=== PATIENT | female | born 1965 | race Caucasian/White ===

== ENCOUNTER 2024-12-17 10:26 | Outpatient (CLI) | payer OTHER, SELFPAY ==
--- OUTSIDE RECORDS SUMMARY | 2024-11-12 08:30 | XMS_ITS | Encounter Summary ---
Author Organization [employer] [facility] [employer] Address [address] [place] [address] Care Team Providers Care Calender Let Off Operator Name Role Phone Nick Rasmussen PA-C Unavailable [phone] Lena Aguilera APRN Primary Care Provider [phone] Nimisha Nuñez PA-C Unavailable [phone] Reason for Visit * Reason Comments Injections Bilateral knee Encounter Details Date Type Department Care Team (Late st Contact Info) Description 11/12/2024 8:30 AM EDT Office Visit [facility] Orthopedics - [address] [place] [address] Nick Rasmussen PA-C [address] [phone] Primary osteoarthritis of right knee (Primary Dx); Primary osteoarthritis of left knee Social History Tobacco Use Types Packs/Day Years Used Date Smoking Tobacco: Never Smokeless Tobacco: Never Alcohol Use Standard Drinks/Week Comments Never 0 (1 standard drink = 0.6 oz pur e alcohol) Interpersonal Safety Answer Date Record ed Family or friends hurt you Not on file 07/19 Family or friends insult you Not on file Family or friends threaten you Not on file 0 07/19/2023 Family or friends scream or curse at you Not on file 07/19/2023 Housing Stability Answer Date Recorded Living situation today Not on file Living situation problems Not on file 2023 Family and Community Support Answer Noam e Recorded Help with Day to Day Activities Not on file 07/19/2023 Feeling Lonely or Isolated Not on file 07/19 Educational Attainment Answer Date Vijay rded Speak language other than Mozambican at home Not on file 07/19/2023 Want help with school or training Not on file 07/19/2023 Depression Answer Date Recorded PHQ-2 Risk Not on file 07/19/2023 Disabilities Answer Date Recorded Difficulty concentrating Not on file 024 Difficulty doing errands alone Not on file 0 07/19/2023 Substance Use Answer Date Recorded Used [...] 8:30 AM EDT NAME: Anisa Hernandes CSN: [id number] : 1965 PCP: Lena Aguilera APRN REASON [...] WITH POLYPECTOMY; Surgeon: Stephani Romero MD; Location: [facility]; Service: Gastroenterology; Laterality: N/A; HYSTERECTOMY KNEE SURGERY [place] COLON CA SCRN NOT HI RSK IND [...] no fatigue, no mood swings. Scribe Attestation: I, Denice Ruiz CMA acted as a scribe and transcribed [...] documentation in its entirety and concur. Electronically Signed, Nick Rasmussen PA-C 11/12/2024 8:37 AM EDT Leyda Young: [...] Care Team (Late st Contact Info) Description 12/18/2024 9:00 AM EDT Procedure Visit [facility] Neurology [address] [place] [address] 12/23/2024 2:15 PM EDT Office Visit [facility] Orthopedics - [facility] [address] [place] [phone] Nick Rasmussen PA-C [address] [place] [phone] 02/11/2025 10:00 AM EDT Office [facility] [address] [place] [address] Nick Rasmussen PA-C [address] [place] [phone] 08/19/2025 9:30 AM EST Appointment [facility] [address] [facility] [address] [place] [address] Scheduled Orders Name Type Priority [...] mg documented in this encounter Care Teams Calender Let Off Operator Relationship Specialty Start Date End Date Lena Aguilera APRN [address] [place] [address] PCP - General Family Medicine 10/28/23 Nick Rasmussen PA-C [address] [place] [address] Orthopedic Surgery 08/07/23 Nimisha Nuñez PA-C [address] [place] [address] Physician Business Continuity Analyst Orthopedic Surgery 02/05/24 documented as of this encounter
--- OUTSIDE RECORDS SUMMARY | 2024-11-19 09:30 | XMS_ITS | Encounter Summary ---
Author Organization [employer] Address [address] [place] [address] Care Team Providers Care Mud Jack Operator Name Role Phone Nick Rasmussen PA-C Unavailable [phone] Lena Aguilera APRN Primary Care Provider [phone] Nimisha Nuñez PA-C Unavailable [phone] Reason for Referral * Other (Routine) - Authorized Specialty Diagnoses / Procedures Referred By Contflakita t Referred To Contact Neurology Diagnoses Numbness and tingling of both upper extremities Procedures EMG W/ NCS Nick Rasmussen PA-C [address] [place] [address] Phone: tel: fax: Sharda Dexter MD [address] [facility] [address] [place] [address] Phone: tel: fax: Referral ID Status Reason Start Date Expiration Date V isits Requested Visits Authorized [id number] Authorized 11/19/2024 11/19/2025 1 1 * Diagnostic X-Ray (Routine) - Closed Specialty Diagnoses / Procedures Referred By Contflakita t Referred To Contact Radiology Diagnoses Bilateral foot pain Procedures XR FOOT BILATERAL 3 VIEW Weight Bearing Nick Rasmussen PA-C [address] [place] [address] Phone: tel: fax: [facility] [address] [place] [address] Phone: tel: fax: Referral ID Status Reason Start Date Expiration Date Visits Re quested Visits Authorized [id number] Closed 11/19/2024 11/19/2025 1 1 * Diagnostic X-Ray (Routine) - Closed Specialty Diagnoses / Procedures Referred By Kai t Referred To Contact Radiology Diagnoses Bilateral hand pain Procedures X-ray hand bilateral PA lateral and oblique Nick Rasmussen PA-C [address] [place] [address] Phone: tel: fax: [facility] [address] [place] [address] Phone: tel: fax: Referral ID Status Reason Start Date Expiration Date Visits Re quested Visits Authorized [id number] Closed 11/19/2024 11/19/2025 1 1 Reason for Visit * Reason Comments Bilateral foot and hand pain Encounter Details Date Type Department Care Team (Late st Contact Info) Description 11/19/2024 9:30 AM EDT Office Visit [facility] Orthopedics - [address] [address] Nick Rasmussen PA-C [address] [place] [address] Numbness and tingling of both upper [...] Date Vijay rded Speak language other than Guamanian at home Not on file 07/19/2023 Want [...] 9:30 AM EDT NAME: Anisa Hernandes CSN: [id number] : 1965 PCP: Lena Aguilera APRN REASON 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[employer]; 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, and 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 [...] WITH POLYPECTOMY; Surgeon: Stephani Romero MD; Location: [facility]; Service: Gastroenterology; Laterality: N/A; HYSTERECTOMY KNEE SURGERY MI COLON CA SCRN NOT HI RSK IND [...] to pinky intact; thumb abduction intact Testing: +Blaireins left, - Qureshi's, - DRUJ, - TFCC compression test, - Grind test 1st CMC, +Phalen's and +Tinel's right Strength: 4/5 Flexion and Extension at wrist; 4/5 top executive strength Neurovascular: capillary refill WNL, 2+ Radial [...] squeeze test of tibial and fibula, - Nellysford test, -too many toes sign, - Metatarsal [...] squeeze test of tibial and fibula, - Nellysford test, -too many toes sign, - Metatarsal squeeze test, - Calcaneal squeeze, - crepitus along plantar fascia Neurovascular: NVI, -Homans Skin: normal appearance with no discoloration or wounds IMAGING/OUTSIDE REPORTS Ordered and reviewed images performed at [facility] today: X-ray hand bilateral PA lateral [...] or worse symptoms occur WBAT Scribe Attestation: Denice Coleman CMA acted as [...] 11/19/2024 10:58 AM EDT Leyda Young: Cheryl FINCH / [...] Description 12/18/2024 9:00 AM EDT Procedure Visit [facility] Neurology - [address] [place] [address] 12/23/2024 2:15 PM EDT Office Visit [facility] Orthopedics - [address] [place] [address] Nick Rasmussen PA-C [address] [place] [address] 02/11/2025 10:00 AM EDT Office Visit [facility] Orthopedics - [address] [place] [address] Nick Rasmussen PA-C [address] [place] [address] 08/19/2025 9:30 AM EST Appointment [address] [place] [address] Scheduled Orders Name Type Priority [...] Antoni Yarbrough. Transcribed by Marquis Stout PA-C us Nick Rasmussen PA-C IMG DIAGNOSTIC IMAGING ORDER DEEPAK Final Result * [...] reviewed, interpreted, and dictated by Dr. Antoni Yarrbough. Transcribed by Marquis Stout PA-C Narrative 11/19/2024 [...] pain documented in this encounter Care Teams Mud Jack Operator Relationship Specialty Start Date End Date Lena Aguilera, KALIN [address] [place] [address] PCP - General Family Medicine 10/28/23 Nick Rasmussen PA-C [address] [place] [address] Orthopedic Surgery 08/07/23 Nimisha Nuñez PA-C [address] [place] [address] Physician Coal And Ash Supervisor Orthopedic Surgery 02/05/24 documented as of this encounter
--- OUTSIDE RECORDS SUMMARY | 2024-11-19 09:40 | XMS_ITS | Encounter Summary ---
Author Organization [employer] Address [address] [place] [address] Care Team Providers Care Needle Loom Tender Name Role Phone Nick Rasmussen PA-C Unavailable [phone] Lena Aguilera APRN Primary Care Provider [phone] Nimisha Nuñez PA-C Unavailable [phone] Reason for Referral * Diagnostic X-Ray (Routine) - Closed Specialty Diagnoses / Procedures Referred By Contac t Referred To Contact Radiology Diagnoses Bilateral hand pain Procedures X-ray hand bilateral PA lateral and oblique Nick Rasmussen PA-C [address] [place] [address] Phone: tel: fax: [facility] Diagnostic Imaging - [facility] [address] [facility] [address] [place] [address] Phone: tel: fax: Referral ID Status Reason Start Date Expiration Date Visits Re quested Visits Authorized [id number] Closed 11/19/2024 11/19/2025 1 1 Reason for Visit * Diagnostic X-Ray (Routine) - Closed Specialty Diagnoses / Procedures Referred By Contac t Referred To Contact Radiology Diagnoses Bilateral hand pain Procedures X-ray hand bilateral PA lateral and oblique Nick Rasmussen PA-C [address] [place] [address] Phone: tel: fax: [facility] Diagnostic Imaging - [address] [place] [address] Phone: tel: fax: Referral ID Status Reason Start Date Expiration Date Visits Re quested Visits Authorized [id number] Closed 11/19/2024 11/19/2025 1 1 Encounter Details Date Type Department Care Team (Late st Contact Info) Description 11/19/2024 9:40 AM EDT - 11/19/2024 11:59 PM EDT Hospital Encounter [facility] Diagnostic Imaging - [address] [facility] [address] [place] [address] Nick Rasmussen PA-C [address] [place] [address] Bilateral hand pain Discharge Disposition: Home or Self Care Social History Tobacco Use Types Packs/Day Years [...] Date Vijay rded Speak language other than Georgian at home Not on file 07/19/2023 Want [...] on file documented as of this encounter Medications at Time of Discharge allopurinoL (ZYLOPRIM) 100 MG tablet Take 1 tablet (100 mg total) by mouth daily. 04/24/2022 Fish OiL capsule Take 1 capsule (1,000 mg total) by mouth 2 (two) times daily. 07/25/2023 levothyroxine (SYNTHROID, LEVOTHROID) 75 MCG tablet Take 1 tablet (75 mcg total) by mouth daily. 05/04/2022 lisinopril-hydroC HLOROthiazide (PRINZIDE,ZESTORE TIC) 20-25 mg per tablet Take 1 tablet by mouth daily. 05/04/2022 metFORMIN (GLUCOPHAGE) 500 MG tablet Take 1 tablet (500 mg total) by mouth 3 (three) times daily. 05/04/2022 methocarbamoL (ROBAXIN) 750 MG tablet Take 1 tablet (750 mg total) by mouth 3 (three) times daily. 05/04/2022 documented as of this encounter Plan of Treatment Upcoming Encounters Date Type Department Care Team (Late st Contact Info) Description 12/18/2024 9:00 AM EDT Procedure Visit [facility] Neurology [address] [facility] [address] [place] [address] 12/23/2024 2:15 PM EDT Office Visit [facility] Orthopedics - [address] [place] [address] Nick Rasmussen PA-C [address] [place] [address] 02/11/2025 10:00 AM EDT Office Visit [facility] Orthopedics - [address] [place] [address] Nick Rasmussen PA-C [address] [place] [address] 08/19/2025 9:30 AM EST Appointment [facility] [address] [facility] [address] [place] [address] documented as of this encounter Procedures Procedure Name Priority Date/Time Associated Diagnosis Comments XR HAND BILATERAL PA LATERAL AND OBLIQUE Routine 11/19/2024 10:11 AM EDT Bilateral hand pain documented in this encounter Results * X-ray hand bilateral [...] documented in this encounter Visit Diagnoses Diagnosis Bilateral hand pain documented in this encounter Care Teams Needle Loom Tender Relationship Specialty Start Date End Date Lena Aguilera APRN [address] [place] [address] PCP - General Family Medicine 10/28/23 Nick Rasmussen PA-C [address] [place] [address] Orthopedic Surgery 08/07/23 Nimisha Nuñez PA-C [address] [place] [address] Physician Vibration Technician Orthopedic Surgery 02/05/24 documented as of this encounter
--- OUTSIDE RECORDS SUMMARY | 2024-11-19 09:40 | XMS_ITS | Encounter Summary ---
Author Organization [employer] Address [address] [place] [address] Care Team Providers Care Sleeping Car Porter Name Role Phone Nick Rasmussen PA-C Unavailable [phone] Lena Aguilera APRN Primary Care Provider [phone] Nimisha Nuñez PA-C Unavailable [phone] Reason for Referral * Diagnostic X-Ray (Routine) - Closed Specialty Diagnoses / Procedures Referred By Contac t Referred To Contact Radiology Diagnoses Bilateral foot pain Procedures XR FOOT BILATERAL 3 VIEW Weight Bearing Nick Rasmussen PA-C [address] [place] [address] Phone: tel: fax: [facility] Diagnostic Imaging - [facility] [address] [facility] [address] [place] [address] Phone: tel: fax: Referral ID Status Reason Start Date Expiration Date Visits Re quested Visits Authorized [id number] Closed 11/19/2024 11/19/2025 1 1 Reason for Visit * Diagnostic X-Ray (Routine) - Closed Specialty Diagnoses / Procedures Referred By Contac t Referred To Contact Radiology Diagnoses Bilateral foot pain Procedures XR FOOT BILATERAL 3 VIEW Weight Bearing Nick Rasmussen PA-C [address] [place] [address] Phone: tel: fax: [facility] Diagnostic Imaging - [address] [place] [address] Phone: tel: fax: Referral ID Status Reason Start Date Expiration Date Visits Re quested Visits Authorized [id number] Closed 11/19/2024 11/19/2025 1 1 Encounter Details Date Type Department Care Team (Late st Contact Info) Description 11/19/2024 9:40 AM EDT - 11/19/2024 11:59 PM EDT Hospital Encounter [facility] Diagnostic Imaging - [address] [facility] [address] [place] [address] Nick Rasmussen PA-C [address] [place] [address] Bilateral foot pain Discharge Disposition: Home or [...] Date Vijay rded Speak language other than Persian at home Not on file 07/19/2023 Want [...] Description 12/18/2024 9:00 AM EDT Procedure Visit [facility] Neurology - [address] [place] [address] 12/23/2024 2:15 PM EDT Office Visit [facility] Orthopedics - [address] [place] [address] Nick Rasmussen PA-C [address] [place] [address] 02/11/2025 10:00 AM EDT Office Visit [facility] Orthopedics - [address] [place] [address] Nick Rasmussen PA-C [address] [place] [address] 08/19/2025 9:30 AM EST Appointment [facility] [address] [facility] [address] [place] [address] documented as of this encounter [...] by Marquis Stout PA-C Nick Rasmussen PA-C [facility] [place] [place] DIAGNOSTIC IMAGING ORDER DEEPAK Final Result documented in this encounter Visit Diagnoses Diagnosis Bilateral foot pain documented in this encounter Care Teams Sleeping Car Porter Relationship Specialty Start Date End Date Lena Aguilera APRN [address] [place] [address] PCP - General Family Medicine 10/28/23 Nick Rasmussen PA-C [address] [place] [address] Orthopedic Surgery 08/07/23 Nimisha Nuñez PA-C [address] [place] [address] Physician Aegis Console Operator Track Orthopedic Surgery 02/05/24 documented as of this encounter
--- OUTSIDE RECORDS SUMMARY | 2024-12-05 10:57 | XMS_ITS | Encounter Summary ---
Author Organization [email or web address] Address [address] [place] [address] Care Team Providers Care Termite Inspector Name Role Phone Nick Rasmussen PA-C Unavailable [phone] Lena Aguilera APRN Primary Care Provider [phone] Nimisha Nuñez PA-C Unavailable [phone] Reason for Visit * Reason Comments Dizziness Pt presents to ED fo r dizziness, chest pain, earache, and headache. Onset 30 mins ago. Encounter Details Date Type Department Care Team (Late st Contact Info) Description 12/05/2024 10:57 AM EDT - 12/05/2024 2:53 PM EDT Emergency [facility] Emergency Department [address] [place] [id number] Mayank Patrick MD [facility] [place] [id number] Acute cystitis with hematuria (Primary Dx); Chest [...] Care Everywhere. * Urinary Tract Infection Adult [id number] (Greenlandic) documented in this encounter Medications at Time [...] of this encounter ED Notes * Yamel Hurt NP - 12/05/2024 12:20 PM EDT Subjective Chief [...] POLYPECTOMY; Surgeon: Stephani Romero MD; Location: [facility]; Service: Gastroenterology; Laterality: N/A; HYSTERECTOMY KNEE SURGERY IL COLON CA SCRN NOT HI RSK IND [...] Yellow Clarity, UA Turbid (A) Clear Specific [place], UA 1.024 1.005 - 1.030 pH, UA [...] presents in no acute emergent distress. Differential diagnosis include but not limited to PR, dehydration, electrolyte imbalance, anxiety. During patient's visit [...] Family Medicine Relationship: PCP - General Chanda FINCH [phone] Next Steps: Schedule an appointment as soon as possible for a visit Instructions: As needed, If symptoms worsen Associated attestation - Mayank Patrick MD - 12/06/2024 6:16 AM CDT Mayank Patrick MD: I saw the patient [id number]. I performed a substantive portion of the MDM. Chest x-ray was personally reviewed and independently interpreted by me with findings: No obvious pneumonia, no pneumothorax. documented in this encounter Plan of Treatment Upcoming Encounters Date Type Department Care Team (Late st Contact Info) Description 12/18/2024 9:00 AM EDT Procedure Visit [facility] Neurology - [place] [address] [place] [address] 12/23/2024 2:15 PM EDT Office Visit [facility] Orthopedics - [address] [place] [address] Nick Rasmussen PA-C [address] [place] [address] 02/11/2025 10:00 AM EDT Office Visit [facility] Orthopedics - [address] [place] [address] Nick Rasmussen PA-C [address] [place] [address] 08/19/2025 9:30 AM EST Appointment [facility] [address] [facility] [address] [place] [address] documented as of this encounter [...] - 58.8 pg/mL 12/05/2024 1:45 PM EDT [facility] Comment: Troponin Result (pg/mL) *Interpretation [...] 1:20 PM EDT 12/05/2024 1:20 PM EDT us Yamel Hurt NP LAB BLOOD ORDERABLES Final Res ult [facility] [address] [place], [place] [address] [email or web address]] [phone] * Urine Culture (12/05/2024 12:45 PM EDT) Result Recollect Specimen - 3 or more organisms suggests contamination 12/07/2024 8:55 AM EDT [facility] Urine URINE SPECIMEN COLLECTION, CLEAN CATCH / Unknown 12/05/2024 12:45 PM EDT 12/05/2024 2:19 PM EDT Yamel Hurt NP MICROBIOLOGY - GENERAL ORDERAB LES Final Result Performing Organization Address City/[facility]/ZIP Co de Phone Number [facility] [address] [phone] * (ABNORMAL) Urinalysis Microscopic Only (12/05/2024 12:45 PM EDT) WBC, UA 51-100(A) None Seen /HPF 12/05/2024 2:20 PM EDT [facility] RBC, UA 6-10(A) None Seen /HPF 12/05/2024 2:20 PM EDT [facility] Bacteria, UA 2+(A) Trace, None Seen 12/05/2024 2:20 PM EDT [facility] Mucus 1+(A) None Seen 12/05/2024 2:20 PM EDT [facility] SQUAMOUS EPITHELIAL 3-5(A) None Seen /HPF 12/05/2024 2:20 PM EDT [facility] TRANSITIONAL EPITHELIAL CELLS 0-2(A) None Seen /HPF 12/05/2024 2:20 PM EDT [facility] Non Squamous Epithelial Cells Present Absent 12/05/2024 2:20 PM EDT [facility] Urine URINE SPECIMEN COLLECTION, CLEAN CATCH / Unknown 12/05/2024 12:45 PM EDT 12/05/2024 2:07 PM EDT us Yamel Hurt NP URINE ORDERABLES Final Result Performing Organization Address City/[facility]/ZIP Co de Phone Number [facility] [address] [place] [address], [facility] [phone] * (ABNORMAL) Urinalysis, Reflex Microscopic and Culture If Indicated (12/05/2024 12:45 PM EDT) Color, UA Yellow 12/05/2024 2:20 PM EDT [facility] Clarity, UA Turbid(A) Clear 12/05/2024 2:20 PM EDT [facility] Specific [place], UA 1.024 1.005 - 1.030 12/05/2024 2:20 PM EDT [facility] pH, UA 7.0 6.0 - 8.0 12/05/2024 2:20 PM EDT [facility] Leukocytes, UA 500 Evangelist/uL(A) Negative 12/05/2024 2:20 PM EDT [facility] Nitrite, UA Negative Negative 12/05/2024 2:20 PM EDT [facility] Protein, UA Trace(A) Negative 12/05/2024 2:20 PM EDT [facility] Glucose, UA Normal Normal 12/05/2024 2:20 PM EDT [facility] Ketones, UA Negative Negative 12/05/2024 2:20 PM EDT [facility] Bilirubin, UA Negative Negative 12/05/2024 2:20 PM EDT [facility] Blood, UA Negative Negative 12/05/2024 2:20 PM EDT [facility] Urobilinogen, UA Normal Normal 12/05/2024 2:20 PM EDT [facility] Specimen Source Urine, Clean Catch 12/05/2024 2:20 PM EDT [facility] Urine URINE SPECIMEN COLLECTION, CLEAN CATCH / Unknown 12/05/2024 12:45 PM EDT 12/05/2024 2:07 PM EDT Yamel Hurt JUICE PACKAGING MACHINES SETTER URINE ORDERABLES Final Result [facility] [address] [phone] * XR chest 1 view portable / [...] - 12.0 seconds 12/05/2024 11:48 AM EDT [facility] INR 0.95 0.80 - 1.10 12/05/2024 11:48 AM EDT [facility] Comment: Recommended therapeutic ranges using [...] NP LAB BLOOD ORDERABLES Final Res ult [facility] [address] [phone] * aPTT (12/05/2024 11:30 AM EDT) [facility] aPTT 25.9 22.0 - 32.0 seconds 12/05/2024 11:48 AM EDT [facility] Blood Venipuncture / Unknown 12/05/2024 11:30 AM EDT 12/05/2024 11:30 AM EDT [facility] LAB BLOOD ORDERABLES Final Res ult Performing Organization Address [facility] Co de Phone Number [facility] [address] [phone] * High Sensitivity Troponin I (12/05/2024 11:30 AM EDT) [facility] Troponin I High Sensitivity (pg/mL) 5.4 3 - 58.8 pg/mL 12/05/2024 11:59 AM EDT [facility] Comment: Troponin Result (pg/mL) *Interpretation [...] 11:30 AM EDT 12/05/2024 11:30 AM EDT [facility] LAB BLOOD ORDERABLES Final Res ult Performing Organization Address [facility] de Phone Number [facility] [address] [phone] * (ABNORMAL) Comprehensive metabolic panel (12/05/2024 11:30 AM EDT) [facility] Sodium 138 136 - 146 meq/L 12/05/2024 11:55 AM EDT [facility] Potassium 3.9 3.5 - 5.1 meq/L 12/05/2024 11:55 AM EDT [facility] Chloride 106 102 - 112 meq/L 12/05/2024 11:55 AM [facility] CO2 26 21 - 32 meq/L 12/05/2024 11:55 AM [facility] Calcium 9.6 8.5 - 10.1 mg/dL 12/05/2024 11:55 AM [facility] Glucose 109(H) 74 - 106 mg/dL 12/05/2024 11:55 AM [facility] BUN 24(H) 7 - 22 mg/dL 12/05/2024 11:55 AM [facility] Creatinine 1.18(H) 0.55 - 1.02 mg/dL 12/05/2024 11:55 AM [facility] BUN/Creatinine 20 8 - 20 12/05/2024 11:55 AM [facility] Albumin 3.9 3.4 - 5.0 g/dL 12/05/2024 11:55 AM [facility] Alkaline Phosphatase 97 27 - 136 U/L 12/05/2024 11:55 AM [facility] ALT 32 12 - 78 U/L 12/05/2024 11:55 AM [facility] AST 24 5 - 37 U/L 12/05/2024 11:55 AM [facility] Total Bilirubin 0.5 0.2 - 1.3 mg/dL 12/05/2024 11:55 AM [facility] Protein, Total 7.6 6.4 - 8.2 gm/dL 12/05/2024 11:55 AM [facility] Anion Gap 10 9 - 20 12/05/2024 11:55 AM [facility] A/G Ratio 1.1 1.1 - 2.5 12/05/2024 11:55 AM [facility] Globulin 3.7 1.5 - 4.5 g/dL 12/05/2024 11:55 AM [facility] Osmolality Calc 280.3 mOsm/kg 11:55 AM [facility] eGFR (mL/min/1.73m2) 53(L) >=60 mL/min/1.7 3m2 12/05/2024 11:55 AM EDT [facility] Comment:ESTIMATED GFR IS NOT ACCURATE CREATININE CLEARANCE IN PREDICTING GLOMERULAR FILTRATION RATE. ESTIMATED GFR IS NOT APPLICABLE FOR DIALYSIS PATIENTS. Blood Venipuncture / Unknown 12/05/2024 11:30 AM EDT 12/05/2024 11:30 AM EDT us Yamel Hurt JUICE PACKAGING MACHINES SETTER LAB BLOOD ORDERABLES Final Res ult [facility] [address] [phone] * (ABNORMAL) CBC with automated diff (12/05/2024 11:30 AM EDT) WBC 5.8 3.9 - 10.0 K/ L 12/05/2024 11:34 AM EDT [facility] RBC 4.85 3.93 - 6.08 M/ L 12/05/2024 11:34 AM EDT [facility] Hemoglobin 13.8 11.2 - 15.7 GM/DL 12/05/2024 11:34 AM EDT [facility] Hematocrit 41.5 34.1 - 44.9 % 12/05/2024 11:34 AM EDT [facility] MCV 86 79 - 95 fL 12/05/2024 11:34 AM EDT [facility] MCH 28.5 25.6 - 32.2 pg 12/05/2024 11:34 AM EDT [facility] MCHC 33.3 32.2 - 36.5 GM/DL 12/05/2024 11:34 AM EDT [facility] RDW 13.3 11.6 - 14.4 % 12/05/2024 11:34 AM EDT [facility] Platelets 195 163 - 369 K/CU MM 12/05/2024 11:34 AM EDT [facility] MPV 9.6 9.4 - 12.4 fL 12/05/2024 11:34 AM EDT [facility] % Neutros 70 34 - 71 % 12/05/2024 11:34 AM EDT [facility] % Lymphs 16(L) 19 - 53 % 12/05/2024 11:34 AM EDT [facility] % Monos 9 4 - 13 % 12/05/2024 11:34 AM EDT [facility] % Eos 5 1 - 7 % 12/05/2024 11:34 AM EDT [facility] % Baso 1 0 - 1 % 12/05/2024 11:34 AM EDT [facility] # Neutros 4.02 1.56 - 6.13 K/ L 12/05/2024 11:34 AM EDT [facility] # Lymphs 0.90(L) 1.18 - 3.74 K/ L 12/05/2024 11:34 AM EDT [facility] # Monos 0.52 0.24 - 0.82 K/ L 12/05/2024 11:34 AM EDT [facility] # Eos 0.27 0.04 - 0.54 K/ L 12/05/2024 11:34 AM EDT [facility] # Baso 0.05 0.01 - 0.08 K/ L 12/05/2024 11:34 AM EDT [facility] Immature Granulocytes-Re lative 0.30 0.00 - 0.60 % 12/05/2024 11:34 AM EDT [facility] # IG 0.02 0.00 - 0.05 K/uL 12/05/2024 11:34 AM EDT [facility] Blood Venipuncture / Unknown 12/05/2024 11:30 AM EDT 12/05/2024 11:30 AM EDT Narrative [facility] - 12/05/2024 11:34 AM EDT [...] Blast? Flag noted Atypical Lymph flag noted us Yamel Hurt NP LAB BLOOD ORDERABLES Final Res ult [facility] [address] [phone] * ECG 12 lead (12/05/2024 11:03 AM EDT) SYSTOLIC BLOOD PRESSURE (MCT) 127 mmHg GE MUSE DIASTOLIC BLOOD PRESSURE (MCT) 77 mmHg GE MUSE VENTRICULAR RATE EKG/MIN 73 BPM GE MUSE ATRIAL RATE (MCT) 73 BPM GE MUSE IL Interval 142 ms GE MUSE QRS-INTERVAL (MSEC) 66 ms GE MUSE QT Interval 394 ms GE MUSE QTC Interval 434 ms GE MUSE P [place] 38 degrees GE MUSE R AXIS (MCT) 67 degrees GE MUSE T Wave [place] 55 degrees GE MUSE [place] Diagnosis Normal sinus rhythm Low voltage QRS Borderline ECG No previous ECGs available Confirmed by Bhumika URBANO SUZANNE ([id number]) on 12/09/2024 10:52:48 AM GE MUSE 12/05/2024 11:0 3 AM EDT 12/09/2024 10:52 AM EDT Yamel Hurt NP ECG ORDERABLES Final Result GE MUSE documented in this encounter Visit Diagnoses Diagnosis Acute cystitis with hematuria- Primary Chest pain, unspecified type documented in this encounter Administered Medications Inactive Administered Medications - up to 3 most recent administrations Medication Order MAR Action Action Date Dose Rate Site fluconazole (DIFLUCAN) tablet 150 mg 150 mg Once, oral, On 12/05/24 at 1445, For 1 dose, Caution: Recommend [...] 4 mg 4 mg Once, intravenous, On 12/05/24 at 1130, For 1 dose, For IV push, give over 2 - 5 minutes. Given 12/05/2024 11:50 AM EDT 4 mg documented in this encounter Active and Recently Administered Medications Times are shown in EDT. Scheduled Medication Order 12/03/2024 12/04/2024 12/05/2024 fluconazole (DIFLUCAN) tablet 150 mg (COMPLETED) 150 mg Once, oral, On 12/05/24 at 1445, For 1 dose, Caution: Recommend wearing gloves during administration. DO NOT BREAK/CRUSH/CHEW. Employees who are , trying to become , or should not handle this medication. Dispose of trace medication (including packaging) in the BLACK waste bin. 1450 (Given - Provid er: Melvin Blair, BENJAMIN) ketorolac (TORADOL) injection 15 mg (COMPLETED) 15 mg Once, intravenous, On 12/05/24 at 1130, For 1 dose 1150 (Given - Provid er: Basil Hilton, BENJAMIN) ondansetron (ZOFRAN) injection 4 mg (COMPLETED) 4 mg Once, intravenous, On 12/05/24 at 1130, For 1 dose, For IV push, give over 2 - 5 minutes. 1150 (Given - Provid er: Basil Hilton, BENJAMIN) documented in this encounter Care Teams Termite Inspector Relationship Specialty Start Date End Date Lena Aguilera APRN [address] [place] [address] PCP - General Family Medicine 10/28/23 Nick Rasmussen PA-C [address] [place] [address] Orthopedic Surgery 08/07/23 Nimisha Nuñez PA-C [address] [place] [address] Physician Net Developer Software Engineer C Orthopedic Surgery 02/05/24 documented as of this encounter
--- NOTE | 2024-12-17 10:29 | XR_ITS ---
FINAL REPORT CLINICAL HISTORY: pneumona, pain on rt side, difficulty breathing, x's few weeks, non-smoker FINDINGS: CHEST 2 VIEWS PA AND LATERAL The heart is normal in size. The mediastinum is unremarkable. The lungs are clear. There is no pneumothorax. IMPRESSION: No acute process. Reviewed, Interpreted and Dictated by Antoni Yarbrough MD Transcribed by Kelly Saez Authenticated and [facility]
--- OUTSIDE RECORDS SUMMARY | 2024-12-17 10:34 | XMS_ITS | Clinical Summary ---
Author Organization [employer] 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 04/24/2022 Active levothyroxine (SYNTHROID, LEVOTHROID) 75 MCG tablet Take 1 tablet (75 mcg total) by mouth daily. 05/04/2022 Active lisinopril-hydr oCHLOROthiazide (PRINZIDE,ZESTO RETIC) 20-25 mg per tablet Take 1 tablet by mouth daily. 05/04/2022 Active metFORMIN (GLUCOPHAGE) 500 MG tablet Take 1 tablet (500 mg total) by mouth 3 (three) times daily. 05/04/2022 Active methocarbamoL (ROBAXIN) 750 MG tablet Take 1 tablet (750 mg total) by mouth 3 (three) times daily. 05/04/2022 Active Fish OiL capsule Take 1 capsule (1,000 mg total) by mouth 2 (two) times daily. 07/25/2023 Active cefdinir (OMNICEF) 300 mg capsule Take 1 capsule (300 mg total) by mouth 2 (two) times daily for 7 days. 14 capsule 12/05/2024 12/13/19 25 fluconazole (DIFLUCAN) 150 MG tablet Take 1 tablet (150 mg total) by mouth once for 1 dose. 1 tablet 12/05/2024 12/06/19 25 Hospital, Clinic, or Other Facility Administered Medication Ordered Dose Route Frequency Start Date End Date Status lidocaine (XYLOCAINE) injection 1%Indications:Primary osteoarthritis of left knee 1 mL OTHER Once 10/25/2022 Active methylPREDNISolone acetate (DEPO-MEDROL) injection 80 mgIndications:Primary osteoarthritis of left knee 80 mg IAtc Once 10/25/2022 Active Active Problems Problem Noted Date Diagnosed Date De Quervain's tenosynovitis, left 11/19/2024 Primary osteoarthritis of both hands 11/19/2024 Calcaneal spur of left foot 11/19/2024 Bilateral foot pain 11/19/2024 Multiple joint pain 11/19/2024 Numbness and tingling of both upper extremities 11/19/2024 Primary osteoarthritis of right knee 01/23/2023 Primary osteoarthritis of left knee 10/25/2022 Primary osteoarthritis of both knees 06/13/2022 Internal derangement of right knee 06/13/2022 Status post arthroscopy of right knee 06/13/2022 Encounters Date Type Department Care Team Description 12/05/2024 10:57 AM EDT - 12/05/2024 2:53 PM EDT Emergency [facility] Emergency Department [address] [place] [phone] Mayank Patrick MD Acute cystitis with hematuria (Primary Dx); Chest pain, unspecified type Discharge Disposition: Home or Self Care 12/05/2024 Travel 11/19/2024 9:40 AM EDT - 11/19/2024 11:59 PM EDT Hospital Encounter [facility] Diagnostic Imaging - [address] [facility] [address] [place] [address] Nick Rasmussen PA-C Bilateral foot pain Discharge Disposition: Home or Self Care 11/19/2024 9:40 AM EDT - 11/19/2024 11:59 PM EDT Hospital Encounter [facility] Diagnostic Imaging - [address] [facility] [address] [place] [address] Nick Rasmussen PA-C Bilateral hand pain Discharge Disposition: Home or Self Care 11/19/2024 9:30 AM EDT Office Visit [facility] Orthopedics [facility] [address] [place] [address] Nick Rasmussen PA-C Numbness and tingling of both upper extremities (Primary Dx); Bilateral hand pain; Bilateral foot pain; Calcaneal spur of left foot; Primary osteoarthritis of both hands; De Quervain's tenosynovitis, left; Multiple joint pain 11/12/2024 8:30 AM EDT Office Visit [facility] [address] [place] [address] Nick Rasmussen PA-C Primary osteoarthritis of right knee (Primary Dx); Primary osteoarthritis of left knee 10/30/2024 Outside Orders [place] [address] Physical Therapy [address] [place] [address] [place] [phone] Lena Aguilera APRN Urinary incontinence (Primary Dx) 09/24/2024 Patient Outreach [address] [phone] Rama Jung RN 09/23/2024 10:12 AM EDT - 09/23/2024 11:59 PM EDT Hospital Encounter [address] [phone] Abnormal mammogram Discharge Disposition: Home or Self Care 09/23/2024 9:58 AM EDT - 09/23/2024 10:11 AM EDT Hospital Encounter [address] [phone] Abnormal mammogram Discharge Disposition: Home or Self Care 09/23/[address] [phone] Rama Jung RN from Last 3 Months Family History Medical History Relation Name Comments Cancer Other Gout Other Heart disease Other High blood pressure Other Kidney disease Other Relation Name Status Comments Other Social History Tobacco Use Types Packs/Day Years Used Date Smoking Tobacco: Never Smokeless Tobacco: Never Tobacco Cessation:Counseling Given: Not Answered Alcohol Use Standard Drinks/Week Comments Never 0 [...] Date Vijay rded Speak language other than Pakistani at home Not on file 07/19/2023 Want [...] on file Sexual Orientation Not on file Last Filed Vital Signs Vital Sign Reading Time Taken Comments Blood Pressure 125/72 12/05/2024 11:06 AM EDT Pulse 75 12/05/2024 11:06 AM EDT Temperature 36.8 C (98.3 F) 12/05/2024 11:06 AM EDT Respiratory Rate 16 12/05/2024 11:06 AM EDT Oxygen Saturation 97% 12/05/2024 11:06 AM EDT Inhaled Oxygen Concentration - - Weight 88 kg (194 lb) 12/05/2024 11:06 AM EDT Height 160 cm (5' 3 ) 11/19/2024 10:14 AM EDT Body Mass Index 34.37 11/19/2024 10:14 AM EDT Plan of Treatment Upcoming Encounters Date Type Department Care Team (Late st Contact Info) Description 12/18/2024 9:00 AM EDT Procedure Visit [facility] Neurology - [place] [address] [place] [address] 12/23/2024 2:15 PM EDT Office Visit [facility] Orthopedics - [address] [place] [address] Nick Rasmussen PA-C [address] [place] [address] 02/11/2025 10:00 AM EDT Office Visit [facility] Orthopedics - [address] [place] [address] Nick Rasmussen PA-C [address] [place] [address] 08/19/2025 9:30 AM EST Appointment [facility] [address] [facility] [address] [place] [address] Health Maintenance Due Date Last Done Comments CT Colonography 1963 FOBT/FIT 1963 Fit-DNA (Cologuard) 1965 Sigmoidoscopy 1963 Depression Screening (12+) 1975 HIV Screening 10/23/1978 Hepatitis C Screening 10/23/1981 DTAP/TDAP/TD VACCINES (1 - Tdap) 10/23/1982 Pap Smear 10/23/1984 Lipid Panel 10/23/2008 Pneumococcal 50+ years (1 of 1 - PCV) 10/23/2013 Shingles Vaccine (Zoster) (1 of 2) 10/23/2013 COVID-19 VACCINE (1 - season) 2024 Influenza Vaccine (Season Ended) 2025 Tobacco Cessation Counseling and Screening (12+) 12/05/2025 12/05/2024 Breast Cancer Screening 09/10/2026 09/10/2024, 08/13 Colonoscopy 10/27/2028 10/28/2023 Colorectal Cancer Screening 10/27/2028 Respiratory Syncytial Virus (RSV) Adult or (1 - 1-dose 75+ series) 10/23/2038 Procedures Procedure Name Priority Date/Time Associated Diagnosis Comments HIGH SENSITIVITY TROPONIN I STAT 12/05/2024 1:20 PM EDT URINALYSIS MICROSCOPIC STAT 12/05/2024 12:45 PM EDT URINALYSIS, REFLEX MICROSCOPIC AND CULTURE IF INDICATED STAT 12/05/2024 12:45 PM EDT URINE CULTURE STAT 12/05/2024 12:45 PM EDT XR CHEST 1 VIEW PORTABLE / BEDSIDE STAT 12/05/2024 11:32 AM EDT PROTHROMBIN TIME/INR STAT 12/05/2024 11:30 AM EDT APTT STAT 12/05/2024 11:30 AM EDT HIGH SENSITIVITY TROPONIN I STAT 12/05/2024 11:30 AM EDT COMPREHENSIVE METABOLIC PANEL STAT 12/05/2024 11:30 AM EDT CBC W/ AUTO DIFF STAT 12/05/2024 11:3 0 AM EDT FS_MODEL_IP_ECG 12-LEAD STAT 12/05/2024 11:03 AM EDT XR HAND BILATERAL PA LATERAL AND OBLIQUE Routine 11/19/2024 10:11 AM EDT Bilateral hand pain XR FOOT BILATERAL 3 VIEW Routine 11/19/2024 10:10 AM EDT Bilateral foot pain MAMMO POST CLIP PLACEMENT LEFT Routine 09/23/2024 10:59 AM EDT Abnormal mammogram US GUIDED BREAST BIOPSY LEFT Routine 09/23/2024 10:50 AM EDT Abnormal mammogram TISSUE EXAM [facility] AP Routine 09/23/2024 10:47 AM EDT Abnormal mammogram MM DIGITAL MAMMO DIAGNOSTIC WITH JJ LEFT Routine 09/10/2024 11:18 AM EDT Abnormal mammogram from Last 3 Months or Most Recently Relevant to Health Maintenance Results * High Sensitivity Troponin I (12/05/2024 1:20 PM EDT) Only the most recent of2 resultswithin the time period is included. Troponin I High Sensitivity (pg/mL) 5.9 3 - 58.8 pg/mL 12/05/2024 1:45 PM EDT [facility] Comment: Troponin Result (pg/mL) *Interpretation [...] 12/05/2024 1:20 PM EDT us Yamel Hurt BLENDING TANK TENDER HELPER LAB BLOOD ORDERABLES Final Res ult [facility] [address] [phone] * (ABNORMAL) Urinalysis, Reflex Microscopic and Culture If Indicated (12/05/2024 12:45 PM EDT) Color, UA Yellow 12/05/2024 2:20 PM EDT [facility] Clarity, UA Turbid(A) Clear 12/05/2024 2:20 PM EDT [facility] Specific [place], UA 1.024 1.005 - 1.030 12/05/2024 2:20 PM EDT [facility] pH, UA 7.0 6.0 - 8.0 12/05/2024 2:20 PM EDT [facility] Leukocytes, UA 500 Evangelist/uL(A) Negative 12/05/2024 2:20 PM EDT [facility] Nitrite, UA Negative Negative 12/05/2024 2:20 PM EDT [facility] Protein, UA Trace(A) Negative 12/05/2024 2:20 PM EDT [facility] Glucose, UA Normal Normal 12/05/2024 2:20 PM EDT [facility] Ketones, UA Negative Negative 12/05/2024 2:20 PM EDT [facility] Bilirubin, UA Negative Negative 12/05/2024 2:20 PM EDT [facility] Blood, UA Negative Negative 12/05/2024 2:20 PM EDT [facility] Urobilinogen, UA Normal Normal 12/05/2024 2:20 PM EDT [facility] Specimen Source Urine, Clean Catch 12/05/2024 2:20 PM EDT [facility] Urine URINE SPECIMEN COLLECTION, CLEAN CATCH / Unknown 12/05/2024 12:45 PM EDT 12/05/2024 2:07 PM EDT Yamel Hurt NP URINE ORDERABLES Final Result Performing Organization Address City/State/[facility] Co de Phone Number [facility] [address] [place] [address] * (ABNORMAL) Urinalysis Microscopic Only (12/05/2024 12:45 PM EDT) WBC, UA 51-100(A) None Seen /HPF 12/05/2024 2:20 PM EDT [facility] RBC, UA 6-10(A) None Seen /HPF 12/05/2024 2:20 PM EDT [facility] Bacteria, UA 2+(A) Trace, None Seen 12/05/2024 2:20 PM EDT [facility] Mucus 1+(A) None Seen 12/05/2024 2:20 PM EDT [facility] SQUAMOUS EPITHELIAL 3-5(A) None Seen /HPF 12/05/2024 2:20 PM EDT [facility] TRANSITIONAL EPITHELIAL CELLS 0-2(A) None Seen /HPF 12/05/2024 2:20 PM EDT [facility] Non Squamous Epithelial Cells Present Absent 12/05/2024 2:20 PM EDT [facility] Urine URINE SPECIMEN COLLECTION, CLEAN CATCH / Unknown 12/05/2024 12:45 PM EDT 12/05/2024 2:07 PM EDT Yamel Hurt NP URINE ORDERABLES Final Result Performing Organization Address City/[facility]/ZIP Co de Phone Number [facility] [address] [place] [address], [facility] [phone] * Urine Culture (12/05/2024 12:45 PM EDT) Result Recollect Specimen - 3 or more organisms suggests contamination 12/07/2024 8:55 AM EDT [facility] Urine URINE SPECIMEN COLLECTION, CLEAN CATCH / Unknown 12/05/2024 12:45 PM EDT 12/05/2024 2:19 PM EDT Yamel Hurt NP MICROBIOLOGY - GENERAL ORDERAB LES Final Result Performing Organization Address [facility]/ZIP Co de Phone Number [facility] [address] [place] [address], [facility] [phone] * XR chest 1 view portable / [...] Jonny Rodriguez. Transcribed by Agnes Verdin PA-C. Yamel Hurt NP IMG DIAGNOSTIC IMAGING ORDERAB LES Final Result * (ABNORMAL) CBC with automated diff (12/05/2024 11:30 AM EDT) WBC 5.8 3.9 - 10.0 K/ L 12/05/2024 11:34 AM EDT [facility] RBC 4.85 3.93 - 6.08 M/ L 12/05/2024 11:34 AM EDT [facility] Hemoglobin 13.8 11.2 - 15.7 GM/DL 12/05/2024 11:34 AM EDT [facility] Hematocrit 41.5 34.1 - 44.9 % 12/05/2024 11:34 AM EDT [facility] MCV 86 79 - 95 fL 12/05/2024 11:34 AM EDT [facility] MCH 28.5 25.6 - 32.2 pg 12/05/2024 11:34 AM EDT [facility] MCHC 33.3 32.2 - 36.5 GM/DL 12/05/2024 11:34 AM EDT [facility] RDW 13.3 11.6 - 14.4 % 12/05/2024 11:34 AM EDT [facility] Platelets 195 163 - 369 K/CU MM 12/05/2024 11:34 AM EDT [facility] MPV 9.6 9.4 - 12.4 fL 12/05/2024 11:34 AM EDT [facility] % Neutros 70 34 - 71 % 12/05/2024 11:34 AM EDT [facility] % Lymphs 16(L) 19 - 53 % 12/05/2024 11:34 AM EDT [facility] % Monos 9 4 - 13 % 12/05/2024 11:34 AM EDT [facility] % Eos 5 1 - 7 % 12/05/2024 11:34 AM EDT [facility] % Baso 1 0 - 1 % 12/05/2024 11:34 AM EDT [facility] # Neutros 4.02 1.56 - 6.13 K/ L 12/05/2024 11:34 AM EDT [facility] # Lymphs 0.90(L) 1.18 - 3.74 K/ L 12/05/2024 11:34 AM EDT [facility] # Monos 0.52 0.24 - 0.82 K/ L 12/05/2024 11:34 AM EDT [facility] # Eos 0.27 0.04 - 0.54 K/ L 12/05/2024 11:34 AM EDT [facility] # Baso 0.05 0.01 - 0.08 K/ L 12/05/2024 11:[facility] Immature Granulocytes-Re lative 0.30 0.00 - 0.60 % 12/05/2024 11:34 AM [facility] # IG 0.02 0.00 - 0.05 K/uL 12/05/2024 11:34 AM T [facility] Blood Venipuncture / Unknown 12/05/2024 11:30 AM EDT 12/05/2024 11:30 AM EDT [facility] - 12/05/2024 11:34 AM EDT When [...] Flag noted Atypical Lymph flag noted Yamel Blu BLENDING TANK TENDER HELPER LAB BLOOD ORDERABLES Final Res ult Performing Organization Address City/[facility]/ZIP Co de Phone Number [facility] [address] [phone] * aPTT (12/05/2024 11:30 AM EDT) aPTT 25.9 22.0 - 32.0 seconds 12/05/2024 11:48 AM EDT [facility] Blood Venipuncture / Unknown 12/05/2024 11:30 AM EDT 12/05/2024 11:30 AM EDT [facility] LAB BLOOD ORDERABLES Final Res ult Performing Organization Address [facility] Co de Phone Number [facility] [address] [phone] * Prothrombin time/INR (12/05/2024 11:30 AM EDT) Protime 10.4 9.0 - 12.0 seconds 12/05/2024 11:48 AM EDT [facility] INR 0.95 0.80 - 1.10 12/05/2024 11:48 AM EDT [facility] Comment: Recommended therapeutic ranges using International Normalized Ratio (INR) are: INR RANGE 2.0 - 3.0 Routine oral anticoagulant therapy 2.5 - 3.5 Oral anticoagulant therapy for patients with thromboembolic events on standard doses of Coumadin and those with mechanical heart valves. Blood Venipuncture / Unknown 12/05/2024 11:30 AM EDT 12/05/2024 11:30 AM EDT [facility] LAB BLOOD ORDERABLES Final Res ult Performing Organization Address [facility] Co de Phone Number [facility] [address] [phone] * (ABNORMAL) Comprehensive metabolic panel (12/05/2024 11:30 AM EDT) Sodium 138 136 - 146 meq/L 12/05/2024 11:55 AM [facility] Potassium 3.9 3.5 - 5.1 meq/L 12/05/2024 11:55 AM [facility] Chloride 106 102 - 112 meq/L 12/05/2024 11:55 AM [facility] CO2 26 21 - 32 meq/L 12/05/2024 11:55 AM [facility] Calcium 9.6 8.5 - 10.1 mg/dL 12/05/2024 11:55 AM [facility] Glucose 109(H) 74 - 106 mg/dL 12/05/2024 11:55 AM [facility] BUN 24(H) 7 - 22 mg/dL 12/05/2024 11:55 AM [facility] Creatinine 1.18(H) 0.55 - 1.02 mg/dL 12/05/2024 11:55 AM [facility] BUN/Creatinine 20 8 - 20 12/05/2024 11:55 AM [facility] Albumin 3.9 3.4 - 5.0 g/dL 12/05/2024 11:55 AM [facility] Alkaline Phosphatase 97 27 - 136 U/L 12/05/2024 11:55 AM [facility] ALT 32 12 - 78 U/L 12/05/2024 11:55 AM [facility] AST 24 5 - 37 U/L 12/05/2024 11:55 AM [facility] Total Bilirubin 0.5 0.2 - 1.3 mg/dL 12/05/2024 11:55 AM [facility] Protein, Total 7.6 6.4 - 8.2 gm/dL 12/05/2024 11:55 AM [facility] Anion Gap 10 9 - 20 12/05/2024 11:55 AM [facility] A/G Ratio 1.1 1.1 - 2.5 12/05/2024 11:55 AM [facility] Globulin 3.7 1.5 - 4.5 g/dL 12/05/2024 11:55 AM EDT [facility] Osmolality Calc 280.3 mOsm/kg 11:55 AM EDT [facility] eGFR (mL/min/1.73m2) 53(L) >=60 mL/min/1.7 3m2 12/05/2024 11:55 AM EDT [facility] Comment:ESTIMATED GFR IS NOT ACCURATE CREATININE CLEARANCE IN PREDICTING GLOMERULAR FILTRATION RATE. ESTIMATED GFR IS NOT APPLICABLE FOR DIALYSIS PATIENTS. Blood Venipuncture / Unknown 12/05/2024 11:30 AM EDT 12/05/2024 11:30 AM EDT Yamel Hurt NP LAB BLOOD ORDERABLES Final Res ult Performing Organization Address City/[facility]/ZIP Co de Phone Number [facility] [address] [phone] * ECG 12 lead (12/05/2024 11:03 AM EDT) SYSTOLIC BLOOD PRESSURE (MCT) 127 mmHg GE MUSE DIASTOLIC BLOOD PRESSURE (MCT) 77 mmHg GE MUSE VENTRICULAR RATE EKG/MIN 73 BPM GE MUSE ATRIAL RATE (MCT) 73 BPM GE MUSE [place] Interval 142 ms GE MUSE QRS-INTERVAL (MSEC) 66 ms GE MUSE QT Interval 394 ms GE MUSE QTC Interval 434 ms GE MUSE P [place] 38 degrees GE MUSE R AXIS (MCT) 67 degrees GE MUSE T Wave [place] 55 degrees GE MUSE [place] Diagnosis Normal sinus rhythm Low voltage QRS Borderline ECG No previous ECGs available Confirmed by Bhumika URBANO SUZANNE ([id number]) on 12/09/2024 10:52:48 AM GE MUSE 12/05/2024 11:0 3 AM EDT 12/09/2024 10:52 AM EDT us Yamel Hurt NP ECG ORDERABLES Final Result Performing Organization Address [facility]/ZIP Co de Phone Number GE MUSE * X-ray hand bilateral PA lateral and [...] DIAGNOSTIC IMAGING ORDER DEEPAK Final Result * Mammo Post Clip Placement Left (09/23/2024 10:59 AM EDT) Anatomical Region Laterality Modality Breast Left Mammography 09/23/2024 11:0 3 AM EDT Addenda Addendum by Lexy Wright MD on 10/05/2024 10:08 AM EDT Addendum: ACR BI-RADS 2, benign Recommendation: Return to screening mammography, due in August 2025 Impressions 09/24/2024 9:35 AM EDT FINAL IMPRESSION: ACR BI-RADS 2: Benign RECOMMENDATION: The patient may return to yearly screening mammography due in August 2025. Six month follow-up with ultrasound of the breast. This report will serve as the order for recommended imaging studies. The results and recommendations were phoned to the patient by Birgit Garcia RN on 09/24/2024 Narrative 09/24/2024 9:35 AM EDT PROCEDURE: Ultrasound guided breast core biopsy followed by a unilateral mammogram to document position of the biopsy marker. INDICATION: 0.8 cm macro lobular isoechoic mass in the far posterior left breast at the 2 to 3:00 position REPORT: Informed consent was obtained. Time-out was observed to verify patient's identity and correct location of the breast abnormality. The presence of the mass was confirmed with a 18 MHz linear transducer. A lateral approach was chosen. The breast was prepped and draped in the usual sterile fashion. 1% Lidocaine solution mixed with epinephrine was used for local anesthesia. A small skin incision was made with a scalpel. A 14gauge needle attached to an Elevation vacuum-assisted handheld device was introduced into the lesion under direct sonographic guidance. Position within the mass was documented with ultrasound. A total of 2 core samples were obtained following the above described procedure. The area of concern could no longer be seen sonographically. The samples were placed in formalin to be forwarded to the Pathology Department. A HydroMark tissue marker (MR compatible) was subsequently placed percutaneously. Follow up craniocaudal and true lateral projection mammographic images were obtained. The breast parenchymal tissue density is:There are scattered areas of fibroglandular density. The clip was shown to be in excellent position. Upon completion of the procedure, manual compression was applied to the biopsy site until all appreciable bleeding subsided. The incision was cleaned and closed with Steri-Strips and a dressing. An ice pack was applied. Post-biopsy instructions were reviewed with the patient. A written copy of these instructions was sent home with the patient as well. PATHOLOGY: Fibrocystic changes including mild usual ductal epithelial hyperplasia and stromal fibrosis. Rare microcalcifications associated with benign ductal epithelium. No identified atypical hyperplasia or malignancy. These results are concordant with the mammographic/sonographic evaluation. Procedure Note Lexy Wright MD - 09/24/2024 PROCEDURE: Ultrasound guided breast core biopsy followed by a unilateral mammogram to document position of the biopsy marker. INDICATION: 0.8 cm macro lobular isoechoic mass in the far posterior left breast at the 2 to 3:00 position REPORT: Informed consent was obtained. Time-out was observed to verify patient's identity and correct location of the breast abnormality. The presence of the mass was confirmed with a 18 MHz linear transducer. A lateral approach was chosen. The breast was prepped and draped in the usual sterile fashion. 1% Lidocaine solution mixed with epinephrine was used for local anesthesia. A small skin incision was made with a scalpel. A 14gauge needle attached to an Elevation vacuum-assisted handheld device was introduced into the lesion under direct sonographic guidance. Position within the mass was documented with ultrasound. A total of 2 core samples were obtained following the above described procedure. The area of concern could no longer be seen sonographically. The samples were placed in formalin to be forwarded to the Pathology Department. A HydroMark tissue marker (MR compatible) was subsequently placed percutaneously. Follow up craniocaudal and true lateral projection mammographic images were obtained. The breast parenchymal tissue density is:There are scattered areas of fibroglandular density. The clip was shown to be in excellent position. Upon completion of the procedure, manual compression was applied to the biopsy site until all appreciable bleeding subsided. The incision was cleaned and closed with Steri-Strips and a dressing. An ice pack was applied. Post-biopsy instructions were reviewed with the patient. A written copy of these instructions was sent home with the patient as well. PATHOLOGY: Fibrocystic changes including mild usual ductal epithelial hyperplasia and stromal fibrosis. Rare microcalcifications associated with benign ductal epithelium. No identified atypical hyperplasia or malignancy. These results are concordant with the mammographic/sonographic evaluation. IMPRESSION: FINAL IMPRESSION: ACR BI-RADS 2: Benign RECOMMENDATION: The patient may return to yearly screening mammography due in August 2025. Six month follow-up with ultrasound of the breast. This report will serve as the order for recommended imaging studies. The results and recommendations were phoned to the patient by Birgit Garcia RN on 09/24/2024 us Lexy Wright MD IMG MAMMOGRAPHY ORDERABLES Edit ed Result - Final * US guided breast biopsy left (09/23/2024 10:50 AM EDT) Anatomical Region Laterality Modality Breast Left Ultrasound 09/23/2024 11:0 3 AM EDT Addenda Addendum by Lexy Wright MD on 10/05/2024 10:08 AM EDT Addendum: ACR BI-RADS 2, benign Recommendation: Return to screening mammography, due in August 2025 Impressions 09/24/2024 9:35 AM EDT FINAL IMPRESSION: ACR BI-RADS 2: Benign RECOMMENDATION: The patient may return to yearly screening mammography due in August 2025. Six month follow-up with ultrasound of the breast. This report will serve as the order for recommended imaging studies. The results and recommendations were phoned to the patient by Birgit Garcia RN on 09/24/2024 Narrative 09/24/2024 9:35 AM EDT PROCEDURE: Ultrasound guided breast core biopsy followed by a unilateral mammogram to document position of the biopsy marker. INDICATION: 0.8 cm macro lobular isoechoic mass in the far posterior left breast at the 2 to 3:00 position REPORT: Informed consent was obtained. Time-out was observed to verify patient's identity and correct location of the breast abnormality. The presence of the mass was confirmed with a 18 MHz linear transducer. A lateral approach was chosen. The breast was prepped and draped in the usual sterile fashion. 1% Lidocaine solution mixed with epinephrine was used for local anesthesia. A small skin incision was made with a scalpel. A 14gauge needle attached to an Elevation vacuum-assisted handheld device was introduced into the lesion under direct sonographic guidance. Position within the mass was documented with ultrasound. A total of 2 core samples were obtained following the above described procedure. The area of concern could no longer be seen sonographically. The samples were placed in formalin to be forwarded to the Pathology Department. A HydroMark tissue marker (MR compatible) was subsequently placed percutaneously. Follow up craniocaudal and true lateral projection mammographic images were obtained. The breast parenchymal tissue density is:There are scattered areas of fibroglandular density. The clip was shown to be in excellent position. Upon completion of the procedure, manual compression was applied to the biopsy site until all appreciable bleeding subsided. The incision was cleaned and closed with Steri-Strips and a dressing. An ice pack was applied. Post-biopsy instructions were reviewed with the patient. A written copy of these instructions was sent home with the patient as well. PATHOLOGY: Fibrocystic changes including mild usual ductal epithelial hyperplasia and stromal fibrosis. Rare microcalcifications associated with benign ductal epithelium. No identified atypical hyperplasia or malignancy. These results are concordant with the mammographic/sonographic evaluation. Procedure Note Lexy Wright MD - 09/24/2024 PROCEDURE: Ultrasound guided breast core biopsy followed by a unilateral mammogram to document position of the biopsy marker. INDICATION: 0.8 cm macro lobular isoechoic mass in the far posterior left breast at the 2 to 3:00 position REPORT: Informed consent was obtained. Time-out was observed to verify patient's identity and correct location of the breast abnormality. The presence of the mass was confirmed with a 18 MHz linear transducer. A lateral approach was chosen. The breast was prepped and draped in the usual sterile fashion. 1% Lidocaine solution mixed with epinephrine was used for local anesthesia. A small skin incision was made with a scalpel. A 14gauge needle attached to an Elevation vacuum-assisted handheld device was introduced into the lesion under direct sonographic guidance. Position within the mass was documented with ultrasound. A total of 2 core samples were obtained following the above described procedure. The area of concern could no longer be seen sonographically. The samples were placed in formalin to be forwarded to the Pathology Department. A HydroMark tissue marker (MR compatible) was subsequently placed percutaneously. Follow up craniocaudal and true lateral projection mammographic images were obtained. The breast parenchymal tissue density is:There are scattered areas of fibroglandular density. The clip was shown to be in excellent position. Upon completion of the procedure, manual compression was applied to the biopsy site until all appreciable bleeding subsided. The incision was cleaned and closed with Steri-Strips and a dressing. An ice pack was applied. Post-biopsy instructions were reviewed with the patient. A written copy of these instructions was sent home with the patient as well. PATHOLOGY: Fibrocystic changes including mild usual ductal epithelial hyperplasia and stromal fibrosis. Rare microcalcifications associated with benign ductal epithelium. No identified atypical hyperplasia or malignancy. These results are concordant with the mammographic/sonographic evaluation. IMPRESSION: FINAL IMPRESSION: ACR BI-RADS 2: Benign RECOMMENDATION: The patient may return to yearly screening mammography due in August 2025. Six month follow-up with ultrasound of the breast. This report will serve as the order for recommended imaging studies. 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. [id number] AGE SEX SSN CLIENT REF # [facility] 58 1965 F [id number] REQUESTING Emily. [place] [address] LEXY WRIGHT DATE COLLECTED DATE RECEIVED DATE REPORTED 09/23/2024 09/23/2024 09/24/2024 DIAGNOSIS: BREAST, BIOPSY, NEEDLE CORES, LEFT 2:00 MASS: Fibrocystic changes including mild usual type ductal epithelial hyperplasia and stromal fibrosis Rare microcalcification associated with benign ductal epithelium No identified atypical hyperplasia or malignancy CLINICAL HISTORY: Left breast; left 2:00 mass; questionable cancer SPECIMENS RECEIVED: BREAST, BIOPSY, NEEDLE CORES, LEFT 2:00 MASS MICROSCOPIC DESCRIPTION: Tissue blocks are prepared and slides are examined microscopically on all specimens. See diagnosis for details. Professional interpretation rendered by Sharda Gracia M.D. at [facility], [address] [place] [address]. GROSS DESCRIPTION: Labeled left 2-3:00 consists of 3 yellow-kaiser cores ranging in length from 0.7 to 2.1 cm, and ranging in diameter from 0.3 to 0.5 cm. Specimens are submitted entirely in 1 block. Cold ischemic time unspecified. Estimated time in formalin greater than 6 hours. BKO REVIEWED, DIAGNOSED AND ELECTRONICALLY SIGNED BY: Sharda Gracia M.D. CPT CODES: 44408 Tissue LEFT BREAST STRUCTURE / Unknown 09/23/2024 10:47 AM EDT Lexy Wright MD PATHOLOGY/CYTOLOGY ORDERABLES F inal Result [facility] [address] [place] [address] * (ABNORMAL) MM digital mammo diagnostic with jj left (09/10/2024 11:18 AM EDT) Anatomical Region Laterality Modality Breast Left Mammography 09/10/2024 12:3 2 PM EDT Impressions 09/10/2024 12:51 PM EDT FINAL IMPRESSION: Cluster of cysts corresponds to the area of concern on the right. An oval slightly irregularly marginated mass measuring 7 mm corresponds to the mammographic area of concern on the left. Bi-RADS: ACR BI-RADS 4: Suspicious RECOMMENDATIONS: [Left Ultrasound-guided biopsy This report will serve as the order for the recommended imaging studies/procedures. At our facility, a kaltag marker is positioned over a visible skin lesion and a linear marker is placed over a scar. The results and recommendations were discussed with the patient on the day of her appointment. In addition, a written report in lay terms, including density notification, was given to the patient. Patient information was entered into a reminder system with a target due date for the next mammogram. Narrative 09/10/2024 12:51 PM EDT PROCEDURE: Bilateral diagnostic mammogram with Digital Breast Tomosynthesis (DBT) with bilateral focused ultrasound. REASON FOR EXAM: 10 mm lobulated mass at the right 10:00 position and oval focal asymmetry at the posterior left 3:00 position on baseline screening mammography on 08/13/2024 FAMILY HISTORY: Weak family history of breast cancer COMPARISON STUDY: [facility] 08/13/2024 FINDINGS: Craniocaudal and mediolateral oblique images of the left breast were obtained in 2D and DBT modes. Synthesized views were reconstructed from DBT data. Breast density:There are scattered areas of fibroglandular density. With the additional imaging there is a reproducible oval focal asymmetry in the posterior aspect of the left breast at approximately the 2:00 position measuring 0.8 mm. This is macro lobular but not more dense than the right breast parenchymal tissue. Ultrasound reveals a far posterior oval mass which is isoechoic and has slightly irregular margination. It is parallel to the skin and chest wall, but due to its irregular margination ultrasound-guided biopsy is recommended. No adenopathy is seen in the axilla. This examination was reviewed with the benefit of computer aided detection (CAD). us Krissy Boss MD IMG MAMMOGRAPHY ORDERABLES Final Result from Last 3 Months or Most Recently Relevant to [place] [address] 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
--- OUTSIDE RECORDS SUMMARY | 2024-12-17 10:34 | XMS_ITS | Encounter Summary ---
Author Organization [facility] Address [address] [place] [address] Care Team Providers Care Salesperson Wigs Name Role Phone Krystyna Elliott [facility] Primary Care Provider Nick Rasmussen PA-C Unavailable [phone] Lena Aguilera APRN Primary Care Provider [phone] Nimisha Nuñez PA-C Unavailable [phone] Encounter Details Date Type Department Care Team (Late st Contact Info) Description 12/17/2019 Transcribed Document [facility] [address] [place] [address] Provider, Audra Hargrove MD Social History Tobacco Use Types Packs/Day Years Used Date Smoking Tobacco: Never Assessed Comments Unknown Sex and Gender Information Value Date Recorded Sex Assigned at Not on file Legal Sex Female 6:57 PM CDT Gender Identity Not on file Sexual Orientation Not on file documented as of this encounter Miscellaneous Notes * Cerner Conversion Note - [facility] Beena ProviderMD - 12/17/2019 12:37 PM EDT [facility] [address] [place] [address] ANISA KATZ :1965 Visit Time:12/17/2019 What to do next Your Diagnosis Unilateral primary osteoarthritis, right knee, Unilateral primary osteoarthritis, right knee Instructions From Your Care Team You have a prescription for [place] 7.5mg 1 tablet every 6 hours as needed for pain, your next dose is due after 4:30pm refer to discharge orders/orthopedic procedures form for detailed instructions. Follow-Up Appointments Follow Up with DRAGAN FLAHERTY MD-ORT When 12/30/2019 02:15 PM EDT Comments Appointment has been made Where: [address] [place] [address]- Medications What How Much When Instructions Next Dose aspirin 81 Milligram(s) Oral Every Day hydroCHLOROthiazide (hydroCHLOROthiazide 25 mg oral tablet) 1 Tablet(s) Oral Every Day levothyroxine (levothyroxine 50 mcg (0.05 mg) oral tablet) 1 Tablet(s) Oral Every Day Take your medications faithfully. Do NOT skip medication. Do NOT stop taking medications without the direction of a physician. Carry a list of your medications with you at all times, and take this medication list with you to your first follow up visit. Report any side effects. Avoid herbal remedies unless discussed with your physician. As part of your treatment plan, your physician may have prescribed a limited course of a controlled substance. This medication may be given to help people with moderate or severe pain or for other medical conditions, but there are risks involved with treatment. Common side effects may include nausea, constipation, drowsiness, sweating, itching, dry mouth, and rash. More serious side effects may include cognitive and motor impairment, like problems with thinking, concentrating, alertness, and movement (e.g. slowed reflexes), and driving and operating heavy machinery can be dangerous. It is important for you to talk to your physician if you have these side effects or questions. These controlled substances can produce physical dependence and be habit-forming if taken for an extended period of time, which means that the body has gotten used to them and may experience withdrawal symptoms if they are abruptly stopped. Withdrawal symptoms can include runny nose, sweating, goose bumps, diarrhea, abdominal cramping, rapid heartbeat, difficulty sleeping, and nervousness. Please dispose of unused and medications per pharmacy guidance. Education Materials Knee Arthroscopy, Care After This sheet gives you information about how to care for yourself after your procedure. Your health care provider may also give you more specific instructions. If you have problems or questions, contact your health care provider. What can I expect after the procedure? After the procedure, it is common to have: ??? Soreness. ??? Swelling. ??? Pain that can be relieved by taking pain medicine. Follow these instructions at home: Incision care ??? Follow instructions from your health care provider about how to take care of your incisions. Make sure you: ? Wash your hands with soap and water before you change your bandage (dressing). If soap and water are not available, use hand grocery clerk marking. ? Change your dressing as told by your health care provider. ? Leave stitches (sutures), maurizio, skin glue, or adhesive strips in place. These skin closures may need to stay in place for 2 weeks or longer. If adhesive strip edges start to loosen and curl up, you may trim the loose edges. Do not remove adhesive strips completely unless your health care provider tells you to do that. ??? Check your incision areas every day for signs of infection. Check for: ? Redness. ? More swelling or pain. ? Fluid or blood. ? Warmth. ? Pus or a bad smell. Bathing ??? Do not take baths, swim, or use a hot tub until your health care provider approves. Ask your health care provider if you may take showers. You may only be allowed to take sponge baths. Activity ??? Do not use your knee to support your body weight until your health care provider says that you can. Follow weight-bearing restrictions as told. Use crutches or other devices to help you move around (assistive devices) as directed. ??? Ask your health care provider what activities are safe for you during recovery, and what activities you need to avoid. ??? If physical therapy was prescribed, do exercises as directed. Doing exercises may help improve knee movement and flexibility (range of motion). ??? Do not lift anything that is heavier than 10 lb (4.5 kg), or the limit that you are told, until your health care provider says that it is safe. Driving ??? Do not drive until your health care provider approves. You may be able to drive after 1???3 weeks. ??? Do not drive or use heavy machinery while taking prescription pain medicine. Managing pain, stiffness, and swelling ??? If directed, put ice on the injured area: ? Put ice in a plastic bag or use the icing device (cold therapy unit) that you were given. Follow instructions from your health care provider about how to use the icing device. ? Place a towel between your skin and the bag or between your skin and the icing device. ? Leave the ice on for 20 minutes, 2???3 times a day. ??? Move your toes often to avoid stiffness and to lessen swelling. ??? Raise (elevate) the injured area above the level of your heart while you are sitting or lying down. If you are taking blood thinners: ??? Before you take any medicines that contain aspirin or NSAIDs, talk with your health care provider. These medicines increase your risk for dangerous bleeding. ??? Take your medicine exactly as told, at the same time every day. ??? Avoid activities that could cause injury or bruising, and follow instructions about how to prevent falls. ??? Wear a medical alert bracelet or carry a card that lists what medicines you take. General instructions ??? Take iagv-jam-fhlifzk and prescription medicines only as told by your health care provider. ??? If you are taking prescription pain medicine, take actions to prevent or treat constipation. Your health care provider may recommend that you: ? Drink enough fluid to keep your urine pale yellow. ? Eat foods that are high in fiber, such as fresh fruits and vegetables, whole grains, and beans. ? Limit foods that are high in fat and processed sugars, such as fried or sweet foods. ? Take an jqag-uyg-tkvuoth or prescription medicines for constipation. ??? Do not use any products that contain nicotine or tobacco, such as cigarettes and e-cigarettes. These can delay incision or bone healing. If you need help quitting, ask your health care provider. ??? Wear compression stockings as told by your health care provider. These stockings help to prevent blood clots and reduce swelling in your legs. ??? Keep all follow-up visits as told by your health care provider. This is important. Contact a health care provider if you: ??? Have a fever. ??? Have severe pain. ??? Have redness around an incision. ??? Have more swelling. ??? Have fluid or blood coming from an incision. ??? Notice that an incision feels warm to the touch. ??? Notice pus or a bad smell coming from an incision. ??? Notice that an incision opens up. ??? Develop a rash. Get help right away if you: ??? Have difficulty breathing. ??? Have shortness of breath. ??? Have chest pain. ??? Develop pain in your lower leg or at the back of your knee. ??? Have numbness or tingling in your lower leg or your foot. Summary ??? Raise (elevate) the injured area above the level of your heart while you are sitting or lying down. ??? To help relieve pain and swelling, put ice on your leg for 20 minutes at a time, 2???3 times a day. ??? If you were prescribed a blood thinner, avoid activities that could cause injury or bruising, and follow instructions about how to prevent falls. ??? If physical therapy was prescribed, do exercises as directed. Doing exercises may help improve range of motion. This information is not intended to replace advice given to you by your health care provider. Make sure you discuss any questions you have with your health care provider. Document Released: 01/04/2006 Document Revised: 04/30/2018 Document Reviewed: 04/30/2018 [employer] Patient Education ?? 2020 [employer]. acetaminophen and hydrocodone (a SEET a MIN oh fen and imer COLLADO done) Hycet, Lorcet, [place], Verdrocet, Vicodin, Xodol, Zamicet What is the most important information I should know about acetaminophen and hydrocodone? MISUSE OF OPIOID MEDICINE CAN CAUSE ADDICTION, OVERDOSE, OR . Keep the medication in a place where others cannot get to it. Taking opioid medicine during may cause life-threatening withdrawal symptoms in the . Fatal side effects can occur if you use opioid medicine with alcohol, or with other drugs that cause drowsiness or slow your breathing. Stop taking this medicine and call your doctor right away if you have skin redness or a rash that spreads and causes blistering and peeling. What is acetaminophen and hydrocodone? Acetaminophen and hydrocodone is a combination medicine used to relieve moderate to severe pain. Acetaminophen and hydrocodone may also be used for purposes not listed in this medication guide. What should I discuss with my healthcare provider before taking acetaminophen and hydrocodone? You should not use this medicine if you are allergic to acetaminophen or hydrocodone, or if you have: ?? severe asthma or breathing problems; or ?? a blockage in your stomach or intestines. Tell your doctor if you have ever had: ?? breathing problems, sleep apnea; ?? liver disease; ?? a drug or alcohol addiction; ?? kidney disease; ?? a head injury or seizures; ?? urination problems; or ?? problems with your thyroid, pancreas, or gallbladder. If you use opioid medicine while you are , your baby could become dependent on the drug. This can cause life-threatening withdrawal symptoms in the baby after it is born. Babies born dependent on opioids may need medical treatment for several weeks. Do not breastfeed. This medicine can pass into breast milk and cause drowsiness, breathing problems, or in a nursing baby. How should I take acetaminophen and hydrocodone? Follow all directions on your prescription label. Never take this medicine in larger amounts, or for longer than prescribed. An overdose can damage your liver or cause . Tell your doctor if you feel an increased urge to use more of this medicine. Never share this medicine with another person, especially someone with a history of drug abuse or addiction. MISUSE CAN CAUSE ADDICTION, OVERDOSE, OR . Keep the medicine in a place where others cannot get to it. Selling or giving away acetaminophen and hydrocodone is against the law. Measure liquid medicine carefully. Use the dosing syringe provided, or use a medicine dose-measuring device (not a kitchen spoon). If you need surgery or medical tests, tell the doctor ahead of time that you are using this medicine. You should not stop using this medicine suddenly. Follow your doctor's instructions about tapering your dose. Store at room temperature away from moisture and heat. Keep track of your medicine. You should be aware if anyone is using it improperly or without a prescription. Do not keep leftover opioid medication. Just one dose can cause in someone using this medicine accidentally or improperly. Ask your pharmacist where to locate a drug take-back disposal program. If there is no take-back program, flush the unused medicine down the toilet. What happens if I miss a dose? Since this medicine is used for pain, you are not likely to miss a dose. Skip any missed dose if it is almost time for your next dose. Do not use two doses at one time. What happens if I overdose? Seek emergency medical attention or call the Poison Help line at . An overdose of acetaminophen and hydrocodone can be fatal. The first signs of an acetaminophen overdose include loss of appetite, nausea, vomiting, stomach pain, sweating, and confusion or weakness. Later symptoms may include pain in your upper stomach, dark urine, and yellowing of your skin or the whites of your eyes. Overdose can also cause severe muscle weakness, pinpoint pupils, very slow breathing, extreme drowsiness, or coma. What should I avoid while taking acetaminophen and hydrocodone? Avoid driving or operating machinery until you know how this medicine will affect you. Dizziness or drowsiness can cause falls, accidents, or severe injuries. Do not drink alcohol. Dangerous side effects or could occur. Ask a doctor or pharmacist before using any other medicine that may contain acetaminophen (sometimes abbreviated as APAP). Taking certain medications together can lead to a fatal overdose. What are the possible side effects of acetaminophen and hydrocodone? Get emergency medical help if you have signs of an allergic reaction: hives; difficulty breathing; swelling of your face, lips, tongue, or throat. Opioid medicine can slow or stop your breathing, and may occur. A person caring for you should seek emergency medical attention if you have slow breathing with long pauses, blue colored lips, or if you are hard to wake up. In rare cases, acetaminophen may cause a severe skin reaction that can be fatal. This could occur even if you have taken acetaminophen in the past and had no reaction. Stop taking this medicine and call your doctor right away if you have skin redness or a rash that spreads and causes blistering and peeling. Call your doctor at once if you have: ?? noisy breathing, sighing, shallow breathing, breathing that stops during sleep; ?? a light-headed feeling, like you might pass out; ?? liver problems--nausea, upper stomach pain, tiredness, loss of appetite, dark urine, mague-colored stools, jaundice (yellowing of the skin or eyes); or ?? low cortisol levels-- nausea, vomiting, loss of appetite, dizziness, worsening tiredness or weakness. Seek medical attention right away if you have symptoms of serotonin syndrome, such as: agitation, hallucinations, fever, sweating, shivering, fast heart rate, muscle stiffness, twitching, loss of coordination, nausea, vomiting, or diarrhea. Serious side effects may be more likely in older adults and those who are overweight, malnourished, or debilitated. Long-term use of opioid medication may affect fertility (ability to have children) in men or women. It is not known whether opioid effects on fertility are permanent. Common side effects include: ?? dizziness, drowsiness, feeling tired; ?? nausea, vomiting, stomach pain; ?? constipation; or ?? headache. This is not a complete list of side effects and others may occur. Call your doctor for medical advice about side effects. You may report side effects to FDA at 5-369-KUU-5232. What other drugs will affect acetaminophen and hydrocodone? You may have breathing problems or withdrawal symptoms if you start or stop taking certain other medicines. Tell your doctor if you also use an antibiotic, antifungal medication, heart or blood pressure medication, seizure medication, or medicine to treat HIV or hepatitis C. Opioid medication can interact with many other drugs and cause dangerous side effects or . Be sure your doctor knows if you also use: ?? cold or allergy medicines, bronchodilator asthma/COPD medication, or a diuretic ('water pill'); ?? medicines for motion sickness, irritable bowel syndrome, or overactive bladder; ?? other narcotic medications--opioid pain medicine or prescription cough medicine; ?? a sedative like Valium--diazepam, alprazolam, lorazepam, Xanax, Klonopin, Versed, and others; ?? drugs that make you sleepy or slow your breathing--a sleeping pill, muscle relaxer, medicine to treat mood disorders or mental illness; ?? drugs that affect serotonin levels in your body--a stimulant, or medicine for depression, Parkinson's disease, migraine headaches, serious infections, or nausea and vomiting. This list is not complete. Other drugs may affect acetaminophen and hydrocodone, including prescription and uzil-onx-sshzjhl medicines, vitamins, and herbal products. Not all possible interactions are listed here. Where can I get more information? Your doctor or pharmacist can provide more information about acetaminophen and hydrocodone. Remember, keep this and all other medicines out of the reach of children, never share your medicines with others, and use this medication only for the indication prescribed. Every effort has been made to ensure that the information provided by [employer] is accurate, up-to-date, and complete, but no guarantee is made to that effect. Drug information contained herein may be time sensitive. [employer] information has been compiled for use by healthcare practitioners and consumers in the [place] and therefore [employer] does not warrant that uses outside of the [place] are appropriate, unless specifically indicated otherwise. [employer] drug information does not endorse drugs, diagnose patients or recommend therapy. [employer] drug information is an informational resource designed to assist licensed healthcare practitioners in caring for their patients and/or to serve consumers viewing this service as a supplement to, and not a substitute for, the expertise, skill, knowledge and judgment of healthcare practitioners. The absence of a warning for a given drug or drug combination in no way should be construed to indicate that the drug or drug combination is safe, effective or appropriate for any given patient. [employer] does not assume any responsibility for any aspect of healthcare administered with the aid of information [employer] provides. The information contained herein is not intended to cover all possible uses, directions, precautions, warnings, drug interactions, allergic reactions, or adverse effects. If you have questions about the drugs you are taking, check with your doctor, nurse or pharmacist. Copyright 1117-2046 [employer]. Version: 16.01. Revision Date: 07/22/2019. acetaminophen and hydrocodone (a SEET a MIN oh fen and imer droe KOE done) Hycet, Lorcet, [place], Verdrocet, Vicodin, Xodol, Zamicet What is the most important information I should know about acetaminophen and hydrocodone? MISUSE OF OPIOID MEDICINE CAN CAUSE ADDICTION, OVERDOSE, OR . Keep the medication in a place where others cannot get to it. Taking opioid medicine during may cause life-threatening withdrawal symptoms in the . Fatal side effects can occur if you use opioid medicine with alcohol, or with other drugs that cause drowsiness or slow your breathing. Stop taking this medicine and call your doctor right away if you have skin redness or a rash that spreads and causes blistering and peeling. What is acetaminophen and hydrocodone? Acetaminophen and hydrocodone is a combination medicine used to relieve moderate to severe pain. Acetaminophen and hydrocodone may also be used for purposes not listed in this medication guide. What should I discuss with my healthcare provider before taking acetaminophen and hydrocodone? You should not use this medicine if you are allergic to acetaminophen or hydrocodone, or if you have: ?? severe asthma or breathing problems; or ?? a blockage in your stomach or intestines. Tell your doctor if you have ever had: ?? breathing problems, sleep apnea; ?? liver disease; ?? a drug or alcohol addiction; ?? kidney disease; ?? a head injury or seizures; ?? urination problems; or ?? problems with your thyroid, pancreas, or gallbladder. If you use opioid medicine while you are , your baby could become dependent on the drug. This can cause life-threatening withdrawal symptoms in the baby after it is born. Babies born dependent on opioids may need medical treatment for several weeks. Do not breastfeed. This medicine can pass into breast milk and cause drowsiness, breathing problems, or in a nursing baby. How should I take acetaminophen and hydrocodone? Follow all directions on your prescription label. Never take this medicine in larger amounts, or for longer than prescribed. An overdose can damage your liver or cause . Tell your doctor if you feel an increased urge to use more of this medicine. Never share this medicine with another person, especially someone with a history of drug abuse or addiction. MISUSE CAN CAUSE ADDICTION, OVERDOSE, OR . Keep the medicine in a place where others cannot get to it. Selling or giving away acetaminophen and hydrocodone is against the law. Measure liquid medicine carefully. Use the dosing syringe provided, or use a medicine dose-measuring device (not a kitchen spoon). If you need surgery or medical tests, tell the doctor ahead of time that you are using this medicine. You should not stop using this medicine suddenly. Follow your doctor's instructions about tapering your dose. Store at room temperature away from moisture and heat. Keep track of your medicine. You should be aware if anyone is using it improperly or without a prescription. Do not keep leftover opioid medication. Just one dose can cause in someone using this medicine accidentally or improperly. Ask your pharmacist where to locate a drug take-back disposal program. If there is no take-back program, flush the unused medicine down the toilet. What happens if I miss a dose? Since this medicine is used for pain, you are not likely to miss a dose. Skip any missed dose if it is almost time for your next dose. Do not use two doses at one time. What happens if I overdose? Seek emergency medical attention or call the Poison Help line at . An overdose of acetaminophen and hydrocodone can be fatal. The first signs of an acetaminophen overdose include loss of appetite, nausea, vomiting, stomach pain, sweating, and confusion or weakness. Later symptoms may include pain in your upper stomach, dark urine, and yellowing of your skin or the whites of your eyes. Overdose can also cause severe muscle weakness, pinpoint pupils, very slow breathing, extreme drowsiness, or coma. What should I avoid while taking acetaminophen and hydrocodone? Avoid driving or operating machinery until you know how this medicine will affect you. Dizziness or drowsiness can cause falls, accidents, or severe injuries. Do not drink alcohol. Dangerous side effects or could occur. Ask a doctor or pharmacist before using any other medicine that may contain acetaminophen (sometimes abbreviated as APAP). Taking certain medications together can lead to a fatal overdose. What are the possible side effects of acetaminophen and hydrocodone? Get emergency medical help if you have signs of an allergic reaction: hives; difficulty breathing; swelling of your face, lips, tongue, or throat. Opioid medicine can slow or stop your breathing, and may occur. A person caring for you should seek emergency medical attention if you have slow breathing with long pauses, blue colored lips, or if you are hard to wake up. In rare cases, acetaminophen may cause a severe skin reaction that can be fatal. This could occur even if you have taken acetaminophen in the past and had no reaction. Stop taking this medicine and call your doctor right away if you have skin redness or a rash that spreads and causes blistering and peeling. Call your doctor at once if you have: ?? noisy breathing, sighing, shallow breathing, breathing that stops during sleep; ?? a light-headed feeling, like you might pass out; ?? liver problems--nausea, upper stomach pain, tiredness, loss of appetite, dark urine, mague-colored stools, jaundice (yellowing of the skin or eyes); or ?? low cortisol levels-- nausea, vomiting, loss of appetite, dizziness, worsening tiredness or weakness. Seek medical attention right away if you have symptoms of serotonin syndrome, such as: agitation, hallucinations, fever, sweating, shivering, fast heart rate, muscle stiffness, twitching, loss of coordination, nausea, vomiting, or diarrhea. Serious side effects may be more likely in older adults and those who are overweight, malnourished, or debilitated. Long-term use of opioid medication may affect fertility (ability to have children) in men or women. It is not known whether opioid effects on fertility are permanent. Common side effects include: ?? dizziness, drowsiness, feeling tired; ?? nausea, vomiting, stomach pain; ?? constipation; or ?? headache. This is not a complete list of side effects and others may occur. Call your doctor for medical advice about side effects. You may report side effects to FDA at 1-450-PJM-1711. What other drugs will affect acetaminophen and hydrocodone? You may have breathing problems or withdrawal symptoms if you start or stop taking certain other medicines. Tell your doctor if you also use an antibiotic, antifungal medication, heart or blood pressure medication, seizure medication, or medicine to treat HIV or hepatitis C. Opioid medication can interact with many other drugs and cause dangerous side effects or . Be sure your doctor knows if you also use: ?? cold or allergy medicines, bronchodilator asthma/COPD medication, or a diuretic ('water pill'); ?? medicines for motion sickness, irritable bowel syndrome, or overactive bladder; ?? other narcotic medications--opioid pain medicine or prescription cough medicine; ?? a sedative like Valium--diazepam, alprazolam, lorazepam, Xanax, Klonopin, Versed, and others; ?? drugs that make you sleepy or slow your breathing--a sleeping pill, muscle relaxer, medicine to treat mood disorders or mental illness; ?? drugs that affect serotonin levels in your body--a stimulant, or medicine for depression, Parkinson's disease, migraine headaches, serious infections, or nausea and vomiting. This list is not complete. Other drugs may affect acetaminophen and hydrocodone, including prescription and [id number] medicines, vitamins, and herbal products. Not all possible interactions are listed here. Where can I get more information? Your doctor or pharmacist can provide more information about acetaminophen and hydrocodone. Remember, keep this and all other medicines out of the reach of children, never share your medicines with others, and use this medication only for the indication prescribed. Every effort has been made to ensure that the information provided by [employer] ('[employer]') is accurate, up-to-date, and complete, but no guarantee is made to that effect. Drug information contained herein may be time sensitive. [employer] information has been compiled for use by healthcare practitioners and consumers in the [place] and therefore [employer] does not warrant that uses outside of the [place] are appropriate, unless specifically indicated otherwise. [employer]'s drug information does not endorse drugs, diagnose patients or recommend therapy. [employer] drug information is an informational resource designed to assist licensed healthcare practitioners in caring for their patients and/or to serve consumers viewing this service as a supplement to, and not a substitute for, the expertise, skill, knowledge and judgment of healthcare practitioners. The absence of a warning for a given drug or drug combination in no way should be construed to indicate that the drug or drug combination is safe, effective or appropriate for any given patient. [employer] does not assume any responsibility for any aspect of healthcare administered with the aid of information [employer] provides. The information contained herein is not intended to cover all possible uses, directions, precautions, warnings, drug interactions, allergic reactions, or adverse effects. If you have questions about the drugs you are taking, check with your doctor, nurse or pharmacist. Copyright 4344-5804 [employer]. Version: 16.01. Revision Date: 07/22/2019. Emergency Awareness and Preventative Care STROKE is an EMERGENCY Every Minute Counts Act FAST and Check for these signs: FACE Does the face look uneven? ARM Does one arm drift down? SPEECH Does their speech sound strange? TIME Call at any sign of stroke Stroke Risk Factors Atrial Fibrillation (irregular heartbeat) Diabetes Family history of stroke Heart Disease Heavy alcohol use High Blood Pressure High Cholesterol Physical inactivity and obesity Smoking Cigarette Smoking The facts are clear, cigarette smoking will shorten your life. Smoking can cause many illnesses along the way. As a healthcare provider, we recommend that you stop smoking. Assistance with quitting is available by contacting 5-328-BYQA-NOW. This is a free resource providing counseling, support, and referral. Or you may contact your personal physician. National Suicide Prevention Lifeline: The National Suicide Prevention Lifeline is a national network of local crisis centers that provides free and confidential emotional support to people in suicidal crisis or emotional distress 24 hours a day, 7 days a week. Don't Wait! Stop a Heart Attack Before it Starts What is a heart attack? A heart attack is damage or to a part of the heart from severely decreased or lack of blood flow to the heart. Over time, arteries can become narrow from the buildup of fat and cholesterol, which is called plaque. The plaque can rupture causing a blood clot to form. When the blood clot forms, the artery can become severely narrowed or completely blocked, causing a heart attack. Heart attack is the leading cause of in the [place]. 85% of muscle damage occurs within the first 2 hours. Delay in the recognition of heart attack symptoms increases the chances of . Know the early symptoms of a heart attack: Nausea Feeling of fullness in chest Jaw Pain Pain that travels down one or both arms Fatigue/being tired Anxiety Back Pain Chest pressure, squeezing, or discomfort Shortness of breath Sweating, or a cold sweat Feeling of impending doom There are unusual signs of a heart attack, too! Women, the elderly, and diabetics may present with atypical symptoms: Fainting/dizziness Weakness Confusion Risk Factors for a Heart Attack Some heart disease risk factors, such as age and family history, cannot be changed. Others, like smoking and lack of exercise, can be changed. Smoking High Cholesterol High Blood Pressure Family History Obesity Age Gender (Males are at higher risk) Lack of Exercise Diabetes Diet Stress Excessive Alcohol Intake If you or someone you know is experiencing the signs and symptoms of a heart attack, DON???T DELAY. Call immediately and seek help. If someone collapses, perform CPR! Do not attempt to drive if you are having symptoms of heart attack. Hands-Only CPR Why Hands-Only CPR? Hands-Only CPR has been shown to be as effective as conventional CPR for cardiac arrests that occur outside of a hospital. Survival depends on immediately receiving CPR from someone nearby. How do you perform Hands-Only CPR? There are two easy steps: Call if you see a teen or adult collapse Push hard and fast in the center of the chest at a beat of 100 beats per minute. Save a life! 4 WAYS TO GET AHEAD OF SEPSIS SEPSIS is a MEDICAL EMERGENCY. Time matters! Infections put you and your family at risk for a life-threatening condition called sepsis. Sepsis is the body's extreme response to an infection. It is life-threatening, and without timely treatment, sepsis can rapidly lead to tissue damage, organ failure, and . Sepsis happens when an infection you already have-in your skin, lungs, urinary tract or somewhere else-triggers a chain reaction throughout your body. 1 PREVENT INFECTIONS Take good care of chronic conditions. Talk to your doctor about getting the recommended vaccines. 2 PRACTICE GOOD HYGIENE Wash your hands frequently. Keep cuts or open sores clean and covered until they are healed. 3 KNOW THE SYMPTOMS Confusion or disorientation Shortness of breath High heart rate Fever, shivering, or feeling very cold Extreme pain or discomfort Clammy or sweaty skin 4 ACT FAST Get medical care IMMEDIATELY if you suspect sepsis or if you have an infection that is not getting better or is getting worse. To learn more about sepsis and how to prevent infections, visit www.cdc.gov/sepsis. Test Results Laboratory or Other Results This Visit (last charted value for your 12/17/2019 visit) Hematology 12/03/2019 8:43 AM WBC: 5.5 K/uL -- Normal range between ( 3.9 and 10.0 ) RBC: 4.94 Million/uL -- Normal range between ( 3.93 and 5.22 ) Hct: 41.0 % -- Normal range between ( 34.1 and 44.9 ) Hgb: 13.5 Gram/dL -- Normal range between ( 11.2 and 15.7 ) Platelet Count: 208 K/uL -- Normal range between ( 163 and 369 ) MCH: 27.3 pg -- Normal range between ( 25.6 and 32.2 ) MCHC: 32.9 Gram/dL -- Normal range between ( 32.3 and 36.5 ) MCV: 83.0 fL -- Normal range between ( 79.0 and 94.8 ) Slide Review: No Eos %: 4.6 % -- Normal range between ( 1.0 and 7.0 ) [place] #: 0.41 K/uL -- Normal range between ( 0.24 and 0.82 ) Eos #: 0.25 K/uL -- Normal range between ( 0.04 and 0.54 ) [place] %: 7.5 % -- Normal range between ( 4.7 and 12.5 ) Baso %: 0.7 % -- Normal range between ( 0.0 and 1.0 ) Baso #: 0.04 K/uL -- Normal range between ( 0.01 and 0.08 ) RDW: 12.4 % -- Normal range between ( 11.6 and 14.4 ) Neut %: 67.0 % -- Normal range between ( 34.0 and 71.0 ) Neut #: 3.66 K/uL -- Normal range between ( 1.56 and 6.13 ) Lymph %: 19.8 % -- Normal range between ( 19.3 and 53.0 ) Lymph #: 1.08 K/uL -- Normal range between ( 1.18 and 3.74 ) MPV: 10.5 fL -- Normal range between ( 9.4 and 12.4 ) IG#: 0 x10(3)/uL IG%: 0 % -- Normal range between ( 0 and 1 ) Microbiology 12/15/2019 11:00 AM Novel Coronavirus 2019: Negative General Chemistry 12/17/2019 8:28 AM Potassium Level: 3.6 mmol/L -- Normal range between ( 3.5 and 5.1 ) 12/03/2019 8:43 AM Creatinine Level: 0.94 mg/dL -- Normal range between ( 0.55 and 1.02 ) Sodium Level: 137 mmol/L -- Normal range between ( 136 and 146 ) Chloride Level: 103 mmol/L -- Normal range between ( 102 and 112 ) Carbon Dioxide Level: 27 mmol/L -- Normal range between ( 21 and 32 ) Anion Gap: 10 -- Normal range between ( 9 and 20 ) Bilirubin Total: 0.3 mg/dL -- Normal range between ( 0.2 and 1.3 ) A/G Ratio: 1.0 -- Normal range between ( 1.1 and 2.5 ) ALT: 37 Units/Liter -- Normal range between ( 12 and 78 ) AST: 22 Units/Liter -- Normal range between ( 5 and 37 ) Globulin: 3.9 Gram/dL -- Normal range between ( 1.5 and 4.5 ) Alk Phos: 102 Units/Liter -- Normal range between ( 27 and 136 ) Bun/Creatinine: 17.0 -- Normal range between ( 8.0 and 20.0 ) Calcium Level: 9.3 mg/dL -- Normal range between ( 8.5 and 10.1 ) eGFR : >60 mL/min/1.73m2 eGFR NonAfrican: >60 mL/min/1.73m2 Glucose Level: 124 mg/dL -- Normal range between ( 74 and 106 ) Blood Urea Nitrogen: 16 mg/dL -- Normal range between ( 7 and 22 ) Protein Total: 7.7 Gram/dL -- Normal range between ( 6.4 and 8.2 ) Albumin Level: 3.8 Gram/dL -- Normal range between ( 3.4 and 5.0 ) Diagnostic Radiology 12/03/2019 9:18 AM CR Chest 2 Vws: CR Chest 2 Vws Patient Name:ANISA KATZ I have received this information and was given the opportunity to ask questions. Patient/Net Trainer Name: Patient/Net Trainer Signature: Relationship to Patient: Clinician/Hospital Net Trainer Signature: Date: Electronically signed by Ranjan, Audra Conversion Hand Booked Folder And Stitcher Frederic at 11/21/2022 11:16 AM CDT documented in this encounter Plan of Treatment Upcoming Encounters Date Type Department Care Team (Late st Contact Info) Description 12/18/2024 9:00 AM EDT Procedure Visit [facility] - [place] [address] [place] [address] 12/23/2024 2:15 PM EDT Office Visit [facility] - [address] [place] [id number] Nick Rasmussen PA-C [address] [place] [address] 02/11/2025 10:00 AM EDT Office Visit [facility] - [address] [place] [id number] Nick Rasmussen PA-C [address] [place] [id number] 08/19/2025 9:30 AM EST Appointment [facility] [address] [place] [address] documented as of this encounter Visit Diagnoses Not on filedocumented in this encounter Care Teams Salesperson Wigs Relationship Specialty Start Date End Date [facility] [place] [address] PCP - General 09/19/22 10/27/23 Lena Aguilera, CAMPAIGN ASSOCIATE [address] [place] [phone] PCP - General Family Medicine 10/28/23 Nick Rasmussen PA-C [address] [place] [address] Orthopedic Surgery 08/07/23 Nimisha Nuñez PA-C [address] [place] [address] Physician Market Survey Representative Orthopedic Surgery 02/05/24 documented as of this encounter
--- OUTSIDE RECORDS SUMMARY | 2024-12-17 10:34 | XMS_ITS | Clinical Summary ---
Author Organization [facility] Address [address] [place] [address] Phone Care Team Providers Care Rn Unit Manager Name Role Phone Lena Aguilera APRN Primary Care Physician [phone] Conditions or Problems Problem Name Problem Code Onset Date Status Entry Date Provider Comment Standard Description Annotate Body mass index (BMI) 32.0-32.9; adult Z68.32 (ICD-10-CM ) 11/05 Active 11/05 Lena Aguilera APRN Body mass index [BMI] 32.0-32.9, adult Body mass index (BMI) 32.0-32.9; adult Z68.32 (ICD-10-CM ) 10/29 Correction 10/29 Lena Aguilera APRN Body mass index [BMI] 32.0-32.9, adult Body mass index (BMI) 32.0-32.9; adult Z68.32 (ICD-10-CM ) 10/29 Removed 10/29 Lena Aguilera APRN Body mass index [BMI] 32.0-32.9, adult Body mass index (BMI) 32.0-32.9; adult Z68.32 (ICD-10-CM ) 10/29 Correction 10/29 Lena Aguilera APRN Body mass index [BMI] 32.0-32.9, adult Urinary incontinenc e, mild 321719752 (SNOMED CT) 10/29 Active 10/29 Lena Aguilera APRN Urinary incontinence Body mass index (BMI) 32.0-32.9; adult Z68.32 (ICD-10-CM ) 10/29 Removed 10/29 Lena Joneswell [employer] Body mass index [BMI] 32.0-32.9, adult Body mass index (BMI) 33.0-33.9; adult Z68.33 (ICD-10-CM ) 07/31 Correction 07/31 Lena Joneswell [employer] Body mass index [BMI] 33.0-33.9, adult Sinusitis 52440237 (SNOMED CT) 10/29 Inactive 10/29 Lena Joneswell [employer] Sinusitis [facility] Lack of physical exercise Z72.3 (ICD-10-CM ) 08/07 Active 08/08 Lenajose JonesWillymike GAGNON Lack of physical exercise Body mass index (BMI) 33.0-33.9; adult Z68.33 (ICD-10-CM ) 07/31 Removed 07/31 Lenajose JonesWillymike GAGNON Body mass index [BMI] 33.0-33.9, adult Body mass index (BMI) 33.0-33.9; adult Z68.33 (ICD-10-CM ) 07/25 Correction 07/25 Lena Jonesmike GAGNON Body mass index [BMI] 33.0-33.9, adult Followup of lab tests 053164199 (SNOMED CT) 07/31 Active 07/31 Lenajose JonesWillymike GAGNON Follow-up status Body mass index (BMI) 33.0-33.9; adult Z68.33 (ICD-10-CM ) 07/25 Removed 07/25 Lena Jonesmike GAGNON Body mass index [BMI] 33.0-33.9, adult Body mass index (BMI) 33.0-33.9; adult Z68.33 (ICD-10-CM ) Correction Lenajose JonesWillymike GAGNON Body mass index [BMI] 33.0-33.9, adult Prediabetes 433556892 (SNOMED CT) 2020 Active 07/25 Lena Aguilera APRN Prediabetes Joint pain 79730502 (SNOMED CT) 07/25 Active 07/25 Lena Aguilera [employer] Pain of joint Body mass index (BMI) 33.0-33.9; adult Z68.33 (ICD-10-CM ) Removed Bianka Vania [employer] Body mass index [BMI] 33.0-33.9, adult Influenza 5121237 (SNOMED CT) Active Bianka Vania [employer] Influenza Body mass index (BMI) 33.0-33.9; adult Z68.33 (ICD-10-CM ) 01/24 Correction 01/24 Bianka Vania [employer] Body mass index [BMI] 33.0-33.9, adult Body aches 29246665 (SNOMED CT) Active Bianka Vania [employer] Generalized aches and pains Body mass index (BMI) 33.0-33.9; adult Z68.33 (ICD-10-CM ) 01/24 Removed 01/24 Lena Aguilera [employer] Body mass index [BMI] 33.0-33.9, adult Body mass index (BMI) 34.0-34.9; adult Z68.34 (ICD-10-CM ) 07/10 Correction 07/10 Lena Aguilera [employer] Body mass index [BMI] 34.0-34.9, adult Body mass index (BMI) 34.0-34.9; adult Z68.34 (ICD-10-CM ) 07/10 Removed 07/10 Gavin Plascencia MD Body mass index [BMI] 34.0-34.9, adult Counseling for nutrition Z71.3 (ICD-10-CM ) 07/10 Inactive 07/10 Gavin Plascencia MD Dietary counseling and surveillance Body mass index (BMI) 37.0-37.9; adult Z68.37 (ICD-10-CM ) 10/27 Correction 10/27 Gavin Plascencia MD Body mass index [BMI] 37.0-37.9, adult Counseling for nutrition Z71.3 (ICD-10-CM ) 10/27 Inactive 10/27 Gavin Plascencia MD Dietary counseling and surveillance Body mass index (BMI) 37.0-37.9; adult Z68.37 (ICD-10-CM ) 10/27 Removed 10/27 Gavin Plascencia MD Body mass index [BMI] 37.0-37.9, adult Body mass index (BMI) 38.0-38.9; adult Z68.38 (ICD-10-CM ) Correction Gavin Plascencia MD Body mass index [BMI] 38.0-38.9, adult Colon cancer screening 918193208 (SNOMED CT) 10/27 Active 10/27 Gavin Plascencia MD Screening for malignant neoplasm of colon Mammographi c screening for breast cancer 74850624 (SNOMED CT) 10/27 Active 10/27 Gavin Plascencia MD Screening mammography Exposure to COVID-19 coronavirus 998553623 (SNOMED CT) 07/10 Active 07/10 Lena Aguilera APRN Exposure to communicable disease Body mass index (BMI) 38.0-38.9; adult Z68.38 (ICD-10-CM ) Removed Govind Dodson APRN Body mass index [BMI] 38.0-38.9, adult Counseling for nutrition Z71.3 (ICD-10-CM ) Inactive Govind Dodson APRN Dietary counseling and surveillance Body mass index (BMI) 19 or less; adult Z68.1 (ICD-10-CM ) 10/21 Correction 10/21 Govind Dodson APRN Body mass index [BMI] 19.9 or less, adult Liver lesion 446461753 (SNOMED CT) 12/28 Active 12/28 Govind Dosdon APRN Lesion of liver Abdominal pain, right upper quadrant 777956177 (SNOMED CT) 12/15 Active 12/15 Paola Fuller MA Right upper quadrant pain Diarrhea 98677822 (SNOMED CT) 12/15 Active 12/15 Paola Fuller MA Diarrhea Nausea and vomiting 70379100 (SNOMED CT) 12/15 Active 12/15 Paola Fuller MA Nausea and vomiting Body mass index (BMI) 19 or less; adult Z68.1 (ICD-10-CM ) 10/21 Removed 10/21 Govind Dodson [employer] Body mass index [BMI] 19.9 or less, adult Body mass index (BMI) 39.0-39.9; adult Z68.39 (ICD-10-CM ) 09/08 Correction 09/08 Govind Dodson [employer] Body mass index [BMI] 39.0-39.9, adult Vaginal lesion 364621866 (SNOMED CT) 10/21 Active 10/21 Govind Dodson [employer] Vaginal lesion Nausea and vomiting 85889515 (SNOMED CT) 10/21 Active 10/21 Govind Dodson [employer] Nausea and vomiting Cough 78515160 (SNOMED CT) 10/21 Active 10/21 Govind Dodson [employer] Cough Body mass index (BMI) 39.0-39.9; adult Z68.39 (ICD-10-CM ) 09/08 Removed 09/08 Govind Dodson [employer] Body mass index [BMI] 39.0-39.9, adult Body mass index (BMI) 40.0-44.9; adult Z68.41 (ICD-10-CM ) 02/25 Correction 02/25 Govind Dodson [employer] Body mass index [BMI] 40.0-44.9, adult Vitamin D deficiency 91332729 (SNOMED CT) 09/08 Active 09/08 Govind Dodson [employer] Vitamin D deficiency Gout 30396682 (SNOMED CT) 09/08 Active 09/08 Govind Dodson [employer] Gout Body mass index (BMI) 40.0-44.9; adult Z68.41 (ICD-10-CM ) 02/25 Removed 02/25 Govind Dodson APRN Body mass index [BMI] 40.0-44.9, adult Shoulder joint pain, right 015962018 (SNOMED CT) 02/25 Active 02/25 Govind Dodson [employer] Shoulder joint pain Counseling for nutrition Z71.3 (ICD-10-CM ) 02/25 Inactive 02/25 Govind Dodson APRN Dietary counseling and surveillance Body mass index (BMI) 39.0-39.9; adult Z68.39 (ICD-10-CM ) 11/12 Correction 11/12 Govind Dodson [employer] Body mass index [BMI] 39.0-39.9, adult Prediabetes 252035445 (SNOMED CT) 02/25 Active 02/25 Govind Dodson [employer] Prediabetes Body mass index (BMI) 39.0-39.9; adult Z68.39 (ICD-10-CM ) 11/12 Removed 11/12 Govind Dodson [employer] Body mass index [BMI] 39.0-39.9, adult Counseling for nutrition Z71.3 (ICD-10-CM ) 11/12 Inactive 11/12 Govind Dodson [employer] Dietary counseling and surveillance Body mass index (BMI) 39.0-39.9; adult Z68.39 (ICD-10-CM ) 08/21 Correction 08/21 Govind Dodson APRN Body mass index [BMI] 39.0-39.9, adult Enlarged lymph nodes 63305973 (SNOMED CT) 11/12 Active 11/12 Govind Dodson [employer] Lymphadenopath y Elevated liver enzymes 256630447 (SNOMED CT) 08/25 Active 08/25 Govind Dodson [employer] Liver enzymes outside reference range Hyperlipide dillon 39902485 (SNOMED CT) 08/25 Active 08/25 Govind Dodson [employer] Hyperlipidemia Hyperglycem ia 07570146 (SNOMED CT) 08/25 Active 08/25 Govind Dodson [employer] Hyperglycemia Body mass index (BMI) 39.0-39.9; adult Z68.39 (ICD-10-CM ) 08/21 Removed 08/21 Govind Dodson APRN Body mass index [BMI] 39.0-39.9, adult Breast exam 67718962 (SNOMED CT) 08/21 Active 08/21 Govind Dodson [employer] Examination of breast Foot joint pain, left 480340432 (SNOMED CT) 08/21 Active 08/21 Govind Dodson [employer] Pain of joint of foot Knee joint pain, right 40291214 (SNOMED CT) 08/21 Active 08/21 Govind Dodson [employer] Knee pain Dysuria 39417416 (SNOMED CT) 08/21 Active 08/21 Govind Dodson [employer] Dysuria Vaginal discharge 510763621 (SNOMED CT) 08/21 Active 08/21 Govind Dodson [employer] Vaginal discharge Establish care or get acquainted visit 139746587 (SNOMED CT) 08/21 Active 08/21 Govind Dodson APRN Procedure carried out on subject Hypothyroid 31158530 (SNOMED CT) 08/21 Active 08/21 Govind Dodson [employer] Hypothyroidism Hypertensio n, benign 60720253 (SNOMED CT) 08/21 Active 08/21 Govind Dodson [employer] Benign hypertension Hx of hysterectom y, total 706058804 (OMED CT) 08/21 Active 08/21 Govind Dodson [employer] Total hysterectomy Medications Medication Instructions Start Date Stop Date Generic Name ND Provider Diflucan 150 mg tablet Take 1 tablet by mouth single dose May repeat in 7 days 11/05 Diflucan 150 mg tablet Lena Willy [employer]ORD[employer]ATOR [employer] NATURAL VITAMIN D-3 125 MCG (5000 UT) TABS Take 1 tablet by mouth once a day 11/05 cholecalciferol (vitamin d3) 57158734358 Lena Willymike JENKINSN AMOXICILLIN 500 MG CAPS Take 1 capsule by mouth twice a day for 10 days 10/29 amoxicillin 25395819912 Lena Willy [employer]ORDINATOR [employer] GOODSENSE ASPIRIN 81 MG CHEW 08/07 aspirin 53728654330 Lena Willy [employer] FISH OIL 1000 MG CAPS Take 1 capsule by mouth twice a day 07/25 omega 4-jsv-ofs-fish oil 62210573246 Lena Aguilera APRN GOODSENSE ASPIRIN 81 MG CHEW Take 1 tablet by mouth once a day 08/07 aspirin 96123982190 Lena Aguilera APRN LISINOPRIL-HYDROCHLO ROTHIAZIDE 20-12.5 MG TABS Take 1 tablet by mouth once a day 07/10 lisinopril-hydroch lorothiazide 98318499888 Lena Aguilera APRN FISH OIL 1000 MG CAPS Take 1 capsule by mouth twice a day 07/25 omega 4-fxd-zoq-fish oil 91256910387 Lena Aguilera APRN LEVOTHYROXINE SODIUM 75 MCG TABS Take 1 tablet by mouth once a day 08/21 levothyroxine 94274550850 Lena Aguilera APRN LISINOPRIL-HYDROCHLO ROTHIAZIDE 20-12.5 MG TABS Take 1 tablet by mouth once a day 07/10 lisinopril-hydroch lorothiazide 96502306199 Marine Lawrence APRN LEVOTHYROXINE SODIUM 75 MCG TABS Take 1 tablet by mouth once a day 08/21 levothyroxine 94440964541 Marine Lawrence APRN FISH OIL 1000 MG CAPS Take 1 capsule by mouth twice a day 07/25 omega 2-umf-rbj-fish oil 55208072471 Lena Aguilera APRN TAMIFLU 75 MG CAPS Take 1 capsule by mouth twice a day FOR FIVE DAYS 07/25 oseltamivir 95385911119 Lena Aguilera APRN PREDNISONE 20 MG TABS Take 1 tablet by mouth twice a day for 5 days 07/25 prednisone 72399445294 Lena Aguilera APRN PRAVASTATIN SODIUM 20 MG TABS Take 1 tablet by mouth once a day 01/24 pravastatin 14046814442 Lena Aguilera APRN TAMIFLU 75 MG CAPS Take 1 capsule by mouth twice a day FOR FIVE DAYS oseltamivir 96464613133 Lena Aguilera APRN PREDNISONE 20 MG TABS Take 1 tablet by mouth twice a day for 5 days prednisone 09686424413 Lena Aguilera APRN PRAVASTATIN SODIUM 20 MG TABS Take 1 tablet by mouth once a day 01/24 pravastatin 16684877442 Lena Aguilera APRN PRAVASTATIN SODIUM 20 MG TABS Take 1 tablet by mouth once a day 01/24 pravastatin 84510360492 Rebecca Abhinav [employer] TAMIFLU 75 MG CAPS Take 1 capsule by mouth twice a day FOR FIVE DAYS oseltamivir 03759248667 Bianka Vania [employer] PREDNISONE 20 MG TABS Take 1 tablet by mouth twice a day for 5 days prednisone 28797494811 Bianka Vania KALIN GOODSENSE ASPIRIN 81 MG CHEW aspirin 98689731396 Lena Aguilera APRN METFORMIN HCL 500 MG TABS Take increase to 2 tablets in AM and 1 tablet in PM metformin 40204625324 Lena Aguilera APRN ALLOPURINOL 100 MG TABS TAKE 1 TABLET BY MOUTH ONCE DAILY 01/07 allopurinol 05633037447 Lena Aguilera APRN LEVOTHYROXINE SODIUM 75 MCG TABS Take 1 tablet by mouth once a day 08/21 levothyroxine 07720325534 Lena Aguilera APRN LISINOPRIL-HYDROCHLO ROTHIAZIDE 20-12.5 MG TABS Take 1 tablet by mouth once a day 07/10 lisinopril-hydroch lorothiazide 65309998891 Lena Aguilera APRN PRAVASTATIN SODIUM 20 MG TABS Take 1 tablet by mouth once a day 01/24 pravastatin 81966676125 Lena Aguilera APRN METFORMIN HCL 500 MG TABS Take increase to 2 tablets in AM and 1 tablet in PM metformin 07772112915 Gavin Plascencia MD PRAVASTATIN SODIUM 10 MG TABS Take 1 tablet by mouth every night 09/09 pravastatin 40778542125 Gavin Plascencia MD METHOCARBAMOL 750 MG TABS TAKE 1 TABLET BY MOUTH THREE TIMES DAILY as needed for muscle spasms. 07/10 methocarbamol 75352462963 Gavin Plascencia MD LEVOTHYROXINE SODIUM 75 MCG TABS Take 1 tablet by mouth once a day 08/21 levothyroxine 07606498552 Gavin Plascencia MD NAPROXEN 500 MG TABS Take 1 tablet by mouth twice a day as needed 08/21 naproxen 55293427482 Gavin Plascencia MD LISINOPRIL-HYDROCHLO ROTHIAZIDE 20-25 MG TABS Take 1 tablet by mouth once a day 07/10 lisinopril-hydroch lorothiazide 52200391547 Gavin Plascencia MD LISINOPRIL-HYDROCHLO ROTHIAZIDE 20-12.5 MG TABS Take 1 tablet by mouth once a day 07/10 lisinopril-hydroch lorothiazide 17779363009 Gavin Plascencia MD CYCLOBENZAPRINE HCL 10 MG TABS Take 1 tablet by mouth at bedtime 07/10 cyclobenzaprine 50336896653 Gavin Plascencia MD METFORMIN HCL 500 MG TABS Take increase to 2 tablets in AM and 1 tablet in PM metformin 32356973136 Holly Nolan APRN PRAVASTATIN SODIUM 10 MG TABS Take 1 tablet by mouth every night 09/09 pravastatin 66868983300 Holly Nolan APRN LISINOPRIL-HYDROCHLO ROTHIAZIDE 20-25 MG TABS Take 1 tablet by mouth once a day lisinopril-hydroch lorothiazide 61683656211 Holly Nolan APRN LEVOTHYROXINE SODIUM 75 MCG TABS Take 1 tablet by mouth once a day 08/21 levothyroxine 37926689714 Holly Blanchejulienne [employer] METHOCARBAMOL 750 MG TABS TAKE 1 TABLET BY MOUTH THREE TIMES DAILY as needed for muscle spasms. methocarbamol 67637502538 Holly Nolan APRN LEVOTHYROXINE SODIUM 75 MCG TABS Take 1 tablet by mouth once a day 08/21 levothyroxine 29318802019 Govind Dodson APRN PRAVASTATIN SODIUM 10 MG TABS Take 1 tablet by mouth every night 09/09 pravastatin 99634122060 Govind Dodson APRN METFORMIN HCL 500 MG TABS Take increase to 2 tablets in AM and 1 tablet in PM metformin 14326877471 Govind Dodson APRN METHOCARBAMOL 750 MG TABS TAKE 1 TABLET BY MOUTH THREE TIMES DAILY as needed for muscle spasms. methocarbamol 67486271977 Govind West JENKINSN HYDROCHLOROTHIAZIDE 25 MG TABS Take 1 tablet by mouth once a day TAKE ONE TABLET BY MOUTH DAILY 03/17 hydrochlorothiazid e 76195462687 Govind West GAGNON VITAMIN D3 1.25 MG (92839 UT) CAPS Take 1 capsule by mouth once a week 09/08 cholecalciferol (vitamin d3) 12796250793 Govind Dodson APRN LISINOPRIL-HYDROCHLO ROTHIAZIDE 20-25 MG TABS Take 1 tablet by mouth once a day lisinopril-hydroch lorothiazide 64614191380 Govind Dodson APRN METFORMIN HCL 500 MG TABS Take increase to 2 tablets in AM and 1 tablet in PM metformin 20830255091 Gavin Plascencia MD ALLOPURINOL 100 MG TABS TAKE 1 TABLET BY MOUTH ONCE DAILY 01/07 allopurinol 28353357501 Gavin Plascencia MD LEVOTHYROXINE SODIUM 75 MCG TABS Take 1 tablet by mouth once a day 08/21 levothyroxine 95249785773 Gavin Plascencia MD VITAMIN D3 1.25 MG (50267 UT) CAPS Take 1 capsule by mouth once a week 09/08 cholecalciferol (vitamin d3) 09428967508 Gavin Plascencia MD HYDROCHLOROTHIAZIDE 25 MG TABS Take 1 tablet by mouth once a day TAKE ONE TABLET BY MOUTH DAILY 03/17 hydrochlorothiazid e 90218682229 Gavin Plascencia MD PRAVASTATIN SODIUM 10 MG TABS Take 1 tablet by mouth every night 09/09 pravastatin 06746088165 Gavin Plascencia MD METFORMIN HCL 500 MG TABS Take 1 tablet by mouth twice a day increase to 2 tablets in AM and 1 tablet in PM 04/07 metformin 69290735852 Govind Dodson APRN METFORMIN HCL 500 MG TABS Take increase to 2 tablets in AM and 1 tablet in PM metformin 25027161777 Govind Dodson APRN LEVOTHYROXINE SODIUM 75 MCG TABS Take 1 tablet by mouth once a day 08/21 levothyroxine 39379233791 Govind Dodson APRN METFORMIN HCL 500 MG TABS Take 1 tablet by mouth twice a day 09/09 metformin 91196777725 Govind Dodson APRN HYDROCHLOROTHIAZIDE 25 MG TABS Take 1 tablet by mouth once a day TAKE ONE TABLET BY MOUTH DAILY 03/17 hydrochlorothiazid e 06068169370 Govind Dodson APRN METFORMIN HCL 500 MG TABS Take 1 tablet by mouth twice a day increase to 2 tablets in AM and 1 tablet in PM metformin 72211360107 Govind Dodson APRN LEVOTHYROXINE SODIUM 75 MCG TABS Take 1 tablet by mouth once a day 08/21 levothyroxine 26724255412 Joana Boudreaux APRN HYDROCHLOROTHIAZIDE 25 MG TABS Take 1 tablet by mouth once a day 08/21 hydrochlorothiazid e 05008669321 Paola Fuller MA HYDROCHLOROTHIAZIDE 25 MG TABS Take 1 tablet by mouth once a day TAKE ONE TABLET BY MOUTH DAILY 03/17 hydrochlorothiazid e 08176386933 Joana Boudreaux APRN ALLOPURINOL 100 MG TABS Take 1 tablet by mouth once a day 09/08 allopurinol 96721176804 Govind Dodson APRN ALLOPURINOL 100 MG TABS TAKE 1 TABLET BY MOUTH ONCE DAILY 01/07 allopurinol 32948849581 Govind Dodson APRN NAPROXEN 500 MG TABS Take 1 tablet by mouth twice a day as needed 08/21 naproxen 91218431342 Govind Dodson APRN VITAMIN D3 1.25 MG (96565 UT) CAPS Take 1 capsule by mouth once a week 09/08 cholecalciferol (vitamin d3) 98568220968 Govind Dodson APRN ALLOPURINOL 100 MG TABS Take 1 tablet by mouth once a day 09/08 allopurinol 33750018798 Govind Dodson APRN IMODIUM A-D 2 MG TABS TAKE 2 TABLETS BY MOUTH ONCE THEN TAKE 1 TABLET AFTER EACH LOOSE BOWEL MOVEMENT. MAX 4 TABLETS IN 24 HOURS 10/21 LOPERAMIDE HCL Govind Dodson KALIN LEVOTHYROXINE SODIUM 75 MCG TABS Take 1 tablet by mouth once a day 08/21 levothyroxine 28580169755 Govind Dodson APRN METFORMIN HCL 500 MG TABS Take 1 tablet by mouth twice a day 09/09 metformin 69121174231 Govind Dodson APRN PRAVASTATIN SODIUM 10 MG TABS Take 1 tablet by mouth every night 09/09 pravastatin 54913769730 Govindravi Dodson KALIN HYDROCHLOROTHIAZIDE 25 MG TABS Take 1 tablet by mouth once a day 08/21 hydrochlorothiazid e 16248654088 Paola Alina MA IMODIUM A-D 2 MG TABS 1 tablet by mouth four times a day TAKE 2 TABLETS BY MOUTH ONCE THEN TAKE 1 TABLET AFTER EACH LOOSE BOWEL MOVEMENT. MAX 4 TABLETS IN 24 HOURS 12/15 LOPERAMIDE HCL Govind Dodson KALIN ONDANSETRON 8 MG TBDP Take 1 tablet by mouth every six to eight hours as needed for nausea/vomiti ng 12/15 ondansetron 69511087246 Govindravi Dodson KALIN VALTREX 1 GM TABS TAKE 1 TABLET BY MOUTH 2 TIMES A DAY 10/21 VALACYCLOVIR HCL 27424064225 Govind Dodson KALIN IMODIUM A-D 2 MG TABS TAKE 2 TABLETS BY MOUTH ONCE THEN TAKE 1 TABLET AFTER EACH LOOSE BOWEL MOVEMENT. MAX 4 TABLETS IN 24 HOURS 10/21 LOPERAMIDE HCL 39489278064 Govind Dodson APRN ONDANSETRON HCL 8 MG TABS TAKE 1 TABLET BY MOUTH EVERY 8 HOURS NEEDED FOR NAUSEA/VOMTIN G 10/21 ONDANSETRON HCL 82201465206 Govind Dodson APRN METFORMIN HCL 500 MG TABS TAKE 1 TABLET BY MOUTH 2 TIMES A DAY 09/09 METFORMIN HCL 10770649001 Govind Dodson [employer] PRAVASTATIN SODIUM 10 MG TABS TAKE 1 TABLET BY MOUTH AT BEDTIME FOR CHOLESTEROL 09/09 PRAVASTATIN SODIUM 57614399501 Govind Dodson APRN VITAMIN D3 1.25 MG (52553 UT) CAPS TAKE 1 CAPSULE BY MOUTH ONCE PER WEEK 09/08 CHOLECALCIFEROL 27794418094 Govind Dodson APRN ALLOPURINOL 100 MG TABS TAKE 1 TABLET BY MOUTH ONCE A DAY 09/08 ALLOPURINOL 52354314428 Govind Dodson APRN PRAVASTATIN SODIUM 10 MG TABS TAKE 1 TABLET BY MOUTH AT BEDTIME FOR CHOLESTEROL 02/26 PRAVASTATIN SODIUM 78899527228 Govind Dodson APRN METFORMIN HCL 500 MG TABS TAKE 1 TABLET BY MOUTH 2 TIMES A DAY 02/26 METFORMIN HCL 20684552155 Govind Dodson APRN METFORMIN HCL 500 MG TABS TAKE 1 TABLET BY MOUTH 2 TIMES A DAY 02/26 METFORMIN HCL 12386786200 Govind Dodson APRN PRAVASTATIN SODIUM 10 MG TABS TAKE 1 TABLET BY MOUTH AT BEDTIME FOR CHOLESTEROL 02/26 PRAVASTATIN SODIUM 58841721524 Govind Dodson APRN LEVOTHYROXINE SODIUM 75 MCG TABS TAKE 1 TABLET BY MOUTH ONCE A DAY 08/21 LEVOTHYROXINE SODIUM 61744259071 Govind Dodson APRN NAPROXEN 500 MG TABS TAKE 1 TABLET BY MOUTH 2 TIMES A DAY NEEDED 08/21 NAPROXEN 78643648875 Govind Dodson APRN HYDROCHLOROTHIAZIDE 25 MG TABS TAKE ONE TABLET BY MOUTH ONCE DAILY 08/21 HYDROCHLOROTHIAZID E 86743606985 Govind Dodson APRN LEVOTHYROXINE SODIUM 50 MCG TABS TAKE ONE TABLET BY MOUTH ONCE DAILY 08/21 LEVOTHYROXINE SODIUM 28566380128 Govind Dodson APRN Medications Administered No information available. Allergies, Adverse Reactions, Alerts Allergy Name Reaction Description Start Date Severity Statu s Provider BACTRIM RASH Mild Active Govind hastings [employer] Results Date Name Value Unit Range Flag Description Office Visit: EST CARE, BILA TERAL KNEE PAIN, HAND NUMB & PAIN TOP OF FOOT LDL GOAL <100 mg/dL LDL target l evel GLUCOSE, URN negative Glucose [Mass/volume] in Urine by Test strip BILIRUBIN UR negative Bilirub in.total [Presence] in Urine by Test strip KETONES URN negative Ketones [Mass/volume] in Urine by Test strip SPEC GR URIN 1.030 Specific gravity of Urine by Test strip BLOOD UR DIP negative blood i n urine (hemoglobin) by dipstick PH URINE 6.0 pH of Urine by Test strip PROTEIN, URN negative protein , urine, semiquantitative (dipstick) UROBILINOGEN 0.2 Urobilin ogen [Presence] in Urine by Test strip NITRITE URN negative Nitrite [Presence] in Urine by Test strip WBC DIPSTK U negative Leukocy te esterase [Presence] in Urine by Test strip APPEARANCE U clear Appearan ce of Urine UA COLOR yellow Color of Uri ne Lab Report: BV/VAGINITIS BELCHER EL DNA PROBE DNAPROBECAND NOT DETECTED NOT DETECT N Ninoska guilliermondii DNA [Presence] in Specimen by CHEPE with probe detection VAGCULTGARDN NOT DETECTED NOT DETECT N Vaginal Culture Gardnerella TRICHO WET NOT DETECTED NOT DETECT N Tr ichomonas vaginalis [Presence] in Genital specimen by Wet preparation Lab Report: LIPID PANEL WITH REFLEX TO DIRECT LDL, LIPID PANEL WITH REFL ... T4, FREE 1.1 ng/dL 0.8-1.8 N Thyroxine (T 4) free [Mass/volume] in Serum or Plasma Lab Report: COMPREHENSIVE ME TABOLIC PANEL, CBC (INCLUDES DIFF/PLT), AMYL ... LIPASE SERUM 23 U/L 7-60 N lipase, serum AMYLASE 61 U/L 21-101 N Amylase [Enzy matic activity/volume] in Serum or Plasma Lab Report: LIPID PANEL WITH REFLEX TO DIRECT LDL, LIPID PANEL WITH REFL ... EGFR IF AFA 109 mL/min/1 .73m2 >OR = 60 N Glomerular filtration rate/1.73 sq M.predicted among blacks [Volume Rate/Area] in Serum, Plasma or Blood by Creatinine-based formula (MDRD) EGFR 94 mL/min/1 .73m2 >OR = 60 N Glomerular filtration rate/1.73 sq M.predicted [Volume Rate/Area] in Serum, Plasma or Blood by Creatinine-based formula (MDRD) URIC ACID 5.5 mg/dL 2.5-7.0 N Urate [Mass /volume] in Serum or Plasma Office Visit: INFLUENZA LABS ORDERED Strep Screen 64030 Laboratory tests ordered RAPID STREP negative Streptoc occus pyogenes DNA [Presence] in Throat by CHEPE with non-probe detection Lab Report: LIPID PANEL WITH REFLEX TO DIRECT LDL, HDL CHOLESTEROL, TRIG ... VIT D 25-OH 62 ng/mL 30-100 N 25-Hydrox ycalcifero l [Mass/volume] in Serum or Plasma RA FACTOR <14 IU/mL [iU]/mL <14 N Rheumatoi d factor [Units/volume] in Serum or Plasma BEN HOMO PAT NEGATIVE NEGATIVE N BEN (a ntinuclear antibody) pattern, homogeneous ESR 11 mm/h < OR = 30 N Erythrocyte sedimentation rate by Westergren method HEP C AB NON-REACTIVE NON-REACTIV E N Hepatitis C virus Ab [Presence] in Serum HB CORE IGM NON-REACTIVE NON-REACTIV E N Hepatitis B virus core IgM Ab [Units/volume] in Serum HBSAG NON-REACTIVE NON-REACTIV E N Hepatitis B virus surface Ag [Presence] in Serum by Radioimmunoassay (VERO) ANTI-HAV IGM NON-REACTIVE NON-REACTI V E N Hepatitis A virus IgM Ab [Presence] in Serum or Plasma by Immunoassay HGBA1C 6.0 % <5.7 H Hemoglobin A1c/Hemoglobin, total in Blood - % TSH 3.15 u[iU]/mL 0.40-4.50 N Thyrotropi n [Units/volume] in Serum or Plasma BASO % MANU 0.9 % N basophils as percent of blood leukocytes, manual count EOS % MANU 7.4 % N eosinophil s as percent of blood leukocytes, manual count MONOCYTE % 4.7 % N Monocytes/ 100 leukocytes in Blood by Automated count LYMPH% P BLD 21.9 % N lymphocy joe as percent of blood leukocytes PMN % 65.1 % N Neutrophils/1 00 leukocytes in Blood by Automated count ABS BASOS 48 {Cells}/ uL 0-200 N Basophils [#/volume] in Blood ABS EOS 392 {Cells}/ uL 15-500 N Eosinophils [#/volume] in Blood ABS MONOS 249 {Cells}/ uL 200-950 N Monocytes [#/volume] in Blood ABSLYMPHCT 1161 {Cells}/ uL 850-3900 N Lymphocytes [#/volume] in Blood ABS NEUTROPH 3450 CELLS/UL 10*3/uL 7786-0026 N Neutrophils [#/volume] in Blood MPV 10.7 fL 7.5-12.5 N Platelet marjorie n volume [Entitic volume] in Blood by Daniel PLATELETK/UL 216 THOUSAND/UL 10*3/uL 140-400 N platelet count RDW 12.7 % 11.0-15.0 N Erythrocyte distribution width [Ratio] by Automated count OL-MCHC 32.2 g/dL 32.0-36.0 N mean corpus cular hemoglobin concentration, rbc MCH 28.1 pg 27.0-33.0 N MCH [Entiti c mass] by Automated count MCV 87.4 fL 80.0-100.0 N MCV [Entit ic volume] by Automated count HCT 40.1 % 35.0-45.0 N Hematocrit [Volume Fraction] of Blood by Automated count HGB 12.9 g/dL 11.7-15.5 N Hemoglobin [Mass/volume] in Blood RBC M/UL 4.59 MILLION/UL 10*6/uL 3.80-5.10 N red blood count WBC CT BLOOD 5.3 10*3/uL 3.8-10.8 N leukocy te count, blood SGPT (ALT) 20 U/L 6-29 N Alanine aminotransferase [Enzymatic activity/volume] in Serum or Plasma SGOT (AST) 16 U/L 10-35 N Aspartate aminotransferase [Enzymatic activity/volume] in Serum or Plasma ALK PHOS 63 U/L 37-153 N Alkaline phosphatase [Enzymatic activity/volume] in Blood BILI TOTAL 0.2 mg/dL 0.2-1.2 N Bilirubin. total [Mass/volume] in Serum or Plasma A/G RATIO 1.8 (calc) 1.0-2.5 N Albumin/ Globulin [Mass Ratio] in Serum or Plasma GLOBULIN TOT 2.2 G/DL (CALC) g/dL 1.9-3.7 N Globulin [Mass/volume] in Serum ALBUMIN EOP 3.9 g/dL 3.6-5.1 N Albumin [Mass/volume] in Serum or Plasma by Electrophoresis PROTEIN, TOT 6.1 g/dL 6.1-8.1 N Protein [Mass/volume] in Serum or Plasma CALCIUM 9.3 mg/dL 8.6-10.4 N Calcium [Moles/volume] in Serum or Plasma CO2 26 mmol/L 20-32 N Carbon dioxid e, total [Moles/volume] in Venous blood CHLORIDE BLD 105 mmol/L 98-110 N chloride , blood POTASSIUM 4.2 mmol/L 3.5-5.3 N Potassium [Moles/volume] in Serum or Plasma SODIUM 140 mmol/L 135-146 N Sodium [Moles/volume] in Serum or Plasma BUN/CREAT SEE NOTE: (calc) 6-22 Urea nitrogen/Creatinine [Mass Ratio] in Serum or Plasma CREATININE 0.93 mg/dL 0.50-1.05 N Creatini ne [Mass/volume] in Serum or Plasma BUN 19 mg/dL 7-25 N Urea nitrogen [Mass/volume] in Serum or Plasma GLUCOSE SER 103 mg/dL 65-99 H Glucose [Mass/volume] in Serum or Plasma NON-HDL CHOL 133 MG/DL (CALC) mg/dL <130 H cholesterol, non-HDL, total CHOL/HDL % 3.8 (calc) <5.0 N cholest brisa/HDL ratio, serum, percent LDL 110 MG/DL (CALC) mg/dL H Cholesterol in L DL [Mass/volume] in Serum or Plasma - mg/dL TRIGLYC TOT 124 mg/dL <150 N Triglycer alan [Mass/volume] in Serum or Plasma - mg/dL HDL 47 mg/dL >OR = 50 L Cholesterol in HDL [Mass/volume] in Serum or Plasma - mg/dL CHOLESTEROL 180 mg/dL <200 N Cholester ol [Mass/volume] in Serum or Plasma - mg/dL Plan of Care Type Date Detail Appointment 08:30 AM Lena Aguilera APRN, [address] , [place], [address], Referral [facility] Phy Therapy [facility], [address], [place], [address] Referral [facility], [address], [place], [place] Referral Orthopedic Refer ral General Pending order T1 CBC with diff Pending order T1 CMP Pending order T1 Lipid Panel Pending order T1 TSH reflex to free T4 Pending order T1 HGBA1c Pending order T1 Urine Culture Pending order T1 CMP Pending order T1 CBC with diff Pending order T1 Lipid Panel Pending order T1 TSH reflex to free T4 Pending order T1 HGBA1c Pending order T1 CMP Pending order T1 CBC with diff Pending order T1 Lipid Panel Pending order T1 HGBA1c Pending order T1 TSH reflex to free T4 Pending order Mammogram Pending order T1 CMP Pending order T1 CBC with diff Pending order T1 HGBA1c Pending order T1 Lipid Panel Pending order T1 TSH reflex to free T4 Pending order T2 Rheumatoid Fa ctor Quant Pending order T2 BEN Pending order T1 Sedimentation Rate RBC Pending order T1 Acute Hepatit s Panel Pending order T2 Vitamin D 25 Hydroxy Pending order Ultrasound RUQ Pending Order exclud ed from report: Pending order Strep Screen 878 80 Pending order T2 Vitamin D 25 Hydroxy Pending order Mammogram Pending order T1 CMP Pending order T1 CBC with diff Pending order T1 HGBA1c Pending order T1 Lipid Panel Pending order T1 TSH reflex to free T4 Pending order T1 CBC with diff Pending Order exclud ed from report: Pending order T1 CMP Pending Order exclud ed from report: Pending order T1 HGBA1c Pending Order exclud ed from report: Pending order T1 Lipid Panel Pending Order exclud ed from report: Pending order T1 TSH reflex to free T4 Pending Order exclud ed from report: Pending order T1 Uric Acid Pending Order exclud ed from report: Pending order Mammogram Pending Order exclud ed from report: Pending order Mammogram Pending Order exclud ed from report: Pending order T1 CMP Pending order T1 HGBA1c Pending order T1 Lipid Panel Pending order T1 TSH reflex to free T4 Pending order T2 Vitamin D 25 Hydroxy Pending order Hemoccult FIT 88 274 Pending Order exclud ed from report: Pending order Lipid Profile Pending Order exclud ed from report: Pending order SGPT (ALT) Pending Order exclud ed from report: Pending order SGOT (AST) Pending Order exclud ed from report: Pending order Mammogram Pending Order exclud ed from report: Pending order Hemoccult FIT 88 274 Pending order Patient Pay- COV ID-19 Pending order T1 CMP Pending order T1 CBC with diff Pending order T1 HGBA1c Pending order T1 TSH reflex to free T4 Pending order CT Abdomen and P angie w & w-out contrast Pending order T1 Amylase Pending order T1 CBC with diff Pending order T1 CMP Pending order T1 Lipase Pending order Ultrasound Gall Bladder Pending order Patient Pay- COV ID-19 Pending order Patient Pay- COV ID-19 Pending order Urine Dip Manual 81545 Pending order T1 CMP Pending order T1 Lipid Panel Pending order T1 TSH reflex to free T4 Pending order Urine Dip Manual 13120 Pending Order exclud ed from report: Pending order T1 CMP Pending order T1 HGBA1c Pending order T1 TSH reflex to free T4 Pending order T1 Lipid Panel Pending order Urine Dip Auto 8 1003 Pending order MRI Knee w-o con trast Pending order Mammogram Patient education Patient Educat ion Given Patient education Patient Educat ion Given Patient education Patient Educat ion Given Patient education Patient Educat ion Given Patient education LOW%20PURINE%2 0DIET Patient education GOUT Patient education LOW%20PURINE%2 0DIET Patient education GOUT Patient education Patient Educat ion Given Patient education Patient Educat ion Given Patient education Patient Educat ion Given Procedures Code Procedure Name Date Entry Date [facility]-[id number] Medication Reconciliation CPT-3075F Most recent systolic blood pressure 130-139 mm Hg CPT-3078F Most recent diastoli c blood pressure <80 mm Hg CPT-1159F Medication list docu mented in medical record CPT-1160F Review of all medica tions by a prescribing practitioner [facility] 6399 T1 CBC with diff [facility] 01839 T1 CMP [facility] 47370 T1 Lipid Panel [facility] 39931 T1 TSH reflex to free T4 11/03/07 [facility] 496 T1 HGBA1c [id number] Medication Reconciliation CPT-3074F Most recent systolic blood pressure <130 mm Hg CPT-3078F Most recent diastoli c blood pressure <80 mm Hg CPT-1159F Medication list docu mented in medical record CPT-1160F Review of all medica tions by a prescribing practitioner [facility] 395 T1 Urine Culture CPT-1159F Medication list docu mented in medical record CPT-1160F Review of all medica tions by a prescribing practitioner [id number] Lifestyle education regarding diet 08/07 [facility] 49503 T1 CMP [facility] 6399 T1 CBC with diff [facility] 51391 T1 Lipid Panel [facility] 12450 T1 TSH reflex to free T4 10/30/06 [facility] 496 T1 HGBA1c [id number] Medication Reconciliation Mammo LUCIEN Mammogram CPT-1159F Medication list docu mented in medical record [id number] Medication Reconciliation [facility] 40397 T1 CMP [facility] 6399 T1 CBC with diff [facility] 62232 T1 Lipid Panel [facility] 496 T1 HGBA1c [facility] 68302 T1 TSH reflex to free T4 10/06/00 CPT-3074F Most recent systolic blood pressure <130 mm Hg CPT-3078F Most recent diastoli c blood pressure <80 mm Hg SCT-[id number] Medication Reconciliation CPT-3074F Most recent systolic blood pressure <130 mm Hg CPT-3078F Most recent diastoli c blood pressure <80 mm Hg CPT-1159F Medication list docu mented in medical record CPT-1160F Review of all medica tions by a prescribing practitioner [place] URQ LUCIEN Ultrasound RUQ [id number] Lifestyle education regarding diet 07/25 [facility] 21465 T1 CMP [facility] 6399 T1 CBC with diff [facility] 496 T1 HGBA1c [facility] 43864 T1 Lipid Panel [facility] 95120 T1 TSH reflex to free T4 202 09/29/24 [facility] 4418 T2 Rheumatoid Factor Quant 2 [facility] 249 T2 BEN [facility] 809 T1 Sedimentation Rate RBC 20 24/07/24 [facility] 07382 T1 Acute Hepatits Panel 2023 [facility] 76936 T2 Vitamin D 25 Hydroxy 2023 [facility] CPT-54498 Strep Screen 18095 7 CPT-3074F Most recent systolic blood pressure <130 mm Hg CPT-3079F Most recent diastoli c blood pressure 80-89 mm Hg CPT-1159F Medication list docu mented in medical record [id number] Medication Reconciliation [id number] Never smoker CPT-1159F Medication list docu mented in medical record CPT-1160F Review of all medica tions by a prescribing practitioner [facility] 75430 T1 CMP [facility] 6399 T1 CBC with diff [facility] 496 T1 HGBA1c [facility] 88030 T1 Lipid Panel [facility] 12459 T1 TSH reflex to free T4 09/04/26 [facility] 09486 T2 Vitamin D 25 Hydroxy 2022 Mammo LUCIEN Mammogram SCT-[id number] Medication Reconciliation CPT-3074F Most recent systolic blood pressure <130 mm Hg CPT-3079F Most recent diastoli c blood pressure 80-89 mm Hg SCT-[id number] Medication Reconciliation [facility] 6399 T1 CBC with diff [facility] 63954 T1 CMP [facility] 496 T1 HGBA1c [facility] 96080 T1 Lipid Panel [facility] 30122 T1 TSH reflex to free T4 202 08/29/09 [facility] 905 T1 Uric Acid CPT-3074F Most recent systolic blood pressure <130 mm Hg CPT-3079F Most recent diastolic blood pressure 80-8 9 mm Hg CPT-1159F Medication list documented in medical rec ord CPT-1160F Review of all medica tions by a prescribing practitioner Mammo LUCIEN Mammogram Mammo LUCIEN Mammogram CPT-1159F Medication list docu mented in medical record SCT-[id number] Medication Reconciliation [id number] Giving encouragement to exercise SCT-[id number] Dietary management education/guidance/counseling SCT-[id number] Lifestyle education regarding diet 04/26 SCT-[id number] Prescribed activity/exercise education [facility] 83958 T1 CMP [facility] 496 T1 HGBA1c [facility] 55261 T1 Lipid Panel [facility] 67020 T1 TSH reflex to free T4 08/10/26 [facility] 86295 T2 Vitamin D 25 Hydroxy 2021 SCT-[id number] Medication Reconciliation [id number] Lipid Profile [id number] SGPT (ALT) [id number],[id number] SGOT (AST) [facility] 6399 T1 CBC with diff [facility] 34684 T1 CMP [facility] 496 T1 HGBA1c [facility] 77532 T1 Lipid Panel [facility] 77876 T1 TSH reflex to free T4 08/04/28 [facility] 905 T1 Uric Acid Mammo LUCIEN Mammogram CPT-3077F Most recent systolic blood pressure >=140 mm Hg CPT-3079F Most recent diastolic blood pressure 80-8 9 mm [place] [address] [place] [address] SCT-[id number] Medication Reconciliation [facility] 88078 Patient Pay- COVID-19 07/10 SCT-[id number] Medication Reconciliation CPT-3074F Most recent systolic blood pressure <130 mm Hg CPT-3078F Most recent diastoli c blood pressure <80 mm Hg CPT-1159F Medication list docu mented in medical record CPT-1160F Review of all medica tions by a prescribing practitioner [facility] 08338 T1 CMP [facility] 6399 T1 CBC with diff [facility] 496 T1 HGBA1c [facility] 82289 T1 TSH reflex to free T4 202 07/10/06 CT ABD & PELV W&WO CT Abdomen and Pelvis w & w-out con trast CPT-1159F Medication list docu mented in medical record SCT-[id number] Medication Reconciliation CPT-1160F Review of all medica tions by a prescribing practitioner SCT-[id number] Giving encouragement to exercise SCT-[id number] Dietary management education/guidance/counseling SCT-[id number] Lifestyle education regarding diet 12/15 SCT-[id number] Prescribed activity/exercise education [facility] 243 T1 Amylase [facility] 6399 T1 CBC with diff [facility] 65786 T1 CMP [facility] 606 T1 Lipase [facility] 33485 Patient Pay- COVID-19 0 12/15 [place] [facility] Ultrasound Gall Bladder 2020 SCT-[id number] Medication Reconciliation [facility] 77322 Patient Pay- COVID-19 10/21 SCT-[id number] Medication Reconciliation CPT-3075F Most recent systolic blood pressure 130-139 mm Hg CPT-3078F Most recent diastoli c blood pressure <80 mm Hg CPT-44893 Urine Dip Manual 14156 09/08 CPT-1159F Medication list docu mented in medical record CPT-1160F Review of all medica tions by a prescribing practitioner SCT-[id number] Giving encouragement to exercise SCT-[id number] Dietary management education/guidance/counseling SCT-[id number] Lifestyle education regarding diet 09/08 SCT-[id number] Prescribed activity/exercise education 2 [facility] 15371 T1 CMP [facility] 30523 T1 Lipid Panel [facility] 56674 T1 TSH reflex to free T4 202 07/03/10 SCT-[id number] Medication Reconciliation CPT-3074F Most recent systolic blood pressure <130 mm Hg CPT-3079F Most recent diastoli c blood pressure 80-89 mm Hg CPT-1159F Medication list docu mented in medical record CPT-1160F Review of all medica tions by a prescribing practitioner X-Ray Shoulder Right X-Ray Shoulder Right [facility] 98709 T1 CMP [facility] 496 T1 HGBA1c [facility] 43148 T1 TSH reflex to free T4 202 [facility] 00049 T1 Lipid Panel SCT-[id number] Medication Reconciliation SCT-[id number] Medication Reconciliation Other Other CPT-3075F Most recent systolic blood pressure 130-139 mm Hg CPT-3079F Most recent diastoli c blood pressure 80-89 mm Hg ORTHO GEN Orthopedic Referral General X-Ray Knee Right X-Ray Knee Right [facility] 496 T1 HGBA1c [facility] 35107 T1 Acute Hepatits Panel 2019 MRI KNEE WO [facility] MRI Knee w-o contrast 202 SCT-[id number] Medication Reconciliation [facility] 6399 T1 CBC with diff [facility] 36001 T1 CMP [facility] 72231 T1 Lipid Panel [facility] 31458 T1 TSH reflex to free T4 202 CPT-3074F Most recent systolic blood pressure <130 mm Hg CPT-3079F Most recent diastoli c blood pressure 80-89 mm Hg [facility] 67065 T2 BV Yeast Trich Culture (Affirm) 08/21 X-Ray Foot Left X-Ray Foot Left 1 SCT-[id number] Giving encouragement to exercise SCT-[id number] Dietary management education/guidance/counseling SCT-[id number] Lifestyle education regarding diet 08/21 SCT-[id number] Prescribed activity/exercise education 2 CPT-67257 Urine Dip Auto 90560 Mammo LUCIEN Mammogram Vital Signs Date Name Value Unit Description BMI (Body Mass Index) 32.39 kg/m2 Bod y Mass Index (Ratio) Body Temperature 97.9 [degF] temperat ure E&M Body Temperature 36.61 Elisa temperat ure in centigrade E&M BP Diastolic 79 mm[Hg] blood pressu re, diastolic BP Systolic 131 mm[Hg] blood pressur e, systolic BSA (Body Surface Area) 1.96 b jason surface area Heart Rate 64 /min pulse rate Height 64 [in_us] height E&M Height 162.56 cm height in cent imeters E&M Respiratory Rate 16 /min respirat ory rate E&M Weight Measured 85.45 kg weight in kilograms E&M Weight Measured 188 [lb_av] weight E& M Weight Measured 188 [lb_av] weight E& M Immunizations No information available. Advance Directives Directive Description Start Date DISCUSSED - NO DECISION MADE
--- OUTSIDE RECORDS SUMMARY | 2024-12-17 10:34 | XMS_ITS | Encounter Summary ---
Author Organization [employer] Address [address] [place] [address] Care Team Providers Care Picture Frames Inspector Name Role Phone Krystyna Elliott [facility] Primary Care Provider Nick Rasmussen PA-C Unavailable [phone] Lena Aguilera APRN Primary Care Provider [phone] Nimisha Nuñez PA-C Unavailable [phone] Encounter Details Date Type Department Care Team (Late st Contact Info) Description 12/17/2019 Transcribed Document [facility] [address] [place] [address] Provider, Audra Hargrove MD Social History Tobacco Use Types Packs/Day Years Used Date Smoking Tobacco: Never Assessed Comments Unknown Sex and Gender Information Value Date Recorded Sex Assigned at Not on file Legal Sex Female 6:57 PM CDT Gender Identity Not on file Sexual Orientation Not on file documented as of this encounter Miscellaneous Notes * Cerner Conversion Note - Audra Hargrove ProviderMD - 12/17/2019 10:36 AM EDT [facility] Main OR IntraOp Summary Primary Physician: DRAGAN FLAHERTY MD-ORT Finalized Date/Time: 12/17/19 11:02:35 Pt. Name: ANISA KATZ /Sex: 1965 Female Med Rec #: [id number] Physician: DRAGAN FLAHERTY MD-ORT Financial #: [id number] Pt. Type: O Room/Bed: [facility] Admit/Disch: 12/17/19 04:47:00 - Institution: [facility] Case Attendance Entry 1 Entry 2 Entry 3 Case Attendee DRAGAN FLAHERTY WICKER, KAREN KIM, RESIDENTIAL SUPPORT SPECIALIST Esteban Abbasi, BENJAMIN LAYNE-ORT Role Performed Surgeon/Proceduralist, RESIDENTIAL SUPPORT SPECIALIST/Nurse Cupola Melting Supervisor Goodwill Ambassador, First First Time In 12/17/19 09:22:00 12/17/19 09:22:00 12/17/19 09:22:00 Time Out 12/17/19 09:59:00 12/17/19 09:59:00 12/17/19 09:59:00 Procedure Knee Arthroscopy Knee Arthroscopy Knee Arthroscopy Other Attendee Superficial Wound Closed By: Last Modified By: Esteban Abbasi, Esteban Tejada RN Horton, Jamie, RN 12/17/19 10:06:09 12/17/19 10:06:09 12/17/19 10:06:09 Entry 4 Entry 5 Entry 6 Case Attendee Flor Tapia, Mary Bazzi, First Kian Elliott, Scrub Assist Tech Role Performed Goodwill Ambassador, Second Meeting/Event Planner, First Scrub, Second Time In 12/17/19 09:22:00 12/17/19 09:22:00 12/17/19 09:22:00 Time Out 12/17/19 09:59:00 12/17/19 09:59:00 12/17/19 09:59:00 Procedure Knee Arthroscopy Knee Arthroscopy Knee Arthroscopy Other Attendee Superficial Wound Closed By: Last Modified By: Esteban Abbasi, Esteban Tejada, Esteban Tejada RN 12/17/19 10:06:09 12/17/19 10:06:09 12/17/19 10:06:09 Entry 7 Entry 8 Case Attendee OTHER, ATTENDEE OTHER, ATTENDEE #1 Role Performed Vendor Vendor Time In 12/17/19 09:22:00 12/17/19 09:22:00 Time Out 12/17/19 09:59:00 12/17/19 09:59:00 Procedure Knee Arthroscopy Knee Arthroscopy Other Attendee JULIO IBRAHIM LOU RELIGION Superficial Wound Closed By: Last Modified By: Esteban Abbasi, Esteban Tejada RN 12/17/19 10:06:09 12/17/19 10:06:09 [facility] IntraOp Case Attendance Audit 12/17/19 10:06:09 Counterperson: [id number] Modifier: [id number] 1 <*> Procedure Knee Arthroscopy 2 <*> Procedure Knee Arthroscopy 3 <*> Procedure Knee Arthroscopy 4 <*> Procedure Knee Arthroscopy 5 <*> Procedure Knee Arthroscopy 6 <*> Procedure Knee Arthroscopy 7 <*> Procedure Knee Arthroscopy 8 <*> Procedure Knee Arthroscopy 12/17/19 10:05:50 Counterperson: [id number] Modifier: [id number] 1 <+> Time Out 1 <*> Procedure Knee Arthroscopy 2 <+> Time Out 2 <*> Procedure Knee Arthroscopy 3 <+> Time Out 3 <*> Procedure Knee Arthroscopy 4 <+> Time Out 4 <*> Procedure Knee Arthroscopy 5 <+> Time Out 5 <*> Procedure Knee Arthroscopy 6 <+> Time Out 6 <*> Procedure Knee Arthroscopy 7 <+> Time Out 7 <*> Procedure Knee Arthroscopy 8 <+> Time Out 8 <*> Procedure Knee Arthroscopy 12/17/19 09:38:00 Counterperson: [id number] Modifier: [id number] 1 <*> Procedure Knee Arthroscopy 2 <*> Procedure Knee Arthroscopy 3 <+> Time In 3 <*> Procedure Knee Arthroscopy 4 <+> Time In 4 <*> Procedure Knee Arthroscopy 5 <+> Time In 5 <*> Procedure Knee Arthroscopy 6 <+> Time In 6 <*> Procedure Knee Arthroscopy 7 <+> Time In 7 <*> Procedure Knee Arthroscopy 8 <+> Time In 8 <*> Procedure Knee Arthroscopy 12/17/19 09:37:09 Counterperson: [id number] Modifier: [id number] 1 <+> Time In 1 <*> Procedure Knee Arthroscopy 2 <+> Time In 2 <*> Procedure Knee Arthroscopy <+> 3 Case Attendee <+> 3 Role Performed <+> 3 Procedure <+> 4 Case Attendee <+> 4 Role Performed <+> 4 Procedure <+> 5 Case Attendee <+> 5 Role Performed <+> 5 Procedure <+> 6 Case Attendee <+> 6 Role Performed <+> 6 Procedure <+> 7 Case Attendee <+> 7 Role Performed <+> 7 Procedure <+> 7 Other Attendee <+> 8 Case Attendee <+> 8 Role Performed <+> 8 Procedure <+> 8 Other Attendee [facility] IntraOp Case Times Entry 1 Patient In Room Time 12/17/19 09:22:00 Out Room Time 12/17/19 09:59:00 Anesthesia Start Time 12/17/19 09:22:00 Stop Time 12/17/19 09:59:00 Anesthesia Ready 12/17/19 09:22:00 Surgery / Procedure Times Start Time 12/17/19 09:36:00 Stop Time 12/17/19 09:57:00 Last Modified By: Esteban Abbasi RN 12/17/19 10:04:48 [facility] IntraOp Case Times Audit 12/17/19 10:04:48 Counterperson: [id number] Modifier: [id number] <+> 1 Out Room Time <+> 1 Stop Time <+> 1 Stop Time 12/17/19 09:37:54 Counterperson: [id number] Modifier: [id number] <+> 1 Start Time [facility] IntraOp Communication Entry 1 Communication To Family/Significant other Comment SURGERY START Communication By Esteban Abbasi, BENJAMIN Date and Time 12/17/19 09:40:00 Last Modified By: Esteban Abbasi RN 12/17/19 09:39:35 [facility] IntraOp Counts Verification Entry 1 Procedure Knee Arthroscopy Count Info Count Type Sponge, Sharps Counts Verification Baseline/pre-procedure Sequence Count Results Not Applicable Counts Performed By Count Performed By Kian Elliott, Elisabetub (Scrub) Tech Count Performed By Esteban Abbasi, RN (RN) Last Modified By: Esteban Abbasi RN 12/17/19 10:06:10 [facility] IntraOp Counts Verification Audit 12/17/19 10:06:10 Counterperson: [id number] Modifier: [id number] 1 <*> Procedure Knee Arthroscopy, Knee Arthroscopy 12/17/19 10:05:53 Counterperson: [id number] Modifier: [id number] 1 <*> Procedure Knee Arthroscopy [facility] IntraOp Counts Final Entry 1 Procedure Knee Arthroscopy Final Count Info Count Type Sponge, Sharps Counts Verification Skin Closure/end of Sequence procedure Count Results Correct, surgeon notified Counts Performed By Count Performed By Kian Elliott Scrub (Scrub) Tech Count Performed By Esteban Abbasi RN (RN) Last Modified By: Esteban Abbasi RN 12/17/19 10:06:11 [facility] IntraOp Counts Final Audit 12/17/19 10:06:11 Counterperson: [id number] Modifier: [id number] 1 <*> Procedure Knee Arthroscopy, Knee Arthroscopy 12/17/19 10:05:55 Counterperson: [id number] Modifier: [id number] 1 <*> Procedure Knee Arthroscopy [facility] IntraOp Departure from OR Entry 1 Integumentary Assessment Integumentary WDL Assessment WDL Transfer/Handoff Transfer to PACU Phase I Handoff Method Bedside/Face to face Post-op Transport Stretcher/Gurney Via Patient Transport Esteban Abbasi RN, Accompanied by MATTEO BOWER, PRISCILLA, Flor Tapia RN Last Modified By: Esteabn Abbasi RN 12/17/19 09:43:33 [facility] IntraOp Dressing and Packing Entry 1 Type Dressing Location RIGHT KNEE Wound Dressing Item ABD dressing pad, Adaptic, Webril, Jeremy Last Modified By: Esteban Abbasi RN 12/17/19 09:56:30 [facility] IntraOp Fire Risk Assessment Entry 1 Fire Info Surgical Site or 0- No Incision Above the Xyphoid Open O2 Source 0- No (Mask or Cannula) Available Ignition 1- Yes (ESU, Laser, Light Source) Fire Risk 1 Assessment Score Fire Score Fire Risk Yes Assessment Complete Fire Risk Esteban Abbasi RN Assessment Verified By Fire Risk 12/17/19 09:36:00 Assessment Verified Date/Time Fire Risk Standard Fire Yes Safety Precautions Followed Last Modified By: Esteban Abbasi RN 12/17/19 09:44:01 [facility] IntraOp General Case Inside Sales Account Manager 1 Case Information OR OR 10 [facility] Case Level 1 Room Verified Yes Wound Class I - Clean Specialty SN Orthopedic Anesthesia Type General ASA Class 3 Diagnosis Preop Diagnosis RIGHT KNEE PAIN Postop Same As Preop No Postop Diagnosis RIGHT KNEE PAIN Last Modified By: Esteban Abbasi RN 12/17/19 09:44:50 [facility] IntraOp Intraoperative Assessment Entry 1 Handoff Reported to Esteban Abbasi RN Handoff Method Other Valid History / Yes Physical in Chart Preoperative Yes Checklist Reviewed/Evaluated Allergies Reviewed Yes Patient is Latex No Sensitive Isolation Not applicable Precautions Noted Level of WDL Consciousness (WDL = Alert, Oriented to Person, Place, and Time) Skin Assessment Yes Verified Present Upon IVs Arrival to OR Last Modified By: Esteban Abbasi RN 12/17/19 09:45:17 [facility] IntraOp Intraoperative Equipment Entry 1 Type Monitoring Equipment Intraop Monitoring Electrocardiogram Three lead placement (ECG) Electrode Placement Antiembolic Devices Scopes Photo/Video Documentation Last Modified By: Esteban Abbasi RN 12/17/19 09:45:35 [facility] IntraOp Medication Admin Entry 1 Entry 2 Medication/Irrigant Marcaine 0.5% 30ml vial Xylocaine 0.5% w/ - [id number] epinephrine 1:200,000 50ml vial - [id number] Combo Med List 1 - Combo Med 1 - Combo Med Time Administered Route of INJECTION INJECTION Administration Dose Dose 30 50 Unit of Measure ml ml Volume 20 ML 10 Administered By Mary Valencia First [place], Crystal, First Assist Assist Procedure Irrigation Irrigant Volume In Irrigant Volume Out Last Modified By: Etseban Abbasi RN Horton, Jamie, RN 12/17/19 09:47:46 12/17/19 09:47:46 [facility] IntraOp Patient Positioning Entry 1 Procedure Knee Arthroscopy Body Position Modified lithotomy Left Arm Position Secured on padded arm board Right Arm Position Secured on padded arm board Left Leg Position Secured in Leg Osborn Right Leg Position Secured in Leg Osborn Feet Uncrossed Yes Pressure Points Yes Checked Positioning Devices Pillows, Safety Strap, Arm(s), Safety Strap, Chest Positioned By MATTEO BOWER CRNA, Kiebler, Rachael A, RN, Mary Valencia First Assist, DRAGAN FLAHERTY MD-ORT Position Verified Positioning Yes Verified by Anesthesia Positioning Yes Verified by Surgeon Last Modified By: Esteban Abbasi RN 12/17/19 10:06:11 General Comments: Mi Media ManzanaTARA LEG OSBORN ON RIGHT LEG; GroundCntrl LEG OSBORN ON LEFT SIDE [facility] IntraOp Patient Positioning Audit 12/17/19 10:06:11 Counterperson: [id number] Modifier: [id number] 1 <*> Procedure Knee Arthroscopy, Knee Arthroscopy 12/17/19 10:05:54 Counterperson: [id number] Modifier: [id number] 1 <*> Procedure 1 <*> Procedure Knee Arthroscopy 1 <*> Procedure Knee Arthroscopy [facility] IntraOp Sign In Entry 1 Patient, Site, Yes Procedure Identified Surgical Consent Yes Confirmed Relevant Surgical Yes Documents Available Surgical Site Yes Marked by person performing procedure Anesthesia Machine Yes Check Completed Medication Checks Yes Completed Allergies Yes Airway Difficult No Airway/Aspiration Risk Difficult Yes Airway/Aspiration Intervention Equipment Available Blood Loss Risk No Blood Loss Yes Intervention Equipment Prepared and Ready Blood Identifiers Not applicable Verified Per Policy Hypothermia Risk Yes Warming Measures Yes Taken Last Modified By: Esteban Abbasi RN 12/17/19 09:52:16 [facility] IntraOp Sign In Audit 12/17/19 09:52:16 Counterperson: [id number] Modifier: [id number] <+> 1 Medication Checks Completed <+> 1 Allergies <+> 1 Difficult Airway/Aspiration Risk <+> 1 Difficult Airway/Aspiration Intervention Equipment Available <+> 1 Blood Loss Risk <+> 1 Blood Loss Intervention Equipment Prepared and Ready <+> 1 Hypothermia Risk <+> 1 Warming Measures Taken <+> 1 Blood Identifiers Verified Per Policy [facility] Intra Op Sign Out Entry 1 RN Confirmation Surgical Yes Procedure(s) Identified Instrument, Sponge Yes and Sharps Counts Correct/Documented Equipment Problems N/A Documented Specimen Labeled N/A Correctly Urinary Catheter N/A Documented in IView [place] Patient Yes Recovery Concerns Reviewed with Anesthesia Provider, Surgeon and RN [place] Patient Yes Management Concerns Reviewed with Anesthesia Provider, Surgeon and RN Safety Checklist Yes Elements Complete? RN Sign Out Esteban Abbasi, BENJAMIN Signature RN Sign Out 12/17/19 09:53:00 Signature Date/Time Plan of Care Outcome - Fire Risk OUTCOME STATEMENT: Goal met Patient is free from injury related to surgical fire Plan of Care Outcome - Pt Positioning OUTCOME STATEMENT: Goal met Absence of signs and symptoms of positioning injury. Plan of Care Outcome - Skin Prep OUTCOME STATEMENT: Goal met Intraoperative care is consistent with measures to prevent infection Plan of Care Outcome - Xray/Images OUTCOME STATEMENT: N/A Absence of observable signs or symptoms of radiation injury Plan of Care Outcome - Counts OUTCOME STATEMENT: Goal met Absence of signs and symptoms of injury related to extraneous objects Last Modified By: Esteban Abbasi RN 12/17/19 09:53:02 [facility] IntraOp Skin Prep Entry 1 Procedure Knee Arthroscopy Prescribed Yes Pre-Surgical Prep Completed Prep Area RIGHT LEG Intraop Prep Integumentary WDL Assessment WDL Prep Agents Chloraprep Prep by Flor Tapia RN Hair Removal Methods No hair removal performed Last Modified By: Esteban Abbasi RN 12/17/19 10:06:11 General Comments: PREPPED TOURNIQUET TO TOES- RIGHT [facility] IntraOp Skin Prep Audit 12/17/19 10:06:11 Counterperson: [id number] Modifier: [id number] 1 <*> Procedure Knee Arthroscopy, Knee Arthroscopy 12/17/19 10:05:55 Counterperson: [id number] Modifier: [id number] 1 <*> Procedure Knee Arthroscopy [facility] IntraOp Surgical Procedures Entry 1 Procedure Knee Arthroscopy Additional RIGHT KNEE ARTHROSCOPY Procedure WITH PARTIAl MEDIAL Description MENISECTOMY Primary Procedure Yes Primary Surgeon DRAGAN FLAHERTY MD-ORT Start 12/17/19 09:36:00 Stop 12/17/19 09:57:00 Anesthesia Type General Specialty SN Orthopedic Wound Class I - Clean Last Modified By: Esteban Abbasi RN 12/17/19 10:06:46 [facility] IntraOp Surgical Procedures Audit 12/17/19 10:06:46 Counterperson: [id number] Modifier: [id number] 1 <*> Procedure Knee Arthroscopy 1 <*> Primary Procedure Yes 1 <*> Primary Surgeon DRAGAN FLAHERTY MD-ORT 1 <*> Specialty 1 <*> Start 12/17/19 09:36:00 1 <*> Stop 12/17/19 09:57:00 1 <*> Wound Class I - Clean 1 <*> Anesthesia Type General 1 <*> Additional Procedure Description RIGHT KNEE ARTHROSCOPY WITH POSSIBLE MEDIAL MENISECTOMY VS REPAIR Entry 2 was deleted. Higher numbered entries shifted one position to fill the gap. <-> 2 Procedure Knee Arthroscopy <-> 2 Primary Procedure Yes <-> 2 Primary Surgeon DRAGAN FLAHERTY MD-ORT <-> 2 Specialty <-> 2 Start 12/17/19 09:36:00 <-> 2 Stop 12/17/19 09:57:00 <-> 2 Wound Class I - Clean <-> 2 Anesthesia Type General <-> 2 Additional Procedure Description RIGHT KNEE ARTHROSCOPY WITH PARTIAL MEDIAL MENISECTOMY [facility] IntraOp Temp Regulation Devices Entry 1 Temp Regulation Temperature Warm blankets Regulation Device Last Modified By: Esteban Abbasi RN 12/17/19 10:08:51 [facility] IntraOp Time Out Entry 1 Procedure to be Knee Arthroscopy Performed Time Out Time Out Pause Time 12/17/19 09:36:00 All activity Yes suspended (unless life threatening emergency) Team Verbally Correct patient Confirms Information identity, Correct side and site are marked, Consent form is present and accurate, Agreement on the procedure to be done, Correct patient position, Relevant images/results properly labeled/appropriately displayed, Confirm antibiotics have been administered, Confirm the skin prep has dried, Confirm prosthesis/implant/devic e is present, Performed in location of procedure after prepped/draped Antibiotic Yes Prophylaxis Administered Or In Progress Within the Last 60 Minutes Beta Brenda N/A Administered Venous N/A Thromboembolism Prophylaxis Required Anticipated Critical Events Surgeon None expected Anesthesia Provider None expected Nursing Assures Sterility of instruments Essential Imaging N/A Labeled and Displayed Last Modified By: Esteban Abbasi RN 12/17/19 10:07:40 [facility] IntraOp Tourniquet Entry 1 Type Pneumatic Serial/Unit Number [id number] Setting 300 Pheumatic Yes Tourniquet Checked Per Protocol Size 34 inches Placement Thigh, right upper Skin Protection - Yes Padded Under Cuff Applied By Mary Valencia First Assist Removed By Mary Valencia First Assist Times Start Time 12/17/19 09:36:00 Stop Time 12/17/19 09:54:00 Last Modified By: Esteban Abbasi RN 12/17/19 10:08:40 Case Comments <None> Finalized By: Flor Tapia RN Document Signatures Signed By: Esteban Abbasi RN 12/17/19 10:09 Flor Tapia RN 12/17/19 11:02 Unfinalized History Date/Time Username Reason for Unfinalizing Freetext Reason for Unfinalizing 12/17/19 10:51 [id number] Correct Documentation documented in this encounter Plan of Treatment Upcoming Encounters Date Type Department Care Team (Late st Contact Info) Description 12/18/2024 9:00 AM EDT Procedure Visit [facility] - [place] [address] [place] [address] 12/23/2024 2:15 PM EDT Office Visit [facility] Orth[facility] - [address] [place] [phone] Nick Rasmussen PA-C [address] [place] [address] 02/11/2025 10:00 AM EDT Office Visit [facility] - [address] [place] [address] Nick Rasmussen PA-C [address] [place] [address] 08/19/2025 9:30 AM EST Appointment [facility] [address] [facility] [address] [place] [address] documented as of this encounter Visit Diagnoses Not on filedocumented in this encounter Care Teams Picture Frames Inspector Relationship Specialty Start Date End Date [facility] [place] [address] PCP - General 09/19/22 10/27/23 Lena Aguilera, ELEMENTARY PRINCIPAL [address] [place] [phone] PCP - General Family Medicine 10/28/23 Nick Rasmussen PA-C [address] [place] [address] Orthopedic Surgery 08/07/23 Nimisha Nuñez PA-C [address] [place] [address] Physician Meeting/Event Planner Orthopedic Surgery 02/05/24 documented as of this encounter
--- OUTSIDE RECORDS SUMMARY | 2024-12-17 10:34 | XMS_ITS | Encounter Summary ---
Author Organization [employer] Address [address] [place] [address] Care Team Providers Care Virtualization Architect Name Role Phone Krystyna Elliott [facility] Primary Care Provider Nick Rasmussen PA-C Unavailable [phone] Lena Aguilera APRN Primary Care Provider [phone] Nimisha Nuñez PA-C Unavailable [phone] Encounter Details Date Type Department Care Team (Late st Contact Info) Description 12/17/2019 Transcribed Document [facility] [address] [place] [address] Provider, Audra Hargrove MD Social History Tobacco Use Types Packs/Day Years Used Date Smoking Tobacco: Never Assessed Comments Unknown Sex and Gender Information Value Date Recorded Sex Assigned at Not on file Legal Sex Female 6:57 PM CDT Gender Identity Not on file Sexual Orientation Not on file documented as of this encounter Miscellaneous Notes * Cerner Conversion Note - Audra Ogden MD - 12/17/2019 11:28 AM EDT Patient Education Materials Follows: Knee Arthroscopy, Care After This sheet gives [...] and water are not available, use hand motor home electrical foreman. ? Change your dressing as told by [...] You may be able to drive after 1?3 weeks. ??? Do not drive or use [...] Leave the ice on for 20 minutes, 2?3 times a day. ??? Move your toes [...] medicines you take. General instructions ??? Take vwmu-zov-uuvtmal and prescription medicines only as told by [...] fried or sweet foods. ? Take an prge-hvt-agmskfl or prescription medicines for constipation. ??? Do [...] leg for 20 minutes at a time, 2?3 times a day. ??? If you were [...] 01/04/2006 Document Revised: 04/30/2018 Document Reviewed: 04/30/2018 [employer] Interactive Patient Education ? 2019 [employer]. documented in this encounter Plan of Treatment Upcoming Encounters Date Type Department Care Team (Late st Contact Info) Description 12/18/2024 9:00 AM EDT Procedure Visit [facility] Neurology [address] [place] [address] 12/23/2024 2:15 PM EDT Office Visit [facility] Orthopedics - [address] [place] [address] [phone] Nick Rasmussen PA-C [address] [place] [address] 02/11/2025 10:00 AM EDT Office Visit [facility] - [address] [place] [address] Nick Rasmussen PA-C [address] [place] [address] 08/19/2025 9:30 AM EST Appointment [address] [place] [address] documented as of this encounter Visit Diagnoses Not on filedocumented in this encounter Care Teams Virtualization Architect Relationship Specialty Start Date End Date [place] [id number] PCP - General 09/19/22 10/27/23 Lena Aguilera, RETREAD BUILDER [address] [place] [address] PCP - General Family Medicine 10/28/23 Nick Rasmussen PA-C [address] [place] [address] Orthopedic Surgery 08/07/23 Nimisha Nuñez PA-C [address] [place] [address] Physician Shipping Clerk Orthopedic Surgery 02/05/24 documented as of this encounter
--- OUTSIDE RECORDS SUMMARY | 2024-12-17 10:34 | XMS_ITS | Encounter Summary ---
Author Organization [employer] Address [address] [place] [address] Care Team Providers Care Farm Equipment Engineer Name Role Phone Krystyna Elliott [facility] Primary Care Provider Nick Rasmussen PA-C Unavailable [phone] Lena Aguilera APRN Primary Care Provider [phone] Nimisha Nuñez PA-C Unavailable [phone] Encounter Details Date Type Department Care Team (Late st Contact Info) Description 12/17/2019 Transcribed Document [facility] [address] [place] [address] Provider, Audra Hargrove MD Social [...] Note - Audra Ogden MD - 12/17/2019 10:59 AM EDT DATE OF PROCEDURE: 12/17/2019 SURGEON: Rell Del Cid MD PREOPERATIVE DIAGNOSIS: Right knee medial meniscus 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 POSTOPERATIVE DIAGNOSIS: Right knee medial meniscus 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 PROCEDURE PERFORMED: Right knee diagnostic arthroscopy with partial medial meniscectomy. POLICE CRIME SCENE TECHNICIAN: Mary Valencia CFA ANESTHESIA: General. ESTIMATED BLOOD LOSS: Minimal. COMPLICATIONS: None. DRAINS: None. CONDITION: Stable to recovery room. OPERATIVE INDICATIONS: Anisa is a very pleasant 54-year-old female with known history of right knee pain refractory to conservative treatment. Much of her pain was on the medial joint line. She had some early degenerative changes. She failed conservative treatment; however, an MRI revealed a complex tear in the posterior horn of the medial meniscus. We discussed options and she elected to proceed with knee arthroscopy. Prior to surgery, risks, benefits, and alternatives were discussed with the patient and informed consent was obtained. OPERATIVE NARRATIVE: I saw Anisa in the preoperative holding area and marked the knee appropriately. All questions were answered. She received prophylactic antibiotics. Once in the operating room, general anesthetic was induced in the supine position. Her right lower extremity was prepped and draped in normal sterile fashion for knee arthroscopy. Initially, we paused for a time-out. We then exsanguinated the leg and elevated the tourniquet to 300 mmHg. I made standard inferomedial and inferolateral arthroscopic portals. There was no real effusion noted. The suprapatellar pouch looked relatively clear. There was minimal synovitis, which I cleaned up with a small 3.5 mm shaver. The gutters were free of pathology. The patella looked quite good. The trochlea looked good in extension, but as we flexed, we saw some grade 1-2 chondromalacia. There was no full-thickness wear and none of the edges were loose. The patella tracked nicely. Next, we moved into the notch. Here, the patient had a normal anterior and posterior cruciate ligament. These probed very solid and there was no sign of any injury. The lateral compartment looked quite good. The articular surfaces looked great. There was a little fraying around the inner edge of the meniscus at the junction of the midportion and the posterior horn. There was also a little fraying of the root. I cleaned these areas up with the shaver, but there was no tear. The meniscus was quite stable. On the medial side, the plateau showed grade 1 changes. There was some grade 2 wear on the extreme medial aspect of the medial femoral condyle, more in the posterior aspect, a little bit on the weightbearing zone. None of this was unstable and required chondroplasty. The majority of the meniscus looked good, but adjacent to the root of the posterior horn, there was a radial tear that extended at least 50% of the thickness of the meniscus with moderate-sized flap. I was able to slide the 3 mm shaver back there and trim out the flap. I then used a straight biter and up thought biter to ellipse out the tear and stabilize the root. After contouring this with a shaver, the remaining rim was quite stable and looked quite good. In conclusion, we lavaged the joint. I found 1 little meniscal fragment in the suprapatellar pouch, which I removed. The rest of the joint looked clear. We ran fluid and then drained extraneous fluid off the knee. Each of the portals were closed with interrupted nylon. We applied local anesthetic around the portal sites intra-articularly. Standard dressing was then applied from toe to thigh. The patient was transferred to the recovery room in stable condition. She tolerated the procedure well without any complications. /[id number] Rell Sylvain Del Cid MD ASC/AQ / ASC / MODL /[id number] documented in this encounter Plan of Treatment Upcoming Encounters Date Type Department Care Team (Late st Contact Info) Description 12/18/2024 9:00 AM EDT Procedure Visit [facility] Neurology - [facility] [address] [place] [address] 12/23/2024 2:15 PM EDT Office Visit [facility] Orthoped[facility] - [place] [facility] [address] [place] [address] Nick Rasmussen PA-C [address] [place] [address] 02/11/2025 10:00 AM EDT Office Visit [facility] Orth[facility] - [place] [facility] [address] [place] [address] Nick Rasmussen PA-C [address] [place] [address] 08/19/2025 9:30 AM EST Appointment [facility] [address] [facility] [address] [place] [address] documented as of this encounter Visit Diagnoses Not on filedocumented in this encounter Care Teams Farm Equipment Engineer Relationship Specialty Start Date End Date [facility] [address] [address] PCP - General 09/19/22 10/27/23 Lena Aguilera APRN [address] [place] [place] [address] PCP - General Family Medicine 10/28/23 Nick Rasmussen PA-C [address] [place] [address] Orthopedic Surgery 08/07/23 Nimisha Nuñez PA-C [address] [place] [address] Physician Scalp Treatment Operator Orthopedic Surgery 02/05/24 documented as of this encounter
--- OUTSIDE RECORDS SUMMARY | 2024-12-17 10:34 | XMS_ITS | Encounter Summary ---
Author Organization [employer] Address [address] [place] [address] Care Team Providers Care Valet Parking Attendant Name Role Phone Nick Rasmussen PA-C Unavailable [phone] Lena Aguilera APRN Primary Care Provider [phone] Nimisha Nuñez PA-C Unavailable [phone] Encounter Details Date Type Department Care Team (Latest Contact Info) Description 12/05/2024 Travel Social History Tobacco Use Types Packs/Day Years [...] Date Vijay rded Speak language other than Prydeinig at home Not on file 07/19/2023 Want [...] on file documented as of this encounter Plan of Treatment Upcoming Encounters Date Type Department Care Team (Late st Contact Info) Description 12/18/2024 9:00 AM EDT Procedure Visit [facility] Neurology - [place] [address] [place] [address] 12/23/2024 2:15 PM EDT Office Visit [facility] Orthopedics - [address] [place] [address] Nick Rasmussen PA-C [address] [place] [address] 02/11/2025 10:00 AM EDT Office Visit [facility] Orthopedics - [address] [place] [address] Nick Rasmussen PA-C [address] [place] [address] 08/19/2025 9:30 AM EST Appointment [facility] [address] [facility] [address] [place] [address] documented as of this encounter Visit Diagnoses Not on filedocumented in this encounter Care Teams Valet Parking Attendant Relationship Specialty Start Date End Date Lena Aguilera APRN [address] [place] [address] PCP - General Family Medicine 10/28/23 Nick Rasmussen PA-C [address] [place] [address] Orthopedic Surgery 08/07/23 Nimisha Nuñez PA-C [address] [place] [address] Physician Vehicle Insurance Agent Orthopedic Surgery 02/05/24 documented as of this encounter
--- OUTSIDE RECORDS SUMMARY | 2024-12-17 10:34 | XMS_ITS | Encounter Summary ---
Author Organization [employer] Address [address] [place] [address] Care Team Providers Care Water Pollution Control Inspector Name Role Phone Krystyna Elliott [facility] Primary Care Provider iNck Rasmussen PA-C Unavailable [phone] Lena Aguilera APRN Primary Care Provider [phone] Nimisha Nuñez PA-C Unavailable [phone] Encounter Details Date Type Department Care Team (Late st Contact Info) Description 12/17/2019 Transcribed Document [facility] [address] [place] [address] Provider, Audra Hargrove MD Social History Tobacco Use Types Packs/Day Years Used Date Smoking Tobacco: Never Assessed Comments Unknown Sex and Gender Information Value Date Recorded Sex Assigned at Not on file Legal Sex Female 6:57 PM CDT Gender Identity Not on file Sexual Orientation Not on file documented as of this encounter Miscellaneous Notes * Cerner Conversion Note - [facility] Beena ProviderMD - 12/17/2019 9:10 AM EDT Pre Procedure Adult Entered On: 12/17/2019 8:16 EDT Performed On: 12/17/2019 8:10 EDT by Paola Lacy RN Height and Weight, Clinical Dosing Height Source : Stated Height Entry Format : [place] Height, Feet : 5 ft(Converted to: 152 cm, 60 Inch) Height, Inches : 3 Inch(Converted to: 0 ft 3 Inch, 7.62 cm) Clinical Height : 160.02 cm Weight Source : Standing scale Weight Entry Format : [place] Clinical Dosing Weight : 101.36 kg Weight, Pounds : 223 lb Body Surface Area (BSA) : 2.03 m2 Body Mass Index : 39.6 kg/m2 (HI) [place] Body Weight : 52 kg Paola Lacy RN - 12/17/2019 8:10 EDT Health Histories Smoking Status : Never (less than 100 in lifetime; none in last 30 days) Smokeless Tobacco Status : Never Paola Lacy RN - 12/17/2019 8:10 EDT Social History (As Of: 12/17/2019 08:16:21 EDT) Tobacco: Smoking Status Never smoker. (Last Updated: 12/17/2016 16:52:07 EDT by Lena Valencia RN) Never (less than 100 in lifetime) Smoking Status. Never Smokeless Tobacco Status. (Last Updated: 12/03/2019 08:36:17 EDT by ROSALINE MCKEON RN) Alcohol: Alcohol Use History Yes. Alcohol Use Frequency Rarely. (Last Updated: 12/17/2016 16:52:14 EDT by Lena Valencia RN) Alcohol Use History Yes. Use in Last 12 Months: Yes. Alcohol Use Frequency Rarely. (Last Updated: 12/03/2019 08:36:17 EDT by ROSALINE MCKEON RN) Substance Abuse: Drug Use Hx: No. Use in Last 12 Months: No. (Last Updated: 12/17/2016 16:52:19 EDT by Lena Valencia RN) Drug Use Hx: No. Use in Last 12 Months: No. (Last Updated: 12/03/2019 08:36:17 EDT by ROSALINE MCKEON RN) Infectious Disease History Has the patient ever been tested for COVID-19? : Yes, Patient stated results Negative Where was the COVID-19 Testing completed? : [facility] Where are the test results? : In EMR Results Date of COVID-19 test known? : Yes Date of COVID-19 Test : 12/15/2019 EDT COVID19 Screening : No Experiencing Infectious Disease Symptoms : No symptoms Physical contact outside [place] in the last 30 days : No Infectious Disease Symptoms Score : 0 Infectious Disease History : Measles, Mumps Active Surveillance Screen Assessment : Patient does not meet any of above criteria Active Surveillance Screen Negative : Yes Exposure to Contagious Illness : No Tuberculosis Symptoms : None Paola Lacy RN - 12/17/2019 8:10 EDT COVID19 PreProcedure Screening Is this an Emergent or Add on Procedure? : No Date of COVID-19 test known? : Yes Date of COVID-19 Test : 12/15/2019 EDT Has patient been isolated since the test : Yes Exposed to COVID19 symptoms since test? : No Paola Lacy RN - 12/17/2019 8:10 EDT Anesthesia/Transfusion History Family History of Anesthesia Reaction : No prior transfusion(s) Blood Transfusion Acceptable to Patient : Yes Transfusion History : Prior anesthesia without reaction Family History of Anesthesia Reaction : None Paola Lacy RN - 12/17/2019 8:10 EDT Functional Assessment Living Situation : Home Patient Lives With : Adult Child/Children, Significant other(s) Persons Assisting Patient at Home : Child/Children Current Daily Living Assistance : None Sensory Deficits : None Mobility Assistance Prior to Admission : Independent JASSO Hx Falls Immediate/Within 3 Months : No Current Home Treatments : None Home Equipment : None Professional Skilled Services : None Special Services and Community Resources : None Paola Lacy RN - 12/17/2019 8:10 EDT [place] Suicide Severity Rating Scale (C-SSRS) CSSRS Past Month Wish to be : No CSSRS Past Month Suicidal Thoughts : No CSSRS Lifetime Suicide Behavior : No Suicide Severity Rating Score : 0 Suicide Severity Rating : No Additional Care Required at this time Paola Lacy RN - 12/17/2019 8:10 EDT Psychosocial History Currently in Unsafe Situation : No Paola Layc RN - 12/17/2019 8:10 EDT Advance Directive Patient has Advance Directive *Q : No, patient refuses Advance Directive information Paola Lacy RN - 12/17/2019 8:10 EDT Spiritual/Cultural Needs Any Spiritual/Cultural Needs or Requests : No Paola Lacy RN - 12/17/2019 8:10 EDT Teaching/Learning Assessment Barriers To Learning : None evident Individuals Taught : Patient Readiness to Learn : Cooperative Baseline Knowledge of Topic : Good Readiness to Learn : Explanation Learning Style Preferences Patient : None Paola Lacy RN - 12/17/2019 8:10 EDT General Info Arrived From : Home Mode of Arrival on Unit : Ambulatory Patient Arrival Date/Time : 12/17/2019 6:50 EDT Legal Guardian : Daughter Want Family/Rep/Phys Notified of Admit : No Emergency Contact #1 : Nick Hernandes Emergency Contact #1 Emergency Contact #1 Relationship : ex- Emergency Contact #2 : Lizeth Hernandes Emergency Contact #2 - Emergency Contact #2 Relationship : dtr- Information Obtained From : Patient Primary Language : Korean Preferred Communication Mode : Verbal Communication Barrier : None Objects to Sharing Info w Family : No Currently Lactating : No Status : Hysterectomy Paola Lacy RN - 12/17/2019 8:10 EDT Vital Measurements Temperature Source : Temporal artery scanning Temperature Mode : Fahrenheit Temperature, Fahrenheit : 97.9 Deg F Clinical Temperature, C : 36.6 Deg C Pulse Method : Pulse Oximetry Peripheral Pulse Rate : 62 bpm Respiratory Rate : 16 Breaths/Min Blood Pressure Location : Arm, right upper Blood Pressure Source : Non-Invasive BP Device Blood Pressure Position : Sitting Systolic Blood Pressure : 171 mmHg (HI) Diastolic Blood Pressure : 83 mmHg Oxygen Saturation : 98 % Oxygen Therapy Mode : Room air Paola Lacy RN - 12/17/2019 8:10 EDT Sleep Apnea Risk Assmt Hx of Obstructive Sleep Apnea Diagnosis : No Snore Loudly : Yes Tired, Fatigued, or Sleepy During Day : No Observed Stopping Breathing During Sleep : No Have/Are Being Treated for Hypertension : Yes BMI Greater Than 35 kg/m2 : Yes Age over 50 Years Old : Yes Neck Circumference Greater Than 40 cm : No Gender Male : No STOP-BANG Sleep Apnea Risk Level Score : 4 Paola Lacy RN - 12/17/2019 8:10 EDT Rashi Scale Rashi Sensory Perception : No impairment Rashi Moisture : Rarely moist Rashi Activity : Walks occasionally Rashi Mobility : No limitation Rashi Nutrition : Adequate Rashi Friction and Shear : No apparent problem Rashi Score : 21 Rashi Contributing Risk Factors : Obesity Paola Lacy RN - 12/17/2019 8:10 EDT Oxygen Therapy Oxygen Therapy Mode : Room air Paola Lacy RN - 12/17/2019 8:10 EDT Pain Assessment Pain Assessment : Initial assessment Pain Scale Goal : 4 Pain Scale Used : 0-10 Scale Location : Knee, right Onset : Constant Quality : Aching Paola Lacy RN - 12/17/2019 8:10 EDT Fall Risk Scales ABCs Fall Injury Risk Identification : None JASSO Hx Falls Immediate/Within 3 Months : No Jasso Secondary Diagnosis : Yes JASSO Use of Ambulatory Aid : None JASSO IV Therapy or IV Access : Yes Jasso Gait/Transferring : Normal, bedrest, immobile Jasso Mental Status : Oriented to own ability Jasso Fall Risk Score : 35 JASSO Fall Scale Risk Level : 25-45 Medium Risk [place] Fall Interventions : Adequate lighting, Bed in low position, Call device within reach, Hourly comfort/safety rounds, Non-slip footwear, Personal items within reach, Reinforced to call for assistance before getting out of bed, Room free of clutter/spills, Upper side-rails up, Wheels locked, Wires/Cords secured Paola Lacy RN - 12/17/2019 8:10 EDT Fall Risk Education Grid Bed Height/Stabilization : Verbalizes understanding Call light use : Verbalizes understanding Eyeglasses Use : Verbalizes understanding Nonskid Footwear Use : Verbalizes understanding Prevention Responsibility Patient : Verbalizes understanding Siderails use/risks : Verbalizes understanding Staff Responsiveness : Verbalizes understanding Paola Lacy RN - 12/17/2019 8:10 EDT Barriers to Learning : None evident Individuals Taught : Patient Readiness to Learn : Cooperative Baseline Knowledge of Topic : Good Teaching Method : Explanation Learning Style Preferences Patient : None Teaching Evaluation : Verbalizes understanding Paola Lacy RN - 12/17/2019 8:10 EDT Education Topics, Day of Surgery DayofSurgery Education Grid Anesthesia/Sedation : Verbalizes understanding Fall Risks : Verbalizes understanding Family Instructions : Verbalizes understanding Infection Risks : Verbalizes understanding IV's : Verbalizes understanding Medication Instructions : Verbalizes understanding Pain Management : Verbalizes understanding Plan of Care : Verbalizes understanding Responsible Adult : Verbalizes understanding Paola Lacy RN - 12/17/2019 8:10 EDT Valuables and Belongings Valuables and Belongings : Clothing, Personal devices Clothing : Common streetwear Clothing Disposition : Sent to locker Personal Device Disposition : Sent to locker Personal Devices : Glasses Paola Lacy RN - 12/17/2019 8:10 EDT Pain Scale Intensity : 3 Paola Lacy RN - 12/17/2019 8:10 EDT Image 4 - Images currently included in the form version of this document have not been included in the text rendition version of the form. [place] Coma [place] Best Motor Response : Obey commands [place] Best Verbal Response : Oriented [place] Eye Opening Response : Spontaneous [place] Coma Score : 15 Paola Lacy RN - 12/17/2019 8:10 EDT Electronically signed by Ranjan [facility] Conversion Laundry Bag Punch Operator Cerner at 11/21/2022 11:16 AM CDT documented in this encounter Plan of Treatment Upcoming Encounters Date Type Department Care Team (Late st Contact Info) Description 12/18/2024 9:00 AM EDT Procedure Visit [facility] Neurology - [place] [address] [place] [address] 12/23/2024 2:15 PM EDT Office Visit [facility] Orthopedics - [address] [place] [address] Nick Rasmussen PA-C [address] [place] [address] 02/11/2025 10:00 AM EDT Office Visit [facility] Orthopedics - [address] [place] [address] Nick Rasmussen PA-C [address] [place] [address] 08/19/2025 9:30 AM EST Appointment [facility] [address] [facility] [address] [place] [address] documented as of this encounter Visit Diagnoses Not on filedocumented in this encounter Care Teams Water Pollution Control Inspector Relationship Specialty Start Date End Date [facility] At [address] [address] PCP - General 09/19/22 10/27/23 Lena Aguilera, KALIN [address] [place] [address] PCP - General Family Medicine 10/28/23 Nick Rasmussen PA-C [address] [place], [place] [id number] Orthopedic Surgery 08/07/23 Nimisha Nuñez PA-C [address] [place], [place] [id number] Physician Scuba Diving Teacher Orthopedic Surgery 02/05/24 documented as of this encounter
--- OUTSIDE RECORDS SUMMARY | 2024-12-17 10:34 | XMS_ITS | Encounter Summary ---
Author Organization [facility] Address [address] [place] [address] Care Team Providers Care Deck Cadet Name Role Phone Krystyna Elliott [facility] Primary Care Provider Nick Rasmussen PA-C Unavailable [phone] Lena Aguilera APRN Primary Care Provider [phone] Nimisha Nuñez PA-C Unavailable [phone] Encounter Details Date Type Department Care Team (Late st Contact Info) Description 12/17/2019 Transcribed Document [facility] [address] [place] [address] Provider, Audra Hargrove MD Social History Tobacco Use Types Packs/Day Years Used Date Smoking Tobacco: Never Assessed Comments Unknown Sex and Gender Information Value Date Recorded Sex Assigned at Not on file Legal Sex Female 6:57 PM CDT Gender Identity Not on file Sexual Orientation Not on file documented as of this encounter Miscellaneous Notes * Cerner Conversion Note - [facility] Beena ProviderMD - 12/17/2019 12:22 PM EDT [facility] [address] [place] [address] ANISA KATZ :1965 Visit Time:12/17/2019 What to do next Your Diagnosis Unilateral primary osteoarthritis, right knee, Unilateral primary osteoarthritis, right knee Instructions From Your Care Team You have a prescription for Scarbro 7.5mg 1 tablet every 6 hours as needed for pain, your next dose is due after 4:30pm refer to discharge orders/orthopedic procedures form for detailed instructions. Follow-Up Appointments Follow Up with DRAGAN FLAHERTY MD-ORT When 12/30/2019 02:15 PM EDT Comments Appointment has been made Where: [place] [address]- Medications What How Much When Instructions Next [...] and water are not available, use hand seam checker. ? Change your dressing as told by [...] medicines you take. General instructions ??? Take lhka-crv-juvtzjx and prescription medicines only as told by [...] fried or sweet foods. ? Take an yjjc-dye-ysftglm or prescription medicines for constipation. ??? Do [...] 01/04/2006 Document Revised: 04/30/2018 Document Reviewed: 04/30/2018 [employer] Interactive Patient Education ?? 2020 [employer]. acetaminophen and hydrocodone (a SEET a MIN oh fen and imer COLLADO done) Hycet, Lorcet, Scarbro, Verdrocet, Vicodin, Xodol, Zamicet What is the [...] may report side effects to FDA at 4-816-TXF-0148. What other drugs will affect acetaminophen and [...] affect acetaminophen and hydrocodone, including prescription and taij-dab-yxdpkzk medicines, vitamins, and herbal products. Not all [...] to ensure that the information provided by [employer]. ('[employer]') is accurate, up-to-date, and complete, but no guarantee is made to that effect. Drug information contained herein may be time sensitive. [employer]School information has been compiled for use by healthcare practitioners and consumers in the [place] and therefore [employer]School does not warrant that uses outside of the [place] are appropriate, unless specifically indicated otherwise. [employer] drug information does not endorse drugs, diagnose patients or recommend therapy. [employer] drug information is an informational resource designed [...] effective or appropriate for any given patient. [employer] does not assume any responsibility for any aspect of healthcare administered with the aid of information [employer] provides. The information contained herein is not intended to cover all possible uses, directions, precautions, warnings, drug interactions, allergic reactions, or adverse effects. If you have questions about the drugs you are taking, check with your doctor, nurse or pharmacist. Copyright 9973-5643 [employer]. Version: 16.01. Revision Date: 07/22/2019. acetaminophen and hydrocodone (a SEET a MIN oh fen and imer droe KOE done) Hycet, Lorcet, Scarbro, Verdrocet, Vicodin, Xodol, Zamicet What is the [...] may report side effects to FDA at 3-734-IZC-7985. What other drugs will affect acetaminophen and [...] affect acetaminophen and hydrocodone, including prescription and ldek-rti-alnnlvl medicines, vitamins, and herbal products. Not all [...] to ensure that the information provided by [employer]. ('[employer]') is accurate, up-to-date, and complete, but no guarantee is made to that effect. Drug information contained herein may be time sensitive. [employer] information has been compiled for use by healthcare practitioners and consumers in the [place] and therefore [employer]School does not warrant that uses outside of the [place] are appropriate, unless specifically indicated otherwise. [employer]'s drug information does not endorse drugs, diagnose patients or recommend therapy. [employer] drug information is an informational resource designed [...] effective or appropriate for any given patient. [employer] does not assume any responsibility for any aspect of healthcare administered with the aid of information [employer] provides. The information contained herein is not intended to cover all possible uses, directions, precautions, warnings, drug interactions, allergic reactions, or adverse effects. If you have questions about the drugs you are taking, check with your doctor, nurse or pharmacist. Copyright 5687-3299 [employer]. Version: 16.01. Revision Date: 07/22/2019. Emergency Awareness [...] Assistance with quitting is available by contacting 0-309-AFIA-NOW. This is a free resource providing counseling, [...] range between ( 1.0 and 7.0 ) [place] #: 0.41 K/uL -- Normal range between ( 0.24 and 0.82 ) [place] #: 0.25 K/uL -- Normal range between ( 0.04 and 0.54 ) [place] %: 7.5 % -- Normal range between [...] was given the opportunity to ask questions. Patient/Keno Attendant Name: Patient/Keno Attendant Signature: Relationship to Patient: Clinician/Hospital Keno Attendant Signature: Date: documented in this encounter Plan of Treatment Upcoming Encounters Date Type Department Care Team (Late st Contact Info) Description 12/18/2024 9:00 AM EDT Procedure Visit [facility] Neurology - [place] [address] [place] [address] 12/23/2024 2:15 PM EDT Office Visit [facility] Orthopedics - [address] [place] [address] Nick Rasmussen PA-C [address] [place] [address] 02/11/2025 10:00 AM EDT Office Visit [facility] Orthopedics - [address] [place] [address] Nick Rasmussen PA-C [address] [place] [address] 08/19/2025 9:30 AM EST Appointment [facility] [address] [place] [address] documented as of this encounter Visit Diagnoses Not on filedocumented in this encounter Care Teams Deck Cadet Relationship Specialty Start Date End Date [facility] [place] [address] PCP - General 09/19/22 10/27/23 Lena Aguilera, MANAGER [employer] [address] [place] [address] PCP - General Family Medicine 10/28/23 Nick Rasmussen PA-C [address] [place] [address] Orthopedic Surgery 08/07/23 Nimisha Nuñez PA-C [address] [place] [address] Physician Nitrocellulose Operator Orthopedic Surgery 02/05/24 documented as of this encounter
--- OUTSIDE RECORDS SUMMARY | 2024-12-17 10:34 | XMS_ITS | Encounter Summary ---
Author Organization [facility] Address [address] [place] [address] Care Team Providers Care Nursing Support Worker Name Role Phone Krystyna Elliott [facility] Primary Care Provider Nick Rasmussen PA-C Unavailable [phone] Lena Aguilera APRN Primary Care Provider [phone] Nimisha Nuñez PA-C Unavailable [phone] Encounter Details Date Type Department Care Team (Late st Contact Info) Description 12/17/2019 Transcribed Document [facility] 1 [place] [address] Provider, Audra Hargrove MD Social [...] 12/17/2019 10:36 AM EDT [facility] PostOp Summary Primary Physician: DRAGAN FLAHERTY MD-ORT Finalized Date/Time: 12/17/19 11:48:29 Pt. Name: ANISA KATZ /Sex: 1965 Female Med Rec #: [id number] Physician: DRAGAN FLAHERTY MD-ORT Financial #: [id number] Pt. Type: O Room/Bed: [facility]/4 Admit/Disch: 12/17/19 04:47:00 - Institution: [facility] PostOp Case Times Entry 1 In PACU II 12/17/19 10:40:00 Ready for PACU II 12/17/19 11:48:00 Discharge Discharge from PACU 12/17/19 11:48:00 II Last Modified By: Erin Orta RN 12/17/19 11:48:22 [facility] Main OR PostOp Case Times Audit 12/17/19 11:48:22 Real Time Operator: SXPOWERS Modifier: HELFEP 1 <+> Ready for PACU II Discharge 1 <*> In PACU II 12/17/19 10:00:00 1 <+> Discharge from PACU II Finalized By: Erin Orta RN Document Signatures Signed By: Erin Orta RN 12/17/19 11:48 Electronically signed by [facility] Conversion Trimming Machine Set Up Operator Cerner at 11/21/2022 11:16 AM CDT documented in this encounter Plan of Treatment Upcoming Encounters Date Type Department Care Team (Late st Contact Info) Description 12/18/2024 9:00 AM EDT Procedure Visit [facility] Neurology [address] [place] [address] 12/23/2024 2:15 PM EDT Office Visit [facility] Orthopedics - [facility] [address] [place] [address] Nick Rasmussen PA-C [address] [place] [address] 02/11/2025 10:00 AM EDT Office Visit [facility] Orthopedics - [place] [facility] [address] [place] [address] Nick Rasmussen PA-C [address] [place] [address] 08/19/2025 9:30 AM EST Appointment [facility] [address] [facility] [address] [place] [address] documented as of this encounter Visit Diagnoses Not on filedocumented in this encounter Care Teams Nursing Support Worker Relationship Specialty Start Date End [place] [facility] [address] PCP - General 09/19/22 10/27/23 Lena Aguilera, [employer] EXCHANGE ADMINISTRATOR [address] [place] [address] PCP - General Family Medicine 10/28/23 Nick Rasmussen PA-C [address] [place] [address] Orthopedic Surgery 08/07/23 Nimisha Nuñez PA-C [address] [place] [address] Physician Guest Services Associate Orthopedic Surgery 02/05/24 documented as of this encounter
--- OUTSIDE RECORDS SUMMARY | 2024-12-17 10:35 | XMS_ITS | Referral Summary ---
Author Organization [facility] Address [address] [place] [address] Care Team Providers Care Salesperson [employer]ets [employer] Pet Supplies Name Role Phone Nick Rasmussen PA-C Unavailable [phone] Lena Aguilera APRN Primary Care Provider [phone] Nimisha Nuñez PA-C Unavailable [phone] Encounters Date Type Department Care Team Description 12/05/2024 Travel 12/05/2024 10:57 AM EDT - 12/05/2024 2:53 PM EDT Emergency [facility] Emergency Department [address] [place] [address] Mayank Patrick MD Acute cystitis with hematuria (Primary Dx); Chest pain, unspecified type Discharge Disposition: Home or Self Care 11/19/2024 9:40 AM EDT - 11/19/2024 11:59 PM EDT Hospital Encounter [facility] Diagnostic Imaging - [address] [place] [address] Nick Rasmussen PA-C Bilateral foot pain Discharge Disposition: Home or Self Care 11/19/2024 9:40 AM EDT - 11/19/2024 11:59 PM EDT Hospital Encounter [facility] Diagnostic Imaging - [address] [place] [address] Nick Rasmussen PA-C Bilateral hand pain Discharge Disposition: Home or Self Care 11/19/2024 9:30 AM EDT Office Visit [facility] Orthopedics - [facility] [address] [place] [address] Nick Rasmussen PA-C Numbness and tingling of both upper extremities (Primary Dx); Bilateral hand pain; Bilateral foot pain; Calcaneal spur of left foot; Primary osteoarthritis of both hands; De Quervain's tenosynovitis, left; Multiple joint pain 11/12/2024 8:30 AM EDT Office Visit [facility] [address] [place] [address] Nick Rasmussen PA-C Primary osteoarthritis of right knee (Primary Dx); Primary osteoarthritis of left knee 10/30/2024 Outside Orders [place] [address] Physical Therapy [address] [place] [address] [place] [address] Lena Aguilera APRN Urinary incontinence (Primary Dx) 09/24/2024 Patient Outreach [address] [address] Rama Jung RN 09/23/[address] [address] Rama Jung, BENJAMIN 09/23/2024 10:12 AM EDT - 09/23/2024 11:59 PM EDT Hospital Encounter [address] [address] Abnormal mammogram Discharge Disposition: Home or Self Care 09/23/2024 9:58 AM EDT - 09/23/2024 10:11 AM EDT Hospital Encounter [address] [address] Abnormal mammogram Discharge Disposition: Home or Self Care from Last 3 Months Allergies Active Allergy Reactions Criticality Noted Date [...] Status post arthroscopy of right knee 06/13/2022 Social History Tobacco Use Types Packs/Day Years [...] Date Vijay rded Speak language other than Faroese at home Not on file 07/19/2023 Want [...] Description 12/18/2024 9:00 AM EDT Procedure Visit [facility] Neurology - [place] [address] [place] [address] 12/23/2024 2:15 PM EDT Office Visit [facility] Orthopedics - [address] [place] [address] Nick Rasmussen PA-C [address] [place] [address] 02/11/2025 10:00 AM EDT Office Visit [facility] Orthopedics - [address] [place] [address] Nick Rasmussen PA-C [address] [place] [address] 08/19/2025 9:30 AM EST Appointment [facility] [address] [facility] [address] [place] [address] Procedures Procedure Name Priority Date/Time Associated Diagnosis [...] 10:50 AM EDT Abnormal mammogram TISSUE EXAM [facility] AP Routine 09/23/2024 10:47 AM EDT Abnormal [...] [facility] [address] [phone] * (ABNORMAL) Urinalysis, Reflex Microscopic and Culture If Indicated (12/05/2024 12:45 PM EDT) Color, UA Yellow 12/05/2024 2:20 PM EDT [facility] Clarity, UA Turbid(A) Clear 12/05/2024 2:20 PM EDT [facility] Specific [place], UA 1.024 1.005 - 1.030 12/05/2024 2:20 [...] EDT 12/05/2024 2:07 PM EDT Yamel Hurt FARM REPORTER URINE ORDERABLES Final Result Performing Organization Address [facility] Co de Phone Number [facility] [address] [place] [address], [facility] [phone] * (ABNORMAL) Urinalysis Microscopic Only (12/05/2024 12:45 [...] URINE ORDERABLES Final Result Performing Organization Address [facility]/ZIP Co de Phone Number [facility] [address] [place] [address], [facility] [phone] * Urine Culture (12/05/2024 12:45 PM EDT) Result Recollect Specimen - 3 or more organisms suggests contamination 12/07/2024 8:[address] [facility] Urine URINE SPECIMEN COLLECTION, CLEAN CATCH / Unknown 12/05/2024 12:45 PM EDT 12/05/2024 2:19 PM EDT Yamel Hurt NP MICROBIOLOGY - GENERAL ORDERAB LES Final Result [facility] [address] [place] [address], [facility] [phone] * XR chest 1 view portable / [...] noted Atypical Lymph flag noted Yamel Blu FARM REPORTER LAB BLOOD ORDERABLES Final Res ult [facility] [address] [phone] * aPTT (12/05/2024 11:30 AM EDT) aPTT 25.9 22.0 - 32.0 seconds 12/05/2024 11:48 AM EDT [facility] Blood Venipuncture / Unknown 12/05/2024 11:30 AM EDT 12/05/2024 11:30 AM EDT [facility] FARM REPORTER LAB BLOOD ORDERABLES Final Res ult [facility] [address] [phone] * Prothrombin time/INR (12/05/2024 11:30 AM EDT) Protime 10.4 9.0 - 12.0 seconds 12/05/2024 11:48 AM EDT [facility] INR 0.95 0.80 - 1.10 12/05/2024 11:48 AM T [facility] Comment: [...] [facility] [address] [phone] * (ABNORMAL) Comprehensive metabolic panel (12/05/2024 11:30 AM EDT) Sodium 138 136 - 146 meq/L 12/05/2024 11:55 AM EDT [facility] Potassium 3.9 3.5 - 5.1 meq/L 12/05/2024 11:55 AM [facility] Chloride 106 102 - 112 meq/L 12/05/2024 11:55 AM T [facility] CO2 26 21 - 32 meq/L 12/05/2024 11:55 AM T [facility] Calcium 9.6 8.5 - 10.1 mg/dL 12/05/2024 11:55 AM T [facility] Glucose 109(H) 74 - 106 mg/dL 12/05/2024 11:55 AM T [facility] BUN 24(H) 7 - 22 mg/dL 12/05/2024 11:55 AM T [facility] Creatinine 1.18(H) 0.55 - 1.02 mg/dL 12/05/2024 11:55 AM [facility] BUN/Creatinine 20 8 - 20 12/05/2024 11:55 AM T [facility] Albumin [...] 0.2 - 1.3 mg/dL 12/05/2024 11:55 AM T [facility] Protein, Total 7.6 6.4 - 8.2 gm/dL 12/05/2024 11:55 AM T [facility] Anion Gap 10 9 - 20 12/05/2024 11:55 AM T [facility] A/G Ratio 1.1 1.1 - 2.5 12/05/2024 11:55 AM T [facility] Globulin 3.7 1.5 - 4.5 g/dL 12/05/2024 11:55 AM [facility] Osmolality Calc 280.3 mOsm/kg 11:55 AM [facility] eGFR (mL/min/1.73m2) 53(L) >=60 mL/min/1.7 3m2 12/05/2024 11:55 AM [facility] Comment:ESTIMATED GFR IS NOT ACCURATE CREATININE CLEARANCE IN PREDICTING GLOMERULAR FILTRATION RATE. ESTIMATED GFR IS NOT APPLICABLE FOR DIALYSIS PATIENTS. Blood Venipuncture / Unknown 12/05/2024 11:30 AM EDT 12/05/2024 11:30 AM EDT us Yamel Hurt NP LAB BLOOD ORDERABLES Final Res ult [facility] [address] [place], [place] [address] [phone] * ECG 12 lead (12/05/2024 11:03 AM EDT) SYSTOLIC BLOOD PRESSURE (MCT) 127 mmHg GE MUSE DIASTOLIC BLOOD PRESSURE (MCT) 77 mmHg GE MUSE VENTRICULAR RATE EKG/MIN 73 BPM GE MUSE ATRIAL RATE (MCT) 73 BPM GE MUSE HI Interval 142 ms GE MUSE QRS-INTERVAL (MSEC) 66 ms GE MUSE QT Interval 394 ms GE MUSE QTC Interval 434 ms GE MUSE P [place] 38 degrees GE MUSE R AXIS (MCT) 67 degrees GE MUSE T Wave [place] 55 degrees GE MUSE [place] Diagnosis Normal sinus rhythm Low voltage QRS Borderline ECG No previous ECGs available Confirmed by Bhumika URBANO SUZANNE ([id number]) on 12/09/2024 10:52:48 AM GE MUSE 12/05/2024 11:0 3 AM EDT 12/09/2024 10:52 AM EDT us Yamel Hurt NP ECG ORDERABLES Final Result GE MUSE * X-ray hand bilateral PA [...] recommendations were phoned to the patient by Bigrit Garcia RN on 09/24/2024 us Lexy Wright [...] patient by Birgit Garcia RN on 09/24/2024 Lexy Wright MD [facility] ORDERABLES Edited Result - Final * Tissue Exam (09/23/2024 10:47 AM EDT) AP RESULT See Note: [facility] Comment: [facility] [address] [place] [address] or [phone] Cj Martinez M.D., Network Contract Manager PATIENT NAME LABORATORY NO. ANISA WEST. [id number] AGE SEX SSN CLIENT REF # [place] [id number] 1965 F [id number] [address] REQUESTING M.D. [place]END[place] [address] LEXY WRIGHT DATE COLLECTED DATE RECEIVED DATE [...] interpretation rendered by Sharda Gracia M.D. at [facility], [address] [place] [address]. GROSS DESCRIPTION: Labeled left 2-3:00 consists of 3 yellow-kaiser cores ranging in length from 0.7 to 2.1 cm, and ranging in diameter from 0.3 to 0.5 cm. Specimens are submitted entirely in 1 block. Cold ischemic time unspecified. Estimated time in formalin greater than 6 hours. BKO REVIEWED, DIAGNOSED AND ELECTRONICALLY SIGNED BY: Sharda Gracia M.D. CPT CODES: 75242 Tissue LEFT BREAST STRUCTURE / Unknown 09/23/2024 10:47 AM EDT Lexy Wright MD PATHOLOGY/CYTOLOGY ORDERABLES F inal Result [facility] [address] [place] [address] * (ABNORMAL) MM digital mammo diagnostic with [...] recommended imaging studies/procedures. At our facility, a alturas marker is positioned over a visible skin [...] family history of breast cancer COMPARISON STUDY: [facility] 08/13/2024 FINDINGS: Craniocaudal and mediolateral oblique images [...] the benefit of computer aided detection (CAD). Krissy Boss MD IMG MAMMOGRAPHY ORDERABLES Final Result from Last 3 Months or Most Recently Relevant to Health Maintenance Insurance [facility] Care Teams Salesperson Pets [employer] Pet Supplies Relationship Specialty Start Date End Date Lena Aguilera APRN [address] [place] [address] PCP - General Family Medicine 10/28/23 Nick Rasmussen PA-C [address] [place] [address] Orthopedic Surgery 08/07/23 Nimisha Nuñez PA-C [address] [place], [place] [id number] Physician Corrections Nurse Orthopedic Surgery 02/05/24
--- OUTSIDE RECORDS SUMMARY | 2024-12-17 10:35 | XMS_ITS | Encounter Summary ---
Author Organization [facility] [employer] [facility] Address [address] [place] [address] Care Team Providers Care Vehicle Service Agent Name Role Phone Nick Rasmussen PA-C Unavailable [phone] Lena Aguilera APRN Primary Care Provider [phone] Nimisha Nuñez PA-C Unavailable [phone] Reason for Referral * Mammography (Routine) - New Request Specialty Diagnoses / Procedures Referred By Kai robins Referred To Contact Radiology Diagnoses Screening mammogram for breast cancer Procedures MM digital mammo screen with phyllis bilateral Lena Aguilera APRN [address] [place] [address] Phone: tel: fax: [facility] [address] [place] [address] Phone: tel: fax: Referral ID Status Reason Start Date Expiration Date V isits Requested Visits Authorized [id number] New Request 08/12/2024 08/12/2025 1 1 Encounter Details Date Type Department Care Team (Late st Contact Info) Description 08/12/[address] [facility] Central Scheduling [address] [place] [address] Lena Aguilera APRN [address] [place] [address] Screening mammogram for breast cancer (Primary Dx) Social History Tobacco Use Types Packs/Day Years [...] Date Vijay rded Speak language other than Slovenian at home Not on file 07/19/2023 Want [...] Description 12/18/2024 9:00 AM EDT Procedure Visit [facility] Neurology - [place] [place] [address] [place] [address] 12/23/2024 2:15 PM EDT Office Visit [facility] Orthopedics - [address] [place] [address] Nick Rasmussen PA-C [address] [place] [address] 02/11/2025 10:00 AM EDT Office Visit [facility] Orthopedics - [address] [place] [address] Nick Rasmussen PA-C [address] [place] [address] 08/19/2025 9:30 AM EST Appointment [facility] [address] [place] [address] documented as of this encounter Results * (ABNORMAL) MM digital mammo screen with phyllis bilateral (08/13/2024 2:01 PM EST) Anatomical Region Laterality Modality Breast Bilateral Mammography 08/15/2024 5:41 PM EST Impressions 08/15/2024 5:51 PM EST Lobulated 10 mm isodense mass 9:00 right breast on baseline mammogram. Focal asymmetry 3:00 left breast middle third BI-RADS CATEGORY: 0 INCOMPLETE: NEEDS ADDITIONAL IMAGING EVALUATION. RECOMMENDED FOLLOW-UP: Left diagnostic mammogram to include left CC and MLO spot compression views, ML view and left breast ultrasound. Right Breast ultrasound. .This report will stand as an order for the additional imaging evaluation A letter including results and recommendations was sent to the patient. Density notification was provided as well. Patient information entered into a reminder system with a target due date for the next mammogram. At our facility, a twin hills marker is positioned over a visible skin lesion and a linear marker is used to indicate a scar. A triangular marker is placed on a self reported palpable finding. Mammography does not detect approximately 10-15% of breast cancers. An annual clinical breast exam by the patient's breast care physician and regular monthly self breast exams by the patient are integral parts of breast cancer screening. A normal mammogram does not completely exclude the presence of breast cancer, especially if there is an abnormal finding on physical exam. When clinically indicated, a biopsy should not be deferred because of a normal mammogram report. : 1965 Images reviewed, interpreted, and dictated by Krissy Boss MD Narrative 08/15/2024 5:51 PM EST BILATERAL SCREENING DIGITAL MAMMOGRAPHY CLINICAL INDICATION: Routine screening maternal and diagnosed with breast cancer. TECHNIQUE: Bilateral CC and MLO views were obtained with 2-D and 3D digital acquisitions. The study was read with the assistance of CAD. COMPARISON: Patient does not remember where her last mammogram was performed and it was done over 10 years ago; no images available for comparison. FINDINGS: No suspicious mass, calcifications or architectural distortion is seen. There are scattered areas of fibroglandular density bilaterally. Approximately 3:00 position left breast middle third there is an oval focal asymmetry; recommend additional evaluation.. Approximately 9:00 position right breast there is a mildly lobulated isodense mass, recommend ultrasound. Lena Aguilera APRN IMG MAMMOGRAPHY ORDERABLES Fin al Result documented in this encounter Visit Diagnoses Diagnosis Screening mammogram for breast cancer- Primary Screening mammogram for breast cancer documented in this encounter Care Teams Vehicle Service Agent Relationship Specialty Start Date End Date Lena Aguilera APRN [address] [place] [address] PCP - General Family Medicine 10/28/23 Nick Rasmussen PA-C [address] [place] [address] Orthopedic Surgery 08/07/23 Nimisha Nuñez PA-C [address] [place] [address] Physician Compliance Coordinator Orthopedic Surgery 02/05/24 documented as of this encounter
--- OUTSIDE RECORDS SUMMARY | 2024-12-17 10:36 | XMS_ITS | Encounter Summary ---
Author Organization [employer] Address [address] [place] [address] Care Team Providers Care Program Director Scouting Name Role Phone Krystyna Elliott [facility] Primary Care Provider Nick Rasmussen PA-C Unavailable [phone] Lena Aguilera APRN Primary Care Provider [phone] Nimisha Nuñez PA-C Unavailable [phone] Encounter Details Date Type Department Care Team (Late st Contact Info) Description 12/03/2019 Transcribed Document [facility] [address] [place] [address] Provider, Audra Hargrove MD Social History Tobacco Use Types Packs/Day Years Used Date Smoking Tobacco: Never Assessed Comments Unknown Sex and Gender Information Value Date Recorded Sex Assigned at Not on file Legal Sex Female 6:57 PM CDT Gender Identity Not on file Sexual Orientation Not on file documented as of this encounter Miscellaneous Notes * Cerner Conversion Note - [facility] Beena ProviderMD - 12/03/2019 9:36 AM EDT PAT Adult Entered On: 12/03/2019 8:40 EDT Performed On: 12/03/2019 8:36 EDT by ROSALINE MCKEON, RN Vital Measurements Temperature Source : Temporal artery scanning Temperature, Fahrenheit : 98.3 Deg F Clinical Temperature, C : 36.8 Deg C Peripheral Pulse Rate : 62 bpm Respiratory Rate : 18 Breaths/Min Systolic Blood Pressure : 142 mmHg (HI) Diastolic Blood Pressure : 81 mmHg Oxygen Saturation : 97 % Oxygen Therapy Mode : Room air ROSALINE MCKEON RN - 12/03/2019 8:36 EDT Height and Weight, Clinical Dosing Height Source : Stated Height Entry Format : [facility] Height, Feet : 5 ft(Converted to: 152 cm, 60 Inch) Height, Inches : 3 Inch(Converted to: 0 ft 3 Inch, 7.62 cm) Clinical Height : 160.02 cm Weight Source : Standing scale Weight Entry Format : [facility] Clinical Dosing Weight : 100.91 kg Weight, Pounds : 222 lb Body Surface Area (BSA) : 2.02 m2 Body Mass Index : 39.4 kg/m2 (SD) [place] Body Weight : 52 kg ROSALINE MCKEON RN - 12/03/2019 8:36 EDT Health Histories Smoking Status : Never (less than 100 in lifetime; none in last 30 days) Smokeless Tobacco Status : Never ROSALINE MCKEON RN - 12/03/2019 8:36 EDT Social History (As Of: 12/03/2019 08:40:28 EDT) Tobacco: Smoking Status Never smoker. (Last [...] patient ever been tested for COVID-19? : No, Patient stated COVID19 Screening : No Experiencing Infectious Disease Symptoms : No symptoms Physical contact outside [place] in the last 30 days : No Infectious Disease Symptoms Score : 0 Infectious Disease History : Measles, Mumps Tuberculosis Symptoms : None ROSALINE MCKEON RN - 12/03/2019 8:36 EDT COVID19 PreProcedure Screening Is this an Emergent or Add on Procedure? : No Has patient been isolated since the test : N/A - PreProcedure, in-person visit Exposed to COVID19 symptoms since test? : N/A - PreProcedure, in-person visit ROSALINE MCKEON RN - 12/03/2019 8:36 EDT Anesthesia/Transfusion History Family History of Anesthesia Reaction : No prior transfusion(s) Transfusion History : Prior anesthesia without reaction Family History of Anesthesia Reaction : None ROSALINE MCKEON RN - 12/03/2019 8:36 EDT Advance Directive Patient has Advance Directive *Q : No, patient refuses Advance Directive information ROSALINE MCKEON RN - 12/03/2019 8:36 EDT [place] Suicide Severity Rating Scale (C-SSRS) CSSRS Past Month Wish to be : No CSSRS Past Month Suicidal Thoughts : No CSSRS Lifetime Suicide Behavior : No Suicide Severity Rating Score : 0 Suicide Severity Rating : No Additional Care Required at this time ROSALINE MCKEON RN - 12/03/2019 8:36 EDT Psychosocial History Currently in Unsafe Situation : No ROSALINE MCKEON RN - 12/03/2019 8:36 EDT Teaching/Learning Assessment Barriers To Learning : None evident Individuals Taught : Patient Readiness to Learn : Cooperative Readiness to Learn : Explanation, Printed materials ROSALINE MCKEON RN - 12/03/2019 8:36 EDT Education Topics, Periop Preadmission Perioperative Education Grid Arrival Time/Place : Verbalizes understanding CHG Preoperative Bathing/Cloths : Verbalizes understanding Infection Control : Verbalizes understanding NPO Status/Directions : Verbalizes understanding Preprocedure Preparations : Verbalizes understanding Preprocedure Tests/Labs : Verbalizes understanding Remove Body Piercings : Verbalizes understanding Responsible Adult : Verbalizes understanding Take/Hold Medications Pre-Procedure : Verbalizes understanding ROSALINE MCKEON RN - 12/03/2019 8:36 EDT General Info Want Family/Rep/Phys Notified of Admit : No Emergency Contact #1 : Nick Heranndes Emergency Contact #1 Emergency Contact #1 Relationship : ex- Emergency Contact #2 : - Emergency Contact #2 Phone Number : - Emergency Contact #2 Relationship : - Primary Language : French Communication Barrier : None ROSALINE MCKEON RN - 12/03/2019 8:36 EDT Rashi Scale Rashi Sensory Perception : No impairment Rashi Moisture : Rarely moist Rashi Activity : Walks frequently Rashi Mobility : No limitation Rashi Nutrition : Excellent Rashi Friction and Shear : No apparent problem Rashi Score : 23 ROSALINE MCKEON RN - 12/03/2019 8:36 EDT Sleep Apnea Risk Assmt Hx of [...] Sleep Apnea Risk Level Score : 4 ROSALINE MCKEON RN - 12/03/2019 8:36 EDT documented in this encounter Plan of Treatment Upcoming Encounters Date Type Department Care Team (Late st Contact Info) Description 12/18/2024 9:00 AM EDT Procedure Visit [facility] Neurology [address] [place] [address] 12/23/2024 2:15 PM EDT Office Visit [facility] Orthopedics - [address] [place] [address] Nick Rasmussen PA-C [address] [place] [address] 02/11/2025 10:00 AM EDT Office Visit [facility] Orthopedics - [address] [place] [address] Nick Rasmussen PA-C [address] [place] [address] 08/19/2025 9:30 AM EST Appointment [facility] [address] [facility] [address] [place] [address] documented as of this encounter Visit Diagnoses Not on filedocumented in this encounter Care Teams Program Director Scouting Relationship Specialty Start Date End Date [facility] [address] [address] PCP - General 09/19/22 10/27/23 Lena Aguilera APRN [address] [place] [address] PCP - General Family Medicine 10/28/23 Nick Rasmussen PA-C [address] [place] [address] Orthopedic Surgery 08/07/23 Nimisha Nuñez PA-C [address] [place], [place] [id number] Physician Stereotyper Orthopedic Surgery 02/05/24 documented as of this encounter
--- OUTSIDE RECORDS SUMMARY | 2024-12-17 10:36 | XMS_ITS | Encounter Summary ---
Author Organization [employer] [facility] Address [address] [place] [address] Care Team Providers Care Territory Manager General Sales Name Role Phone Nick Rasmussen PA-C Unavailable [phone] Lena Aguilera APRN Primary Care Provider [phone] Nimisha Nuñez PA-C Unavailable [phone] Reason for Referral * Consultation (Routine) - New Request Specialty Diagnoses / Procedures Referred By Kai robins Referred To Contact Physical Therapy Diagnoses Urinary incontinence Lena Aguilera APRN [address] [place] [address] Phone: tel: fax: Norah Downing, PT Referral ID Status Reason Start Date Expiration Date Visits Requested Visits Authorized [id number] New Request Specialty Services Required 10/30/2024 10/30/2025 1 1 Encounter Details Date Type Department Care Team (Late st Contact Info) Description 10/30/2024 Outside Orders [place] [address] Physical Therapy [address] [facility] [address] [place] [address] Lena Aguilera APRN [address] [place] [address] Urinary incontinence (Primary Dx) Social History Tobacco Use Types [...] Date Vijay rded Speak language other than Upper Sorbian at home Not on file 07/19/2023 Want [...] Description 12/18/2024 9:00 AM EDT [facility] - [facility] [address] [place] [address] 12/23/2024 2:15 PM EDT Office Visit [facility] Orthopedics - [address] [place] [address] Nick Rasmussen PA-C [address] [place] [address] 02/11/2025 10:00 AM EDT Office Visit [facility] Orthopedics - [address] [place] [address] Nick Rasmussen PA-C [address] [place] [address] 08/19/2025 9:30 AM EST Appointment [facility] [address] [facility] [address] [place] [address] Scheduled Referrals Name Type Priority Associated Diagnoses Orde r Schedule AMB REFERRAL TO PHYSICAL THERAPY EVALUATE, TREAT AND PLAN OF CARE Outpatient Referral Routine Urinary incontinence Expected: 10/30/2024, Expires: 10/30/2025 documented as of this encounter Visit Diagnoses Diagnosis Urinary incontinence- Primary Unspecified urinary incontinence documented in this encounter Care Teams Territory Manager General Sales Relationship Specialty Start Date End Date Lena Aguilera, SEAT COVERER [address] [place] [address] PCP - General Family Medicine 10/28/23 Nick Rasmussen PA-C [address] [place] [address] Orthopedic Surgery 08/07/23 Nimisha Nuñez PA-C [address] [place] [address] Physician Vice President Of Compliance Orthopedic Surgery 02/05/24 documented as of this encounter
--- OUTSIDE RECORDS SUMMARY | 2024-12-17 10:36 | XMS_ITS | Encounter Summary ---
Author Organization [employer] Address [address] [place] [address] Care Team Providers Care Visual Merchandising Manager Name Role Phone Krystyna Elliott [facility] Primary Care Provider Nick Rasmussen PA-C Unavailable [phone] Lena Aguilera APRN Primary Care Provider [phone] Nimisha Nuñez PA-C Unavailable [phone] Encounter Details Date Type Department Care Team (Late st Contact Info) Description 12/03/2019 Transcribed Document [facility] 1 [place] [address] Provider, Audra Hargrove MD Social History Tobacco Use Types Packs/Day Years Used Date Smoking Tobacco: Never Assessed Comments Unknown Sex and Gender Information Value Date Recorded Sex Assigned at Not on file Legal Sex Female 6:57 PM CDT Gender Identity Not on file Sexual Orientation Not on file documented as of this encounter Miscellaneous Notes * Cerner Conversion Note - [facility] Beena ProviderMD - 12/03/2019 9:50 AM EDT Patient: ANISA KATZ Age: 54 Years Sex: Female : 1965 Chief Complaint Right Knee Pain Primary Care Provider NEYDA JOINER (REF), VP CUSTOMER DEVELOPMENT-[employer]AM History of Present Illness This patient is a pleasant 54 yo WF who presents with right knee pain. The pain has been going on for 3 months but has gotten progressively worse. She describes it as a sharp pain. It is now to the point that it is affecting her ADLs. She has tried NSAIDs without relief of her pain. She has not fallen. She has not used an assistive device. She was seen at Dr Del Cid's office and evaluated and she was offered a right Knee Arthroscopy with Possible Medial Meniscectomy vs Repair and agreed to the procedure. Pt denies a h/o DVT/PE. No trouble with anesthesia in the past. No respiratory conditions including COPD/KATT/asthma. Review of Systems Constitutional: Neg for fevers or chills. Eyes: Neg for blurry vision or change in vision. ENT: Neg for sore throat, ear pain, or dizziness. Cardiac: Neg for chest pain or dyspnea on exertion. Respiratory: Neg for shortness of breath. Gastrointestinal: Neg for nausea, vomiting, diarrhea, or constipation. Musculoskeletal: Pos for right knee pain. Neurologic: Neg for headaches or seizures. Psychiatric: Neg for anxiety and depression. Integumentary: Neg for rash. Vital Signs T: 36.8 ??C HR: 62(Peripheral) RR: 18 BP: 142/81 SpO2: 97% HT: 160.02 cm WT: 100.91 kg BMI: 39.4 Oxygen Settings (Last) Oxygen Therapy Mode: Room air (12/03/19 08:36:00) Physical Exam Constitutional: This is a pleasant 54 yo WF in no acute distress. HEENT: Normocephalic, atraumatic. PEERLA. Extraocular muscles intact. Conjunctiva pink without exudate. Oropharynx pink and moist. Neck supple. No JVD. Cardiac: SI, S2. RRR. No M/R/G. Respiratory: Lungs CTA bilaterally. No wheezes, rales, or rhonchi. Abdomen: Soft, nontender, nondistended. Active bowel sounds. No visible masses. Musculoskeletal: Bilateral LE without clubbing, cyanosis or edema. Integumentary: Skin is pink, warm and dry. No rashes. Neurologic: CN II-XII grossly intact. Psychiatric: Judgment and affect appropriate. Assessment/Plan 1. Preoperative Evaluation- Pt underwent preoperative laboratory workup and diagnostic studies. 2. Right Knee Pain- Proceed with surgery as scheduled with Dr Del Cid on 12/17/2019. 3. Hypertension- Continue HCTZ. 4. Hypothyroidism- Continue Synthroid. Problem List/Past Medical History Ongoing At risk for sleep apnea High cholesterol HTN (hypertension) Hypothyroid Historical No qualifying data Procedure/Surgical History Colonoscopy, Hysterectomy. Home Medications (3) Active aspirin hydroCHLOROthiazide 25 mg oral tablet 25 mg = 1 Tab, Oral, Daily levothyroxine 50 mcg (0.05 mg) oral tablet 50 mcg = 1 Tab, Oral, Daily Allergies Bactrim Social History Alcohol Alcohol Use History Yes. Use in Last 12 Months: Yes. Alcohol Use Frequency Rarely. Alcohol Use History Yes. Alcohol Use Frequency Rarely. Substance Abuse Drug Use Hx: No. Use in Last 12 Months: No. Drug Use Hx: No. Use in Last 12 Months: No. Tobacco Never (less than 100 in lifetime) Smoking Status. Never Smokeless Tobacco Status. Smoking Status Never smoker. Family History Pt mother from CHF at 77. Pt father from Renal Cell Carcinoma at 75. Diagnostic Results EKG- NSR, 65 CXR- NAD Lab Results Test Name Test Result Date/Time Sodium Level 137 mmol/L 12/03/2019 08:43 EDT Potassium Level 2.9 mmol/L (Low) 12/03/2019 08:43 EDT Chloride Level 103 mmol/L 12/03/2019 08:43 EDT Carbon Dioxide Level 27 mmol/L 12/03/2019 08:43 EDT Anion Gap 10 12/03/2019 08:43 EDT Glucose Level 124 mg/dL (High) 12/03/2019 08:43 EDT Blood Urea Nitrogen 16 mg/dL 12/03/2019 08:43 EDT Creatinine Level 0.94 mg/dL 12/03/2019 08:43 EDT eGFR >60 mL/min/1.73m2 12/03/2019 08:43 EDT eGFR NonAfrican >60 mL/min/1.73m2 12/03/2019 08:43 EDT Bun/Creatinine 17.0 12/03/2019 08:43 EDT Calcium Level 9.3 mg/dL 12/03/2019 08:43 EDT Protein Total 7.7 Gram/dL 12/03/2019 08:43 EDT Albumin Level 3.8 Gram/dL 12/03/2019 08:43 EDT Globulin 3.9 Gram/dL 12/03/2019 08:43 EDT A/G Ratio 1.0 (Low) 12/03/2019 08:43 EDT Bilirubin Total 0.3 mg/dL 12/03/2019 08:43 EDT Alk Phos 102 Units/Liter 12/03/2019 08:43 EDT AST 22 Units/Liter 12/03/2019 08:43 EDT ALT 37 Units/Liter 12/03/2019 08:43 EDT WBC 5.5 K/uL 12/03/2019 08:43 EDT RBC 4.94 Million/uL 12/03/2019 08:43 EDT Hgb 13.5 Gram/dL 12/03/2019 08:43 EDT Hct 41.0 % 12/03/2019 08:43 EDT MCV 83.0 fL 12/03/2019 08:43 EDT MCH 27.3 pg 12/03/2019 08:43 EDT MCHC 32.9 Gram/dL 12/03/2019 08:43 EDT Platelet Count 208 K/uL 12/03/2019 08:43 EDT MPV 10.5 fL 12/03/2019 08:43 EDT RDW 12.4 % 12/03/2019 08:43 EDT Neut % 67.0 % 12/03/2019 08:43 EDT Neut # 3.66 K/uL 12/03/2019 08:43 EDT Lymph % 19.8 % 12/03/2019 08:43 EDT Lymph # 1.08 K/uL (Low) 12/03/2019 08:43 EDT Will % 7.5 % 12/03/2019 08:43 EDT Will # 0.41 K/uL 12/03/2019 08:43 EDT Eos % 4.6 % 12/03/2019 08:43 EDT Eos # 0.25 K/uL 12/03/2019 08:43 EDT Baso % 0.7 % 12/03/2019 08:43 EDT Baso # 0.04 K/uL 12/03/2019 08:43 EDT Slide Review No 12/03/2019 08:43 EDT IG# 0 x10(3)/uL 12/03/2019 08:43 EDT IG% 0 % 12/03/2019 08:43 EDT documented in this encounter Plan of Treatment Upcoming Encounters Date Type Department Care Team (Late st Contact Info) Description 12/18/2024 9:00 AM EDT Procedure Visit [facility] Neurology - [address] [place] [place] [address] 12/23/2024 2:15 PM EDT Office Visit [facility] Orthopedics - [address] [place] [address] Nick Rasmussen PA-C [address] [place] [address] 02/11/2025 10:00 AM EDT Office Visit [facility] Orthopedics - [address] [place] [address] Nick Rasmussen PA-C [address] [place] [address] 08/19/2025 9:30 AM EST Appointment [facility] [address] [place] [address] documented as of this encounter Visit Diagnoses Not on filedocumented in this encounter Care Teams Visual Merchandising Manager Relationship Specialty Start Date End Date [facility] [place] [address] PCP - General 09/19/22 10/27/23 Lena Aguilera, KALIN [address] [place] [address] PCP - General Family Medicine 10/28/23 Nick Rasmussen PA-C [address] [place] [address] Orthopedic Surgery 08/07/23 Nimisha Nuñez PA-C [address] [place] [address] Physician Pan Puller Orthopedic Surgery 02/05/24 documented as of this encounter
--- OUTSIDE RECORDS SUMMARY | 2024-12-17 10:36 | XMS_ITS | Encounter Summary ---
Author Organization [employer] Address [address] [place] [address] Care Team Providers Care Final Assembly And Packing Supervisor Name Role Phone Krystyna Elliott [facility] Primary Care Provider Nick Rasmussen PA-C Unavailable [phone] Lena Aguilera APRN Primary Care Provider [phone] Nimisha Nuñez PA-C Unavailable [phone] Encounter Details Date Type Department Care Team (Late st Contact Info) Description 12/17/2019 Transcribed Document [facility] 1 [place] [address] Provider, Audra Hargrove MD Social [...] 12/17/2019 10:36 AM EDT [facility] Main OR PACU Summary Primary Physician: DRAGAN FLAHERTY MD-ORT Finalized Date/Time: 12/17/19 10:50:47 Pt. Name: ANISA KATZ /Sex: 1965 Female Med Rec #: [id number] Physician: DRAGAN FLAHERTY MD-ORT Financial #: [id number] Pt. Type: O Room/Bed: [facility]/4 Admit/Disch: 12/17/19 04:47:00 - Institution: [facility] Main OR PACU Case Times Entry 1 In PACU I 12/17/19 10:00:00 Ready for PACU 12/17/19 10:40:00 Discharge Discharge from PACU 12/17/19 10:40:00 I Last Modified By: Lena Méndez RN 12/17/19 10:50:36 Finalized By: Lena Méndez, RN Document Signatures Signed By: Lena Méndez RN 12/17/19 10:50 documented in this encounter Plan of Treatment Upcoming Encounters Date Type Department Care Team (Late st Contact Info) Description 12/18/2024 9:00 AM EDT Procedure Visit [facility] Neurology - [facility] [address] [place], [place] [address] [place] [address] 12/23/2024 2:15 PM EDT Office Visit [facility] Orthopedics - [facility] [address] [place] [address] Nick Rasmussen PA-C [address] [place] [address] 02/11/2025 10:00 AM EDT Office Visit [facility] Orthoped[facility] - [place] [facility] [address] [place] [address] Nick Rasmusesn PA-C [address] [place] [address] 08/19/2025 9:30 AM EST Appointment [facility] Breast [facility] [address] B[facility] At [facility] [address] [place] [address] documented as of this encounter Visit Diagnoses Not on filedocumented in this encounter Care Teams Final Assembly And Packing Supervisor Relationship Specialty Start Date End Date [place] [address] [address] PCP - General 09/19/22 10/27/23 Lena Aguilera APRN [address] [place] [address] PCP - General Family Medicine 10/28/23 Nick Rasmussen PA-C [address] [place], [place] [address] Orthopedic Surgery 08/07/23 Nimisha Nuñez PA-C [address] [place] [address] Physician Principal Systems Architect Orthopedic Surgery 02/05/24 documented as of this encounter
--- OUTSIDE RECORDS SUMMARY | 2024-12-17 10:36 | XMS_ITS | Encounter Summary ---
Author Organization [employer] Address [address] [place] [address] Care Team Providers Care Forest Economist Name Role Phone Krystyna Elliott [facility] Primary Care Provider Nick Rasmussen PA-C Unavailable [phone] Lena Aguilear APRN Primary Care Provider [phone] Nimisha Nuñez PA-C Unavailable [phone] Encounter Details Date Type Department Care Team (Late st Contact Info) Description 12/17/2019 Transcribed Document [facility] 1 [place] [address] Provider, Audra Hargrove MD Social [...] 12/17/2019 10:36 AM EDT [facility] Main OR PreOp Summary Primary Physician: DRAGAN FLAHERTY MD-ORT Finalized Date/Time: 12/17/19 10:46:48 Pt. Name: ANISA KATZ /Sex: 1965 Female Med Rec #: [id number] Physician: DRAGAN FLAHERTY MD-ORT Financial #: [id number] Pt. Type: O Room/Bed: [facility]/4 Admit/Disch: 12/17/19 04:47:00 - Institution: [facility] PreOp Case Times Entry 1 In Preop 12/17/19 06:50:00 Ready for Holding n/a Room Patient Ready for 12/17/19 08:36:00 Surgery Patient Out of Preop 12/17/19 09:30:00 Patient Out of n/a Holding Room Last Modified By: ELIGIO SCALES 12/17/19 10:46:47 [facility] PreOp Case Times Audit 12/17/19 10:46:47 [employer]: SHALINI Modifier: [email or web address] <+> 1 Patient Out of Preop 12/17/19 08:36:21 [employer]: SHALINI Modifier: GINNYAR <+> 1 Patient Ready for Surgery Finalized By: ELIGIO SCALES Document Signatures Signed By: ELIGIO SCALES 12/17/19 10:46 documented in this encounter Plan of Treatment Upcoming Encounters Date Type Department Care Team (Late st Contact Info) Description 12/18/2024 9:00 AM EDT Procedure Visit [facility] Neurology - [address] [place] [address] 12/23/2024 2:15 PM EDT Office Visit [facility] Orthopedics - [address] [place] [address] Nick Rasmussen PA-C [address] [place] [address] 02/11/2025 10:00 AM EDT Office Visit [facility] Orthopedics - [address] [place] [address] Nick Rasmussen PA-C 8 [place] [address] 08/19/2025 9:30 AM EST Appointment [facility] [address] [facility] [address] [place] [address] documented as of this encounter Visit Diagnoses Not on filedocumented in this encounter Care Teams Forest Economist Relationship Specialty Start Date End Date Lexi [facility] [place] [address] PCP - General 09/19/22 10/27/23 Lena Aguilera, FURNACE ROOM SUPERVISOR [address] [place] [address] PCP - General Family Medicine 10/28/23 Nick Rasmussen PA-C [address] [place] [address] Orthopedic Surgery 08/07/23 Nimisha Nuñez PA-C [address] [place] [address] Physician Graphics Edit Technician Orthopedic Surgery 02/05/24 documented as of this encounter
--- NOTE | 2024-12-17 13:30 | ECG_ITS ---
APPROVED REPORT Exam: Resting ECG HR:68 bpm ECG Measurements Heart Rate 68 AXES AZ 160 P 7 QRSd 78 QRS 50 QT 403 T 75 QTc 421 Conclusion SINUS RHYTHM LOW QRS VOLTAGE IN PRECORDIAL LEADS [QRS DEFLECTION < 1.0 mV IN CHEST LEADS] POSSIBLE ANTERIOR MYOCARDIAL INFARCTION , PROBABLY OLD [30 ms Q WAVE IN V3/V4, OR R < 0.2 mV IN V4] BORDERLINE ECG UNCONFIRMED REPORT Electronically signed by : Carl Le MD 12/19/2024 14:57:00
== END 2024-12-17 23:59 | disposition home or self-care (01) ==
PROVIDERS: PCP Family Medicine; Visit Provider Family Medicine
DX: R94.31 Abnormal electrocardiogram [ECG] [EKG] (principal); J18.9 Pneumonia, unspecified organism; Z76.89 Persons encountering health services in other specified circumstances
CPT/HCPCS: 71046; 87086; 87210; 93005; 93270

== ENCOUNTER 2024-12-30 09:13 | Outpatient (CLI) | payer OTHER, SELFPAY ==
--- OUTSIDE RECORDS SUMMARY | 2024-11-12 08:30 | XMS_ITS | Encounter Summary ---
Author Organization [employer] ([place], [place], [place], [place]) Address [address] [place] [address] Care Team Providers Care Control Specialist Name Role Phone Nick Rasmussen PA-C Unavailable [phone] Lena Aguilera APRN Primary Care Provider [phone] Nimisha Nuñez PA-C Unavailable [phone] Reason for Visit * Reason Comments Injections Bilateral knee Encounter Details Date Type Department Care Team (Late st Contact Info) Description 11/12/2024 8:30 AM EDT Office Visit [facility] Orthopedics - [address] [place] [address] Nick Rasmussen PA-C [address] [place] [address] Primary osteoarthritis of right knee (Primary Dx); Primary osteoarthritis of left knee Social History Tobacco Use Types Packs/Day Years Used Date Smoking Tobacco: Never Smokeless Tobacco: Never Alcohol Use Standard Drinks/Week Comments Never 0 (1 standard drink = 0.6 oz pur e alcohol) Family and Community Support Answer Noam e Recorded Help with Day to Day Activities Not on file 07/19/2023 Feeling Lonely or Isolated Not on file 07/19 Educational Attainment Answer Date Vijay rded Speak language other than Bhutanese at home Not on file 07/19/2023 Want help with school or training Not on file 07/19/2023 Substance Use Answer Date Recorded Used prescription meds for non-medical reasons N ot on file 07/19/2023 Used illegal drugs past 12 months Not on file 07/19/2023 Comments Unknown Sex and Gender Information Value Date Recorded Sex Assigned at Not on file Legal Sex Female 6:57 PM CDT Gender Identity Not on file Sexual Orientation Not on file documented as of this encounter Last Filed Vital Signs Vital Sign Reading Time Taken Comments Blood Pressure 133/82 11/12/2024 8:29 AM EDT Pulse 70 11/12/2024 8:29 AM EDT Temperature - - Respiratory Rate - - Oxygen Saturation - - Inhaled Oxygen Concentration - - Weight 88.5 kg (195 lb) 11/12/2024 8:29 AM EDT Height 160 cm (5' 3 ) 11/12/2024 8:29 AM EDT Body Mass Index 34.54 11/12/2024 8:29 AM EDT documented in this encounter Progress Notes * Nick Rasmussen PA-C - 11/12/2024 8:30 AM EDT NAME: Anisa Hernandes CSN: [id number] : 1965 PCP: Lena Aguilera APRN REASON FOR VISIT Injections (Bilateral knee) HPI Anisa Hernandes is a 59 y.o. female who presents today for follow-up injections in bilateral Knees Patient's previous injection date: 08/13/24 Previous injection lasted around 3 months Patient rates their pain today as 2 out of 10 Patient denies any new injuries or issues Patient would like to proceed with injections today Patient verbalized consent for today's procedure and answered the following questions as listed below: Are you Diabetic: no Allergy to Iodine/Betadine/Shell fish: no Allergy to latex adhesive: no Allergy to steroids: no Allergy to lidocaine: no Recent Covid vaccine within the last two weeks: no Currently taking antibiotics: no Current infections or wounds: no Recent fractures or scheduled surgeries: no CURRENT MEDICATIONS Current Outpatient Medications Medication Instructions allopurinoL (ZYLOPRIM) 100 mg, oral, Daily Fish OiL capsule 1,000 mg, oral, 2 times daily levothyroxine (SYNTHROID) 75 mcg, oral, Daily lisinopril-hydroCHLOROthiazide (PRINZIDE,ZESTORETIC) 20-25 mg per tablet 1 tablet, oral, Daily metFORMIN (GLUCOPHAGE) 500 mg, oral, 3 times daily methocarbamoL (ROBAXIN) 750 mg, oral, 3 times daily ALLERGIES Allergies Allergen Reactions Sulfamethoxazole-Trimethoprim PAST MEDICAL/SURGICAL HISTORY Past Medical History: Diagnosis Date Gout Hyperlipemia Hypertension Prediabetes Thyroid disease Past Surgical History: Procedure Laterality Date COLONOSCOPY,POLYPECTOMY N/A 10/28/2023 Procedure: COLONOSCOPY, WITH POLYPECTOMY; Surgeon: Stephani Romero MD; Location: [facility]; Service: Gastroenterology; Laterality: N/A; HYSTERECTOMY KNEE SURGERY NE COLON CA SCRN NOT HI RSK IND 10/28/2023 SOCIAL HISTORY Social History Tobacco Use Smoking status: Never Smokeless tobacco: Never Vaping Use Vaping status: Never Used Substance Use Topics Alcohol use: Never Drug use: Never FAMILY HISTORY Family History Problem Relation Name Age of Onset Heart disease Other High blood pressure Other Gout Other Kidney disease Other Cancer Other REVIEW OF SYSTEMS General: No recent fever or chills, no recent weight loss or weight gain, no insomnia HEENT: No change in vision, no glasses/contacts, no hearing loss, no tinnitus, no vertigo, no congestion/sinus issues CVS: No chest pain, no palpitations, no edema, no varicose veins Resp: No dyspnea, no wheezing, no cough, no hemoptysis GI: No dysphagia, no nausea, no vomiting, no heart burn, no constipation, no diarrhea : No dysuria, no hematuria, no nocturia, no history of chronic UTI Musculoskeletal: See HPI Derm: No rash, no abrasions, no skin discoloration, no history or MRSA Neuro: No headaches, no seizures, no stroke, no tremors, no muscle weakness, no difficulty walking,no numbness/tingling, no neuropathy Endo: No cold/heat intolerance Heme: No abnormal bruising or bleeding Psych: No depression, no anxiety, no fatigue, no mood swings. Scribe Attestation: IDenice CMA acted as a scribe and transcribed components of the current encounter under the direction of the Attending Provider. I have not been involved in providingany clinical treatments or patient care. Electronically Signed, Denice Ruiz CMA OBJECTIVE Vitals: 11/12/24 0829 BP: 133/82 Pulse: 70 Weight: 88.5 kg (195 lb) Height: 1.6 m (5' 3 ) Physical Exam Vitals reviewed. Constitutional: Appearance: Normal appearance. HENT: Head: Normocephalic and atraumatic. Skin: General: Skin is warm and dry. Capillary Refill: Capillary refill takes less than 2 seconds. Findings: No bruising or erythema. Neurological: Mental Status: She is alert and oriented to person, place, and time. Gait: Gait normal. Psychiatric: Mood and Affect: Mood normal. Behavior: Behavior normal. Bilateral Knee Exam Appearance: No swelling, no warmth, no erythema, no ecchymosis, no deformity in left knee, +varus deformity right knee Tenderness to palpation: Medial joint line ROM: 0-130 degrees left knee and 0-120 degrees right knee, +crepitus bilaterally Strength: 4/5 quad strength Testing: -Varus & -Valgus stress Neurovascular: NVI, -Homans, calf soft & nontender, normal tibialis posterior pulse. Sensation intact Skin: Normal appearance with no discoloration or wounds. ASSESSMENT Problem List Items Addressed This Visit Musculoskeletal and Integument Primary osteoarthritis of left knee Relevant Medications methylPREDNISolone acetate (DEPO-MEDROL) injection 80 mg (Completed) (Start on 11/12/2024 9:00 AM) lidocaine (XYLOCAINE) injection 1% (Completed) (Start on 11/12/2024 9:00 AM) lidocaine (XYLOCAINE) injection 1% (Completed) (Start on 11/12/2024 9:00 AM) methylPREDNISolone acetate (DEPO-MEDROL) injection 80 mg (Completed) (Start on 11/12/2024 9:00 AM) Other Relevant Orders Arthrocentsis aspiration/inj major jt/bursa w/o us Arthrocentsis aspiration/inj major jt/bursa w/o us Primary osteoarthritis of right knee - Primary Relevant Medications methylPREDNISolone acetate (DEPO-MEDROL) injection 80 mg (Completed) (Start on 11/12/2024 9:00 AM) lidocaine (XYLOCAINE) injection 1% (Completed) (Start on 11/12/2024 9:00 AM) lidocaine (XYLOCAINE) injection 1% (Completed) (Start on 11/12/2024 9:00 AM) methylPREDNISolone acetate (DEPO-MEDROL) injection 80 mg (Completed) (Start on 11/12/2024 9:00 AM) Other Relevant Orders Arthrocentsis aspiration/inj major jt/bursa w/o us Arthrocentsis aspiration/inj major jt/bursa w/o us PLAN Return in about 3 months (around 02/12/2025) for Repeat bilateral knee injections . 1 week follow-up NC bilateral foot/hand pain with x-rays; possible EMG and rheumatoid panel due to multiple joint pain Ice affected joint Watch for signs of infection, return to clinic if symptoms appear Return to clinic sooner if new symptoms occur as discussed or if symptoms worsen Injections performed today, as noted below PROCEDURE Diabetes education: No Steroid Injection: Bilateral Knee Injections: Indication: bilateral Knee pain Consent: The risks, benefits, and alternatives of procedure were discussed with the patient including but not limited to pain, infection, and bleeding. All questions were answered and informed consent was obtained. Prep: The injection site was identified and confirmed with patient as correct extremity. The site was prepped in a standard sterile manner. The skin overlying the area was anesthetized with ethyl chloride. Procedure: The needle was inserted into above injection site, then was injected with 1cc of 1% lidocaine and 1cc of 80mg Depo-medrol Post-procedure: The patient tolerated the procedure well without complications. Post injection instructions were given and questions were answered to the best of my knowledge. Adverse effects: None. Injection was performed by: Nick Rasmussen PA-C Scribe Attestation: Denice Coleman CMA acted as a scribe and transcribed components of the current encounter under the direction of the Attending Provider. I have not been involved in providingany clinical treatments or patient care. Electronically Signed, Denice Ruiz CMA I, Robert Coleman, PA-C attest that I have examined the above patient. I have dictated the exam, diagnosis, and plan to the scribe listed above to be transcribed into this document. I have supplemented the above documentation as warranted. I attest that I have reviewed the above documentation in its entirety and concur. Electronically SignedNick PA-C 11/12/2024 8:37 AM EDT Leyda Young: Cheryl FINCH / GILL[facility] is undergoing an EHR transition as of this date of service. There may be a delay in uploading older paper and EHR chart data to this new system. The above encounter has been documented to the best of the provider's working knowledge of the EHR in conjunction with medical information provided by the patient (and/or the patient's family member). documented in this encounter Plan of Treatment Upcoming Encounters Date Type Department Care Team (Late st Contact Info) Description 02/11/2025 10:00 AM EDT Office Visit [facility] Orthopedics - [address] [place] [address] Nick Rasmussen PA-C [address] [place] [id number] 08/19/2025 9:30 AM EST Appointment [facility] [address] [facility] [address] [place] [address] Scheduled Orders Name Type Priority Associated Diagnoses Orde r Schedule Arthrocentsis aspiration/inj major jt/bursa w/o us Procedures Routine Primary osteoarthritis of right knee Primary osteoarthritis of left knee Ordered: 11/12/2024 Arthrocentsis aspiration/inj major jt/bursa w/o us Procedures Routine Primary osteoarthritis of right knee Primary osteoarthritis of left knee Ordered: 11/12/2024 documented as of this encounter Visit Diagnoses Diagnosis Primary osteoarthritis of right knee- Primary Primary osteoarthritis of left knee documented in this encounter Administered Medications Inactive Administered Medications - up to 3 most recent administrations Medication Order MAR Action Action Date Dose Rate Site lidocaine (XYLOCAINE) injection 1% 1 mL Once, intra-articular, On Rachael 11/12/24 at 0900, For 1 doseIndications:Primary osteoarthritis of right knee,Primary osteoarthritis of left knee Given 11/12/2024 8:32 AM EDT 1 mL lidocaine (XYLOCAINE) injection 1% 1 mL Once, intra-articular, On Rachael 11/12/24 at 0900, For 1 doseIndications:Primary osteoarthritis of right knee,Primary osteoarthritis of left knee Given 11/12/2024 8:31 AM EDT 1 mL methylPREDNISolone acetate (DEPO-MEDROL) injection 80 mg 80 mg Once, intra-articular, On Rachael 11/12/24 at 0900, For 1 doseIndications:Primary osteoarthritis of right knee,Primary osteoarthritis of left knee Given 11/12/2024 8:32 AM EDT 80 mg methylPREDNISolone acetate (DEPO-MEDROL) injection 80 mg 80 mg Once, intra-articular, On Rachael 11/12/24 at 0900, For 1 doseIndications:Primary osteoarthritis of right knee,Primary osteoarthritis of left knee Given 11/12/2024 8:32 AM EDT 80 mg documented in this encounter Care Teams Control Specialist Relationship Specialty Start Date End Date Lena Aguilera, LABOR RELATIONS SPECIALIST [address] [place] [id number] PCP - General Family Medicine 10/28/23 Nick Rasmussen PA-C [address] [place] [address] Orthopedic Surgery 08/07/23 Nimisha Nuñez PA-C [address] [place] [address] Physician Manager Office Services Orthopedic Surgery 02/05/24 documented as of this encounter
--- OUTSIDE RECORDS SUMMARY | 2024-11-19 09:30 | XMS_ITS | Encounter Summary ---
Author Organization [employer] ([place], [place], [place], [place]) Address [address] [place] [address] Care Team Providers Care Interface Engineer Name Role Phone Nick Rasmussen PA-C Unavailable [phone] Lena Aguilera APRN Primary Care Provider [phone] Nimisha Nuñez PA-C Unavailable [phone] Reason for Referral * Other (Routine) - Closed Specialty Diagnoses / Procedures Referred By Kai robins Referred To Contact Neurology Diagnoses Numbness and tingling of both upper extremities Procedures EMG W/ NCS Nick Rasmussen PA-C [address] [place] [address] Phone: tel: fax: Sharda Dexter MD [address] [facility] [address] [place] [address] Phone: tel: fax: Referral ID Status Reason Start Date Expiration Date Visits Re quested Visits Authorized [id number] Closed 11/19/2024 11/19/2025 1 1 * Diagnostic X-Ray (Routine) - Closed Specialty Diagnoses / Procedures Referred By Contflakita t Referred To Contact Radiology Diagnoses Bilateral foot pain Procedures XR FOOT BILATERAL 3 VIEW Weight Bearing Nick Rasmussen PA-C [address] [place] [address] Phone: tel: fax: [facility] Diagnostic Imaging [address] [address] Phone: tel: fax: Referral ID Status Reason Start Date Expiration Date Visits Re quested Visits Authorized [id number] Closed 11/19/2024 11/19/2025 1 1 * Diagnostic X-Ray (Routine) - Closed Specialty Diagnoses / Procedures Referred By Kai t Referred To Contact Radiology Diagnoses Bilateral hand pain Procedures X-ray hand bilateral PA lateral and oblique Nick Rasmussen PA-C [address] [place] [address] Phone: tel: fax: [facility] Diagnostic Imaging [address] [address] Phone: tel: fax: Referral ID Status Reason Start Date Expiration Date Visits Re quested Visits Authorized [id number] Closed 11/19/2024 11/19/2025 1 1 Reason for Visit * Reason Comments Bilateral foot and hand pain Encounter Details Date Type Department Care Team (Late st Contact Info) Description 11/19/2024 9:30 AM EDT Office Visit [facility] Orthopedics - [place] [id number] Nick Rasmussen PA-C [address] [place] [address] Numbness and tingling of both upper [...] Date Vijay rded Speak language other than Norwegian at home Not on file 07/19/2023 Want [...] 9:30 AM EDT NAME: Anisa Hernandes CSN: [id number] : 1965 PCP: Lena Aguilera APRN REASON FOR VISIT Bilateral foot and hand pain HPI Anisa Hernandse is a right hand dominant 59 y.o. 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 [...] WITH POLYPECTOMY; Surgeon: Stephani Romero MD; Location: [facility]; Service: Gastroenterology; Laterality: N/A; HYSTERECTOMY KNEE SURGERY MD COLON CA SCRN NOT HI RSK IND [...] 4/5 Flexion and Extension at wrist; 4/5 hotel or motel receptionist strength Neurovascular: capillary refill WNL, 2+ Radial [...] squeeze test of tibial and fibula, - Elmo test, -too many toes sign, - Metatarsal [...] squeeze test of tibial and fibula, - Elmo test, -too many toes sign, - Metatarsal squeeze test, - Calcaneal squeeze, - crepitus along plantar fascia Neurovascular: NVI, -Homans Skin: normal appearance with no discoloration or wounds IMAGING/OUTSIDE REPORTS Ordered and reviewed images performed at [facility] today: X-ray hand bilateral PA lateral [...] Description 02/11/2025 10:00 AM EDT Office Visit [facility] Orthopedics - [address] [place] [address] Nick Rasmussen PA-C [address] [place] [address] 08/19/2025 9:30 AM EST Appointment [facility] [address] [facility] [address] [place] [address] Scheduled Orders Name Type Priority [...] pain documented in this encounter Care Teams Interface Engineer Relationship Specialty Start Date End Date Lena Aguilera, SUPERVISOR [employer] [address] [place] [address] PCP - General Family Medicine 10/28/23 Nick Rasmussen PA-C [address] [place] [address] Orthopedic Surgery 08/07/23 Nimisha Nuñez PA-C [address] [place] [address] Physician Inspector Precision Orthopedic Surgery 02/05/24 documented as of this encounter
--- OUTSIDE RECORDS SUMMARY | 2024-11-19 09:40 | XMS_ITS | Encounter Summary ---
Author Organization [employer] ([place], [place], [place], [place]) Address [address] [place] [address] Care Team Providers Care Barrel Raiser Name Role Phone Nick Rasmussen PA-C Unavailable [phone] Lena Aguilera APRN Primary Care Provider [phone] Nimisha Nuñez PA-C Unavailable [phone] Reason for Referral * Diagnostic X-Ray (Routine) - Closed Specialty Diagnoses / Procedures Referred By Contac t Referred To Contact Radiology Diagnoses Bilateral foot pain Procedures XR FOOT BILATERAL 3 VIEW Weight Bearing Nick Rasmussen PA-C [address] [place] [address] Phone: tel: fax: [facility] Diagnostic Imaging - [facility] [address] [facility] [address] [place] [address] Phone: tel: fax: Referral ID Status Reason Start Date Expiration Date Visits Re quested Visits Authorized [id number] Closed 11/19/2024 11/19/2025 1 1 Reason for Visit * Diagnostic X-Ray (Routine) - Closed Specialty Diagnoses / Procedures Referred By Contac t Referred To Contact Radiology Diagnoses Bilateral foot pain Procedures XR FOOT BILATERAL 3 VIEW Weight Bearing Nick Rasmussen PA-C [address] [place] [address] Phone: tel: fax: [facility] Diagnostic Imaging - [address] [place] [address] Phone: tel: fax: Referral ID Status Reason Start Date Expiration Date Visits Re quested Visits Authorized [id number] Closed 11/19/2024 11/19/2025 1 1 Encounter Details Date Type Department Care Team (Late st Contact Info) Description 11/19/2024 9:40 AM EDT - 11/19/2024 11:59 PM EDT Hospital Encounter [facility] Diagnostic Imaging - [address] [facility] [address] [place] [address] Nick Rasmussen PA-C [address] [place] [address] Bilateral foot pain Discharge Disposition: Home or [...] Date Vijay rded Speak language other than Sudanese at home Not on file 07/19/2023 Want [...] Description 02/11/2025 10:00 AM EDT Office Visit [facility] Orthopedics - [address] [place] [address] Nick Rasmussen PA-C [address] [place], [place] [id number] 08/19/2025 9:30 AM EST Appointment [address] [place] [address] documented as of this encounter [...] by Dr. Antoni Yarbrough. Transcribed by Marquis Sotut PA-C Narrative 11/19/2024 1:11 PM EDT LEFT [...] pain documented in this encounter Care Teams Barrel Raiser Relationship Specialty Start Date End Date WillyLena, TACKING STITCH REMOVER [address] [place] [address] PCP - General Family Medicine 10/28/23 Nick Rasmussen PA-C [address] [place] [address] Orthopedic Surgery 08/07/23 Nimisha Nuñez PA-C [address] [place] [address] Physician Director Of Golf Orthopedic Surgery 02/05/24 documented as of this encounter
--- OUTSIDE RECORDS SUMMARY | 2024-11-19 09:40 | XMS_ITS | Encounter Summary ---
Author Organization [employer] ([place], [place], [place], [place]) Address [address] [place] [address] Care Team Providers Care Vault Maker Name Role Phone Nick Rasmussen PA-C Unavailable [phone] Lena Aguilera APRN Primary Care Provider [phone] Nimisha Nuñez PA-C Unavailable [phone] Reason for Referral * Diagnostic X-Ray (Routine) - Closed Specialty Diagnoses / Procedures Referred By Contac t Referred To Contact Radiology Diagnoses Bilateral hand pain Procedures X-ray hand bilateral PA lateral and oblique Nick Rasmussen PA-C [address] [place] [address] Phone: tel: fax: [facility] - [place] [facility] [address] [facility] [address] [place] [address] Phone: tel: fax: Referral ID Status Reason Start Date Expiration Date Visits Re quested Visits Authorized [id number] Closed 11/19/2024 11/19/2025 1 1 Reason for Visit * Diagnostic X-Ray (Routine) - Closed Specialty Diagnoses / Procedures Referred By Contac t Referred To Contact Radiology Diagnoses Bilateral hand pain Procedures X-ray hand bilateral PA lateral and oblique Nick Rasmussen PA-C [address] [place] [address] Phone: tel: fax: [facility] - [address] [place] [address] Phone: tel: fax: Referral ID Status Reason Start Date Expiration Date Visits Re quested Visits Authorized [id number] Closed 11/19/2024 11/19/2025 1 1 Encounter Details Date Type Department Care Team (Late st Contact Info) Description 11/19/2024 9:40 AM EDT - 11/19/2024 11:59 PM EDT Hospital Encounter [facility] - [address] [facility] [address] [place] [address] Nick Rasmussen PA-C [address] [place] [address] Bilateral hand pain Discharge Disposition: Home or [...] Date Vijay rded Speak language other than Kittitian at home Not on file 07/19/2023 Want [...] Description 02/11/2025 10:00 AM EDT Office Visit [facility] Orthopedics - [address] [place] [address] Nick Rasmussen PA-C [address] [place], [place] [id number] 08/19/2025 9:30 AM EST Appointment [address] [place] [address] documented as of this encounter [...] pain documented in this encounter Care Teams Vault Maker Relationship Specialty Start Date End Date Lena Aguilera, LIFE ASSURANCE REPRESENTATIVE [address] [place] [address] PCP - General Family Medicine 10/28/23 Nick Rasmussen PA-C [address] [place] [address] Orthopedic Surgery 08/07/23 Nimisha Nuñez PA-C [address] [place] [address] Physician Lawn Mower Operator Orthopedic Surgery 02/05/24 documented as of this encounter
--- OUTSIDE RECORDS SUMMARY | 2024-12-05 10:57 | XMS_ITS | Encounter Summary ---
Author Organization [email or web address] ([place], [place], [place], [place]) Address [address] [place] [address] Care Team Providers Care Pleating Supervisor Name Role Phone Nick Rasmussen PA-C Unavailable [phone] Lena Aguilera APRN Primary Care Provider [phone] Nimisha Nuñez PA-C Unavailable [phone] Reason for Visit * Reason Comments Dizziness Pt presents to ED fo r dizziness, chest pain, earache, and headache. Onset 30 mins ago. Encounter Details Date Type Department Care Team (Late st Contact Info) Description 12/05/2024 10:57 AM EDT - 12/05/2024 2:53 PM EDT Emergency [facility] Emergency Department [address] [place] [phone] Mayank Patrick MD [address] [place], [place] [id number] Acute cystitis with hematuria (Primary Dx); Chest pain, unspecified type Discharge Disposition: Home or Self Care Social [...] Date Vijay rded Speak language other than Swiss at home Not on file 07/19/2023 Want [...] Sign Reading Time Taken Comments Blood Pressure 125/72 12/05/2024 11:06 AM EDT Pulse 75 12/05/2024 11:06 AM EDT Temperature 36.8 C (98.3 F) 12/05/2024 11:06 AM EDT Respiratory Rate 16 12/05/2024 11:06 AM EDT Oxygen Saturation 97% 12/05/2024 11:06 AM EDT Inhaled Oxygen Concentration - - Weight 88 kg (194 lb) 12/05/2024 11:06 AM EDT Height - - Body Mass Index 34.37 11/19/2024 10:14 AM EDT documented in this encounter Discharge Instructions * Attachments The following attachments cannot be sent through Care Everywhere. * Urinary Tract Infection Adult [id number] (Swiss) documented in this encounter Medications at Time of Discharge [...] by mouth 3 (three) times daily. 05/04/2022 cefdinir (OMNICEF) 300 mg capsule Take 1 capsule (300 mg total) by mouth 2 (two) times daily for 7 days. 14 capsule 12/05/2024 12/12/2024 fluconazole (DIFLUCAN) 150 MG tablet Take 1 tablet (150 mg total) by mouth once for 1 dose. 1 tablet 12/05/2024 12/05/2024 documented as of this encounter ED Notes * Yamel Hurt, EDDA - 12/05/2024 12:20 PM EDT Subjective Chief Complaint: Dizziness (Pt presents to ED for dizziness, chest pain, earache, and headache. Onset 30 mins ago. ) HPI 59-year-old female with significant past medical history of hypertension, hyperlipidemia, prediabetic, thyroid disease, presents to the emergency department with complaints of chest pain, headache, dizziness that began roughly 30 minutes ago while at work. Patient states that she has these episodesquite frequently, states that the chest pain was a new symptom so she decided to come to the emergency department. Patient states that she has a chronic history of ringing in her ears. She states that she had a cough roughly 2 days ago other than that denies any symptoms such as congestion, rhinorrhea, shortness of air, blurred vision. ROS negative except as document HPI. Patient History Past Medical History: Diagnosis Date Gout Hyperlipemia Hypertension Prediabetes Thyroid disease Past Surgical History: Procedure Laterality Date COLONOSCOPY,POLYPECTOMY N/A 10/28/2023 Procedure: COLONOSCOPY, WITH POLYPECTOMY; Surgeon: Stephani Romero MD; Location: [facility]; Service: Gastroenterology; Laterality: N/A; HYSTERECTOMY KNEE SURGERY [place] COLON CA SCRN NOT HI RSK IND 10/28/2023 Family History Problem Relation Name Age of Onset Heart disease Other High blood pressure Other Gout Other Kidney disease Other Cancer Other Social History Tobacco Use Smoking status: Never Smokeless tobacco: Never Substance Use Topics Alcohol use: Never I reviewed the HPI, ROS and PFSH documentation recorded by others in the medical record and supplemented my note as needed. Review of Systems Review of Systems Physical Exam ED Triage Vitals [12/05/24 1106] Encounter Vitals Group BP 125/72 Systolic BP Percentile Diastolic BP Percentile Pulse 75 Resp 16 Temp 98.3 ??F (36.8 ??C) Temp src SpO2 97 % Weight 88 kg (194 lb) Height Head Circumference Peak Flow Pain Score Pain Loc Pain Education Exclude from Growth Chart Physical Exam GENERAL: Well-developed, well-nourished HEENT: Normocephalic, atraumatic. PERRL. Mucous membranes moist NECK: No LAD, neck supple, no tracheal deviation HEART: Regular rhythm, no murmurs, gallops, or rubs appreciated LUNGS: Clear bilaterally with normal effort and good air movement. No wheezes, rales, or rhonchi ABDOMEN: Soft, nontender, nondistended. EXTREMITIES: Moving all four extremities with no acute deformity or joint effusions SKIN: Warm, dry, well-perfused, no rashes NEURO: Alert, awake, and oriented to person, place, and time. Grossly nonfocal with intact strengthand sensation to bilateral upper and lower extremities ED Course & MDM Medications fluconazole (DIFLUCAN) tablet 150 mg (has no administration in time range) ondansetron (ZOFRAN) injection 4 mg (4 mg intravenous Given 12/05/24 1150) ketorolac (TORADOL) injection 15 mg (15 mg intravenous Given 12/05/24 1150) Results for orders placed or performed during the hospital encounter of 12/05/24 CBC with automated diff Result Value Ref Range WBC 5.8 3.9 - 10.0 K/??L RBC 4.85 3.93 - 6.08 M/??L Hemoglobin 13.8 11.2 - 15.7 GM/DL Hematocrit 41.5 34.1 - 44.9 % MCV 86 79 - 95 fL MCH 28.5 25.6 - 32.2 pg MCHC 33.3 32.2 - 36.5 GM/DL RDW 13.3 11.6 - 14.4 % Platelets 195 163 - 369 K/CU MM MPV 9.6 9.4 - 12.4 fL % Neutros 70 34 - 71 % % Lymphs 16 (L) 19 - 53 % % Monos 9 4 - 13 % % Eos 5 1 - 7 % % Baso 1 0 - 1 % # Neutros 4.02 1.56 - 6.13 K/??L # Lymphs 0.90 (L) 1.18 - 3.74 K/??L # Monos 0.52 0.24 - 0.82 K/??L # Eos 0.27 0.04 - 0.54 K/??L # Baso 0.05 0.01 - 0.08 K/??L Immature Granulocytes-Relative 0.30 0.00 - 0.60 % # IG 0.02 0.00 - 0.05 K/uL Comprehensive metabolic panel Result Value Ref Range Sodium 138 136 - 146 meq/L Potassium 3.9 3.5 - 5.1 meq/L Chloride 106 102 - 112 meq/L CO2 26 21 - 32 meq/L Calcium 9.6 8.5 - 10.1 mg/dL Glucose 109 (H) 74 - 106 mg/dL BUN 24 (H) 7 - 22 mg/dL Creatinine 1.18 (H) 0.55 - 1.02 mg/dL BUN/Creatinine 20 8 - 20 Albumin 3.9 3.4 - 5.0 g/dL Alkaline Phosphatase 97 27 - 136 U/L ALT 32 12 - 78 U/L AST 24 5 - 37 U/L Total Bilirubin 0.5 0.2 - 1.3 mg/dL Protein, Total 7.6 6.4 - 8.2 gm/dL Anion Gap 10 9 - 20 A/G Ratio 1.1 1.1 - 2.5 Globulin 3.7 1.5 - 4.5 g/dL Osmolality Calc 280.3 mOsm/kg eGFR (mL/min/1.73m2) 53 (L) >=60 mL/min/1.73m2 High Sensitivity Troponin I Result Value Ref Range Troponin I High Sensitivity (pg/mL) 5.4 3 - 58.8 pg/mL High Sensitivity Troponin I Result Value Ref Range Troponin I High Sensitivity (pg/mL) 5.9 3 - 58.8 pg/mL aPTT Result Value Ref Range aPTT 25.9 22.0 - 32.0 seconds Prothrombin time/INR Result Value Ref Range Protime 10.4 9.0 - 12.0 seconds INR 0.95 0.80 - 1.10 Urinalysis, Reflex Microscopic and Culture If Indicated Result Value Ref Range Color, UA Yellow Clarity, UA Turbid (A) Clear Specific [place], UA 1.024 1.005 - 1.030 pH, UA 7.0 6.0 - 8.0 Leukocytes, UA 500 Evangelist/uL (A) Negative Nitrite, UA Negative Negative Protein, UA Trace (A) Negative Glucose, UA Normal Normal Ketones, UA Negative Negative Bilirubin, UA Negative Negative Blood, UA Negative Negative Urobilinogen, UA Normal Normal Specimen Source Urine, Clean Catch Urinalysis Microscopic Only Result Value Ref Range WBC, UA 51-100 (A) None Seen /HPF RBC, UA 6-10 (A) None Seen /HPF Bacteria, UA 2+ (A) Trace, None Seen Mucus 1+ (A) None Seen SQUAMOUS EPITHELIAL 3-5 (A) None Seen /HPF TRANSITIONAL EPITHELIAL CELLS 0-2 (A) None Seen /HPF Non Squamous Epithelial Cells Present Absent XR chest 1 view portable / bedside Preliminary Result No acute cardiopulmonary process . Images reviewed, interpreted, and dictated by Dr. Jonny Rodriguez. Transcribed by Agnes Verdin PA-C. ED Course as of 12/05/24 1442 Sat Dec 05, 2024 1124 EKG interpreted by me. Performed at 1103. Sinus rhythm, rate 73, normal axis, normal QTc. No STEMI. [AG] ED Course User Index [AG] Mayank Patrick MD Procedures Medical Decision Making Amount and/or Complexity of Data Reviewed Labs: ordered. Radiology: ordered. ECG/medicine tests: ordered. Risk Prescription drug management. 59-year-old female with significant past medical history of hypertension, hyperlipidemia, prediabetic, thyroid disease, presents to the emergency department with complaints of chest pain, headache, dizziness that began roughly 30 minutes ago while at work. Patient states that she has these episodesquite frequently, states that the chest pain was a new symptom so she decided to come to the emergency department. Patient states that she has a chronic history of ringing in her ears. She states that she had a cough roughly 2 days ago other than that denies any symptoms such as congestion, rhinorrhea, shortness of air, blurred vision. Patient presents in no acute emergent distress. Differential d iagnosis include but not limited to SD, dehydration, electrolyte imbalance, anxiety. During patient's visit she stated that she did have dysuria. Personally reviewed urinalysis which was positive for urinary tract infection, reviewed nonactionable CMP, CBC, PTT, PT/INR, troponin negative at 5.4 and 2-hour repeat troponin negative at 5.9. Patient states she is feeling much better after receiving Toradol. Reviewed chest x-ray showing no acute cardiopulmonary abnormalities. At this time discussed sending patient home on oral antibiotics for urinary tract infection encouraged her to follow-up with her PCP. She verbalized understand she is agreeable with this plan of care. She wasalso educated on signs symptoms that warrant return back to the ER, patient is currently stable ready for discharge. Assessment & Plan Clinical Impression Diagnosis Comment Added By Time Added Acute cystitis with hematuria Yamel Hurt NP 12/05/2024 2:27 PM Chest pain, unspecified type Yamel Hurt NP 12/05/2024 2:28 PM Disposition Discharge [1] - 12/05/2024 2:42 PM New Prescriptions CEFDINIR (OMNICEF) 300 MG CAPSULE Take 1 capsule (300 mg total) by mouth 2 (two) times daily for 7 days. FLUCONAZOLE (DIFLUCAN) 150 MG TABLET Take 1 tablet (150 mg total) by mouth once for 1 dose. Contact information for follow-up Lena Aguilera APRN Specialty: Family Medicine Relationship: [place] [address] Next Steps: Schedule an appointment as soon as possible for a visit Instructions: As needed, If symptoms worsen Associated attestation - Mayank Patrick MD - 12/06/2024 6:16 AM CDT Mayank Patrick MD: I saw the patient [id number]. I performed a substantive portion of the MDM. Chest x-ray was personally reviewed and independently interpreted by me with findings: No obvious pneumonia, no pneumothorax. documented in this encounter Plan of Treatment Upcoming Encounters Date Type Department Care Team (Late st Contact Info) Description 02/11/2025 10:00 AM EDT Office Visit [facility] - [address] [place] [address] Nick Rasmussen PA-C [address] [place] [phone] 08/19/2025 9:30 AM EST Appointment [facility] [address] [place] [phone] documented as of this encounter Procedures Procedure Name Priority Date/Time Associated Diagnosis Comments HIGH SENSITIVITY TROPONIN I STAT 12/05/2024 1:20 PM EDT URINALYSIS, REFLEX MICROSCOPIC AND CULTURE IF INDICATED STAT 12/05/2024 12:45 PM EDT URINALYSIS MICROSCOPIC STAT 12:45 PM EDT URINE CULTURE STAT 12/05/2024 12:45 PM EDT XR CHEST 1 VIEW PORTABLE / BEDSIDE STAT 12/05/2024 11:32 AM EDT CBC W/ AUTO DIFF STAT 12/05/2024 11:3 0 AM EDT HIGH SENSITIVITY TROPONIN I STAT 12/05/2024 11:30 AM EDT APTT STAT 12/05/2024 11:30 AM EDT PROTHROMBIN TIME/INR STAT 12/05/2024 11:30 AM EDT COMPREHENSIVE METABOLIC PANEL STAT 12/05/2024 11:30 AM EDT FS_MODEL_IP_ECG 12-LEAD STAT 12/05/2024 11:03 AM EDT documented in this encounter Results * High Sensitivity Troponin I (12/05/2024 1:20 PM EDT) Troponin I High Sensitivity (pg/mL) 5.9 3 - 58.8 pg/mL 12/05/2024 1:45 PM EDT [facility] Comment: Troponin Result (pg/mL) *Interpretation 3-58.8 *Normal; less than 99th percentile of normal range >58.8 *Abnormal; greater than 99th percentile of normal range Biotin specimen concentration >300 ng/mL may lead to falsely depressed results for patient samples. Do not use this test for renal dysfunction patients (eGFR <60) unless it is confirmed that the patient is not taking Biotin. Blood Venipuncture / Unknown 12/05/2024 1:20 PM EDT 12/05/2024 1:20 PM EDT Yamel Hurt NP LAB BLOOD ORDERABLES Final Res ult Performing Organization Address [facility] Co de Phone Number [facility] [address] [place] [address], [facility] [phone] * Urine Culture (12/05/2024 12:45 PM EDT) Result Recollect Specimen - 3 or more organisms suggests contamination 12/07/2024 8:55 AM EDT [facility] Urine URINE SPECIMEN COLLECTION, CLEAN CATCH / Unknown 12/05/2024 12:45 PM EDT 12/05/2024 2:19 PM EDT Yamel Hurt NP MICROBIOLOGY - GENERAL ORDERAB LES Final Result Performing Organization Address [facility] de Phone Number [facility] [address] [place] [address], [facility] [phone] * (ABNORMAL) Urinalysis Microscopic Only (12/05/2024 12:45 PM EDT) WBC, UA 51-100(A) None Seen /HPF 12/05/2024 2:20 PM EDT [facility] RBC, UA 6-10(A) None Seen /HPF 12/05/2024 2:20 PM EDT [facility] Bacteria, UA 2+(A) Trace, None Seen 12/05/2024 2:20 PM EDT [facility] Mucus 1+(A) None Seen 12/05/2024 2:20 PM EDT [facility] SQUAMOUS EPITHELIAL 3-5(A) None Seen /HPF 12/05/2024 2:20 PM EDT [facility] TRANSITIONAL EPITHELIAL CELLS 0-2(A) None Seen /HPF 12/05/2024 2:20 PM EDT [facility] Non Squamous Epithelial Cells Present Absent 12/05/2024 2:20 PM EDT [facility] Urine URINE SPECIMEN COLLECTION, CLEAN CATCH / Unknown 12/05/2024 12:45 PM EDT 12/05/2024 2:07 PM EDT Yamel Hurt MARINE SUPERINTENDENT URINE ORDERABLES Final Result [facility] [address] [employer] [address] [phone] * (ABNORMAL) Urinalysis, Reflex Microscopic and Culture If Indicated (12/05/2024 12:45 PM EDT) Color, UA Yellow 12/05/2024 2:20 PM EDT [facility] Clarity, UA Turbid(A) Clear 12/05/2024 2:20 PM EDT [facility] Specific [place], UA 1.024 1.005 - 1.030 12/05/2024 2:20 PM EDT [facility] pH, UA 7.0 6.0 - 8.0 12/05/2024 2:20 PM EDT [facility] Leukocytes, UA 500 Evangelist/uL(A) Negative 12/05/2024 2:20 PM EDT [facility] Nitrite, UA Negative Negative 12/05/2024 2:20 PM EDT [facility] Protein, UA Trace(A) Negative 12/05/2024 2:20 PM EDT [facility] Glucose, UA Normal Normal 12/05/2024 2:20 PM EDT [facility] Ketones, UA Negative Negative 12/05/2024 2:20 PM EDT [facility] Bilirubin, UA Negative Negative 12/05/2024 2:20 PM EDT [facility] Blood, UA Negative Negative 12/05/2024 2:20 PM EDT [facility] Urobilinogen, UA Normal Normal 12/05/2024 2:20 PM EDT [facility] Specimen Source Urine, Clean Catch 12/05/2024 2:20 PM EDT [facility] Urine URINE SPECIMEN COLLECTION, CLEAN CATCH / Unknown 12/05/2024 12:45 PM EDT 12/05/2024 2:07 PM EDT Yamel Hurt NP URINE ORDERABLES Final Result [facility] [address] [phone] * XR chest 1 view portable / bedside (12/05/2024 11:32 AM EDT) Anatomical Region Laterality Modality X-Ray 12/05/2024 1:35 PM EDT Impressions 12/05/2024 3:17 PM EDT No acute cardiopulmonary process . Images reviewed, interpreted, and dictated by Dr. Jonny Rodriguez. Transcribed by Agnes Verdin PA-C. Narrative 12/05/2024 3:17 PM EDT PORTABLE CHEST 12/05/2024 11:27 AM HISTORY: Mid chest pain, headache. COMPARISON: November 2019. FINDINGS: The heart size is within normal limits. The mediastinum is unremarkable. There is mild bibasilar atelectasis. There is no pneumothorax . Procedure Note Jonny Rodriguez MD - 12/05/2024 PORTABLE CHEST 12/05/2024 11:27 AM HISTORY: Mid chest pain, headache. COMPARISON: November 2019. FINDINGS: The heart size is within normal limits. The mediastinum is unremarkable. There is mild bibasilar atelectasis. There is no pneumothorax . IMPRESSION: No acute cardiopulmonary process . Images reviewed, interpreted, and dictated by Dr. Jonny Rodriguez. Transcribed by Agnes Verdin PA-C. us Yamel Hurt NP IMG DIAGNOSTIC IMAGING ORDERAB LES Final Result * Prothrombin time/INR (12/05/2024 11:30 AM EDT) Protime 10.4 9.0 - 12.0 seconds 12/05/2024 11:48 AM EDT [facility] INR 0.95 0.80 - 1.10 12/05/2024 11:48 AM EDT [facility] Comment: Recommended therapeutic ranges using International Normalized Ratio (INR) are: INR RANGE 2.0 - 3.0 Routine oral anticoagulant therapy 2.5 - 3.5 Oral anticoagulant therapy for patients with thromboembolic events on standard doses of Coumadin and those with mechanical heart valves. Blood Venipuncture / Unknown 12/05/2024 11:30 AM EDT 12/05/2024 11:30 AM EDT Yamel Hurt MARINE SUPERINTENDENT LAB BLOOD ORDERABLES Final Res ult Performing Organization Address [facility] Co de Phone Number [facility] [address] [phone] * aPTT (12/05/2024 11:30 AM EDT) aPTT 25.9 22.0 - 32.0 seconds 12/05/2024 11:48 AM EDT [facility] Blood Venipuncture / Unknown 12/05/2024 11:30 AM EDT 12/05/2024 11:30 AM EDT Yamel Hurt LAB BLOOD ORDERABLES Final Res ult Performing Organization Address [facility] Co de Phone Number [facility] [address] [phone] * High Sensitivity Troponin I (12/05/2024 11:30 AM EDT) Troponin I High Sensitivity (pg/mL) 5.4 3 - 58.8 pg/mL 12/05/2024 11:59 AM EDT [facility] Comment: Troponin Result (pg/mL) *Interpretation 3-58.8 *Normal; less than 99th percentile of normal range >58.8 *Abnormal; greater than 99th percentile of normal range Biotin specimen concentration >300 ng/mL may lead to falsely depressed results for patient samples. Do not use this test for renal dysfunction patients (eGFR <60) unless it is confirmed that the patient is not taking Biotin. Blood Venipuncture / Unknown 12/05/2024 11:30 AM EDT 12/05/2024 11:30 AM EDT us Yamel Hurt NP LAB BLOOD ORDERABLES Final Res ult [facility] [address] [employer] [facility] [place] [id number] [phone] * (ABNORMAL) Comprehensive metabolic panel (12/05/2024 11:30 AM EDT) Sodium 138 136 - 146 meq/L 12/05/2024 11:55 AM EDT [facility] Potassium 3.9 3.5 - 5.1 meq/L 12/05/2024 11:55 AM EDT [facility] Chloride 106 102 - 112 meq/L 12/05/2024 11:55 AM EDT [facility] CO2 26 21 - 32 meq/L 12/05/2024 11:55 AM EDT [facility] Calcium 9.6 8.5 - 10.1 mg/dL 12/05/2024 11:55 AM T [facility] Glucose 109(H) 74 - 106 mg/dL 12/05/2024 11:55 AM EDT [facility] BUN 24(H) 7 - 22 mg/dL 12/05/2024 11:55 AM EDT [facility] Creatinine 1.18(H) 0.55 - 1.02 mg/dL 12/05/2024 11:55 AM EDT [facility] BUN/Creatinine 20 8 - 20 12/05/2024 11:55 AM EDT [facility] Albumin 3.9 3.4 - 5.0 g/dL 12/05/2024 11:55 AM EDT [facility] Alkaline Phosphatase 97 27 - 136 U/L 12/05/2024 11:55 AM EDT [facility] ALT 32 12 - 78 U/L 12/05/2024 11:55 AM EDT [facility] AST 24 5 - 37 U/L 12/05/2024 11:55 AM EDT [facility] Total Bilirubin 0.5 0.2 - 1.3 mg/dL 12/05/2024 11:55 AM EDT [facility] Protein, Total 7.6 6.4 - 8.2 gm/dL 12/05/2024 11:55 AM EDT [facility] Anion Gap 10 9 - 20 12/05/2024 11:55 AM EDT [facility] A/G Ratio 1.1 1.1 - 2.5 12/05/2024 11:55 AM EDT [facility] Globulin 3.7 1.5 - 4.5 g/dL 12/05/2024 11:55 AM EDT [facility] Osmolality Calc 280.3 mOsm/kg 11:55 AM EDT [facility] eGFR (mL/min/1.73m2) 53(L) >=60 mL/min/1.7 3m2 12/05/2024 11:55 AM EDT [facility] Comment:ESTIMATED GFR IS NOT ACCURATE CREATININE CLEARANCE IN PREDICTING GLOMERULAR FILTRATION RATE. ESTIMATED GFR IS NOT APPLICABLE FOR DIALYSIS PATIENTS. Blood Venipuncture / Unknown 12/05/2024 11:30 AM EDT 12/05/2024 11:30 AM EDT us Yamel Hurt MARINE SUPERINTENDENT LAB BLOOD ORDERABLES Final Res ult [facility] [address] [phone] * (ABNORMAL) CBC with automated diff (12/05/2024 11:30 AM EDT) WBC 5.8 3.9 - 10.0 K/ L 12/05/2024 11:34 AM EDT [facility] RBC 4.85 3.93 - 6.08 M/ L 12/05/2024 11:34 AM EDT [facility] Hemoglobin 13.8 11.2 - 15.7 GM/DL 12/05/2024 11:34 AM EDT [facility] Hematocrit 41.5 34.1 - 44.9 % 12/05/2024 11:34 AM EDT [facility] MCV 86 79 - 95 fL 12/05/2024 11:34 AM EDT [facility] MCH 28.5 25.6 - 32.2 pg 12/05/2024 11:34 AM EDT [facility] MCHC 33.3 32.2 - 36.5 GM/DL 12/05/2024 11:34 AM EDT [facility] RDW 13.3 11.6 - 14.4 % 12/05/2024 11:34 AM EDT [facility] Platelets 195 163 - 369 K/CU MM 12/05/2024 11:34 AM EDT [facility] MPV 9.6 9.4 - 12.4 fL 12/05/2024 11:34 AM EDT [facility] % Neutros 70 34 - 71 % 12/05/2024 11:34 AM EDT [facility] % Lymphs 16(L) 19 - 53 % 12/05/2024 11:34 AM EDT [facility] % Monos 9 4 - 13 % 12/05/2024 11:34 AM EDT [facility] % Eos 5 1 - 7 % 12/05/2024 11:34 AM EDT [facility] % Baso 1 0 - 1 % 12/05/2024 11:34 AM EDT [facility] # Neutros 4.02 1.56 - 6.13 K/ L 12/05/2024 11:34 AM EDT [facility] # Lymphs 0.90(L) 1.18 - 3.74 K/ L 12/05/2024 11:34 AM EDT [facility] # Monos 0.52 0.24 - 0.82 K/ L 12/05/2024 11:34 AM EDT [facility] # Eos 0.27 0.04 - 0.54 K/ L 12/05/2024 11:34 AM EDT [facility] # Baso 0.05 0.01 - 0.08 K/ L 12/05/2024 11:34 AM EDT [facility] Immature Granulocytes-Re lative 0.30 0.00 - 0.60 % 12/05/2024 11:34 AM EDT [facility] # IG 0.02 0.00 - 0.05 K/uL 12/05/2024 11:34 AM EDT [facility] Blood Venipuncture / Unknown 12/05/2024 11:30 AM EDT 12/05/2024 11:30 AM EDT Narrative [facility] - 12/05/2024 11:34 AM EDT When CBC w/ Auto Diff is ordered the lab will add a Manual Differential as a quality check at no additional charge if: Lymphocytes greater than seventy five percent with normal or increased WBC Monocytes greater than Fifteen percent Basophil greater than four percent Bands >10% or several immature myeloids are seen on scan Blast? Flag noted Atypical Lymph flag noted Yamel Hurt NP LAB BLOOD ORDERABLES Final Res ult Performing Organization Address [facility] Co de Phone Number [facility] [address] [phone] * ECG 12 lead (12/05/2024 11:03 AM EDT) SYSTOLIC BLOOD PRESSURE (MCT) 127 mmHg GE MUSE DIASTOLIC BLOOD PRESSURE (MCT) 77 mmHg GE MUSE VENTRICULAR RATE EKG/MIN 73 BPM GE MUSE ATRIAL RATE (MCT) 73 BPM GE MUSE GA Interval 142 ms GE MUSE QRS-INTERVAL (MSEC) 66 ms GE MUSE QT Interval 394 ms GE MUSE QTC Interval 434 ms GE MUSE P [place] 38 degrees GE MUSE R AXIS (MCT) 67 degrees GE MUSE T Wave [place] 55 degrees GE MUSE [place] Diagnosis Normal sinus rhythm Low voltage QRS Borderline ECG No previous ECGs available Confirmed by Bhumika URBANO SUZANNE ([id number]) on 12/09/2024 10:52:48 AM GE MUSE 12/05/2024 11:0 3 AM EDT 12/09/2024 10:52 AM EDT Yamel Hurt NP ECG ORDERABLES Final Result Performing Organization Address [facility] [facility] Co de Phone Number GE MUSE documented in this encounter Visit Diagnoses Diagnosis Acute cystitis with hematuria- Primary Chest pain, unspecified type documented in this encounter Administered Medications Inactive Administered Medications - up to 3 most recent administrations Medication Order MAR Action Action Date Dose Rate Site fluconazole (DIFLUCAN) tablet 150 mg 150 mg Once, oral, On Sat 6/25 at 1445, For 1 dose, Caution: Recommend wearing gloves during administration. DO NOT BREAK/CRUSH/CHEW. Employees who are , trying to become , or should not handle this medication. Dispose of trace medication (including packaging) in the BLACK waste bin. Given 12/05/2024 2:50 PM EDT 150 mg ketorolac (TORADOL) injection 15 mg 15 mg Once, intravenous, On 12/05/24 at 1130, For 1 dose Given 12/05/2024 11:50 AM EDT 15 mg ondansetron (ZOFRAN) injection 4 mg 4 mg Once, intravenous, On Sat 6 at 1130, For 1 dose, For IV push, give over 2 - 5 minutes. Given 12/05/2024 11:50 AM EDT 4 mg documented in this encounter Active and Recently Administered Medications Times are shown in EDT. Scheduled Medication Order 12/03/2024 12/04/2024 12/05/2024 fluconazole (DIFLUCAN) tablet 150 mg (COMPLETED) 150 mg Once, oral, On Sat 6 at 1445, For 1 dose, Caution: Recommend wearing gloves during administration. DO NOT BREAK/CRUSH/CHEW. Employees who are , trying to become , or should not handle this medication. Dispose of trace medication (including packaging) in the BLACK waste bin. 1450 (Given - Provid er: Melvin Blair RN) ketorolac (TORADOL) injection 15 mg (COMPLETED) 15 mg Once, intravenous, On Sat 6/25 at 1130, For 1 dose 1150 (Given - Provid er: Basil Hilton, BENJAMIN) ondansetron (ZOFRAN) injection 4 mg (COMPLETED) 4 mg Once, intravenous, On Sat 6/725 at 1130, For 1 dose, For IV push, give over 2 - 5 minutes. 1150 (Given - Provid er: Basil Hilton, RN) documented in this encounter Care Teams Pleating Supervisor Relationship Specialty Start Date End Date Lena Aguilera, INTERNAL CONTROL ANALYST [address] [place] [address] PCP - General Family Medicine 10/28/23 Nick Rasmussen PA-C [address] [place] [address] Orthopedic Surgery 08/07/23 Nimisha Nuñez PA-C [address] [place] [address] Physician Nursing Staff Development Coordinator Orthopedic Surgery 02/05/24 documented as of this encounter
--- OUTSIDE RECORDS SUMMARY | 2024-12-18 09:00 | XMS_ITS | Encounter Summary ---
Author Organization [employer] ([place], [place], [place], [place]) Address [address] [place] [address] Care Team Providers Care Receiving Teller Name Role Phone Nick Rasmussen PA-C Unavailable [phone] Lena Aguilera APRN Primary Care Provider [phone] Nimisha Nuñez PA-C Unavailable [phone] Reason for Visit * Other (Routine) - Closed Specialty Diagnoses / Procedures Referred By Kai robins Referred To Contact Neurology Diagnoses Numbness and tingling of both upper extremities Procedures EMG W/ NCS Nick Rasmussen PA-C [address] [place] [address] Phone: tel: fax: Sharda Dexter MD [address] [facility] [address] [place] [address] Phone: tel: fax: Referral ID Status Reason Start Date Expiration Date Visits Re quested Visits Authorized [id number] Closed 11/19/2024 11/19/2025 1 1 Encounter Details Date Type Department Care Team (Late st Contact Info) Description 12/18/2024 9:00 AM EDT Procedure Visit [facility] Neurology - [place] [address] [place] [address] Nick Rasmussen PA-C [address] [place] [address] Sharda Dexter MD [address] [facility] [address] [place] [address] Numbness and tingling of both upper extremities Social History Tobacco Use Types Packs/Day Years [...] Date Vijay rded Speak language other than Qatari at home Not on file 07/19/2023 Want [...] on file documented as of this encounter Progress Notes * Sharda Dexter MD - 12/18/2024 9:00 AM EDT emg documented in this encounter Plan of Treatment Upcoming Encounters Date Type Department Care Team (Late st Contact Info) Description 02/11/2025 10:00 AM EDT Office Visit [facility] Orthopedics - [address] [place] [address] Nick Rasmussen PA-C [address] [place] [address] 08/19/2025 9:30 AM EST Appointment [facility] 160 [facility] [address] [place] [address] documented as of this encounter Visit Diagnoses Diagnosis Numbness and tingling of both upper extremities documented in this encounter Care Teams Receiving Teller Relationship Specialty Start Date End Date Lena Aguilera, NEUROLOGY TEACHER [address] [place] [address] PCP - General Family Medicine 10/28/23 Nick Rasmussen PA-C [address] [place] [address] Orthopedic Surgery 08/07/23 Nimisha Nuñez PA-C [address] [place] [address] Physician Rod Cup Filler Orthopedic Surgery 02/05/24 documented as of this encounter
--- OUTSIDE RECORDS SUMMARY | 2024-12-23 14:15 | XMS_ITS | Encounter Summary ---
Author Organization [employer] ([place], [place], [place], [place]) Address [address] [place] [address] Care Team Providers Care Day Care Center Director Name Role Phone Nick Rasmussen PA-C Unavailable [phone] Lena Aguilera APRN Primary Care Provider [phone] Nimisha Nuñez PA-C Unavailable [phone] Reason for Visit * Reason Comments Follow-up BUE numbness and tin gling with EMG and lab results. Encounter Details Date Type Department Care Team (Late st Contact Info) Description 12/23/2024 2:15 PM EDT Office Visit [facility] Orthopedics - [address] [place] [address] Nick Rasmussen PA-C [address] [phone] Left carpal tunnel syndrome (Primary Dx) Social History Tobacco Use Types [...] Date Vijay rded Speak language other than Marshallese at home Not on file 07/19/2023 Want [...] Sign Reading Time Taken Comments Blood Pressure 102/69 12/23/2024 2:20 PM EDT Pulse 81 12/23/2024 2:20 PM EDT Temperature - - Respiratory Rate 18 12/23/2024 2:20 PM EDT Oxygen Saturation - - Inhaled Oxygen Concentration - - Weight 88.5 kg (195 lb) 12/23/2024 2:20 PM EDT Height 160 cm (5' 3 ) 12/23/2024 2:20 PM EDT Body Mass Index 34.54 12/23/2024 2:20 PM EDT documented in this encounter Progress Notes * Nick Rasmussen PA-C - 12/23/2024 2:15 PM EDT Images from the original note were not included. NAME: Anisa Hernandes CSN: [id number] : 1965 PCP: Lena Aguilera APRN REASON FOR VISIT Follow-up (BUE numbness and tingling with EMG and lab results.) HPI Anisa Hernandes is a 59 y.o. female Patient presents today for a follow-up on BUE numbness and tingling with EMG and lab results. She reports she has been in and out of hospital in last few weeks for passing out. She is currently wearing a heart monitor. She notes mild improvement in her hand symptoms since the EMG. She reports pain if she twists her wrist the wrong way. She denies pain today in her extremities. Interval HPI from 11/19/24: Anisa Hernandes is a right hand dominant 59 y.o. female who presents today as an established patient with a new complaint of bilateral hand pain. Patient denies previoustrauma. She reports her pain has been present for two months. Patient reports symptoms are located diffusely throughout hand. Patient describes their symptoms as throbbing and tingling. She reports intermittent numbness and tingling that starts in her shoulder and radiates into her hands. She states this happens at least twice a week. She states when she sleeps her hands will go numb. Alleviatingfactors include Tylenol and Aleve. 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 Patient rates their pain as 2/10. CURRENT MEDICATIONS Current Outpatient Medications Medication Instructions [...] WITH POLYPECTOMY; Surgeon: Stephani Romero MD; Location: [facility]; Service: Gastroenterology; Laterality: N/A; HYSTERECTOMY KNEE SURGERY OR COLON CA SCRN NOT HI RSK IND [...] fatigue, no mood swings. Scribe Attestation: I, Harriet Ying RTR acted as a scribe and transcribed components of the current encounter under the direction of the Attending Provider. I have not been involved in providing any clinical treatments or patient care. Electronically Signed, Harriet Ying RTR OBJECTIVE Vitals: 12/23/24 1420 BP: 102/69 Pulse: 81 Resp: 18 Weight: 88.5 kg (195 lb) Height: 1.6 [...] Affect: Mood normal. Behavior: Behavior normal. Bilateral Wrist/Hand Exam Appearance: - effusion, - [...] 4/5 Flexion and Extension at wrist; 4/5 senior packaging engineer strength Neurovascular: capillary refill WNL, 2+ Radial pulse, +skin disturbance in median nerve distribution bilateral (less severe in left) Skin: normal appearance with no discoloration or wounds IMAGING/OUTSIDE REPORTS EMG report from [facility] performed on 12/18/24 was reviewed today revealing: ASSESSMENT Problem List Items Addressed This Visit Nervous and Auditory Left carpal tunnel syndrome - Primary Overview possible emg 12/18/24 DISCUSSION Carpal tunnel syndrome is the effect of abnormal pressure on the median nerve. It can result in a variety of problems, including pain, tingling, numbness, swelling, weakness or clumsiness of the fingers and thumb. Tendon swelling and tendinitis results from a person's own tendency to collect fluid around their tendons and joints. This may be aggravated by repetitive or strenuous activities when the lining around the tendons swells, the pressure cuts off the blood supply to the nerve. Scar tissue may form around the nerve from repeated episodes of pressure. Nerve damage is suspected when any symptoms occur regularly during the day. Electrical nerve study evaluation is indicated in selected cases if there is a question of other nerve compression syndromes, metabolic neuropathy, or nerve damage. Otherwise, management options are based on history and physical examination. In mild cases withtolerable symptoms and no evidence of nerve damage, conservative management is indicated. Nonoperative options include anti-inflammatory medication, vitamin B6, wrist splints while sleeping, and cortisone injection into the carpal tunnel. Risk Factors for failure of conservative management include age greater than 50, constant paresthesias, symptoms greater than 10 months, trigger digits, Phalen's test positive in less than 30 seconds, or any sign of nerve damage. Surgery is indicated for patients who have failed conservative management or have evidence of nerve damage. Additionally, patientswith mild current symptoms who are having other surgery on the same hand should be strongly considered for carpal tunnel release to avoid the difficult problem of acute carpal tunnel syndrome in the p ostoperative period. The longer the nerve is irritated, the less likely it is to have a full recovery. Conservative treatment has the risk of progressive nerve damage from prolonged compression, as well as increasing the chance of developing reflex sympathetic dystrophy. The main surgical risks arepersistence of numbness due to damage that has already occurred to the nerve or from a secondary site of compression, soreness of the palm (pillar pain), as well as the risks of surgery. PLAN Return if symptoms worsen or fail to improve. Patient will call for appointment as needed Will hold on steroid injection due to current cardiac workup Reviewed EMG findings with patient in office Rest Return to Clinic if new or worse symptoms occur Continue bracing at night and HEP Scribe Attestation: Denice Coleman CMA acted as [...] and concur. Electronically Signed, Nick Rasmussen PA-C 12/23/2024 2:35 PM EDT Leyda Young: Cheryl [facility] is [...] Description 02/11/2025 10:00 AM EDT Office Visit [facility] Orthopedics - [address] [place] [address] Nick Rasmussen PA-C [address] [place] [address] 08/19/2025 9:30 AM EST Appointment [facility] [address] [facility] [address] [place] [address] documented as of this encounter Visit Diagnoses Diagnosis Left carpal tunnel syndrome- Primary Carpal tunnel syndrome documented in this encounter Care Teams Day Care Center Director Relationship Specialty Start Date End Date Lena Aguilera APRN [address] [place] [address] PCP - General Family Medicine 10/28/23 Nick Rasmussen PA-C [address] [place], [place] [id number] Orthopedic Surgery 08/07/23 Nimisha Nuñez PA-C [address] [place], [place] [id number] Physician Combination Welder Orthopedic Surgery 02/05/24 documented as of this encounter
--- NOTE | 2024-12-30 | CA_ITS ---
APPROVED REPORT Exam: Pharmacologic Technologist: Kathy Stevens Ht: 5 ft 3 in Wt: 195 lbs BSA: 1.91 m2 Medical History Medications: allopurinol, aspirin, levothyroxine, lisinopril-hctz, metformin. Stress Test Details Test: Lexiscan Reason for pharmacologic stress test: physical limitation. HR Resting HR: 58 bpm Max Heart Rate (APMHR): 159.479072 bpm Max HR Achieved: 86 bpm Target HR (85% APMHR): 135.320477 bpm % of APMHR: 54.09 Recovery HR: 68 bpm BP Resting BP: 144.0/74.0 mmHg Max BP: 144.0/74.0 mmHg Recovery BP: 129.0/62.0 mmHg ECG Stress ECG Conclusion Symptoms: SOA, nauseated, CP. Arrhythmias/Ectopy: PVC. ST-T Changes: EKG nondiagnostic Lizeth. Electronically signed by : Radha Rodriguez MD 12/31/2024 12:37:14
--- OUTSIDE RECORDS SUMMARY | 2024-12-30 09:16 | XMS_ITS | Clinical Summary ---
Author Organization [employer] ([place], [place], [place], [place]) Address [address] [place] [address] Care Team Providers Care Talent Solutions Manager Name Role Phone Nick Rasmussen PA-C Unavailable [phone] Lena Aguilera APRN Primary Care Provider [phone] Nimisha Nuñez PA-C Unavailable [phone] Allergies Active Allergy Reactions Criticality Noted Date [...] for 7 days. 14 capsule 12/05/2024 12/13/19 fluconazole (DIFLUCAN) 150 MG tablet Take 1 tablet (150 mg total) by mouth once for 1 dose. 1 tablet 12/05/2024 12/06/19 Hospital, Clinic, or Other Facility Administered Medication Ordered Dose Route Frequency Start Date End Date Status lidocaine (XYLOCAINE) injection 1%Indications:Primary osteoarthritis of left knee 1 mL OTHER Once 10/25/2022 Active methylPREDNISolone acetate (DEPO-MEDROL) injection 80 mgIndications:Primary osteoarthritis of left knee 80 mg IAtc Once 10/25/2022 Active Active Problems Problem Noted Date Diagnosed Date Left carpal tunnel syndrome 12/23/2024 Overview (12/23/2024): possible emg 12/18/24 De Quervain's tenosynovitis, left 11/19/2024 Primary osteoarthritis [...] Encounters Date Type Department Care Team Description 12/23/2024 2:15 PM EDT Office Visit [facility] Orthopedics - [address] [place] [address] Nick Rasmussen PA-C Left carpal tunnel syndrome (Primary Dx) 12/18/2024 9:00 AM EDT Procedure Visit [facility] Neurology - [facility] [address] [place] [address] Nick Rasmussen PA-C Everman, Nicole A, MD Numbness and tingling of both upper extremities 12/18/2024 Orders Only [facility] Neurology - [facility] [address] [place] [address] Beena [place] MD 12/18/2024 Travel 12/05/2024 10:57 AM EDT - 12/05/2024 2:53 PM EDT Emergency [facility] Emergency Department [address] [place] [address] Mayank Patrick MD Acute cystitis with hematuria (Primary Dx); Chest pain, unspecified type Discharge Disposition: Home or Self Care 12/05/2024 Travel 11/19/2024 9:40 AM EDT - 11/19/2024 11:59 PM EDT Hospital Encounter [facility] Diagnostic Imaging - [address] [place] [address] Nick Rasmussen PA-C Bilateral foot pain Discharge Disposition: Home or Self Care 11/19/2024 9:40 AM EDT - 11/19/2024 11:59 PM EDT Hospital Encounter [facility] Diagnostic Imaging - [address] [place] [address] Nick Rasmussen PA-C Bilateral hand pain Discharge Disposition: Home or Self Care 11/19/2024 9:30 AM EDT Office Visit [facility] Orthopedics [address] [address] Nick Rasmussen PA-C Numbness and tingling of both upper extremities (Primary Dx); Bilateral hand pain; Bilateral foot pain; Calcaneal spur of left foot; Primary osteoarthritis of both hands; De Quervain's tenosynovitis, left; Multiple joint pain 11/12/2024 8:30 AM EDT Office Visit [facility] Orthopedics [address] [address] Nick Rasmussen PA-C Primary osteoarthritis of right knee (Primary Dx); Primary osteoarthritis of left knee 10/30/2024 Outside Orders [place] [address] Physical Therapy [address] [facility] [address] [place] [address] Lena Aguilera APRN Urinary incontinence (Primary Dx) from Last 3 Months Family History Medical [...] Date Vijay rded Speak language other than Amharic at home Not on file 07/19/2023 Want [...] Pulse 81 12/23/2024 2:20 PM EDT Temperature 36.8 C (98.3 F) 12/05/2024 11:06 AM EDT Respiratory Rate 18 12/23/2024 2:20 PM EDT Oxygen Saturation 97% 12/05/2024 11:06 AM EDT Inhaled Oxygen Concentration - - Weight 88.5 kg (195 lb) 12/23/2024 2:20 PM EDT Height 160 cm (5' 3 ) 12/23/2024 2:20 PM EDT Body Mass Index 34.54 12/23/2024 2:20 PM EDT Plan of Treatment Upcoming Encounters Date Type Department Care Team (Late st Contact Info) Description 02/11/2025 10:00 AM EDT Office Visit [facility] Orthopedics - [address] [place] [address] Nick Rasmussen PA-C [address] [place] [address] 08/19/2025 9:30 AM EST Appointment [address] [place] [address] Health Maintenance Due Date Last Done Comments CT Colonography 1965 FOBT/FIT 1965 Fit-DNA (Cologuard) 1965 Sigmoidoscopy 1965 Depression Screening (12+) 1975 HIV Screening 10/23/1978 Hepatitis C Screening 10/23/1981 DTAP/TDAP/TD VACCINES (1 - Tdap) 10/23/1982 Pneumococcal 50+ years (1 of 2 - PCV) 10/23/1982 Pap Smear 10/23/1984 Lipid Panel 10/23/2008 Shingles Vaccine (Zoster) (1 of 2) 10/23/2013 Respiratory Syncytial Virus (RSV) Adult or (1 - Risk 60-74 years 1-dose series) 2023 COVID-19 VACCINE ( - season) 2024 Influenza Vaccine (Season Ended) 2025 Tobacco Cessation Counseling and Screening (12+) 12/23/2025 12/23/2024 Breast Cancer Screening 09/10/2026 09/10/2024, 08/13 Colonoscopy 10/27/2028 10/28/2023 Colorectal Cancer Screening 10/27/2028 Procedures Procedure Name Priority Date/Time Associated Diagnosis Comments EMG W/NCS Routine 12/18/2024 1:44 PM EDT HIGH SENSITIVITY TROPONIN I STAT 12/05/2024 1:20 PM EDT URINALYSIS MICROSCOPIC STAT 12:45 PM EDT URINALYSIS, REFLEX MICROSCOPIC AND [...] 11/19/2024 10:10 AM EDT Bilateral foot pain MM DIGITAL MAMMO DIAGNOSTIC WITH JJ LEFT Routine 09/10/2024 11:18 AM EDT Abnormal mammogram from Last 3 Months or Most Recently Relevant to Health Maintenance Results * EMG W/ NCS (12/18/2024 1:44 PM EDT) Anatomical Region Laterality Modality Other us Historical Provider NEUROLOGY ORDERABLES (MCT ) Final Result * High Sensitivity Troponin I (12/05/2024 1:20 PM EDT) Only the most recent of2 resultswithin the time period is included. Troponin I High Sensitivity (pg/mL) 5.9 3 - 58.8 pg/mL 12/05/2024 1:45 PM EDT [facility] Comment: Troponin Result (pg/mL) *Interpretation [...] NP LAB BLOOD ORDERABLES Final Res ult [facility] [address] [employer] [address] [phone] * (ABNORMAL) Urinalysis, Reflex Microscopic and Culture If Indicated (12/05/2024 12:45 PM EDT) Color, UA Yellow 12/05/2024 2:20 PM EDT [facility] Clarity, UA Turbid(A) Clear 12/05/2024 2:20 PM EDT [facility] Specific [place], UA 1.024 1.005 - 1.030 12/05/2024 2:20 PM EDT [facility] pH, UA 7.0 6.0 - 8.0 12/05/2024 2:20 PM EDT [facility] Leukocytes, UA 500 Evangelist/uL(A) Negative 12/05/2024 2:20 PM EDT [facility] Nitrite, UA Negative Negative 12/05/2024 2:20 PM EDT [facility] Protein, UA Trace(A) Negative 12/05/2024 2:20 PM EDT [facility] Glucose, UA Normal Normal 12/05/2024 2:20 PM EDT [facility] Ketones, UA Negative Negative 12/05/2024 2:20 PM EDT [facility] Bilirubin, UA Negative Negative 12/05/2024 2:20 PM EDT [facility] Blood, UA Negative Negative 12/05/2024 2:20 PM EDT [facility] Urobilinogen, UA Normal Normal 12/05/2024 2:20 PM EDT [facility] Specimen Source Urine, Clean Catch 12/05/2024 2:20 PM EDT [facility] Urine URINE SPECIMEN COLLECTION, CLEAN CATCH / Unknown 12/05/2024 12:45 PM EDT 12/05/2024 2:07 PM EDT Yamel Hurt INSPECTOR BALL POINTS URINE ORDERABLES Final Result Performing Organization Address [facility] Co de Phone Number [facility] [address] [place] [address], [facility] [phone] * (ABNORMAL) Urinalysis Microscopic Only (12/05/2024 12:45 PM EDT) WBC, UA 51-100(A) None Seen /HPF 12/05/2024 2:20 PM EDT [facility] RBC, UA 6-10(A) None Seen /HPF 12/05/2024 2:20 PM EDT [facility] Bacteria, UA 2+(A) Trace, None Seen 12/05/2024 2:20 PM EDT [facility] Mucus 1+(A) None Seen 12/05/2024 2:20 PM EDT [facility] SQUAMOUS EPITHELIAL 3-5(A) None Seen /HPF 12/05/2024 2:20 PM EDT [facility] TRANSITIONAL EPITHELIAL CELLS 0-2(A) None Seen /HPF 12/05/2024 2:20 PM EDT [facility] Non Squamous Epithelial Cells Present Absent 12/05/2024 2:20 PM EDT [facility] Urine URINE SPECIMEN COLLECTION, CLEAN CATCH / Unknown 12/05/2024 12:45 PM EDT 12/05/2024 2:07 PM EDT Yamel Hurt NP URINE ORDERABLES Final Result Performing Organization Address [facility]/ZIP Co de Phone Number [facility] [address] [place] [address], [facility] [phone] * Urine Culture (12/05/2024 12:45 PM EDT) Result Recollect Specimen - 3 or more organisms suggests contamination 12/07/2024 8:55 AM EDT [facility] Urine URINE SPECIMEN COLLECTION, CLEAN CATCH / Unknown 12/05/2024 12:45 PM EDT 12/05/2024 2:19 PM EDT Yamel Hurt NP MICROBIOLOGY - GENERAL ORDERAB LES Final Result [facility] [address] [place] [address], [facility] [phone] * XR chest 1 view portable / [...] 10.0 K/ L 12/05/2024 11:34 AM EDT [facility] RBC 4.85 3.93 - 6.08 M/ L 12/05/2024 11:34 AM EDT [facility] Hemoglobin 13.8 11.2 - 15.7 GM/DL 12/05/2024 11:34 AM EDT [facility] Hematocrit 41.5 34.1 - 44.9 % 12/05/2024 11:34 AM EDT [facility] MCV 86 79 - 95 fL 12/05/2024 11:34 AM EDT [facility] MCH 28.5 25.6 - 32.2 pg 12/05/2024 11:34 AM EDT [facility] MCHC 33.3 32.2 - 36.5 GM/DL 12/05/2024 11:34 AM EDT [facility] RDW 13.3 11.6 - 14.4 % 12/05/2024 11:34 AM EDT [facility] Platelets 195 163 - 369 K/CU MM 12/05/2024 11:34 AM EDT [facility] MPV 9.6 9.4 - 12.4 fL 12/05/2024 11:34 AM EDT [facility] % Neutros 70 34 - 71 % 12/05/2024 11:34 AM EDT [facility] % Lymphs 16(L) 19 - 53 % 12/05/2024 11:34 AM EDT [facility] % Monos 9 4 - 13 % 12/05/2024 11:34 AM EDT [facility] % Eos 5 1 - 7 % 12/05/2024 11:34 AM EDT [facility] % Baso 1 0 - 1 % 12/05/2024 11:34 AM EDT [facility] # Neutros 4.02 1.56 - 6.13 K/ L 12/05/2024 11:34 AM EDT [facility] # Lymphs 0.90(L) 1.18 - 3.74 K/ L 12/05/2024 11:34 AM EDT [facility] # Monos 0.52 0.24 - 0.82 K/ L 12/05/2024 11:34 AM EDT [facility] # Eos 0.27 0.04 - 0.54 K/ L 12/05/2024 11:34 AM EDT [facility] # Baso 0.05 0.01 - 0.08 K/ L 12/05/2024 11:34 AM EDT [facility] Immature Granulocytes-Re lative 0.30 0.00 - 0.60 % 12/05/2024 11:34 AM EDT [facility] # IG 0.02 0.00 - 0.05 K/uL 12/05/2024 11:34 AM EDT [facility] Blood Venipuncture / Unknown 12/05/2024 11:30 AM EDT 12/05/2024 11:30 AM EDT Narrative [facility] - 12/05/2024 11:34 AM EDT [...] noted Atypical Lymph flag noted Yamel Hurt INSPECTOR BALL POINTS LAB BLOOD ORDERABLES Final Res ult Performing Organization Address City/[facility]/ZIP Co de Phone Number [facility] [address] [phone] * aPTT (12/05/2024 11:30 AM EDT) aPTT 25.9 22.0 - 32.0 seconds 12/05/2024 11:48 AM EDT [facility] Blood Venipuncture / Unknown 12/05/2024 11:30 AM EDT 12/05/2024 11:[address] [facility] INSPECTOR BALL POINTS LAB BLOOD ORDERABLES Final Res ult [facility] [address] [phone] * Prothrombin time/INR (12/05/2024 11:30 AM EDT) Protime 10.4 9.0 - 12.0 seconds 12/05/2024 11:48 AM EDT [facility] INR 0.95 0.80 - 1.10 12/05/2024 11:48 AM T [facility] Comment: Recommended therapeutic ranges using [...] NP LAB BLOOD ORDERABLES Final Res ult [facility] [address] [phone] * (ABNORMAL) Comprehensive metabolic panel (12/05/2024 11:30 AM EDT) Sodium 138 136 - 146 meq/L 12/05/2024 11:55 AM T [facility] Potassium 3.9 3.5 - 5.1 meq/L 12/05/2024 11:55 AM [facility] Chloride 106 102 - 112 meq/L 12/05/2024 11:55 AM T [facility] CO2 26 21 - 32 meq/L 12/05/2024 11:55 AM [facility] Calcium 9.6 8.5 - 10.1 mg/dL 12/05/2024 11:55 AM T [facility] Glucose 109(H) 74 - 106 mg/dL 12/05/2024 11:55 AM [facility] BUN 24(H) 7 - 22 mg/dL 12/05/2024 11:55 AM [facility] Creatinine 1.18(H) 0.55 - 1.02 mg/dL 12/05/2024 11:55 AM [facility] BUN/Creatinine 20 8 - 20 12/05/2024 11:55 AM [facility] Albumin 3.9 3.4 - 5.0 g/dL 12/05/2024 11:55 AM EDT [facility] Alkaline Phosphatase 97 27 - 136 U/L 12/05/2024 11:55 AM EDT [facility] ALT 32 12 - 78 U/L 12/05/2024 11:55 AM EDT [facility] AST 24 5 - 37 U/L 12/05/2024 11:55 AM EDT [facility] Total Bilirubin 0.5 0.2 - 1.3 mg/dL 12/05/2024 11:55 AM EDT [facility] Protein, Total 7.6 6.4 - 8.2 gm/dL 12/05/2024 11:55 AM [facility] Anion Gap 10 9 - 20 12/05/2024 11:55 AM T [facility] A/G Ratio 1.1 1.1 - 2.5 12/05/2024 11:55 AM [facility] Globulin 3.7 1.5 - 4.5 g/dL 12/05/2024 11:55 AM [facility] Osmolality Calc 280.3 mOsm/kg 11:55 AM [facility] eGFR (mL/min/1.73m2) 53(L) >=60 mL/min/1.7 3m2 12/05/2024 11:55 AM [facility] Comment:ESTIMATED GFR IS NOT ACCURATE CREATININE CLEARANCE IN PREDICTING GLOMERULAR FILTRATION RATE. ESTIMATED GFR IS NOT APPLICABLE FOR DIALYSIS PATIENTS. Blood Venipuncture / Unknown 12/05/2024 11:30 AM EDT 12/05/2024 11:30 AM EDT us Yamel Hurt NP LAB BLOOD ORDERABLES Final Res ult [facility] [address] [id number], [facility] [phone] * ECG 12 lead (12/05/2024 11:03 AM EDT) SYSTOLIC BLOOD PRESSURE (MCT) 127 mmHg GE MUSE DIASTOLIC BLOOD PRESSURE (MCT) 77 mmHg GE MUSE VENTRICULAR RATE EKG/MIN 73 BPM GE MUSE ATRIAL RATE (MCT) 73 BPM GE MUSE MI Interval 142 ms GE MUSE QRS-INTERVAL (MSEC) 66 ms GE MUSE QT Interval 394 ms GE MUSE QTC Interval 434 ms GE MUSE P Dorsey 38 degrees GE MUSE R AXIS (MCT) 67 degrees GE MUSE T Wave Dorsey 55 degrees GE MUSE [place] Diagnosis Normal sinus rhythm Low voltage QRS [...] DIAGNOSTIC IMAGING ORDER DEEPAK Final Result * (ABNORMAL) MM digital mammo diagnostic with [...] recommended imaging studies/procedures. At our facility, a ione marker is positioned over a visible skin [...] family history of breast cancer COMPARISON STUDY: [facility] 08/13/2024 FINDINGS: Craniocaudal and mediolateral oblique images [...] Most Recently Relevant to [place] [address] [facility] Care Teams Talent Solutions Manager Relationship Specialty Start Date End Date Lena Aguilera APRN [address] [place] [address] PCP - General Family Medicine 10/28/23 Nick Rasmussen PA-C [address] [place] [address] Orthopedic Surgery 08/07/23 Nimisha Nuñez PA-C [address] [place] [address] Physician Periodontist Orthopedic Surgery 02/05/24
--- OUTSIDE RECORDS SUMMARY | 2024-12-30 09:16 | XMS_ITS | Encounter Summary ---
Author Organization [employer] ([place], [place], [place], [place]) Address [address] [place] [address] Care Team Providers Care Speeder Operator Name Role Phone [facility] [place] Primary Care Provider Nick Rasmussen PA-C Unavailable [phone] Lena Aguilera APRN Primary Care Provider [phone] Nimisha Nuñez PA-C Unavailable [phone] Encounter Details Date Type Department Care Team (Late st Contact Info) Description 12/17/2019 Transcribed Document [facility] [address] [place] [address] Provider, Audra Hargrove MD Social History Tobacco Use Types Packs/Day Years Used Date Smoking Tobacco: Never Assessed Comments Unknown Sex and Gender Information Value Date Recorded Sex Assigned at Not on file Legal Sex Female 6:57 PM CDT Gender Identity Not on file Sexual Orientation Not on file documented as of this encounter Miscellaneous Notes * Cerner Conversion Note - [facility] Beena ProviderMD - 12/17/2019 9:10 AM EDT Pre Procedure Adult Entered On: 12/17/2019 8:16 EDT Performed On: 12/17/2019 8:10 EDT by Paola Lacy RN Height and Weight, Clinical Dosing Height Source : Stated Height Entry Format : [place] Height, Feet : 5 ft(Converted to: 152 cm, 60 Inch) Height, Inches : 3 Inch(Converted to: 0 ft 3 Inch, 7.62 cm) Clinical Height : 160.02 cm Weight Source : Standing scale Weight Entry Format : [place] Clinical Dosing Weight : 101.36 kg Weight, Pounds : 223 lb Body Surface Area (BSA) : 2.03 m2 Body Mass Index : 39.6 kg/m2 (HI) [place] Body Weight : 52 kg Paola Lacy [...] Where was the COVID-19 Testing completed? : [facility] Where are the test results? : In [...] Paola Lacy RN - 12/17/2019 8:[address] [place] Suicide Severity Rating Scale (C-SSRS) CSSRS Past Month Wish to be : No CSSRS Past Month Suicidal Thoughts : No CSSRS Lifetime Suicide Behavior : No Suicide Severity Rating Score : 0 Suicide Severity Rating : No Additional Care Required at this time Paola Lacy RN - 12/17/2019 8:10 EDT Psychosocial History Currently in Unsafe Situation : No Paola Lacy RN - 12/17/2019 8:10 EDT Advance Directive [...] Obtained From : Patient Primary Language : Spanish Preferred Communication Mode : Verbal Communication Barrier [...] Scale Risk Level : 25-45 Medium Risk K[place]ler Fall Interventions : Adequate lighting, Bed in [...] None Teaching Evaluation : Verbalizes understanding Paola aLcy RN - 12/17/2019 8:10 EDT Education Topics, [...] the text rendition version of the form. [place] Coma Cosme Best Motor Response : Obey commands Cosme Best Verbal Response : Oriented [place] Eye Opening Response : Spontaneous [place] Coma Score : 15 Paola Lacy RN - 12/17/2019 8:10 EDT documented in this encounter Plan of Treatment Upcoming Encounters Date Type Department Care Team (Late st Contact Info) Description 02/11/2025 10:00 AM EDT Office Visit [facility] Orthopedics - [address] [place] [address] Nick Rasmussen PA-C [address] [place] [address] 08/19/2025 9:30 AM EST Appointment [facility] [address] [place] [address] documented as of this encounter Visit Diagnoses Not on filedocumented in this encounter Care Teams Speeder Operator Relationship Specialty Start Date End Date [facility] [place] [address] PCP - General 09/19/22 10/27/23 Lena Aguilera APRN [address] [place] [address] PCP - General Family Medicine 10/28/23 Nick Rasmussen PA-C [address] [place] [address] Orthopedic Surgery 08/07/23 Nimisha Nuñez PA-C [address] [place], [place] [id number] Physician [facility] Orthopedic Surgery 02/05/24 documented as of this encounter
--- OUTSIDE RECORDS SUMMARY | 2024-12-30 09:16 | XMS_ITS | Encounter Summary ---
Author Organization [employer] ([place], [place], [place], [place]) Address [address] [place] [address] Care Team Providers Care Car Dispatcher Name Role Phone Krystyna Elliott [facility] Primary Care Provider Nick Rasmussen PA-C Unavailable [phone] Lena Aguilera APRN Primary Care Provider [phone] Nimisha Nuñez PA-C Unavailable [phone] Encounter Details Date Type Department Care Team (Late st Contact Info) Description 12/17/2019 Transcribed Document [address] [address] Provider, Audra Hargrove MD Social History Tobacco Use Types Packs/Day Years Used Date Smoking Tobacco: Never Assessed Comments Unknown Sex and Gender Information Value Date Recorded Sex Assigned at Not on file Legal Sex Female 6:57 PM CDT Gender Identity Not on file Sexual Orientation Not on file documented as of this encounter Miscellaneous Notes * Cerner Conversion Note - [facility] Beena Ogden MD - 12/17/2019 11:28 AM EDT [...] and water are not available, use hand apron worker. ? Change your dressing as told by [...] medicines you take. General instructions ??? Take farn-rtf-eiluwqp and prescription medicines only as told by [...] fried or sweet foods. ? Take an nokr-dad-sodwfjp or prescription medicines for constipation. ??? Do [...] 01/04/2006 Document Revised: 04/30/2018 Document Reviewed: 04/30/2018 Valopaa Interactive Patient Education ? 2019 [employer]. documented in this encounter Plan of Treatment Upcoming Encounters Date Type Department Care Team (Late st Contact Info) Description 02/11/2025 10:00 AM EDT Office Visit [facility] Orthopedics - [address] [place] [address] Nick Rasmussen PA-C [address] [place] [address] 08/19/2025 9:30 AM EST Appointment [facility] [address] [facility] [address] [place] [address] documented as of this encounter Visit Diagnoses Not on filedocumented in this encounter Care Teams Car Dispatcher Relationship Specialty Start Date End Date [facility] [address] PCP - General 09/19/22 10/27/23 Lena Aguilera APRN [address] [place] [address] PCP - General Family Medicine 10/28/23 Nick Rasmussen PA-C [address] [place] [address] Orthopedic Surgery 08/07/23 Nimisha Nuñez PA-C [address] [place] [address] Physician Optical Lens Manufacturing Tech Orthopedic Surgery 02/05/24 documented as of this encounter
--- OUTSIDE RECORDS SUMMARY | 2024-12-30 09:16 | XMS_ITS | Encounter Summary ---
Author Organization [employer] ([place], [place], [place], [place]) Address [address] [place] [address] Care Team Providers Care Windows Desktop Support Name Role Phone Krystyna Elliott [facility] Primary Care Provider Nick Rasmussen PA-C Unavailable [phone] Lena Aguilera APRN Primary Care Provider [phone] Nimisha Nuñez PA-C Unavailable [phone] Encounter Details Date Type Department Care Team (Late st Contact Info) Description 12/17/2019 Transcribed Document [address] [address] Provider, Audra Hargrove MD Social History Tobacco Use Types Packs/Day Years Used Date Smoking Tobacco: Never Assessed Comments Unknown Sex and Gender Information Value Date Recorded Sex Assigned at Not on file Legal Sex Female 6:57 PM CDT Gender Identity Not on file Sexual Orientation Not on file documented as of this encounter Miscellaneous Notes * Cerner Conversion Note - [facility] Beena ProviderMD - 12/17/2019 12:37 PM EDT [facility] [address] [place] [address] ANISA KATZISE :1965 Visit Time:12/17/2019 What to do next Your Diagnosis Unilateral primary osteoarthritis, right knee, Unilateral primary osteoarthritis, right knee Instructions From Your Care Team You have a prescription for Tippecanoe 7.5mg 1 tablet every 6 hours as needed for pain, your next dose is due after 4:30pm refer to discharge orders/orthopedic procedures form for detailed instructions. Follow-Up Appointments Follow Up with DRAGAN FLAHERTY MD-ORT When 12/30/2019 02:15 PM EDT Comments Appointment has been made Where: [address] [place] [address]- Medications What How Much When Instructions Next [...] and water are not available, use hand insulation machine operator. ? Change your dressing as told by [...] medicines you take. General instructions ??? Take moda-fxh-ablfqra and prescription medicines only as told by [...] fried or sweet foods. ? Take an lmec-qhd-ppebgvs or prescription medicines for constipation. ??? Do [...] 01/04/2006 Document Revised: 04/30/2018 Document Reviewed: 04/30/2018 Zen Planner Interactive Patient Education ?? 2020 [employer]. acetaminophen and hydrocodone (a SEET a MIN oh fen and imer drokiara KOE done) Hycet, Lorcet, Tippecanoe, Verdrocet, Vicodin, Xodol, Zamicet What is the [...] may report side effects to FDA at 6-454-ZTI-2913. What other drugs will affect acetaminophen and [...] affect acetaminophen and hydrocodone, including prescription and qiob-jkj-dpddabz medicines, vitamins, and herbal products. Not all [...] to ensure that the information provided by Metranome. ('Multum') is accurate, up-to-date, and complete, but no guarantee is made to that effect. Drug information contained herein may be time sensitive. [employer] information has been compiled for use by healthcare practitioners and consumers in the [place] and therefore [employer] does not warrant that uses outside of the [place] are appropriate, unless specifically indicated otherwise. [employer]'s drug information does not endorse drugs, diagnose patients or recommend therapy. Cloubrains drug information is an informational resource designed [...] effective or appropriate for any given patient. [employer] does not assume any responsibility for any aspect of healthcare administered with the aid of information [employer] provides. The information contained herein is not intended to cover all possible uses, directions, precautions, warnings, drug interactions, allergic reactions, or adverse effects. If you have questions about the drugs you are taking, check with your doctor, nurse or pharmacist. Copyright 8148-8751 Metranome. Version: 16.. Revision Date: 07/22/2019. acetaminophen and hydrocodone (a SEET a MIN oh fen and imer droe KOE done) Hycet, Lorcet, Tippecanoe, Verdrocet, Vicodin, Xodol, Zamicet What is the [...] may report side effects to FDA at 3-595-VWZ-6528. What other drugs will affect acetaminophen and [...] affect acetaminophen and hydrocodone, including prescription and ifhw-hzw-hzltbet medicines, vitamins, and herbal products. Not all [...] to ensure that the information provided by Metranome. ('Multum') is accurate, up-to-date, and complete, but no guarantee is made to that effect. Drug information contained herein may be time sensitive. [employer] information has been compiled for use by healthcare practitioners and consumers in the [place] and therefore [employer] does not warrant that uses outside of the [place] are appropriate, unless specifically indicated otherwise. Cloubrains drug information does not endorse drugs, diagnose patients or recommend therapy. USConnect drug information is an informational resource designed [...] effective or appropriate for any given patient. [employer] does not assume any responsibility for any aspect of healthcare administered with the aid of information [employer] provides. The information contained herein is not intended to cover all possible uses, directions, precautions, warnings, drug interactions, allergic reactions, or adverse effects. If you have questions about the drugs you are taking, check with your doctor, nurse or pharmacist. Copyright 5417-9293 Metranome. Version: 16.01. Revision Date: 07/22/2019. Emergency Awareness [...] Assistance with quitting is available by contacting 9-831-JQFG-NOW. This is a free resource providing counseling, [...] range between ( 1.0 and 7.0 ) Placer #: 0.41 K/uL -- Normal range between ( 0.24 and 0.82 ) Eos #: 0.25 K/uL -- Normal range between ( 0.04 and 0.54 ) Placer %: 7.5 % -- Normal range between [...] was given the opportunity to ask questions. Patient/Umbrella Tipper Hand Name: Patient/Umbrella Tipper Hand Signature: Relationship to Patient: Clinician/Hospital Umbrella Tipper Hand Signature: Date: documented in this encounter Plan of Treatment Upcoming Encounters Date Type Department Care Team (Late st Contact Info) Description 02/11/2025 10:00 AM EDT Office Visit [facility] Orthopedics - [address] [place] [address] Nick Rasmussen PA-C [address] [place] [address] 08/19/2025 9:30 AM EST Appointment [facility] [address] [facility] [address] [place] [address] documented as of this encounter Visit Diagnoses Not on filedocumented in this encounter Care Teams Windows Desktop Support Relationship Specialty Start Date End Date [facility] [place] [address] PCP - General 09/19/22 10/27/23 Lena Aguilera APRN [address] [place] [address] PCP - General Family Medicine 10/28/23 Nick Rasmussen PA-C [address] [place] [address] Orthopedic Surgery 08/07/23 Nimisha Nuñez PA-C [address] [place] [address] Physician Security Systems Technician Orthopedic Surgery 02/05/24 documented as of this encounter
--- OUTSIDE RECORDS SUMMARY | 2024-12-30 09:16 | XMS_ITS | Encounter Summary ---
Author Organization [employer] ([place], [place], [place], [place]) Address [address] [place] [address] Care Team Providers Care Primary Teacher Name Role Phone Krystyna Elliott [facility] Primary Care Provider Nick Rasmussen PA-C Unavailable [phone] Lena Aguilera APRN Primary Care Provider [phone] Nimisha Nuñez PA-C Unavailable [phone] Encounter Details Date Type Department Care Team (Late st Contact Info) Description 12/17/2019 Transcribed Document [address] [address] Provider, Audra Hargrove MD Social History Tobacco Use Types Packs/Day Years Used Date Smoking Tobacco: Never Assessed Comments Unknown Sex and Gender Information Value Date Recorded Sex Assigned at Not on file Legal Sex Female 6:57 PM CDT Gender Identity Not on file Sexual Orientation Not on file documented as of this encounter Miscellaneous Notes * Cerner Conversion Note - [facility] Beena ProviderMD - 12/17/2019 12:22 PM EDT [facility] [address] [place] [address] ANISA KATZISE :1965 Visit Time:12/17/2019 What to do next Your Diagnosis Unilateral primary osteoarthritis, right knee, Unilateral primary osteoarthritis, right knee Instructions From Your Care Team You have a prescription for [place] 7.5mg 1 tablet every 6 hours as needed for pain, your next dose is due after 4:30pm refer to discharge orders/orthopedic procedures form for detailed instructions. Follow-Up Appointments Follow Up with DRAGAN FLAHERTY MD-ORT When 12/30/2019 02:15 PM EDT Comments Appointment has been made Where: [address] [place] [address]- Medications What How Much When Instructions Next [...] and water are not available, use hand gas dispatcher. ? Change your dressing as told by [...] medicines you take. General instructions ??? Take uldd-hbf-zzfevil and prescription medicines only as told by [...] fried or sweet foods. ? Take an phfb-tji-xyeslfn or prescription medicines for constipation. ??? Do [...] 01/04/2006 Document Revised: 04/30/2018 Document Reviewed: 04/30/2018 LoLo Interactive Patient Education ?? 2020 [employer]er. acetaminophen and hydrocodone (a SEET a MIN oh fen and imer drokiara KOE done) Hycet, Lorcet, [place], Verdrocet, Vicodin, Xodol, Zamicet What is the [...] may report side effects to FDA at 0-512-VZH-4691. What other drugs will affect acetaminophen and [...] affect acetaminophen and hydrocodone, including prescription and ndiy-djj-vvyxsfr medicines, vitamins, and herbal products. Not all [...] to ensure that the information provided by GetApp. ('Multum') is accurate, up-to-date, and complete, but no guarantee is made to that effect. Drug information contained herein may be time sensitive. Widetronix information has been compiled for use by healthcare practitioners and consumers in the [place] and therefore [employer] does not warrant that uses outside of the [place] are appropriate, unless specifically indicated otherwise. [employer]'s drug information does not endorse drugs, diagnose patients or recommend therapy. DermaMedicss drug information is an informational resource designed [...] effective or appropriate for any given patient. [employer] does not assume any responsibility for any aspect of healthcare administered with the aid of information [employer] provides. The information contained herein is not intended to cover all possible uses, directions, precautions, warnings, drug interactions, allergic reactions, or adverse effects. If you have questions about the drugs you are taking, check with your doctor, nurse or pharmacist. Copyright 6602-7871 GetApp. Version: 16.. Revision Date: 07/22/2019. acetaminophen and hydrocodone (a SEET a MIN oh fen and imer droe KOE done) Hycet, Lorcet, [place], Verdrocet, Vicodin, Xodol, Zamicet What is the [...] may report side effects to FDA at 8-891-CVZ-6634. What other drugs will affect acetaminophen and [...] affect acetaminophen and hydrocodone, including prescription and adck-jpo-xgzfgqa medicines, vitamins, and herbal products. Not all [...] to ensure that the information provided by GetApp. ('Multum') is accurate, up-to-date, and complete, but no guarantee is made to that effect. Drug information contained herein may be time sensitive. [employer] information has been compiled for use by healthcare practitioners and consumers in the [place] and therefore [employer] does not warrant that uses outside of the [place] are appropriate, unless specifically indicated otherwise. DermaMedicss drug information does not endorse drugs, diagnose patients or recommend therapy. Cloneless drug information is an informational resource designed [...] effective or appropriate for any given patient. [employer] does not assume any responsibility for any aspect of healthcare administered with the aid of information [employer] provides. The information contained herein is not intended to cover all possible uses, directions, precautions, warnings, drug interactions, allergic reactions, or adverse effects. If you have questions about the drugs you are taking, check with your doctor, nurse or pharmacist. Copyright 7833-1951 GetApp. Version: 16.01. Revision Date: 07/22/2019. Emergency Awareness [...] Assistance with quitting is available by contacting 2-208-IWQI-NOW. This is a free resource providing counseling, [...] range between ( 1.0 and 7.0 ) [place] #: 0.41 K/uL -- Normal range between ( 0.24 and 0.82 ) Eos #: 0.25 K/uL -- Normal range between ( 0.04 and 0.54 ) [place] %: 7.5 % -- Normal range between [...] was given the opportunity to ask questions. Patient/Dry Molder Name: Patient/Dry Molder Signature: Relationship to Patient: Clinician/Hospital Dry Molder Signature: Date: Electronically signed by Audra Woodruff Conversion Senior Human Resources Representative Cerner at 11/21/2022 11:16 AM CDT documented in this encounter Plan of Treatment Upcoming Encounters Date Type Department Care Team (Late st Contact Info) Description 02/11/2025 10:00 AM EDT Office Visit [facility] Orthopedics - [address] [place] [address] Nick Rasmussen PA-C [address] [place] [address] 08/19/2025 9:30 AM EST Appointment [facility] [address] [facility] [address] [place] [address] documented as of this encounter Visit Diagnoses Not on filedocumented in this encounter Care Teams Primary Teacher Relationship Specialty Start Date End Date [facility] [place] [address] PCP - General 09/19/22 10/27/23 Lena Aguilera APRN [address] [place] [address] PCP - General Family Medicine 10/28/23 Nick Rasmussen PA-C [address] [place] [address] Orthopedic Surgery 08/07/23 Nimisha Nuñez PA-C [address] [place] [address] Physician Customer Contact Representative Orthopedic Surgery 02/05/24 documented as of this encounter
--- OUTSIDE RECORDS SUMMARY | 2024-12-30 09:16 | XMS_ITS | Encounter Summary ---
Author Organization [employer] ([place], [place], [place], [place]) Address [address] [place] [address] Care Team Providers Care Forest Economics Professor Name Role Phone Nick Rasmussen PA-C Unavailable [phone] Lena Aguilera APRN Primary Care Provider [phone] Nimisha Nuñez PA-C Unavailable [phone] Encounter Details Date Type Department Care Team [...] Date Vijay rded Speak language other than Malaysian at home Not on file 07/19/2023 Want [...] Upcoming Encounters Date Type Department Care Team ( st Contact Info) Description 02/11/2025 10:00 AM EDT Office Visit [facility] Orthopedics - [address] [place] [address] Nick Rasmussen PA-C [address] [place] [address] 08/19/2025 9:30 AM EST Appointment [facility] [address] [facility] [address] [place] [address] documented as of this encounter Visit Diagnoses Not on filedocumented in this encounter Care Teams Forest Economics Professor Relationship Specialty Start Date End Date Lena Aguilera, PIPE ORGAN TECHNICIAN [address] [place] [address] PCP - General Family Medicine 10/28/23 Nick Rasmussen PA-C [address] [place] [address] Orthopedic Surgery 08/07/23 Nimisha Nuñez PA-C [address] [place] [address] Physician Director Speech Language Orthopedic Surgery 02/05/24 documented as of this encounter
--- OUTSIDE RECORDS SUMMARY | 2024-12-30 09:16 | XMS_ITS | Encounter Summary ---
Author Organization [employer] ([place], [place], [place], [place]) Address [address] [place] [address] Care Team Providers Care Health Teacher Name Role Phone Krystyna Elliott [facility] Primary Care Provider Nick Rasmussen PA-C Unavailable [phone] Lena Aguilera APRN Primary Care Provider [phone] Nimisha Nuñez PA-C Unavailable [phone] Encounter Details Date Type Department Care Team (Late st Contact Info) Description 12/17/2019 Transcribed Document [facility] [address] [place] [address] Provider, Audra Hargrove MD Social [...] Note - [facility] Beena Ogden MD - 12/17/2019 10:59 AM EDT DATE OF PROCEDURE: 12/17/2019 SURGEON: Rell Del Cid MD PREOPERATIVE DIAGNOSIS: Right knee medial meniscus 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 POSTOPERATIVE DIAGNOSIS: Right knee medial meniscus 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 PROCEDURE PERFORMED: Right knee diagnostic arthroscopy with partial medial meniscectomy. CERTIFIED NURSE: Mary Valencia CFA ANESTHESIA: General. ESTIMATED BLOOD [...] tolerated the procedure well without any complications. /[id number] Rell Sylvain Del Cid MD ASC/AQ / ASC / MODL /[id number] documented in this encounter Plan of Treatment Upcoming Encounters Date Type Department Care Team (Late st Contact Info) Description 02/11/2025 10:00 AM EDT Office Visit [facility] Orthopedics - [address] [place] [address] Nick Rasmussen PA-C [address] [place] [address] 08/19/2025 9:30 AM EST Appointment [facility] [address] [facility] [address] [place] [address] documented as of this encounter Visit Diagnoses Not on filedocumented in this encounter Care Teams Health Teacher Relationship Specialty Start Date End Date [place] [facility] [address] [place] [address] PCP - General 09/19/22 10/27/23 Lena Aguilera APRN [address] [place] [address] PCP - General Family Medicine 10/28/23 Nick Rasmussen PA-C [address] [place], [place] [address] Orthopedic Surgery 08/07/23 Nimisha Nuñez PA-C [address] [place] [address] Physician Lockstitch Pocket Setter Orthopedic Surgery 02/05/24 documented as of this encounter
--- OUTSIDE RECORDS SUMMARY | 2024-12-30 09:16 | XMS_ITS | Encounter Summary ---
Author Organization [employer] ([place], [place], [place], [place]) Address [address] [place] [address] Care Team Providers Care Insurance Claims Clerk Name Role Phone Krystyna Elliott [facility] Primary Care Provider Nick Rasmussen PA-C Unavailable [phone] Lena Aguilera APRN Primary Care Provider [phone] Nimisha Nuñez PA-C Unavailable [phone] Encounter Details Date Type Department Care Team (Late st Contact Info) Description 12/17/2019 Transcribed Document [facility] [address] [place] [address] Provider, Audra Hargrove MD Social History Tobacco Use Types Packs/Day Years Used Date Smoking Tobacco: Never Assessed Comments Unknown Sex and Gender Information Value Date Recorded Sex Assigned at Not on file Legal Sex Female 6:57 PM CDT Gender Identity Not on file Sexual Orientation Not on file documented as of this encounter Miscellaneous Notes * Cerner Conversion Note - [facility] Beena ProviderMD - 12/17/2019 10:36 AM EDT [facility] Main OR PostOp Summary Primary Physician: DRAGAN FLAHERTY MD-ORT Finalized Date/Time: 12/17/19 11:48:29 Pt. Name: ANISA KATZISE /Sex: 1965 Female Med Rec #: [id number] Physician: DRAGAN FLAHERTY MD-ORT Financial #: [id number] Pt. Type: O Room/Bed: [facility]/4 Admit/Disch: 12/17/19 04:47:00 - Institution: [facility] Main OR PostOp Case Times Entry 1 In PACU II 12/17/19 10:40:00 Ready for PACU II 12/17/19 11:48:00 Discharge Discharge from PACU 12/17/19 11:48:00 II Last Modified By: Erin Orta RN 12/17/19 11:48:22 [facility] Main OR PostOp Case Times Audit 12/17/19 11:48:22 Product Development Assistant: SXPOWERS Modifier: HELFEP 1 <+> Ready for PACU II Discharge 1 <*> In PACU II 12/17/19 10:00:00 1 <+> Discharge from PACU II Finalized By: Erin Orta RN Document Signatures Signed By: Erin Orta RN 12/17/19 11:48 Electronically signed by Audra Woodruff Conversion Early Breastfeeding Care Specialist Cerner at 11/21/2022 11:16 AM CDT documented in this encounter Plan of Treatment Upcoming Encounters Date Type Department Care Team (Late st Contact Info) Description 02/11/2025 10:00 AM EDT Office Visit [facility] Orthopedics - [address] [place] [address] Nick Rasmussen PA-C [address] [place] [address] 08/19/2025 9:30 AM EST Appointment [facility] Breast [facility] [address] [facility] [address] [place] [address] documented as of this encounter Visit Diagnoses Not on filedocumented in this encounter Care Teams Insurance Claims Clerk Relationship Specialty Start Date End Date Krystyna Elliott [facility] [address] [address] PCP - General 09/19/22 10/27/23 Lena Aguilera, KALIN [address] [place] [address] PCP - General Family Medicine 10/28/23 Nick Rasmussen PA-C [address] [place], [place] [address] Orthopedic Surgery 08/07/23 Nimisha Nuñez PA-C [address] [place], [place] [address] Physician Firer Powerhouse Orthopedic Surgery 02/05/24 documented as of this encounter
--- OUTSIDE RECORDS SUMMARY | 2024-12-30 09:16 | XMS_ITS | Encounter Summary ---
Author Organization [employer] ([place], [place], [place], [place]) Address [address] [place] [address] Care Team Providers Care Three Dimensional Map Modeler Name Role Phone Krystyna Elliott [facility] Primary Care Provider Nick Rasmussen PA-C Unavailable Lena Aguilera APRN Primary Care Provider [phone] Nimisha Nuñez PA-C Unavailable [phone] Encounter Details Date Type Department Care Team (Late st Contact Info) Description 12/17/2019 Transcribed Document [facility] [address] [place] [address] Provider, Audra Hargrove MD Social History Tobacco Use Types Packs/Day Years Used Date Smoking Tobacco: Never Assessed Comments Unknown Sex and Gender Information Value Date Recorded Sex Assigned at Not on file Legal Sex Female 6:57 PM CDT Gender Identity Not on file Sexual Orientation Not on file documented as of this encounter Miscellaneous Notes * Cerner Conversion Note - [facility] Beena ProviderMD - 12/17/2019 10:36 AM EDT CAROLYN Main OR IntraOp Summary Primary Physician: DRAGAN FLAHERTY MD-ORT Finalized Date/Time: 12/17/19 11:02:35 Pt. Name: ANISA KATZISE /Sex: 1965 Female Med Rec #: [id number] Physician: DRAGAN FLAHERTY MD-ORT Financial #: [id number] Pt. Type: O Room/Bed: [facility]/4 Admit/Disch: 12/17/19 04:47:00 - [place] [facility] [place] Case Attendance Entry 1 Entry 2 Entry 3 Case Attendee DRAGAN FLAHERTY WICKER, KAREN KIM, GLASSWARE VERIFIER Esteban Abbasi RN MD-ORT Role Performed Surgeon/Proceduralist, GLASSWARE VERIFIER/Nurse Special Police Officer Riding Double, First First Time In 12/17/19 09:22:00 12/17/19 09:22:00 12/17/19 09:22:00 Time Out 12/17/19 09:59:00 12/17/19 09:59:00 12/17/19 09:59:00 Procedure Knee Arthroscopy Knee Arthroscopy Knee Arthroscopy Other Attendee Superficial Wound Closed By: Last Modified By: Esteban Abbasi, Esteban Tejada RN Horton, Jamie, RN 12/17/19 10:06:09 12/17/19 10:06:09 12/17/19 10:06:09 Entry 4 Entry 5 Entry 6 Case Attendee Flor Tapia, Mary Bazzi, Kian Ornelas, Scrub Assist Tech Role Performed Riding Double, Second Waterway Traffic Checker, First Scrub, Second Time In 12/17/19 09:22:00 12/17/19 09:22:00 12/17/19 09:22:00 Time Out 12/17/19 09:59:00 12/17/19 09:59:00 12/17/19 09:59:00 Procedure Knee Arthroscopy Knee Arthroscopy Knee Arthroscopy Other Attendee Superficial Wound Closed By: Last Modified By: Esteban Abbasi RN Horton, Jamie, RN Horton, Jamie, RN 12/17/19 10:06:09 12/17/19 10:06:09 12/17/19 10:06:09 Entry 7 Entry 8 Case Attendee OTHER, ATTENDEE OTHER, ATTENDEE #1 Role Performed Vendor Vendor Time In 12/17/19 09:22:00 12/17/19 09:22:00 Time Out 12/17/19 09:59:00 12/17/19 09:59:00 Procedure Knee Arthroscopy Knee Arthroscopy Other Attendee JULIO FAM Superficial Wound Closed By: Last Modified By: Esteban Abbasi, Esteban Tejada RN 12/17/19 10:06:09 12/17/19 10:06:09 [facility] IntraOp Case Attendance Audit 12/17/19 10:06:09 Case Aide: [id number] Modifier: [id number] 1 <*> Procedure Knee Arthroscopy 2 <*> Procedure Knee Arthroscopy 3 <*> Procedure Knee Arthroscopy 4 <*> Procedure Knee Arthroscopy 5 <*> Procedure Knee Arthroscopy 6 <*> Procedure Knee Arthroscopy 7 <*> Procedure Knee Arthroscopy 8 <*> Procedure Knee Arthroscopy 12/17/19 10:05:50 Case Aide: [id number] Modifier: [id number] 1 <+> Time Out 1 <*> Procedure [...] 8 <*> Procedure Knee Arthroscopy 12/17/19 09:38:00 Case Aide: [id number] Modifier: [id number] 1 <*> Procedure Knee Arthroscopy 2 <*> [...] 8 <*> Procedure Knee Arthroscopy 12/17/19 09:37:09 Case Aide: [id number] Modifier: [id number] 1 <+> Time In 1 <*> Procedure [...] [facility] IntraOp Case Times Audit 12/17/19 10:04:48 Case Aide: [id number] Modifier: [id number] <+> 1 Out Room Time <+> 1 Stop Time <+> 1 Stop Time 12/17/19 09:37:54 Case Aide: [id number] Modifier: [id number] <+> 1 Start Time SJE IntraOp Communication [...] Scrub (Scrub) Tech Count Performed By Esteban Abbasi, RN (RN) Last Modified By: Esteban Abbasi RN 12/17/19 10:06:10 S[facility] IntraOp Counts Verification Audit 12/17/19 10:06:10 Case Aide: [id number] Modifier: [id number] 1 <*> Procedure Knee Arthroscopy, Knee Arthroscopy 12/17/19 10:05:53 Case Aide: [id number] Modifier: [id number] 1 <*> Procedure Knee Arthroscopy S[facility] IntraOp Counts Final Entry 1 Procedure Knee Arthroscopy Final Count Info Count Type Sponge, Sharps Counts Verification Skin Closure/end of Sequence procedure Count Results Correct, surgeon notified Counts Performed By Count Performed By Kian Elliott, Elisabetub (Scrub) Tech Count Performed By Esteban Abbasi RN (RN) Last Modified By: Esteban Abbasi RN 12/17/19 10:06:11 S[facility] IntraOp Counts Final Audit 12/17/19 10:06:11 Case Aide: [id number] Modifier: [id number] 1 <*> Procedure Knee Arthroscopy, Knee Arthroscopy 12/17/19 10:05:55 Case Aide: [id number] Modifier: [id number] 1 <*> Procedure Knee Arthroscopy SJE IntraOp Departure from OR Entry 1 Integumentary Assessment Integumentary WDL Assessment WDL Transfer/Handoff Transfer to PACU Phase I Handoff Method Bedside/Face to face Post-op Transport Stretcher/Gurney Via Patient Transport Esteban Abbasi RN, Accompanied by MATTEO BOWER, PRISCILLA, Flor Tapia RN Last Modified By: Esteban Abbasi RN 12/17/19 09:43:33 SJE IntraOp Dressing [...] RN 12/17/19 09:44:01 SJE IntraOp General Case Safety Physician 1 Case Information OR OR 10 SJE [...] 0.5% 30ml vial Xylocaine 0.5% w/ - [id number] epinephrine 1:200,000 50ml vial - [id number] Combo Med List 1 - Combo Med 1 - Combo Med Time Administered Route of INJECTION INJECTION Administration Dose Dose 30 50 Unit of Measure ml ml Volume 20 ML 10 Administered By Mary Valencia [place], Crystal, First Assist Assist Procedure Irrigation Irrigant Volume In Irrigant Volume Out Last Modified By: Esteban Abbasi RN Horton, Jamie, RN 12/17/19 09:47:46 [...] Strap, Chest Positioned By MATTEO BOWER CRNA, Flor Tapia RN, Mary Valencia First Assist, DRAGAN FLAHERTY MD-ORT Position Verified Positioning Yes Verified by Anesthesia Positioning Yes Verified by Surgeon Last Modified By: Esteban Abbasi RN 12/17/19 10:06:11 General Comments: ZOYA LEG OSBORN ON RIGHT LEG; XPlace LEG OSBORN ON LEFT SIDE SJE IntraOp Patient Positioning Audit 12/17/19 10:06:11 Case Aide: [id number] Modifier: [id number] 1 <*> Procedure Knee Arthroscopy, Knee Arthroscopy 12/17/19 10:05:54 Case Aide: [id number] Modifier: [id number] 1 <*> Procedure 1 <*> Procedure Knee [...] Modified By: Esteban Abbasi RN 12/17/19 09:52:16 S[facility] IntraOp Sign In Audit 12/17/19 09:52:16 Case Aide: [id number] Modifier: [id number] <+> 1 Medication Checks Completed <+> 1 [...] Assessment WDL Prep Agents Chloraprep Prep by Flro Tapia RN Hair Removal Methods No hair removal performed Last Modified By: Esteban Abbasi RN 12/17/19 10:06:11 General Comments: PREPPED TOURNIQUET TO TOES- RIGHT S[facility] IntraOp Skin Prep Audit 12/17/19 10:06:11 Case Aide: [id number] Modifier: [id number] 1 <*> Procedure Knee Arthroscopy, Knee Arthroscopy 12/17/19 10:05:55 Case Aide: [id number] Modifier: [id number] 1 <*> Procedure Knee Arthroscopy SJE IntraOp [...] SJE IntraOp Surgical Procedures Audit 12/17/19 10:06:46 Case Aide: [id number] Modifier: [id number] 1 <*> Procedure Knee Arthroscopy 1 <*> [...] Yes Padded Under Cuff Applied By Mary Valencia, It Support Manager Removed By Mary Valencia, It Support Manager Times Start Time 12/17/19 09:36:00 Stop Time 12/17/19 09:54:00 Last Modified By: Esteban Abbasi RN 12/17/19 10:08:40 Case Comments <None> Finalized By: Flor Tapia RN Document Signatures Signed By: Esteban Abbasi RN 12/17/19 10:09 Flor Tapia RN 12/17/19 11:02 Unfinalized History Date/Time Username Reason for Unfinalizing Freetext Reason for Unfinalizing 12/17/19 10:51 [id number] Correct Documentation documented in this encounter Plan of Treatment Upcoming Encounters Date Type Department Care Team (Late st Contact Info) Description 02/11/2025 10:00 AM EDT Office Visit [facility] Orthopedics - [address] [place] [address] Nick Rasmussen PA-C [address] [place] [address] 08/19/2025 9:30 AM EST Appointment [facility] [address] [place] [address] documented as of this encounter Visit Diagnoses Not on filedocumented in this encounter Care Teams Three Dimensional Map Modeler Relationship Specialty Start Date End Date [facility] [address] [address] PCP - General 09/19/22 10/27/23 Lena Aguilera, TRAVELERS' AID WORKER [address] [place] [address] PCP - General Family Medicine 10/28/23 Nick Rasmussen PA-C [address] [place] [address] Orthopedic Surgery 08/07/23 Nimisha Nuñez PA-C [address] [place] [address] Physician Waterway Traffic Checker Orthopedic Surgery 02/05/24 documented as of this encounter
--- OUTSIDE RECORDS SUMMARY | 2024-12-30 09:18 | XMS_ITS | Encounter Summary ---
Author Organization [employer] ([place], [place], [place], [place]) Address [address] [place] [address] Care Team Providers Care Hot Tamale Man Name Role Phone Nick Rasmussen PA-C Unavailable Lena Aguilera APRN Primary Care Provider [phone] Nimisha Nuñez PA-C Unavailable [phone] Encounter Details Date Type Department Care Team (Late st Contact Info) Description 12/18/2024 Orders Only [facility] Neurology - [facility] [address] [place] [address] Provider, MD Beena [facility] [place] [address] Social History Tobacco Use Types Packs/Day Years [...] Date Vijay rded Speak language other than New Zealander at home Not on file 07/19/2023 Want [...] Description 02/11/2025 10:00 AM EDT Office Visit [facility] Orthopedics - [address] [place] [address] Nick Rasmussen PA-C [address] [place] [address] 08/19/2025 9:30 AM EST Appointment [facility] [address] [place] [address] documented as of this encounter Procedures Procedure Name Priority Date/Time Associated Diagnosis Comments EMG W/NCS Routine 12/18/2024 1:44 PM EDT documented in this encounter Results * EMG W/ NCS (12/18/2024 1:44 PM EDT) Anatomical Region Laterality Modality Other us Historical Provider NEUROLOGY ORDERABLES (MCT ) Final Result documented in this encounter Visit Diagnoses Not on filedocumented in this encounter Care Teams Hot Tamale Man Relationship Specialty Start Date End Date Lena Aguilera APRN [address] [place] [address] PCP - General Family Medicine 10/28/23 Nick Rasmussen PA-C [address] [place] [address] Orthopedic Surgery 08/07/23 Nimisha Nuñez PA-C [address] [place] [address] Physician Belt Press Operator Orthopedic Surgery 02/05/24 documented as of this encounter
--- OUTSIDE RECORDS SUMMARY | 2024-12-30 09:18 | XMS_ITS | Encounter Summary ---
Author Organization [employer] ([place], [place], [place], [place]) Address [address] [place] [address] Care Team Providers Care Steward/Stewardess Dining Room Name Role Phone Nick Rasmussen PA-C Unavailable [phone] Lena Aguilera APRN Primary Care Provider [phone] Nimisha Nuñez PA-C Unavailable [phone] Encounter Details Date Type Department Care Team (Latest Contact Info) Description 12/18/2024 Travel Social History Tobacco Use Types Packs/Day [...] Date Vijay rded Speak language other than Samoan at home Not on file 07/19/2023 Want [...] Encounters Date Type Department Care Team ( Contact Info) Description 02/11/2025 10:00 AM EDT Office Visit [facility] Orthopedics - [address] [place] [address] Nick Rasmussen PA-C [address] [place] [address] 08/19/2025 9:30 AM EST Appointment [facility] [address] [facility] [address] [place] [address] documented as of this encounter Visit Diagnoses Not on filedocumented in this encounter Care Teams Steward/Stewardess Dining Room Relationship Specialty Start Date End Date Lena Aguilera, AIR SURVEILLANCE OPERATOR [address] [place] [address] PCP - General Family Medicine 10/28/23 Nick Rasmussen PA-C [address] [place] [address] Orthopedic Surgery 08/07/23 Nimisha Nuñez PA-C [address] [place] [address] Physician Voice Intercept Technician Orthopedic Surgery 02/05/24 documented as of this encounter
--- OUTSIDE RECORDS SUMMARY | 2024-12-30 09:18 | XMS_ITS | Encounter Summary ---
Author Organization [employer] ([place], [place], [place], [place]) Address [address] [place] [address] Care Team Providers Care Tempering Machine Operator Name Role Phone Nick Rasmussen PA-C Unavailable [phone] Lena Aguilera APRN Primary Care Provider [phone] Nimisha Nuñez PA-C Unavailable [phone] Reason for Referral * Mammography (Routine) - New Request Specialty Diagnoses / Procedures Referred By Kai robins Referred To Contact Radiology Diagnoses Screening mammogram for breast cancer Procedures MM digital mammo screen with phyllis bilateral Lena Aguilera APRN [address] [place] [address] Phone: tel: fax: [facility] [address] [place] [address] Phone: tel: fax: Referral ID Status Reason Start Date Expiration Date V isits Requested Visits Authorized [id number] New Request 08/12/2024 08/12/2025 1 1 Encounter Details Date Type Department Care Team (Late st Contact Info) Description 08/12/2024 Outside Orders [facility] Central Scheduling 1 [place] [address] Lena Aguilera APRN [address] [place] [address] Screening mammogram for breast cancer [...] Date Vijay rded Speak language other than Guyanese at home Not on file 07/19/2023 Want [...] Description 02/11/2025 10:00 AM EDT Office Visit [facility] Orthopedics - [address] [place] [address] Nick Rasmussen PA-C [address] [place] [address] 08/19/2025 9:30 AM EST Appointment [facility] [address] [facility] [address] [place] [address] documented as of this encounter [...] the next mammogram. At our facility, a inaja marker is positioned over a visible skin [...] isodense mass, recommend ultrasound. Lena Aguilera APRN IM MAMMOGRAPHY ORDERABLES Fin al Result documented in this encounter Visit Diagnoses Diagnosis Screening mammogram for breast cancer- Primary Screening mammogram for breast cancer documented in this encounter Care Teams Tempering Machine Operator Relationship Specialty Start Date End Date Lena Aguilera APRN [address] [place] [address] PCP - General Family Medicine 10/28/23 Nick Rasmussen PA-C [address] [place] [address] Orthopedic Surgery 08/07/23 Nimisha Nuñez PA-C [address] [place], [place] [address] Physician Call Or Contact Centre Team Leader Orthopedic Surgery 02/05/24 documented as of this encounter
--- OUTSIDE RECORDS SUMMARY | 2024-12-30 09:19 | XMS_ITS | Encounter Summary ---
Author Organization [employer] ([place], [place], [place], [place]) Address [address] [place] [address] Care Team Providers Care Bilingual Social Worker Name Role Phone Krystyna Elliott [facility] Primary Care Provider Nick Rasmussen PA-C Unavailable Lena Aguilera APRN Primary Care Provider [phone] Nimisha Nuñez PA-C Unavailable [phone] Encounter Details Date Type Department Care Team (Late st Contact Info) Description 12/17/2019 Transcribed Document [address] [address] Provider, Audra Hargrove MD Social History Tobacco Use Types Packs/Day Years Used Date Smoking Tobacco: Never Assessed Comments Unknown Sex and Gender Information Value Date Recorded Sex Assigned at Not on file Legal Sex Female 6:57 PM CDT Gender Identity Not on file Sexual Orientation Not on file documented as of this encounter Miscellaneous Notes * Cerner Conversion Note - [facility] Beena ProviderMD - 12/17/2019 10:36 AM EDT CAROLYN Main OR PACU Summary Primary Physician: DRAGAN FLAHERTY MD-ORT Finalized Date/Time: 12/17/19 10:50:47 Pt. Name: ANISA KATZISE /Sex: 1965 Female Med Rec #: [id number] Physician: DRAGAN FLAHERTY MD-ORT Financial #: [id number] Pt. Type: O Room/Bed: [facility]/4 Admit/Disch: 12/17/19 04:47:00 - Institution: [facility] Main OR PACU Case Times Entry 1 [...] Description 02/11/2025 10:00 AM EDT Office Visit [facility] Orthopedics - [facility] [address] [place] [address] Nick Rasmussen PA-C [address] [place] [address] 08/19/2025 9:30 AM EST Appointment [facility] [address] [facility] [address] [place] [address] documented as of this encounter Visit Diagnoses Not on filedocumented in this encounter Care Teams Bilingual Social Worker Relationship Specialty Start Date End Date [place] [facility] [facility] [place] [address] PCP - General 09/19/22 10/27/23 Lena Aguilera, KALIN [address] [place] [address] PCP - General Family Medicine 10/28/23 Nick Rasmussen PA-C [address] [place] [address] Orthopedic Surgery 2/7/24 Nimisha Nuñez PA-C [address] [place] [address] Physician Respiratory Therapy Technician Orthopedic Surgery 02/05/24 documented as of this encounter
--- OUTSIDE RECORDS SUMMARY | 2024-12-30 09:19 | XMS_ITS | Encounter Summary ---
Author Organization [employer] ([place], [place], [place], [place]) Address [address] [place] [address] Care Team Providers Care Horse Show Manager Name Role Phone Krystyna Elliott [facility] Primary Care Provider Nick Rasmussen PA-C Unavailable [phone] Lena Aguilera APRN Primary Care Provider [phone] Nimisha Nuñez PA-C Unavailable [phone] Encounter Details Date Type Department Care Team (Late st Contact Info) Description 12/03/2019 Transcribed Document [facility] Radiology [address] [place] [address] Provider, Audra Hargrove MD Social History Tobacco Use Types Packs/Day Years Used Date Smoking Tobacco: Never Assessed Comments Unknown Sex and Gender Information Value Date Recorded Sex Assigned at Not on file Legal Sex Female 6:57 PM CDT Gender Identity Not on file Sexual Orientation Not on file documented as of this encounter Miscellaneous Notes * Cerner Conversion Note - [facility] Beena ProviderMD - 12/03/2019 9:50 AM EDT Patient: ANISA KATZ Age: 54 Years Sex: Female : 1965 Chief Complaint Right Knee Pain Primary Care Provider NEYDA JOINER (REF), HOUSEKEEPER HEAD-FAM History of Present Illness This patient is [...] # 1.08 K/uL (Low) 12/03/2019 08:43 EDT [place] % 7.5 % 12/03/2019 08:43 EDT [place] # 0.41 K/uL 12/03/2019 08:43 EDT Eos [...] Description 02/11/2025 10:00 AM EDT Office Visit [facility] Orthopedics - [address] [place] [address] Nick Rasmussen PA-C [address] [place] [address] 08/19/2025 9:30 AM EST Appointment [facility] Breast [facility] [address] [facility] [address] [place] [address] documented as of this encounter Visit Diagnoses Not on filedocumented in this encounter Care Teams Horse Show Manager Relationship Specialty Start Date End Date [facility] At [address] [id number] PCP - General 09/19/22 10/27/23 Lena Aguilera, COMPUTER PROGRAMMER [address] [place] [address] PCP - General Family Medicine 10/28/23 Nick Rasmussen PA-C [address] [place] [address] Orthopedic Surgery 08/07/23 Nimisha Nuñez PA-C [address] [place] [address] Physician Change Management Coordinator Orthopedic Surgery 02/05/24 documented as of this encounter
--- OUTSIDE RECORDS SUMMARY | 2024-12-30 09:19 | XMS_ITS | Encounter Summary ---
Author Organization [employer] ([place], [place], [place], [place]) Address [address] [place] [address] Care Team Providers Care Occupational Health Nurse Manager Name Role Phone Krystyna Elliott [facility] Primary Care Provider Nick Rasmussen PA-C Unavailable [phone] Lena Aguilera APRN Primary Care Provider [phone] Nimisha Nuñez PA-C Unavailable [phone] Encounter Details Date Type Department Care Team (Late st Contact Info) Description 12/17/2019 Transcribed Document [address] [address] Provider, Audra Hargrove MD Social History Tobacco Use Types Packs/Day Years Used Date Smoking Tobacco: Never Assessed Comments Unknown Sex and Gender Information Value Date Recorded Sex Assigned at Not on file Legal Sex Female 6:57 PM CDT Gender Identity Not on file Sexual Orientation Not on file documented as of this encounter Miscellaneous Notes * Cerner Conversion Note - [facility] Beena ProviderMD - 12/17/2019 10:36 AM EDT CAROLYN Main OR PreOp Summary Primary Physician: DRAGAN FLAHERTY MD-ORT Finalized Date/Time: 12/17/19 10:46:48 Pt. Name: ANISA KATZISE /Sex: 1965 Female Med Rec #: [id number] Physician: DRAGAN FLAHERTY MD-ORT Financial #: [id number] Pt. Type: O Room/Bed: [facility]/4 Admit/Disch: 12/17/19 04:47:00 - Institution: [facility] PreOp Case Times Entry 1 In Preop 12/17/19 06:50:00 Ready for Holding n/a Room Patient Ready for 12/17/19 08:36:00 Surgery Patient Out of Preop 12/17/19 09:30:00 Patient Out of n/a Holding Room Last Modified By: ELIGIO SCALES 12/17/19 10:46:47 Kiara PreOp Case Times Audit 12/17/19 10:46:47 Cooking Casing And Drying Supervisor: SHALINI Modifier: [email or web address] <+> 1 Patient Out of Preop 12/17/19 08:36:21 Cooking Casing And Drying Supervisor: SHALINI Modifier: [email or web address] <+> 1 Patient Ready for Surgery Finalized By: ELIGIO SCALES Document Signatures Signed By: ELIGIO SCALES 12/17/19 10:46 Electronically signed by Ranjan [facility] Conversion Senior Technical Business Analyst Cerner at 11/21/2022 11:15 AM CDT documented in this encounter Plan of Treatment Upcoming Encounters Date Type Department Care Team (Late st Contact Info) Description 02/11/2025 10:00 AM EDT Office Visit [facility] Orthopedics - [address] [place] [address] Nick Rasmussen PA-C [address] [place] [address] 08/19/2025 9:30 AM EST Appointment [facility] Breast [facility] [address] [facility] [address] [place] [address] documented as of this encounter Visit Diagnoses Not on filedocumented in this encounter Care Teams Occupational Health Nurse Manager Relationship Specialty Start Date End Date Krystyna Elliott [facility] At [address] [address] PCP - General 09/19/22 10/27/23 Lena Aguilera, KALIN [address] [place] [address] PCP - General Family Medicine 10/28/23 Nick Rasmussen PA-C [address] [place], [place] [id number] Orthopedic Surgery 08/07/23 Nimisha Nuñez PA-C [address] [place], [place] [id number] Physician Medical And Health Services Manager Orthopedic Surgery 02/05/24 documented as of this encounter
--- OUTSIDE RECORDS SUMMARY | 2024-12-30 09:19 | XMS_ITS | Encounter Summary ---
Author Organization [employer] ([place], [place], [place], [place]) Address [address] [place] [address] Care Team Providers Care Anesthesiology Technologist Name Role Phone Krystyna Elliott [facility] Primary Care Provider Nick Rasmussen PA-C Unavailable [phone] Lena Aguilera APRN Primary Care Provider [phone] Nimisha Nuñez PA-C Unavailable [phone] Encounter Details Date Type Department Care Team (Late st Contact Info) Description 12/03/2019 Transcribed Document [facility] [address] [place] [address] Provider, Audra Hargrove MD Social History Tobacco Use Types Packs/Day Years Used Date Smoking Tobacco: Never Assessed Comments Unknown Sex and Gender Information Value Date Recorded Sex Assigned at Not on file Legal Sex Female 6:57 PM CDT Gender Identity Not on file Sexual Orientation Not on file documented as of this encounter Miscellaneous Notes * Cerner Conversion Note - [facility] Beena ProviderMD - 12/03/2019 9:36 AM EDT [...] Source : Stated Height Entry Format : [place] Height, Feet : 5 ft(Converted to: 152 cm, 60 Inch) Height, Inches : 3 Inch(Converted to: 0 ft 3 Inch, 7.62 cm) Clinical Height : 160.02 cm Weight Source : Standing scale Weight Entry Format : [place] Clinical Dosing Weight : 100.91 kg Weight, Pounds : 222 lb Body Surface Area (BSA) : 2.02 m2 Body Mass Index : 39.4 kg/m2 (ID) Sutter Body Weight : 52 kg ROSALINE MCKEON [...] ROSALINE MCKEON RN - 12/03/2019 8:36 EDT [place] Suicide Severity Rating Scale (C-SSRS) CSSRS Past [...] #2 Relationship : - Primary Language : [place] Communication Barrier : None ROSALINE MCKEON RN [...] Description 02/11/2025 10:00 AM EDT Office Visit [facility] - [address] [place] [address] Nick Rasmussen PA-C [address] [place] [address] 08/19/2025 9:30 AM EST Appointment [facility] [address] [place] [address] documented as of this encounter Visit Diagnoses Not on filedocumented in this encounter Care Teams Anesthesiology Technologist Relationship Specialty Start Date End Date Krystyna Elliott [place] [id number] PCP - General 09/19/22 10/27/23 Lena Aguilera, KALIN [address] [place] [address] PCP - General Family Medicine 10/28/23 Nick Rasmussen PA-C [address] [place] [address] Orthopedic Surgery 08/07/23 Nimisha Nuñez PA-C [address] [place] [address] Physician Solo Truck Driver Orthopedic Surgery 02/05/24 documented as of this encounter
--- NOTE | 2024-12-30 10:00 | CA_ITS ---
APPROVED REPORT EXAM: Comprehensive 2D, Doppler, and color-flow Echocardiogram Grab Driver: Allyson Modi RT(R) Ht: 5 ft 3 in Wt: 195lbs BSA: 1.91 BP: 126/83 mmHg Indications: chest pain, dyspnea on exertion 2D Dimensions Left Atrium 2.86 cm F: 2.7 - 3.8 LA Volume 25.80 mL LVOT 1.95 cm (M/F) 1.5-2.5 LA Volume Index 13.51 mL/m2 (M/F) 16-34 EF AP4 52.10 % GL Strain -19.9 % M-Mode Dimensions RVDd 3.98 cm (0.9-2.6) LVDd 4.13 cm (3.5-5.7) Ao Diam 2.36 cm (2.0-3.7) LVDs 2.73 cm (3.5-5.7) IVSd 0.87 cm (0.6-1.1) PWd 0.80 cm (0.6-1.1) EF (Teich) 63.20% FS 33.90% EDV (Teich) 75.50 mL ESV (Teich) 27.80 mL LV Diastology E Decel Time 214 (160-240 msec) E/A Ratio 1.2 MED E' 7.1 (>= 7 cm/sec) E'/MED E' Ratio 13.49 (<= 14) LAT E' 9.5 (>= 10 cm/sec) E/LAT E' Ratio 10.08 (<= 14) Mitral Valve MV E Max Mazin. 96.0 (40-130 cm/s) MV A Velocity 79.0 (40-130 cm/s) E/A Ratio 1.22 MV Decel. Time 214 (160-240 ms) Tricuspid Valve TR P. Velocity 285.00 cm/s Left Ventricle The left ventricle is normal size. The left ventricular systolic function is normal. The left ventricular ejection fraction is within the normal range. There is normal left ventricular wall thickness. There is normal LV segmental wall motion. The left ventricular diastolic function is normal. LVEF is 55%. Right Ventricle The right ventricle is normal size. The right ventricular systolic function is normal. Atria The left atrium is mildly dilated. The right atrium is mildly dilated. Color Doppler is indeterminate for evaluation of interatrial shunt. Aortic Valve The aortic valve is mildly thickened. There is no aortic valvular stenosis. Trace aortic regurgitation. Mitral Valve The mitral valve is normal in structure. No evidence of mitral valve stenosis. Mild mitral regurgitation. Tricuspid Valve Tricuspid valve is grossly normal in structure and function. Mild tricuspid regurgitation. RVSP is 30-35 mmHg. Pulmonic Valve The pulmonary valve is normal in structure. Mild pulmonic regurgitation. Great Vessels The aortic root is normal in size. IVC is normal in size and collapses >50% with inspiration. Pericardium There is no pericardial effusion. Other Information Study Quality: Fair Conclusion Normal biventricular systolic function. Mild biatrial dilation. Mild MR, mild TR. RVSP is 30-35 mmHg. Color Doppler is indeterminate for evaluation of interatrial shunt. Electronically signed by : Radha Rodriguez MD 12/31/2024 13:17:20
--- NOTE | 2024-12-30 12:30 | NM_ITS ---
APPROVED REPORT Exam: Nuclear Stress Test Indication: cp..soa..syncope Patient Location: Outpatient Stress Tech: Kathy Chaney [place] Tech:JONAS Tidwell RT(R)(N) Ht: 5 ft 3 in Wt: 195 lbs Bra Size: 40dd HR: 57 bpm BP: 144/74 mmHg BSA: 1.91 m2 TID: 1.41 BMI: 34.5 History: cp..soa..syncope Procedure: Patient received 0.4 mg of intravenous Lexiscan, resting heart rate 57 bpm, resting blood pressure 144/74 mmHg, with Lexiscan maximum heart rate achieved was 86 bpm which is 85 % of the maximum predicted heart rate and blood pressure was 141/73 mmHg. With Lexiscan, patient denied any complaint of chest pain. Cardiac Stress and Resting SPECT Images: Cardiac Stress and Resting SPECT images were obtained using technetium 99m Myoview 30.2 mCi stress and 10.51 mCi at rest. Resting and stress imaging in supine and prone positions demonstrate no evidence of fixed or reversible perfusion defects. There is increase in transient ischemic dilatation ratio (TID 1.41), which may be suggestive of possible multivessel disease or balanced ischemia. Gated imaging demonstrates normal global and regional LV systolic function. LVEF is calculated at 68%. Conclusion: No evidence of fixed or reversible perfusion defects. There is increase in transient ischemic dilatation ratio (TID 1.41), which may be suggestive of possible multivessel disease or balanced ischemia. Gated imaging demonstrates normal global and regional LV systolic function. LVEF is calculated at 68%. Electronically signed by : Radha Rodriguez MD 12/30/2024 17:26:11
[2024-12-30] MEDS: ISOTOPE MYOVIEW (PER STUDY) 1 DOSE IV (14:42)
[2024-12-30] MEDS: SODIUM CHLORIDE 0.9% 10ML SYR (RAD ONLY) 10 ML IV ×2 (14:42)
== END 2024-12-30 23:59 | disposition home or self-care (01) ==
LOC: RT 09:14
PROVIDERS: PCP Family Medicine; Visit Provider Family Medicine
DX: I08.1 Rheumatic disorders of both mitral and tricuspid valves (principal); I49.3 Ventricular premature depolarization; I20.89 Other forms of angina pectoris; E03.9 Hypothyroidism, unspecified; R42 Dizziness and giddiness; R55 Syncope and collapse; R73.03 Prediabetes; R61 Generalized hyperhidrosis; R94.39 Abnormal result of other cardiovascular function study; R94.31 Abnormal electrocardiogram [ECG] [EKG]; Z82.49 Family history of ischemic heart disease and other diseases of the circulatory system
CPT/HCPCS: 78452; 93016; 93017; 93018; 93306; A9502; J2785

== ENCOUNTER 2025-01-18 08:10 | Outpatient (CLI) | payer OTHER, SELFPAY ==
--- OUTSIDE RECORDS SUMMARY | 2024-11-19 09:30 | XMS_ITS | Encounter Summary ---
Author Organization [employer] ([place], [place], [place], [place]) Address [address] [place] [address] Care Team Providers Care Accounting Specialist Name Role Phone Nick Rasmussen PA-C Unavailable [phone] Lena Aguilera APRN Primary Care Provider [phone] Nimisha Nuñez PA-C Unavailable [phone] Reason for Referral * Other (Routine) - Closed Specialty Diagnoses / Procedures Referred By Kai robins Referred To Contact Neurology Diagnoses Numbness and tingling of both upper extremities Procedures EMG W/ NCS Nick Rasmussen PA-C [address] [place] [address] Phone: tel: fax: Sharda Dexter MD [address] [facility] [address] [place] [address] Phone: tel: fax: Referral ID Status Reason Start Date Expiration Date Visits Re quested Visits Authorized [id number] Closed 11/19/2024 11/19/2025 1 1 * Diagnostic X-Ray (Routine) - Closed Specialty Diagnoses / Procedures Referred By Contflakita t Referred To Contact Radiology Diagnoses Bilateral foot pain Procedures XR FOOT BILATERAL 3 VIEW Weight Bearing Nick Rasmussen PA-C [address] [place] [address] Phone: tel: fax: [facility] [address] [address] Phone: tel: fax: Referral ID Status Reason Start Date Expiration Date Visits Re quested Visits Authorized [id number] Closed 11/19/2024 11/19/2025 1 1 * Diagnostic X-Ray (Routine) - Closed Specialty Diagnoses / Procedures Referred By Kai t Referred To Contact Radiology Diagnoses Bilateral hand pain Procedures X-ray hand bilateral PA lateral and oblique Nick Rasmussen PA-C [address] [place] [address] Phone: tel: fax: [facility] [address] [address] Phone: tel: fax: Referral ID Status Reason Start Date Expiration Date Visits Re quested Visits Authorized [id number] Closed 11/19/2024 11/19/2025 1 1 Reason for Visit * Reason Comments Bilateral foot and hand pain Encounter Details Date Type Department Care Team (Late st Contact Info) Description 11/19/2024 9:30 AM EDT Office Visit [facility] - [place] [phone] Nick Rasmussen PA-C [address] [place] [phone] Numbness and tingling of both upper extremities (Primary Dx); Bilateral hand pain; Bilateral foot pain; Calcaneal spur of left foot; Primary osteoarthritis of both hands; De Quervain's tenosynovitis, left; Multiple joint pain Social History Tobacco Use Types Packs/Day Years [...] Date Vijay rded Speak language other than French at home Not on file 07/19/2023 Want [...] Sign Reading Time Taken Comments Blood Pressure 141/82 11/19/2024 10:14 AM EDT Pulse 73 11/19/2024 10:14 AM EDT Temperature - - Respiratory Rate - - Oxygen Saturation - - Inhaled Oxygen Concentration - - Weight 88.5 kg (195 lb) 11/19/2024 10:14 AM EDT Height 160 cm (5' 3 ) 11/19/2024 10:14 AM EDT Body Mass Index 34.54 11/19/2024 10:14 AM EDT documented in this encounter Progress Notes * Nick Rasmussen PA-C - 11/19/2024 9:30 AM EDT NAME: Anisa Hernandes CSN: [id number] : 1965 PCP: Lena Aguilera APRN REASON FOR VISIT Bilateral foot and hand pain HPI Anisa Hernandes is a right hand dominant 59 y.o. female who presents today as an established patient with a new complaint of bilateral hand pain. Patient denies previous trauma. She reports her pain has been present for two months. Patient reports symptoms are located diffusely throughout hand. Patient describes their symptoms as throbbing and tingling. She reports intermittent numbness and tingling that starts in her shoulder and radiates into her hands. She states this happens at least twice a week. She states when she sleeps her hands will go numb. Alleviating factors include Tylenol and Aleve. Exacerbating factors include constantly using hands and working. 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 Patient rates their pain as 2/10. She also presents today for bilateral foot pain. She states her pain has been present for two yearswithout any known injury or trauma. She states her pain is located over the lateral and dorsal aspect of her left foot. She states her left foot symptoms are more severe. She describes the pain as a constant sharp aching pain that is worse with climbing ladders and prolonged standing. Alleviating fa ctors include elevating and rest. She reports increased cramping at night in her legs and feet. Thepatient has not been previously treated for this condition. Patient rates their pain 0/10. Patient ambulates unassisted. CURRENT MEDICATIONS Current Outpatient Medications Medication Instructions [...] WITH POLYPECTOMY; Surgeon: Stephani Romero MD; Location: [facility]; Service: Gastroenterology; Laterality: N/A; HYSTERECTOMY KNEE SURGERY NM COLON CA SCRN NOT HI RSK IND [...] skin discoloration, no history or MRSA Neuro: See HPI Endo: No cold/heat intolerance Heme: No abnormal bruising or bleeding Psych: No depression, no anxiety, no fatigue, no mood swings. Scribe Attestation: IDenice CMA acted as a scribe and transcribed components of the current encounter under the direction of the Attending Provider. I have not been involved in providingany clinical treatments or patient care. Electronically Signed, Denice Ruiz CMA OBJECTIVE Vitals: 11/19/24 1014 BP: (!) 141/82 Pulse: 73 Weight: 88.5 kg (195 lb) Height: 1.6 m (5' 3 ) Physical Exam Vitals reviewed. Constitutional: Appearance: Normal appearance. HENT: Head: Normocephalic and atraumatic. Skin: General: Skin is warm and dry. Capillary Refill: Capillary refill takes less than 2 seconds. Findings: No bruising or erythema. Neurological: Mental Status: alert and oriented to person, place, and time. Gait: Gait abnormal. Psychiatric: Mood and Affect: Mood normal. Behavior: Behavior normal. Ortho Exam Bilateral Wrist/Hand Exam Appearance: - effusion, - localized swelling, - deformity, -masses, - nodules Tenderness to palpation: - distal phalanx digits 1-5, - DIP digits 2-5, - middle phalanx digits 2-5, - PIP digits 2-5, - proximal phalanx digits 1-5, - MCP digits 1-5, - metacarpal tenderness, - scaphoid/snuff box, - scapholunate, - lunate, - TFCC, - DRUJ, - distal radius, - ulnar styloid/distal ulna. ROM: 80 degrees of flexion and 70 degrees of extension at the wrist; able to make a fist; thumb opposition to pinky intact; thumb abduction intact Testing: +Finklesteins left, - Qureshi's, - DRUJ, - TFCC compression test, - Grind test 1st CMC, +Phalen's and +Tinel's right Strength: 4/5 Flexion and Extension at wrist; 4/5 scada engineer strength Neurovascular: capillary refill WNL, 2+ Radial pulse, +skin disturbance in median nerve distribution bilateral (less severe in left) Skin: normal appearance with no discoloration or wounds Right Ankle/Foot Exam Appearance: - effusion, - localized swelling, -masses, -pes planus, - pes cavus, - bunion, -hammertoes Tenderness to palpation: - Medial malleolus, - Lateral malleolus, - ATFL, - PTFL, - CF, -Deltoid ligament, - anterior joint, - achilles tendon, - peroneal tendons, - posterior tibialis, - medial midfoot, - lateral midfoot, - Metatarsal tenderness, - phalange tenderness, -calcaneal tenderness, -plantar fascia tenderness ROM: dorsiflexion 10 degrees, plantarflexion 45 degrees, normal eversion, normal inversion, -crepitus throughout ROM Strength: 4/5 Testing: - anterior drawer, - talar tilt, - squeeze test of tibial and fibula, - Pittsburgh test, -too many toes sign, - Metatarsal squeeze test, - Calcaneal squeeze, - crepitus along plantar fascia Neurovascular: NVI, -Homans Skin: normal appearance with no discoloration or wounds Left Ankle/Foot Exam Appearance: - effusion, +lateral swelling, -masses, -pes planus, - pes cavus, - bunion, -hammertoes Tenderness to palpation: - Medial malleolus, - Lateral malleolus, +ATFL, - PTFL, - CF, -Deltoid ligament, - anterior joint, - achilles tendon, - peroneal tendons, - posterior tibialis, - medial midfoot, - lateral midfoot, +base of 5th metatarsal tenderness, - phalange tenderness, -calcaneal tenderness, -plantar fascia tenderness ROM: dorsiflexion 5 degrees, plantarflexion 45 degrees, normal eversion, normal inversion, -crepitus throughout ROM Strength: 4/5 Testing: - anterior drawer, - talar tilt, - squeeze test of tibial and fibula, - Pittsburgh test, -too many toes sign, - Metatarsal squeeze test, - Calcaneal squeeze, - crepitus along plantar fascia Neurovascular: NVI, -Homans Skin: normal appearance with no discoloration or wounds IMAGING/OUTSIDE REPORTS Ordered and reviewed images performed at [facility] today: X-ray hand bilateral PA lateral and oblique, XR FOOT BILATERAL 3 VIEW Weight Bearing Narrative: LEFT HAND HISTORY: Acute left hand pain. COMPARISON: None. FINDINGS: A three view exam demonstrates no acute fracture or dislocation. There is mild to moderate narrowing of the proximal and distal interphalangeal joints consistent with mild osteoarthritis. No soft tissue abnormality is seen. There is normal mineralization. There are no erosions. Impression: No acute process. Mild osteoarthritis. RIGHT HAND HISTORY: Acute right hand pain. COMPARISON: None. FINDINGS: A three view exam demonstrates no acute fracture or dislocation. There is mild to moderate narrowing of the proximal and distal interphalangeal joints consistent with mild osteoarthritis. No soft tissue abnormality is seen. There is normal mineralization. There are no erosions. IMPRESSION: No acute process. Mild osteoarthritis. LEFT FOOT HISTORY: Acute left foot pain. COMPARISON: None. FINDINGS: A three view exam demonstrates no acute fracture or dislocation. There is a moderate plantar calcaneal spur. The joint spaces appear unremarkable. No soft tissue abnormality is seen. There is normal mineralization. There are no erosions. IMPRESSION: No acute process. RIGHT FOOT HISTORY: Acute right foot pain. COMPARISON: None. FINDINGS: A three view exam demonstrates no acute fracture or dislocation. The joint spaces appear unremarkable. No soft tissue abnormality is seen. There is normal mineralization. There are no erosions. IMPRESSION: No acute process. Images reviewed, interpreted, and dictated by Dr. Antoni Yarbrough. Transcribed by Marquis Stout PA-C ASSESSMENT Problem List Items Addressed This Visit Musculoskeletal and Integument Primary osteoarthritis of both hands Calcaneal spur of left foot Other Bilateral foot pain Relevant Orders XR FOOT BILATERAL 3 VIEW Weight Bearing Other Visit Diagnoses Bilateral hand pain - Primary Relevant Orders X-ray hand bilateral PA lateral and oblique De Quervain's tenosynovitis, left Relevant Orders DME: Wrist Splint Multiple joint pain Relevant Orders ANTINUCLEAR ANTIBODIES DIRECT Rheumatoid factor Ab, reflex to titer Sedimentation rate C-Reactive Protein Vitamin B12 Numbness and tingling of both upper extremities Relevant Orders EMG W/ NCS DME: Wrist Splint DISCUSSION Localized primary osteoarthritis of hand Discussed anatomy, pathology and treatment options of wrist and hand osteoarthritis with the patient. I explained that osteoarthritis (OA) is commonly known as wear and tear in a joint. I explained that the most commonly affected joints of the wrist and hand are the 1st CMC, PIP and DIP joints. Often times, OA is caused by a previous injury to the wrist or hand. I explained that there is no cure for osteoarthritis, but there are a variety of options available for the patient. Non-operative interventions include NSAIDs, rest, ice, activity modification, PT, cortisone injections and temporary immobilization. Operative interventions include arthroplasty and arthrodesis. Surgery is typically reserved for patients who have failed adequate conservativetherapies. Education and instructions: Educated patient on pathophysiology, anatomy and progression of De Quervain Tenosynovitis. Explained that repetitive tasks with thumb and wrist are often the cause of the inflammation in the involved tendons. Educated patient that this inflammatory process often respondswell to conservative therapy, including thumb spica splint/brace, hand therapy, cortisone injections, NSAIDs, rest and ice. Surgical indication is often reserved for tenosynovitis that does not respond to 10-12 months of conservative therapy and the appropriate surgery is a first dorsal compartmentrelease. PLAN Bilateral hand: Return for EMG results and review lab results. Reviewed x-ray findings with patient in office Recommend patient reach out to PCP regarding NSAID use; patient reports reaction to ibuprofen in the past, but states she is currently taking Aleve HEP as discussed and demonstrated in office today for De Quervain's Brace: modabber thumb w/stay brace dispensed for left hand and velcro wrist brace dispensed for right Can consider left De Quervain injection if symptoms fail to improve with HEP and bracing Rest Ice Return to Clinic if new or worse symptoms occur BUE EMG to be scheduled. In Basket request sent to Nazia at time of visit to initiate referral Recommend edema gloves for swelling Rheumatoid panel ordered; BEN, CRP, ESR, RF and Vitamin B12. Family history of rheumatoid arthritisand patient has multiple joint pain with increased swelling in hands Consider rheumatology referral pending lab results Bilateral foot: Can consider IR to Dr. Thorpe if symptoms persist or worsen Recommend good supportive shoes; handout dispensed for Power step inserts Rest Ice Elevate Return to Clinic if new or worse symptoms occur WBAT Scribe Attestation: IDenice CMA acted as a [...] and concur. Electronically Signed, Nick Rasmussen PA-C 11/19/2024 10:58 AM EDT Leyda Young: Cheryl Sal [facility] is undergoing an EHR transition as of [...] Description 02/11/2025 10:00 AM EDT Office Visit [facility] - [address] [place] [address] Nick Rasmussen PA-C [address] [place] [address] 08/19/2025 9:30 AM EST Appointment [facility] [address] [place] [address] Scheduled Orders Name Type Priority Associated Diagnoses Orde r Schedule ANTINUCLEAR ANTIBODIES DIRECT Lab Routine Multiple joint pain Ordered: 11/19/2024 Rheumatoid factor Ab, reflex to titer Lab Routine Multiple joint pain Ordered: 11/19/2024 Sedimentation rate Lab Routine Multiple joint pain Ordered: 11/19/2024 C-Reactive Protein Lab Routine Multiple joint pain Ordered: 11/19/2024 Vitamin B12 Lab Routine Multiple joint pain Ordered: 11/19/2024 EMG W/ NCS Neurology Routine Numbness and tingling of both upper extremities Expected: 11/19/2024, Expires: 11/19/2025 documented as of this encounter Results * X-ray hand bilateral PA lateral and oblique (11/19/2024 10:11 AM EDT) Anatomical Region Laterality Modality Hand, Wrist X-Ray 11/19/2024 12:2 5 PM EDT Impressions 11/19/2024 1:11 PM EDT No acute process. Mild osteoarthritis. RIGHT HAND HISTORY: Acute right hand pain. COMPARISON: None. FINDINGS: A three view exam demonstrates no acute fracture or dislocation. There is mild to moderate narrowing of the proximal and distal interphalangeal joints consistent with mild osteoarthritis. No soft tissue abnormality is seen. There is normal mineralization. There are no erosions. IMPRESSION: No acute process. Mild osteoarthritis. LEFT FOOT HISTORY: Acute left foot pain. COMPARISON: None. FINDINGS: A three view exam demonstrates no acute fracture or dislocation. There is a moderate plantar calcaneal spur. The joint spaces appear unremarkable. No soft tissue abnormality is seen. There is normal mineralization. There are no erosions. IMPRESSION: No acute process. RIGHT FOOT HISTORY: Acute right foot pain. COMPARISON: None. FINDINGS: A three view exam demonstrates no acute fracture or dislocation. The joint spaces appear unremarkable. No soft tissue abnormality is seen. There is normal mineralization. There are no erosions. IMPRESSION: No acute process. Images reviewed, interpreted, and dictated by Dr. Antoni Yarbrough. Transcribed by Marquis Stout PA-C Narrative 11/19/2024 1:11 PM EDT LEFT HAND HISTORY: Acute left hand pain. COMPARISON: None. FINDINGS: A three view exam demonstrates no acute fracture or dislocation. There is mild to moderate narrowing of the proximal and distal interphalangeal joints consistent with mild osteoarthritis. No soft tissue abnormality is seen. There is normal mineralization. There are no erosions. Procedure Note Antoni Yarbrough MD - 11/19/2024 LEFT HAND HISTORY: Acute left hand pain. COMPARISON: None. FINDINGS: A three view exam demonstrates no acute fracture or dislocation. There is mild to moderate narrowing of the proximal and distal interphalangeal joints consistent with mild osteoarthritis. No soft tissue abnormality is seen. There is normal mineralization. There are no erosions. IMPRESSION: No acute process. Mild osteoarthritis. RIGHT HAND HISTORY: Acute right hand pain. COMPARISON: None. FINDINGS: A three view exam demonstrates no acute fracture or dislocation. There is mild to moderate narrowing of the proximal and distal interphalangeal joints consistent with mild osteoarthritis. No soft tissue abnormality is seen. There is normal mineralization. There are no erosions. IMPRESSION: No acute process. Mild osteoarthritis. LEFT FOOT HISTORY: Acute left foot pain. COMPARISON: None. FINDINGS: A three view exam demonstrates no acute fracture or dislocation. There is a moderate plantar calcaneal spur. The joint spaces appear unremarkable. No soft tissue abnormality is seen. There is normal mineralization. There are no erosions. IMPRESSION: No acute process. RIGHT FOOT HISTORY: Acute right foot pain. COMPARISON: None. FINDINGS: A three view exam demonstrates no acute fracture or dislocation. The joint spaces appear unremarkable. No soft tissue abnormality is seen. There is normal mineralization. There are no erosions. IMPRESSION: No acute process. Images reviewed, interpreted, and dictated by Dr. Antoni Yarbrough. Transcribed by Marquis Stout PA-C Nick Rasmussen PA-C IM DIAGNOSTIC IMAGING ORDER DEEPAK Final Result * XR FOOT BILATERAL 3 VIEW Weight Bearing (11/19/2024 10:10 AM EDT) Anatomical Region Laterality Modality Foot X-Ray 11/19/2024 12:2 5 PM EDT Impressions 11/19/2024 1:11 PM EDT No acute process. Mild osteoarthritis. RIGHT HAND HISTORY: Acute right hand pain. COMPARISON: None. FINDINGS: A three view exam demonstrates no acute fracture or dislocation. There is mild to moderate narrowing of the proximal and distal interphalangeal joints consistent with mild osteoarthritis. No soft tissue abnormality is seen. There is normal mineralization. There are no erosions. IMPRESSION: No acute process. Mild osteoarthritis. LEFT FOOT HISTORY: Acute left foot pain. COMPARISON: None. FINDINGS: A three view exam demonstrates no acute fracture or dislocation. There is a moderate plantar calcaneal spur. The joint spaces appear unremarkable. No soft tissue abnormality is seen. There is normal mineralization. There are no erosions. IMPRESSION: No acute process. RIGHT FOOT HISTORY: Acute right foot pain. COMPARISON: None. FINDINGS: A three view exam demonstrates no acute fracture or dislocation. The joint spaces appear unremarkable. No soft tissue abnormality is seen. There is normal mineralization. There are no erosions. IMPRESSION: No acute process. Images reviewed, interpreted, and dictated by Dr. Antoni Yarbrough. Transcribed by Marquis Stout PA-C Narrative 11/19/2024 1:11 PM EDT LEFT HAND HISTORY: Acute left hand pain. COMPARISON: None. FINDINGS: A three view exam demonstrates no acute fracture or dislocation. There is mild to moderate narrowing of the proximal and distal interphalangeal joints consistent with mild osteoarthritis. No soft tissue abnormality is seen. There is normal mineralization. There are no erosions. Procedure Note Antoni Yarbrough MD - 11/19/2024 LEFT HAND HISTORY: Acute left hand pain. COMPARISON: None. FINDINGS: A three view exam demonstrates no acute fracture or dislocation. There is mild to moderate narrowing of the proximal and distal interphalangeal joints consistent with mild osteoarthritis. No soft tissue abnormality is seen. There is normal mineralization. There are no erosions. IMPRESSION: No acute process. Mild osteoarthritis. RIGHT HAND HISTORY: Acute right hand pain. COMPARISON: None. FINDINGS: A three view exam demonstrates no acute fracture or dislocation. There is mild to moderate narrowing of the proximal and distal interphalangeal joints consistent with mild osteoarthritis. No soft tissue abnormality is seen. There is normal mineralization. There are no erosions. IMPRESSION: No acute process. Mild osteoarthritis. LEFT FOOT HISTORY: Acute left foot pain. COMPARISON: None. FINDINGS: A three view exam demonstrates no acute fracture or dislocation. There is a moderate plantar calcaneal spur. The joint spaces appear unremarkable. No soft tissue abnormality is seen. There is normal mineralization. There are no erosions. IMPRESSION: No acute process. RIGHT FOOT HISTORY: Acute right foot pain. COMPARISON: None. FINDINGS: A three view exam demonstrates no acute fracture or dislocation. The joint spaces appear unremarkable. No soft tissue abnormality is seen. There is normal mineralization. There are no erosions. IMPRESSION: No acute process. Images reviewed, interpreted, and dictated by Dr. Antoni Yarbrough. Transcribed by Marquis Stout PA-C Nick Rasmussen PA-C IMG DIAGNOSTIC IMAGING ORDER DEEPAK Final Result documented in this encounter Visit Diagnoses Diagnosis Numbness and tingling of both upper extremities- Primary Bilateral hand pain Bilateral foot pain Calcaneal spur of left foot Primary osteoarthritis of both hands De Quervain's tenosynovitis, left Multiple joint pain Pain in joint, multiple sites Bilateral hand pain Bilateral foot pain documented in this encounter Care Teams Accounting Specialist Relationship Specialty Start Date End Date Lena Aguilera, CALENDER WIND UP TENDER [address] [place] [id number] PCP - General Family Medicine 10/28/23 Nick Rasmussen PA-C [address] [place] [address] Orthopedic Surgery 08/07/23 Nimisha Nuñez PA-C [address] [place] [address] Physician [facility] 02/05/24 documented as of this encounter
--- OUTSIDE RECORDS SUMMARY | 2024-11-19 09:40 | XMS_ITS | Encounter Summary ---
Author Organization [employer] ([place], [place], [place]) Address [address] [place] [address] Care Team Providers Care General Superintendent Name Role Phone Nick Rasmussen PA-C Unavailable Lena Aguilera APRN Primary Care Provider [phone] Nimisha Nuñez PA-C Unavailable [phone] Reason for Referral * Diagnostic X-Ray (Routine) - Closed Specialty Diagnoses / Procedures Referred By Contac t Referred To Contact Radiology Diagnoses Bilateral foot pain Procedures XR FOOT BILATERAL 3 VIEW Weight Bearing Nick Rasmussen PA-C [address] [place] [address] Phone: tel: fax: [facility] Diagnostic Imaging - [facility] [address] [facility] [address] [place] [address] Phone: tel: fax: Referral ID Status Reason Start Date Expiration Date Visits Re quested Visits Authorized [id number] Closed 11/19/2024 11/19/2025 1 1 Reason for Visit * Diagnostic X-Ray (Routine) - Closed Specialty Diagnoses / Procedures Referred By Contac t Referred To Contact Radiology Diagnoses Bilateral foot pain Procedures XR FOOT BILATERAL 3 VIEW Weight Bearing Nick Rasmussen PA-C [address] [place] [address] Phone: tel: fax: [facility] Diagnostic Imaging - [address] [place] [address] Phone: tel: fax: Referral ID Status Reason Start Date Expiration Date Visits Re quested Visits Authorized [id number] Closed 11/19/2024 11/19/2025 1 1 Encounter Details Date Type Department Care Team (Late st Contact Info) Description 11/19/2024 9:40 AM EDT - 11/19/2024 11:59 PM EDT Hospital Encounter [facility] Diagnostic Imaging - [address] [facility] [address] [place] [address] Nick Rasmussen PA-C [address] [place] [address] Bilateral foot pain Discharge Disposition: Home or Self Care [...] Date Vijay rded Speak language other than Greenlandic at home Not on file 07/19/2023 Want [...] Description 02/11/2025 10:00 AM EDT Office Visit [facility] Orthopedics - [address] [place] [address] Nick Rasmussen PA-C [address] [place], [place] [id number] 08/19/2025 9:30 AM EST Appointment [address] [place] [address] documented as of this encounter Procedures Procedure Name Priority Date/Time Associated Diagnosis Comments XR FOOT BILATERAL 3 VIEW Routine 11/19/2024 10:10 AM EDT Bilateral foot pain documented in this encounter Results * XR FOOT BILATERAL 3 VIEW Weight [...] in this encounter Visit Diagnoses Diagnosis Bilateral foot pain documented in this encounter Care Teams General Superintendent Relationship Specialty Start Date End Date WillyLena, AUTO SALVAGE WORKER [address] [place] [address] PCP - General Family Medicine 10/28/23 Nick Rasmussen PA-C [address] [place] [address] Orthopedic Surgery 08/07/23 Nimisha Nuñez PA-C [address] [place] [address] Physician Cutlery Grinder Orthopedic Surgery 02/05/24 documented as of this encounter
--- OUTSIDE RECORDS SUMMARY | 2024-11-19 09:40 | XMS_ITS | Encounter Summary ---
Author Organization [employer] ([place], [place], [place], [place]) Address [address] [place] [address] Care Team Providers Care Pocket Grinder Operator Name Role Phone Nick Rasmussen PA-C Unavailable [phone] Lena Aguilera APRN Primary Care Provider [phone] Nimisha Nuñez PA-C Unavailable [phone] Reason for Referral * Diagnostic X-Ray (Routine) - Closed Specialty Diagnoses / Procedures Referred By Contac t Referred To Contact Radiology Diagnoses Bilateral hand pain Procedures X-ray hand bilateral PA lateral and oblique Nick Rasmussen PA-C [address] [place] [address] Phone: tel: fax: [facility] - [place] [facility] [address] [facility] [address] [place] [address] Phone: tel: fax: Referral ID Status Reason Start Date Expiration Date Visits Re quested Visits Authorized [id number] Closed 11/19/2024 11/19/2025 1 1 Reason for Visit * Diagnostic X-Ray (Routine) - Closed Specialty Diagnoses / Procedures Referred By Contac t Referred To Contact Radiology Diagnoses Bilateral hand pain Procedures X-ray hand bilateral PA lateral and oblique Nick Rasmussen PA-C [address] [place] [address] Phone: tel: fax: [facility] - [address] [place] [address] Phone: tel: fax: Referral ID Status Reason Start Date Expiration Date Visits Re quested Visits Authorized [id number] Closed 11/19/2024 11/19/2025 1 1 Encounter Details Date Type Department Care Team (Late st Contact Info) Description 11/19/2024 9:40 AM EDT - 11/19/2024 11:59 PM EDT Hospital Encounter [facility] Diagnostic Imaging - [address] [facility] [address] [place] [address] Nick Rasmussen PA-C [address] [place] [address] Bilateral hand pain Discharge Disposition: Home or [...] Date Vijay rded Speak language other than Maltese at home Not on file 07/19/2023 Want [...] Description 02/11/2025 10:00 AM EDT Office Visit [facility] Orthopedics - [address] [place] [address] Nick Rasmussen PA-C [address] [place], [place] [id number] 08/19/2025 9:30 AM EST Appointment [address] [place] [address] documented as of this encounter [...] pain documented in this encounter Care Teams Pocket Grinder Operator Relationship Specialty Start Date End Date Lena Aguilera, PUNCH CARD OPERATOR [address] [place] [address] PCP - General Family Medicine 10/28/23 Nick Rasmussen PA-C [address] [place] [address] Orthopedic Surgery 08/07/23 Nimisha Nuñez PA-C [address] [place] [address] Physician Automobile Assembler Orthopedic Surgery 02/05/24 documented as of this encounter
--- OUTSIDE RECORDS SUMMARY | 2024-12-05 10:57 | XMS_ITS | Encounter Summary ---
Author Organization [employer] ([place], [place], [place], [place]) Address [address] [place] [address] Care Team Providers Care Filter Plant Supervisor Name Role Phone Nick Rasmussen PA-C Unavailable [phone] Lena Aguilera APRN Primary Care Provider Nimisha Nuñez PA-C Unavailable [phone] Reason for Visit * Reason Comments Dizziness Pt presents to ED fo r dizziness, chest pain, earache, and headache. Onset 30 mins ago. Encounter Details Date Type Department Care Team (Late st Contact Info) Description 12/05/2024 10:57 AM EDT - 12/05/2024 2:53 PM EDT Emergency [facility] Emergency Department [address] [place] [phone] Mayank Patrick MD [address] [place], [place] [id number] Acute cystitis with hematuria (Primary Dx); Chest [...] Date Vijay rded Speak language other than Latvian at home Not on file 07/19/2023 Want [...] Care Everywhere. * Urinary Tract Infection Adult Frje-kn-Elxt (Latvian) documented in this encounter Medications at Time [...] WITH POLYPECTOMY; Surgeon: Stephani Romero MD; Location: [facility]; Service: Gastroenterology; Laterality: N/A; HYSTERECTOMY KNEE SURGERY SC COLON CA SCRN NOT HI RSK IND [...] Yellow Clarity, UA Turbid (A) Clear Specific [place], UA 1.024 1.005 - 1.030 pH, UA [...] d iagnosis include but not limited to ID, dehydration, electrolyte imbalance, anxiety. During patient's visit [...] Medicine Relationship: [place] [address] Next Steps: Schedule an appointment as soon as possible for a visit Instructions: As needed, If symptoms worsen Associated attestation - Mayank Patrick MD - 12/06/2024 6:16 AM CDT Mayank Patrick MD: I saw the patient ferm-ab-bijx. I performed a substantive portion of the MDM. Chest x-ray was personally reviewed and independently interpreted by me with findings: No obvious pneumonia, no pneumothorax. documented in this encounter Plan of Treatment Upcoming Encounters Date Type Department Care Team (Late st Contact Info) Description 02/11/2025 10:00 AM EDT Office Visit [facility] Orthopedics - [address] [place] [address] Nick Rasmussen PA-C [address] [place] [phone] 08/19/2025 9:30 AM EST Appointment [facility] [address] [facility] [address] [place] [phone] documented as of this encounter Procedures [...] - 58.8 pg/mL 12/05/2024 1:45 PM EDT [facility] Comment: Troponin Result (pg/mL) *Interpretation [...] ORDERABLES Final Res ult Performing Organization Address [facility] Co de Phone Number [facility] [address] [place] [address], [facility] [phone] * Urine Culture (12/05/2024 12:45 PM EDT) Result Recollect Specimen - 3 or more organisms suggests contamination 12/07/2024 8:55 AM EDT [facility] Urine URINE SPECIMEN COLLECTION, CLEAN CATCH / Unknown 12/05/2024 12:45 PM EDT 12/05/2024 2:19 PM EDT Yamel Hurt NP MICROBIOLOGY - GENERAL ORDERAB LES Final Result Performing Organization Address [facility] de Phone Number [facility] [address] [place] [address], [facility] [phone] * (ABNORMAL) Urinalysis Microscopic Only (12/05/2024 12:45 PM EDT) WBC, UA 51-100(A) None Seen /HPF 12/05/2024 2:20 PM EDT [facility] RBC, UA 6-10(A) None Seen /HPF 12/05/2024 2:20 PM EDT [facility] Bacteria, UA 2+(A) Trace, None Seen 12/05/2024 2:20 PM EDT [facility] Mucus 1+(A) None Seen 12/05/2024 2:20 PM EDT [facility] SQUAMOUS EPITHELIAL 3-5(A) None Seen /HPF 12/05/2024 2:20 PM EDT [facility] TRANSITIONAL EPITHELIAL CELLS 0-2(A) None Seen /HPF 12/05/2024 2:20 PM EDT [facility] Non Squamous Epithelial Cells Present Absent 12/05/2024 2:20 PM EDT [facility] Urine URINE SPECIMEN COLLECTION, CLEAN CATCH / Unknown 12/05/2024 12:45 PM EDT 12/05/2024 2:07 PM EDT Yamel Hurt AXLE AND FRAME MECHANIC URINE ORDERABLES Final Result [facility] [address] [place] [phone] * (ABNORMAL) Urinalysis, Reflex Microscopic and Culture If Indicated (12/05/2024 12:45 PM EDT) Color, UA Yellow 12/05/2024 2:20 PM EDT [facility] Clarity, UA Turbid(A) Clear 12/05/2024 2:20 PM EDT [facility] Specific [place], UA 1.024 1.005 - 1.030 12/05/2024 2:20 PM EDT [facility] pH, UA 7.0 6.0 - 8.0 12/05/2024 2:20 PM EDT [facility] Leukocytes, UA 500 Evangelist/uL(A) Negative 12/05/2024 2:20 PM EDT [facility] Nitrite, UA Negative Negative 12/05/2024 2:20 PM EDT [facility] Protein, UA Trace(A) Negative 12/05/2024 2:20 PM EDT [facility] Glucose, UA Normal Normal 12/05/2024 2:20 PM EDT [facility] Ketones, UA Negative Negative 12/05/2024 2:20 PM EDT [facility] Bilirubin, UA Negative Negative 12/05/2024 2:20 PM EDT [facility] Blood, UA Negative Negative 12/05/2024 2:20 PM EDT [facility] Urobilinogen, UA Normal Normal 12/05/2024 2:20 PM EDT [facility] Specimen Source Urine, Clean Catch 12/05/2024 2:20 PM EDT [facility] Urine URINE SPECIMEN COLLECTION, CLEAN CATCH / Unknown 12/05/2024 12:45 PM EDT 12/05/2024 2:07 PM EDT Yamel Hurt NP URINE ORDERABLES Final Result [facility] [address] [phone] * XR chest 1 view portable / [...] - 12.0 seconds 12/05/2024 11:48 AM EDT [facility] INR 0.95 0.80 - 1.10 12/05/2024 11:48 AM EDT [facility] Comment: Recommended therapeutic ranges using International Normalized Ratio (INR) are: INR RANGE 2.0 - 3.0 Routine oral anticoagulant therapy 2.5 - 3.5 Oral anticoagulant therapy for patients with thromboembolic events on standard doses of Coumadin and those with mechanical heart valves. Blood Venipuncture / Unknown 12/05/2024 11:30 AM EDT 12/05/2024 11:30 AM EDT Yamel Hurt AX[employer]AME MECHANIC LAB BLOOD ORDERABLES Final Res ult Performing Organization Address [facility] Co de Phone Number [facility] [address] [phone] * aPTT (12/05/2024 11:30 AM EDT) aPTT 25.9 22.0 - 32.0 seconds 12/05/2024 11:48 AM EDT [facility] Blood Venipuncture / Unknown 12/05/2024 11:30 AM EDT 12/05/2024 11:30 AM EDT Yamel Hurt LAB BLOOD ORDERABLES Final Res ult Performing Organization Address [facility] Co de Phone Number [facility] [address] [phone] * High Sensitivity Troponin I (12/05/2024 11:30 AM EDT) Troponin I High Sensitivity (pg/mL) 5.4 3 - 58.8 pg/mL 12/05/2024 11:59 AM EDT [facility] Comment: Troponin Result (pg/mL) *Interpretation [...] NP LAB BLOOD ORDERABLES Final Res ult [facility] [address] [place] [id number] [phone] * (ABNORMAL) Comprehensive metabolic panel (12/05/2024 11:30 AM EDT) Sodium 138 136 - 146 meq/L 12/05/2024 11:55 AM EDT [facility] Potassium 3.9 3.5 - 5.1 meq/L 12/05/2024 11:55 AM EDT [facility] Chloride 106 102 - 112 meq/L 12/05/2024 11:55 AM EDT [facility] CO2 26 21 - 32 meq/L 12/05/2024 11:55 AM EDT [facility] Calcium 9.6 8.5 - 10.1 mg/dL 12/05/2024 11:55 AM T [facility] Glucose 109(H) 74 - 106 mg/dL 12/05/2024 11:55 AM EDT [facility] BUN 24(H) 7 - 22 mg/dL 12/05/2024 11:55 AM EDT [facility] Creatinine 1.18(H) 0.55 - 1.02 mg/dL 12/05/2024 11:55 AM EDT [facility] BUN/Creatinine 20 8 - 20 12/05/2024 11:55 AM EDT [facility] Albumin 3.9 3.4 - 5.0 g/dL 12/05/2024 11:55 AM EDT [facility] Alkaline Phosphatase 97 27 - 136 U/L 12/05/2024 11:55 AM EDT [facility] ALT 32 12 - 78 U/L 12/05/2024 11:55 AM EDT [facility] AST 24 5 - 37 U/L 12/05/2024 11:55 AM EDT [facility] Total Bilirubin 0.5 0.2 - 1.3 mg/dL 12/05/2024 11:55 AM EDT [facility] Protein, Total 7.6 6.4 - 8.2 gm/dL 12/05/2024 11:55 AM EDT [facility] Anion Gap 10 9 - 20 12/05/2024 11:55 AM EDT [facility] A/G Ratio 1.1 1.1 - 2.5 12/05/2024 11:55 AM EDT [facility] Globulin 3.7 1.5 - 4.5 g/dL 12/05/2024 11:55 AM EDT [facility] Osmolality Calc 280.3 mOsm/kg 11:55 AM EDT [facility] eGFR (mL/min/1.73m2) 53(L) >=60 mL/min/1.7 3m2 12/05/2024 11:55 AM EDT [facility] Comment:ESTIMATED GFR IS NOT ACCURATE CREATININE CLEARANCE IN PREDICTING GLOMERULAR FILTRATION RATE. ESTIMATED GFR IS NOT APPLICABLE FOR DIALYSIS PATIENTS. Blood Venipuncture / Unknown 12/05/2024 11:30 AM EDT 12/05/2024 11:30 AM EDT us Yamel Hurt AXLE AND FRAME MECHANIC LAB BLOOD ORDERABLES Final Res ult [facility] [address] [phone] * (ABNORMAL) CBC with automated diff (12/05/2024 11:30 AM EDT) WBC 5.8 3.9 - 10.0 K/ L 12/05/2024 11:34 AM EDT [facility] RBC 4.85 3.93 - 6.08 M/ L 12/05/2024 11:34 AM EDT [facility] Hemoglobin 13.8 11.2 - 15.7 GM/DL 12/05/2024 11:34 AM EDT [facility] Hematocrit 41.5 34.1 - 44.9 % 12/05/2024 11:34 AM EDT [facility] MCV 86 79 - 95 fL 12/05/2024 11:34 AM EDT [facility] MCH 28.5 25.6 - 32.2 pg 12/05/2024 11:34 AM EDT [facility] MCHC 33.3 32.2 - 36.5 GM/DL 12/05/2024 11:34 AM EDT [facility] RDW 13.3 11.6 - 14.4 % 12/05/2024 11:34 AM EDT [facility] Platelets 195 163 - 369 K/CU MM 12/05/2024 11:34 AM EDT [facility] MPV 9.6 9.4 - 12.4 fL 12/05/2024 11:34 AM EDT [facility] % Neutros 70 34 - 71 % 12/05/2024 11:34 AM EDT [facility] % Lymphs 16(L) 19 - 53 % 12/05/2024 11:34 AM EDT [facility] % Monos 9 4 - 13 % 12/05/2024 11:34 AM EDT [facility] % Eos 5 1 - 7 % 12/05/2024 11:34 AM EDT [facility] % Baso 1 0 - 1 % 12/05/2024 11:34 AM EDT [facility] # Neutros 4.02 1.56 - 6.13 K/ L 12/05/2024 11:34 AM EDT [facility] # Lymphs 0.90(L) 1.18 - 3.74 K/ L 12/05/2024 11:34 AM EDT [facility] # Monos 0.52 0.24 - 0.82 K/ L 12/05/2024 11:34 AM EDT [facility] # Eos 0.27 0.04 - 0.54 K/ L 12/05/2024 11:34 AM EDT [facility] # Baso 0.05 0.01 - 0.08 K/ L 12/05/2024 11:34 AM EDT [facility] Immature Granulocytes-Re lative 0.30 0.00 - 0.60 % 12/05/2024 11:34 AM EDT [facility] # IG 0.02 0.00 - 0.05 K/uL 12/05/2024 11:34 AM EDT [facility] Blood Venipuncture / Unknown 12/05/2024 11:30 AM EDT 12/05/2024 11:30 AM EDT Narrative [facility] - 12/05/2024 11:34 AM EDT [...] ORDERABLES Final Res ult Performing Organization Address [facility] Co de Phone Number [facility] [address] [phone] * ECG 12 lead (12/05/2024 11:03 AM EDT) SYSTOLIC BLOOD PRESSURE (MCT) 127 mmHg GE MUSE DIASTOLIC BLOOD PRESSURE (MCT) 77 mmHg GE MUSE VENTRICULAR RATE EKG/MIN 73 BPM GE MUSE ATRIAL RATE (MCT) 73 BPM GE MUSE SC Interval 142 ms GE MUSE QRS-INTERVAL (MSEC) 66 ms GE MUSE QT Interval 394 ms GE MUSE QTC Interval 434 ms GE MUSE P [place] 38 degrees GE MUSE R AXIS (MCT) 67 degrees GE MUSE T Wave [place] 55 degrees GE MUSE [place] Diagnosis Normal sinus rhythm Low voltage QRS Borderline ECG No previous ECGs available Confirmed by Bhumika URBANO SUZANNE ([id number]) on 12/09/2024 10:52:48 AM GE MUSE 12/05/2024 11:0 3 AM EDT 12/09/2024 10:52 AM EDT Yamel Hurt NP ECG ORDERABLES Final Result Performing Organization Address [facility] Co de Phone Number GE MUSE documented [...] RN) documented in this encounter Care Teams Filter Plant Supervisor Relationship Specialty Start Date End Date Lena Aguilera, CORPORATE RESPONSIBILITY OFFICER [address] [place] [address] PCP - General Family Medicine 10/28/23 Nick Rasmussen PA-C [address] [place] [address] Orthopedic Surgery 08/07/23 Nimisha Nuñez PA-C [address] [place] [address] Physician [employer] Program Associate Orthopedic Surgery 02/05/24 documented as of this encounter
--- OUTSIDE RECORDS SUMMARY | 2024-12-11 14:04 | XMS_ITS | Encounter Summary ---
[facility] Address [address] [place] [address] Care Team Providers Care Vocational Instructor Name Role Phone Provider, No Known Primary Care Provider Unavail able Reason for Referral * Consultation (Routine) - Closed Specialty Diagnoses / Procedures Referred By Kai t Referred To Contact Cardiology Diagnoses Atypical chest pain Procedures CT OFFICE/OUTPATIENT NEW MODERATE MDM 45 MINUTES Esteban Pantoja PA-C [address] [place] [address] [address] [place] [address] Phone: tel: fax: Govind Christy MD [address] [place] [address] [address] [place] [address] Phone: tel: fax: Referral ID Status Reason Start Date Expiration Date V isits Requested Visits Authorized [id number] Closed Specialty Services Required 12/11/2024 03/12/2026 1 1 Reason for Visit * Reason Comments Chest Pain Encounter Details Date Type Department Care Team (Late st Contact Info) Description 12/11/2024 2:04 PM EDT - 12/11/2024 5:42 PM EDT Emergency [facility] EMERGENCY DEPARTMENT [address] [place] [phone] Abhilash Gonzalez DO [address] [place] [address] [address] [place] [address] Atypical chest pain (Primary Dx) Discharge Disposition: Home or Self Care Social History Tobacco Use Types Packs/Day Years Used Date Smoking Tobacco: Never Assessed Abuse Screen Answer Date Recorded Feels Unsafe at Home or Work/School no 12/11/2024 Feels Threatened by Someone no 11/29 Does Anyone Try to Keep You From Having Contact with Others or Doing Things Outside Your Home? no 12/11/2024 Physical Signs of Abuse Present no 12/11/2024 Housing Stability Answer Date Recorded Current Living Arrangements Not on file 03/2023 Potentially Unsafe Housing Conditions Not on maral e 04/08/2023 Family and Community Support Answer Noam e Recorded Help with Day-to-Day Activities Not on file 04/08/2023 Lonely or Isolated Not on file 04/08/2023 Employment Answer Date Recorded Do you want help finding or keeping work or a compa b? Not on file 04/08/2023 Disabilities Answer Date Recorded Concentrating, Remembering, or Making Decisions Difficulty Not on file 04/08/2023 Doing Errands Independently Difficulty Not on fi le 04/08/2023 Education Answer Date Recorded Help with school or training? Not on file Preferred Language Not on file 04/08/2023 Comments Unknown Sex and Gender Information Value Date Recorded Sex Assigned at Not on file Legal Sex Female 11:24 AM EDT Gender Identity Not on file Sexual Orientation Not on file documented as of this encounter Last Filed Vital Signs Vital Sign Reading Time Taken Comments Blood Pressure 145/83 12/11/2024 4:31 PM EDT Pulse 61 12/11/2024 5:38 PM EDT Temperature 36.7 C (98 F) 12/11/2024 2:09 PM EDT Respiratory Rate 18 12/11/2024 2:09 PM EDT Oxygen Saturation 97% 12/11/2024 5:38 PM EDT Inhaled Oxygen Concentration - - Weight 86.7 kg (191 lb 1.6 oz) 12/11/2024 2:09 P M EDT Height 160 cm (5' 3 ) 12/11/2024 2:09 PM EDT Body Mass Index 33.85 12/11/2024 2:09 PM EDT documented in this encounter Functional Status * Calculated C-SSRS Risk Score (Lifetime/Recent) Answer Date of Assessment Author No Risk Indicated 12/11/2024 2:10 PM EDT Hu Dey RN * [place] Suicide Severity Rating Scale (Screener/Recent Self-Report) Question Answer Date of Assessment Author 1. Wish to be (Past 1 Month) No 025 2:10 PM EDT Destiney Dey RN 2. Non-Specific Active Suici alma Thoughts (Past 1 Month) No 12/11/2024 2:10 PM EDT Destiney Dey RN 6. Suicidal Behavior (Lifetime) No 5 2:10 PM EDT Destiney Dey RN documented as of this encounter Discharge Instructions * Attachments The following attachments cannot be sent through Care Everywhere. * Nonspecific Chest Pain Adult ([place] African) documented in this encounter Medications at Time of Discharge azithromycin (Zithromax Z-Seamus) 250 MG tablet Take 2 tablets by mouth on day 1, then 1 tablet daily on days 2-5 6 tablet 12/11/2024 diclofenac (VOLTAREN) 75 MG EC tablet Take 1 tablet by mouth 2 (Two) Times a Day. 12 tablet 12/11/2024 documented as of this encounter Miscellaneous Notes * [facility] Provider Note - Esteban Pantoja PA-C - 12/11/2024 5:11 PM EDT Images from the original note were not included. Subjective History of Present Illness: Patient is a 59-year-old female with a history of hypertension, dyslipidemia presenting to the emergency department for chest pain. He states pain started approximately 30 minutes prior to arrival. Pain is localized to the right chest, she reports associated reaction to her right arm. She states she felt sweaty and short of breath. She had a similar episode last week and was seen at [facility] ED with a normal workup. She has no prior cardiac history. She states the pain is worsened with breathing and movement. She states that it is improved with laying back. She also reports a recent productive cough, denies fever. Nurses Notes reviewed and agree, including vitals, allergies, social history and prior medical history. REVIEW OF SYSTEMS: All systems reviewed and not pertinent unless noted. Review of Systems Cardiovascular: Positive for chest pain. All other systems reviewed and are negative. No past medical history on file. Allergies: Patient has no known allergies. No past surgical history on file. Social History Socioeconomic History Marital status: No family history on file. Objective Physical Exam: BP 145/83 Pulse 61 Temp 98 ??F (36.7 ??C) (Oral) Resp 18 Ht 160 cm (63 ) Wt 86.7 kg (191 lb 1.6 oz) SpO2 97% BMI 33.85 kg/m?? Physical Exam Vitals and nursing note reviewed. Constitutional: Appearance: She is well-developed and normal weight. HENT: Head: Normocephalic and atraumatic. Eyes: Pupils: Pupils are equal, round, and reactive to light. Cardiovascular: Rate and Rhythm: Normal rate. Pulmonary: Effort: Pulmonary effort is normal. Abdominal: Palpations: Abdomen is soft. Musculoskeletal: General: Normal range of motion. Cervical back: Normal range of motion. Comments: Right chest is tender to palpation, totally reproduces patient's symptoms Skin: General: Skin is warm and dry. Neurological: General: No focal deficit present. Mental Status: She is alert and oriented to person, place, and time. Psychiatric: Mood and Affect: Mood normal. Behavior: Behavior normal. Procedures ED Course: Lab Results (last 24 hours) Procedure Component Value Units Date/Time High Sensitivity Troponin T [[id number]] (Normal) Collected: 12/11/241414 Specimen: Blood Updated: 12/11/24 1435 HS Troponin T 9 ng/L CBC & Differential [[id number]] (Abnormal) Collected: 12/11/241414 Specimen: Blood Updated: 12/11/24 1421 Narrative: The following orders were created for panel order CBC & Differential. Procedure Abnormality Status --------- ------ CBC Auto Differential[[id number]] Abnormal Final result Please view results for these tests on the individual orders. Comprehensive Metabolic Panel [[id number]] (Abnormal) Collected: 12/11/241414 Specimen: Blood Updated: 12/11/24 1439 Glucose 104 mg/dL BUN 25.6 mg/dL Creatinine 1.21 mg/dL Sodium 143 mmol/L Potassium 3.8 mmol/L Chloride 105 mmol/L CO2 19.9 mmol/L Calcium 10.6 mg/dL Total Protein 7.3 g/dL Albumin 4.4 g/dL ALT (SGPT) 27 U/L AST (SGOT) 24 U/L Alkaline Phosphatase 92 U/L Total Bilirubin 0.3 mg/dL Globulin 2.9 gm/dL A/G Ratio 1.5 g/dL BUN/Creatinine Ratio 21.2 Anion Gap 18.1 mmol/L eGFR 51.1 mL/min/1.73 Narrative: GFR Categories in Chronic Kidney Disease (CKD) GFR Category GFR (mL/min/1.73) Interpretation G1 90 or greater Normal or high (1) G2 60-89 Mild decrease (1) G3a 45-59 Mild to moderate decrease G3b 30-44 Moderate to severe decrease G4 15-29 Severe decrease G5 14 or less Kidney failure (1)In the absence of evidence of kidney disease, neither GFR category G1 or G2 fulfill the criteriafor CKD. eGFR calculation 2020 CKD-EPI creatinine equation, which does not include race as a factor Lipase [[id number]] (Normal) Collected: 12/11/241414 Specimen: Blood Updated: 12/11/241437 Lipase 33 U/L BNP [[id number]] (Normal) Collected: 12/11/241414 Specimen: Blood Updated: 12/11/241435 proBNP 136.0 pg/mL Narrative: This assay is used as an aid in the diagnosis of individuals suspected of having heart failure. It can be used as an aid in the diagnosis of acute decompensated heart failure (ADHF) in patients presenting with signs and symptoms of ADHF to the emergency department (ED). In addition, NT-proBNP of <300 pg/mL indicates ADHF is not likely. Age Range Result Interpretation NT-proBNP Concentration (pg/mL: <50 Positive >450 Veras 300-450 Negative <300 50-75 Positive >900 Veras 300-900 Negative <300 >75 Positive >1800 Veras 300-1800 Negative <300 CBC Auto Differential [[id number]] (Abnormal) Collected: 12/11/241414 Specimen: Blood Updated: 12/11/241420 WBC 6.22 10*3/mm3 RBC 4.80 10*6/mm3 Hemoglobin 13.4 g/dL Hematocrit 39.7 % MCV 82.7 fL MCH 27.9 pg MCHC 33.8 g/dL RDW 12.5 % RDW-SD 38.1 fl MPV 9.8 fL Platelets 206 10*3/mm3 Neutrophil % 66.8 % Lymphocyte % 24.8 % Monocyte % 4.7 % Eosinophil % 2.9 % Basophil % 0.6 % Immature Grans % 0.2 % Neutrophils, Absolute 4.16 10*3/mm3 Lymphocytes, Absolute 1.54 10*3/mm3 Monocytes, Absolute 0.29 10*3/mm3 Eosinophils, Absolute 0.18 10*3/mm3 Basophils, Absolute 0.04 10*3/mm3 Immature Grans, Absolute 0.01 10*3/mm3 High Sensitivity Troponin T 1Hr [[id number]] (Normal) Collected: 12/11/24 1523 Specimen: Blood Updated: 12/11/24 1548 HS Troponin T 7 ng/L Troponin T Numeric Delta -2 ng/L Narrative: High Sensitive Troponin T Reference Range: <14.0 ng/L- Negative Female for AMI <22.0 ng/L- Negative Male for AMI >=14 - Abnormal Female indicating possible myocardial injury. >=22 - Abnormal Male indicating possible myocardial injury. Clinicians would have to utilize clinical acumen, EKG, Troponin, and serial changes to determine ifit is an Acute Myocardial Infarction or myocardial injury due to an underlying chronic condition. CT Angiogram Chest Pulmonary Embolism Result Date: 12/11/2024 CT ANGIOGRAM CHEST PULMONARY EMBOLISM Date of Exam: 12/11/2024 2:45 PM EDT Indication: Pulmonary Embolism. Comparison: None available. Technique: Axial CT images were obtained of the chest after the uneventful intravenous administration of 85 cc Isovue-370 utilizing pulmonary embolism protocol. In ad dition, a 3-D volume rendered image was created for interpretation. Reconstructed coronal and sagittal images were also obtained. Automated exposure control and iterative construction methods were used. Findings: Pulmonary arteries:Adequate opacification of the pulmonary arteries. No evidence of acute pulmonary embolism. Aorta: Unremarkable. Lungs and Pleura: Minimal hazy groundglass opacities noted within the right upper lobe and a possible tree-in-bud pattern. No consolidative changes. No discrete pulmonary lesions. The central airways are patent. No pleural effusion or pneumothorax Mediasti num/Sherrill: No lymphadenopathy. No suspicious mass. Heart: Normal in size. No pericardial effusion. Normal RV/LV ratio. Soft Tissue: Unremarkable. Upper Abdomen: Unremarkable. Bones: No acute osseous abnormality. Impression: Impression: 1.No evidence of acute pulmonary embolism. 2.Minimal hazy groundglass opacities within the right upper lobe and a possible tree-in-bud pattern. Findings are nonspecific and may be infectious or inflammatory. No consolidative changes. Electronically Signed: Girma Brock, 12/11/2024 3:27 PM EDT Workstation ID: [id number] XR Chest 1 View Result Date: 12/11/2024 XR CHEST 1 VW Date of Exam: 12/11/2024 2:24 PM EDT Indication: Chest pain Comparison: None available. Findings: The heart size is normal. The pulmonary vascular markings are normal. The lungs and pleural spaces are clear of active disease. There are chronic age-related changes involving the bony thorax and thoracic aorta. Impression: Impression: No active disease. Electronically Signed: Seth Spivey MD 12/11/2024 3:17 PM EDT Workstation ID: [id number] MDM Amount and/or Complexity of Data Reviewed Clinical lab tests: reviewed Tests in the radiology section of CPT??: reviewed Tests in the medicine section of CPT??: reviewed DDX: includes but is not limited to: Acute NM, chest wall pain, pneumonia, pulmonary embolism Patient arrives POV with vitals interpreted by myself. Pertinent features from physical exam: Chest is tender to palpation, totally reproduces her symptoms. Is worsened with breathing. Diagnostic information from other sources: CT scan concerning for a very mild groundglass opacity in the right upper lobe. EKG is negative for ischemic changes. Troponins are within normal limits. Labs are otherwise nonactionable Interventions / Re-evaluation: Toradol was provided for pain relief Medications aspirin chewable tablet 324 mg (324 mg Oral Given 12/11/24 1414) iopamidol (ISOVUE-370) 76 % injection 100 mL (85 mL Intravenous Given 12/11/24 2775) Results/clinical rationale were discussed with patient I suspect an atypical chest pain as it is reproducible on exam. Her cardiac workup was negative in the ED. Given this is her second ED visit for similar pain and her risk factors with hypertension, dyslipidemia, she was given a referral to outpatient cardiology for follow-up. She has a productive cough and mild groundglass opacities noted on her CT scan, she was prescribed azithromycin. Advised anti-inflammatories for pain relief. She understands and agrees with plan of care. She is well-appearing with stable vitals at time of discharge ----- ED Disposition ED Disposition Discharge Condition Stable Comment -- Final diagnoses: Atypical chest pain Your Follow-Up Providers [facility]. Specialty: Cardiology [address] [place] [address] [facility] [id number] Additional information: . Located on the same side of the street as [place] [place]. Entrance Information: Patients are encouraged to park in front of [facility], using Entrance A, near the fountain. Contact information for after-discharge care Follow-up information has not been specified. Your medication list START taking these medications Instructions Last Dose Given Next Dose Due azithromycin 250 MG tablet Commonly known as: Zithromax Z-Seamus Take 2 tablets by mouth on day 1, then 1 tablet daily on days 2-5 diclofenac 75 MG EC tablet Commonly known as: VOLTAREN Take 1 tablet by mouth 2 (Two) Times a Day. Where to Get Your Medications These medications were sent to [facility] [id number] - [place], [place] - [address] [place] [address] [address] - [phone] - [phone] [place] [id number] azithromycin 250 MG tablet diclofenac 75 MG EC tablet Cosigned by Abhilash Gonzalez DO at 12/12/2024 8:04 AM EDT Associated attestation - Abhilash Gonzalez DO - 12/12/2024 8:04 AM EDT SHARED APC FACE TO FACE: I performed a substantive part of the MDM during the patient's E/M visit. I personally evaluated and examined the patient. I personally made or approved the documented management plan and acknowledge its risk of complications. Abhilash Gonzalez DO 12/12/2024 08:04 EDT documented in this encounter Plan of Treatment Scheduled Referrals Name Type Priority Associated Diagnoses Order Schedule Ambulatory Referral to Cardiology for Chest Pain Outpatient Referral Routine Atypical chest pain Ordered: 12/11/2024 documented as of this encounter Procedures Procedure Name Priority Date/Time Associated Diagnosis Comments HIGH SENSITIVITIY TROPONIN T 1HR STAT 12/11/2024 3:23 PM EDT ECG 12-LEAD STAT 12/11/2024 3:[address] ANGIOGRAM CHEST PULMONARY EMBOLISM STAT 12/11/2024 2:56 PM EDT XR CHEST 1 VW STAT 12/11/2024 2:38 PM EDT VERAS TOP STAT 12/11/2024 2:15 PM EDT GOLD TOP - SST STAT 12/11/2024 2:15 PM EDT DK GREEN TOP STAT 12/11/2024 2:15 PM EDT CBC WITH AUTO DIFFERENTIAL STAT 12/11/2024 2:15 PM EDT LAVENDER TOP STAT 12/11/2024 2:15 PM EDT LIGHT BLUE TOP STAT 12/11/2024 2:15 PM EDT RAINBOW DRAW STAT 12/11/2024 2:15 PM EDT TROPONIN STAT 12/11/2024 2:15 PM EDT CBC AND DIFFERENTIAL STAT 12/11/2024 2:15 PM EDT B-TYPE NATRIURETIC PEPTIDE STAT 12/11/2024 2:15 PM EDT LIPASE STAT 12/11/2024 2:15 PM EDT COMPREHENSIVE METABOLIC PANEL STAT 12/11/2024 2:15 PM EDT ECG 12-LEAD STAT 12/11/2024 2:10 PM EDT documented in this encounter Results * High Sensitivity Troponin T 1Hr (12/11/2024 3:23 PM EDT) HS Troponin T 7 <14 ng/L 12/11/2024 3:48 PM EDT [facility] Troponin T Numeric Delta -2 Abnormal if >/=3 ng/L 12/11/2024 3:48 PM EDT [facility] Blood Line / Unknown 12/11/2024 3: 23 PM EDT 12/11/2024 3:26 PM EDT Narrative [facility] - 12/11/2024 3:48 PM EDT High Sensitive Troponin T Reference Range: <14.0 ng/L- Negative Female for AMI <22.0 ng/L- Negative Male for AMI >=14 - Abnormal Female indicating possible myocardial injury. >=22 - Abnormal Male indicating possible myocardial injury. Clinicians would have to utilize clinical acumen, EKG, Troponin, and serial changes to determine if it is an Acute Myocardial Infarction or myocardial injury due to an underlying chronic condition. Abhilash Gonzalez DO LAB BLOOD ORDERABLES Final Result [facility]
[address] [place] [address], * ECG 12 Lead Chest Pain (12/11/2024 3:20 PM EDT) QT Interval 428 ms ECG QTC Interval 437 ms ECG 12/11/2024 3:20 PM EDT 12/20/2024 6:01 PM EDT Narrative ECG - 12/20/2024 6:01 PM EDT Test Reason : Chest Pain Blood Pressure : */* mmHG Vent. Rate : 63 BPM Atrial Rate : 63 BPM P-R Int : 170 ms QRS Dur : 76 ms QT Int : 428 ms P-R-T Axes : 46 28 32 degrees QTcB Int : 437 ms Normal sinus rhythm Normal ECG When compared with ECG of 11-Dec-2024 14:10, (Unconfirmed) No significant change was found Confirmed by Abhilash Gonzalez ([id number]) on 12/20/2024 6:01:12 PM Referred By: Confirmed By: Abhilash Gonzalez Procedure Note Abhilash Gonzalez DO - 12/20/2024 Test Reason : Chest Pain Blood Pressure : */* mmHG Vent. Rate : 63 BPM Atrial Rate : 63 BPM P-R Int : 170 ms QRS Dur : 76 ms QT Int : 428 ms P-R-T Axes : 46 28 32 degrees QTcB Int : 437 ms Normal sinus rhythm Normal ECG When compared with ECG of 11-Dec-2024 14:10, (Unconfirmed) No significant change was found Confirmed by Abhilash Gonzalez ([id number]) on 12/20/2024 6:01:12 PM Referred By: Confirmed By: Abhilash Gonzalez Abhilash Gonzalez DO ECG ORDERABLES Final Resul t ECG * CT Angiogram Chest Pulmonary Embolism (12/11/2024 2:56 PM EDT) Anatomical Region Laterality Modality Chest N/A Computed Tomogra phy 12/11/2024 3:20 PM EDT Impressions 12/11/2024 3:27 PM EDT Impression: 1.No evidence of acute pulmonary embolism. 2.Minimal hazy groundglass opacities within the right upper lobe and a possible tree-in-bud pattern. Findings are nonspecific and may be infectious or inflammatory. No consolidative changes. Electronically Signed: Girma Brock DO 12/11/2024 3:27 PM EDT Workstation ID: [id number] Narrative 12/11/2024 3:[address] ANGIOGRAM CHEST PULMONARY EMBOLISM Date of Exam: 12/11/2024 2:45 PM EDT Indication: Pulmonary Embolism. Comparison: None available. Technique: Axial CT images were obtained of the chest after the uneventful intravenous administration of 85 cc Isovue-370 utilizing pulmonary embolism protocol. In addition, a 3-D volume rendered image was created for interpretation. Reconstructed coronal and sagittal images were also obtained. Automated exposure control and iterative construction methods were used. Findings: Pulmonary arteries:Adequate opacification of the pulmonary arteries. No evidence of acute pulmonary embolism. Aorta: Unremarkable. Lungs and Pleura: Minimal hazy groundglass opacities noted within the right upper lobe and a possible tree-in-bud pattern. No consolidative changes. No discrete pulmonary lesions. The central airways are patent. No pleural effusion or pneumothorax Mediastinum/Sherrill: No lymphadenopathy. No suspicious mass. Heart: Normal in size. No pericardial effusion. Normal RV/LV ratio. Soft Tissue: Unremarkable. Upper Abdomen: Unremarkable. Bones: No acute osseous abnormality. Procedure Note Girma Brock, - 12/11/2024 CT ANGIOGRAM CHEST PULMONARY EMBOLISM Date of Exam: 12/11/2024 2:45 PM EDT Indication: Pulmonary Embolism. Comparison: None available. Technique: Axial CT images were obtained of the chest after the uneventfulintravenous administration of 85 cc Isovue-370 utilizing pulmonaryembolism protocol. In addition, a 3-D volume rendered image was createdfor interpretation. Reconstructed coronal and sagittal images were also obtained. Automated exposure controland iterative construction methods were used. Findings: Pulmonary arteries:Adequate opacification of the pulmonary arteries. Noevidence of acute pulmonary embolism. Aorta: Unremarkable. Lungs and Pleura: Minimal hazy groundglass opacities noted within theright upper lobe and a possible tree-in-bud pattern. No consolidative changes. No discrete pulmonary lesions. The central airways are patent. No pleuraleffusion or pneumothorax Mediastinum/Shrerill: No lymphadenopathy. No suspicious mass. Heart: Normal in size. No pericardial effusion. Normal RV/LV ratio. Soft Tissue: Unremarkable. Upper Abdomen: Unremarkable. Bones: No acute osseous abnormality. IMPRESSION: Impression: 1.No evidence of acute pulmonary embolism. 2.Minimal hazy groundglass opacities within the right upper lobe and apossible tree-in-bud pattern. Findings are nonspecific and may beinfectious or inflammatory. No consolidative changes. Electronically Signed: Girma Brock DO 12/11/2024 3:27 PM EDT Workstation ID: [id number] Esteban Pantoja PA-C IMG CT ORDERABLES Final Resu lt * XR Chest 1 View (12/11/2024 2:38 PM EDT) Anatomical Region Laterality Modality Body N/A Radiographic Loretta ging 12/11/2024 3:17 PM EDT Impressions 12/11/2024 3:17 PM EDT Impression: No active disease. Electronically Signed: Seth Spivey MD 12/11/2024 3:17 PM EDT Workstation ID: [id number] Narrative 12/11/2024 3:17 PM EDT XR CHEST 1 VW Date of Exam: 12/11/2024 2:24 PM EDT Indication: Chest pain Comparison: None available. Findings: The heart size is normal. The pulmonary vascular markings are normal. The lungs and pleural spaces are clear of active disease. There are chronic age-related changes involving the bony thorax and thoracic aorta. Procedure Note Seth Spivey MD - 12/11/2024 XR CHEST 1 VW Date of Exam: 12/11/2024 2:24 PM EDT Indication: Chest pain Comparison: None available. Findings: The heart size is normal. The pulmonary vascular markings are normal. Thelungs and pleural spaces are clear of active disease. There are chronicage-related changes involving the bony thorax and thoracic aorta. IMPRESSION: Impression: No active disease. Electronically Signed: Seth Spivey MD 12/11/2024 3:17 PM EDT Workstation ID: [id number] Abhilash Gonzalez DO IMG DIAGNOSTIC IMAGING ORDE RABDARY Final Result * (ABNORMAL) CBC Auto Differential (12/11/2024 2:15 PM EDT) WBC 6.22 3.40 - 10.80 10*3/mm3 12/11/2024 2:21 PM EDT [facility] RBC 4.80 3.77 - 5.28 10*6/mm3 12/11/2024 2:21 PM [facility] Hemoglobin 13.4 12.0 - 15.9 g/dL 12/11/2024 2:[facility] Hematocrit 39.7 34.0 - 46.6 % 12/11/2024 2:21 PM [facility] MCV 82.7 79.0 - 97.0 fL 12/11/2024 2:21 PM [facility] MCH 27.9 26.6 - 33.0 pg 12/11/2024 2:21 PM [facility] MCHC 33.8 31.5 - 35.7 g/dL 12/11/2024 2:21 PM [facility] RDW 12.5 12.3 - 15.4 % 12/11/2024 2:21 PM [facility] RDW-SD 38.1 37.0 - 54.0 fl 12/11/2024 2:21 PM [facility] MPV 9.8 6.0 - 12.0 fL 12/11/2024 2:21 PM [facility] Platelets 206 140 - 450 10*3/mm3 12/11/2024 2:21 PM [facility] Neutrophil % 66.8 42.7 - 76.0 % 12/11/2024 2:21 PM [facility] Lymphocyte % 24.8 19.6 - 45.3 % 12/11/2024 2:21 PM [facility] Monocyte % 4.7(L) 5.0 - 12.0 % 12/11/2024 2:21 PM [facility] Eosinophil % 2.9 0.3 - 6.2 % 12/11/2024 2:21 PM [facility] Basophil % 0.6 0.0 - 1.5 % 12/11/2024 2:21 PM [facility] Immature Grans % 0.2 0.0 - 0.5 % 12/11/2024 2:21 PM [facility] Neutrophils, Absolute 4.16 1.70 - 7.00 10*3/mm3 12/11/2024 2:21 PM EDT [facility] Lymphocytes, Absolute 1.54 0.70 - 3.10 10*3/mm3 12/11/2024 2:21 PM EDT [facility] Monocytes, Absolute 0.29 0.10 - 0.90 10*3/mm3 12/11/2024 2:21 PM EDT [facility] Eosinophils, Absolute 0.18 0.00 - 0.40 10*3/mm3 12/11/2024 2:21 PM EDT [facility] Basophils, Absolute 0.04 0.00 - 0.20 10*3/mm3 12/11/2024 2:21 PM EDT [facility] Immature Grans, Absolute 0.01 0.00 - 0.05 10*3/mm3 12/11/2024 2:21 PM EDT [facility] Blood Venipuncture / Unknown 12/11/2024 2:15 PM EDT 12/11/2024 2:18 PM EDT Abhilash Gonzalez DO LAB BLOOD ORDERABLES Final Result [facility]
[address] [facility] [address] [place] [address], [place] * Light Blue Top (12/11/2024 2:15 PM EDT) Extra Tube Hold for add-ons. 12/11/2024 2:31 PM EDT [facility] Comment:Auto resulted Blood Venipuncture / Unknown 12/11/2024 2:15 PM EDT 12/11/2024 2:18 PM EDT Abhilash Gonzalez DO LAB BLOOD ORDER ONLY Final Result [facility]
[address] [facility] [address] [place] [address], [place] * Veras Top (12/11/2024 2:15 PM EDT) Extra Tube Hold for add-ons. 12/11/2024 2:31 PM EDT [facility] Comment:Auto resulted. Blood Venipuncture / Unknown 12/11/2024 2:15 PM EDT 12/11/2024 2:18 PM EDT Abhilash Chavarria Nichellejordan DO LAB BLOOD ORDER ONLY Final Result [facility]
[address] [facility] [place] [address], [place] * Gold Top - SST (12/11/2024 2:15 PM EDT) Extra Tube Hold for add-ons. 12/11/2024 2:31 PM EDT [facility] Comment:Auto resulted. Blood Venipuncture / Unknown 12/11/2024 2:15 PM EDT 12/11/2024 2:18 PM EDT Abhilash Gonzalez DO LAB BLOOD ORDER ONLY Final Result Performing Organization Address City/[facility]/ZIP Co de Phone Number [facility]
[address] [facility] [address] [place] [address], [place] * Lavender Top (12/11/2024 2:15 PM EDT) Extra Tube hold for add-on 12/11/2024 2:31 PM EDT [facility] Comment:Auto resulted Blood Venipuncture / Unknown 12/11/2024 2:15 PM EDT 12/11/2024 2:18 PM EDT Abhilash Chavarria Nichelleseemablossom DO LAB BLOOD ORDER ONLY Final Result [facility]
[address] [facility] [place] [address], [place] * Green Top (Gel) (12/11/2024 2:15 PM EDT) Extra Tube Hold for add-ons. 12/11/2024 2:31 PM EDT [facility] Comment:Auto resulted. Blood Venipuncture / Unknown 12/11/2024 2:15 PM EDT 12/11/2024 2:18 PM EDT Abhilash Gonzalez DO LAB BLOOD ORDER ONLY Final Result [facility]
[address] [facility] [address] [place] [address], [place] * BNP (12/11/2024 2:15 PM EDT) proBNP 136.0 0.0 - 900.0 pg/mL 12/11/2024 2:36 PM EDT [facility] Blood Venipuncture / Unknown 12/11/2024 2:15 PM EDT 12/11/2024 2:18 PM EDT Narrative [facility] - 12/11/2024 2:36 PM EDT This assay is used as an aid in the diagnosis of individuals suspected of having heart failure. It can be used as an aid in the diagnosis of acute decompensated heart failure (ADHF) in patients presenting with signs and symptoms of ADHF to the emergency department (ED). In addition, NT-proBNP of <300 pg/mL indicates ADHF is not likely. Age Range Result Interpretation NT-proBNP Concentration (pg/mL: <50 Positive >450 Veras 300-450 Negative <300 50-75 Positive >900 Veras 300-900 Negative <300 >75 Positive >1800 Veras 300-1800 Negative <300 Abhilash Gonzalez DO LAB BLOOD ORDERABLES Final Result [facility]
[address] [facility] [address] [place] [address], [place] * Lipase (12/11/2024 2:15 PM EDT) Lipase 33 13 - 60 U/L 12/11/2024 2:38 PM EDT [facility] Blood Venipuncture / Unknown 12/11/2024 2:15 PM EDT 12/11/2024 2:18 PM EDT us Abhilash Gonzalez DO LAB BLOOD ORDERABLES Final Result [facility]
[address] [facility] [address] [place] [address], [place] * (ABNORMAL) Comprehensive Metabolic Panel (12/11/2024 2:15 PM EDT) Pathologist [facility] Glucose 104(H) 65 - 99 mg/dL 12/11/2024 2:39 PM EDT [facility] BUN 25.6(H) 8.0 - 23.0 mg/dL 12/11/2024 2:39 PM EDT [facility] Creatinine 1.21(H) 0.57 - 1.00 mg/dL 12/11/2024 2:39 PM EDT [facility] Sodium 143 136 - 145 mmol/L 12/11/2024 2:39 PM EDT [facility] Potassium 3.8 3.5 - 5.2 mmol/L 12/11/2024 2:39 PM EDT [facility] Chloride 105 98 - 107 mmol/L 12/11/2024 2:39 PM EDT [facility] CO2 19.9(L) 22.0 - 29.0 mmol/L 12/11/2024 2:39 PM EDT [facility] Calcium 10.6(H) 8.6 - 10.5 mg/dL 12/11/2024 2:39 PM EDT [facility] Total Protein 7.3 6.0 - 8.5 g/dL 12/11/2024 2:39 PM EDT [facility] Albumin 4.4 3.5 - 5.2 g/dL 12/11/2024 2:39 PM EDT [facility] ALT (SGPT) 27 1 - 33 U/L 12/11/2024 2:39 PM EDT [facility] AST (SGOT) 24 1 - 32 U/L 12/11/2024 2:39 PM EDT [facility] Alkaline Phosphatase 92 39 - 117 U/L 12/11/2024 2:39 PM EDT [facility] Total Bilirubin 0.3 0.0 - 1.2 mg/dL 12/11/2024 2:39 PM EDT [facility] Globulin 2.9 gm/dL 12/11/2024 2:39 PM EDT [facility] A/G Ratio 1.5 g/dL 12/11/2024 2:39 PM EDT [facility] BUN/Creatinine Ratio 21.2 7.0 - 25.0 12/11/2024 2:39 PM EDT [facility] Anion Gap 18.1(H) 5.0 - 15.0 mmol/L 12/11/2024 2:39 PM EDT [facility] eGFR 51.1(L) >60.0 mL/min/1.7 3 12/11/2024 2:39 PM EDT [facility] Blood Venipuncture / Unknown 12/11/2024 2:15 PM EDT 12/11/2024 2:18 PM EDT Narrative [facility] - 12/11/2024 2:39 PM EDT GFR Categories in Chronic Kidney Disease (CKD) GFR Category GFR (mL/min/1.73) Interpretation G1 90 or greater Normal or high (1) G2 60-89 Mild decrease (1) G3a 45-59 Mild to moderate decrease G3b 30-44 Moderate to severe decrease G4 15-29 Severe decrease G5 14 or less Kidney failure (1)In the absence of evidence of kidney disease, neither GFR category G1 or G2 fulfill the criteria for CKD. eGFR calculation 2020 CKD-EPI creatinine equation, which does not include race as a factor us Abhilash Gonzalez DO LAB BLOOD ORDERABLES Final Result [facility]
[address] [facility] [place] [address], * High Sensitivity Troponin T (12/11/2024 2:15 PM EDT) HS Troponin T 9 <14 ng/L 12/11/2024 2:35 PM EDT [facility] Blood Venipuncture / Unknown 12/11/2024 2:15 PM EDT 12/11/2024 2:18 PM EDT Abhilash Gonzalez DO LAB BLOOD ORDERABLES Final Result [facility]
[address] [facility] [address] [place] [address], [place] * ECG 12 Lead Chest Pain (12/11/2024 2:10 PM EDT) QT Interval 412 ms ECG QTC Interval 438 ms ECG 12/11/2024 2:10 PM EDT 12/11/2024 6:55 PM EDT Narrative ECG - 12/11/2024 6:55 PM EDT Test Reason : Chest Pain Blood Pressure : */* mmHG Vent. Rate : 68 BPM Atrial Rate : 68 BPM P-R Int : 128 ms QRS Dur : 72 ms QT Int : 412 ms P-R-T Axes : 16 56 44 degrees QTcB Int : 438 ms Normal sinus rhythm Normal ECG No previous ECGs available Confirmed by Abhilash Gonzalez ([id number]) on 12/11/2024 6:55:37 PM Referred By: Confirmed By: Abhilash Gonzalez Procedure Note Abhilash Gonzalez DO - 12/11/2024 Test Reason : Chest Pain Blood Pressure : */* mmHG Vent. Rate : 68 BPM Atrial Rate : 68 BPM P-R Int : 128 ms QRS Dur : 72 ms QT Int : 412 ms P-R-T Axes : 16 56 44 degrees QTcB Int : 438 ms Normal sinus rhythm Normal ECG No previous ECGs available Confirmed by Abhilash Gonzalez ([id number]) on 12/11/2024 6:55:37 PM Referred By: Confirmed By: Abhilash Gonzalez Abhilash Gonzalez DO ECG ORDERABLES Final Resul t BH ECG documented in this encounter Visit Diagnoses Diagnosis Atypical chest pain- Primary Other chest pain documented in this encounter Administered Medications Inactive Administered Medications - up to 3 most recent administrations Medication Order MAR Action Action Date Dose Rate Site aspirin chewable tablet 324 mg 324 mg, Oral, Once, On Sat12/11/24 at 1430, For 1 dose, Herbal/drug interaction: Avoid use with ginkgo biloba. Based on patient request - if ordered for moderate or severe pain, provider allows for administration of a medication prescribed for a lower pain scale. Do not exceed 4 grams of aspirin in a 24 hr period. If given for pain, use the following pain scale: Mild Pain = Pain Score of 1-3, CPOT 1-2 Moderate Pain = Pain Score of 4-6, CPOT 3-4 Severe Pain = Pain Score of 7-10, CPOT 5-8, Indications: Chest pain protocolIndications:Chest pain protocol Given 12/11/2024 2:14 PM EDT 324 mg iopamidol (ISOVUE-370) 76 % injection 100 mL 100 mL, Intravenous, Once in Imaging, On Sat12/11/24 at 1515, For 1 dose Given 12/11/2024 2:55 PM EDT 85 mL sodium chloride 0.9 % flush 10 mL 10 mL, Intravenous, As Needed, Line Care, Starting on Sat12/11/24 at 1406 documented in this encounter Active and Recently Administered Medications Times are shown in EDT. Scheduled Medication Order 12/09/2024 12/10/2024 12/11/2024 aspirin chewable tablet 324 mg (COMPLETED) 324 mg, Oral, Once, On Sat12/11/24 at 1430, For 1 dose, Herbal/drug interaction: Avoid use with ginkgo biloba. Based on patient request - if ordered for moderate or severe pain, provider allows for administration of a medication prescribed for a lower pain scale. Do not exceed 4 grams of aspirin in a 24 hr period. If given for pain, use the following pain scale: Mild Pain = Pain Score of 1-3, CPOT 1-2 Moderate Pain = Pain Score of 4-6, CPOT 3-4 Severe Pain = Pain Score of 7-10, CPOT 5-8, Indications: Chest pain protocol 1414 (Given - Provid er: Destiney Dey RN) iopamidol (ISOVUE-370) 76 % injection 100 mL (COMPLETED) 100 mL, Intravenous, Once in Imaging, On Sat12/11/24 at 1515, For 1 dose 1455 (Given - Provid er: Chang Lynn) PRN Medication Order 12/09/2024 12/10/2024 12/11/2024 sodium chloride 0.9 % flush 10 mL 10 mL, Intravenous, As Needed, Line Care, Starting on Sat12/11/24 at 1406 documented in this encounter Care Teams Vocational Instructor Relationship Specialty Start Date End Date Provider, [place] [address] PCP - General 12/11/24 documented as of this encounter
--- OUTSIDE RECORDS SUMMARY | 2024-12-18 09:00 | XMS_ITS | Encounter Summary ---
Author Organization [employer] ([place], [place], [place], [place]) Address [address] [place] [address] Care Team Providers Care Ruby On Rails Software Developer Name Role Phone Nick Rasmussen PA-C Unavailable [phone] Lena Aguilera APRN Primary Care Provider [phone] Nimisha Nuñez PA-C Unavailable [phone] Reason for Visit * Other (Routine) - Closed Specialty Diagnoses / Procedures Referred By Kai robins Referred To Contact Neurology Diagnoses Numbness and tingling of both upper extremities Procedures EMG W/ NCS Nick Rasmussen PA-C [address] [place] [address] Phone: tel: fax: Sharda Dexter MD [address] [facility] [address] [place] [address] Phone: tel: fax: Referral ID Status Reason Start Date Expiration Date Visits Re quested Visits Authorized [id number] Closed 11/19/2024 11/19/2025 1 1 Encounter Details Date Type Department Care Team (Late st Contact Info) Description 12/18/2024 9:00 AM EDT Procedure Visit [facility] Neurology - [place] [address] [place] [address] Nick Rasmussen PA-C [address] [place] [address] Sharda Dexter MD [address] [facility] [address] [place] [address] Numbness and tingling of both [...] Date Vijay rded Speak language other than Bengali at home Not on file 07/19/2023 Want [...] Description 02/11/2025 10:00 AM EDT Office Visit [facility] Orthopedics - [address] [place] [address] Nick Rasmussen PA-C [address] [place] [address] 08/19/2025 9:30 AM EST Appointment [facility] [address] [facility] [address] [place] [address] documented as of this encounter Visit Diagnoses Diagnosis Numbness and tingling of both upper extremities documented in this encounter Care Teams Ruby On Rails Software Developer Relationship Specialty Start Date End Date Lena Aguilera, MD PEDIATRIC ALLERGIST [address] [place] [address] PCP - General Family Medicine 10/28/23 Nick Rasmussen PA-C [address] [place] [address] Orthopedic Surgery 08/07/23 Nimisha Nuñez PA-C [address] [place] [address] Physician Refinery Operator Coking Orthopedic Surgery 02/05/24 documented as of this encounter
--- OUTSIDE RECORDS SUMMARY | 2024-12-23 14:15 | XMS_ITS | Encounter Summary ---
Author Organization [employer] ([place], [place], [place], [place]) Address [address] [place] [address] Care Team Providers Care Art Gilder Name Role Phone Nick Rasmussen PA-C Unavailable [phone] Lena Aguilera APRN Primary Care Provider [phone] Nimisha Nuñez PA-C Unavailable [phone] Reason for Visit * Reason Comments Follow-up BUE numbness and tin gling with EMG and lab results. Encounter Details Date Type Department Care Team (Late st Contact Info) Description 12/23/2024 2:15 PM EDT Office Visit [facility] Orthopedics - [address] [place] [address] Nick Rasmussen PA-C [address] [phone] Left carpal tunnel syndrome (Primary Dx) Social [...] Date Vijay rded Speak language other than Sinhala at home Not on file 07/19/2023 Want [...] were not included. 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, and she [...] Surgeon: Stephani Romero MD; Location: [facility]; Service: Gastroenterology; Laterality: N/A; HYSTERECTOMY KNEE SURGERY [...] 4/5 Flexion and Extension at wrist; 4/5 membership solicitor strength Neurovascular: capillary refill WNL, 2+ Radial pulse, +skin disturbance in median nerve distribution bilateral (less severe in left) Skin: normal appearance with no discoloration or wounds IMAGING/OUTSIDE REPORTS EMG report from [facility] performed on 12/18/24 was reviewed today revealing: [...] Description 02/11/2025 10:00 AM EDT Office Visit [facility] Orthopedics - [address] [place] [address] Nick Rasmussen PA-C [address] [place] [address] 08/19/2025 9:30 AM EST Appointment [facility] [address] [facility] [address] [place] [address] documented as of this encounter Visit Diagnoses Diagnosis Left carpal tunnel syndrome- Primary Carpal tunnel syndrome documented in this encounter Care Teams Art Gilder Relationship Specialty Start Date End Date Lena Aguilera APRN [address] [place] [address] PCP - General Family Medicine 10/28/23 Nick Rasmussen PA-C [address] [place], [place] [id number] Orthopedic Surgery 08/07/23 Nimisha Nuñez PA-C [address] [place], [place] [id number] Physician Radiation Officer Orthopedic Surgery 02/05/24 documented as of this encounter
--- OUTSIDE RECORDS SUMMARY | 2025-01-18 08:13 | XMS_ITS | Encounter Summary ---
[facility] Address [address] [place] [address] Care Team Providers Care Director Of Maternity Services Name Role Phone Provider, No Known Primary Care Provider Unavail able Encounter Details Date Type Department Care Team (Latest Contact Info) Description 12/11/2024 Travel Social History Tobacco Use Types Packs/Day [...] on file documented as of this encounter Functional Status * Calculated C-SSRS Risk Score (Lifetime/Recent) Answer Date of Assessment Author No Risk Indicated 12/11/2024 2:10 PM EDT Hu Dey RN * [place]entry Suicide Severity Rating Scale (Screener/Recent Self-Report) Question Answer Date of Assessment Author 1. Wish to be (Past 1 Month) No 025 2:10 PM EDT Destiney Dey, RN 2. Non-Specific Active Suici alma Thoughts (Past 1 Month) No 12/11/2024 2:10 PM EDT Destiney Dey , RN 6. Suicidal Behavior (Lifetime) No 5 2:10 PM EDT Destiney Dey, BENJAMIN documented as of this encounter Plan of Treatment Not on file documented as of this encounter Visit Diagnoses Not on filedocumented in this encounter Care Teams Director Of Maternity Services Relationship Specialty Start Date End Date Provider, [place] [address] PCP - General 12/11/24 documented as of this encounter
--- OUTSIDE RECORDS SUMMARY | 2025-01-18 08:13 | XMS_ITS | Encounter Summary ---
Author Organization [employer] ([place], [place], [place], [place]) Address [address] [place] [address] Care Team Providers Care Department Chairperson Name Role Phone Nick Rasmussen PA-C Unavailable [phone] Lena Aguilera APRN Primary Care Provider [phone] Nimisha Nuñez PA-C Unavailable [phone] Encounter Details Date Type Department Care Team (Late st Contact Info) Description 12/18/2024 Orders Only [facility] - [facility] [address] [facility] [address] [place] [address] Provider, MD Beena [facility] [place] [address] Social History Tobacco Use Types [...] Date Vijay rded Speak language other than Kiswahili at home Not on file 07/19/2023 Want [...] Office Visit [facility] - [address] [place] [address] Nick Rasmussen PA-C [address] [place] [address] 08/19/2025 9:30 AM EST Appointment [facility] [address] [place] [address] documented as of this encounter Procedures Procedure Name Priority Date/Time Associated Diagnosis Comments EMG W/NCS Routine 12/18/2024 1:44 PM EDT documented in this encounter Results * EMG W/ NCS (12/18/2024 1:44 PM EDT) Anatomical Region Laterality Modality Other us Historical Provider NEUROLOGY ORDERABLES (MCT ) Final Result documented in this encounter Visit Diagnoses Not on filedocumented in this encounter Care Teams Department Chairperson Relationship Specialty Start Date End Date Lena Aguilera APRN [address] [place] [address] PCP - General Family Medicine 10/28/23 Nick Rasmussen PA-C [address] [place] [address] Orthopedic Surgery 08/07/23 Nimisha Nuñez PA-C [address] [place] [address] Physician Chore Worker Orthopedic Surgery 02/05/24 documented as of this encounter
--- OUTSIDE RECORDS SUMMARY | 2025-01-18 08:13 | XMS_ITS | Clinical Summary ---
[facility] Address [address] [place] [address] Care Team Providers Care Medical Laboratory Technical Officer Name Role Phone Provider, No Known Primary Care Provider Unavail able Allergies No known active allergies Medications azithromycin (Zithromax Z-Seamus) 250 MG tablet Take 2 tablets by mouth on day 1, then 1 tablet daily on days 2-5 6 tablet 12/11/2024 Active diclofenac (VOLTAREN) 75 MG EC tablet Take 1 tablet by mouth 2 (Two) Times a Day. 12 tablet 12/11/2024 Active Encounters Date Type Department Care Team Description 12/11/2024 2:04 PM EDT - 12/11/2024 5:42 PM EDT Emergency [facility] [address] [place] [address] Abhilash Gonzalez, DO Atypical chest pain (Primary Dx) Discharge Disposition: Home or Self Care 12/11/2024 Travel from Last 3 Months Social History Tobacco Use Types Packs/Day Years [...] Mass Index 33.85 12/11/2024 2:09 PM EDT Plan of Treatment Health Maintenance Due Date Last Done Comments ANNUAL PHYSICAL 1965 Annual Gynecologic Pelvic an d Breast Exam 1965 HEPATITIS C SCREENING 1965 TDAP/TD VACCINES (1 - Tdap) 10/23/1982 COLOGUARD 10/23/2008 COLON CANCER SCREENING 5 YEA R SIGMOIDOSCOPY 10/23/2008 COLONOSCOPY 10/23/2008 COLORECTAL CANCER SCREENING 10/23/2008 CT COLONOGRAPHY 10/23/2008 FECAL OCCULT BLOOD TEST 10/23/2008 FIT Testing (1 year) 10/23/2008 Pneumococcal Vaccine 50+ (1 of 1 - PCV) 10/23/2013 ZOSTER VACCINE (1 of 2) 10/23/2013 COVID-19 Vaccine ( - 2023-2 5 season) 2024 INFLUENZA VACCINE 03/31/2025 MAMMOGRAM 09/10/2026 09/10/2024, 0308/2024, 08/13/2024, Additional history exists Procedures Procedure Name Priority Date/Time Associated Diagnosis Comments HIGH SENSITIVITIY TROPONIN T 1HR STAT 12/11/2024 3:23 PM EDT ECG 12-LEAD STAT 12/11/2024 3:[address] ANGIOGRAM CHEST PULMONARY EMBOLISM STAT 12/11/2024 2:56 PM EDT XR CHEST 1 VW STAT 12/11/2024 2:38 PM EDT LIGHT BLUE TOP STAT 12/11/2024 2:15 PM EDT VERAS TOP STAT 12/11/2024 2:15 PM EDT GOLD TOP - SST STAT 12/11/2024 2:15 PM EDT LAVENDER TOP STAT 12/11/2024 2:15 PM EDT DK GREEN TOP STAT 12/11/2024 2:15 PM EDT CBC AND DIFFERENTIAL STAT 12/11/2024 2:15 PM EDT CBC WITH AUTO DIFFERENTIAL STAT 12/11/2024 2:15 PM EDT B-TYPE NATRIURETIC PEPTIDE STAT 12/11/2024 2:15 PM EDT LIPASE STAT 12/11/2024 2:15 PM EDT COMPREHENSIVE METABOLIC PANEL STAT 12/11/2024 2:15 PM EDT TROPONIN STAT 12/11/2024 2:15 PM EDT RAINBOW DRAW STAT 12/11/2024 2:15 PM EDT ECG 12-LEAD STAT 12/11/2024 2:10 PM EDT from Last 3 Months Results * High Sensitivity Troponin T 1Hr (12/11/2024 3:23 PM EDT) [facility] HS Troponin T 7 <14 ng/L 12/11/2024 3:48 PM EDT [facility] Troponin T Numeric Delta -2 Abnormal if >/=3 ng/L 12/11/2024 3:48 PM EDT [facility] Blood Line / Unknown 12/11/2024 3: 23 PM EDT 12/11/2024 3:26 PM EDT Narrative [facility] - 12/11/2024 3:48 PM EDT [...] injury due to an underlying chronic condition. us Abhilash Gonzalez DO LAB BLOOD ORDERABLES Final Result [facility]
[address] [place] [address], * ECG 12 Lead Chest Pain (12/11/2024 3:20 PM EDT) Only the most recent of2 resultswithin the time period is included. Pathologist [facility] QT Interval 428 ms ECG QTC Interval 437 ms ECG 12/11/2024 3:20 PM EDT 12/20/2024 6:[address] [facility] ECG - 12/20/2024 6:01 PM EDT Test [...] change was found Confirmed by Abhilash Gonzalez ([id number]) on 12/20/2024 6:01:12 PM Referred By: Confirmed [...] change was found Confirmed by Abhilash Gonzalez ([id number]) on 12/20/2024 6:01:12 PM Referred By: Confirmed By: Abhilash Gonzalez us Abhilash Gonzalez DO ECG ORDERABLES Final Resul [...] DO 12/11/2024 3:27 PM EDT Workstation ID: [id number] Narrative 12/11/2024 3:[address] ANGIOGRAM [...] DO 12/11/2024 3:27 PM EDT Workstation ID: [id number] Esteban Pantoja PA-C IMG CT ORDERABLES Final Resu lt * XR Chest 1 View (12/11/2024 2:38 PM EDT) Anatomical Region Laterality Modality Body N/A Radiographic Loretta ging 12/11/2024 3:17 PM EDT Impressions 12/11/2024 3:17 PM EDT Impression: No active disease. Electronically Signed: Seth Spivey MD 12/11/2024 3:17 PM EDT Workstation ID: [id number] Narrative 12/11/2024 3:17 PM EDT XR CHEST [...] MD 12/11/2024 3:17 PM EDT Workstation ID: [id number] Abhilash Gonzalez DO IMG DIAGNOSTIC IMAGING ORDE RABLES Final Result * Veras Top (12/11/2024 2:15 PM EDT) Extra Tube Hold for add-ons. 12/11/2024 2:31 PM EDT [facility] Comment:Auto resulted. Blood Venipuncture / Unknown 12/11/2024 2:15 PM EDT 12/11/2024 2:18 PM EDT Abhilash Stewardjordan DO LAB BLOOD ORDER ONLY Final Result [facility]
[address] [facility] [address] [place] [address], [place] * Gold Top - SST (12/11/2024 2:15 PM EDT) Extra Tube Hold for add-ons. 12/11/2024 2:31 PM EDT [facility] Comment:Auto resulted. Blood Venipuncture / Unknown 12/11/2024 2:15 PM EDT 12/11/2024 2:18 PM EDT Abhilash Stewardjordan DO LAB BLOOD ORDER ONLY Final Result Performing Organization Address City/[facility]/ZIP Co de Phone Number [facility]
[address] [place] [address], [place] * Green Top (Gel) (12/11/2024 2:15 PM EDT) Extra Tube Hold for add-ons. 12/11/2024 2:31 PM EDT [facility] Comment:Auto resulted. Blood Venipuncture / Unknown 12/11/2024 2:15 PM EDT 12/11/2024 2:18 PM EDT Abhilash Stewardseemablossom DO LAB BLOOD ORDER ONLY Final Result [facility]
[address] [facility] [address] [place] [address], [place] * (ABNORMAL) CBC Auto Differential (12/11/2024 2:15 PM EDT) WBC 6.22 3.40 - 10.80 10*3/mm3 12/11/2024 2:21 PM EDT [facility] RBC 4.80 3.77 - 5.28 10*6/mm3 12/11/2024 2:21 PM [facility] Hemoglobin 13.4 12.0 - 15.9 g/dL 12/11/2024 2:21 PM [facility] Hematocrit 39.7 34.0 - 46.6 % 12/11/2024 2:21 PM [facility] MCV 82.7 79.0 - 97.0 fL 12/11/2024 2:21 PM [facility] MCH 27.9 26.6 - 33.0 pg 12/11/2024 2:21 PM [facility] MCHC 33.8 31.5 - 35.7 g/dL 12/11/2024 2:21 PM [facility] RDW 12.5 12.3 - 15.4 % 12/11/2024 2:21 PM [facility] RDW-SD 38.1 37.0 - 54.0 fl 12/11/2024 2:21 PM [facility] MPV 9.8 6.0 - 12.0 fL 12/11/2024 2:21 PM [facility] Platelets 206 140 - 450 10*3/mm3 12/11/2024 2:21 PM [facility] Neutrophil % 66.8 42.7 - 76.0 % 12/11/2024 2:21 PM [facility] Lymphocyte % 24.8 19.6 - 45.3 % 12/11/2024 2:21 PM [facility] Monocyte % 4.7(L) 5.0 - 12.0 % 12/11/2024 2:21 PM [facility] Eosinophil % 2.9 0.3 - 6.2 % 12/11/2024 2:21 PM [facility] Basophil % 0.6 0.0 - 1.5 % 12/11/2024 2:21 PM [facility] Immature Grans % 0.2 0.0 - 0.5 % 12/11/2024 2:21 PM [facility] Neutrophils, Absolute 4.16 1.70 - 7.00 10*3/mm3 12/11/2024 2:21 PM EDT [facility] Lymphocytes, Absolute 1.54 0.70 - 3.10 10*3/mm3 12/11/2024 2:21 PM EDT [facility] Monocytes, Absolute 0.29 0.10 - 0.90 10*3/mm3 12/11/2024 2:21 PM EDT [facility] Eosinophils, Absolute 0.18 0.00 - 0.40 10*3/mm3 12/11/2024 2:21 PM EDT [facility] Basophils, Absolute 0.04 0.00 - 0.20 10*3/mm3 12/11/2024 2:21 PM EDT [facility] Immature Grans, Absolute 0.01 0.00 - 0.05 10*3/mm3 12/11/2024 2:21 PM EDT [facility] Blood Venipuncture / Unknown 12/11/2024 2:15 PM EDT 12/11/2024 2:18 PM EDT Abhilash Gonzalez DO LAB BLOOD ORDERABLES Final Result [facility]
[address] [place] [address], [place] * Lavender Top (12/11/2024 2:15 PM EDT) Extra Tube hold for add-on 12/11/2024 2:31 PM EDT [facility] Comment:Auto resulted Blood Venipuncture / Unknown 12/11/2024 2:15 PM EDT 12/11/2024 2:18 PM EDT Abhilash Gonzalez DO LAB BLOOD ORDER ONLY Final Result [facility]
[address] [facility] [place] [address], [place] * Light Blue Top (12/11/2024 2:15 PM EDT) Extra Tube Hold for add-ons. 12/11/2024 2:31 PM EDT [facility] Comment:Auto resulted Blood Venipuncture / Unknown 12/11/2024 2:15 PM EDT 12/11/2024 2:18 PM EDT Abhilash Gonzalez DO LAB BLOOD ORDER ONLY Final Result [facility]
[address] [place] [address], * High Sensitivity Troponin T (12/11/2024 2:15 PM EDT) [facility] HS Troponin T 9 <14 ng/L 12/11/2024 2:35 PM EDT [facility] Blood Venipuncture / Unknown 12/11/2024 2:15 PM EDT 12/11/2024 2:18 PM EDT Abhilash Gonzalez DO LAB BLOOD ORDERABLES Final Result [facility]
[address] [place] [address], * BNP (12/11/2024 2:15 PM EDT) Pathologist [facility] proBNP 136.0 0.0 - 900.0 pg/mL 12/11/2024 2:36 PM EDT [facility] Blood Venipuncture / Unknown 12/11/2024 2:15 PM EDT 12/11/2024 2:18 PM EDT Narrative [facility] - 12/11/2024 2:36 PM EDT [...] >1800 Veras 300-1800 Negative <300 Abhilash Gonzalez LAB BLOOD ORDERABLES Final Result Performing Organization Address City/[facility]/ZIP Co de Phone Number [facility]
[address] [place] [address], * Lipase (12/11/2024 2:15 PM EDT) Pathologist [facility] Lipase 33 13 - 60 U/L 12/11/2024 2:38 PM EDT [facility] Blood Venipuncture / Unknown 12/11/2024 2:15 PM EDT 12/11/2024 2:18 PM EDT Abhilash Gonzalez LAB BLOOD ORDERABLES Final Result Performing Organization Address [facility]/ZIP Co de Phone Number [facility]
[address] [place] [address], * (ABNORMAL) Comprehensive Metabolic Panel (12/11/2024 2:15 PM EDT) Glucose 104(H) 65 - 99 mg/dL 12/11/2024 2:39 PM EDT [facility] BUN 25.6(H) 8.0 - 23.0 mg/dL 12/11/2024 2:39 PM EDT [facility] Creatinine 1.21(H) 0.57 - 1.00 mg/dL 12/11/2024 2:39 PM EDT [facility] Sodium 143 136 - 145 mmol/L 12/11/2024 2:39 PM EDT [facility] Potassium 3.8 3.5 - 5.2 mmol/L 12/11/2024 2:39 PM EDT [facility] Chloride 105 98 - 107 mmol/L 12/11/2024 2:39 PM EDT [facility] CO2 19.9(L) 22.0 - 29.0 mmol/L 12/11/2024 2:39 PM EDT [facility] Calcium 10.6(H) 8.6 - 10.5 mg/dL 12/11/2024 2:39 PM T [facility] Total Protein 7.3 6.0 - 8.5 g/dL 12/11/2024 2:39 PM EDT [facility] Albumin 4.4 3.5 - 5.2 g/dL 12/11/2024 2:39 PM EDT [facility] ALT (SGPT) 27 1 - 33 U/L 12/11/2024 2:39 PM T [facility] AST (SGOT) 24 1 - 32 U/L 12/11/2024 2:39 PM T [facility] Alkaline Phosphatase 92 39 - 117 U/L 12/11/2024 2:39 PM [facility] Total Bilirubin 0.3 0.0 - 1.2 mg/dL 12/11/2024 2:39 PM [facility] Globulin 2.9 gm/dL 12/11/2024 2:39 PM [facility] A/G Ratio 1.5 g/dL 12/11/2024 2:39 PM [facility] BUN/Creatinine Ratio 21.2 7.0 - 25.0 12/11/2024 2:39 PM [facility] Anion Gap 18.1(H) 5.0 - 15.0 mmol/L 12/11/2024 2:39 PM [facility] eGFR 51.1(L) >60.0 mL/min/1.7 3 12/11/2024 2:39 PM [facility] Blood Venipuncture / Unknown 12/11/2024 2:15 PM EDT 12/11/2024 2:18 PM EDT [facility] - 12/11/2024 2:39 PM EDT GFR [...] Gonzalez DO LAB BLOOD ORDERABLES Final Result [facility]
[address] [facility] [place] [address], from Last 3 Months Insurance Care Teams Medical Laboratory Technical Officer Relationship Specialty Start Date End Date Provider, [place] [address] PCP - General 12/11/24
--- OUTSIDE RECORDS SUMMARY | 2025-01-18 08:13 | XMS_ITS | Encounter Summary ---
Author Organization [employer] ([place], [place], [place], [place]) Address [address] [place] [address] Care Team Providers Care Extension Associate Name Role Phone Nick Rasmussen PA-C Unavailable [phone] Lena Aguilera APRN Primary Care Provider [phone] Nimisha Nuñez PA-C Unavailable [phone] Encounter Details Date Type Department Care Team [...] Date Vijay rded Speak language other than American at home Not on file 07/19/2023 Want [...] Description 02/11/2025 10:00 AM EDT Office Visit [facility] - [address] [place] [phone] Nick Rasmussen PA-C [address] [place] [address] 08/19/2025 9:30 AM EST Appointment [facility] [address] [place] [address] documented as of this encounter Visit Diagnoses Not on filedocumented in this encounter Care Teams Extension Associate Relationship Specialty Start Date End Date Lena Aguilera, GAS SHOVEL OPERATOR [address] [place] [address] PCP - General Family Medicine 10/28/23 Nick Rasmussen PA-C [address] [place] [address] Orthopedic Surgery 08/07/23 Niimsha Nuñez PA-C [address] [place] [address] Physician Aerodynamic Consultant Orthopedic Surgery 02/05/24 documented as of this encounter
--- OUTSIDE RECORDS SUMMARY | 2025-01-18 08:13 | XMS_ITS | Encounter Summary ---
Author Organization [employer] ([place], [place], [place], [place]) Address [address] [place] [address] Care Team Providers Care National Sales Manager Name Role Phone Nick Rasmussen PA-C Unavailable [phone] Lena Aguilera APRN Primary Care Provider [phone] Nimisha Nuñez PA-C Unavailable [phone] Encounter Details Date Type Department Care Team [...] Date Vijay rded Speak language other than Sammarinese at home Not on file 07/19/2023 Want [...] Description 02/11/2025 10:00 AM EDT Office Visit [facility] Orthopedics - [address] [place] [address] Nick Rasmussen PA-C [address] [place] [address] 08/19/2025 9:30 AM EST Appointment [facility] [address] [facility] [address] [place] [address] documented as of this encounter Visit Diagnoses Not on filedocumented in this encounter Care Teams National Sales Manager Relationship Specialty Start Date End Date Lena Aguilera, MILKING MACHINE TECHNICIAN [address] [place] [address] PCP - General Family Medicine 10/28/23 Nick Rasmussen PA-C [address] [place] [address] Orthopedic Surgery 08/07/23 Nimisha Nuñez PA-C [address] [place] [address] Physician Shop Estimator Orthopedic Surgery 02/05/24 documented as of this encounter
--- OUTSIDE RECORDS SUMMARY | 2025-01-18 08:14 | XMS_ITS | Encounter Summary ---
Author Organization [employer] ([place], [place], [place], [place]) Address [address] [place] [address] Care Team Providers Care Personal Security Specialist Name Role Phone Krystyna Elliott [facility] Primary Care Provider Nick Rasmussen PA-C Unavailable [phone] Lena Aguilera APRN Primary Care Provider [phone] Nimisha Nuñez PA-C Unavailable [phone] Encounter Details Date Type Department Care Team (Late st Contact Info) Description 12/17/2019 Transcribed Document [address] [address] Provider, Audra Hargrove MD Social History Tobacco Use Types Packs/Day Years Used Date Smoking Tobacco: Never Assessed Comments Unknown Sex and Gender Information Value Date Recorded Sex Assigned at Not on file Legal Sex Female 6:57 PM CDT Gender Identity Not on file Sexual Orientation Not on file documented as of this encounter Miscellaneous Notes * Cerner Conversion Note - [facility] Beena ProviderMD - 12/17/2019 10:36 AM EDT CAROLYN Main OR PreOp Summary Primary Physician: DRAGAN FLAHERTY MD-ORT Finalized Date/Time: 12/17/19 10:46:48 Pt. Name: ANISA KATZISE /Sex: 1965 Female Med Rec #: [id number] Physician: DRAGAN FLAHERTY MD-ORT Financial #: [id number] Pt. Type: O Room/Bed: [facility]/4 Admit/Disch: 12/17/19 04:47:00 - [place] [facility] [place] Times Entry 1 In Preop 12/17/19 06:50:00 Ready for Holding n/a Room Patient Ready for 12/17/19 08:36:00 Surgery Patient Out of Preop 12/17/19 09:30:00 Patient Out of n/a Holding Room Last Modified By: ELIGIO SCALES 12/17/19 10:46:47 Kiara PreOp Case Times Audit 12/17/19 10:46:47 Sales Audit Clerk: SHALINI Modifier: [email or web address] <+> 1 Patient Out of Preop 12/17/19 08:36:21 Sales Audit Clerk: SHALINI Modifier: [email or web address] <+> 1 Patient Ready for Surgery Finalized By: ELIGIO SCALES Document Signatures Signed By: ELIGIO SCALES 12/17/19 10:46 Electronically signed by Ranjan [facility] Conversion Station Tender Cerner at 11/21/2022 11:15 AM CDT documented in this encounter Plan of Treatment Upcoming Encounters Date Type Department Care Team (Late st Contact Info) Description 02/11/2025 10:00 AM EDT Office Visit [facility] Orthopedics - [address] [place] [address] Nick Rasmussen PA-C [address] [place] [address] 08/19/2025 9:30 AM EST Appointment [facility] [address] [facility] [address] [place] [address] documented as of this encounter Visit Diagnoses Not on filedocumented in this encounter Care Teams Personal Security Specialist Relationship Specialty Start Date End Date Krystyna Elliott [facility] At [address] [address] PCP - General 09/19/22 10/27/23 Lena Aguilera, KALIN [address] [place] [address] PCP - General Family Medicine 10/28/23 Nick Rasmussen PA-C [address] [place], [place] [id number] Orthopedic Surgery 08/07/23 Nimisha Nuñez PA-C [address] [place], [place] [address] Physician Alterations Workroom Clerk Orthopedic Surgery 02/05/24 documented as of this encounter
--- OUTSIDE RECORDS SUMMARY | 2025-01-18 08:14 | XMS_ITS | Encounter Summary ---
Author Organization [employer] ([place], [place], [place], [place]) Address [address] [place] [address] Care Team Providers Care Radiation Safety Officer Name Role Phone Krystyna Elliott [facility] Primary Care Provider Nick Rasmussen PA-C Unavailable [phone] Lena Aguilera APRN Primary Care Provider [phone] Nimisha Nuñez PA-C Unavailable [phone] Encounter Details Date Type Department Care Team (Late st Contact Info) Description 12/17/2019 Transcribed Document [facility] 1 [place] [address] Provider, Audra Hargrove MD Social History Tobacco Use Types Packs/Day Years Used Date Smoking Tobacco: Never Assessed Comments Unknown Sex and Gender Information Value Date Recorded Sex Assigned at Not on file Legal Sex Female 6:57 PM CDT Gender Identity Not on file Sexual Orientation Not on file documented as of this encounter Miscellaneous Notes * Cerner Conversion Note - [facility] Beena ProviderMD - 12/17/2019 10:36 AM EDT CAROL[facility] Main OR PACU Summary Primary Physician: DRAGAN FLAHERTY MD-ORT Finalized Date/Time: 12/17/19 10:50:47 Pt. Name: MAGALYANISA WALLISE /Sex: 1965 Female Med Rec #: [id number] Physician: DRAGAN FLAHERTY MD-ORT Financial #: [id number] Pt. Type: O Room/Bed: [facility]/4 Admit/Disch: 12/17/19 04:47:00 - [place] [facility] [place] PACU Case [...] Description 02/11/2025 10:00 AM EDT Office Visit [facility] Orthopedics - [facility] [address] [place] [address] Nick Rasmussen PA-C [address] [place] [address] 08/19/2025 9:30 AM EST Appointment [facility] 160 [facility] [address] [place] [address] documented as of this encounter Visit Diagnoses Not on filedocumented in this encounter Care Teams Radiation Safety Officer Relationship Specialty Start Date End Date [address] [facility] [place] [address] PCP - General 09/19/22 10/27/23 Lena Aguilera, KALIN [address] [place] [address] PCP - General Family Medicine 10/28/23 Nick Rasmussen PA-C [address] [place] [address] Orthopedic Surgery 2/7/24 Nimisha Nuñez PA-C 211 [place] [address] Physician Crnp Orthopedic Surgery 02/05/24 documented as of this encounter
--- OUTSIDE RECORDS SUMMARY | 2025-01-18 08:14 | XMS_ITS | Encounter Summary ---
Author Organization [employer] ([place], [place], [place], [place]) Address [address] [place] [address] Care Team Providers Care Director Trial Name Role Phone Krystyna Elliott [facility] Primary Care Provider Nick Rasmussen PA-C Unavailable [phone] Lena Aguilera APRN Primary Care Provider [phone] Nimisha Nuñez PA-C Unavailable [phone] Encounter Details Date Type Department Care Team (Late st Contact Info) Description 12/03/2019 Transcribed Document [facility] Radiology 1 [place] [address] Provider, Audra Hargrove MD Social History Tobacco Use Types Packs/Day Years Used Date Smoking Tobacco: Never Assessed Comments Unknown Sex and Gender Information Value Date Recorded Sex Assigned at Not on file Legal Sex Female 6:57 PM CDT Gender Identity Not on file Sexual Orientation Not on file documented as of this encounter Miscellaneous Notes * Cerner Conversion Note - [facility] Beena ProviderMD - 12/03/2019 9:50 AM EDT Patient: ANISA KATZ Age: 54 Years Sex: Female : 1965 Chief Complaint Right Knee Pain Primary Care Provider NEYDA JOINER (REF), FIBERGLASS CONTAINER WINDING OPERATOR-FAM History of Present Illness This patient is [...] # 1.08 K/uL (Low) 12/03/2019 08:43 EDT [place] % 7.5 % 12/03/2019 08:43 EDT [place] # 0.41 K/uL 12/03/2019 08:43 EDT Eos [...] Description 02/11/2025 10:00 AM EDT Office Visit [facility] Orthopedics - [address] [place] [address] Nick Rasmussen PA-C [address] [place] [address] 08/19/2025 9:30 AM EST Appointment [facility] [address] [facility] [address] [place] [address] documented as of this encounter Visit Diagnoses Not on filedocumented in this encounter Care Teams Director Trial Relationship Specialty Start Date End Date [facility] At [address] [id number] PCP - General 09/19/22 10/27/23 Lena Aguilera, TEXTILES PRINTER [address] [place] [address] PCP - General Family Medicine 10/28/23 Nick Rasmussen PA-C [address] [place] [address] Orthopedic Surgery 08/07/23 Nimisha Nuñez PA-C [address] [place] [address] Physician Property Site Manager Orthopedic Surgery 02/05/24 documented as of this encounter
--- OUTSIDE RECORDS SUMMARY | 2025-01-18 08:15 | XMS_ITS | Encounter Summary ---
Author Organization [employer] ([place], [place], [place], [place]) Address [address] [place] [address] Care Team Providers Care Salvationist Name Role Phone Krystyna Elliott [facility] Primary Care Provider Nick Rasmussen PA-C Unavailable [phone] Lena Aguilera APRN Primary Care Provider [phone] Nimisha Nuñez PA-C Unavailable [phone] Encounter Details Date Type Department Care Team (Late st Contact Info) Description 12/17/2019 Transcribed Document [facility] 1 [place] [address] Provider, Audra Hargrove MD Social History Tobacco Use Types Packs/Day Years Used Date Smoking Tobacco: Never Assessed Comments Unknown Sex and Gender Information Value Date Recorded Sex Assigned at Not on file Legal Sex Female 6:57 PM CDT Gender Identity Not on file Sexual Orientation Not on file documented as of this encounter Miscellaneous Notes * Cerner Conversion Note - [facility] Beena ProviderMD - 12/17/2019 9:10 AM EDT Pre Procedure Adult Entered On: 12/17/2019 8:16 EDT Performed On: 12/17/2019 8:10 EDT by Paola Lacy RN Height and Weight, Clinical Dosing Height Source : Stated Height Entry Format : Blair Height, Feet : 5 ft(Converted to: 152 cm, 60 Inch) Height, Inches : 3 Inch(Converted to: 0 ft 3 Inch, 7.62 cm) Clinical Height : 160.02 cm Weight Source : Standing scale Weight Entry Format : Blair Clinical Dosing Weight : 101.36 kg Weight, Pounds : 223 lb Body Surface Area (BSA) : 2.03 m2 Body Mass Index : 39.6 kg/m2 (HI) Holman Body Weight : 52 kg Paola Lacy [...] Where was the COVID-19 Testing completed? : [facility] Where are the test results? : In [...] Paola Lacy RN - 12/17/2019 8:10 EDT [place] Suicide Severity Rating Scale (C-SSRS) CSSRS Past [...] Obtained From : Patient Primary Language : Yakut Preferred Communication Mode : Verbal Communication Barrier [...] Scale Risk Level : 25-45 Medium Risk [place] Fall Interventions : Adequate lighting, Bed in [...] the text rendition version of the form. [place] Coma Cosme Best Motor Response : Obey commands Cosme Best Verbal Response : Oriented [place] Eye Opening Response : Spontaneous [place] Coma Score : 15 Paola Lacy RN - 12/17/2019 8:10 EDT documented in this encounter Plan of Treatment Upcoming Encounters Date Type Department Care Team (Late st Contact Info) Description 02/11/2025 10:00 AM EDT Office Visit [facility] Orthopedics - [address] [place] [address] Nick Rasmussen PA-C [address] [place] [address] 08/19/2025 9:30 AM EST Appointment [facility] 160 [facility] [address] [place] [address] documented as of this encounter Visit Diagnoses Not on filedocumented in this encounter Care Teams Salvationist Relationship Specialty Start Date End Date [facility] [place] [address] PCP - General 09/19/22 10/27/23 Lena Aguilera APRN [address] [place] [address] PCP - General Family Medicine 10/28/23 Nick Rasmussen PA-C [address] [place] [address] Orthopedic Surgery 08/07/23 Nimisha Nuñez PA-C [address] [place], [place] [address] Physician Supervisor C[employer]ats Orthopedic Surgery 02/05/24 documented as of this encounter
--- OUTSIDE RECORDS SUMMARY | 2025-01-18 08:15 | XMS_ITS | Encounter Summary ---
Author Organization [employer] ([place], [place], [place], [place]) Address [address] [place] [address] Care Team Providers Care Rescue Worker Name Role Phone Krystyna Elliott [facility] Primary Care Provider Nick Rasmussen PA-C Unavailable [phone] Lena Aguilera APRN Primary Care Provider [phone] Nimisha Nuñez PA-C Unavailable [phone] Encounter Details Date Type Department Care Team (Late st Contact Info) Description 12/17/2019 Transcribed Document [facility] 1 [place] [address] Provider, Audra Hargrove MD Social [...] Note - [facility] Beena ProviderMD - 12/17/2019 10:36 AM EDT CAR[facility] Main OR IntraOp Summary Primary Physician: DRAGAN FLAHERTY MD-ORT Finalized Date/Time: 12/17/19 11:02:35 Pt. Name: ANISA KATZISE /Sex: 1965 Female Med Rec #: [id number] Physician: DRAGAN FLAHERTY MD-ORT Financial #: [id number] Pt. Type: O Room/Bed: [facility]/4 Admit/Disch: 12/17/19 04:47:00 - [place] [facility] [place] Attendance Entry 1 Entry 2 Entry 3 Case Attendee DRAGAN FLAHERTY WICKER, KAREN KIM, CLUB STEWARD Esteban Abbasi RN MD-ORT Role Performed Surgeon/Proceduralist, CLUB STEWARD/Nurse Diesel Power Mechanic Circuitry Negative Inspector, First First Time In 12/17/19 09:22:00 12/17/19 [...] Kian Ornelas, Scrub Assist Tech Role Performed Circuitry Negative Inspector, Second Bone Char Kiln Operator, First Scrub, Second Time In 12/17/19 09:22:00 [...] Esteban Tejada RN 12/17/19 10:06:09 12/17/19 10:06:09 [facility] IntraOp Case Attendance Audit 12/17/19 10:06:09 Geological E Logger: [id number] Modifier: [id number] 1 <*> Procedure Knee Arthroscopy 2 <*> Procedure Knee Arthroscopy 3 <*> Procedure Knee Arthroscopy 4 <*> Procedure Knee Arthroscopy 5 <*> Procedure Knee Arthroscopy 6 <*> Procedure Knee Arthroscopy 7 <*> Procedure Knee Arthroscopy 8 <*> Procedure Knee Arthroscopy 12/17/19 10:05:50 Geological E Logger: [id number] Modifier: [id number] 1 <+> Time Out 1 <*> Procedure [...] 8 <*> Procedure Knee Arthroscopy 12/17/19 09:38:00 Geological E Logger: [id number] Modifier: [id number] 1 <*> Procedure Knee Arthroscopy 2 <*> [...] 8 <*> Procedure Knee Arthroscopy 12/17/19 09:37:09 Geological E Logger: [id number] Modifier: [id number] 1 <+> Time In 1 <*> Procedure [...] [facility] IntraOp Case Times Audit 12/17/19 10:04:48 Geological E Logger: [id number] Modifier: [id number] <+> 1 Out Room Time <+> 1 Stop Time <+> 1 Stop Time 12/17/19 09:37:54 Geological E Logger: [id number] Modifier: [id number] <+> 1 Start Time SJE IntraOp Communication [...] [facility] IntraOp Counts Verification Audit 12/17/19 10:06:10 Geological E Logger: [id number] Modifier: [id number] 1 <*> Procedure Knee Arthroscopy, Knee Arthroscopy 12/17/19 10:05:53 Geological E Logger: [id number] Modifier: [id number] 1 <*> Procedure Knee Arthroscopy SJE IntraOp [...] SJE IntraOp Counts Final Audit 12/17/19 10:06:11 Geological E Logger: [id number] Modifier: [id number] 1 <*> Procedure Knee Arthroscopy, Knee Arthroscopy 12/17/19 10:05:55 Geological E Logger: [id number] Modifier: [id number] 1 <*> Procedure Knee Arthroscopy SJE IntraOp [...] RN 12/17/19 09:44:01 SJE IntraOp General Case Operations Engineer 1 Case Information OR OR 10 SJE [...] 0.5% 30ml vial Xylocaine 0.5% w/ - [id number] epinephrine 1:200,000 50ml vial - [id number] Combo Med List 1 - Combo Med [...] Comments: ZOYA LEG OSBORN ON RIGHT LEG; Kozio LEG OSBORN ON LEFT SIDE SJE IntraOp Patient Positioning Audit 12/17/19 10:06:11 Geological E Logger: [id number] Modifier: [id number] 1 <*> Procedure Knee Arthroscopy, Knee Arthroscopy 12/17/19 10:05:54 Geological E Logger: [id number] Modifier: [id number] 1 <*> Procedure 1 <*> Procedure Knee [...] SJE IntraOp Sign In Audit 12/17/19 09:52:16 Geological E Logger: [id number] Modifier: [id number] <+> 1 Medication Checks Completed <+> 1 [...] SJE IntraOp Skin Prep Audit 12/17/19 10:06:11 Geological E Logger: [id number] Modifier: [id number] 1 <*> Procedure Knee Arthroscopy, Knee Arthroscopy 12/17/19 10:05:55 Geological E Logger: [id number] Modifier: [id number] 1 <*> Procedure Knee Arthroscopy SJE IntraOp [...] SJE IntraOp Surgical Procedures Audit 12/17/19 10:06:46 Geological E Logger: [id number] Modifier: [id number] 1 <*> Procedure Knee Arthroscopy 1 <*> [...] Padded Under Cuff Applied By Mary Valencia, Fine Dining Server Removed By Mary Valencia, Fine Dining Server Times Start Time 12/17/19 09:36:00 Stop Time 12/17/19 09:54:00 Last Modified By: Esteban Abbasi RN 12/17/19 10:08:40 Case Comments <None> Finalized By: Flor Tapia RN Document Signatures Signed By: Esteban Abbasi RN 12/17/19 10:09 Flor Tapia RN 12/17/19 11:02 Unfinalized History Date/Time Username Reason for Unfinalizing Freetext Reason for Unfinalizing 12/17/19 10:51 [id number] Correct Documentation documented in this encounter Plan of Treatment Upcoming Encounters Date Type Department Care Team (Late st Contact Info) Description 02/11/2025 10:00 AM EDT Office Visit [facility] Orthopedics - [address] [place] [address] Nick Rasmussen PA-C [address] [place] [address] 08/19/2025 9:30 AM EST Appointment [facility] 160 [facility] [address] [place] [address] documented as of this encounter Visit Diagnoses Not on filedocumented in this encounter Care Teams Rescue Worker Relationship Specialty Start Date End Date [facility] At [address] [address] PCP - General 09/19/22 10/27/23 Lena Aguilera, [employer] HCM CONSULTANT [address] [place] [address] PCP - General Family Medicine 10/28/23 Nick Rasmussen PA-C [address] [place] [address] Orthopedic Surgery 08/07/23 Nimisha Nuñez PA-C [address] [place] [address] Physician Bone Char Kiln Operator Orthopedic Surgery 02/05/24 documented as of this encounter
--- OUTSIDE RECORDS SUMMARY | 2025-01-18 08:15 | XMS_ITS | Encounter Summary ---
Author Organization [employer] ([place], [place], [place], [place]) Address [address] [place] [address] Care Team Providers Care Head Pastry Chef Name Role Phone Krystyna Elliott [facility] Primary Care Provider Nick Rasmussen PA-C Unavailable [phone] Lena Aguilera APRN Primary Care Provider [phone] Nimisha Nuñez PA-C Unavailable [phone] Encounter Details Date Type Department Care Team (Late st Contact Info) Description 12/17/2019 Transcribed Document [address] [address] Provider, Audra Hargrove MD Social History Tobacco Use Types Packs/Day Years Used Date Smoking Tobacco: Never Assessed Comments Unknown Sex and Gender Information Value Date Recorded Sex Assigned at Not on file Legal Sex Female 6:57 PM CDT Gender Identity Not on file Sexual Orientation Not on file documented as of this encounter Miscellaneous Notes * Cerner Conversion Note - [facility] Beena ProviderMD - 12/17/2019 12:37 PM EDT [facility] [address] [place] [address] ANISA KATZISE :1965 Visit Time:12/17/2019 What to do next Your Diagnosis Unilateral primary osteoarthritis, right knee, Unilateral primary osteoarthritis, right knee Instructions From Your Care Team You have a prescription for Re[place]burg 7.5mg 1 tablet every 6 hours as needed for pain, your next dose is due after 4:30pm refer to discharge orders/orthopedic procedures form for detailed instructions. Follow-Up Appointments Follow Up with DRAGAN FLAHERTY MD-ORT When 12/30/2019 02:15 PM EDT Comments Appointment has been made Where: [address] [place] [address]- Medications What How Much When Instructions Next [...] and water are not available, use hand coke burner. ? Change your dressing as told by [...] medicines you take. General instructions ??? Take babu-spq-uwoysjn and prescription medicines only as told by [...] fried or sweet foods. ? Take an duwl-rtc-xxhfdnv or prescription medicines for constipation. ??? Do [...] 01/04/2006 Document Revised: 04/30/2018 Document Reviewed: 04/30/2018 [employer] Interactive Patient Education ?? 2020 Admittor. acetaminophen and hydrocodone (a SEET a MIN oh fen and imer drokiara KOE done) Hycet, Lorcet, Re[place]burg, Verdrocet, Vicodin, Xodol, Zamicet What is the [...] may report side effects to FDA at 6-529-HIE-9957. What other drugs will affect acetaminophen and [...] affect acetaminophen and hydrocodone, including prescription and tsoo-taa-wesoyxc medicines, vitamins, and herbal products. Not all [...] to ensure that the information provided by [employer]') is accurate, up-to-date, and complete, but no guarantee is made to that effect. Drug information contained herein may be time sensitive. [employer] information has been compiled for use by healthcare practitioners and consumers in the [place] and therefore [employer] does not warrant that uses outside of the [place] are appropriate, unless specifically indicated otherwise. [employer]'s drug information does not endorse drugs, diagnose patients or recommend therapy. [employer] drug information is an informational resource designed [...] effective or appropriate for any given patient. [employer] does not assume any responsibility for any aspect of healthcare administered with the aid of information [employer] provides. The information contained herein is not intended to cover all possible uses, directions, precautions, warnings, drug interactions, allergic reactions, or adverse effects. If you have questions about the drugs you are taking, check with your doctor, nurse or pharmacist. Copyright 9188-3713 [employer] Version: 16.. Revision Date: 07/22/2019. acetaminophen and hydrocodone (a SEET a MIN oh fen and imer droe KOE done) Hycet, Lorcet, [place], Verdrocet, Vicodin, Xodol, Zamicet What is the [...] may report side effects to FDA at 4-671-DTX-2976. What other drugs will affect acetaminophen and [...] affect acetaminophen and hydrocodone, including prescription and uukq-nsc-hjbqtdc medicines, vitamins, and herbal products. Not all [...] to ensure that the information provided by [employer]') is accurate, up-to-date, and complete, but no guarantee is made to that effect. Drug information contained herein may be time sensitive. [employer] information has been compiled for use by healthcare practitioners and consumers in the [place] and therefore [employer] does not warrant that uses outside of the [place] are appropriate, unless specifically indicated otherwise. [employer] drug information does not endorse drugs, diagnose patients or recommend therapy. [employer] drug information is an informational resource designed [...] effective or appropriate for any given patient. [employer] does not assume any responsibility for any aspect of healthcare administered with the aid of information [employer] provides. The information contained herein is not intended to cover all possible uses, directions, precautions, warnings, drug interactions, allergic reactions, or adverse effects. If you have questions about the drugs you are taking, check with your doctor, nurse or pharmacist. Copyright 9739-3065 [employer] Version: 16.01. Revision Date: 07/22/2019. Emergency Awareness [...] Assistance with quitting is available by contacting 8-507-ADLH-NOW. This is a free resource providing counseling, [...] range between ( 1.0 and 7.0 ) [place] #: 0.41 K/uL -- Normal range between ( 0.24 and 0.82 ) [place] #: 0.25 K/uL -- Normal range between ( 0.04 and 0.54 ) [place] %: 7.5 % -- Normal range between [...] was given the opportunity to ask questions. Patient/Forest Landscape Ecology Professor Name: Patient/Forest Landscape Ecology Professor Signature: Relationship to Patient: Clinician/Hospital Forest Landscape Ecology Professor Signature: Date: documented in this encounter Plan of Treatment Upcoming Encounters Date Type Department Care Team (Late st Contact Info) Description 02/11/2025 10:00 AM EDT Office Visit [facility] Orthopedics - [address] [place] [id number] Nick Rasmussen PA-C [address] [place] [address] 08/19/2025 9:30 AM EST Appointment [facility] [address] [place] [address] documented as of this encounter Visit Diagnoses Not on filedocumented in this encounter Care Teams Head Pastry Chef Relationship Specialty Start Date End Date [facility] [place] [address] PCP - General 09/19/22 10/27/23 Lena Aguilera APRN [address] [place] [address] PCP - General Family Medicine 10/28/23 Nick Rasmussen PA-C [address] [place] [address] Orthopedic Surgery 08/07/23 Nimisha Nuñez PA-C [address] [place] [address] Physician Tuckpointer Cleaner [place] Orthopedic Surgery 02/05/24 documented as of this encounter
--- OUTSIDE RECORDS SUMMARY | 2025-01-18 08:15 | XMS_ITS | Encounter Summary ---
Author Organization [employer] ([place], [place], [place], [place]) Address [address] [place] [address] Care Team Providers Care Vehicle Painter Name Role Phone Krystyna Elliott [facility] Primary Care Provider Nick Rasmussen PA-C Unavailable [phone] Lena Aguilera APRN Primary Care Provider [phone] Nimisha Nuñez PA-C Unavailable [phone] Encounter Details Date Type Department Care Team (Late st Contact Info) Description 12/17/2019 Transcribed Document [facility] [address] [place] [address] Provider, Audra Hargrove MD Social History Tobacco Use Types Packs/Day Years Used Date Smoking Tobacco: Never Assessed Comments Unknown Sex and Gender Information Value Date Recorded Sex Assigned at Not on file Legal Sex Female 6:57 PM CDT Gender Identity Not on file Sexual Orientation Not on file documented as of this encounter Miscellaneous Notes * Cerner Conversion Note - [facility] Beena Ogden MD - 12/17/2019 10:59 AM EDT DATE OF PROCEDURE: 12/17/2019 SURGEON: Rell Del Cid MD PREOPERATIVE DIAGNOSIS: Right knee medial meniscus 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 POSTOPERATIVE DIAGNOSIS: Right knee medial meniscus 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 PROCEDURE PERFORMED: Right knee diagnostic arthroscopy with partial medial meniscectomy. BROOMCORN SORTER: Mary Valencia CFA ANESTHESIA: General. ESTIMATED BLOOD [...] tolerated the procedure well without any complications. /[id number] Rell Sylvain Del Cid MD ASC/AQ / ASC / MODL /[id number] documented in this encounter Plan of Treatment Upcoming Encounters Date Type Department Care Team (Late st Contact Info) Description 02/11/2025 10:00 AM EDT Office Visit [facility] Orthopedics - [address] [place] [address] Nick Rasmussen PA-C [address] [place] [address] 08/19/2025 9:30 AM EST Appointment [facility] [address] [facility] [address] [place] [address] documented as of this encounter Visit Diagnoses Not on filedocumented in this encounter Care Teams Vehicle Painter Relationship Specialty Start Date End Date [facility] [address] [place] [address] PCP - General 09/19/22 10/27/23 Lena Aguilera APRN [address] [place] [address] PCP - General Family Medicine 10/28/23 Nick Rasmussen PA-C [address] [place], [place] [id number] Orthopedic Surgery 08/07/23 Nimisha Nuñez PA-C [address] [place] [address] Physician Washerette Machine Operator Orthopedic Surgery 02/05/24 documented as of this encounter
--- OUTSIDE RECORDS SUMMARY | 2025-01-18 08:15 | XMS_ITS | Encounter Summary ---
Author Organization [employer] ([place], [place], [place], [place]) Address [address] [place] [address] Care Team Providers Care Van Cdl Driver Name Role Phone Krystyna Elliott [facility] Primary Care Provider Nick Rasmussen PA-C Unavailable [phone] Lena Aguilera APRN Primary Care Provider [phone] Nimisha Nuñez PA-C Unavailable [phone] Encounter Details Date Type Department Care Team (Late st Contact Info) Description 12/03/2019 Transcribed Document [facility] [address] [place] [address] Provider, Audra Hargrove MD Social History Tobacco Use Types Packs/Day Years Used Date Smoking Tobacco: Never Assessed Comments Unknown Sex and Gender Information Value Date Recorded Sex Assigned at Not on file Legal Sex Female 6:57 PM CDT Gender Identity Not on file Sexual Orientation Not on file documented as of this encounter Miscellaneous Notes * Cerner Conversion Note - [facility] Beena ProviderMD - 12/03/2019 9:36 AM [...] : Stated Height Entry Format : [place] Height, Feet : 5 ft(Converted to: 152 cm, 60 Inch) Height, Inches : 3 Inch(Converted to: 0 ft 3 Inch, 7.62 cm) Clinical Height : 160.02 cm Weight Source : Standing scale Weight Entry Format : [place] Clinical Dosing Weight : 100.91 kg Weight, Pounds : 222 lb Body Surface Area (BSA) : 2.02 m2 Body Mass Index : 39.4 kg/m2 ([place]) [place] Body Weight : 52 kg ROSALINE MCKEON [...] ROSALINE MCKEON RN - 12/03/2019 8:36 EDT [place] Suicide Severity Rating Scale (C-SSRS) CSSRS Past [...] #2 Relationship : - Primary Language : [place] Communication Barrier : None ROSALINE MCKEON RN [...] Description 02/11/2025 10:00 AM EDT Office Visit [facility] Orthopedics - [address] [place] [address] Nick Rasmussen PA-C [address] [place] [address] 08/19/2025 9:30 AM EST Appointment [facility] [address] [facility] [address] [place] [address] documented as of this encounter Visit Diagnoses Not on filedocumented in this encounter Care Teams Van Cdl Driver Relationship Specialty Start Date End Date Krystyna Elliott [place] [id number] PCP - General 09/19/22 10/27/23 Lena Aguilera, KALIN [address] [place] [address] PCP - General Family Medicine 10/28/23 Nick Rasmussen PA-C [address] [place] [address] Orthopedic Surgery 08/07/23 Nimisha Nuñez PA-C [address] [place] [address] Physician Tax Audit Manager Orthopedic Surgery 02/05/24 documented as of this encounter
--- OUTSIDE RECORDS SUMMARY | 2025-01-18 08:15 | XMS_ITS | Referral Summary ---
Author Organization [employer] ([place], [place], [place], [place]) Address [address] [place] [address] Care Team Providers Care Commissioner Of Relocation Services Name Role Phone Nick Rasmussen PA-C Unavailable [phone] Lena Aguilera APRN Primary Care Provider Nimisha Nuñez PA-C Unavailable [phone] Encounters Date Type Department Care Team Description 12/23/2024 2:15 PM EDT Office Visit [facility] Orthopedics - [address] [place] [address] Nick Rasmussen PA-C Left carpal tunnel syndrome (Primary Dx) 12/18/2024 Orders Only [facility] Neurology - [facility] [address] [place] [address] ProviderBeena MD 12/18/2024 Travel 12/18/2024 9:00 AM EDT Procedure Visit [facility] Neurology - [facility] [address] [place] [address] Nick Rasmussen PA-C Everman, Nicole A, MD Numbness and tingling of both upper extremities 12/05/2024 Travel 12/05/2024 10:57 AM EDT - 12/05/2024 2:53 PM EDT Emergency [facility] Emergency Department [address] [place] [address] Mayank Patrick MD Acute cystitis with hematuria (Primary Dx); Chest pain, unspecified type Discharge Disposition: Home or Self Care 11/19/2024 9:40 AM EDT - 11/19/2024 11:59 PM EDT Hospital Encounter [facility] Diagnostic Imaging - [address] [place] [address] Nick Rasmussen PA-C Bilateral foot pain Discharge Disposition: Home or Self Care 11/19/2024 9:40 AM EDT - 11/19/2024 11:59 PM EDT Hospital Encounter [facility] Imaging [address] [place] [address] Nick Rasmussen PA-C Bilateral hand pain Discharge Disposition: Home or Self Care 11/19/2024 9:30 AM EDT Office Visit [facility] [address] [address] Nick Rasmussen PA-C Numbness and tingling of both upper extremities (Primary Dx); Bilateral hand pain; Bilateral foot pain; Calcaneal spur of left foot; Primary osteoarthritis of both hands; De Quervain's tenosynovitis, left; Multiple joint pain 11/12/2024 8:30 AM EDT Office Visit [facility] [address] [address] Nick Rasmussen PA-C Primary osteoarthritis of right knee (Primary Dx); Primary osteoarthritis of left knee 10/30/2024 Outside Orders [place] [address] Physical Therapy [facility] [address] [place] [address] Lena Aguilera APRN Urinary incontinence (Primary Dx) from Last 3 Months Allergies Active Allergy [...] mouth 2 (two) times daily. 07/25/2023 Active Hospital, Clinic, or Other Facility Administered Medication [...] Date Vijay rded Speak language other than Libyan at home Not on file 07/19/2023 Want [...] [facility] Orthopedics - [address] [place] [address] Nick Rasmussen PA-C [address] [place] [address] 08/19/2025 9:30 AM EST Appointment [facility] [place] [facility] [address] [facility] [address] [place] [address] Procedures Procedure Name Priority Date/Time [...] - 58.8 pg/mL 12/05/2024 1:45 PM EDT [facility] Comment: Troponin Result (pg/mL) *Interpretation [...] NP LAB BLOOD ORDERABLES Final Res ult [facility] [address] [place] [address] * (ABNORMAL) Urinalysis, Reflex Microscopic and Culture If Indicated (12/05/2024 12:45 PM EDT) Pathologist [facility] Emergency Department Color, UA Yellow 12/05/2024 2:20 PM EDT [facility] Clarity, UA Turbid(A) Clear 12/05/2024 2:20 PM EDT [facility] Specific [place], UA 1.024 1.005 - 1.030 12/05/2024 2:20 PM EDT [facility] pH, UA 7.0 6.0 - 8.0 12/05/2024 2:20 PM EDT [facility] Leukocytes, UA 500 Evangelist/uL(A) Negative 12/05/2024 2:20 PM EDT [facility] Nitrite, UA Negative Negative 12/05/2024 2:20 PM EDT [facility] Protein, UA Trace(A) Negative 12/05/2024 2:20 PM EDT [facility] Glucose, UA Normal Normal 12/05/2024 2:20 PM EDT [facility] Ketones, UA Negative Negative 12/05/2024 2:20 PM EDT [facility] Bilirubin, UA Negative Negative 12/05/2024 2:20 PM EDT [facility] Blood, UA Negative Negative 12/05/2024 2:20 PM EDT [facility] Urobilinogen, UA Normal Normal 12/05/2024 2:20 PM EDT [facility] Specimen Source Urine, Clean Catch 12/05/2024 2:20 PM EDT [facility] Urine URINE SPECIMEN COLLECTION, CLEAN CATCH / Unknown 12/05/2024 12:45 PM EDT 12/05/2024 2:07 PM EDT Yamel Hurt NP URINE ORDERABLES Final Result [facility] [address] [place] [address], [facility] [phone] * (ABNORMAL) Urinalysis Microscopic Only (12/05/2024 12:45 PM EDT) WBC, UA 51-100(A) None Seen /HPF 12/05/2024 2:20 PM EDT [facility] RBC, UA 6-10(A) None Seen /HPF 12/05/2024 2:20 PM EDT [facility] Bacteria, UA 2+(A) Trace, None Seen 12/05/2024 2:20 PM EDT [facility] Mucus 1+(A) None Seen 12/05/2024 2:20 PM EDT [facility] SQUAMOUS EPITHELIAL 3-5(A) None Seen /HPF 12/05/2024 2:20 PM EDT [facility] TRANSITIONAL EPITHELIAL CELLS 0-2(A) None Seen /HPF 12/05/2024 2:20 PM EDT [facility] Non Squamous Epithelial Cells Present Absent 12/05/2024 2:20 PM EDT [facility] Urine URINE SPECIMEN COLLECTION, CLEAN CATCH / Unknown 12/05/2024 12:45 PM EDT 12/05/2024 2:07 PM EDT us Yamel Hurt NP URINE ORDERABLES Final Result [facility] [address] [place] [address], [facility] [phone] * Urine Culture (12/05/2024 12:45 PM EDT) Result Recollect Specimen - 3 or more organisms suggests contamination 12/07/2024 8:55 AM EDT [facility] Urine URINE SPECIMEN COLLECTION, CLEAN CATCH / Unknown 12/05/2024 12:45 PM EDT 12/05/2024 2:19 PM EDT us Yamel Hurt NP MICROBIOLOGY - GENERAL ORDERAB LES Final Result [facility] [address] [place] [address], [facility] [phone] * XR chest 1 view portable / [...] by Agnes Verdin PA-C. us Yamel Hurt TEMPORARY HELP AGENCY REFERRAL CLERK IMG DIAGNOSTIC IMAGING ORDERAB LES Final Result * (ABNORMAL) CBC with automated diff (12/05/2024 11:30 AM EDT) WBC 5.8 3.9 - 10.0 K/ L 12/05/2024 11:34 AM EDT [facility] RBC 4.85 3.93 - 6.08 M/ L 12/05/2024 11:34 AM EDT [facility] Hemoglobin 13.8 11.2 - 15.7 GM/DL 12/05/2024 11:34 AM EDT [facility] Hematocrit 41.5 34.1 - 44.9 % 12/05/2024 11:34 AM EDT [facility] MCV 86 79 - 95 fL 12/05/2024 11:34 AM EDT [facility] MCH 28.5 25.6 - 32.2 pg 12/05/2024 11:34 AM EDT [facility] MCHC 33.3 32.2 - 36.5 GM/DL 12/05/2024 11:34 AM EDT [facility] RDW 13.3 11.6 - 14.4 % 12/05/2024 11:34 AM EDT [facility] Platelets 195 163 - 369 K/CU MM 12/05/2024 11:34 AM EDT [facility] MPV 9.6 9.4 - 12.4 fL 12/05/2024 11:34 AM EDT [facility] % Neutros 70 34 - 71 % 12/05/2024 11:34 AM EDT [facility] % Lymphs 16(L) 19 - 53 % 12/05/2024 11:34 AM EDT [facility] % Monos 9 4 - 13 % 12/05/2024 11:34 AM EDT [facility] % Eos 5 1 - 7 % 12/05/2024 11:34 AM EDT [facility] % Baso 1 0 - 1 % 12/05/2024 11:34 AM EDT [facility] # Neutros 4.02 1.56 - 6.13 K/ L 12/05/2024 11:34 AM EDT [facility] # Lymphs 0.90(L) 1.18 - 3.74 K/ L 12/05/2024 11:34 AM EDT [facility] # Monos 0.52 0.24 - 0.82 K/ L 12/05/2024 11:34 AM EDT [facility] # Eos 0.27 0.04 - 0.54 K/ L 12/05/2024 11:34 AM EDT [facility] # Baso 0.05 0.01 - 0.08 K/ L 12/05/2024 11:34 AM EDT [facility] Immature Granulocytes-Re lative 0.30 0.00 - 0.60 % 12/05/2024 11:34 AM EDT [facility] # IG 0.02 0.00 - 0.05 K/uL 12/05/2024 11:34 AM EDT [facility] Blood Venipuncture / Unknown 12/05/2024 11:30 AM EDT 12/05/2024 11:30 AM EDT Narrative [facility] - 12/05/2024 11:34 AM EDT [...] NP LAB BLOOD ORDERABLES Final Res ult [facility] [address] [phone] * aPTT (12/05/2024 11:30 AM EDT) aPTT 25.9 22.0 - 32.0 seconds 12/05/2024 11:48 AM EDT [facility] Blood Venipuncture / Unknown 12/05/2024 11:30 AM EDT 12/05/2024 11:30 AM EDT [facility] LAB BLOOD ORDERABLES Final Res ult Performing Organization Address [facility] Co de Phone Number [facility] [address] [phone] * Prothrombin time/INR (12/05/2024 11:30 AM EDT) Protime 10.4 9.0 - 12.0 seconds 12/05/2024 11:48 AM EDT [facility] INR 0.95 0.80 - 1.10 12/05/2024 11:48 AM EDT [facility] Comment: Recommended therapeutic ranges using International Normalized Ratio (INR) are: INR RANGE 2.0 - 3.0 Routine oral anticoagulant therapy 2.5 - 3.5 Oral anticoagulant therapy for patients with thromboembolic events on standard doses of Coumadin and those with mechanical heart valves. Blood Venipuncture / Unknown 12/05/2024 11:30 AM EDT 12/05/2024 11:30 AM EDT [facility] LAB BLOOD ORDERABLES Final Res ult Performing Organization Address [facility] Co de Phone Number [facility] [address] [phone] * (ABNORMAL) Comprehensive metabolic panel (12/05/2024 11:30 AM EDT) Sodium 138 136 - 146 meq/L 12/05/2024 11:55 AM EDT [facility] Potassium 3.9 3.5 - 5.1 meq/L 12/05/2024 11:55 AM EDT [facility] Chloride 106 102 - 112 meq/L 12/05/2024 11:55 AM EDT [facility] CO2 26 21 - 32 meq/L 12/05/2024 11:55 AM EDT [facility] Calcium 9.6 8.5 - 10.1 mg/dL 12/05/2024 11:55 AM EDT [facility] Glucose 109(H) 74 - 106 mg/dL 12/05/2024 11:55 AM [facility] BUN 24(H) 7 - 22 mg/dL 12/05/2024 11:55 AM [facility] Creatinine 1.18(H) 0.55 - 1.02 mg/dL 12/05/2024 11:55 AM [facility] BUN/Creatinine 20 8 - 20 12/05/2024 11:55 AM [facility] Albumin 3.9 3.4 - 5.0 g/dL 12/05/2024 11:55 AM [facility] Alkaline Phosphatase 97 27 - 136 U/L 12/05/2024 11:55 AM [facility] ALT 32 12 - 78 U/L 12/05/2024 11:55 AM [facility] AST 24 5 - 37 U/L 12/05/2024 11:55 AM [facility] Total Bilirubin 0.5 0.2 - 1.3 mg/dL 12/05/2024 11:55 AM [facility] Protein, Total 7.6 6.4 - 8.2 gm/dL 12/05/2024 11:55 AM [facility] Anion Gap 10 9 - 20 12/05/2024 11:55 AM [facility] A/G Ratio 1.1 1.1 - 2.5 12/05/2024 11:55 AM [facility] Globulin 3.7 1.5 - 4.5 g/dL 12/05/2024 11:55 AM [facility] Osmolality Calc 280.3 mOsm/kg 11:55 AM [facility] eGFR (mL/min/1.73m2) 53(L) >=60 mL/min/1.7 3m2 12/05/2024 11:55 AM [facility] Comment:ESTIMATED GFR IS NOT ACCURATE CREATININE CLEARANCE IN PREDICTING GLOMERULAR FILTRATION RATE. ESTIMATED GFR IS NOT APPLICABLE FOR DIALYSIS PATIENTS. Blood Venipuncture / Unknown 12/05/2024 11:30 AM EDT 12/05/2024 11:30 AM EDT Yamel Hurt NP LAB BLOOD ORDERABLES Final Res ult Performing Organization Address City/[facility] Co de Phone Number [facility] [address] [phone] * ECG 12 lead (12/05/2024 11:03 AM EDT) SYSTOLIC BLOOD PRESSURE (MCT) 127 mmHg GE MUSE DIASTOLIC BLOOD PRESSURE (MCT) 77 mmHg GE MUSE VENTRICULAR RATE EKG/MIN 73 BPM GE MUSE ATRIAL RATE (MCT) 73 BPM GE MUSE [place] Interval 142 ms GE MUSE QRS-INTERVAL (MSEC) 66 ms GE MUSE QT Interval 394 ms GE MUSE QTC Interval 434 ms GE MUSE P [place] 38 degrees GE MUSE R AXIS (MCT) 67 degrees GE MUSE T Wave [place] 55 degrees GE MUSE [place] Diagnosis Normal sinus rhythm Low voltage QRS Borderline ECG No previous ECGs available Confirmed by Bhumika URBANO SUZANNE ([id number]) on 12/09/2024 10:52:48 AM GE MUSE 12/05/2024 11:0 3 AM EDT 12/09/2024 10:52 AM EDT Yamel Hurt TEMPORARY HELP AGENCY REFERRAL CLERK ECG ORDERABLES Final Result Performing Organization Address [facility] de Phone Number [facility] [place] * X-ray hand bilateral PA lateral and [...] mineralization. There are no erosions. Procedure Note Antnoi Yarbrough MD - 11/19/2024 LEFT HAND HISTORY: [...] recommended imaging studies/procedures. At our facility, a [place] marker [...] of breast cancer COMPARISON STUDY: [facility] 08/13/2024 FINDINGS: Craniocaudal and mediolateral oblique images [...] Most Recently Relevant to Health Maintenance Insurance J[place]TE SANDERS [id number] [facility] Care Teams Commissioner Of Relocation Services Relationship Specialty Start Date End Date Lena Aguilera, KALIN [address] [address] PCP - General Family Medicine 10/28/23 Nick Rasmussen PA-C [address] [place] [address] Orthopedic Surgery 08/07/23 Nimisha Nuñez PA-C [address] [place] [address] Physician Director Records Management Orthopedic Surgery 02/05/24
--- OUTSIDE RECORDS SUMMARY | 2025-01-18 08:15 | XMS_ITS | Encounter Summary ---
Author Organization [email or web address] ([place], [place], [place], [place]) Address [address] [place] [address] Care Team Providers Care Senior Loan Officer Name Role Phone Krystyna Elliott [facility] Primary Care Provider Nick Rasmussen PA-C Unavailable [phone] Lena Aguilera APRN Primary Care Provider [phone] Nimisha Nuñez PA-C Unavailable [phone] Encounter Details Date Type Department Care Team (Late st Contact Info) Description 12/17/2019 Transcribed Document [address] [address] Provider, Audra Hargrove MD Social History Tobacco Use Types Packs/Day Years Used Date Smoking Tobacco: Never Assessed Comments Unknown Sex and Gender Information Value Date Recorded Sex Assigned at Not on file Legal Sex Female 6:57 PM CDT Gender Identity Not on file Sexual Orientation Not on file documented as of this encounter Miscellaneous Notes * Cerner Conversion Note - [facility] Beena Ogden MD - 12/17/2019 11:28 AM [...] and water are not available, use hand machine lay out worker. ? Change your dressing as told [...] medicines you take. General instructions ??? Take vvaw-auy-meqcrce and prescription medicines only as told by [...] fried or sweet foods. ? Take an baew-igy-uthcmpz or prescription medicines for constipation. ??? Do [...] 01/04/2006 Document Revised: 04/30/2018 Document Reviewed: 04/30/2018 [employer] Patient Education ? 2019 [employer]. documented in this encounter Plan of Treatment Upcoming Encounters Date Type Department Care Team (Late st Contact Info) Description 02/11/2025 10:00 AM EDT Office Visit [facility] Orthopedics - [address] [place] [address] Nick Rasmussen PA-C [address] [place] [address] 08/19/2025 9:30 AM EST Appointment [facility] [address] [facility] [address] [place] [address] documented as of this encounter Visit Diagnoses Not on filedocumented in this encounter Care Teams Senior Loan Officer Relationship Specialty Start Date End Date [place] [address] PCP - General 09/19/22 10/27/23 Lena Aguilera APRN [address] [place] [phone] PCP - General Family Medicine 10/28/23 Nick Rasmussen PA-C [address] [place] [address] Orthopedic Surgery 08/07/23 Nimisha Nuñez PA-C [address] [place] [address] Physician Supervisor Mail Carriers Orthopedic Surgery 02/05/24 documented as of this encounter
--- OUTSIDE RECORDS SUMMARY | 2025-01-18 08:15 | XMS_ITS | Encounter Summary ---
Author Organization [employer] ([place], [place], [place], [place]) Address [address] [place] [address] Care Team Providers Care Used Car Sales Supervisor Name Role Phone Krystyna Elliott [facility] Primary Care Provider Nick Rasmussen PA-C Unavailable [phone] Lena Aguilera APRN Primary Care Provider [phone] Nimisha Nuñez PA-C Unavailable [phone] Encounter Details Date Type Department Care Team (Late st Contact Info) Description 12/17/2019 Transcribed Document [facility] [address] [place] [address] Provider, Audra Hargrove MD Social History Tobacco Use Types Packs/Day Years Used Date Smoking Tobacco: Never Assessed Comments Unknown Sex and Gender Information Value Date Recorded Sex Assigned at Not on file Legal Sex Female 6:57 PM CDT Gender Identity Not on file Sexual Orientation Not on file documented as of this encounter Miscellaneous Notes * Cerner Conversion Note - [facility] Beena ProviderMD - 12/17/2019 10:36 AM EDT [facility] Main OR PostOp Summary Primary Physician: DRAGAN FLAHERTY MD-ORT Finalized Date/Time: 12/17/19 11:48:29 Pt. Name: ANISA KATZISE /Sex: 1965 Female Med Rec #: [id number] Physician: DRAGAN FLAHERTY MD-ORT Financial #: [id number] Pt. Type: O Room/Bed: [facility]/4 Admit/Disch: 12/17/19 04:47:00 - Institution: [facility] Main OR PostOp Case Times Entry 1 In PACU II 12/17/19 10:40:00 Ready for PACU II 12/17/19 11:48:00 Discharge Discharge from PACU 12/17/19 11:48:00 II Last Modified By: Erin Orta RN 12/17/19 11:48:22 [facility] OR PostOp Case Times Audit 12/17/19 11:48:22 Automatic Pinsetter Mechanic: SXPOWERS Modifier: HELFEP 1 <+> Ready for PACU II Discharge 1 <*> In PACU II 12/17/19 10:00:00 1 <+> Discharge from PACU II Finalized By: Erin Orta RN Document Signatures Signed By: Erin Orta RN 12/17/19 11:48 documented in this encounter Plan of Treatment Upcoming Encounters Date Type Department Care Team (Late st Contact Info) Description 02/11/2025 10:00 AM EDT Office Visit [facility] Orthopedics - [address] [place] [address] Nick Rasmussen PA-C [address] [place] [address] 08/19/2025 9:30 AM EST Appointment [facility] Breast [facility] [address] [place] [address] documented as of this encounter Visit Diagnoses Not on filedocumented in this encounter Care Teams Used Car Sales Supervisor Relationship Specialty Start Date End Date Krystyna Elliott [facility] [address] [address] PCP - General 09/19/22 10/27/23 Lena Aguilera, KALIN [address] [place] [address] PCP - General Family Medicine 10/28/23 Nick Rasmussen PA-C [address] [place], [place] [id number] Orthopedic Surgery 08/07/23 Nimisha Nuñez PA-C [address] [place], [place] [id number] Physician Mica Laminating Machine Feeder Orthopedic Surgery 02/05/24 documented as of this encounter
--- OUTSIDE RECORDS SUMMARY | 2025-01-18 08:15 | XMS_ITS | Encounter Summary ---
Author Organization [employer] ([place], [place], [place], [place]) Address [address] [place] [address] Care Team Providers Care Front Office Developer Name Role Phone Nick Rasmussen PA-C Unavailable [phone] Lena Aguilera APRN Primary Care Provider [phone] Nimisha Nuñez PA-C Unavailable [phone] Reason for Referral * Mammography (Routine) - New Request Specialty Diagnoses / Procedures Referred By Kai robins Referred To Contact Radiology Diagnoses Screening mammogram for breast cancer Procedures MM digital mammo screen with phyllis bilateral Lena Aguilera APRN [address] [place] [address] Phone: tel: fax: [facility] Breast Imaging [address] [place] [address] Phone: tel: fax: Referral ID Status Reason Start Date Expiration Date V isits Requested Visits Authorized [id number] New Request 08/12/2024 08/12/2025 1 1 Encounter Details Date Type Department Care Team (Late st Contact Info) Description 08/12/2024 Outside Orders [facility] Central Scheduling [address] [place] [address] Lena Aguilera APRN [address] [place] [address] Screening mammogram for breast cancer [...] Date Vijay rded Speak language other than Vietnamese at home Not on file 07/19/2023 Want [...] Description 02/11/2025 10:00 AM EDT Office Visit [facility] Orthopedics - [address] [place] [address] Nick Rasmussen PA-C [address] [place] [address] 08/19/2025 9:30 AM EST Appointment [facility] Breast Care [address] [facility] [address] [place] [address] documented as of this encounter [...] the next mammogram. At our facility, a [place] marker is positioned over a visible skin [...] cancer documented in this encounter Care Teams Front Office Developer Relationship Specialty Start Date End Date Lena Aguilera APRN [address] [address] [address] PCP - General Family Medicine 10/28/23 Nick Rasmussen PA-C [address] [place] [address] Orthopedic Surgery 08/07/23 Nimisha Nuñez PA-C [address] [place], [place] [phone] Physician Perfume Maker Orthopedic Surgery 02/05/24 documented as of this encounter
--- OUTSIDE RECORDS SUMMARY | 2025-01-18 08:15 | XMS_ITS | Encounter Summary ---
Author Organization [employer] ([place], [place], [place], [place]) Address [address] [place] [address] Care Team Providers Care Postal Worker Name Role Phone Krystyna Elliott [facility] Primary Care Provider Nick Rasmussen PA-C Unavailable [phone] Lena Aguilera APRN Primary Care Provider [phone] Nimisha Nuñez PA-C Unavailable [phone] Encounter Details Date Type Department Care Team (Late st Contact Info) Description 12/17/2019 Transcribed Document [address] [address] Provider, Audra Hargrove MD Social History Tobacco Use Types Packs/Day Years Used Date Smoking Tobacco: Never Assessed Comments Unknown Sex and Gender Information Value Date Recorded Sex Assigned at Not on file Legal Sex Female 6:57 PM CDT Gender Identity Not on file Sexual Orientation Not on file documented as of this encounter Miscellaneous Notes * Cerner Conversion Note - [facility] Beena ProviderMD - 12/17/2019 12:22 PM EDT [facility] [address] [place] [address] ANISA KATZISE :1965 Visit Time:12/17/2019 What to do next Your Diagnosis Unilateral primary osteoarthritis, right knee, Unilateral primary osteoarthritis, right knee Instructions From Your Care Team You have a prescription for Veteran 7.5mg 1 tablet every 6 hours as needed for pain, your next dose is due after 4:30pm refer to discharge orders/orthopedic procedures form for detailed instructions. Follow-Up Appointments Follow Up with DRAGAN FLAHERTY MD-ORT When 12/30/2019 02:15 PM EDT Comments Appointment has been made Where: [place] [address]- Medications What How Much When Instructions Next [...] and water are not available, use hand cad application support specialist. ? Change your dressing as told by [...] medicines you take. General instructions ??? Take ibnf-ahg-xhbthzl and prescription medicines only as told by [...] fried or sweet foods. ? Take an ehde-ccy-ziudhmk or prescription medicines for constipation. ??? Do [...] 01/04/2006 Document Revised: 04/30/2018 Document Reviewed: 04/30/2018 [employer] Patient Education ?? 2020 [employer]. acetaminophen and hydrocodone (a SEET a MIN oh fen and imer drokiara KOE done) Hycet, Lorcet, Veteran, Verdrocet, Vicodin, Xodol, Zamicet What is the [...] may report side effects to FDA at 3-885-LIU-8248. What other drugs will affect acetaminophen and [...] affect acetaminophen and hydrocodone, including prescription and fwar-nxt-txypooc medicines, vitamins, and herbal products. Not all [...] to ensure that the information provided by [employer]. ('Multum') is accurate, up-to-date, and complete, but no guarantee is made to that effect. Drug information contained herein may be time sensitive. [employer] information has been compiled for use by healthcare practitioners and consumers in the [place] and therefore [employer] does not warrant that uses outside of the [place] are appropriate, unless specifically indicated otherwise. [employer]'s drug information does not endorse drugs, diagnose patients or recommend therapy. [employer]s drug information is an informational resource designed [...] effective or appropriate for any given patient. [employer] does not assume any responsibility for any aspect of healthcare administered with the aid of information [employer] provides. The information contained herein is not intended to cover all possible uses, directions, precautions, warnings, drug interactions, allergic reactions, or adverse effects. If you have questions about the drugs you are taking, check with your doctor, nurse or pharmacist. Copyright 5812-7281 [employer]ring[employer]. Version: 16.. Revision Date: 07/22/2019. acetaminophen and hydrocodone (a SEET a MIN oh fen and imer droe KOE done) Hycet, Lorcet, Veteran, Verdrocet, Vicodin, Xodol, Zamicet What is the [...] may report side effects to FDA at 6-133-IMB-7037. What other drugs will affect acetaminophen and [...] affect acetaminophen and hydrocodone, including prescription and pehf-mhg-gazfujl medicines, vitamins, and herbal products. Not all [...] to ensure that the information provided by [employer]. ('Multum') is accurate, up-to-date, and complete, but no guarantee is made to that effect. Drug information contained herein may be time sensitive. [employer] information has been compiled for use by healthcare practitioners and consumers in the [place] and therefore [employer] does not warrant that uses outside of the [place] are appropriate, unless specifically indicated otherwise. [employer] drug information does not endorse drugs, diagnose patients or recommend therapy. [employer] drug information is an informational resource designed [...] effective or appropriate for any given patient. [employer] does not assume any responsibility for any aspect of healthcare administered with the aid of information [employer] provides. The information contained herein is not intended to cover all possible uses, directions, precautions, warnings, drug interactions, allergic reactions, or adverse effects. If you have questions about the drugs you are taking, check with your doctor, nurse or pharmacist. Copyright 9837-5988 [employer]afring[employer].com. Version: 16.01. Revision Date: 07/22/2019. Emergency Awareness [...] Assistance with quitting is available by contacting 2-856-VTVM-NOW. This is a free resource providing counseling, [...] range between ( 1.0 and 7.0 ) [place] #: 0.41 K/uL -- Normal range between ( 0.24 and 0.82 ) [place] #: 0.25 K/uL -- Normal range between ( 0.04 and 0.54 ) [place] %: 7.5 % -- Normal range between [...] was given the opportunity to ask questions. Patient/Health Occupations Teacher Name: Patient/Health Occupations Teacher Signature: Relationship to Patient: Clinician/Hospital Health Occupations Teacher Signature: Date: documented in this encounter Plan of Treatment Upcoming Encounters Date Type Department Care Team (Late st Contact Info) Description 02/11/2025 10:00 AM EDT Office Visit [facility] Orthopedics - [address] [place] [phone] Nick Rasmussen PA-C [address] [place] [address] 08/19/2025 9:30 AM EST Appointment [facility] [address] [facility] [facility] [address] [place] [address] documented as of this encounter Visit Diagnoses Not on filedocumented in this encounter Care Teams Postal Worker Relationship Specialty Start Date End Date [facility] [address] PCP - General 09/19/22 10/27/23 Lena Aguilera APRN [address] [place] [address] PCP - General Family Medicine 10/28/23 Nick Rasmussen PA-C [address] [place] [address] Orthopedic Surgery 08/07/23 Nimisha Nuñez PA-C [address] [place] [address] Physician [employer] Orthopedic Surgery 02/05/24 documented as of this encounter
--- OUTSIDE RECORDS SUMMARY | 2025-01-18 08:15 | XMS_ITS | Clinical Summary ---
Author Organization [employer] ([place], [place], [place], [place]) Address [address] [place] [address] Care Team Providers Care Buckle Sorter Name Role Phone Nick Rasmussen PA-C Unavailable [phone] Lena Aguilera APRN Primary Care Provider [phone] Nimisha Nuñez PA-C Unavailable [phone] Allergies Active Allergy Reactions Criticality Noted Date [...] Description 12/23/2024 2:15 PM EDT Office Visit [facility] Orthopedics - [address] [place] [address] Nick Rasmussen PA-C Left carpal tunnel syndrome (Primary Dx) 12/18/2024 9:00 AM EDT Procedure Visit [facility] Neurology - [facility] [address] [place] [address] Nick Rasmussen PA-C Everman, Nicole A, MD Numbness and tingling of both upper extremities 12/18/2024 Orders Only [facility] Neurology - [facility] [address] [place] [address] ProviderBeena MD 12/18/2024 Travel 12/05/2024 10:57 AM EDT - 12/05/2024 2:53 PM EDT Emergency [facility] Emergency Department [address] [place] [address] Mayank Patrick MD Acute cystitis with hematuria (Primary Dx); Chest pain, unspecified type Discharge Disposition: Home or Self Care 12/05/2024 Travel 11/19/2024 9:40 AM EDT - 11/19/2024 11:59 PM EDT Hospital Encounter [facility] Diagnostic Imaging [address] [place] [address] Nick Rasmussen PA-C Bilateral foot pain Discharge Disposition: Home or Self Care 11/19/2024 9:40 AM EDT - 11/19/2024 11:59 PM EDT Hospital Encounter [facility] Diagnostic Imaging [address] [place] [address] Nick Rasmussen PA-C Bilateral hand pain Discharge Disposition: Home or Self Care 11/19/2024 9:30 AM EDT Office Visit [facility] Orthopedics [address] [address] Nick Rasmussen PA-C Numbness and tingling of both upper extremities (Primary Dx); Bilateral hand pain; Bilateral foot pain; Calcaneal spur of left foot; Primary osteoarthritis of both hands; De Quervain's tenosynovitis, left; Multiple joint pain 11/12/2024 8:30 AM EDT Office Visit [facility]opedic[address] [address] Nick Rasmussen PA-C Primary osteoarthritis of right knee (Primary Dx); Primary osteoarthritis of left knee 10/30/2024 Outside Orders [place] [address] [address] [place] [address] Lena Aguilera APRN Urinary incontinence (Primary [...] Date Vijay rded Speak language other than Venezuelan at home Not on file 07/19/2023 Want [...] Description 02/11/2025 10:00 AM EDT Office Visit [facility] Orthopedics - [address] [place] [address] Nick Rasmussen PA-C [address] [place] [address] 08/19/2025 9:30 AM EST Appointment [facility] [address] [facility] [address] [place] [address] Health Maintenance Due Date Last [...] 60-74 years 1-dose series) 2023 COVID-19 VACCINE (1 - season) 2024 Influenza Vaccine (#1) 2025 Tobacco Cessation Counseling and Screening (12+) [...] - 58.8 pg/mL 12/05/2024 1:45 PM EDT [facility] Comment: Troponin Result (pg/mL) *Interpretation [...] NP LAB BLOOD ORDERABLES Final Res ult [facility] [address] [phone] * (ABNORMAL) Urinalysis, Reflex Microscopic and Culture If Indicated (12/05/2024 12:45 PM EDT) Color, UA Yellow 12/05/2024 2:20 PM EDT [facility] Clarity, UA Turbid(A) Clear 12/05/2024 2:20 PM EDT [facility] Specific Padroni, UA 1.024 1.005 - 1.030 12/05/2024 2:20 PM EDT [facility] pH, UA 7.0 6.0 - 8.0 12/05/2024 2:20 PM EDT [facility] Leukocytes, UA 500 Evangelist/uL(A) Negative 12/05/2024 2:20 PM EDT [facility] Nitrite, UA Negative Negative 12/05/2024 2:20 PM EDT [facility] Protein, UA Trace(A) Negative 12/05/2024 2:20 PM EDT [facility] Glucose, UA Normal Normal 12/05/2024 2:20 PM EDT [facility] Ketones, UA Negative Negative 12/05/2024 2:20 PM EDT [facility] Bilirubin, UA Negative Negative 12/05/2024 2:20 PM EDT [facility] Blood, UA Negative Negative 12/05/2024 2:20 PM EDT [facility] Urobilinogen, UA Normal Normal 12/05/2024 2:20 PM EDT [facility] Specimen Source Urine, Clean Catch 12/05/2024 2:20 PM EDT [facility] Urine URINE SPECIMEN COLLECTION, CLEAN CATCH / Unknown 12/05/2024 12:45 PM EDT 12/05/2024 2:07 PM EDT Yamel Hurt NP URINE ORDERABLES Final Result [facility] [address] [phone] * (ABNORMAL) Urinalysis Microscopic Only (12/05/2024 12:45 PM EDT) WBC, UA 51-100(A) None Seen /HPF 12/05/2024 2:20 PM EDT [facility] RBC, UA 6-10(A) None Seen /HPF 12/05/2024 2:20 PM EDT [facility] Bacteria, UA 2+(A) Trace, None Seen 12/05/2024 2:20 PM EDT [facility] Mucus 1+(A) None Seen 12/05/2024 2:20 PM EDT [facility] SQUAMOUS EPITHELIAL 3-5(A) None Seen /HPF 12/05/2024 2:20 PM EDT [facility] TRANSITIONAL EPITHELIAL CELLS 0-2(A) None Seen /HPF 12/05/2024 2:20 PM EDT [facility] Non Squamous Epithelial Cells Present Absent 12/05/2024 2:20 PM EDT [facility] Urine URINE SPECIMEN COLLECTION, CLEAN CATCH / Unknown 12/05/2024 12:45 PM EDT 12/05/2024 2:07 PM EDT Yamel Hurt NP URINE ORDERABLES Final Result Performing Organization Address City/[facility]/ZIP Co de Phone Number [facility] [address] [phone] * Urine Culture (12/05/2024 12:45 PM EDT) Result Recollect Specimen - 3 or more organisms suggests contamination 12/07/2024 8:55 AM EDT [facility] Urine URINE SPECIMEN COLLECTION, CLEAN CATCH / Unknown 12/05/2024 12:45 PM EDT 12/05/2024 2:19 PM EDT Yamel Hurt NP MICROBIOLOGY - GENERAL ORDERAB LES Final Result Performing Organization Address [facility]/ZIP Co de Phone Number [facility] [address] [phone] * XR chest 1 view portable / [...] 10.0 K/ L 12/05/2024 11:34 AM EDT [facility] RBC 4.85 3.93 - 6.08 M/ L 12/05/2024 11:34 AM EDT [facility] Hemoglobin 13.8 11.2 - 15.7 GM/DL 12/05/2024 11:34 AM EDT [facility] Hematocrit 41.5 34.1 - 44.9 % 12/05/2024 11:34 AM EDT [facility] MCV 86 79 - 95 fL 12/05/2024 11:34 AM EDT [facility] MCH 28.5 25.6 - 32.2 pg 12/05/2024 11:34 AM EDT [facility] MCHC 33.3 32.2 - 36.5 GM/DL 12/05/2024 11:34 AM EDT [facility] RDW 13.3 11.6 - 14.4 % 12/05/2024 11:34 AM EDT [facility] Platelets 195 163 - 369 K/CU MM 12/05/2024 11:34 AM EDT [facility] MPV 9.6 9.4 - 12.4 fL 12/05/2024 11:34 AM EDT [facility] % Neutros 70 34 - 71 % 12/05/2024 11:34 AM EDT [facility] % Lymphs 16(L) 19 - 53 % 12/05/2024 11:34 AM EDT [facility] % Monos 9 4 - 13 % 12/05/2024 11:34 AM EDT [facility] % Eos 5 1 - 7 % 12/05/2024 11:34 AM EDT [facility] % Baso 1 0 - 1 % 12/05/2024 11:34 AM EDT [facility] # Neutros 4.02 1.56 - 6.13 K/ L 12/05/2024 11:34 AM EDT [facility] # Lymphs 0.90(L) 1.18 - 3.74 K/ L 12/05/2024 11:34 AM EDT [facility] # Monos 0.52 0.24 - 0.82 K/ L 12/05/2024 11:34 AM EDT [facility] # Eos 0.27 0.04 - 0.54 K/ L 12/05/2024 11:34 AM EDT [facility] # Baso 0.05 0.01 - 0.08 K/ L 12/05/2024 11:34 AM EDT [facility] Immature Granulocytes-Re lative 0.30 0.00 - 0.60 % 12/05/2024 11:34 AM EDT [facility] # IG 0.02 0.00 - 0.05 K/uL 12/05/2024 11:34 AM EDT [facility] Blood Venipuncture / Unknown 12/05/2024 11:30 AM EDT 12/05/2024 11:30 AM EDT Narrative [facility] - 12/05/2024 11:34 AM EDT [...] noted Atypical Lymph flag noted Yamel Hurt CAMPUS RECRUITING COORDINATOR LAB BLOOD ORDERABLES Final Res ult Performing Organization Address [facility]/ZIP Co de Phone Number [facility] [address] [phone] * aPTT (12/05/2024 11:30 AM EDT) aPTT 25.9 22.0 - 32.0 seconds 12/05/2024 11:48 AM EDT [facility] Blood Venipuncture / Unknown 12/05/2024 11:30 AM EDT 12/05/2024 11:30 AM EDT Yamel Hurt LAB BLOOD ORDERABLES Final Res ult Performing Organization Address [facility] Co de Phone Number [facility] [address] [phone] * Prothrombin time/INR (12/05/2024 11:30 AM EDT) Protime 10.4 9.0 - 12.0 seconds 12/05/2024 11:48 AM EDT [facility] INR 0.95 0.80 - 1.10 12/05/2024 11:48 AM EDT [facility] Comment: Recommended therapeutic ranges using [...] NP LAB BLOOD ORDERABLES Final Res ult [facility] [address] [place] [address], [facility] [phone] * (ABNORMAL) Comprehensive metabolic panel (12/05/2024 11:30 AM EDT) Sodium 138 136 - 146 meq/L 12/05/2024 11:55 AM EDT [facility] Potassium 3.9 3.5 - 5.1 meq/L 12/05/2024 11:55 AM EDT [facility] Chloride 106 102 - 112 meq/L 12/05/2024 11:55 AM EDT [facility] CO2 26 21 - 32 meq/L 12/05/2024 11:55 AM EDT [facility] Calcium 9.6 8.5 - 10.1 mg/dL 12/05/2024 11:55 AM EDT [facility] Glucose 109(H) 74 - 106 mg/dL 12/05/2024 11:55 AM EDT [facility] BUN 24(H) 7 - 22 mg/dL 12/05/2024 11:55 AM EDT [facility] Creatinine 1.18(H) 0.55 - 1.02 mg/dL 12/05/2024 11:55 AM EDT [facility] BUN/Creatinine 20 8 - 20 12/05/2024 11:55 AM EDT [facility] Albumin 3.9 3.4 - 5.0 g/dL 12/05/2024 11:55 AM EDT [facility] Alkaline Phosphatase 97 27 - 136 U/L 12/05/2024 11:55 AM EDT [facility] ALT 32 12 - 78 U/L 12/05/2024 11:55 AM EDT [facility] AST 24 5 - 37 U/L 12/05/2024 11:55 AM EDT [facility] Total Bilirubin 0.5 0.2 - 1.3 mg/dL 12/05/2024 11:55 AM EDT [facility] Protein, Total 7.6 6.4 - 8.2 gm/dL 12/05/2024 11:55 AM EDT [facility] Anion Gap 10 9 - 20 12/05/2024 11:55 AM EDT [facility] A/G Ratio 1.1 1.1 - 2.5 12/05/2024 11:55 AM EDT [facility] Globulin 3.7 1.5 - 4.5 g/dL 12/05/2024 11:55 AM EDT [facility] Osmolality Calc 280.3 mOsm/kg 11:55 AM EDT [facility] eGFR (mL/min/1.73m2) 53(L) >=60 mL/min/1.7 3m2 12/05/2024 11:55 AM EDT [facility] Comment:ESTIMATED GFR IS NOT ACCURATE CREATININE CLEARANCE IN PREDICTING GLOMERULAR FILTRATION RATE. ESTIMATED GFR IS NOT APPLICABLE FOR DIALYSIS PATIENTS. Blood Venipuncture / Unknown 12/05/2024 11:30 AM EDT 12/05/2024 11:30 AM EDT us Yamel Hurt NP LAB BLOOD ORDERABLES Final Res ult [facility] [address] [phone] * ECG 12 lead (12/05/2024 11:03 AM EDT) SYSTOLIC BLOOD PRESSURE (MCT) 127 mmHg GE MUSE DIASTOLIC BLOOD PRESSURE (MCT) 77 mmHg GE MUSE VENTRICULAR RATE EKG/MIN 73 BPM GE MUSE ATRIAL RATE (MCT) 73 BPM GE MUSE [place] Interval 142 ms GE MUSE QRS-INTERVAL (MSEC) 66 ms GE MUSE QT Interval 394 ms GE MUSE QTC Interval 434 ms GE MUSE P [place] 38 degrees GE MUSE R AXIS (MCT) 67 degrees GE MUSE T Wave [place] 55 degrees GE MUSE [facility] Diagnosis Normal sinus rhythm Low voltage QRS Borderline ECG No previous ECGs available Confirmed by Bhumika URBANO SUZANNE ([id number]) on 12/09/2024 10:52:48 AM GE MUSE 12/05/2024 11:0 3 AM EDT 12/09/2024 10:52 AM EDT us Yamel Hurt EDDA ECG ORDERABLES Final Result GE MUSE * [...] recommended imaging studies/procedures. At our facility, a citizen [place]atom[place] marker is positioned over a visible skin [...] family history of breast cancer COMPARISON STUDY: [facility] 08/13/2024 FINDINGS: Craniocaudal and mediolateral [...] Most Recently Relevant to Health Maintenance Insurance [facility] Care Teams Buckle Sorter Relationship Specialty Start Date End Date Lena Aguilera, KALIN [address] [place] [address] PCP - General Family Medicine 10/28/23 Nick Rasmussen PA-C [address] [place] [address] Orthopedic Surgery 08/07/23 Nimisha Nuñez PA-C [address] [place] [address] Physician Senior Private Client Advisor Orthopedic Surgery 02/05/24
--- NOTE | 2025-01-18 08:30 | CT_ITS ---
FINAL REPORT CLINICAL HISTORY: pnemonia COMPARISON: None FINDINGS: CT CHEST without contrast COMPARISON: None . TECHNIQUE: Axial CT without contrast This study was performed with techniques to keep radiation doses as low as reasonably achievable, (ALARA). Individualized dose reduction techniques using automated exposure control or adjustment of mA and/or kV according to the patient's size were employed. FINDINGS: No acute lung disease is present . No pleural or pericardial effusion is seen . No adenopathy or mass lesion is present . 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 The left superior pulmonary vein branch drains into the left innominate vein. Fatty infiltration of the liver is noted. IMPRESSION: 1. No pneumonia or mass is noted. 2. 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 This study was performed using automated techniques to achieve radiation exposure as low as reasonably achievable Reviewed, Interpreted and Dictated by Jarvis Ochoa MD Transcribed by Virginia Callejas Authenticated and [facility]
== END 2025-01-18 23:59 | disposition home or self-care (01) ==
PROVIDERS: PCP Family Medicine; Visit Provider Family Medicine
DX: J18.9 Pneumonia, unspecified organism (principal); Q26.3 Partial anomalous pulmonary venous connection; K76.0 Fatty (change of) liver, not elsewhere classified
CPT/HCPCS: 71250

== ENCOUNTER 2025-01-19 13:51 | Outpatient (CLI) | payer OTHER, SELFPAY ==
--- OUTSIDE RECORDS SUMMARY | 2024-11-19 09:40 | XMS_ITS | Encounter Summary ---
Author Organization [employer] ([place], [place], [place], [place]) Address [address] [place] [address] Care Team Providers Care Instructor Physical Education Name Role Phone Nick Rasmussen PA-C Unavailable [phone] Lena Aguilera APRN Primary Care Provider Nimisha Nuñez PA-C Unavailable [phone] Reason for Referral * Diagnostic X-Ray (Routine) - Closed Specialty Diagnoses / Procedures Referred By Contac t Referred To Contact Radiology Diagnoses Bilateral foot pain Procedures XR FOOT BILATERAL 3 VIEW Weight Bearing Nick Rasmussen PA-C [address] [place] [address] Phone: tel: fax: [facility] Diagnostic Imaging - [facility] [address] [facility] [address] [place] [address] Phone: tel: fax: Referral ID Status Reason Start Date Expiration Date Visits Re quested Visits Authorized [id number] Closed 11/19/2024 11/19/2025 1 1 Reason for Visit * Diagnostic X-Ray (Routine) - Closed Specialty Diagnoses / Procedures Referred By Contac t Referred To Contact Radiology Diagnoses Bilateral foot pain Procedures XR FOOT BILATERAL 3 VIEW Weight Bearing Nick Rasmussen PA-C [address] [place] [address] Phone: tel: fax: [facility] Diagnostic Imaging - [address] [place] [address] Phone: tel: fax: Referral ID Status Reason Start Date Expiration Date Visits Re quested Visits Authorized [id number] Closed 11/19/2024 11/19/2025 1 1 Encounter Details Date Type Department Care Team (Late st Contact Info) Description 11/19/2024 9:40 AM EDT - 11/19/2024 11:59 PM EDT Hospital Encounter [facility] Diagnostic Imaging - [address] [facility] [address] [place] [address] Nick Rasmussen PA-C [address] [place] [address] Bilateral foot pain Discharge Disposition: Home or [...] Date Vijay rded Speak language other than Telugu at home Not on file 07/19/2023 Want [...] Description 02/11/2025 10:00 AM EDT Office Visit [facility] Orthopedics - [address] [place] [address] Nick Rasmussen PA-C [address] [place], [place] [id number] 08/19/2025 9:30 AM EST Appointment [address] [place] [address] documented as of this encounter [...] pain documented in this encounter Care Teams Instructor Physical Education Relationship Specialty Start Date End Date WillyLena, EXTRACTOR OPERATOR SOLVENT PROCESS [address] [place] [address] PCP - General Family Medicine 10/28/23 Nick Rasmussen PA-C [address] [place] [address] Orthopedic Surgery 08/07/23 Nimisha Nuñez PA-C [address] [place] [address] Physician Sewing Machines Salesperson Orthopedic Surgery 02/05/24 documented as of this encounter
--- OUTSIDE RECORDS SUMMARY | 2024-11-19 09:40 | XMS_ITS | Encounter Summary ---
Author Organization [employer] ([place], [place], [place], [place]) Address [address] [place] [address] Care Team Providers Care Play Back Operator Name Role Phone Nick Rasmussen PA-C Unavailable [phone] Lena Aguilera APRN Primary Care Provider [phone] Nimisha Nuñez PA-C Unavailable [phone] Reason for Referral * Diagnostic X-Ray (Routine) - Closed Specialty Diagnoses / Procedures Referred By Contac t Referred To Contact Radiology Diagnoses Bilateral hand pain Procedures X-ray hand bilateral PA lateral and oblique Nick Rasmussen PA-C [address] [place] [address] Phone: tel: fax: [facility] Diagnostic Imaging - [facility] [address] [facility] [address] [place] [address] Phone: tel: fax: Referral ID Status Reason Start Date Expiration Date Visits Re quested Visits Authorized [id number] Closed 11/19/2024 11/19/2025 1 1 Reason for Visit * Diagnostic X-Ray (Routine) - Closed Specialty Diagnoses / Procedures Referred By Contac t Referred To Contact Radiology Diagnoses Bilateral hand pain Procedures X-ray hand bilateral PA lateral and oblique Nick Rasmussen PA-C [address] [place] [address] Phone: tel: fax: [facility] - [address] [place] [address] Phone: tel: fax: Referral ID Status Reason Start Date Expiration Date Visits Re quested Visits Authorized [id number] Closed 11/19/2024 11/19/2025 1 1 Encounter Details Date Type Department Care Team (Late st Contact Info) Description 11/19/2024 9:40 AM EDT - 11/19/2024 11:59 PM EDT Hospital Encounter [facility] Diagnostic Imaging - [address] [facility] [address] [place] [address] Nick Rasmussen PA-C [address] [place] [address] Bilateral hand pain Discharge Disposition: Home or [...] Date Vijay rded Speak language other than Mongolian at home Not on file 07/19/2023 Want [...] Description 02/11/2025 10:00 AM EDT Office Visit [facility] Orthopedics - [address] [place] [address] Nick Rasmussen PA-C [address] [place], [place] [id number] 08/19/2025 9:30 AM EST Appointment [address] [place] [address] documented as of this encounter [...] pain documented in this encounter Care Teams Play Back Operator Relationship Specialty Start Date End Date Lena Aguilera, FORENSIC MEDICAL EXAMINER [address] [place] [address] PCP - General Family Medicine 10/28/23 Nick Rasmussen PA-C [address] [place] [address] Orthopedic Surgery 08/07/23 Nimisha Nuñez PA-C [address] [place] [address] Physician [facility] Orthopedic Surgery 02/05/24 documented as of this encounter
--- OUTSIDE RECORDS SUMMARY | 2024-12-05 10:57 | XMS_ITS | Encounter Summary ---
Author Organization [employer] ([place], [place], [place], [place]) Address [address] [place] [address] Care Team Providers Care Supervisor Bridges [employer] Buildings Name Role Phone Nick Rasmussen PA-C Unavailable [phone] Lena Aguilera APRN Primary Care Provider [phone] Nimisha Nuñez PA-C Unavailable [phone] Reason for Visit * Reason Comments Dizziness Pt presents to ED fo r dizziness, chest pain, earache, and headache. Onset 30 mins ago. Encounter Details Date Type Department Care Team (Late st Contact Info) Description 12/05/2024 10:57 AM EDT - 12/05/2024 2:53 PM EDT Emergency [facility] Emergency Department [address] [place] [phone] Mayank Patrick MD [address] [place], [place] [id number] Acute cystitis with hematuria (Primary Dx); Chest [...] Care Everywhere. * Urinary Tract Infection Adult [id number] (Guamanian) documented in this encounter Medications at Time [...] WITH POLYPECTOMY; Surgeon: Stephani Romero MD; Location: PSYCHIATRIC; Service: Gastroenterology; Laterality: N/A; HYSTERECTOMY KNEE SURGERY MS COLON CA SCRN NOT HI RSK IND [...] Yellow Clarity, UA Turbid (A) Clear Specific [place], UA 1.024 1.005 - 1.030 pH, UA [...] d iagnosis include but not limited to [place], dehydration, electrolyte imbalance, anxiety. During patient's visit [...] Medicine Relationship: [place] [address] Next Steps: Schedule an appointment as soon as possible for a visit Instructions: As needed, If symptoms worsen Associated attestation - Mayank Patrick MD - 12/06/2024 6:16 AM CDT Mayank Patrick MD: I saw the patient [id number]. I performed a substantive portion of the MDM. Chest x-ray was personally reviewed and independently interpreted by me with findings: No obvious pneumonia, no pneumothorax. documented in this encounter Plan of Treatment Upcoming Encounters Date Type Department Care Team (Late st Contact Info) Description 02/11/2025 10:00 AM EDT Office Visit [facility] Orthopedics [address] [place] [address] Nick Rasmussen PA-C [address] [place] [address] 08/19/2025 9:30 AM EST Appointment [facility] [address] [facility] [address] [place] [phone] documented as of this encounter Procedures [...] - 58.8 pg/mL 12/05/2024 1:45 PM EDT [facility] Comment: Troponin Result (pg/mL) *Interpretation [...] ORDERABLES Final Res ult Performing Organization Address [facility] Co de Phone Number [facility] [address] [place] [address], [place] [phone] * Urine Culture (12/05/2024 12:45 PM EDT) Result Recollect Specimen - 3 or more organisms suggests contamination 12/07/2024 8:55 AM EDT [facility] Urine URINE SPECIMEN COLLECTION, CLEAN CATCH / Unknown 12/05/2024 12:45 PM EDT 12/05/2024 2:19 PM EDT Yamel Hurt NP MICROBIOLOGY - GENERAL ORDERAB LES Final Result Performing Organization Address [facility] de Phone Number [facility] [address] [place] [address], [place] [phone] * (ABNORMAL) Urinalysis Microscopic Only (12/05/2024 12:45 PM EDT) WBC, UA 51-100(A) None Seen /HPF 12/05/2024 2:20 PM EDT [facility] RBC, UA 6-10(A) None Seen /HPF 12/05/2024 2:20 PM EDT [facility] Bacteria, UA 2+(A) Trace, None Seen 12/05/2024 2:20 PM EDT [facility] Mucus 1+(A) None Seen 12/05/2024 2:20 PM EDT [facility] SQUAMOUS EPITHELIAL 3-5(A) None Seen /HPF 12/05/2024 2:20 PM EDT [facility] TRANSITIONAL EPITHELIAL CELLS 0-2(A) None Seen /HPF 12/05/2024 2:20 PM EDT [facility] Non Squamous Epithelial Cells Present Absent 12/05/2024 2:20 PM EDT [facility] Urine URINE SPECIMEN COLLECTION, CLEAN CATCH / Unknown 12/05/2024 12:45 PM EDT 12/05/2024 2:07 PM EDT Yamel Hurt PROPERTY CARETAKER URINE ORDERABLES Final Result [facility] [address] [employer] [address] [phone] * (ABNORMAL) Urinalysis, Reflex Microscopic and Culture If Indicated (12/05/2024 12:45 PM EDT) Color, UA Yellow 12/05/2024 2:20 PM EDT [facility] Clarity, UA Turbid(A) Clear 12/05/2024 2:20 PM EDT [facility] Specific [place], UA 1.024 1.005 - 1.030 12/05/2024 2:20 PM EDT [facility] pH, UA 7.0 6.0 - 8.0 12/05/2024 2:20 PM EDT [facility] Leukocytes, UA 500 Evangelist/uL(A) Negative 12/05/2024 2:20 PM EDT [facility] Nitrite, UA Negative Negative 12/05/2024 2:20 PM EDT [facility] Protein, UA Trace(A) Negative 12/05/2024 2:20 PM EDT [facility] Glucose, UA Normal Normal 12/05/2024 2:20 PM EDT [facility] Ketones, UA Negative Negative 12/05/2024 2:20 PM EDT [facility] Bilirubin, UA Negative Negative 12/05/2024 2:20 PM EDT [facility] Blood, UA Negative Negative 12/05/2024 2:20 PM EDT [facility] Urobilinogen, UA Normal Normal 12/05/2024 2:20 PM EDT [facility] Specimen Source Urine, Clean Catch 12/05/2024 2:20 PM EDT [facility] Urine URINE SPECIMEN COLLECTION, CLEAN CATCH / Unknown 12/05/2024 12:45 PM EDT 12/05/2024 2:07 PM EDT Yamel Hurt NP URINE ORDERABLES Final Result [facility] [address] [phone] * XR chest 1 view portable / [...] is no pneumothorax . Procedure Note Jonny oRdriguez MD - 12/05/2024 PORTABLE CHEST 12/05/2024 11:27 [...] - 12.0 seconds 12/05/2024 11:48 AM EDT [facility] INR 0.95 0.80 - 1.10 12/05/2024 11:48 AM EDT [facility] Comment: Recommended therapeutic ranges using International Normalized Ratio (INR) are: INR RANGE 2.0 - 3.0 Routine oral anticoagulant therapy 2.5 - 3.5 Oral anticoagulant therapy for patients with thromboembolic events on standard doses of Coumadin and those with mechanical heart valves. Blood Venipuncture / Unknown 12/05/2024 11:30 AM EDT 12/05/2024 11:30 AM EDT Yamel Hurt PROPERTY CAR[employer]AK[employer] LAB BLOOD ORDERABLES Final Res ult Performing Organization Address [facility] Co de Phone Number [facility] [address] [phone] * aPTT (12/05/2024 11:30 AM EDT) aPTT 25.9 22.0 - 32.0 seconds 12/05/2024 11:48 AM EDT [facility] Blood Venipuncture / Unknown 12/05/2024 11:30 AM EDT 12/05/2024 11:30 AM EDT Yamel Hurt LAB BLOOD ORDERABLES Final Res ult Performing Organization Address [facility] Co de Phone Number [facility] [address] [phone] * High Sensitivity Troponin I (12/05/2024 11:30 AM EDT) Troponin I High Sensitivity (pg/mL) 5.4 3 - 58.8 pg/mL 12/05/2024 11:59 AM EDT [facility] Comment: Troponin Result (pg/mL) *Interpretation [...] NP LAB BLOOD ORDERABLES Final Res ult [facility] [address] [employer] [place] [id number] [phone] * (ABNORMAL) Comprehensive metabolic panel (12/05/2024 11:30 AM EDT) Sodium 138 136 - 146 meq/L 12/05/2024 11:55 AM EDT [facility] Potassium 3.9 3.5 - 5.1 meq/L 12/05/2024 11:55 AM EDT [facility] Chloride 106 102 - 112 meq/L 12/05/2024 11:55 AM EDT [facility] CO2 26 21 - 32 meq/L 12/05/2024 11:55 AM EDT [facility] Calcium 9.6 8.5 - 10.1 mg/dL 12/05/2024 11:55 AM T [facility] Glucose 109(H) 74 - 106 mg/dL 12/05/2024 11:55 AM EDT [facility] BUN 24(H) 7 - 22 mg/dL 12/05/2024 11:55 AM EDT [facility] Creatinine 1.18(H) 0.55 - 1.02 mg/dL 12/05/2024 11:55 AM EDT [facility] BUN/Creatinine 20 8 - 20 12/05/2024 11:55 AM EDT [facility] Albumin 3.9 3.4 - 5.0 g/dL 12/05/2024 11:55 AM EDT [facility] Alkaline Phosphatase 97 27 - 136 U/L 12/05/2024 11:55 AM EDT [facility] ALT 32 12 - 78 U/L 12/05/2024 11:55 AM EDT [facility] AST 24 5 - 37 U/L 12/05/2024 11:55 AM EDT [facility] Total Bilirubin 0.5 0.2 - 1.3 mg/dL 12/05/2024 11:55 AM EDT [facility] Protein, Total 7.6 6.4 - 8.2 gm/dL 12/05/2024 11:55 AM EDT [facility] Anion Gap 10 9 - 20 12/05/2024 11:55 AM EDT [facility] A/G Ratio 1.1 1.1 - 2.5 12/05/2024 11:55 AM EDT [facility] Globulin 3.7 1.5 - 4.5 g/dL 12/05/2024 11:55 AM EDT [facility] Osmolality Calc 280.3 mOsm/kg 11:55 AM EDT [facility] eGFR (mL/min/1.73m2) 53(L) >=60 mL/min/1.7 3m2 12/05/2024 11:55 AM EDT [facility] Comment:ESTIMATED GFR IS NOT ACCURATE CREATININE CLEARANCE IN PREDICTING GLOMERULAR FILTRATION RATE. ESTIMATED GFR IS NOT APPLICABLE FOR DIALYSIS PATIENTS. Blood Venipuncture / Unknown 12/05/2024 11:30 AM EDT 12/05/2024 11:30 AM EDT us Yamel Hurt PROPERTY CAR[employer]AK[employer] LAB BLOOD ORDERABLES Final Res ult [facility] [address] [phone] * (ABNORMAL) CBC with automated diff (12/05/2024 11:30 AM EDT) WBC 5.8 3.9 - 10.0 K/ L 12/05/2024 11:34 AM EDT [facility] RBC 4.85 3.93 - 6.08 M/ L 12/05/2024 11:34 AM EDT [facility] Hemoglobin 13.8 11.2 - 15.7 GM/DL 12/05/2024 11:34 AM EDT [facility] Hematocrit 41.5 34.1 - 44.9 % 12/05/2024 11:34 AM EDT [facility] MCV 86 79 - 95 fL 12/05/2024 11:34 AM EDT [facility] MCH 28.5 25.6 - 32.2 pg 12/05/2024 11:34 AM EDT [facility] MCHC 33.3 32.2 - 36.5 GM/DL 12/05/2024 11:34 AM EDT [facility] RDW 13.3 11.6 - 14.4 % 12/05/2024 11:34 AM EDT [facility] Platelets 195 163 - 369 K/CU MM 12/05/2024 11:34 AM EDT [facility] MPV 9.6 9.4 - 12.4 fL 12/05/2024 11:34 AM EDT [facility] % Neutros 70 34 - 71 % 12/05/2024 11:34 AM EDT [facility] % Lymphs 16(L) 19 - 53 % 12/05/2024 11:34 AM EDT [facility] % Monos 9 4 - 13 % 12/05/2024 11:34 AM EDT [facility] % Eos 5 1 - 7 % 12/05/2024 11:34 AM EDT [facility] % Baso 1 0 - 1 % 12/05/2024 11:34 AM EDT [facility] # Neutros 4.02 1.56 - 6.13 K/ L 12/05/2024 11:34 AM EDT [facility] # Lymphs 0.90(L) 1.18 - 3.74 K/ L 12/05/2024 11:34 AM EDT [facility] # Monos 0.52 0.24 - 0.82 K/ L 12/05/2024 11:34 AM EDT [facility] # Eos 0.27 0.04 - 0.54 K/ L 12/05/2024 11:34 AM EDT [facility] # Baso 0.05 0.01 - 0.08 K/ L 12/05/2024 11:34 AM EDT [facility] Immature Granulocytes-Re lative 0.30 0.00 - 0.60 % 12/05/2024 11:34 AM EDT [facility] # IG 0.02 0.00 - 0.05 K/uL 12/05/2024 11:34 AM EDT [facility] Blood Venipuncture / Unknown 12/05/2024 11:30 AM EDT 12/05/2024 11:30 AM EDT Narrative [facility] - 12/05/2024 11:34 AM EDT [...] ORDERABLES Final Res ult Performing Organization Address [facility] Co de Phone Number [facility] [address] [phone] * ECG 12 lead (12/05/2024 11:03 AM EDT) SYSTOLIC BLOOD PRESSURE (MCT) 127 mmHg GE MUSE DIASTOLIC BLOOD PRESSURE (MCT) 77 mmHg GE MUSE VENTRICULAR RATE EKG/MIN 73 BPM GE MUSE ATRIAL RATE (MCT) 73 BPM GE MUSE MS Interval 142 ms GE MUSE QRS-INTERVAL (MSEC) 66 ms GE MUSE QT Interval 394 ms GE MUSE QTC Interval 434 ms GE MUSE P [place] 38 degrees GE MUSE R AXIS (MCT) 67 degrees GE MUSE T Wave [place] 55 degrees GE MUSE [place] Diagnosis Normal sinus rhythm Low voltage QRS Borderline ECG No previous ECGs available Confirmed by Bhumika URBANO SUZANNE ([id number]) on 12/09/2024 10:52:48 AM GE MUSE 12/05/2024 11:0 3 AM EDT 12/09/2024 10:52 AM EDT Yamel Hurt NP ECG ORDERABLES Final Result Performing Organization Address [facility] Co de Phone Number GE MUSE [...] RN) documented in this encounter Care Teams Supervisor [employer] Buildings Relationship Specialty Start Date End Date Lena Aguilera, BOOK REVIEWER [address] [place] [address] PCP - General Family Medicine 10/28/23 Nick Rasmussen PA-C [address] [place] [address] Orthopedic Surgery 08/07/23 Nimisha Nuñez PA-C [address] [place] [address] Physician Appliance Tester Orthopedic Surgery 02/05/24 documented as of this encounter
--- OUTSIDE RECORDS SUMMARY | 2024-12-11 14:04 | XMS_ITS | Encounter Summary ---
[facility] Address [address] [place] [address] Care Team Providers Care House Mover Helper Name Role Phone Provider, No Known Primary Care Provider Unavail able Reason for Referral * Consultation (Routine) - Closed Specialty Diagnoses / Procedures Referred By Kai t Referred To Contact Cardiology Diagnoses Atypical chest pain Procedures IA OFFICE/OUTPATIENT NEW MODERATE MDM 45 MINUTES Esteban Pantoja PA-C [address] [place] [address] [address] [place] [address] Phone: tel: fax: Govind Christy MD [address] [place] [address] [address] [place] [address] Phone: tel: fax: Referral ID Status Reason Start Date Expiration Date V isits Requested Visits Authorized [id number] Closed Specialty Services Required 12/11/2024 03/12/2026 1 1 Reason for Visit * Reason Comments Chest Pain Encounter Details Date Type Department Care Team (Late st Contact Info) Description 12/11/2024 2:04 PM EDT - 12/11/2024 5:42 PM EDT Emergency [facility] EM[facility]PART[facility] [address] [place] [phone] Abhilash Gonzalez DO [address] [place] [address] [address] [place] [address] Atypical chest pain (Primary Dx) Discharge Disposition: [...] 03/2023 Potentially Unsafe Housing Conditions Not on marla e 04/08/2023 Family and Community Support Answer [...] 2:10 PM EDT Hu Dey RN * [place] Suicide Severity Rating Scale (Screener/Recent Self-Report) Question Answer Date of Assessment Author 1. Wish to be (Past 1 Month) No 025 2:10 PM EDT Destiney Dey RN 2. Non-Specific Active Suici alma Thoughts (Past 1 Month) No 12/11/2024 2:10 PM EDT Destiney Dye RN 6. Suicidal Behavior (Lifetime) No 5 2:10 PM EDT Destiney Dey RN documented as of this encounter Discharge Instructions * Attachments The following attachments cannot be sent through Care Everywhere. * Nonspecific Chest Pain Adult (Vincentian) documented in this encounter Medications at Time [...] episode last week and was seen at [facility] ED with a normal workup. She has [...] Value Units Date/Time High Sensitivity Troponin T [[id number]] (Normal) Collected: 12/11/241414 Specimen: Blood Updated: 12/11/24 1435 HS Troponin T 9 ng/L CBC & Differential [[id number]] (Abnormal) Collected: 12/11/241414 Specimen: Blood Updated: 12/11/24 1421 Narrative: The following orders were created for panel order CBC & Differential. Procedure Abnormality Status --------- ------ CBC Auto Differential[[id number]] Abnormal Final result Please view results for these tests on the individual orders. Comprehensive Metabolic Panel [[id number]] (Abnormal) Collected: 12/11/241414 Specimen: Blood Updated: 12/11/24 [...] not include race as a factor Lipase [[id number]] (Normal) Collected: 12/11/241414 Specimen: Blood Updated: 12/11/241437 Lipase 33 U/L BNP [[id number]] (Normal) Collected: 12/11/241414 Specimen: Blood Updated: 12/11/241435 [...] Veras 300-1800 Negative <300 CBC Auto Differential [[id number]] (Abnormal) Collected: 12/11/241414 Specimen: Blood Updated: 12/11/241420 [...] 0.01 10*3/mm3 High Sensitivity Troponin T 1Hr [[id number]] (Normal) Collected: 12/11/24 1523 Specimen: Blood Updated: [...] Brock, 12/11/2024 3:27 PM EDT Workstation ID: [id number] XR Chest 1 View Result Date: 12/11/2024 [...] MD 12/11/2024 3:17 PM EDT Workstation ID: [id number] MDM Amount and/or Complexity of Data Reviewed Clinical lab tests: reviewed Tests in the radiology section of CPT??: reviewed Tests in the medicine section of CPT??: reviewed DDX: includes but is not limited to: Acute NC, chest wall pain, pneumonia, pulmonary embolism Patient [...] 100 mL (85 mL Intravenous Given 12/11/24 1285) Results/clinical rationale were discussed with patient I [...] diagnoses: Atypical chest pain Your Follow-Up Providers [facility]. Specialty: Cardiology [address] [facility] [place] [address] [facility] [id number] Additional information: . Located on the same side of the street as Agusyoshi rustam [place]. Entrance Information: Patients are encouraged to park in front of [facility], using Entrance A, near the fountain. Contact [...] Your Medications These medications were sent to [facility] [id number] - [place], [place] - [address] [place] [address] [address] - [phone] - [phone] [place] [id number] azithromycin 250 MG tablet diclofenac 75 MG [...] 7 <14 ng/L 12/11/2024 3:48 PM EDT [facility] Troponin T Numeric Delta -2 Abnormal if >/=3 ng/L 12/11/2024 3:48 PM EDT [facility] Blood Line / Unknown 12/11/2024 3: 23 PM EDT 12/11/2024 3:26 PM EDT Narrative [facility] - 12/11/2024 3:48 PM EDT High [...] Gonzalez DO LAB BLOOD ORDERABLES Final Result [facility]
[address] [place] [address], * ECG 12 Lead Chest Pain (12/11/2024 [...] change was found Confirmed by Abhilash Gonzalez ([id number]) on 12/20/2024 6:01:12 PM Referred By: Confirmed [...] change was found Confirmed by Abhilash Gonzalez ([id number]) on 12/20/2024 6:01:12 PM Referred By: Confirmed [...] DO 12/11/2024 3:27 PM EDT Workstation ID: [id number] Narrative 12/11/2024 3:[address] ANGIOGRAM [...] airways are patent. No pleuraleffusion or pneumothorax Mediastinum/Sherrill: No lymphadenopathy. No suspicious [...] DO 12/11/2024 3:27 PM EDT Workstation ID: [id number] Esteban Pantoja PA-C IMG CT ORDERABLES Final Resu lt * XR Chest 1 View (12/11/2024 2:38 PM EDT) Anatomical Region Laterality Modality Body N/A Radiographic Loretta ging 12/11/2024 3:17 PM EDT Impressions 12/11/2024 3:17 PM EDT Impression: No active disease. Electronically Signed: Seth Spivey MD 12/11/2024 3:17 PM EDT Workstation ID: [id number] Narrative 12/11/2024 3:17 PM EDT XR CHEST [...] MD 12/11/2024 3:17 PM EDT Workstation ID: [id number] Abhilash Gonzalez DO IMG DIAGNOSTIC IMAGING ORDE RABDARY Final Result * (ABNORMAL) CBC Auto Differential (12/11/2024 2:15 PM EDT) WBC 6.22 3.40 - 10.80 10*3/mm3 12/11/2024 2:21 PM EDT [facility] RBC 4.80 3.77 - 5.28 10*6/mm3 12/11/2024 2:21 PM [facility] Hemoglobin 13.4 12.0 - 15.9 g/dL [facility] Hematocrit 39.7 34.0 - 46.6 % 12/11/2024 2:21 PM [facility] MCV 82.7 79.0 - 97.0 fL 12/11/2024 2:21 PM [facility] MCH 27.9 26.6 - 33.0 pg 12/11/2024 2:21 PM [facility] MCHC 33.8 31.5 - 35.7 g/dL 12/11/2024 2:21 PM [facility] RDW 12.5 12.3 - 15.4 % 12/11/2024 2:21 PM [facility] RDW-SD 38.1 37.0 - 54.0 fl 12/11/2024 2:21 PM [facility] MPV 9.8 6.0 - 12.0 fL 12/11/2024 2:21 PM [facility] Platelets 206 140 - 450 10*3/mm3 12/11/2024 2:21 PM [facility] Neutrophil % 66.8 42.7 - 76.0 % 12/11/2024 2:21 PM [facility] Lymphocyte % 24.8 19.6 - 45.3 % 12/11/2024 2:21 PM [facility] Monocyte % 4.7(L) 5.0 - 12.0 % 12/11/2024 2:21 PM [facility] Eosinophil % 2.9 0.3 - 6.2 % 12/11/2024 2:21 PM [facility] Basophil % 0.6 0.0 - 1.5 % 12/11/2024 2:21 PM [facility] Immature Grans % 0.2 0.0 - 0.5 % 12/11/2024 2:21 PM [facility] Neutrophils, Absolute 4.16 1.70 - 7.00 10*3/mm3 12/11/2024 2:21 PM EDT [facility] Lymphocytes, Absolute 1.54 0.70 - 3.10 10*3/mm3 12/11/2024 2:21 PM EDT [facility] Monocytes, Absolute 0.29 0.10 - 0.90 10*3/mm3 12/11/2024 2:21 PM EDT [facility] Eosinophils, Absolute 0.18 0.00 - 0.40 10*3/mm3 12/11/2024 2:21 PM EDT [facility] Basophils, Absolute 0.04 0.00 - 0.20 10*3/mm3 12/11/2024 2:21 PM EDT [facility] Immature Grans, Absolute 0.01 0.00 - 0.05 10*3/mm3 12/11/2024 2:21 PM EDT [facility] Blood Venipuncture / Unknown 12/11/2024 2:15 PM EDT 12/11/2024 2:18 PM EDT Abhilash Gonzalez DO LAB BLOOD ORDERABLES Final Result [facility]
[address] [facility] [address] [place] [address], [place] * Light Blue Top (12/11/2024 2:15 PM EDT) Extra Tube Hold for add-ons. 12/11/2024 2:31 PM EDT [facility] Comment:Auto resulted Blood Venipuncture / Unknown 12/11/2024 2:15 PM EDT 12/11/2024 2:18 PM EDT Abhilash Gonzalez DO LAB BLOOD ORDER ONLY Final Result [facility]
[address] [place] [address], [place] * Veras Top (12/11/2024 2:15 PM EDT) Extra Tube Hold for add-ons. 12/11/2024 2:31 PM EDT [facility] Comment:Auto resulted. Blood Venipuncture / Unknown 12/11/2024 2:15 PM EDT 12/11/2024 2:18 PM EDT Abhilash Chavarria Nichellejordan DO LAB BLOOD ORDER ONLY Final Result [facility]
[address] [place] [address], [place] * Gold Top - SST (12/11/2024 2:15 PM EDT) Extra Tube Hold for add-ons. 12/11/2024 2:31 PM EDT [facility] Comment:Auto resulted. Blood Venipuncture / Unknown 12/11/2024 2:15 PM EDT 12/11/2024 2:18 PM EDT Abhilash Gonzalez DO LAB BLOOD ORDER ONLY Final Result Performing Organization Address City/[facility]/ZIP Co de Phone Number [facility]
[address] [facility] [address] [place] [address], [place] * Lavender Top (12/11/2024 2:15 PM EDT) Extra Tube hold for add-on 12/11/2024 2:31 PM EDT [facility] Comment:Auto resulted Blood Venipuncture / Unknown 12/11/2024 2:15 PM EDT 12/11/2024 2:18 PM EDT Abhilash Chavarria Nichelleseemablossom DO LAB BLOOD ORDER ONLY Final Result [facility]
[address] [place] [address], [place] * Green Top (Gel) (12/11/2024 2:15 PM EDT) Extra Tube Hold for add-ons. 12/11/2024 2:31 PM EDT [facility] Comment:Auto resulted. Blood Venipuncture / Unknown 12/11/2024 2:15 PM EDT 12/11/2024 2:18 PM EDT Abhilash Gonzalez DO LAB BLOOD ORDER ONLY Final Result [facility]
[address] [facility] [address] [place] [address], [place] * BNP (12/11/2024 2:15 PM EDT) proBNP 136.0 0.0 - 900.0 pg/mL 12/11/2024 2:36 PM EDT [facility] Blood Venipuncture / Unknown 12/11/2024 2:15 PM EDT 12/11/2024 2:18 PM EDT Narrative [facility] - 12/11/2024 2:36 PM EDT This [...] Gonzalez DO LAB BLOOD ORDERABLES Final Result [facility]
[address] [facility] [address] [place] [address], [place] * Lipase (12/11/2024 2:15 PM EDT) Lipase 33 13 - 60 U/L 12/11/2024 2:38 PM EDT [facility] Blood Venipuncture / Unknown 12/11/2024 2:15 PM EDT 12/11/2024 2:18 PM EDT us Abhilash Gonzalez DO LAB BLOOD ORDERABLES Final Result [facility]
[address] [place] [address], [place] * (ABNORMAL) Comprehensive Metabolic Panel (12/11/2024 2:15 PM EDT) Pathologist [facility] Glucose 104(H) 65 - 99 mg/dL 12/11/2024 2:39 PM EDT [facility] BUN 25.6(H) 8.0 - 23.0 mg/dL 12/11/2024 2:39 PM EDT [facility] Creatinine 1.21(H) 0.57 - 1.00 mg/dL 12/11/2024 2:39 PM EDT [facility] Sodium 143 136 - 145 mmol/L 12/11/2024 2:39 PM EDT [facility] Potassium 3.8 3.5 - 5.2 mmol/L 12/11/2024 2:39 PM EDT [facility] Chloride 105 98 - 107 mmol/L 12/11/2024 2:39 PM EDT [facility] CO2 19.9(L) 22.0 - 29.0 mmol/L 12/11/2024 2:39 PM EDT [facility] Calcium 10.6(H) 8.6 - 10.5 mg/dL 12/11/2024 2:39 PM EDT [facility] Total Protein 7.3 6.0 - 8.5 g/dL 12/11/2024 2:39 PM EDT [facility] Albumin 4.4 3.5 - 5.2 g/dL 12/11/2024 2:39 PM EDT [facility] ALT (SGPT) 27 1 - 33 U/L 12/11/2024 2:39 PM EDT [facility] AST (SGOT) 24 1 - 32 U/L 12/11/2024 2:39 PM EDT [facility] Alkaline Phosphatase 92 39 - 117 U/L 12/11/2024 2:39 PM EDT [facility] Total Bilirubin 0.3 0.0 - 1.2 mg/dL 12/11/2024 2:39 PM EDT [facility] Globulin 2.9 gm/dL 12/11/2024 2:39 PM EDT [facility] A/G Ratio 1.5 g/dL 12/11/2024 2:39 PM EDT [facility] BUN/Creatinine Ratio 21.2 7.0 - 25.0 12/11/2024 2:39 PM EDT [facility] Anion Gap 18.1(H) 5.0 - 15.0 mmol/L 12/11/2024 2:39 PM EDT [facility] eGFR 51.1(L) >60.0 mL/min/1.7 3 12/11/2024 2:39 PM EDT [facility] Blood Venipuncture / Unknown 12/11/2024 2:15 PM EDT 12/11/2024 2:18 PM EDT Narrative [facility] - 12/11/2024 2:39 PM EDT GFR [...] Gonzalez DO LAB BLOOD ORDERABLES Final Result [facility]
[address] [place] [address], * High Sensitivity Troponin T (12/11/2024 2:15 PM EDT) HS Troponin T 9 <14 ng/L 12/11/2024 2:35 PM EDT [facility] Blood Venipuncture / Unknown 12/11/2024 2:15 PM EDT 12/11/2024 2:18 PM EDT Abhilash Gonzalez DO LAB BLOOD ORDERABLES Final Result [facility]
[address] [facility] [address] [place] [address], [place] * ECG 12 Lead Chest Pain [...] previous ECGs available Confirmed by Abhilash Gonzalez ([id number]) on 12/11/2024 6:55:37 PM Referred By: Confirmed [...] previous ECGs available Confirmed by Abhilash Gonzalez ([id number]) on 12/11/2024 6:55:37 PM Referred By: Confirmed [...] 1406 documented in this encounter Care Teams House Mover Helper Relationship Specialty Start Date End Date Provider, [place] [address] PCP - General 12/11/24 documented as of this encounter
--- OUTSIDE RECORDS SUMMARY | 2024-12-18 09:00 | XMS_ITS | Encounter Summary ---
Author Organization [employer] ([place], [place], [place], [place]) Address [address] [place] [address] Care Team Providers Care Studio Hand Name Role Phone Nick Rasmussen PA-C Unavailable [phone] Lena Aguilera APRN Primary Care Provider [phone] Nimisha Nuñez PA-C Unavailable [phone] Reason for Visit * Other (Routine) - Closed Specialty Diagnoses / Procedures Referred By Kai robins Referred To Contact Neurology Diagnoses Numbness and tingling of both upper extremities Procedures EMG W/ NCS Nick Rasmussen PA-C [address] [place] [address] Phone: tel: fax: Sharda Dexter MD [address] [facility] [address] [place] [address] Phone: tel: fax: Referral ID Status Reason Start Date Expiration Date Visits Re quested Visits Authorized [id number] Closed 11/19/2024 11/19/2025 1 1 Encounter Details Date Type Department Care Team (Late st Contact Info) Description 12/18/2024 9:00 AM EDT Procedure Visit [facility] Neurology - [place] [address] [place] [address] Nick Rasmussen PA-C [address] [place] [address] Sharda Dexter MD [address] [facility] [address] [place] [address] Numbness and tingling of both [...] Date Vijay rded Speak language other than Khmer at home Not on file 07/19/2023 Want [...] Description 02/11/2025 10:00 AM EDT Office Visit [facility] Orthopedics - [address] [place] [address] Nick Rasmussen PA-C [address] [place] [address] 08/19/2025 9:30 AM EST Appointment [facility] [address] [facility] [address] [place] [address] documented as of this encounter Visit Diagnoses Diagnosis Numbness and tingling of both upper extremities documented in this encounter Care Teams Studio Hand Relationship Specialty Start Date End Date Lena Aguilera, NEWS REEL CAMERAMAN [address] [place] [address] PCP - General Family Medicine 10/28/23 Nick Rasmussen PA-C [address] [place] [address] Orthopedic Surgery 08/07/23 Nimisha Nuñez PA-C [address] [place] [address] Physician Airbrush Painter Orthopedic Surgery 02/05/24 documented as of this encounter
--- OUTSIDE RECORDS SUMMARY | 2024-12-23 14:15 | XMS_ITS | Encounter Summary ---
Author Organization [employer] ([place], [place], [place], [place]) Address [address] [place] [address] Care Team Providers Care Turn Down Worker Name Role Phone Nick Rasmussen PA-C Unavailable [phone] Lena Aguilera APRN Primary Care Provider [phone] Nimisha Nuñez PA-C Unavailable [phone] Reason for Visit * Reason Comments Follow-up BUE numbness and tin gling with EMG and lab results. Encounter Details Date Type Department Care Team (Late st Contact Info) Description 12/23/2024 2:15 PM EDT Office Visit [facility] Orthopedics - [address] [place] [address] Nick Rasmussen PA-C [address] [phone] Left carpal tunnel syndrome (Primary Dx) Social [...] Date Vijay rded Speak language other than Malay at home Not on file 07/19/2023 Want [...] were not included. 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, and she [...] WITH POLYPECTOMY; Surgeon: Stephani Romero MD; Location: [facility]; Service: Gastroenterology; Laterality: N/A; HYSTERECTOMY KNEE SURGERY FL COLON CA SCRN NOT HI RSK IND [...] 4/5 Flexion and Extension at wrist; 4/5 director rehabilitation program strength Neurovascular: capillary refill WNL, 2+ Radial pulse, +skin disturbance in median nerve distribution bilateral (less severe in left) Skin: normal appearance with no discoloration or wounds IMAGING/OUTSIDE REPORTS EMG report from [facility] performed on 12/18/24 was reviewed today revealing: [...] Description 02/11/2025 10:00 AM EDT Office Visit [facility] Orthopedics - [address] [place] [address] Nick Rasmussen PA-C [address] [place] [address] 08/19/2025 9:30 AM EST Appointment [facility] [address] [place] [address] documented as of this encounter Visit Diagnoses Diagnosis Left carpal tunnel syndrome- Primary Carpal tunnel syndrome documented in this encounter Care Teams Turn Down Worker Relationship Specialty Start Date End Date Lena Aguilera APRN [address] [place] [address] PCP - General Family Medicine 10/28/23 Nick Rasmussen PA-C [address] [place], [place] [id number] Orthopedic Surgery 08/07/23 Nimisha Nuñez PA-C [address] [place], [place] [phone] Physician Shipping Coordinator Orthopedic Surgery 02/05/24 documented as of this encounter
--- OUTSIDE RECORDS SUMMARY | 2025-01-19 13:55 | XMS_ITS | Encounter Summary ---
Author Organization [facility] Address [address] [place] [address] Care Team Providers Care Counter Pocket Sewer Name Role Phone Provider, No Known Primary [...] 2:10 PM EDT Hu Dey RN * [place] Suicide Severity Rating Scale (Screener/Recent Self-Report) Question [...] on filedocumented in this encounter Care Teams Counter Pocket Sewer Relationship Specialty Start Date End Date Provider, [place] [address] PCP - General 12/11/24 documented as of this encounter
--- OUTSIDE RECORDS SUMMARY | 2025-01-19 13:55 | XMS_ITS | Encounter Summary ---
Author Organization [employer] ([place], [place], [place], [place]) Address [address] [place] [address] Care Team Providers Care Field Contractor Name Role Phone Nick Rasmussen PA-C Unavailable [phone] Lena Aguilera APRN Primary Care Provider [phone] Nimisha Nuñez PA-C Unavailable [phone] Encounter Details Date Type Department Care Team [...] Date Vijay rded Speak language other than Mosotho at home Not on file 07/19/2023 Want [...] Description 02/11/2025 10:00 AM EDT Office Visit [facility] Orthopedics - [address] [place] [phone] Nick Rasmussen PA-C [address] [place] [address] 08/19/2025 9:30 AM EST Appointment [facility] [address] [facility] [address] [place] [address] documented as of this encounter Visit Diagnoses Not on filedocumented in this encounter Care Teams Field Contractor Relationship Specialty Start Date End Date Lena Aguilera, OEM SALES MANAGER [address] [place] [address] PCP - General Family Medicine 10/28/23 Nick Rasmussen PA-C [address] [place] [address] Orthopedic Surgery 08/07/23 Nimisha Nuñez PA-C [address] [place] [address] Physician [employer] Rough[employer] Orthopedic Surgery 02/05/24 documented as of this encounter
--- OUTSIDE RECORDS SUMMARY | 2025-01-19 13:55 | XMS_ITS | Encounter Summary ---
Author Organization [employer] ([place], [place], [place], [place]) Address [address] [place] [address] Care Team Providers Care Certified Physical Therapist Assistant Name Role Phone Nick Rasmussen PA-C Unavailable [phone] Lena Aguilera APRN Primary Care Provider [phone] Nimisha Nuñez PA-C Unavailable [phone] Encounter Details Date Type Department Care [...] Date Vijay rded Speak language other than Zimbabwean at home Not on file 07/19/2023 Want [...] Description 02/11/2025 10:00 AM EDT Office Visit [facility] Orthopedics - [address] [place] [id number] Nick Rasmussen PA-C [address] [place] [address] 08/19/2025 9:30 AM EST Appointment [facility] [address] [facility] [address] [place] [address] documented as of this encounter Visit Diagnoses Not on filedocumented in this encounter Care Teams Certified Physical Therapist Assistant Relationship Specialty Start Date End Date Lena Aguilera, MAPLE PRODUCTS SUPERVISOR [address] [place] [address] PCP - General Family Medicine 10/28/23 Nick Rasmussen PA-C [address] [place] [address] Orthopedic Surgery 08/07/23 Nimisha Nuñez PA-C [address] [place] [address] Physician Drum Builder Orthopedic Surgery 02/05/24 documented as of this encounter
--- OUTSIDE RECORDS SUMMARY | 2025-01-19 13:55 | XMS_ITS | Encounter Summary ---
Author Organization [employer] ([place], [place], [place], [place]) Address [address] [place] [address] Care Team Providers Care Carpenter Mine Name Role Phone Krystyna Elliott [facility] Primary Care Provider Nick Rasmussen PA-C Unavailable [phone] Lena Aguilera APRN Primary Care Provider [phone] Nimisha Nuñez PA-C Unavailable [phone] Encounter Details Date Type Department Care Team (Late st Contact Info) Description 12/17/2019 Transcribed Document [address] [address] Provider, Audra Hargrove MD Social [...] Conversion Note - [facility] Beena ProviderMD - 12/17/2019 10:36 AM EDT CAROLYN Main OR PreOp Summary Primary Physician: DRAGAN FLAHERTY MD-ORT Finalized Date/Time: 12/17/19 10:46:48 Pt. Name: ANISA KATZISE /Sex: 1965 Female Med Rec #: [id number] Physician: DRAGAN FLAHERTY MD-ORT Financial #: [id number] Pt. Type: O Room/Bed: [facility]/4 Admit/Disch: 12/17/19 04:47:00 - Institution: [facility] PreOp Case Times Entry 1 In Preop 12/17/19 06:50:00 Ready for Holding n/a Room Patient Ready for 12/17/19 08:36:00 Surgery Patient Out of Preop 12/17/19 09:30:00 Patient Out of n/a Holding Room Last Modified By: ELIGIO SCALES 12/17/19 10:46:47 Kiara PreOp Case Times Audit 12/17/19 10:46:47 Ict Systems Test Engineer: SHALINI Modifier: [email or web address] <+> 1 Patient Out of Preop 12/17/19 08:36:21 Ict Systems Test Engineer: SHALINI Modifier: [email or web address] <+> 1 Patient Ready for Surgery Finalized By: ELIGIO SCALES Document Signatures Signed By: ELIGIO SCALES 12/17/19 10:46 Electronically signed by Ranjan [facility] Conversion Salvage Repairer Cerner at 11/21/2022 11:15 AM CDT documented in this encounter Plan of Treatment Upcoming Encounters Date Type Department Care Team (Late st Contact Info) Description 02/11/2025 10:00 AM EDT Office Visit [facility] Orthopedics - [address] [place] [address] Nick Rasmussen PA-C [address] [place] [address] 08/19/2025 9:30 AM EST Appointment [facility] [address] [facility] [address] [place] [address] documented as of this encounter Visit Diagnoses Not on filedocumented in this encounter Care Teams Carpenter Mine Relationship Specialty Start Date End Date Krystyna Elliott [facility] At [address] [address] PCP - General 09/19/22 10/27/23 Lena Aguilera, KALIN [address] [place] [address] PCP - General Family Medicine 10/28/23 Nick Rasmussen PA-C [address] [place], [place] [id number] Orthopedic Surgery 08/07/23 Nimisha Nuñez PA-C [address] [place], [place] [id number] Physician Reed Fixer Orthopedic Surgery 02/05/24 documented as of this encounter
--- OUTSIDE RECORDS SUMMARY | 2025-01-19 13:55 | XMS_ITS | Encounter Summary ---
Author Organization [employer] ([place], [place], [place], [place]) Address [address] [place] [address] Care Team Providers Care Fruit Rancher Name Role Phone Nick Rasmussen PA-C Unavailable [phone] Lena Aguilera APRN Primary Care Provider [phone] Nimisha Nuñez PA-C Unavailable [phone] Encounter Details Date Type Department Care Team (Late st Contact Info) Description 12/18/2024 Orders Only [facility] Neurology - [facility] [address] [place] [address] Provider, [place] [address] Social History Tobacco Use Types [...] Date Vijay rded Speak language other than Kinyarwanda at home Not on file 07/19/2023 Want [...] Description 02/11/2025 10:00 AM EDT Office Visit [facility] Orthopedics - [address] [place] [address] Nick Rasmussen PA-C [address] [place] [address] 08/19/2025 9:30 AM EST Appointment [facility] [address] [place] [address] documented as [...] on filedocumented in this encounter Care Teams Fruit Rancher Relationship Specialty Start Date End Date Lena Aguilera APRN [address] [place] [address] PCP - General Family Medicine 10/28/23 Nick Rasmussen PA-C [address] [place] [address] Orthopedic Surgery 08/07/23 Nimisha Nuñez PA-C [address] [place] [address] Physician Green Marketing Analyst Orthopedic Surgery 02/05/24 documented as of this encounter
--- OUTSIDE RECORDS SUMMARY | 2025-01-19 13:55 | XMS_ITS | Clinical Summary ---
[facility] Organization [facility] Address [address] [place] [address] Care Team Providers Care Field Collector Name Role Phone Provider, No Known Primary [...] EDT - 12/11/2024 5:42 PM EDT Emergency [facility] [address] [place] [address] Abhilash Gonzalez, DO Atypical chest pain (Primary [...] e 04/08/2023 Family and Community Support Answer Onam e Recorded Help with Day-to-Day Activities Not [...] Troponin T 1Hr (12/11/2024 3:23 PM EDT) [facility] HS Troponin T 7 <14 ng/L 12/11/2024 3:48 PM EDT [facility] Troponin T Numeric Delta -2 Abnormal if >/=3 ng/L 12/11/2024 3:48 PM EDT [facility] Blood Line / Unknown 12/11/2024 3: 23 PM EDT 12/11/2024 3:26 PM EDT Narrative [facility] - 12/11/2024 3:48 PM EDT [...] Gonzalez DO LAB BLOOD ORDERABLES Final Result [facility]
[address] [place] [address], * ECG 12 Lead Chest Pain (12/11/2024 3:20 PM EDT) Only the most recent of2 resultswithin the time period is included. Pathologist [facility] QT Interval 428 ms ECG QTC Interval 437 ms ECG 12/11/2024 3:20 PM EDT 12/20/2024 6:01 PM EDT [facility] ECG - 12/20/2024 6:01 PM EDT Test [...] change was found Confirmed by Abhilash Gonzalez ([id number]) on 12/20/2024 6:01:12 PM Referred By: Confirmed [...] change was found Confirmed by Abhilash Gonzalez ([id number]) on 12/20/2024 6:01:12 PM Referred By: Confirmed [...] DO 12/11/2024 3:27 PM EDT Workstation ID: [id number] Narrative 12/11/2024 3:[address] ANGIOGRAM [...] DO 12/11/2024 3:27 PM EDT Workstation ID: [id number] Esteban Pantoja PA-C IMG CT ORDERABLES Final Resu lt * XR Chest 1 View (12/11/2024 2:38 PM EDT) Anatomical Region Laterality Modality Body N/A Radiographic Loretta ging 12/11/2024 3:17 PM EDT Impressions 12/11/2024 3:17 PM EDT Impression: No active disease. Electronically Signed: Seth Spivey MD 12/11/2024 3:17 PM EDT Workstation ID: [id number] Narrative 12/11/2024 3:17 PM EDT XR CHEST [...] MD 12/11/2024 3:17 PM EDT Workstation ID: [id number] Abhilash Gonzalez DO IMG DIAGNOSTIC IMAGING ORDE RABLES Final Result * Veras Top (12/11/2024 2:15 PM EDT) Extra Tube Hold for add-ons. 12/11/2024 2:31 PM EDT [facility] Comment:Auto resulted. Blood Venipuncture / Unknown 12/11/2024 2:15 PM EDT 12/11/2024 2:18 PM EDT Abhilash Stewardjordan DO LAB BLOOD ORDER ONLY Final Result [facility]
[address] [facility] [address] [place] [address], [place] * Gold Top - SST (12/11/2024 2:15 PM EDT) Extra Tube Hold for add-ons. 12/11/2024 2:31 PM EDT [facility] Comment:Auto resulted. Blood Venipuncture / Unknown 12/11/2024 2:15 PM EDT 12/11/2024 2:18 PM EDT Abhilash Stewardjordan DO LAB BLOOD ORDER ONLY Final Result Performing Organization Address City/[facility]/ZIP Co de Phone Number [facility]
[address] [place] [address], [place] * Green Top (Gel) (12/11/2024 2:15 PM EDT) Extra Tube Hold for add-ons. 12/11/2024 2:31 PM EDT [facility] Comment:Auto resulted. Blood Venipuncture / Unknown 12/11/2024 2:15 PM EDT 12/11/2024 2:18 PM EDT Abhilash Stewardseemablossom DO LAB BLOOD ORDER ONLY Final Result [facility]
[address] [facility] [address] [place] [address], [place] * (ABNORMAL) CBC Auto Differential (12/11/2024 2:15 PM EDT) WBC 6.22 3.40 - 10.80 10*3/mm3 12/11/2024 2:21 PM EDT [facility] RBC 4.80 3.77 - 5.28 10*6/mm3 12/11/2024 2:[facility] Hemoglobin 13.4 12.0 - 15.9 g/dL 12/11/2024 2:21 PM [facility] Hematocrit 39.7 34.0 - 46.6 % 12/11/2024 2:21 PM [facility] MCV 82.7 79.0 - 97.0 fL 12/11/2024 2:21 PM [facility] MCH 27.9 26.6 - 33.0 pg 12/11/2024 2:21 PM [facility] MCHC 33.8 31.5 - 35.7 g/dL 12/11/2024 2:21 PM [facility] RDW 12.5 12.3 - 15.4 % 12/11/2024 2:21 PM [facility] RDW-SD 38.1 37.0 - 54.0 fl 12/11/2024 2:21 PM [facility] MPV 9.8 6.0 - 12.0 fL 12/11/2024 2:21 PM [facility] Platelets 206 140 - 450 10*3/mm3 12/11/2024 2:21 PM [facility] Neutrophil % 66.8 42.7 - 76.0 % 12/11/2024 2:21 PM [facility] Lymphocyte % 24.8 19.6 - 45.3 % 12/11/2024 2:21 PM [facility] Monocyte % 4.7(L) 5.0 - 12.0 % 12/11/2024 2:21 PM [facility] Eosinophil % 2.9 0.3 - 6.2 % 12/11/2024 2:21 PM [facility] Basophil % 0.6 0.0 - 1.5 % 12/11/2024 2:21 PM [facility] Immature Grans % 0.2 0.0 - 0.5 % 12/11/2024 2:21 PM [facility] Neutrophils, Absolute 4.16 1.70 - 7.00 10*3/mm3 12/11/2024 2:21 PM EDT [facility] Lymphocytes, Absolute 1.54 0.70 - 3.10 10*3/mm3 12/11/2024 2:21 PM EDT [facility] Monocytes, Absolute 0.29 0.10 - 0.90 10*3/mm3 12/11/2024 2:21 PM EDT [facility] Eosinophils, Absolute 0.18 0.00 - 0.40 10*3/mm3 12/11/2024 2:21 PM EDT [facility] Basophils, Absolute 0.04 0.00 - 0.20 10*3/mm3 12/11/2024 2:21 PM EDT [facility] Immature Grans, Absolute 0.01 0.00 - 0.05 10*3/mm3 12/11/2024 2:21 PM EDT [facility] Blood Venipuncture / Unknown 12/11/2024 2:15 PM EDT 12/11/2024 2:18 PM EDT Abhilash Gonzalez DO LAB BLOOD ORDERABLES Final Result [facility]
[address] [place] [address], [place] * Lavender Top (12/11/2024 2:15 PM EDT) Extra Tube hold for add-on 12/11/2024 2:31 PM EDT [facility] Comment:Auto resulted Blood Venipuncture / Unknown 12/11/2024 2:15 PM EDT 12/11/2024 2:18 PM EDT Abhilash Gonzalez DO LAB BLOOD ORDER ONLY Final Result [facility]
[address] [facility] [address] [place] [address], [place] * Light Blue Top (12/11/2024 2:15 PM EDT) Extra Tube Hold for add-ons. 12/11/2024 2:31 PM EDT [facility] Comment:Auto resulted Blood Venipuncture / Unknown 12/11/2024 2:15 PM EDT 12/11/2024 2:18 PM EDT Abhilash Gonzalez DO LAB BLOOD ORDER ONLY Final Result [facility]
[address] [place] [address], * High Sensitivity Troponin T (12/11/2024 2:15 PM EDT) [facility] HS Troponin T 9 <14 ng/L 12/11/2024 2:35 PM EDT [facility] Blood Venipuncture / Unknown 12/11/2024 2:15 PM EDT 12/11/2024 2:18 PM EDT Abhilash Gonzalez DO LAB BLOOD ORDERABLES Final Result [facility]
[address] [place] [address], * BNP (12/11/2024 2:15 PM EDT) Pathologist [facility] proBNP 136.0 0.0 - 900.0 pg/mL 12/11/2024 2:36 PM EDT [facility] Blood Venipuncture / Unknown 12/11/2024 2:15 PM EDT 12/11/2024 2:18 PM EDT Narrative [facility] - 12/11/2024 2:36 PM EDT [...] BLOOD ORDERABLES Final Result Performing Organization Address City/[facility]/ZIP Co de Phone Number [facility]
[address] [place] [address], * Lipase (12/11/2024 2:15 PM EDT) Pathologist [facility] Lipase 33 13 - 60 U/L 12/11/2024 2:38 PM EDT [facility] Blood Venipuncture / Unknown 12/11/2024 2:15 PM EDT 12/11/2024 2:18 PM EDT Abhilash Gonzalez LAB BLOOD ORDERABLES Final Result Performing Organization Address [facility]/ZIP Co de Phone Number [facility]
[address] [place] [address], * (ABNORMAL) Comprehensive Metabolic Panel (12/11/2024 2:15 PM EDT) Glucose 104(H) 65 - 99 mg/dL 12/11/2024 2:39 PM EDT [facility] BUN 25.6(H) 8.0 - 23.0 mg/dL 12/11/2024 2:39 PM EDT [facility] Creatinine 1.21(H) 0.57 - 1.00 mg/dL 12/11/2024 2:39 PM EDT [facility] Sodium 143 136 - 145 mmol/L 12/11/2024 2:39 PM EDT [facility] Potassium 3.8 3.5 - 5.2 mmol/L 12/11/2024 2:39 PM EDT [facility] Chloride 105 98 - 107 mmol/L 12/11/2024 2:39 PM EDT [facility] CO2 19.9(L) 22.0 - 29.0 mmol/L 12/11/2024 2:39 PM EDT [facility] Calcium 10.6(H) 8.6 - 10.5 mg/dL 12/11/2024 2:39 PM T [facility] Total Protein 7.3 6.0 - 8.5 g/dL 12/11/2024 2:39 PM EDT [facility] Albumin 4.4 3.5 - 5.2 g/dL 12/11/2024 2:39 PM EDT [facility] ALT (SGPT) 27 1 - 33 U/L 12/11/2024 2:39 PM T [facility] AST (SGOT) 24 1 - 32 U/L 12/11/2024 2:39 PM T [facility] Alkaline Phosphatase 92 39 - 117 U/L 12/11/2024 2:39 PM [facility] Total Bilirubin 0.3 0.0 - 1.2 mg/dL 12/11/2024 2:39 [facility] Globulin 2.9 gm/dL 12/11/2024 2:39 PM [facility] A/G Ratio 1.5 g/dL 12/11/2024 2:39 PM [facility] BUN/Creatinine Ratio 21.2 7.0 - 25.0 12/11/2024 2:39 PM [facility] Anion Gap 18.1(H) 5.0 - 15.0 mmol/L 12/11/2024 2:39 PM [facility] eGFR 51.1(L) >60.0 mL/min/1.7 3 12/11/2024 2:39 PM [facility] Blood Venipuncture / Unknown 12/11/2024 2:15 PM EDT 12/11/2024 2:18 PM EDT [facility] - 12/11/2024 2:39 PM EDT GFR [...] not include race as a factor us Abhilahs Gonzalez DO LAB BLOOD ORDERABLES Final Result [facility]
[address] [facility] [address] [place] [address], from Last 3 Months Insurance Care Teams Field Collector Relationship Specialty Start Date End Date [place] [address] PCP - General 12/11/24
--- OUTSIDE RECORDS SUMMARY | 2025-01-19 13:56 | XMS_ITS | Encounter Summary ---
Author Organization [employer] ([place], [place], [place], [place]) Address [address] [place] [address] Care Team Providers Care Weed Science Research Technician Name Role Phone Krystyna Elliott [facility] Primary Care Provider Nick Rasmussen PA-C Unavailable [phone] Lena Aguilera APRN Primary Care Provider [phone] Nimisha Nuñez PA-C Unavailable [phone] Encounter Details Date Type Department Care Team (Late st Contact Info) Description 12/17/2019 Transcribed Document [facility] [address] [place] [address] Provider, Audra Hargrove MD Social History Tobacco Use Types Packs/Day Years Used Date Smoking Tobacco: Never Assessed Comments Unknown Sex and Gender Information Value Date Recorded Sex Assigned at Not on file Legal Sex Female 6:57 PM CDT Gender Identity Not on file Sexual Orientation Not on file documented as of this encounter Miscellaneous Notes * Cerner Conversion Note - [facility] Beena Ogden MD - 12/17/2019 10:59 AM EDT DATE OF PROCEDURE: 12/17/2019 SURGEON: Rell Del Cid MD PREOPERATIVE DIAGNOSIS: Right knee medial meniscus 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 POSTOPERATIVE DIAGNOSIS: Right knee medial meniscus 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 PROCEDURE PERFORMED: Right knee diagnostic arthroscopy with partial medial meniscectomy. DATABASE MARKETING ANALYST: Mary Valencia CFA ANESTHESIA: General. ESTIMATED BLOOD LOSS: Minimal. COMPLICATIONS: None. DRAINS: None. CONDITION: Stable to recovery room. OPERATIVE INDICATIONS: nAisa is a very pleasant 54-year-old female with [...] tolerated the procedure well without any complications. /[id number] Rell Sylvain Del Cid MD ASC/AQ / ASC / MODL /[id number] Electronically signed by Audra Woodruff Conversion Gas Engine Operator Generators Cerner at 11/21/2022 11:16 AM CDT documented in this encounter Plan of Treatment Upcoming Encounters Date Type Department Care Team (Late st Contact Info) Description 02/11/2025 10:00 AM EDT Office Visit [facility] Orthopedics - [address] [place] [address] Nick Rasmussen PA-C [address] [place] [address] 08/19/2025 9:30 AM EST Appointment [facility] [address] [facility] [address] [place] [address] documented as of this encounter Visit Diagnoses Not on filedocumented in this encounter Care Teams Weed Science Research Technician Relationship Specialty Start Date End Date Woodleafkiara [facility] At [address] [place] [address] PCP - General 09/19/22 10/27/23 Lena Aguilera APRN [address] [place] [address] PCP - General Family Medicine 10/28/23 Nick Rasmussen PA-C [address] [place], [place] [id number] Orthopedic Surgery 08/07/23 Nimisha Nuñez PA-C [address] [place] [address] Physician Outside Sales Representative Insurance Orthopedic Surgery 02/05/24 documented as of this encounter
--- OUTSIDE RECORDS SUMMARY | 2025-01-19 13:56 | XMS_ITS | Encounter Summary ---
Author Organization [employer] ([place], [place], [place], [place]) Address [address] [place] [address] Care Team Providers Care Blending Operator Name Role Phone Krystnya Elliott [facility] Primary Care Provider Nick Rasmussen PA-C Unavailable [phone] Lena Aguilera APRN Primary Care Provider [phone] Nimisha Nuñez PA-C Unavailable [phone] Encounter Details Date Type Department Care Team (Late st Contact Info) Description 12/17/2019 Transcribed Document [facility] [address] [place] [address] Provider, Audra Hargrove MD Social History Tobacco Use Types Packs/Day Years Used Date Smoking Tobacco: Never Assessed Comments Unknown Sex and Gender Information Value Date Recorded Sex Assigned at Not on file Legal Sex Female 6:57 PM CDT Gender Identity Not on file Sexual Orientation Not on file documented as of this encounter Miscellaneous Notes * Cerner Conversion Note - [facility] Beena ProviderMD - 12/17/2019 10:36 AM EDT [facility] Main OR IntraOp Summary Primary Physician: DRAGAN FLAHERTY MD-ORT Finalized Date/Time: 12/17/19 11:02:35 Pt. Name: ANISA KATZISE /Sex: 1965 Female Med Rec #: [id number] Physician: DRAGAN FLAHERTY MD-ORT Financial #: [id number] Pt. Type: O Room/Bed: [facility]/4 Admit/Disch: 12/17/19 04:47:00 - Institution: [facility] Case Attendance Entry 1 Entry 2 Entry 3 Case Attendee DRAGAN FLAHERTY WICKER, KAREN KIM, BORING INSPECTOR Esteban Abbasi RN MD-ORT Role Performed Surgeon/Proceduralist, BORING INSPECTOR/Nurse Ash Conveyor Operator Sushi Chef, First First Time In 12/17/19 09:22:00 12/17/19 [...] Kian Ornelas, Scrub Assist Tech Role Performed Sushi Chef, Second Biofuels Production Technician, First Scrub, Second Time In 12/17/19 09:22:00 [...] [facility] IntraOp Case Attendance Audit 12/17/19 10:06:09 Triage Assistant: [id number] Modifier: [id number] 1 <*> Procedure Knee Arthroscopy 2 <*> Procedure Knee Arthroscopy 3 <*> Procedure Knee Arthroscopy 4 <*> Procedure Knee Arthroscopy 5 <*> Procedure Knee Arthroscopy 6 <*> Procedure Knee Arthroscopy 7 <*> Procedure Knee Arthroscopy 8 <*> Procedure Knee Arthroscopy 12/17/19 10:05:50 Triage Assistant: [id number] Modifier: [id number] 1 <+> Time Out 1 <*> Procedure [...] 8 <*> Procedure Knee Arthroscopy 12/17/19 09:38:00 Triage Assistant: [id number] Modifier: [id number] 1 <*> Procedure Knee Arthroscopy 2 <*> [...] 8 <*> Procedure Knee Arthroscopy 12/17/19 09:37:09 Triage Assistant: [id number] Modifier: [id number] 1 <+> Time In 1 <*> Procedure [...] [facility] Intra[facility] Case Times Audit 12/17/19 10:04:48 Triage Assistant: [id number] Modifier: [id number] <+> 1 Out Room Time <+> 1 Stop Time <+> 1 Stop Time 12/17/19 09:37:54 Triage Assistant: [id number] Modifier: [id number] <+> 1 Start Time [facility] IntraOp Communication [...] [facility] Intra[facility] Counts Verification Audit 12/17/19 10:06:10 Triage Assistant: [id number] Modifier: [id number] 1 <*> Procedure Knee Arthroscopy, Knee Arthroscopy 12/17/19 10:05:53 Triage Assistant: [id number] Modifier: [id number] 1 <*> Procedure Knee Arthroscopy [facility] Intra[facility] [...] [facility] Intra[facility] Counts Final Audit 12/17/19 10:06:11 Triage Assistant: [id number] Modifier: [id number] 1 <*> Procedure Knee Arthroscopy, Knee Arthroscopy 12/17/19 10:05:55 Triage Assistant: [id number] Modifier: [id number] 1 <*> Procedure Knee Arthroscopy [facility] IntraOp [...] RN 12/17/19 09:44:01 [facility] IntraOp General Case Coil Repair Technician 1 Case Information OR OR 10 [facility] [...] 0.5% 30ml vial Xylocaine 0.5% w/ - [id number] epinephrine 1:200,000 50ml vial - [id number] Combo Med List 1 - Combo Med [...] Comments: ZOYA LEG OSBORN ON RIGHT LEG; Yovigo LEG OSBORN ON LEFT SIDE [facility] IntraOp Patient Positioning Audit 12/17/19 10:06:11 Triage Assistant: [id number] Modifier: [id number] 1 <*> Procedure Knee Arthroscopy, Knee Arthroscopy 12/17/19 10:05:54 Triage Assistant: [id number] Modifier: [id number] 1 <*> Procedure 1 <*> Procedure Knee [...] [facility] Sign In Audit 12/17/19 09:52:16 Triage Assistant: [id number] Modifier: [id number] <+> 1 Medication Checks Completed <+> 1 [...] [facility] Intra[facility] Skin Prep Audit 12/17/19 10:06:11 Triage Assistant: [id number] Modifier: [id number] 1 <*> Procedure Knee Arthroscopy, Knee Arthroscopy 12/17/19 10:05:55 Triage Assistant: [id number] Modifier: [id number] 1 <*> Procedure Knee Arthroscopy [facility] IntraOp [...] [facility] IntraOp Surgical Procedures Audit 12/17/19 10:06:46 Triage Assistant: [id number] Modifier: [id number] 1 <*> Procedure Knee Arthroscopy 1 <*> [...] Padded Under Cuff Applied By Mary Valencia, E Commerce Manager Removed By Mary Valencia, E Commerce Manager Times Start Time 12/17/19 09:36:00 Stop Time 12/17/19 09:54:00 Last Modified By: Esteban Abbasi RN 12/17/19 10:08:40 Case Comments <None> Finalized By: Flor Tapia RN Document Signatures Signed By: Esteban Abbasi RN 12/17/19 10:09 Flor Tapia RN 12/17/19 11:02 Unfinalized History Date/Time Username Reason for Unfinalizing Freetext Reason for Unfinalizing 12/17/19 10:51 [id number] Correct Documentation documented in this encounter Plan of Treatment Upcoming Encounters Date Type Department Care Team (Late st Contact Info) Description 02/11/2025 10:00 AM EDT Office Visit [facility] Orthopedics - [address] [place] [address] Nick Rasmussen PA-C [address] [place] [address] 08/19/2025 9:30 AM EST Appointment [facility] [address] [facility] [address] [place] [address] documented as of this encounter Visit Diagnoses Not on filedocumented in this encounter Care Teams Blending Operator Relationship Specialty Start Date End Date [facility] [address] [address] PCP - General 09/19/22 10/27/23 Lena Aguilera, CUFF SLITTER [address] [place] [address] PCP - General Family Medicine 10/28/23 Nick Rasmussen PA-C [address] [place] [address] Orthopedic Surgery 08/07/23 Nimisha Nuñez PA-C [address] [place] [address] Physician Biofuels Production Technician Orthopedic Surgery 02/05/24 documented as of this encounter
--- OUTSIDE RECORDS SUMMARY | 2025-01-19 13:56 | XMS_ITS | Encounter Summary ---
Author Organization [employer] ([place], [place], [place], [place]) Address [address] [place] [address] Care Team Providers Care Pacs Administrator Name Role Phone Krystyna Elliott [facility] Primary Care Provider Nick Rasmussen PA-C Unavailable [phone] Lena Aguilera APRN Primary Care Provider [phone] Nimisha Nuñez PA-C Unavailable [phone] Encounter Details Date Type Department Care Team (Late st Contact Info) Description 12/17/2019 Transcribed Document [address] [address] Provider, Audra Hargrove MD Social History Tobacco Use Types Packs/Day Years Used Date Smoking Tobacco: Never Assessed Comments Unknown Sex and Gender Information Value Date Recorded Sex Assigned at Not on file Legal Sex Female 6:57 PM CDT Gender Identity Not on file Sexual Orientation Not on file documented as of this encounter Miscellaneous Notes * Cerner Conversion Note - [facility] Beena ProviderMD - 12/17/2019 12:22 PM EDT [facility] [address] [place] [address] ANISA KATZISE :1965 Visit Time:12/17/2019 What to do next Your Diagnosis Unilateral primary osteoarthritis, right knee, Unilateral primary osteoarthritis, right knee Instructions From Your Care Team You have a prescription for Shallotte 7.5mg 1 tablet every 6 hours as needed for pain, your next dose is due after 4:30pm refer to discharge orders/orthopedic procedures form for detailed instructions. Follow-Up Appointments Follow Up with DRAGAN FLAHERTY MD-ORT When 12/30/2019 02:15 PM EDT Comments Appointment has been made Where: [address] [place] [address]- Medications What How Much When Instructions Next [...] and water are not available, use hand graduate research assistant. ? Change your dressing as told by [...] medicines you take. General instructions ??? Take hgqi-hug-dbpolmz and prescription medicines only as told by [...] fried or sweet foods. ? Take an albs-gxv-ulcmavs or prescription medicines for constipation. ??? Do [...] 01/04/2006 Document Revised: 04/30/2018 Document Reviewed: 04/30/2018 [employer] Interactive Patient Education ?? 2020 [employer]uddies. acetaminophen and hydrocodone (a SEET a MIN oh fen and imer drokiara KOE done) Hycet, Lorcet, Shallotte, Verdrocet, Vicodin, Xodol, Zamicet What is the [...] may report side effects to FDA at 2-850-BAO-5856. What other drugs will affect acetaminophen and [...] affect acetaminophen and hydrocodone, including prescription and txzg-ekw-tyzpfae medicines, vitamins, and herbal products. Not all [...] to ensure that the information provided by [employer]. ('[employer]') is accurate, up-to-date, and complete, but no guarantee is made to that effect. Drug information contained herein may be time sensitive. [employer] information has been compiled for use by healthcare practitioners and consumers in the [place] and therefore [employer] does not warrant that uses outside of the [place] are appropriate, unless specifically indicated otherwise. [employer]'s drug information does not endorse drugs, diagnose patients or recommend therapy. [employer] drug information is an informational resource designed [...] effective or appropriate for any given patient. [employer] does not assume any responsibility for any aspect of healthcare administered with the aid of information [employer] provides. The information contained herein is not intended to cover all possible uses, directions, precautions, warnings, drug interactions, allergic reactions, or adverse effects. If you have questions about the drugs you are taking, check with your doctor, nurse or pharmacist. Copyright 5639-0126 [employer]. Version: 16.. Revision Date: 07/22/2019. acetaminophen and hydrocodone (a SEET a MIN oh fen and imer droe KOE done) Hycet, Lorcet, Shallotte, Verdrocet, Vicodin, Xodol, Zamicet What is the [...] may report side effects to FDA at 3-366-FZT-6470. What other drugs will affect acetaminophen and [...] affect acetaminophen and hydrocodone, including prescription and jbkp-cnx-itrjplv medicines, vitamins, and herbal products. Not all [...] to ensure that the information provided by [employer]. ('[employer]') is accurate, up-to-date, and complete, but no guarantee is made to that effect. Drug information contained herein may be time sensitive. [employer] information has been compiled for use by healthcare practitioners and consumers in the [place] and therefore [employer] does not warrant that uses outside of the [place] are appropriate, unless specifically indicated otherwise. [employer] drug information does not endorse drugs, diagnose patients or recommend therapy. [employer] drug information is an informational resource designed [...] effective or appropriate for any given patient. [employer] does not assume any responsibility for any aspect of healthcare administered with the aid of information [employer] provides. The information contained herein is not intended to cover all possible uses, directions, precautions, warnings, drug interactions, allergic reactions, or adverse effects. If you have questions about the drugs you are taking, check with your doctor, nurse or pharmacist. Copyright 2066-1780 [employer]. Version: 16.01. Revision Date: 07/22/2019. Emergency Awareness [...] Assistance with quitting is available by contacting 3-740-VPEB-NOW. This is a free resource providing counseling, [...] range between ( 1.0 and 7.0 ) Simpson #: 0.41 K/uL -- Normal range between ( 0.24 and 0.82 ) Eos #: 0.25 K/uL -- Normal range between ( 0.04 and 0.54 ) Simpson %: 7.5 % -- Normal range between [...] was given the opportunity to ask questions. Patient/Manager Monitoring Name: Patient/Manager Monitoring Signature: Relationship to Patient: Clinician/Hospital Manager Monitoring Signature: Date: documented in this encounter Plan of Treatment Upcoming Encounters Date Type Department Care Team (Late st Contact Info) Description 02/11/2025 10:00 AM EDT Office Visit [facility] Orthopedics - [address] [place] [place] [address] Nick Rasmussen PA-C [address] [place] [address] 08/19/2025 9:30 AM EST Appointment [facility] [address] [facility] [address] [place] [address] documented as of this encounter Visit Diagnoses Not on filedocumented in this encounter Care Teams Pacs Administrator Relationship Specialty Start Date End [place] [address] PCP - General 09/19/22 10/27/23 Lena Aguilera APRN [address] [place] [address] PCP - General Family Medicine 10/28/23 Nick Rasmussen PA-C [address] [place] [address] Orthopedic Surgery 08/07/23 Nimisha Nuñez PA-C [address] [place] [address] Physician Director Of Infection Control Orthopedic Surgery 02/05/24 documented as of this encounter
--- OUTSIDE RECORDS SUMMARY | 2025-01-19 13:56 | XMS_ITS | Encounter Summary ---
Author Organization [email or web address] ([place], [place], [place], [place]) Address [address] [place] [address] Care Team Providers Care Water Taxi Ferry Operator Name Role Phone Krystyna [facility] Primary Care Provider Nick Rasmussen PA-C Unavailable [phone] Lena Aguilera APRN Primary Care Provider [phone] Nimisha Nuñez PA-C Unavailable [phone] Encounter Details Date Type Department Care Team (Late st Contact Info) Description 12/17/2019 Transcribed Document [address] [address] Provider, Audra Hargrove MD Social History Tobacco Use Types Packs/Day Years Used Date Smoking Tobacco: Never Assessed Comments Unknown Sex and Gender Information Value Date Recorded Sex Assigned at Not on file Legal Sex Female 6:57 PM CDT Gender Identity Not on file Sexual Orientation Not on file documented as of this encounter Miscellaneous Notes * Cerner Conversion Note - [facility] Beena ProviderMD - 12/17/2019 12:37 PM EDT [facility] [address] [place] [address] ANISA KATZISE :1965 Visit Time:12/17/2019 What to do next Your Diagnosis Unilateral primary osteoarthritis, right knee, Unilateral primary osteoarthritis, right knee Instructions From Your Care Team You have a prescription for Solon 7.5mg 1 tablet every 6 hours as needed for pain, your next dose is due after 4:30pm refer to discharge orders/orthopedic procedures form for detailed instructions. Follow-Up Appointments Follow Up with DRAGAN FLAHERTY MD-ORT When 12/30/2019 02:15 PM EDT Comments Appointment has been made Where: [address] [place] [address]- Medications What How Much When Instructions Next [...] and water are not available, use hand wheat combine driver. ? Change your dressing as told by [...] medicines you take. General instructions ??? Take jptc-rfz-jybdopb and prescription medicines only as told by [...] fried or sweet foods. ? Take an gvsr-lqp-twubtsw or prescription medicines for constipation. ??? Do [...] 01/04/2006 Document Revised: 04/30/2018 Document Reviewed: 04/30/2018 [employer] Interactive Patient Education ?? 2020 [employer]. acetaminophen and hydrocodone (a SEET a MIN oh fen and imer drokiara KOE done) Hycet, Lorcet, Solon, Verdrocet, Vicodin, Xodol, Zamicet What is the [...] may report side effects to FDA at 8-193-CAY-0340. What other drugs will affect acetaminophen and [...] affect acetaminophen and hydrocodone, including prescription and wnab-jbe-evepyxs medicines, vitamins, and herbal products. Not all [...] to ensure that the information provided by [employer]. ('Multum') is accurate, up-to-date, and complete, but no guarantee is made to that effect. Drug information contained herein may be time sensitive. [employer] information has been compiled for use by healthcare practitioners and consumers in the [place] and therefore [employer] does not warrant that uses outside of the [place] are appropriate, unless specifically indicated otherwise. [employer]'s drug information does not endorse drugs, diagnose patients or recommend therapy. [employer] drug information is an informational resource designed [...] effective or appropriate for any given patient. [employer] does not assume any responsibility for any aspect of healthcare administered with the aid of information [employer] provides. The information contained herein is not intended to cover all possible uses, directions, precautions, warnings, drug interactions, allergic reactions, or adverse effects. If you have questions about the drugs you are taking, check with your doctor, nurse or pharmacist. Copyright 6187-0246 [employer]. Version: 16.. Revision Date: 07/22/2019. acetaminophen and hydrocodone (a SEET a MIN oh fen and imer droe KOE done) Hycet, Lorcet, Solon, Verdrocet, Vicodin, Xodol, Zamicet What is the [...] may report side effects to FDA at 9-126-DHN-8314. What other drugs will affect acetaminophen and [...] affect acetaminophen and hydrocodone, including prescription and ansb-man-rvnrdxq medicines, vitamins, and herbal products. Not all [...] to ensure that the information provided by [employer]. ('Multum') is accurate, up-to-date, and complete, but no guarantee is made to that effect. Drug information contained herein may be time sensitive. [employer] information has been compiled for use by healthcare practitioners and consumers in the [place] and therefore [employer] does not warrant that uses outside of the [place] are appropriate, unless specifically indicated otherwise. [employer] drug information does not endorse drugs, diagnose patients or recommend therapy. [employer]) drug information is an informational resource designed [...] effective or appropriate for any given patient. [employer] does not assume any responsibility for any aspect of healthcare administered with the aid of information [employer] provides. The information contained herein is not intended to cover all possible uses, directions, precautions, warnings, drug interactions, allergic reactions, or adverse effects. If you have questions about the drugs you are taking, check with your doctor, nurse or pharmacist. Copyright 8772-4382 [employer]. Version: 16.01. Revision Date: 07/22/2019. Emergency Awareness [...] Assistance with quitting is available by contacting 1-118-URZS-NOW. This is a free resource providing counseling, [...] range between ( 1.0 and 7.0 ) Lea #: 0.41 K/uL -- Normal range between ( 0.24 and 0.82 ) Eos #: 0.25 K/uL -- Normal range between ( 0.04 and 0.54 ) Lea %: 7.5 % -- Normal range between [...] was given the opportunity to ask questions. Patient/Carry Out Clerk Name: Patient/Carry Out Clerk Signature: Relationship to Patient: Clinician/Hospital Carry Out Clerk Signature: Date: documented in this encounter Plan of Treatment Upcoming Encounters Date Type Department Care Team (Late st Contact Info) Description 02/11/2025 10:00 AM EDT Office Visit [facility] Orthopedics - [address] [place] [phone] Nick Rasmussen PA-C [address] [place] [address] 08/19/2025 9:30 AM EST Appointment [facility] [address] [facility] [address] [place] [address] documented as of this encounter Visit Diagnoses Not on filedocumented in this encounter Care Teams Water Taxi Ferry Operator Relationship Specialty Start Date End Date [facility] [place] [address] PCP - General 09/19/22 10/27/23 Lena Aguilera APRN [address] [place] [address] PCP - General Family Medicine 10/28/23 Nick Rasmussen PA-C [address] [place] [address] Orthopedic Surgery 08/07/23 Nimisha Nuñez PA-C [address] [place] [address] Physician Senior Oracle Soa Developer Orthopedic Surgery 02/05/24 documented as of this encounter
--- OUTSIDE RECORDS SUMMARY | 2025-01-19 13:56 | XMS_ITS | Encounter Summary ---
Author Organization [employer] ([place], [place], [place], [place]) Address [address] [place] [address] Care Team Providers Care Bottom Liner Name Role Phone Krystyna [facility] Primary Care Provider Nick Rasmussen PA-C Unavailable Lena Aguilera APRN Primary Care Provider [phone] Nimisha Nuñez PA-C Unavailable [phone] Encounter Details Date Type Department Care Team (Late st Contact Info) Description 12/17/2019 Transcribed Document [facility] [place] [address] [place] [address] Provider, Audra Hargrove MD Social [...] KATZISE /Sex: 1965 Female Med Rec #: [id number] Physician: DRAGAN FLAHERTY MD-ORT Financial #: [id number] Pt. Type: O Room/Bed: [facility]/4 Admit/Disch: 12/17/19 04:47:00 - Institution: [facility] Main OR PostOp Case Times Entry 1 In PACU II 12/17/19 10:40:00 Ready for PACU II 12/17/19 11:48:00 Discharge Discharge from PACU 12/17/19 11:48:00 II Last Modified By: Erin Orta RN 12/17/19 11:48:22 [facility] Main OR PostOp Case Times Audit 12/17/19 11:48:22 Superintendent Production: [email or web address] Modifier: [email or web address] <+> Ready for PACU II Discharge 1 <*> In PACU II 12/17/19 10:00:00 1 <+> Discharge from PACU II Finalized By: Erin Orta RN Document Signatures Signed By: Erin Orta RN 12/17/19 11:48 documented in this encounter Plan of Treatment Upcoming Encounters Date Type Department Care Team (Late st Contact Info) Description 02/11/2025 10:00 AM EDT Office Visit [facility] Orthopedics - [address] [place] [address] Nick Rasmussen PA-C [address] [place] [address] 08/19/2025 9:30 AM EST Appointment [facility] [address] [facility] [address] [place] [address] documented as of this encounter Visit Diagnoses Not on filedocumented in this encounter Care Teams Bottom Liner Relationship Specialty Start Date End Date Krystyna Elliott [facility] At [address] [address] PCP - General 09/19/22 10/27/23 Lena Aguilera, KALIN [address] [address] PCP - General Family Medicine 10/28/23 Nick Rasmussen PA-C [address] [place], [place] [id number] Orthopedic Surgery 08/07/23 Nimisha Nuñez PA-C [address] [place], [place] [id number] Physician Forestry Support Specialist Orthopedic Surgery 02/05/24 documented as of this encounter
--- OUTSIDE RECORDS SUMMARY | 2025-01-19 13:56 | XMS_ITS | Encounter Summary ---
Author Organization [employer] ([place], [place], [place], [place]) Address [address] [place] [address] Care Team Providers Care Venetian Blind Cleaner And Repairer Name Role Phone Krystyna Elliott [facility] Primary Care Provider Nick Rasmussen PA-C Unavailable [phone] Lena Aguilera APRN Primary Care Provider [phone] Nimisha Nuñez PA-C Unavailable [phone] Encounter Details Date Type Department Care Team (Late st Contact Info) Description 12/03/2019 Transcribed Document [facility] Radiology [address] [place] [address] Provider, Audra Hargrove MD Social History Tobacco Use Types Packs/Day Years Used Date Smoking Tobacco: Never Assessed Comments Unknown Sex and Gender Information Value Date Recorded Sex Assigned at Not on file Legal Sex Female 6:57 PM CDT Gender Identity Not on file Sexual Orientation Not on file documented as of this encounter Miscellaneous Notes * Cerner Conversion Note - [facility] Beena ProviderMD - 12/03/2019 9:50 AM EDT Patient: ANISA KATZ Age: 54 Years Sex: Female : 1965 Chief Complaint Right Knee Pain Primary Care Provider NEYDA JOINER (REF), CEMENT RAILROAD CAR LOADER-FAM History of Present Illness This patient is [...] # 1.08 K/uL (Low) 12/03/2019 08:43 EDT [place] % 7.5 % 12/03/2019 08:43 EDT [place] # 0.41 K/uL 12/03/2019 08:43 EDT Eos [...] Visit [facility] Orthopedics - [address] [place] [address] Nick Rasmussen PA-C [address] [place] [address] 08/19/2025 9:30 AM EST Appointment [facility] Breast [facility] [address] [facility] [address] [place] [address] documented as of this encounter Visit Diagnoses Not on filedocumented in this encounter Care Teams Venetian Blind Cleaner And Repairer Relationship Specialty Start Date End Date [facility] At [address] [id number] PCP - General 09/19/22 10/27/23 Lena Aguilera, TEST CENTER MANAGER [address] [place] [address] PCP - General Family Medicine 10/28/23 Nick Rasmussen PA-C [address] [place] [address] Orthopedic Surgery 08/07/23 Nimisha Nuñez PA-C [address] [place] [address] Physician Contract Coordinator Orthopedic Surgery 02/05/24 documented as of this encounter
--- OUTSIDE RECORDS SUMMARY | 2025-01-19 13:56 | XMS_ITS | Encounter Summary ---
Author Organization [employer] ([place], [place], [place], [place]) Address [address] [place] [address] Care Team Providers Care Fruit And Vegetable Inspector Name Role Phone Krystyna Elliott [facility] Primary Care Provider Nick Rasmussen PA-C Unavailable [phone] Lena Aguilera APRN Primary Care Provider [phone] Nimisha Nuñez PA-C Unavailable [phone] Encounter Details Date Type Department Care Team (Late st Contact Info) Description 12/17/2019 Transcribed Document [facility] [address] [place] [address] Provider, Audra Hargrove MD Social History Tobacco Use Types Packs/Day Years Used Date Smoking Tobacco: Never Assessed Comments Unknown Sex and Gender Information Value Date Recorded Sex Assigned at Not on file Legal Sex Female 6:57 PM CDT Gender Identity Not on file Sexual Orientation Not on file documented as of this encounter Miscellaneous Notes * Cerner Conversion Note - [facility] Beena ProviderMD - 12/17/2019 9:10 AM EDT Pre Procedure Adult Entered On: 12/17/2019 8:16 EDT Performed On: 12/17/2019 8:10 EDT by Paola Lacy RN Height and Weight, Clinical Dosing Height Source : Stated Height Entry Format : [place] Height, Feet : 5 ft(Converted to: 152 cm, 60 Inch) Height, Inches : 3 Inch(Converted to: 0 ft 3 Inch, 7.62 cm) Clinical Height : 160.02 cm Weight Source : Standing scale Weight Entry Format : [place] Clinical Dosing Weight : 101.36 kg Weight, Pounds : 223 lb Body Surface Area (BSA) : 2.03 m2 Body Mass Index : 39.6 kg/m2 (HI) [place] Body Weight : 52 kg Paola Lacy [...] Where was the COVID-19 Testing completed? : [facility] Where are the test results? : [...] Paola Lacy RN - 12/17/2019 8:10 EDT [place] Suicide Severity Rating Scale (C-SSRS) CSSRS Past [...] Obtained From : Patient Primary Language : Frisian Preferred Communication Mode : Verbal Communication Barrier : None Objects to Sharing Info w Family : No Currently Lactating : No Status : Hysterectomy aPola Lacy RN - 12/17/2019 8:10 EDT Vital [...] Friction and Shear : No apparent problem Rsahi Score : 21 Rashi Contributing Risk Factors [...] Scale Risk Level : 25-45 Medium Risk [place] Fall Interventions : Adequate lighting, Bed in [...] the text rendition version of the form. [place] Coma Cosme Best Motor Response : Obey commands Cosme Best Verbal Response : Oriented [place] Eye Opening Response : Spontaneous [place] Coma Score : 15 Paola Lacy RN - 12/17/2019 8:10 EDT documented in this encounter Plan of Treatment Upcoming Encounters Date Type Department Care Team (Late st Contact Info) Description 02/11/2025 10:00 AM EDT Office Visit [facility] Orthopedics - [address] [place] [address] Nick Rasmussen PA-C [address] [place] [address] 08/19/2025 9:30 AM EST [facility]ointment [facility] [address] [facility] [address] [place] [address] documented as of this encounter Visit Diagnoses Not on filedocumented in this encounter Care Teams Fruit And Vegetable Inspector Relationship Specialty Start Date End Date [facility] [place] [address] PCP - General 09/19/22 10/27/23 Lena Aguilera APRN [address] [place] [address] PCP - General Family Medicine 10/28/23 Nick Rasmussen PA-C [address] [place] [address] Orthopedic Surgery 08/07/23 Nimisha Nuñez PA-C [address] [place], [place] [id number] Physician Water Filterer Helper Orthopedic Surgery 02/05/24 documented as of this encounter
--- OUTSIDE RECORDS SUMMARY | 2025-01-19 13:56 | XMS_ITS | Clinical Summary ---
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 Name Role Phone Lena Aguilera APRN Primary Care Physician [phone] Conditions or Problems Problem Name Problem Code [...] [BMI] 32.0-32.9, adult Urinary incontinenc e, mild 318829212 (SNOMED CT) 10/29 Active 10/29 Lena Aguilera APRN Urinary incontinence Body mass index (BMI) 32.0-32.9; adult Z68.32 (ICD-10-CM ) 10/29 Removed 10/29 Lena Joneswell CHARTERED ACCOUNTANT Body mass index [BMI] 32.0-32.9, adult Body mass index (BMI) 33.0-33.9; adult Z68.33 (ICD-10-CM ) 07/31 Correction 07/31 Lena Joneswell CHARTERED ACCOUNTANT Body mass index [BMI] 33.0-33.9, adult Sinusitis 92469182 (SNOMED CT) 10/29 Inactive 10/29 Lena Joneswell CHARTERED ACCOUNTANT Sinusitis [facility] Lack of physical exercise Z72.3 [...] [BMI] 33.0-33.9, adult Followup of lab tests 420357883 (SNOMED CT) 07/31 Active 07/31 Lenajose JonesWillymike GAGNON Follow-up status Body mass index (BMI) 33.0-33.9; adult Z68.33 (ICD-10-CM ) 07/25 Removed 07/25 Lena Jonesmike GAGNON Body mass index [BMI] 33.0-33.9, adult Body mass index (BMI) 33.0-33.9; adult Z68.33 (ICD-10-CM ) Correction Lenajose JonesWillymike GAGNON Body mass index [BMI] 33.0-33.9, adult Prediabetes 070387681 (SNOMED CT) 2020 Active 07/25 Lena Aguilera APRN Prediabetes Joint pain 34607599 (SNOMED CT) 07/25 Active 07/25 Lena Aguilera CHARTERED ACCOUNTANT Pain of joint Body mass index (BMI) 33.0-33.9; adult Z68.33 (ICD-10-CM ) Removed Bianka Vania CHARTERED ACCOUNTANT Body mass index [BMI] 33.0-33.9, adult Influenza 6984084 (SNOMED CT) Active Bianka Vania CHARTERED ACCOUNTANT Influenza Body mass index (BMI) 33.0-33.9; adult Z68.33 (ICD-10-CM ) 01/24 Correction 01/24 Bianka Vania CHARTERED ACCOUNTANT Body mass index [BMI] 33.0-33.9, adult Body aches 43144144 (SNOMED CT) Active Bianka Vania CHARTERED ACCOUNTANT Generalized aches and pains Body mass index (BMI) 33.0-33.9; adult Z68.33 (ICD-10-CM ) 01/24 Removed 01/24 Lena Aguilera CHARTERED ACCOUNTANT Body mass index [BMI] 33.0-33.9, adult Body mass index (BMI) 34.0-34.9; adult Z68.34 (ICD-10-CM ) 07/10 Correction 07/10 Lena Aguilera CHARTERED ACCOUNTANT Body mass index [BMI] 34.0-34.9, adult Body [...] index [BMI] 38.0-38.9, adult Colon cancer screening 038831777 (SNOMED CT) 10/27 Active 10/27 Gavin Plascencia MD Screening for malignant neoplasm of colon Mammographi c screening for breast cancer 20339227 (SNOMED CT) 10/27 Active 10/27 Gavin Plascencia MD Screening mammography Exposure to COVID-19 coronavirus 439409890 (SNOMED CT) 07/10 Active 07/10 Lena Aguilera [...] [BMI] 19.9 or less, adult Liver lesion 329440114 (SNOMED CT) 12/28 Active 12/28 Govind Dodson APRN Lesion of liver Abdominal pain, right upper quadrant 305302969 (SNOMED CT) 12/15 Active 12/15 Paola Fuller MA Right upper quadrant pain Diarrhea 97667878 (SNOMED CT) 12/15 Active 12/15 Paola Fuller MA Diarrhea Nausea and vomiting 49378068 (SNOMED CT) 12/15 Active 12/15 Paola Fuller MA Nausea and vomiting Body mass index (BMI) 19 or less; adult Z68.1 (ICD-10-CM ) 10/21 Removed 10/21 Govind Dodson CHARTERED ACCOUNTANT Body mass index [BMI] 19.9 or less, adult Body mass index (BMI) 39.0-39.9; adult Z68.39 (ICD-10-CM ) 09/08 Correction 09/08 Govind Dodson CHARTERED ACCOUNTANT Body mass index [BMI] 39.0-39.9, adult Vaginal lesion 920361021 (SNOMED CT) 10/21 Active 10/21 Govind Dodson CHARTERED ACCOUNTANT Vaginal lesion Nausea and vomiting 64733987 (SNOMED CT) 10/21 Active 10/21 Govind Dodson CHARTERED ACCOUNTANT Nausea and vomiting Cough 23082619 (SNOMED CT) 10/21 Active 10/21 Govind Dodson CHARTERED ACCOUNTANT Cough Body mass index (BMI) 39.0-39.9; adult Z68.39 (ICD-10-CM ) 09/08 Removed 09/08 Govind Dodson CHARTERED ACCOUNTANT Body mass index [BMI] 39.0-39.9, adult Body mass index (BMI) 40.0-44.9; adult Z68.41 (ICD-10-CM ) 02/25 Correction 02/25 Govind Dodson CHARTERED ACCOUNTANT Body mass index [BMI] 40.0-44.9, adult Vitamin D deficiency 10868700 (SNOMED CT) 09/08 Active 09/08 Govind Dodson CHARTERED ACCOUNTANT Vitamin D deficiency Gout 90338855 (SNOMED CT) 09/08 Active 09/08 Govind Dodson CHARTERED ACCOUNTANT Gout Body mass index (BMI) 40.0-44.9; adult Z68.41 (ICD-10-CM ) 02/25 Removed 02/25 Govind Dodson APRN Body mass index [BMI] 40.0-44.9, adult Shoulder joint pain, right 125887740 (SNOMED CT) 02/25 Active 02/25 Govind Dodson CHARTERED ACCOUNTANT Shoulder joint pain Counseling for nutrition Z71.3 (ICD-10-CM ) 02/25 Inactive 02/25 Govind Dodson APRN Dietary counseling and surveillance Body mass index (BMI) 39.0-39.9; adult Z68.39 (ICD-10-CM ) 11/12 Correction 11/12 Govind Dodson CHARTERED ACCOUNTANT Body mass index [BMI] 39.0-39.9, adult Prediabetes 976036922 (SNOMED CT) 02/25 Active 02/25 Govind Dodson CHARTERED ACCOUNTANT Prediabetes Body mass index (BMI) 39.0-39.9; adult Z68.39 (ICD-10-CM ) 11/12 Removed 11/12 Govind Dodson CHARTERED ACCOUNTANT Body mass index [BMI] 39.0-39.9, adult Counseling for nutrition Z71.3 (ICD-10-CM ) 11/12 Inactive 11/12 Govind Dodson CHARTERED ACCOUNTANT Dietary counseling and surveillance Body mass index (BMI) 39.0-39.9; adult Z68.39 (ICD-10-CM ) 08/21 Correction 08/21 Govind Dodson APRN Body mass index [BMI] 39.0-39.9, adult Enlarged lymph nodes 22171668 (SNOMED CT) 11/12 Active 11/12 Govind Dodson CHARTERED ACCOUNTANT Lymphadenopath y Elevated liver enzymes 251199955 (SNOMED CT) 08/25 Active 08/25 Govind Dodson CHARTERED ACCOUNTANT Liver enzymes outside reference range Hyperlipide dillon 52073500 (SNOMED CT) 08/25 Active 08/25 Govind Dodson CHARTERED ACCOUNTANT Hyperlipidemia Hyperglycem ia 60394951 (SNOMED CT) 08/25 Active 08/25 Govind Dodson CHARTERED ACCOUNTANT Hyperglycemia Body mass index (BMI) 39.0-39.9; adult Z68.39 (ICD-10-CM ) 08/21 Removed 08/21 Govind Dodson APRN Body mass index [BMI] 39.0-39.9, adult Breast exam 24548723 (SNOMED CT) 08/21 Active 08/21 Govind Dodson CHARTERED ACCOUNTANT Examination of breast Foot joint pain, left 650576561 (SNOMED CT) 08/21 Active 08/21 Govind Dodson CHARTERED ACCOUNTANT Pain of joint of foot Knee joint pain, right 21162648 (SNOMED CT) 08/21 Active 08/21 Govind Dodson CHARTERED ACCOUNTANT Knee pain Dysuria 40396054 (SNOMED CT) 08/21 Active 08/21 Govind Dodson CHARTERED ACCOUNTANT Dysuria Vaginal discharge 391842492 (SNOMED CT) 08/21 Active 08/21 Govind Dodson CHARTERED ACCOUNTANT Vaginal discharge Establish care or get acquainted visit 739052483 (SNOMED CT) 08/21 Active 08/21 Govind Dodson APRN Procedure carried out on subject Hypothyroid 99055085 (SNOMED CT) 08/21 Active 08/21 Govind Dodson CHARTERED ACCOUNTANT Hypothyroidism Hypertensio n, benign 20208033 (SNOMED CT) 08/21 Active 08/21 Govind Dodson CHARTERED ACCOUNTANT Benign hypertension Hx of hysterectom y, total 178332747 (OMED CT) 08/21 Active 08/21 Govind Dodson CHARTERED ACCOUNTANT Total hysterectomy Medications Medication Instructions Start Date Stop Date Generic Name ND Provider Diflucan 150 mg tablet Take 1 tablet by mouth single dose May repeat in 7 days 11/05 Diflucan 150 mg tablet Lena Willy CHARTERED ACCOUNTANT NATURAL VITAMIN D-3 125 MCG (5000 UT) TABS Take 1 tablet by mouth once a day 11/05 cholecalciferol (vitamin d3) 99563038451 Lena Willymike JENKINSN AMOXICILLIN 500 MG CAPS Take 1 capsule by mouth twice a day for 10 days 10/29 amoxicillin 90223626344 Lena Willy CHARTERED ACCOUNTANT GOODSENSE ASPIRIN 81 MG CHEW 08/07 aspirin 85013570684 Lena Willy CHARTERED ACCOUNTANT FISH OIL 1000 MG CAPS Take 1 capsule by mouth twice a day 07/25 omega 5-zgg-zla-fish oil 99649599345 Lena Aguilera APRN GOODSENSE ASPIRIN 81 MG CHEW Take 1 tablet by mouth once a day 08/07 aspirin 76050570809 Lena Aguilera APRN LISINOPRIL-HYDROCHLO ROTHIAZIDE 20-12.5 MG TABS Take 1 tablet by mouth once a day 07/10 lisinopril-hydroch lorothiazide 50754574930 Lena Aguilera APRN FISH OIL 1000 MG CAPS Take 1 capsule by mouth twice a day 07/25 omega 7-new-mhm-fish oil 52660279690 Lena Aguilera APRN LEVOTHYROXINE SODIUM 75 MCG TABS Take 1 tablet by mouth once a day 08/21 levothyroxine 28223897174 Lena Aguilera APRN LISINOPRIL-HYDROCHLO ROTHIAZIDE 20-12.5 MG TABS Take 1 tablet by mouth once a day 07/10 lisinopril-hydroch lorothiazide 14908294971 Marine Lawrence APRN LEVOTHYROXINE SODIUM 75 MCG TABS Take 1 tablet by mouth once a day 08/21 levothyroxine 83179331248 Marine Lawrence APRN FISH OIL 1000 MG CAPS Take 1 capsule by mouth twice a day 07/25 omega 5-xuf-efl-fish oil 38934591731 Lena Aguilera APRN TAMIFLU 75 MG CAPS Take 1 capsule by mouth twice a day FOR FIVE DAYS 07/25 oseltamivir 22468125992 Lena Aguilera APRN PREDNISONE 20 MG TABS Take 1 tablet by mouth twice a day for 5 days 07/25 prednisone 45120287997 Lena Aguilera APRN PRAVASTATIN SODIUM 20 MG TABS Take 1 tablet by mouth once a day 01/24 pravastatin 44597269786 Lena Aguilera APRN TAMIFLU 75 MG CAPS Take 1 capsule by mouth twice a day FOR FIVE DAYS oseltamivir 08810401423 Lena Aguilear APRN PREDNISONE 20 MG TABS Take 1 tablet by mouth twice a day for 5 days prednisone 04205233997 Lena Aguilera APRN PRAVASTATIN SODIUM 20 MG TABS Take 1 tablet by mouth once a day 01/24 pravastatin 01695961932 Lena Aguilera APRN PRAVASTATIN SODIUM 20 MG TABS Take 1 tablet by mouth once a day 01/24 pravastatin 91114507185 Rebecca Abhinav CHARTERED ACCOUNTANT TAMIFLU 75 MG CAPS Take 1 capsule by mouth twice a day FOR FIVE DAYS oseltamivir 30634522918 Bianka Vania CHARTERED ACCOUNTANT PREDNISONE 20 MG TABS Take 1 tablet by mouth twice a day for 5 days prednisone 60179025653 Bianka Vania KALIN GOODSENSE ASPIRIN 81 MG CHEW aspirin 70045888318 Lena Aguilera APRN METFORMIN HCL 500 MG TABS Take increase to 2 tablets in AM and 1 tablet in PM metformin 00556901497 Lena Aguilera APRN ALLOPURINOL 100 MG TABS TAKE 1 TABLET BY MOUTH ONCE DAILY 01/07 allopurinol 86921053700 Lena Aguilera APRN LEVOTHYROXINE SODIUM 75 MCG TABS Take 1 tablet by mouth once a day 08/21 levothyroxine 19152632057 Lena Aguilera APRN LISINOPRIL-HYDROCHLO ROTHIAZIDE 20-12.5 MG TABS Take 1 tablet by mouth once a day 07/10 lisinopril-hydroch lorothiazide 77151465910 Lena Aguilera APRN PRAVASTATIN SODIUM 20 MG TABS Take 1 tablet by mouth once a day 01/24 pravastatin 60115291597 Lena Aguilera APRN METFORMIN HCL 500 MG TABS Take increase to 2 tablets in AM and 1 tablet in PM metformin 12759336572 Gavin Plascencia MD PRAVASTATIN SODIUM 10 MG TABS Take 1 tablet by mouth every night 09/09 pravastatin 42929665044 Gavin Plascencia MD METHOCARBAMOL 750 MG TABS TAKE 1 TABLET BY MOUTH THREE TIMES DAILY as needed for muscle spasms. 07/10 methocarbamol 97225550837 Gavin Plascencia MD LEVOTHYROXINE SODIUM 75 MCG TABS Take 1 tablet by mouth once a day 08/21 levothyroxine 31647696688 Gavin Plascencia MD NAPROXEN 500 MG TABS Take 1 tablet by mouth twice a day as needed 08/21 naproxen 71995725528 Gavin Plascencia MD LISINOPRIL-HYDROCHLO ROTHIAZIDE 20-25 MG TABS Take 1 tablet by mouth once a day 07/10 lisinopril-hydroch lorothiazide 66891533266 Gavin Plascencia MD LISINOPRIL-HYDROCHLO ROTHIAZIDE 20-12.5 MG TABS Take 1 tablet by mouth once a day 07/10 lisinopril-hydroch lorothiazide 73770085117 Gavin Plascencia MD CYCLOBENZAPRINE HCL 10 MG TABS Take 1 tablet by mouth at bedtime 07/10 cyclobenzaprine 62001511648 Gavin Plascencia MD METFORMIN HCL 500 MG TABS Take increase to 2 tablets in AM and 1 tablet in PM metformin 10898096537 Holly Nolan APRN PRAVASTATIN SODIUM 10 MG TABS Take 1 tablet by mouth every night 09/09 pravastatin 11094389533 Holly Nolan APRN LISINOPRIL-HYDROCHLO ROTHIAZIDE 20-25 MG TABS Take 1 tablet by mouth once a day lisinopril-hydroch lorothiazide 52906325141 Holly Nolan APRN LEVOTHYROXINE SODIUM 75 MCG TABS Take 1 tablet by mouth once a day 08/21 levothyroxine 18521809289 Holly Blanchejulienne CHARTERED ACCOUNTANT METHOCARBAMOL 750 MG TABS TAKE 1 TABLET BY MOUTH THREE TIMES DAILY as needed for muscle spasms. methocarbamol 15860626760 Holly Nolan APRN LEVOTHYROXINE SODIUM 75 MCG TABS Take 1 tablet by mouth once a day 08/21 levothyroxine 81979612129 Govind Dodson APRN PRAVASTATIN SODIUM 10 MG TABS Take 1 tablet by mouth every night 09/09 pravastatin 89255130383 Govind Dodson APRN METFORMIN HCL 500 MG TABS Take increase to 2 tablets in AM and 1 tablet in PM metformin 35091408104 Govind Dodson APRN METHOCARBAMOL 750 MG TABS TAKE 1 TABLET BY MOUTH THREE TIMES DAILY as needed for muscle spasms. methocarbamol 30243653731 Govind West JENKINSN HYDROCHLOROTHIAZIDE 25 MG TABS Take 1 tablet by mouth once a day TAKE ONE TABLET BY MOUTH DAILY 03/17 hydrochlorothiazid e 37149791516 Govind [place] GAGNON VITAMIN D3 1.25 MG (30666 UT) CAPS Take 1 capsule by mouth once a week 09/08 cholecalciferol (vitamin d3) 99146319022 Govind Dodson APRN LISINOPRIL-HYDROCHLO ROTHIAZIDE 20-25 MG TABS Take 1 tablet by mouth once a day lisinopril-hydroch lorothiazide 10912975911 Govind Dodson APRN METFORMIN HCL 500 MG TABS Take increase to 2 tablets in AM and 1 tablet in PM metformin 78368317300 Gavin Plascencia MD ALLOPURINOL 100 MG TABS TAKE 1 TABLET BY MOUTH ONCE DAILY 01/07 allopurinol 73390464644 Gavin Plascencia MD LEVOTHYROXINE SODIUM 75 MCG TABS Take 1 tablet by mouth once a day 08/21 levothyroxine 30086253575 Gavin Plascencia MD VITAMIN D3 1.25 MG (30914 UT) CAPS Take 1 capsule by mouth once a week 09/08 cholecalciferol (vitamin d3) 65762044188 Gavin Plascencia MD HYDROCHLOROTHIAZIDE 25 MG TABS Take 1 tablet by mouth once a day TAKE ONE TABLET BY MOUTH DAILY 03/17 hydrochlorothiazid e 71014788504 Gavin Plascencia MD PRAVASTATIN SODIUM 10 MG TABS Take 1 tablet by mouth every night 09/09 pravastatin 06197385898 Gavin Plascencia MD METFORMIN HCL 500 MG TABS Take 1 tablet by mouth twice a day increase to 2 tablets in AM and 1 tablet in PM 04/07 metformin 70793398115 Govind Dodson APRN METFORMIN HCL 500 MG TABS Take increase to 2 tablets in AM and 1 tablet in PM metformin 31046685045 Govind Dodson APRN LEVOTHYROXINE SODIUM 75 MCG TABS Take 1 tablet by mouth once a day 08/21 levothyroxine 69192532035 Govind Dodson APRN METFORMIN HCL 500 MG TABS Take 1 tablet by mouth twice a day 09/09 metformin 44185881964 Govind Dodson APRN HYDROCHLOROTHIAZIDE 25 MG TABS Take 1 tablet by mouth once a day TAKE ONE TABLET BY MOUTH DAILY 03/17 hydrochlorothiazid e 54181180322 Govind Dodson APRN METFORMIN HCL 500 MG TABS Take 1 tablet by mouth twice a day increase to 2 tablets in AM and 1 tablet in PM metformin 43935943589 Govind Dodson APRN LEVOTHYROXINE SODIUM 75 MCG TABS Take 1 tablet by mouth once a day 08/21 levothyroxine 45923456660 Joana Boudreaux APRN HYDROCHLOROTHIAZIDE 25 MG TABS Take 1 tablet by mouth once a day 08/21 hydrochlorothiazid e 44174253907 Paola Fuller MA HYDROCHLOROTHIAZIDE 25 MG TABS Take 1 tablet by mouth once a day TAKE ONE TABLET BY MOUTH DAILY 03/17 hydrochlorothiazid e 77652004856 Jonaa Boudreaux APRN ALLOPURINOL 100 MG TABS Take 1 tablet by mouth once a day 09/08 allopurinol 73704720107 Govind Dodson APRN ALLOPURINOL 100 MG TABS TAKE 1 TABLET BY MOUTH ONCE DAILY 01/07 allopurinol 31485591385 Govind Dodson APRN NAPROXEN 500 MG TABS Take 1 tablet by mouth twice a day as needed 08/21 naproxen 46132070220 Govind Dodson APRN VITAMIN D3 1.25 MG (00316 UT) CAPS Take 1 capsule by mouth once a week 09/08 cholecalciferol (vitamin d3) 12802663450 Govind Dodson APRN ALLOPURINOL 100 MG TABS Take 1 tablet by mouth once a day 09/08 allopurinol 55931472449 Govind Dodson APRN IMODIUM A-D 2 MG TABS TAKE 2 TABLETS BY MOUTH ONCE THEN TAKE 1 TABLET AFTER EACH LOOSE BOWEL MOVEMENT. MAX 4 TABLETS IN 24 HOURS 10/21 LOPERAMIDE HCL Govind Dodson KALIN LEVOTHYROXINE SODIUM 75 MCG TABS Take 1 tablet by mouth once a day 08/21 levothyroxine 29290702112 Govind Dodson APRN METFORMIN HCL 500 MG TABS Take 1 tablet by mouth twice a day 09/09 metformin 56822931101 Govind Dodson APRN PRAVASTATIN SODIUM 10 MG TABS Take 1 tablet by mouth every night 09/09 pravastatin 94949816491 Govindravi Dodson KALIN HYDROCHLOROTHIAZIDE 25 MG TABS Take 1 tablet by mouth once a day 08/21 hydrochlorothiazid e 86413956745 Paola Alina MA IMODIUM A-D 2 MG [...] as needed for nausea/vomiti ng 12/15 ondansetron 28691506779 Govindravi Dodson KALIN VALTREX 1 GM TABS TAKE 1 TABLET BY MOUTH 2 TIMES A DAY 10/21 VALACYCLOVIR HCL 95074154538 Govind Dodson KALIN IMODIUM A-D 2 MG TABS TAKE 2 TABLETS BY MOUTH ONCE THEN TAKE 1 TABLET AFTER EACH LOOSE BOWEL MOVEMENT. MAX 4 TABLETS IN 24 HOURS 10/21 LOPERAMIDE HCL 86654182804 Govind Dodson APRN ONDANSETRON HCL 8 MG TABS TAKE 1 TABLET BY MOUTH EVERY 8 HOURS NEEDED FOR NAUSEA/VOMTIN G 10/21 ONDANSETRON HCL 46005335329 Govind Dodson APRN METFORMIN HCL 500 MG TABS TAKE 1 TABLET BY MOUTH 2 TIMES A DAY 09/09 METFORMIN HCL 82414787259 Govind Dodson CHARTERED ACCOUNTANT PRAVASTATIN SODIUM 10 MG TABS TAKE 1 TABLET BY MOUTH AT BEDTIME FOR CHOLESTEROL 09/09 PRAVASTATIN SODIUM 60623230335 Govind Dodson APRN VITAMIN D3 1.25 MG (47592 UT) CAPS TAKE 1 CAPSULE BY MOUTH ONCE PER WEEK 09/08 CHOLECALCIFEROL 17524840618 Govind Dodson APRN ALLOPURINOL 100 MG TABS TAKE 1 TABLET BY MOUTH ONCE A DAY 09/08 ALLOPURINOL 49665013990 Govind Dodson APRN PRAVASTATIN SODIUM 10 MG TABS TAKE 1 TABLET BY MOUTH AT BEDTIME FOR CHOLESTEROL 02/26 PRAVASTATIN SODIUM 79804135634 Govind Dodson APRN METFORMIN HCL 500 MG TABS TAKE 1 TABLET BY MOUTH 2 TIMES A DAY 02/26 METFORMIN HCL 42312476060 Govind Dodson APRN METFORMIN HCL 500 MG TABS TAKE 1 TABLET BY MOUTH 2 TIMES A DAY 02/26 METFORMIN HCL 70902289457 Govind Dodson APRN PRAVASTATIN SODIUM 10 MG TABS TAKE 1 TABLET BY MOUTH AT BEDTIME FOR CHOLESTEROL 02/26 PRAVASTATIN SODIUM 67949774334 Govind Dodson APRN LEVOTHYROXINE SODIUM 75 MCG TABS TAKE 1 TABLET BY MOUTH ONCE A DAY 08/21 LEVOTHYROXINE SODIUM 67088073829 Govind Dodson APRN NAPROXEN 500 MG TABS TAKE 1 TABLET BY MOUTH 2 TIMES A DAY NEEDED 08/21 NAPROXEN 80754920699 Govind Dodson APRN HYDROCHLOROTHIAZIDE 25 MG TABS TAKE ONE TABLET BY MOUTH ONCE DAILY 08/21 HYDROCHLOROTHIAZID E 03573240274 Govind Dodson APRN LEVOTHYROXINE SODIUM 50 MCG TABS TAKE ONE TABLET BY MOUTH ONCE DAILY 08/21 LEVOTHYROXINE SODIUM 59410487618 Govind Dodson APRN Medications Administered No information available. Allergies, Adverse Reactions, Alerts Allergy Name Reaction Description Start Date Severity Statu s Provider BACTRIM RASH Mild Active Govind hastings CHARTERED ACCOUNTANT Results Date Name Value Unit Range Flag [...] Office Visit: INFLUENZA LABS ORDERED Strep Screen 91839 Laboratory tests ordered RAPID STREP negative Streptoc [...] in Blood ABS NEUTROPH 3450 CELLS/UL 10*3/uL 6832-6215 N Neutrophils [#/volume] in Blood MPV 10.7 [...] Appointment 08:30 AM Lena Aguilera APRN, [address] , [place], [address], Referral [facility] Phy Therapy [facility], [address], [place], [address] Referral [facility], [address], [place], [place] Referral Orthopedic Refer ral General Pending [...] COV ID-19 Pending order Urine Dip Manual [id number] Pending order T1 CMP Pending order T1 Lipid Panel Pending order T1 TSH reflex to free T4 Pending order Urine Dip Manual [id number] Pending Order exclud ed from report: Pending [...] Procedures Code Procedure Name Date Entry Date [facility]-[id number] Medication Reconciliation CPT-3075F Most recent systolic blood pressure 130-139 mm Hg CPT-3078F Most recent diastoli c blood pressure <80 mm Hg CPT-1159F Medication list docu mented in medical record CPT-1160F Review of all medica tions by a prescribing practitioner [facility] 6399 T1 CBC with diff [facility] 88726 T1 CMP [facility] 72314 T1 Lipid Panel [facility] 34374 T1 TSH reflex to free T4 11/03/07 [facility] 496 T1 HGBA1c SCT-[id number] Medication Reconciliation CPT-3074F Most recent systolic blood pressure <130 mm Hg CPT-3078F Most recent diastoli c blood pressure <80 mm Hg CPT-1159F Medication list docu mented in medical record CPT-1160F Review of all medica tions by a prescribing practitioner [facility] 395 T1 Urine Culture CPT-1159F Medication list docu mented in medical record CPT-1160F Review of all medica tions by a prescribing practitioner SCT-[id number] Lifestyle education regarding diet 08/07 [facility] 12709 T1 CMP [facility] 6399 T1 CBC with diff [facility] 60195 T1 Lipid Panel [facility] 78011 T1 TSH reflex to free T4 10/30/06 [facility] 496 T1 HGBA1c SCT-[id number] Medication Reconciliation Mammo LUCIEN Mammogram CPT-1159F Medication list docu mented in medical record SCT-[id number] Medication Reconciliation [facility] 09401 T1 CMP [facility] 6399 T1 CBC with diff [facility] 65243 T1 Lipid Panel [facility] 496 T1 HGBA1c [facility] 69218 T1 TSH reflex to free T4 10/06/00 CPT-3074F Most recent systolic blood pressure <130 mm Hg CPT-3078F Most recent diastoli c blood pressure <80 mm Hg SCT-[id number] Medication Reconciliation CPT-3074F Most recent systolic blood pressure <130 mm Hg CPT-3078F Most recent diastoli c blood pressure <80 mm Hg CPT-1159F Medication list docu mented in medical record CPT-1160F Review of all medica tions by a prescribing practitioner US URQ LUCIEN Ultrasound RUQ SCT-[id number] Lifestyle education regarding diet 07/25 [facility] 38525 T1 CMP [facility] 6399 T1 CBC with diff [facility] 496 T1 HGBA1c [facility] 99657 T1 Lipid Panel [facility] 82541 T1 TSH reflex to free T4 202 09/29/24 [facility] 4418 T2 Rheumatoid Factor Quant 2 [facility] 249 T2 BEN [facility] 809 T1 Sedimentation Rate RBC 20 24/07/24 [facility] 97195 T1 Acute Hepatits Panel 2023 [facility] 39523 T2 Vitamin D 25 Hydroxy 2023 [facility] CPT-94337 Strep Screen 08465 7 CPT-3074F Most recent systolic blood pressure <130 mm Hg CPT-3079F Most recent diastoli c blood pressure 80-89 mm Hg CPT-1159F Medication list docu mented in medical record SCT-[id number] Medication Reconciliation SCT-[id number] Never smoker CPT-1159F Medication list docu mented in medical record CPT-1160F Review of all medica tions by a prescribing practitioner [facility] 15279 T1 CMP [facility] 6399 T1 CBC with diff [facility] 496 T1 HGBA1c [facility] 26335 T1 Lipid Panel [facility] 35813 T1 TSH reflex to free T4 09/04/26 [facility] 44097 T2 Vitamin D 25 Hydroxy 2022 Mammo LUCIEN Mammogram SCT-[id number] Medication Reconciliation CPT-3074F Most recent systolic blood pressure <130 mm Hg CPT-3079F Most recent diastoli c blood pressure 80-89 mm Hg SCT-[id number] Medication Reconciliation [facility] 6399 T1 CBC with diff [facility] 41419 T1 CMP [facility] 496 T1 HGBA1c [facility] 83802 T1 Lipid Panel [facility] 34871 T1 TSH reflex to free T4 202 [...] Medication list docu mented in medical record SCT-[id number] Medication Reconciliation SCT-576996744 Giving encouragement to exercise SCT-501824757 Dietary management education/guidance/counseling SCT-890999053 Lifestyle education regarding diet 04/26 SCT-282560324 Prescribed activity/exercise education [facility] 10782 T1 CMP [facility] 496 T1 HGBA1c [facility] 25508 T1 Lipid Panel [facility] 09691 T1 TSH reflex to free T4 08/10/26 [facility] 83872 T2 Vitamin D 25 Hydroxy 2021 SCT-[id number] Medication Reconciliation [id number],[id number] Lipid Profile [id number] SGPT (ALT) Q65086I,[id number] SGOT (AST) [facility] 6399 T1 CBC with diff [facility] 54000 T1 CMP [facility] 496 T1 HGBA1c [facility] 83006 T1 Lipid Panel [facility] 91156 T1 TSH reflex to free T4 08/04/28 [facility] 905 T1 Uric Acid Mammo LUCIEN Mammogram CPT-3077F Most recent systolic blood pressure >=140 mm Hg CPT-3079F Most recent diastolic blood pressure 80-8 9 mm Hg CPT [address] [place] [address] SCT-[id number] Medication Reconciliation [facility] 48052 Patient Pay- COVID-19 07/10 SCT-[id number] Medication Reconciliation CPT-3074F Most recent systolic blood pressure <130 mm Hg CPT-3078F Most recent diastoli c blood pressure <80 mm Hg CPT-1159F Medication list docu mented in medical record CPT-1160F Review of all medica tions by a prescribing practitioner [facility] 40908 T1 CMP [facility] 6399 T1 CBC with diff [facility] 496 T1 HGBA1c [facility] 72664 T1 TSH reflex to free T4 202 07/10/06 CT ABD & PELV W&WO CT Abdomen and Pelvis w & w-out con trast CPT-1159F Medication list docu mented in medical record [id number] Medication Reconciliation CPT-1160F Review of all medica tions by a prescribing practitioner SCT-[id number] Giving encouragement to exercise SCT-[id number] Dietary management education/guidance/counseling SCT-904016086 Lifestyle education regarding diet 12/15 SCT-[id number] Prescribed activity/exercise education [facility] 243 T1 Amylase [facility] 6399 T1 CBC with diff [facility] 73277 T1 CMP [facility] 606 T1 Lipase [facility] 29911 Patient Pay- COVID-19 0 12/15 [place] [facility] Ultrasound Gall Bladder 2020 [id number] Medication Reconciliation [facility] 69789 Patient Pay- COVID-19 10/21 SCT-[id number] Medication Reconciliation CPT-3075F Most recent systolic blood pressure 130-139 mm Hg CPT-3078F Most recent diastoli c blood pressure <80 mm Hg CPT-46952 Urine Dip Manual 77481 09/08 CPT-1159F Medication list docu mented in medical record CPT-1160F Review of all medica tions by a prescribing practitioner SCT-[id number] Giving encouragement to exercise SCT-785218910 Dietary management education/guidance/counseling SCT-221331604 Lifestyle education regarding diet 09/08 SCT-316796805 Prescribed activity/exercise education 2 Quest 53885 T1 CMP Quest 79252 T1 Lipid Panel [facility] 94036 T1 TSH reflex to free T4 202 07/03/10 SCT-[id number] Medication Reconciliation CPT-3074F Most recent systolic blood pressure <130 mm Hg CPT-3079F Most recent diastoli c blood pressure 80-89 mm Hg CPT-1159F Medication list docu mented in medical record CPT-1160F Review of all medica tions by a prescribing practitioner X-Ray Shoulder Right X-Ray Shoulder Right Quest 38617 T1 CMP Quest 496 T1 HGBA1c Quest 79690 T1 TSH reflex to free T4 202 Quest 89577 T1 Lipid Panel [id number] Medication Reconciliation SCT-[id number] Medication Reconciliation Other Other CPT-3075F Most recent systolic blood pressure 130-139 mm Hg CPT-3079F Most recent diastoli c blood pressure 80-89 mm Hg ORTHO GEN Orthopedic Referral General X-Ray Knee Right X-Ray Knee Right Quest 496 T1 HGBA1c Quest 83472 T1 Acute Hepatits Panel 2019 MRI KNEE WO [facility] MRI Knee w-o contrast 202 SCT-[id number] Medication Reconciliation Quest 6399 T1 CBC with diff Quest 48866 T1 CMP [facility] 84781 T1 Lipid Panel [facility] 37984 T1 TSH reflex to free T4 202 CPT-3074F Most recent systolic blood pressure <130 mm Hg CPT-3079F Most recent diastoli c blood pressure 80-89 mm Hg Quest 92939 T2 BV Yeast Trich Culture (Affirm) 08/21 X-Ray Foot Left X-Ray Foot Left 1 SCT-466121296 Giving encouragement to exercise SCT-088253742 Dietary management education/guidance/counseling SCT-534045356 Lifestyle education regarding diet 08/21 SCT-070514748 Prescribed activity/exercise education 2 CPT-53283 Urine Dip Auto 91511 Mammo LUCIEN Mammogram Vital Signs Date Name [...]
--- OUTSIDE RECORDS SUMMARY | 2025-01-19 13:56 | XMS_ITS | Clinical Summary ---
Author Organization [employer] ([place], [place], [place], [place]) Address [address] [place] [address] Care Team Providers Care Kennel Helper Name Role Phone Nick Rasmussen PA-C Unavailable [phone] Lena Aguilera APRN Primary Care Provider [phone] Nimisha Nuñez PA-C Unavailable [phone] Allergies Active Allergy Reactions Criticality Noted Date [...] Description 12/23/2024 2:15 PM EDT Office Visit [facility] Orthopedics - [address] [place] [address] Nick Rasmussen PA-C Left carpal tunnel syndrome (Primary Dx) 12/18/2024 9:00 AM EDT Procedure Visit [facility] Neurology - [facility] [address] [place] [address] Nick Rasmussen PA-C Everman, Nicole A, MD Numbness and tingling of both upper extremities 12/18/2024 Orders Only [facility] Neurology - [facility] [address] [place] [address] ProviderBeena MD 12/18/2024 Travel 12/05/2024 10:57 AM EDT - 12/05/2024 2:53 PM EDT Emergency [facility] Emergency Department [address] [place] [place] [address] Mayank Patrick MD Acute cystitis with hematuria (Primary Dx); Chest pain, unspecified type Discharge Disposition: Home or Self Care 12/05/2024 Travel 11/19/2024 9:40 AM EDT - 11/19/2024 11:59 PM EDT Hospital Encounter [facility] Diagnostic Imaging [address] [place] [address] Nick Rasmussen PA-C Bilateral foot pain Discharge Disposition: Home or Self Care 11/19/2024 9:40 AM EDT - 11/19/2024 11:59 PM EDT Hospital Encounter [facility] Diagnostic Imaging [address] [place] [address] Nick Rasmussen PA-C Bilateral hand pain Discharge Disposition: Home or Self Care 11/19/2024 9:30 AM EDT Office Visit [facility] Orthopedics [address] [address] Nick Rasmussen PA-C Numbness and tingling of both upper extremities (Primary Dx); Bilateral hand pain; Bilateral foot pain; Calcaneal spur of left foot; Primary osteoarthritis of both hands; De Quervain's tenosynovitis, left; Multiple joint pain 11/12/2024 8:30 AM EDT Office Visit [facility] [address] [address] Nick Rasmussen PA-C Primary osteoarthritis of right knee (Primary Dx); Primary osteoarthritis of left knee 10/30/2024 Outside Orders [place] [address] Physical Therapy [address] [place] [address] Lena Aguilera APRN Urinary incontinence (Primary [...] Date Vijay rded Speak language other than [place] at home Not on file 07/19/2023 Want [...] Description 02/11/2025 10:00 AM EDT Office Visit [facility] Orthopedics - [address] [place] [address] Nick Rasmussen PA-C [address] [place] [address] 08/19/2025 9:30 AM EST Appointment [facility] Breast [facility] [address] [facility] [address] [place] [address] Health Maintenance Due Date Last [...] Final Res ult [facility] [address] [phone] * (ABNORMAL) Urinalysis, Reflex Microscopic and Culture If Indicated (12/05/2024 12:45 PM EDT) Color, UA Yellow 12/05/2024 2:20 PM EDT [facility] Clarity, UA Turbid(A) Clear 12/05/2024 2:20 PM EDT [facility] Specific [place], UA 1.024 1.005 - 1.030 12/05/2024 2:20 [...] ORDERABLES Final Result [facility] [address] [phone] * (ABNORMAL) Urinalysis Microscopic Only (12/05/2024 12:45 [...] URINE ORDERABLES Final Result Performing Organization Address City/[facility]/ZIP Co de Phone Number [facility] [address] [phone] * Urine Culture (12/05/2024 12:45 PM EDT) Result Recollect Specimen - 3 or more organisms suggests contamination 12/07/2024 8:55 AM EDT [facility] Urine URINE SPECIMEN COLLECTION, CLEAN CATCH / Unknown 12/05/2024 12:45 PM EDT 12/05/2024 2:19 PM EDT Yamel Hurt NP MICROBIOLOGY - GENERAL ORDERAB LES Final Result Performing Organization Address [facility]/ZIP Co de Phone Number [facility] [address] [phone] * XR chest 1 view portable / [...] noted Atypical Lymph flag noted Yamel Hurt RESEARCH QUALITY ASSURANCE SPECIALIST LAB BLOOD ORDERABLES Final Res ult Performing Organization Address [facility]/ZIP Co de Phone Number [facility] [address] [phone] * aPTT (12/05/2024 11:30 AM EDT) aPTT 25.9 22.0 - 32.0 seconds 12/05/2024 11:48 AM EDT [facility] Blood Venipuncture / Unknown 12/05/2024 11:30 AM EDT 12/05/2024 11:30 AM EDT Yamel Hurt LAB BLOOD ORDERABLES Final Res ult Performing Organization Address [facility] Co de Phone Number [facility] [address] [phone] * Prothrombin time/INR (12/05/2024 11:30 AM EDT) [...] Final Res ult [facility] [address] [place] [address], [facility] [phone] * (ABNORMAL) Comprehensive metabolic panel (12/05/2024 11:30 [...] - 106 mg/dL 12/05/2024 11:55 AM EDT [facility] BUN 24(H) 7 - 22 mg/dL 12/05/2024 11:55 AM EDT [facility] Creatinine 1.18(H) 0.55 - 1.02 mg/dL 12/05/2024 11:55 AM EDT [facility] BUN/Creatinine 20 8 - 20 12/05/2024 11:55 AM EDT [facility] Albumin 3.9 3.4 - 5.0 g/dL 12/05/2024 11:55 AM EDT [facility] Alkaline Phosphatase 97 27 - 136 U/L 12/05/2024 11:55 AM EDT [facility] ALT 32 12 - 78 U/L 12/05/2024 11:55 AM EDT [facility] AST 24 5 - 37 U/L 12/05/2024 11:55 AM EDT [facility] Total Bilirubin 0.5 0.2 - 1.3 mg/dL 12/05/2024 11:55 AM EDT [facility] Protein, Total 7.6 6.4 - 8.2 gm/dL 12/05/2024 11:55 AM EDT [facility] Anion Gap 10 9 - 20 12/05/2024 11:55 AM EDT [facility] A/G Ratio 1.1 1.1 - 2.5 12/05/2024 11:55 AM EDT [facility] Globulin 3.7 1.5 - 4.5 g/dL 12/05/2024 11:55 AM EDT [facility] Osmolality Calc 280.3 mOsm/kg 11:55 AM EDT [facility] eGFR (mL/min/1.73m2) 53(L) >=60 mL/min/1.7 3m2 12/05/2024 11:55 AM EDT [facility] Comment:ESTIMATED GFR IS NOT ACCURATE CREATININE CLEARANCE IN PREDICTING GLOMERULAR FILTRATION RATE. ESTIMATED GFR IS NOT APPLICABLE FOR DIALYSIS PATIENTS. Blood Venipuncture / Unknown 12/05/2024 11:30 AM EDT 12/05/2024 11:30 AM EDT us Yamel Hurt NP LAB BLOOD ORDERABLES Final Res ult [facility] [address] [phone] * ECG 12 lead (12/05/2024 11:03 AM EDT) SYSTOLIC BLOOD PRESSURE (MCT) 127 mmHg GE MUSE DIASTOLIC BLOOD PRESSURE (MCT) 77 mmHg GE MUSE VENTRICULAR RATE EKG/MIN 73 BPM GE MUSE ATRIAL RATE (MCT) 73 BPM GE MUSE MI Interval 142 ms GE MUSE QRS-INTERVAL (MSEC) 66 ms GE MUSE QT Interval 394 ms GE MUSE QTC Interval 434 ms GE MUSE P [place] 38 degrees GE MUSE R AXIS (MCT) 67 degrees GE MUSE T Wave [place] 55 degrees GE MUSE [place] Diagnosis Normal sinus rhythm Low voltage QRS [...] recommended imaging studies/procedures. At our facility, a [place] marker is positioned over a visible skin [...] Most Recently Relevant to Health Maintenance Insurance [facility] Care Teams Kennel Helper Relationship Specialty Start Date End Date Lena Aguilera, KALIN [address] [place] [address] PCP - General Family Medicine 10/28/23 Nick Rasmussen PA-C [address] [place] [address] Orthopedic Surgery 08/07/23 Nimisha Nuñez PA-C [address] [place] [address] Physician Perinatal Director Orthopedic Surgery 02/05/24
--- OUTSIDE RECORDS SUMMARY | 2025-01-19 13:56 | XMS_ITS | Encounter Summary ---
Author Organization [employer] ([place], [place], [place], [place]) Address [address] [place] [address] Care Team Providers Care Thread Trimmer Name Role Phone Krystyna Elliott [facility] Primary Care Provider Nick Rasmussen PA-C Unavailable [phone] Lena Aguilera APRN Primary Care Provider [phone] Nimisha Nuñez PA-C Unavailable [phone] Encounter Details Date Type Department Care Team (Late st Contact Info) Description 12/17/2019 Transcribed Document [facility] 1 [place] [address] Provider, Audar Hargrove MD Social History Tobacco Use Types Packs/Day Years Used Date Smoking Tobacco: Never Assessed Comments Unknown Sex and Gender Information Value Date Recorded Sex Assigned at Not on file Legal Sex Female 6:57 PM CDT Gender Identity Not on file Sexual Orientation Not on file documented as of this encounter Miscellaneous Notes * Cerner Conversion Note - [facility] Beena ProviderMD - 12/17/2019 10:36 AM EDT [facility] Main OR PACU Summary Primary Physician: DRAGAN FLAHERTY MD-ORT Finalized Date/Time: 12/17/19 10:50:47 Pt. Name: MAGALYANISA WALLISE /Sex: 1965 Female Med Rec #: [id number] Physician: DRAGAN FLAHERTY MD-ORT Financial #: [id number] Pt. Type: O Room/Bed: [facility]/4 Admit/Disch: 12/17/19 04:47:00 - Institution: [facility] Main OR PACU Case Times Entry 1 [...] Description 02/11/2025 10:00 AM EDT Office Visit [facility] Orthopedics - [facility] [address] [place] [address] Nick Rasmussen PA-C [address] [place] [address] 08/19/2025 9:30 AM EST Appointment [facility] [address] [facility] [address] [place] [address] documented as of this encounter Visit Diagnoses Not on filedocumented in this encounter Care Teams Thread Trimmer Relationship Specialty Start Date End Date [facility] [place] [address] PCP - General 09/19/22 10/27/23 Lena Aguilera, KALIN [address] [place] [address] PCP - General Family Medicine 10/28/23 Nick Rasmussen PA-C [address] [place] [address] Orthopedic Surgery 2/7/24 Nimisha Nuñez PA-C [address] [place] [address] Physician News Internship Orthopedic Surgery 02/05/24 documented as of this encounter
--- OUTSIDE RECORDS SUMMARY | 2025-01-19 13:56 | XMS_ITS | Encounter Summary ---
Author Organization [employer] ([place], [place], [place], [place]) Address [address] [place] [address] Care Team Providers Care Ibm [employer] Commerce Consultant Name Role Phone Krystyna Elliott [facility] Primary Care Provider Nick Rasmussen PA-C Unavailable [phone] Lena Aguilera APRN Primary Care Provider [phone] Nimisha Nuñez PA-C Unavailable [phone] Encounter Details Date Type Department Care Team (Late st Contact Info) Description 12/03/2019 Transcribed Document [facility] 1 [place] [address] Provider, Audra Hargrove MD Social History Tobacco Use Types Packs/Day Years Used Date Smoking Tobacco: Never Assessed Comments Unknown Sex and Gender Information Value Date Recorded Sex Assigned at Not on file Legal Sex Female 6:57 PM CDT Gender Identity Not on file Sexual Orientation Not on file documented as of this encounter Miscellaneous Notes * Cerner Conversion Note - [facility] Beena ProviderMD - 12/03/2019 9:36 AM EDT PAT Adult Entered On: 12/03/2019 8:40 EDT Performed On: 12/03/2019 8:36 EDT by ROASLINE MCKEON, RN Vital Measurements Temperature Source : [...] Source : Stated Height Entry Format : Alexis Height, Feet : 5 ft(Converted to: 152 cm, 60 Inch) Height, Inches : 3 Inch(Converted to: 0 ft 3 Inch, 7.62 cm) Clinical Height : 160.02 cm Weight Source : Standing scale Weight Entry Format : Alexis Clinical Dosing Weight : 100.91 kg Weight, Pounds : 222 lb Body Surface Area (BSA) : 2.02 m2 Body Mass Index : 39.4 kg/m2 (CT) [place] Body Weight : 52 kg ROSALINE MCKEON [...] ROSALINE MCKEON RN - 12/03/2019 8:36 EDT [place] Suicide Severity Rating Scale (C-SSRS) CSSRS Past [...] #2 Relationship : - Primary Language : [place] Communication Barrier : None ROSALINE MCKEON [...] Visit [facility] Orthopedics - [address] [place] [address] Nick Rasmussen PA-C [address] [place] [address] 08/19/2025 9:30 AM EST Appointment [facility] [address] [facility] [address] [place] [address] documented as of this encounter Visit Diagnoses Not on filedocumented in this encounter Care Teams Ibm [employer] Commerce Consultant Relationship Specialty Start Date End Date Krystyna Elliott [place] [phone] PCP - General 09/19/22 10/27/23 Lena Aguilera, KALIN [address] [place] [address] PCP - General Family Medicine 10/28/23 Nick Rasmussen PA-C [address] [place] [address] Orthopedic Surgery 08/07/23 Nimisha Nuñez PA-C [address] [place] [address] Physician Finance Professor Orthopedic Surgery 02/05/24 documented as of this encounter
--- OUTSIDE RECORDS SUMMARY | 2025-01-19 13:56 | XMS_ITS | Encounter Summary ---
Author Organization [employer] ([place], [place], [place], [place]) Address [address] [place] [address] Care Team Providers Care Professional Development Director Name Role Phone Krystyna Elliott [facility] Primary Care Provider Nick Rasmussen PA-C Unavailable [phone] Lena Aguilera APRN Primary Care Provider [phone] Nimisha Nuñez PA-C Unavailable [phone] Encounter Details Date Type Department Care Team (Late st Contact Info) Description 12/17/2019 Transcribed Document [facility] 1 [place] [address] Provider, Audra Hargrove MD Social [...] Conversion Note - [facility] Beena Ogden MD - 12/17/2019 11:28 AM [...] and water are not available, use hand water restoration technician. ? Change your dressing as told by [...] medicines you take. General instructions ??? Take hrfq-qbb-nmjrbzl and prescription medicines only as told by [...] fried or sweet foods. ? Take an nxgs-gfr-mayxvkp or prescription medicines for constipation. ??? Do [...] 01/04/2006 Document Revised: 04/30/2018 Document Reviewed: 04/30/2018 [employer] Interactive Patient Education ? 2019 [employer]. documented in this encounter Plan of Treatment Upcoming Encounters Date Type Department Care Team (Late st Contact Info) Description 02/11/2025 10:00 AM EDT Office Visit [facility] Orthopedics - [address] [place] [address] Nick Rasmussen PA-C [address] [place] [address] 08/19/2025 9:30 AM EST Appointment [facility] [address] [facility] [address] [place] [address] documented as of this encounter Visit Diagnoses Not on filedocumented in this encounter Care Teams Professional Development Director Relationship Specialty Start Date End Date [address] [facility] [place] [address] PCP - General 09/19/22 10/27/23 Lena Aguilera APRN [address] [place] [address] PCP - General Family Medicine 10/28/23 Nick Rasmussen PA-C [address] [place] [address] Orthopedic Surgery 08/07/23 Nimisha Nuñez PA-C [address] [place] [address] Physician Engineer Assistant Orthopedic Surgery 02/05/24 documented as of this encounter
--- OUTSIDE RECORDS SUMMARY | 2025-01-19 13:57 | XMS_ITS | Referral Summary ---
Author Organization [facility] ([place], [place], [place], [place]) Address [address] [place] [address] Care Team Providers Care Corn Chip Maker Name Role Phone Nick Rasmussen PA-C Unavailable [phone] Lena Aguilera APRN Primary Care Provider Nimisha Nuñez PA-C Unavailable [phone] Encounters Date Type Department Care Team Description 12/23/2024 2:15 PM EDT Office Visit [facility] Orthopedics - [address] [place] [address] Nick Rasmussen PA-C Left carpal tunnel syndrome (Primary Dx) 12/18/2024 Orders Only [facility] Neurology - [facility] [address] [place] [address] ProviderBeena MD 12/18/2024 Travel 12/18/2024 9:00 AM EDT Procedure Visit [facility] Neurology - [facility] [address] [place] [address] Nick Rasmussen PA-C Everman, Nicole A, MD Numbness and tingling of both upper extremities 12/05/2024 Travel 12/05/2024 10:57 AM EDT - 12/05/2024 2:53 PM EDT Emergency [facility] Emergency Department [address] [place] [address] Mayank Patrick MD Acute cystitis with hematuria (Primary Dx); Chest pain, unspecified type Discharge Disposition: Home or Self Care 11/19/2024 9:40 AM EDT - 11/19/2024 11:59 PM EDT Hospital Encounter [facility] Diagnostic Imaging - [address] [place] [address] Nick Rasmussen PA-C Bilateral foot pain Discharge Disposition: Home or Self Care 11/19/2024 9:40 AM EDT - 11/19/2024 11:59 PM EDT Hospital Encounter [facility] Diagnostic Imaging [address] [place] [address] Nick Rasmussen PA-C Bilateral hand pain Discharge Disposition: Home or Self Care 11/19/2024 9:30 AM EDT Office Visit [facility] [address] [address] Nick Rasmussen PA-C Numbness and tingling of both upper extremities (Primary Dx); Bilateral hand pain; Bilateral foot pain; Calcaneal spur of left foot; Primary osteoarthritis of both hands; De Quervain's tenosynovitis, left; Multiple joint pain 11/12/2024 8:30 AM EDT Office Visit [facility] [address] [address] Nick Rasmussen PA-C Primary osteoarthritis of right knee (Primary Dx); Primary osteoarthritis of left knee 10/30/2024 Outside Orders [place] [address] Physical Therapy [facility] [address] [place] [address] Lena Aguilera APRN Urinary incontinence (Primary [...] 02/11/2025 10:00 AM EDT Office Visit [facility] Orth[facility] - [address] [place] [address] Nick Rasmussen PA-C [address] [place] [address] 08/19/2025 9:30 AM EST Appointment [facility] Breast [facility] [address] [facility] [address] [place] [address] Procedures Procedure Name Priority Date/Time [...] - 58.8 pg/mL 12/05/2024 1:45 PM EDT [facility] Comment: Troponin Result (pg/mL) *Interpretation [...] NP LAB BLOOD ORDERABLES Final Res ult [facility] [address] [place] [address] * (ABNORMAL) Urinalysis, Reflex Microscopic and Culture If Indicated (12/05/2024 12:45 PM EDT) Pathologist [facility] Color, UA Yellow 12/05/2024 2:20 PM EDT [facility] Clarity, UA Turbid(A) Clear 12/05/2024 2:20 PM EDT [facility] Specific Nelson, UA 1.024 1.005 - 1.030 12/05/2024 2:20 PM EDT [facility] pH, UA 7.0 6.0 - 8.0 12/05/2024 2:20 PM EDT [facility] Leukocytes, UA 500 Evangelist/uL(A) Negative 12/05/2024 2:20 PM EDT [facility] Nitrite, UA Negative Negative 12/05/2024 2:20 PM EDT [facility] Protein, UA Trace(A) Negative 12/05/2024 2:20 PM EDT [facility] Glucose, UA Normal Normal 12/05/2024 2:20 PM EDT [facility] Ketones, UA Negative Negative 12/05/2024 2:20 PM EDT [facility] Bilirubin, UA Negative Negative 12/05/2024 2:20 PM EDT [facility] Blood, UA Negative Negative 12/05/2024 2:20 PM EDT [facility] Urobilinogen, UA Normal Normal 12/05/2024 2:20 PM EDT [facility] Specimen Source Urine, Clean Catch 12/05/2024 2:20 PM EDT [facility] Urine URINE SPECIMEN COLLECTION, CLEAN CATCH / Unknown 12/05/2024 12:45 PM EDT 12/05/2024 2:07 PM EDT Yamel Hurt NP URINE ORDERABLES Final Result [facility] [address] [place] [address], [facility] [phone] * (ABNORMAL) Urinalysis Microscopic Only (12/05/2024 12:45 PM EDT) WBC, UA 51-100(A) None Seen /HPF 12/05/2024 2:20 PM EDT [facility] RBC, UA 6-10(A) None Seen /HPF 12/05/2024 2:20 PM EDT [facility] Bacteria, UA 2+(A) Trace, None Seen 12/05/2024 2:20 PM EDT [facility] Mucus 1+(A) None Seen 12/05/2024 2:20 PM EDT [facility] SQUAMOUS EPITHELIAL 3-5(A) None Seen /HPF 12/05/2024 2:20 PM EDT [facility] TRANSITIONAL EPITHELIAL CELLS 0-2(A) None Seen /HPF 12/05/2024 2:20 PM EDT [facility] Non Squamous Epithelial Cells Present Absent 12/05/2024 2:20 PM EDT [facility] Urine URINE SPECIMEN COLLECTION, CLEAN CATCH / Unknown 12/05/2024 12:45 PM EDT 12/05/2024 2:07 PM EDT us Yamel Hurt NP URINE ORDERABLES Final Result [facility] [address] [place] [address], [facility] [phone] * Urine Culture (12/05/2024 12:45 PM EDT) Result Recollect Specimen - 3 or more organisms suggests contamination 12/07/2024 8:[address] [facility] Urine URINE SPECIMEN COLLECTION, CLEAN CATCH / Unknown 12/05/2024 12:45 PM EDT 12/05/2024 2:19 PM EDT us Yamel Hurt NP MICROBIOLOGY - GENERAL ORDERAB LES Final Result [facility] [address] [place] [address], [facility] [phone] * XR chest 1 view portable / [...] by Agnes Verdin PA-C. us Yamel Hurt RADIO NEWS WRITER IMG DIAGNOSTIC IMAGING ORDERAB LES Final Result * (ABNORMAL) CBC with automated diff (12/05/2024 11:30 AM EDT) WBC 5.8 3.9 - 10.0 K/ L 12/05/2024 11:34 AM EDT [facility] RBC 4.85 3.93 - 6.08 M/ L 12/05/2024 11:34 AM EDT [facility] Hemoglobin 13.8 11.2 - 15.7 GM/DL 12/05/2024 11:34 AM EDT [facility] Hematocrit 41.5 34.1 - 44.9 % 12/05/2024 11:34 AM EDT [facility] MCV 86 79 - 95 fL 12/05/2024 11:34 AM EDT [facility] MCH 28.5 25.6 - 32.2 pg 12/05/2024 11:34 AM EDT [facility] MCHC 33.3 32.2 - 36.5 GM/DL 12/05/2024 11:34 AM EDT [facility] RDW 13.3 11.6 - 14.4 % 12/05/2024 11:34 AM EDT [facility] Platelets 195 163 - 369 K/CU MM 12/05/2024 11:34 AM EDT [facility] MPV 9.6 9.4 - 12.4 fL 12/05/2024 11:34 AM EDT [facility] % Neutros 70 34 - 71 % 12/05/2024 11:34 AM EDT [facility] % Lymphs 16(L) 19 - 53 % 12/05/2024 11:34 AM EDT [facility] % Monos 9 4 - 13 % 12/05/2024 11:34 AM EDT [facility] % Eos 5 1 - 7 % 12/05/2024 11:34 AM EDT [facility] % Baso 1 0 - 1 % 12/05/2024 11:34 AM EDT [facility] # Neutros 4.02 1.56 - 6.13 K/ L 12/05/2024 11:34 AM EDT [facility] # Lymphs 0.90(L) 1.18 - 3.74 K/ L 12/05/2024 11:34 AM EDT [facility] # Monos 0.52 0.24 - 0.82 K/ L 12/05/2024 11:34 AM EDT [facility] # Eos 0.27 0.04 - 0.54 K/ L 12/05/2024 11:34 AM EDT [facility] # Baso 0.05 0.01 - 0.08 K/ L 12/05/2024 11:34 AM EDT [facility] Immature Granulocytes-Re lative 0.30 0.00 - 0.60 % 12/05/2024 11:34 AM EDT [facility] # IG 0.02 0.00 - 0.05 K/uL 12/05/2024 11:34 AM EDT [facility] Blood Venipuncture / Unknown 12/05/2024 11:30 AM EDT 12/05/2024 11:30 AM EDT Narrative [facility] - 12/05/2024 11:34 AM EDT [...] NP LAB BLOOD ORDERABLES Final Res ult [facility] [address] [phone] * aPTT (12/05/2024 11:30 AM EDT) aPTT 25.9 22.0 - 32.0 seconds 12/05/2024 11:48 AM EDT [facility] Blood Venipuncture / Unknown 12/05/2024 11:30 AM EDT 12/05/2024 11:30 AM EDT [facility] LAB BLOOD ORDERABLES Final Res ult Performing Organization Address [facility] Co de Phone Number [facility] [address] [phone] * Prothrombin time/INR (12/05/2024 11:30 AM EDT) Protime 10.4 9.0 - 12.0 seconds 12/05/2024 11:48 AM EDT [facility] INR 0.95 0.80 - 1.10 12/05/2024 11:48 AM EDT [facility] Comment: Recommended therapeutic ranges using International Normalized Ratio (INR) are: INR RANGE 2.0 - 3.0 Routine oral anticoagulant therapy 2.5 - 3.5 Oral anticoagulant therapy for patients with thromboembolic events on standard doses of Coumadin and those with mechanical heart valves. Blood Venipuncture / Unknown 12/05/2024 11:30 AM EDT 12/05/2024 11:30 AM EDT [facility] LAB BLOOD ORDERABLES Final Res ult Performing Organization Address [facility] Co de Phone Number [facility] [address] [phone] * (ABNORMAL) Comprehensive metabolic panel (12/05/2024 11:30 AM EDT) Sodium 138 136 - 146 meq/L 12/05/2024 11:55 AM EDT [facility] Potassium 3.9 3.5 - 5.1 meq/L 12/05/2024 11:55 AM EDT [facility] Chloride 106 102 - 112 meq/L 12/05/2024 11:55 AM EDT [facility] CO2 26 21 - 32 meq/L 12/05/2024 11:55 AM EDT [facility] Calcium 9.6 8.5 - 10.1 mg/dL 12/05/2024 11:55 AM EDT [facility] Glucose 109(H) 74 - 106 mg/dL 12/05/2024 11:55 AM [facility] BUN 24(H) 7 - 22 mg/dL 12/05/2024 11:55 AM [facility] Creatinine 1.18(H) 0.55 - 1.02 mg/dL 12/05/2024 11:55 AM [facility] BUN/Creatinine 20 8 - 20 12/05/2024 11:55 AM [facility] Albumin 3.9 3.4 - 5.0 g/dL 12/05/2024 11:55 AM [facility] Alkaline Phosphatase 97 27 - 136 U/L 12/05/2024 11:55 AM [facility] ALT 32 12 - 78 U/L 12/05/2024 11:55 AM [facility] AST 24 5 - 37 U/L 12/05/2024 11:55 AM [facility] Total Bilirubin 0.5 0.2 - 1.3 mg/dL 12/05/2024 11:55 AM [facility] Protein, Total 7.6 6.4 - 8.2 gm/dL 12/05/2024 11:55 AM [facility] Anion Gap 10 9 - 20 12/05/2024 11:55 AM [facility] A/G Ratio 1.1 1.1 - 2.5 12/05/2024 11:55 AM [facility] Globulin 3.7 1.5 - 4.5 g/dL 12/05/2024 11:55 AM [facility] Osmolality Calc 280.3 mOsm/kg 11:55 AM [facility] eGFR (mL/min/1.73m2) 53(L) >=60 mL/min/1.7 3m2 12/05/2024 11:55 AM [facility] Comment:ESTIMATED GFR IS NOT ACCURATE CREATININE CLEARANCE IN PREDICTING GLOMERULAR FILTRATION RATE. ESTIMATED GFR IS NOT APPLICABLE FOR DIALYSIS PATIENTS. Blood Venipuncture / Unknown 12/05/2024 11:30 AM EDT 12/05/2024 11:30 AM EDT Yamel Hurt NP LAB BLOOD ORDERABLES Final Res ult Performing Organization Address [facility] Co de Phone Number [facility] [address] [phone] * ECG 12 lead (12/05/2024 11:03 AM EDT) SYSTOLIC BLOOD PRESSURE (MCT) 127 mmHg GE MUSE DIASTOLIC BLOOD PRESSURE (MCT) 77 mmHg GE MUSE VENTRICULAR RATE EKG/MIN 73 BPM GE MUSE ATRIAL RATE (MCT) 73 BPM GE MUSE ND Interval 142 ms GE MUSE QRS-INTERVAL (MSEC) 66 ms GE MUSE QT Interval 394 ms GE MUSE QTC Interval 434 ms GE MUSE P [place] 38 degrees GE MUSE R AXIS (MCT) 67 degrees GE MUSE T Wave [place] 55 degrees GE MUSE [place] Diagnosis Normal sinus rhythm Low voltage QRS Borderline ECG No previous ECGs available Confirmed by Bhumika URBANO SUZANNE ([id number]) on 12/09/2024 10:52:48 AM GE MUSE 12/05/2024 11:0 3 AM EDT 12/09/2024 10:52 AM EDT Yamel Hurt RADIO NEWS WRITER ECG ORDERABLES Final Result Performing Organization Address [facility] de Phone Number LEXY DENTON * X-ray [...] recommended imaging studies/procedures. At our facility, a [place] marker is positioned over a visible skin [...] family history of breast cancer COMPARISON STUDY: [facility] 08/13/2024 FINDINGS: Craniocaudal and mediolateral [...] Relevant to Health Maintenance Insurance J[place]ETTE SANDERS [id number] [facility] Care Teams Corn Chip Maker Relationship Specialty Start Date End Date Lena Aguilera, KAILN [address] [place] [place] [address] PCP - General Family Medicine 10/28/23 Nick Rasmussen PA-C [address] [place] [address] Orthopedic Surgery 08/07/23 Nimisha Nuñez PA-C [address] [place] [address] Physician Pull Tab Dealer Orthopedic Surgery 02/05/24
--- OUTSIDE RECORDS SUMMARY | 2025-01-19 13:57 | XMS_ITS | Encounter Summary ---
Author Organization [employer] ([place], [place], [place], [place]) Address [address] [place] [address] Care Team Providers Care Bankruptcy Judge Name Role Phone Nick Rasmussen PA-C Unavailable [phone] Lena Aguilera APRN Primary Care Provider [phone] Nimisha Nuñez PA-C Unavailable [phone] Reason for Referral * Mammography (Routine) - New Request Specialty Diagnoses / Procedures Referred By Kai robins Referred To Contact Radiology Diagnoses Screening mammogram for breast cancer Procedures MM digital mammo screen with phyllis bilateral Lena Aguilera APRN [address] [place] [address] Phone: tel: fax: [facility] Breast Imaging [address] [place] [address] Phone: tel: fax: Referral ID Status Reason Start Date Expiration Date V isits Requested Visits Authorized [id number] New Request 08/12/2024 08/12/2025 1 1 Encounter Details Date Type Department Care Team (Late st Contact Info) Description 08/12/2024 Outside Orders [facility] Central Scheduling [address] [place] [address] Lena Aguilera APRN [address] [place] [address] Screening mammogram for breast cancer [...] Date Vijay rded Speak language other than Macedonian at home Not on file 07/19/2023 Want [...] Description 02/11/2025 10:00 AM EDT Office Visit [facility] [place] Orthopedics - [address] [place] [address] Nick Rasmussen PA-C [address] [place] [address] 08/19/2025 9:30 AM EST Appointment [facility] Breast Care [address] [place] [address] documented as of this encounter [...] the next mammogram. At our facility, a [place] marker is positioned over a visible skin [...] cancer documented in this encounter Care Teams Bankruptcy Judge Relationship Specialty Start Date End Date Lena Aguilera APRN [address] [place] [address] PCP - General Family Medicine 10/28/23 Nick Rasmussen PA-C [address] [place] [address] Orthopedic Surgery 08/07/23 Nimisha Nuñez PA-C [address] [place], [place] [id number] Physician Executive Community Planning Orthopedic Surgery 02/05/24 documented as of this encounter
[2025-01-19 14:33] LABS: Hematocrit 38.0 % (37.0-47.0); Hemoglobin 12.6 g/dL (12.2-16.2); Immature Granulocytes % 0.3 %; Mean Corpuscular HGB Conc 33.2 g/dL (31.8-35.4); Mean Corpuscular Hemoglobin 28.6 pg (27.0-31.2); Mean Corpuscular Volume 86.2 fl (81-99); Nucleated Red Blood Cells % 0 %; Platelet Count 207 K/mm3 (142-424); Red Blood Count 4.41 M/mm3 (4.20-5.40); Red Cell Distribution Width-SD 40.6 fL; White Blood Count 5.8 K/mm3 (4.8-10.8)
[2025-01-19 15:34] LABS: Albumin Level 4.3 g/dl (3.5-5.0); Chloride 102 mmol/L (98-107); Potassium 4.1 mmoL/L (3.5-5.1); Sodium 136 mmol/L (136-145)
[2025-01-19 15:36] LABS: Blood Urea Nitrogen 24 mg/dl (7-17); Creatinine,Serum 1.00 mg/dl (0.52-1.04); Estimated Glomerular Filt Rate 56 ml/min (>60); GFR (African American) 68 ML/MIN (>60)
[2025-01-19 15:37] LABS: Alanine Aminotransferase 28 U/L (12-78); Alkaline Phosphatase 94 U/L (38-126); Anion Gap 11.1 mEq/L (5-15); Aspartate Amino Transferase 29 U/L (14-36); Bilirubin,Direct 0.4 mg/dl (0.0-0.4); Bilirubin,Indirect 0.1 mg/dL (0.0-0.9); Bilirubin,Total 0.5 mg/dl (0.2-1.3); Bilirubin,Unconjugated 0.1 mg/dL (0.0-1.1); Calcium 9.8 mg/dl (8.4-10.2); Carbon Dioxide 27 mmol/L (22.0-30.0); Cholesterol 205 mg/dl (140-200); Glucose 165 mg/dl (74-100); Magnesium 1.5 mg/dl (1.6-2.3); Total Protein,Serum 6.9 g/dl (6.3-8.2); Triglycerides 121 mg/dl (30-150)
[2025-01-19 15:38] LABS: HDL Cholesterol 44 mg/dl (40-60)
[2025-01-19 15:55] LABS: Free T4 (Free Thyroxine) 1.37 ng/dl (0.78-2.19)
[2025-01-19 16:09] LABS: Thyroid Stimulating Hormone 1.30 uIU/mL (0.465-4.68)
== END 2025-01-19 23:59 | disposition home or self-care (01) ==
LOC: LAB 13:51
PROVIDERS: PCP Family Medicine; Visit Provider Nurse Practitioner
DX: I07.1 Rheumatic tricuspid insufficiency (principal); R93.1 Abnormal findings on diagnostic imaging of heart and coronary circulation; R73.03 Prediabetes; I20.89 Other forms of angina pectoris; R40.0 Somnolence; I34.0 Nonrheumatic mitral (valve) insufficiency
CPT/HCPCS: 36415; 80048; 80061; 80076; 83735; 84439; 84443; 85025

== ENCOUNTER 2025-01-22 08:43 | Day surgery (SDC) | payer OTHER, SELFPAY ==
[2025-01-22] VITALS (13 sets, daily range): BP systolic 109–132; BP diastolic 57–76; PULSE 50–66; RESP 16–18; TEMP 36.9; O2SAT 93–100; BMI 35.4
--- NOTE | 2025-01-22 07:31 | IR_ITS ---
APPROVED REPORT Patient Location: Outpatient Principal Strategist: JONAS Arrington RT (R) PROCEDURES Left heart catheterization Left ventriculogram Selective coronary angiogram INDICATION Abnormal Myoview, Angina pectoris, Informed consent was obtained prior to the procedure. COMPLICATIONS None Estimated Blood Loss: Less than 10 mls TECHNIQUE One percent lidocaine used to anesthetize the right anterior aspect of the wrist. The right radial artery was accessed via the Seldinger technique. A 6 [place] sheath was placed in the right radial artery. 2.5 mg of Verapamil, 800 mcg of nitroglycerin, 1mg Lidocaine and 5000 U Heparin were given through the arterial sheath. The JL3 catheter was also used to perform left heart catheterization, left ventriculogram and selective coronary angiogram. At the end of the procedure the sheath was removed good hemostasis was achieved using Traclet band, patient was transferred to the postop holding area in stable condition. ANGIOGRAPHIC RESULTS The left main artery Normal The left anterior descending artery Normal The circumflex artery Normal The right coronary artery Large dominant with mid vessel to distal smooth 20% stenosis The GRANDE ventriculogram reveals Normal 65% The left ventricular end-diastolic pressure 15 mmHg IMPRESSION Mild nonflow limiting disease in a large dominant right coronary artery Normal ejection fraction Normal LVEDP PLAN 1. Medical management with risk factor modification Electronically signed by : Tin Velásquez MD 01/22/2025 11:06:28
[2025-01-22] MEDS: 0.9 % SODIUM CHLORIDE 500 ML 25 ML IV (10:50)
[2025-01-22] MEDS: LIDOCAINE 1% 10ML MDV 10 ML IJ (10:50)
[2025-01-22] MEDS: HEPARIN 1,000 UNITS/ML 10ML VIAL (CATH LAB) 5000 UNIT IV (10:51)
[2025-01-22] MEDS: NITROGLYCERIN 800MCG/8ML SYR (CATH LAB) 800 MCG IA (10:51)
[2025-01-22] MEDS: VERAPAMIL 2.5MG/ML 2ML VIAL 2.5 MG IV (10:51)
[2025-01-22] MEDS: HEPARIN 1,000 UNITS/500ML NS (CATH LAB) 3000 UNIT IV (10:51)
[2025-01-22] MEDS: MIDAZOLAM HCL 1MG/ML 5ML VIAL 1 MG IV (11:06)
[2025-01-22] MEDS: FENTANYL 100MCG/2ML VIAL 50 MCG IV (11:06)
[2025-01-22] MEDS: IOPAMIDOL-370 (76%);100ML BOTTLE 50 ML IV (11:47)
== END 2025-01-22 14:30 | disposition home or self-care (01) ==
PROVIDERS: PCP Family Medicine; Visit Provider Internal Medicine
PROC: 4A023N7 Measurement of Cardiac Sampling and Pressure, Left Heart, Percutaneous Approach (ICD-10-PCS; CPT 93452; principal; 2025-01-22 09:45)
DX: I25.119 Atherosclerotic heart disease of native coronary artery with unspecified angina pectoris (principal); R93.1 Abnormal findings on diagnostic imaging of heart and coronary circulation; R73.03 Prediabetes; E03.9 Hypothyroidism, unspecified; I10 Essential (primary) hypertension; R60.9 Edema, unspecified; R06.83 Snoring; R40.0 Somnolence; I34.0 Nonrheumatic mitral (valve) insufficiency; I07.1 Rheumatic tricuspid insufficiency; Z79.82 Long term (current) use of aspirin; Z79.3 Long term (current) use of hormonal contraceptives; Z79.899 Other long term (current) drug therapy; Z88.1 Allergy status to other antibiotic agents; Z88.2 Allergy status to sulfonamides; Z82.49 Family history of ischemic heart disease and other diseases of the circulatory system
CPT/HCPCS: 93458; 99152; C1725; C1769; J1200; J1644; J2003; J3010; J7040; Q9967

== ENCOUNTER 2025-02-24 14:15 | Outpatient (CLI) | payer OTHER, SELFPAY ==
--- OUTSIDE RECORDS SUMMARY | 2025-02-11 10:00 | XMS_ITS | Encounter Summary ---
Author Organization [employer] ([place], [place], [place], [place]) Address [address] [place] [address] Care Team Providers Care Tool Trouble Shooter Name Role Phone Nick Rasmussen PA-C Unavailable [phone] Lena Aguilera APRN Primary Care Provider [phone] Nimisha Nuñez PA-C Unavailable [phone] Reason for Visit * Reason Comments Injections Bilateral knee Encounter Details Date Type Department Care Team (Late st Contact Info) Description 02/11/2025 10:00 AM EDT Office Visit [facility] Orthopedics - [address] [place] [address] Nick Rasmussen PA-C [address] [place] [address] Primary osteoarthritis of left knee (Primary Dx); Primary osteoarthritis of right knee Social History Tobacco Use Types Packs/Day [...] Date Vijay rded Speak language other than Montserratian at home Not on file 07/19/2023 Want [...] Sign Reading Time Taken Comments Blood Pressure 130/79 02/11/2025 9:16 AM EDT Pulse 59 02/11/2025 9:16 AM EDT Temperature - - Respiratory Rate 18 02/11/2025 9:16 AM EDT Oxygen Saturation - - Inhaled Oxygen Concentration - - Weight 93 kg (205 lb) 02/11/2025 9:16 AM EDT Height 160 cm (5' 3 ) 02/11/2025 9:16 AM EDT Body Mass Index 36.31 02/11/2025 9:16 AM EDT documented in this encounter Progress Notes * Nick Rasmussen PA-C - 02/11/2025 10:00 AM EDT NAME: Anisa Hernandes CSN: [id number] : 1965 PCP: Lena Aguilera APRN REASON FOR VISIT Injections (Bilateral knee ) HPI Anisa Hernandes is a 59 y.o. female who presents today for follow-up injections in bilateral Knees Patient's previous injection date: 11/12/24 Previous injection lasted over 3 months Patient rates their pain today as 1 out of 10 Patient denies any new injuries or issues Patient would like to proceed with injections today Patient verbalized consent for today's procedure and answered the following questions as listed below: Are you Diabetic: yes A1c 6 Allergy to Iodine/Betadine/Shell fish: no Allergy to [...] capsule 1,000 mg, oral, 2 times daily isosorbide dinitrate (ISORDIL) 20 mg, 3 times daily levothyroxine (SYNTHROID) 75 mcg, oral, Daily lisinopril-hydroCHLOROthiazide (PRINZIDE,ZESTORETIC) 20-25 mg per tablet 1 tablet, oral, Daily metFORMIN (GLUCOPHAGE) 500 mg, oral, 3 times daily methocarbamoL (ROBAXIN) 750 mg, oral, 3 times daily ALLERGIES Allergies Allergen Reactions Sulfamethoxazole-Trimethoprim PAST MEDICAL/SURGICAL HISTORY Past Medical History: Diagnosis Date Blockage of coronary artery of heart (HCC) Gout Hyperlipemia Hypertension Prediabetes Thyroid disease Past Surgical History: Procedure Laterality Date COLONOSCOPY,POLYPECTOMY N/A 10/28/2023 Procedure: COLONOSCOPY, WITH POLYPECTOMY; Surgeon: Stephani Romero MD; Location: [facility]; Service: Gastroenterology; Laterality: N/A; HYSTERECTOMY KNEE SURGERY CT COLON CA SCRN NOT HI RSK IND [...] no fatigue, no mood swings. Scribe Attestation: Harriet Coleman RTR acted as a scribe and transcribed components of the current encounter under the direction of the Attending Provider. I have not been involved in providing any clinical treatments or patient care. Electronically Signed, HONEY Mendoza OBJECTIVE Vitals: 02/11/25 0916 BP: 130/79 Pulse: 59 Resp: 18 Weight: 93 kg (205 lb) Height: 1.6 m (5' 3 ) [...] Skin: Normal appearance with no discoloration or wounds ASSESSMENT Problem List Items Addressed This Visit Musculoskeletal and Integument Primary osteoarthritis of left knee - Primary Relevant Medications lidocaine (XYLOCAINE) injection 1% (Start on 02/11/2025 10:00 AM) methylPREDNISolone acetate (DEPO-MEDROL) injection 80 mg (Start on 02/11/2025 10:00 AM) methylPREDNISolone acetate (DEPO-MEDROL) injection 80 mg (Start on 02/11/2025 10:00 AM) Other Relevant Orders Arthrocentsis aspiration/inj major jt/bursa w/o us Primary osteoarthritis of right knee Relevant Medications methylPREDNISolone acetate (DEPO-MEDROL) injection 80 mg (Start on 02/11/2025 10:00 AM) methylPREDNISolone acetate (DEPO-MEDROL) injection 80 mg (Start on 02/11/2025 10:00 AM) lidocaine (XYLOCAINE) injection 1% (Start on 02/11/2025 10:00 AM) Other Relevant Orders Arthrocentsis aspiration/inj major jt/bursa w/o us PLAN Return in about 3 months (around 05/14/2025) for bilateral knees injections . Patient will call for left mid foot injection with Dr Thorpe or Dr Gasca. Ice affected joint Watch for signs of infection, return to clinic if symptoms appear Return to clinic sooner if new symptoms occur as discussed or if symptoms worsen Injections performed today, as noted below PROCEDURE Diabetes education: Yes - The risk and benefits of a cortisone injection were discussed with the patient in depth before proceeding. Patient was instructed to closely monitor blood glucose levels over the next week due to levels increasing with steroid injection therapy. Patient verbally acknowledges understanding and consent was obtained. Patient agrees to adjust medications or seek treatment if levels or symptoms of hyperglycemia are not controllable. Steroid Injection: Bilateral Knee Injections: Indication: bilateral [...] best of my knowledge. Adverse effects: None. Injections performed by: Nick Rasmussen PA-C Scribe Attestation: Harriet Coleman RTR acted as a scribe and transcribed components of the current encounter under the direction of the Attending Provider. I have not been involved in providing any clinical treatments or patient care. Electronically Signed, HONEY Mendoza Robert Coleman, PA-C attest that I have examined the above patient. I have dictated the exam, diagnosis, and plan to the scribe listed above to be transcribed into this document. I have supplemented the above documentation as warranted. I attest that I have reviewed the above documentation in its entirety and concur. Electronically SignedNick PA-C 02/11/2025 9:28 AM EDT Leyda Young: Cheryl FINCH / [...] Care Team (Late st Contact Info) Description 05/20/2025 8:30 AM EST Office Visit [facility] Orthopedics - [address] [place] [address] Nick Rasmussen PA-C [address] [place], [place] [id number] 08/19/2025 9:30 AM EST Appointment [facility] [address] [facility] [address] [place] [address] Scheduled Orders Name Type Priority Associated Diagnoses Orde r Schedule Arthrocentsis aspiration/inj major jt/bursa w/o us Procedures Routine Primary osteoarthritis of left knee Ordered: 02/11/2025 Arthrocentsis aspiration/inj major jt/bursa w/o us Procedures Routine Primary osteoarthritis of right knee Ordered: 02/11/2025 documented as of this encounter Visit Diagnoses Diagnosis Primary osteoarthritis of left knee- Primary Primary osteoarthritis of right knee documented in this encounter Administered Medications Inactive Administered Medications - up to 3 most recent administrations Medication Order MAR Action Action Date Dose Rate Site lidocaine (XYLOCAINE) injection 1% 1 mL Once, intra-articular, On Rachael 02/11/25 at 1000, For 1 doseIndications:Primary osteoarthritis of left knee Given 02/11/2025 9:33 AM EDT 1 mL lidocaine (XYLOCAINE) injection 1% 1 mL Once, intra-articular, On Rachael 02/11/25 at 1000, For 1 doseIndications:Primary osteoarthritis of right knee Given 02/11/2025 9:33 AM EDT 1 mL methylPREDNISolone acetate (DEPO-MEDROL) injection 80 mg 80 mg Once, intra-articular, On Rachael 02/11/25 at 1000, For 1 doseIndications:Primary osteoarthritis of left knee Given 02/11/2025 9:29 AM EDT 80 mg methylPREDNISolone acetate (DEPO-MEDROL) injection 80 mg 80 mg Once, intra-articular, On Rachael 02/11/25 at 1000, For 1 doseIndications:Primary osteoarthritis of right knee Given 02/11/2025 9:29 AM EDT 80 mg documented in this encounter Care Teams Tool Trouble Shooter Relationship Specialty Start Date End Date Lena Aguilera, PROGRAM ENGINEER [address] [place] [address] PCP - General Family Medicine 10/28/23 Nick Rasmussen PA-C [address] [place] [address] Orthopedic Surgery 08/07/23 Nimisha Nuñez PA-C [address] [place] [address] Physician Stator Winder Orthopedic Surgery 02/05/24 documented as of this encounter
--- OUTSIDE RECORDS SUMMARY | 2025-02-24 14:18 | XMS_ITS | Encounter Summary ---
Author Organization [employer] ([place], [place], [place], [place]) Address [address] [place] [address] Care Team Providers Care Occupational Analyst Name Role Phone Krystyna Elliott [facility] Primary Care Provider Nick Rasmussen PA-C Unavailable [phone] Lena Aguilera APRN Primary Care Provider [phone] Nimisha Nuñez PA-C Unavailable [phone] Encounter Details Date Type Department Care Team (Late st Contact Info) Description 12/17/2019 Transcribed Document [address] [address] Provider, Audra Hargrove MD Social History Tobacco Use Types Packs/Day Years Used Date Smoking Tobacco: Never Assessed Comments Unknown Sex and Gender Information Value Date Recorded Sex Assigned at Not on file Legal Sex Female 6:57 PM CDT Gender Identity Not on file Sexual Orientation Not on file documented as of this encounter Miscellaneous Notes * Cerner Conversion Note - [facility] Beena ProviderMD - 12/17/2019 12:37 PM EDT [facility] [address] [place] [address] ANISA KATZISE :1965 Visit Time:12/17/2019 What to do next Your Diagnosis Unilateral primary osteoarthritis, right knee, Unilateral primary osteoarthritis, right knee Instructions From Your Care Team You have a prescription for [place] 7.5mg 1 tablet every 6 hours as needed for pain, your next dose is due after 4:30pm refer to discharge orders/orthopedic procedures form for detailed instructions. Follow-Up Appointments Follow Up with DRAGAN FLAHERTY MD-ORT When 12/30/2019 02:15 PM EDT Comments Appointment has been made Where: [address] [place] [address]- Medications What How Much When Instructions Next [...] and water are not available, use hand visitor services assistant. ? Change your dressing as told [...] medicines you take. General instructions ??? Take fdym-xeg-ryxvcap and prescription medicines only as told by [...] fried or sweet foods. ? Take an zacz-xkd-gsdixpm or prescription medicines for constipation. ??? Do [...] 01/04/2006 Document Revised: 04/30/2018 Document Reviewed: 04/30/2018 CellPly Interactive Patient Education ?? 2020 [employer]. acetaminophen and hydrocodone (a SEET a MIN oh fen and imer drokiara KOE done) Hycet, Lorcet, [place], Verdrocet, Vicodin, Xodol, Zamicet What is the [...] may report side effects to FDA at 4-784-RPY-6241. What other drugs will affect acetaminophen and [...] affect acetaminophen and hydrocodone, including prescription and cpoj-uzt-hegpbem medicines, vitamins, and herbal products. Not all [...] to ensure that the information provided by Next Safety. ('Multum') is accurate, up-to-date, and complete, but no guarantee is made to that effect. Drug information contained herein may be time sensitive. Triloq information has been compiled for use by healthcare practitioners and consumers in the [place] and therefore Triloq does not warrant that uses outside of the [place] are appropriate, unless specifically indicated otherwise. Triloq's drug information does not endorse drugs, diagnose patients or recommend therapy. Revivios drug information is an informational resource designed [...] effective or appropriate for any given patient. Triloq does not assume any responsibility for any aspect of healthcare administered with the aid of information Triloq provides. The information contained herein is not intended to cover all possible uses, directions, precautions, warnings, drug interactions, allergic reactions, or adverse effects. If you have questions about the drugs you are taking, check with your doctor, nurse or pharmacist. Copyright 8362-2351 Next Safety. Version: 16.. Revision Date: 07/22/2019. acetaminophen and hydrocodone (a SEET a MIN oh fen and imer droe KOE done) Hycet, Lorcet, [place], Verdrocet, Vicodin, Xodol, Zamicet What is the [...] may report side effects to FDA at 2-863-AYP-0789. What other drugs will affect acetaminophen and [...] affect acetaminophen and hydrocodone, including prescription and phde-woc-ailcxmj medicines, vitamins, and herbal products. Not all [...] to ensure that the information provided by Next Safety. ('Multum') is accurate, up-to-date, and complete, but no guarantee is made to that effect. Drug information contained herein may be time sensitive. Triloq information has been compiled for use by healthcare practitioners and consumers in the [place] and therefore Triloq does not warrant that uses outside of the [place] are appropriate, unless specifically indicated otherwise. Revivios drug information does not endorse drugs, diagnose patients or recommend therapy. [employer] drug information is an informational resource designed [...] effective or appropriate for any given patient. Triloq does not assume any responsibility for any aspect of healthcare administered with the aid of information Triloq provides. The information contained herein is not intended to cover all possible uses, directions, precautions, warnings, drug interactions, allergic reactions, or adverse effects. If you have questions about the drugs you are taking, check with your doctor, nurse or pharmacist. Copyright 3331-7594 Next Safety. Version: 16.01. Revision Date: 07/22/2019. Emergency Awareness [...] Assistance with quitting is available by contacting 9-003-QLHI-NOW. This is a free resource providing counseling, [...] range between ( 1.0 and 7.0 ) [place] #: 0.41 K/uL -- Normal range between ( 0.24 and 0.82 ) Eos #: 0.25 K/uL -- Normal range between ( 0.04 and 0.54 ) [place] %: 7.5 % -- Normal range between [...] was given the opportunity to ask questions. Patient/Veterans Service Officer Name: Patient/Veterans Service Officer Signature: Relationship to Patient: Clinician/Hospital Veterans Service Officer Signature: Date: documented in this encounter Plan of Treatment Upcoming Encounters Date Type Department Care Team (Late st Contact Info) Description 05/20/2025 8:30 AM EST Office Visit [facility] Orthopedics - [address] [place] [address] Nick Rasmussen PA-C [address] [place] [address] 08/19/2025 9:30 AM EST Appointment [facility] [address] [facility] [address] [place] [address] documented as of this encounter Visit Diagnoses Not on filedocumented in this encounter Care Teams Occupational Analyst Relationship Specialty Start Date End Date [facility] [place] [address] PCP - General 09/19/22 10/27/23 Lena Aguilera APRN [address] [place] [address] PCP - General Family Medicine 10/28/23 Nick Rasmussen PA-C [address] [place] [address] Orthopedic Surgery 08/07/23 Nimisha Nuñez PA-C [address] [place] [address] Physician Architecture Consultant Orthopedic Surgery 02/05/24 documented as of this encounter
--- OUTSIDE RECORDS SUMMARY | 2025-02-24 14:18 | XMS_ITS | Encounter Summary ---
Author Organization [employer] ([place], [place], [place], [place]) Address [address] [place] [address] Care Team Providers Care Boot Maker Name Role Phone Krystyna Elliott [facility] Primary Care Provider Nick Rasmussen PA-C Unavailable Lena Aguilera APRN Primary Care Provider [phone] Nimisha Nuñez PA-C Unavailable [phone] Encounter Details Date Type Department Care Team (Late st Contact Info) Description 12/17/2019 Transcribed Document [address] [address] Provider, Audra Hargrove MD Social History Tobacco Use Types Packs/Day Years Used Date Smoking Tobacco: Never Assessed Comments Unknown Sex and Gender Information Value Date Recorded Sex Assigned at Not on file Legal Sex Female 6:57 PM CDT Gender Identity Not on file Sexual Orientation Not on file documented as of this encounter Miscellaneous Notes * Cerner Conversion Note - [facility] Beena ProviderMD - 12/17/2019 12:22 PM EDT [facility] [address] [place] [address] ANISA KATZISE :1965 Visit Time:12/17/2019 What to do next Your Diagnosis Unilateral primary osteoarthritis, right knee, Unilateral primary osteoarthritis, right knee Instructions From Your Care Team You have a prescription for [place] 7.5mg 1 tablet every 6 hours as needed for pain, your next dose is due after 4:30pm refer to discharge orders/orthopedic procedures form for detailed instructions. Follow-Up Appointments Follow Up with DRAGAN FLAHERTY MD-ORT When 12/30/2019 02:15 PM EDT Comments Appointment has been made Where: [place] [address]- Medications What How Much When Instructions Next [...] and water are not available, use hand rigging foreman. ? Change your dressing as told [...] medicines you take. General instructions ??? Take rlia-cmf-makvrwo and prescription medicines only as told by [...] fried or sweet foods. ? Take an rbco-ogw-sijubly or prescription medicines for constipation. ??? Do [...] 01/04/2006 Document Revised: 04/30/2018 Document Reviewed: 04/30/2018 [employer] Interactive Patient Education ?? 2020 Syrinix. acetaminophen and hydrocodone (a SEET a MIN oh fen and imer drokiara KOE done) Hycet, Lorcet, [place], Verdrocet, Vicodin, Xodol, Zamicet What is the [...] may report side effects to FDA at 7-001-SQB-3229. What other drugs will affect acetaminophen and [...] affect acetaminophen and hydrocodone, including prescription and skij-ibm-ywdbmta medicines, vitamins, and herbal products. Not all [...] to ensure that the information provided by ebridge. ('Multum') is accurate, up-to-date, and complete, but no guarantee is made to that effect. Drug information contained herein may be time sensitive. [employer] information has been compiled for use by healthcare practitioners and consumers in the [place] and therefore [employer] does not warrant that uses outside of the [place] are appropriate, unless specifically indicated otherwise. [employer]'s drug information does not endorse drugs, diagnose patients or recommend therapy. Veristorms drug information is an informational resource designed [...] effective or appropriate for any given patient. [employer] does not assume any responsibility for any aspect of healthcare administered with the aid of information [employer] provides. The information contained herein is not intended to cover all possible uses, directions, precautions, warnings, drug interactions, allergic reactions, or adverse effects. If you have questions about the drugs you are taking, check with your doctor, nurse or pharmacist. Copyright 1899-9946 ebridge. Version: 16.. Revision Date: 07/22/2019. acetaminophen and hydrocodone (a SEET a MIN oh fen and imer droe KOE done) Hycet, Lorcet, [place], Verdrocet, Vicodin, Xodol, Zamicet What is the [...] may report side effects to FDA at 4-611-NTB-8070. What other drugs will affect acetaminophen and [...] affect acetaminophen and hydrocodone, including prescription and egxb-vjr-xikqrgu medicines, vitamins, and herbal products. Not all [...] to ensure that the information provided by ebridge. ('Multum') is accurate, up-to-date, and complete, but no guarantee is made to that effect. Drug information contained herein may be time sensitive. [employer] information has been compiled for use by healthcare practitioners and consumers in the [place] and therefore [employer] does not warrant that uses outside of the [place] are appropriate, unless specifically indicated otherwise. Veristorms drug information does not endorse drugs, diagnose patients or recommend therapy. Safer Minicabs drug information is an informational resource designed [...] effective or appropriate for any given patient. [employer] does not assume any responsibility for any aspect of healthcare administered with the aid of information [employer] provides. The information contained herein is not intended to cover all possible uses, directions, precautions, warnings, drug interactions, allergic reactions, or adverse effects. If you have questions about the drugs you are taking, check with your doctor, nurse or pharmacist. Copyright 8460-1468 ebridge. Version: 16.01. Revision Date: 07/22/2019. Emergency Awareness [...] Assistance with quitting is available by contacting 5-680-BKFW-NOW. This is a free resource providing counseling, [...] range between ( 1.0 and 7.0 ) [place] #: 0.41 K/uL -- Normal range between ( 0.24 and 0.82 ) Eos #: 0.25 K/uL -- Normal range between ( 0.04 and 0.54 ) [place] %: 7.5 % -- Normal range between [...] was given the opportunity to ask questions. Patient/Core Java Engineer Name: Patient/Core Java Engineer Signature: Relationship to Patient: Clinician/Hospital Core Java Engineer Signature: Date: Electronically signed by Audra Woodruff Conversion Core Winder Machine Operator Cerner at 11/21/2022 11:16 AM CDT documented in this encounter Plan of Treatment Upcoming Encounters Date Type Department Care Team (Late st Contact Info) Description 05/20/2025 8:30 AM EST Office Visit [facility] Orthopedics - [address] [place] [address] Nick Rasmussen PA-C [address] [place] [address] 08/19/2025 9:30 AM EST Appointment [facility] [address] [facility] [address] [place] [address] documented as of this encounter Visit Diagnoses Not on filedocumented in this encounter Care Teams Boot Maker Relationship Specialty Start Date End Date [facility] [place] [address] PCP - General 09/19/22 10/27/23 Lena Aguilera APRN [address] [place] [address] PCP - General Family Medicine 10/28/23 Nick Rasmussen PA-C [address] [place] [address] Orthopedic Surgery 08/07/23 Nimisha Nuñez PA-C [address] [place] [address] Physician Multifocal Lens Inspector Orthopedic Surgery 02/05/24 documented as of this encounter
--- OUTSIDE RECORDS SUMMARY | 2025-02-24 14:18 | XMS_ITS | Encounter Summary ---
Author Organization [employer] ([place], [place], [place], [place]) Address [address] [place] [address] Care Team Providers Care Agriculture Research Director Name Role Phone Krystyna Elliott [facility] Primary Care Provider Nick Rasmussen PA-C Unavailable [phone] Lena Aguilera APRN Primary Care Provider [phone] Nimisha Nuñez PA-C Unavailable [phone] Encounter Details Date Type Department Care Team (Late st Contact Info) Description 12/03/2019 Transcribed Document [facility] 1 [place] [address] Provider, Audra Hargrove MD Social History Tobacco Use Types Packs/Day Years Used Date Smoking Tobacco: Never Assessed Comments Unknown Sex and Gender Information Value Date Recorded Sex Assigned at Not on file Legal Sex Female 6:57 PM CDT Gender Identity Not on file Sexual Orientation Not on file documented as of this encounter Miscellaneous Notes * Cerner Conversion Note - [facility] Beena ProviderMD - 12/03/2019 9:36 AM [...] Source : Stated Height Entry Format : [place] Height, Feet : 5 ft(Converted to: 152 cm, 60 Inch) Height, Inches : 3 Inch(Converted to: 0 ft 3 Inch, 7.62 cm) Clinical Height : 160.02 cm Weight Source : Standing scale Weight Entry Format : [place] Clinical Dosing Weight : 100.91 kg Weight, Pounds : 222 lb Body Surface Area (BSA) : 2.02 m2 Body Mass Index : 39.4 kg/m2 (ME) [place] Body Weight : 52 kg ROSALINE MCKEON [...] ROSALINE MCKEON RN - 12/03/2019 8:36 EDT [place] Suicide Severity Rating Scale (C-SSRS) CSSRS Past [...] #2 Relationship : - Primary Language : Guatemalan Communication Barrier : None ROSALINE MCKEON RN - 12/03/2019 8:36 EDT Rashi Scale Rashi Sensory Perception : No impairment Rashi Moisture : Rarely moist Rashi Activity : Walks frequently Rashi Mobility : No limitation Rashi Nutrition : Excellent Rashi Friction and Shear : No apparent problem Rashi Score : 23 ROSALINE MCKOEN RN - 12/03/2019 8:36 EDT Sleep Apnea [...] ROSALINE MCKEON RN - 12/03/2019 8:36 EDT Electronically signed by Audra Woodruff Conversion Senior Mobile Application Developer Cerner at 11/21/2022 11:15 AM CDT documented in this encounter Plan of Treatment Upcoming Encounters Date Type Department Care Team (Late st Contact Info) Description 05/20/2025 8:30 AM EST Office Visit [facility] Orthopedics - [address] [place] [address] Nick Rasmussen PA-C [address] [place] [address] 08/19/2025 9:30 AM EST Appointment [facility] [address] [facility] [address] [place] [address] documented as of this encounter Visit Diagnoses Not on filedocumented in this encounter Care Teams Agriculture Research Director Relationship Specialty Start Date End Date Krystyna Elliott [facility] [place] [address] PCP - General 09/19/22 10/27/23 Lena Aguilera APRN [address] [place] [address] PCP - General Family Medicine 10/28/23 Nick Rasmussen PA-C [address] [place] [address] Orthopedic Surgery 08/07/23 Nimisha Nuñez PA-C [address] [place] [address] Physician Dat Instructor Orthopedic Surgery 02/05/24 documented as of this encounter
--- OUTSIDE RECORDS SUMMARY | 2025-02-24 14:18 | XMS_ITS | Encounter Summary ---
Author Organization [employer] ([place], [place], [place], [place]) Address [address] [place] [address] Care Team Providers Care Tire Rebuilder Name Role Phone Krystyna Elliott [facility] Primary Care Provider Nick Rasmussen PA-C Unavailable [phone] Lena Aguilera APRN Primary Care Provider [phone] Nimisha Nuñez PA-C Unavailable [phone] Encounter Details Date Type Department Care Team (Late st Contact Info) Description 12/17/2019 Transcribed Document [facility] 1 [place] [address] Provider, Audra Hargrove MD Social History Tobacco Use Types Packs/Day Years Used Date Smoking Tobacco: Never Assessed Comments Unknown Sex and Gender Information Value Date Recorded Sex Assigned at Not on file Legal Sex Female 6:57 PM CDT Gender Identity Not on file Sexual Orientation Not on file documented as of this encounter Miscellaneous Notes * Cerner Conversion Note - [facility] Beena ProviderMD - 12/17/2019 10:36 AM EDT CAROLYN Main OR PACU Summary Primary Physician: DRAGAN FLAHERTY MD-ORT Finalized Date/Time: 12/17/19 10:50:47 Pt. Name: MAGALYANISA WALLISE /Sex: 1965 Female Med Rec #: [id number] Physician: DRAGAN FLAHERTY MD-ORT Financial #: [id number] Pt. Type: O Room/Bed: [facility]/4 Admit/Disch: 12/17/19 04:47:00 - Institution: [facility] Main OR PACU Case Times Entry 1 [...] Description 05/20/2025 8:30 AM EST Office Visit [facility] - [facility] [address] [place] [address] Nick Rasmussen PA-C [address] [place] [address] 08/19/2025 9:30 AM EST Appointment [facility] [address] [address] documented as of this encounter Visit Diagnoses Not on filedocumented in this encounter Care Teams Tire Rebuilder Relationship Specialty Start Date End Date Parks[place]kiara [facility] At [address] [address] PCP - General 09/19/22 10/27/23 Lena Aguilera APRN [address] [place] [address] [place] [address] PCP - General Family Medicine 10/28/23 Nick Rasmussen PA-C [address] [place] [address] Orthopedic Surgery 08/07/23 Nimisha Nuñez PA-C 211 [place] [address] Physician Fuel Operator Orthopedic Surgery 02/05/24 documented as of this encounter
--- OUTSIDE RECORDS SUMMARY | 2025-02-24 14:18 | XMS_ITS | Encounter Summary ---
Author Organization [employer] ([place], [place], [place], [place]) Address [address] [place] [address] Care Team Providers Care Port Cdl A Driver Name Role Phone Krystyna Elliott [facility] Primary Care Provider Nick Rasmussen PA-C Unavailable [phone] Lena Aguilera APRN Primary Care Provider [phone] Nimisha Nuñez PA-C Unavailable [phone] Encounter Details Date Type Department Care Team (Late st Contact Info) Description 12/17/2019 Transcribed Document [facility] 1 [place] [address] Provider, Audra Hargrove MD Social History Tobacco Use Types Packs/Day Years Used Date Smoking Tobacco: Never Assessed Comments Unknown Sex and Gender Information Value Date Recorded Sex Assigned at Not on file Legal Sex Female 6:57 PM CDT Gender Identity Not on file Sexual Orientation Not on file documented as of this encounter Miscellaneous Notes * Cerner Conversion Note - [facility] Beena ProviderMD - 12/17/2019 9:10 AM EDT Pre Procedure Adult Entered On: 12/17/2019 8:16 EDT Performed On: 12/17/2019 8:10 EDT by Paola Lacy RN Height and Weight, Clinical Dosing Height Source : Stated Height Entry Format : [place] Height, Feet : 5 ft(Converted to: 152 cm, 60 Inch) Height, Inches : 3 Inch(Converted to: 0 ft 3 Inch, 7.62 cm) Clinical Height : 160.02 cm Weight Source : Standing scale Weight Entry Format : [place] Clinical Dosing Weight : 101.36 kg Weight, Pounds : 223 lb Body Surface Area (BSA) : 2.03 m2 Body Mass Index : 39.6 kg/m2 (HI) [place] Body Weight : 52 kg Paola Lacy [...] Where was the COVID-19 Testing completed? : [facility] Where are the test results? : In [...] Paola Lacy RN - 12/17/2019 8:10 EDT [place] Suicide Severity Rating Scale (C-SSRS) CSSRS Past [...] Obtained From : Patient Primary Language : Moroccan Preferred Communication Mode : Verbal Communication Barrier [...] Scale Risk Level : 25-45 Medium Risk [place] Fall Interventions : Adequate lighting, Bed in [...] 8:10 EDT Pain Scale Intensity : 3 [place] Lacy RN - 12/17/2019 8:10 EDT Image 4 - Images currently included in the form version of this document have not been included in the text rendition version of the form. [place] Coma Cosme Best Motor Response : Obey commands [place] Best Verbal Response : Oriented [place] Eye Opening Response : Spontaneous [place] Coma Score : 15 Paola Lacy RN - 12/17/2019 8:10 EDT documented in this encounter Plan of Treatment Upcoming Encounters Date Type Department Care Team (Late st Contact Info) Description 05/20/2025 8:30 AM EST Office Visit [facility] Orthopedics - [address] [place] [address] Nick Rasmussen PA-C [address] [place] [address] 08/19/2025 9:30 AM EST Appointment [facility] Breast [facility] 160 [facility] [address] [place] [address] documented as of this encounter Visit Diagnoses Not on filedocumented in this encounter Care Teams Port Cdl A Driver Relationship Specialty Start Date End Date [facility] [place] [address] PCP - General 09/19/22 10/27/23 Lena Aguilera APRN [address] [place] [address] PCP - General Family Medicine 10/28/23 Nick Rasmussen PA-C [address] [place] [address] Orthopedic Surgery 08/07/23 Nimisha Nuñez PA-C [address] [place], [place] [address] Physician Packer And Carry Out Orthopedic Surgery 02/05/24 documented as of this encounter
--- OUTSIDE RECORDS SUMMARY | 2025-02-24 14:18 | XMS_ITS | Encounter Summary ---
Author Organization [employer] ([place], [place], [place], [place]) Address [address] [address] Care Team Providers Care Playground Director Name Role Phone Krystyna Elliott [facility] Primary Care Provider Nick Rasmussen PA-C Unavailable [phone] Lena Aguilera APRN Primary Care Provider [phone] Nimisha Nuñez PA-C Unavailable [phone] Encounter Details Date Type Department Care Team (Late st Contact Info) Description 12/17/2019 Transcribed Document [facility] 1 [place] [address] Provider, Audra Hargrove MD Social [...] * Cerner Conversion Note - [facility] Beena Ogden MD - 12/17/2019 11:28 AM [...] and water are not available, use hand guest services officer. ? Change your dressing as told by [...] medicines you take. General instructions ??? Take volk-nej-noiydeo and prescription medicines only as told by [...] fried or sweet foods. ? Take an pgdf-bwn-qjmrzjh or prescription medicines for constipation. ??? Do [...] 01/04/2006 Document Revised: 04/30/2018 Document Reviewed: 04/30/2018 [employer] Interactive Patient Education ? 2019 IPX. documented in this encounter Plan of Treatment Upcoming Encounters Date Type Department Care Team (Late st Contact Info) Description 05/20/2025 8:30 AM EST Office Visit [facility] Orthopedics - [address] [place] [address] Nick Rasmussen PA-C [address] [place], [place] [id number] 08/19/2025 9:30 AM EST Appointment [facility] 160 [facility] [address] [place] [address] documented as of this encounter Visit Diagnoses Not on filedocumented in this encounter Care Teams Playground Director Relationship Specialty Start Date End Date Allenkiara [facility] [place] [address] PCP - General 09/19/22 10/27/23 Lena Aguilera, FILM HISTORIAN [address] [place] [address] PCP - General Family Medicine 10/28/23 Nick Rasmussen PA-C 211 [place] [address] Orthopedic Surgery 08/07/23 Nimisha Nuñez PA-C 211 [place] [address] Physician Water Tester Orthopedic Surgery 02/05/24 documented as of this encounter
--- OUTSIDE RECORDS SUMMARY | 2025-02-24 14:18 | XMS_ITS | Encounter Summary ---
Author Organization [employer] in 2014[employer] ([place], [place], [place], [place]) Address [address] [place] [address] Care Team Providers Care Shop Repairer Name Role Phone Krystyna Elliott [facility] Primary Care Provider Nick Rasmussen PA-C Unavailable [phone] Lena Aguilera APRN Primary Care Provider [phone] Nimisha Nuñez PA-C Unavailable [phone] Encounter Details Date Type Department Care Team (Late st Contact Info) Description 12/17/2019 Transcribed Document [facility] 1 [place] [address] Provider, Audra Hargrove MD Social History Tobacco Use Types Packs/Day Years Used Date Smoking Tobacco: Never Assessed Comments Unknown Sex and Gender Information Value Date Recorded Sex Assigned at Not on file Legal Sex Female 6:57 PM CDT Gender Identity Not on file Sexual Orientation Not on file documented as of this encounter Miscellaneous Notes * Cerner Conversion Note - [facility] Beena Ogden MD - 12/17/2019 10:59 AM EDT DATE OF PROCEDURE: 12/17/2019 SURGEON: Rell Del Cid MD PREOPERATIVE DIAGNOSIS: Right knee medial meniscus 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 POSTOPERATIVE DIAGNOSIS: Right knee medial meniscus 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 PROCEDURE PERFORMED: Right knee diagnostic arthroscopy with partial medial meniscectomy. BUSINESS ADVISOR: Mary Valencia CFA ANESTHESIA: General. ESTIMATED BLOOD [...] tolerated the procedure well without any complications. /[id number] Rell Sylvain Del Cid MD ASC/AQ / ASC / MODL /[id number] documented in this encounter Plan of Treatment Upcoming Encounters Date Type Department Care Team (Late st Contact Info) Description 05/20/2025 8:30 AM EST Office Visit [facility] Orthopedics - [address] [place] [address] Nick Rasmussen PA-C [address] [place] [address] 08/19/2025 9:30 AM EST Appointment [facility] 160 [facility] [address] [place] [address] documented as of this encounter Visit Diagnoses Not on filedocumented in this encounter Care Teams Shop Repairer Relationship Specialty Start Date End Date [place] [address] [place] [address] PCP - General 09/19/22 10/27/23 Lena Aguilera APRN [address] [place] [address] PCP - General Family Medicine 10/28/23 Nick Rasmussen PA-C [address] [place] [address] Orthopedic Surgery 08/07/23 Nimisha Nuñez PA-C [address] [place] [address] Physician Plate Glass Installer Orthopedic Surgery 02/05/24 documented as of this encounter
--- OUTSIDE RECORDS SUMMARY | 2025-02-24 14:18 | XMS_ITS | Encounter Summary ---
Author Organization [employer] ([place], [place], [place], [place]) Address [address] [place] [address] Care Team Providers Care Legal Billing Coordinator Name Role Phone Krystyna Elliott [facility] Primary Care Provider Nick Rasmussen PA-C Unavailable [phone] Lena Aguilera APRN Primary Care Provider [phone] Nimisha Nuñez PA-C Unavailable [phone] Encounter Details Date Type Department Care Team (Late st Contact Info) Description 12/17/2019 Transcribed Document [facility] 1 [place] [address] Provider, Audra Hargrove MD Social History Tobacco Use Types Packs/Day Years Used Date Smoking Tobacco: Never Assessed Comments Unknown Sex and Gender Information Value Date Recorded Sex Assigned at Not on file Legal Sex Female 6:57 PM CDT Gender Identity Not on file Sexual Orientation Not on file documented as of this encounter Miscellaneous Notes * Cerner Conversion Note - [facility] Beena ProviderMD - 12/17/2019 10:36 AM EDT CAROLYN Main OR IntraOp Summary Primary Physician: DRAGAN FLAHERTY MD-ORT Finalized Date/Time: 12/17/19 11:02:35 Pt. Name: ANISA KATZISE /Sex: 1965 Female Med Rec #: [id number] Physician: DRAGAN FLAHERTY MD-ORT Financial #: [id number] Pt. Type: O Room/Bed: [facility]/4 Admit/Disch: 12/17/19 04:47:00 - Institution: [facility] IntraOp Case Attendance Entry 1 Entry 2 Entry 3 Case Attendee DRAGAN FLAHERTY WICKER, KAREN KIM, STRADDLE BUGGY OPERATOR Esteban Abbasi RN MD-ORT Role Performed Surgeon/Proceduralist, STRADDLE BUGGY OPERATOR/Nurse Biomedical Engineering Internship Wire Weaving Loom Setter, First First Time In 12/17/19 09:22:00 12/17/19 [...] Kian Ornelas, Scrub Assist Tech Role Performed Wire Weaving Loom Setter, Second Director Of Photography, First Scrub, Second Time In 12/17/19 09:22:00 [...] SJKiara IntraOp Case Attendance Audit 12/17/19 10:06:09 Fruit Culler: [id number] Modifier: [id number] 1 <*> Procedure Knee Arthroscopy 2 <*> Procedure Knee Arthroscopy 3 <*> Procedure Knee Arthroscopy 4 <*> Procedure Knee Arthroscopy 5 <*> Procedure Knee Arthroscopy 6 <*> Procedure Knee Arthroscopy 7 <*> Procedure Knee Arthroscopy 8 <*> Procedure Knee Arthroscopy 12/17/19 10:05:50 Fruit Culler: [id number] Modifier: [id number] 1 <+> Time Out 1 <*> Procedure [...] 8 <*> Procedure Knee Arthroscopy 12/17/19 09:38:00 Fruit Culler: [id number] Modifier: [id number] 1 <*> Procedure Knee Arthroscopy 2 <*> [...] 8 <*> Procedure Knee Arthroscopy 12/17/19 09:37:09 Fruit Culler: [id number] Modifier: [id number] 1 <+> Time In 1 <*> Procedure [...] SJE IntraOp Case Times Audit 12/17/19 10:04:48 Fruit Culler: [id number] Modifier: [id number] <+> 1 Out Room Time <+> 1 Stop Time <+> 1 Stop Time 12/17/19 09:37:54 Fruit Culler: [id number] Modifier: [id number] <+> 1 Start Time SJE IntraOp Communication [...] SJE IntraOp Counts Verification Audit 12/17/19 10:06:10 Fruit Culler: [id number] Modifier: [id number] 1 <*> Procedure Knee Arthroscopy, Knee Arthroscopy 12/17/19 10:05:53 Fruit Culler: [id number] Modifier: [id number] 1 <*> Procedure Knee Arthroscopy SJE IntraOp [...] SJE IntraOp Counts Final Audit 12/17/19 10:06:11 Fruit Culler: [id number] Modifier: [id number] 1 <*> Procedure Knee Arthroscopy, Knee Arthroscopy 12/17/19 10:05:55 Fruit Culler: [id number] Modifier: [id number] 1 <*> Procedure Knee Arthroscopy SJE IntraOp [...] RN 12/17/19 09:44:01 SJE IntraOp General Case Senior Director Of [employer] 1 Case Information OR OR 10 SJE [...] 0.5% 30ml vial Xylocaine 0.5% w/ - [id number] epinephrine 1:200,000 50ml vial - [id number] Combo Med List 1 - Combo Med [...] Comments: ZOYA LEG OSBORN ON RIGHT LEG; CORD:USE Cord Blood Bank LEG OSBORN ON LEFT SIDE SJE IntraOp Patient Positioning Audit 12/17/19 10:06:11 Fruit Culler: [id number] Modifier: [id number] 1 <*> Procedure Knee Arthroscopy, Knee Arthroscopy 12/17/19 10:05:54 Fruit Culler: [id number] Modifier: [id number] 1 <*> Procedure 1 <*> Procedure Knee [...] SJE IntraOp Sign In Audit 12/17/19 09:52:16 Fruit Culler: [id number] Modifier: [id number] <+> 1 Medication Checks Completed <+> 1 [...] SJE IntraOp Skin Prep Audit 12/17/19 10:06:11 Fruit Culler: [id number] Modifier: [id number] 1 <*> Procedure Knee Arthroscopy, Knee Arthroscopy 12/17/19 10:05:55 Fruit Culler: [id number] Modifier: [id number] 1 <*> Procedure Knee Arthroscopy SJE IntraOp [...] SJE IntraOp Surgical Procedures Audit 12/17/19 10:06:46 Fruit Culler: [id number] Modifier: [id number] 1 <*> Procedure Knee Arthroscopy 1 <*> [...] Padded Under Cuff Applied By Mary Valencia, Slackman Removed By Mary Valencia, Slackman Times Start Time 12/17/19 09:36:00 Stop Time 12/17/19 09:54:00 Last Modified By: Esteban Abbasi RN 12/17/19 10:08:40 Case Comments <None> Finalized By: Flor Tapia RN Document Signatures Signed By: Esteban Abbasi RN 12/17/19 10:09 Flor Tapia RN 12/17/19 11:02 Unfinalized History Date/Time Username Reason for Unfinalizing Freetext Reason for Unfinalizing 12/17/19 10:51 [id number] Correct Documentation documented in this encounter Plan of Treatment Upcoming Encounters Date Type Department Care Team (Late st Contact Info) Description 05/20/2025 8:30 AM EST Office Visit [facility] Orthopedics - [address] [place] [address] Nick Rasmussen PA-C [address] [place] [address] 08/19/2025 9:30 AM EST Appointment [facility] 160 [facility] [address] [place] [address] documented as of this encounter Visit Diagnoses Not on filedocumented in this encounter Care Teams Legal Billing Coordinator Relationship Specialty Start Date End Date [facility] At [address] [address] PCP - General 09/19/22 10/27/23 Lena Aguilera, PROFESSOR OF HISTORICAL THEOLOGY [address] [place] [address] PCP - General Family Medicine 10/28/23 Nick Rasmussen PA-C [address] [place] [address] Orthopedic Surgery 08/07/23 Nimisha Nuñez PA-C [address] [place] [address] Physician Director Of Photography Orthopedic Surgery 02/05/24 documented as of this encounter
--- OUTSIDE RECORDS SUMMARY | 2025-02-24 14:18 | XMS_ITS | Encounter Summary ---
Author Organization [employer] ([place], [place], [place], [place]) Address [address] [place] [address] Care Team Providers Care Box Toe Cementer Name Role Phone Krystyna Elliott [facility] Primary Care Provider Nick Rasmussen PA-C Unavailable [phone] Lena Aguilera APRN Primary Care Provider [phone] Nimisha Nuñez PA-C Unavailable [phone] Encounter Details Date Type Department Care Team (Late st Contact Info) Description 12/17/2019 Transcribed Document [facility] 1 [place] [address] Provider, Audra Hargrove MD Social History Tobacco Use Types Packs/Day Years Used Date Smoking Tobacco: Never Assessed Comments Unknown Sex and Gender Information Value Date Recorded Sex Assigned at Not on file Legal Sex Female 6:57 PM CDT Gender Identity Not on file Sexual Orientation Not on file documented as of this encounter Miscellaneous Notes * Cerner Conversion Note - [facility] Beena ProviderMD - 12/17/2019 10:36 AM EDT CAROLYN Main OR PreOp Summary Primary Physician: DRAGAN FLAHERTY MD-ORT Finalized Date/Time: 12/17/19 10:46:48 Pt. Name: ANISA KATZISE /Sex: 1965 Female Med Rec #: [id number] Physician: DRAGAN FLAHERTY MD-ORT Financial #: [id number] Pt. Type: O Room/Bed: [facility]/4 Admit/Disch: 12/17/19 04:47:00 - Institution: [facility] PreOp Case Times Entry 1 In Preop 12/17/19 06:50:00 Ready for Holding n/a Room Patient Ready for 12/17/19 08:36:00 Surgery Patient Out of Preop 12/17/19 09:30:00 Patient Out of n/a Holding Room Last Modified By: ELIGIO SCALES 12/17/19 10:46:47 [facility] PreOp Case Times Audit 12/17/19 10:46:47 Seamless Hosiery Knitter: SHALINI Modifier: [email or web address] <+> 1 Patient Out of Preop 12/17/19 08:36:21 Seamless Hosiery Knitter: SHALINI Modifier: [email or web address] <+> 1 Patient Ready for Surgery Finalized By: ELIGIO SCALES Document Signatures Signed By: ELIGIO SCALES 12/17/19 10:46 Electronically signed by Ranjan [facility] Conversion Power Project Manager Cerner at 11/21/2022 11:15 AM CDT documented in this encounter Plan of Treatment Upcoming Encounters Date Type Department Care Team (Late st Contact Info) Description 05/20/2025 8:30 AM EST Office Visit [facility] Orthopedics - [address] [place] [address] Nick Rasmussen PA-C [address] [place] [address] 08/19/2025 9:30 AM EST Appointment [facility] Breast [facility] 160 [facility] [address] [place] [address] documented as of this encounter Visit Diagnoses Not on filedocumented in this encounter Care Teams Box Toe Cementer Relationship Specialty Start Date End Date Krystyna Elliott [facility] At [address] [address] PCP - General 09/19/22 10/27/23 Lena Aguilera, KALIN [address] [place] [address] PCP - General Family Medicine 10/28/23 Nick Rasmussen PA-C 211 [place], [place] [id number] Orthopedic Surgery 08/07/23 Nimisha Nuñez PA-C [address] [place], [place] [address] Physician Lie Detector Operator Orthopedic Surgery 02/05/24 documented as of this encounter
--- OUTSIDE RECORDS SUMMARY | 2025-02-24 14:18 | XMS_ITS | Encounter Summary ---
Author Organization [employer] ([place], [place], [place], [place]) Address [address] [place] [address] Care Team Providers Care Director Of Partnerships Name Role Phone Krystyna Elliott [facility] Primary Care Provider Nick Rasmussen PA-C Unavailable Lena Aguilera APRN Primary Care Provider [phone] Nimisha Nuñez PA-C Unavailable [phone] Encounter Details Date Type Department Care Team (Late st Contact Info) Description 12/17/2019 Transcribed Document [facility] [address] [place] [address] Provider, Audra Hargrove MD Social History Tobacco Use Types Packs/Day Years Used Date Smoking Tobacco: Never Assessed Comments Unknown Sex and Gender Information Value Date Recorded Sex Assigned at Not on file Legal Sex Female 6:57 PM CDT Gender Identity Not on file Sexual Orientation Not on file documented as of this encounter Miscellaneous Notes * Cerner Conversion Note - [facility] Beena ProviderMD - 12/17/2019 10:36 AM EDT [facility] Main OR PostOp Summary Primary Physician: DRAGAN FLAHERTY MD-ORT Finalized Date/Time: 12/17/19 11:48:29 Pt. Name: ANISA KATZISE /Sex: 1965 Female Med Rec #: [id number] Physician: DRAGAN FLAHERTY MD-ORT Financial #: [id number] Pt. Type: O Room/Bed: [facility]/4 Admit/Disch: 12/17/19 04:47:00 - Institution: [facility] Main OR PostOp Case Times Entry 1 In PACU II 12/17/19 10:40:00 Ready for PACU II 12/17/19 11:48:00 Discharge Discharge from PACU 12/17/19 11:48:00 II Last Modified By: Erin Orta RN 12/17/19 11:48:22 [facility] Main OR PostOp Case Times Audit 12/17/19 11:48:22 Staff Consultant: [email or web address] Modifier: [email or web address] <+> Ready for PACU II Discharge 1 <*> In PACU II 12/17/19 10:00:00 1 <+> Discharge from PACU II Finalized By: Erin Orta RN Document Signatures Signed By: Erin Orta RN 12/17/19 11:48 documented in this encounter Plan of Treatment Upcoming Encounters Date Type Department Care Team (Late st Contact Info) Description 05/20/2025 8:30 AM EST Office Visit [facility]oped[facility] - [address] [place] [address] Nick Rasmussen PA-C [address] [place] [address] 08/19/2025 9:30 AM EST Appointment [facility] [address] [facility] [address] [place] [address] documented as of this encounter Visit Diagnoses Not on filedocumented in this encounter Care Teams Director Of Partnerships Relationship Specialty Start Date End Date Krystyna Elliott [facility] At [address] [address] PCP - General 09/19/22 10/27/23 Lena Aguilera, KALIN [address] [place] [address] [place] [phone] PCP - General Family Medicine 10/28/23 Nick Rasmussen PA-C [address] [place] [address] Orthopedic Surgery 08/07/23 Nimisah Nuñez PA-C [address] [place] [address] Physician [facility] Orthopedic Surgery 02/05/24 documented as of this encounter
--- OUTSIDE RECORDS SUMMARY | 2025-02-24 14:18 | XMS_ITS | Encounter Summary ---
Author Organization [employer] ([place], [place], [place], [place]) Address [address] [place] [address] Care Team Providers Care Leadership Development Consultant Name Role Phone Krystyna Elliott [facility] Primary Care Provider Nick Rasmussen PA-C Unavailable [phone] Lena Aguilera APRN Primary Care Provider [phone] Nimisha Nuñez PA-C Unavailable [phone] Encounter Details Date Type Department Care Team (Late st Contact Info) Description 12/03/2019 Transcribed Document [facility] [address] [place] [address] Provider, Audra Hargrove MD Social History Tobacco Use Types Packs/Day Years Used Date Smoking Tobacco: Never Assessed Comments Unknown Sex and Gender Information Value Date Recorded Sex Assigned at Not on file Legal Sex Female 6:57 PM CDT Gender Identity Not on file Sexual Orientation Not on file documented as of this encounter Miscellaneous Notes * Cerner Conversion Note - [facility] Beena ProviderMD - 12/03/2019 9:50 AM EDT Patient: ANISA KATZ Age: 54 Years Sex: Female : 1965 Chief Complaint Right Knee Pain Primary Care Provider NEYDA JOINER (REF), [employer] SUPERVISOR-FAM History of Present Illness This patient is [...] # 1.08 K/uL (Low) 12/03/2019 08:43 EDT [place] % 7.5 % 12/03/2019 08:43 EDT [place] # 0.41 K/uL 12/03/2019 08:43 EDT Eos % 4.6 % 12/03/2019 08:43 EDT Eos # 0.25 K/uL 12/03/2019 08:43 EDT Baso % 0.7 % 12/03/2019 08:43 EDT Baso # 0.04 K/uL 12/03/2019 08:43 EDT Slide Review No 12/03/2019 08:43 EDT IG# 0 x10(3)/uL 12/03/2019 08:43 EDT IG% 0 % 12/03/2019 08:43 EDT Electronically signed by Sinan Woodruff Conversion Coater Operator Insulation Board Cerner at 11/21/2022 11:15 AM CDT documented in this encounter Plan of Treatment Upcoming Encounters Date Type Department Care Team (Late st Contact Info) Description 05/20/2025 8:30 AM EST Office Visit [facility] Orthopedics - [address] [place] [address] Nick Rasmussen PA-C [address] [place] [address] 08/19/2025 9:30 AM EST Appointment [facility] Breast [facility] [address] [facility] [address] [place] [address] documented as of this encounter Visit Diagnoses Not on filedocumented in this encounter Care Teams Leadership Development Consultant Relationship Specialty Start Date End Date [facility] At [address] [address] PCP - General 09/19/22 10/27/23 Lena Aguliera, CAVALRY SCOUT [address] [place] [address] PCP - General Family Medicine 10/28/23 Nick Rasmussen PA-C [address] [place] [address] Orthopedic Surgery 08/07/23 Nimisha Nuñez PA-C [address] [place] [address] Physician Prior Authorization Nurse Orthopedic Surgery 02/05/24 documented as of this encounter
--- OUTSIDE RECORDS SUMMARY | 2025-02-24 14:18 | XMS_ITS | Clinical Summary ---
[facility] Address [address] [place] [address] Care Team Providers Care Flexo Folder Gluer Operator Name Role Phone Provider, No Known Primary [...] EDT - 12/11/2024 5:42 PM EDT Emergency [facility] EMERGENCY DEPARTMENT [address] [place] [address] Abhilash Gonzalez, DO Atypical chest pain (Primary [...] Troponin T 1Hr (12/11/2024 3:23 PM EDT) [facility] HS Troponin T 7 <14 ng/L 12/11/2024 3:48 PM EDT [facility] Troponin T Numeric Delta -2 Abnormal if >/=3 ng/L 12/11/2024 3:48 PM EDT [facility] Blood Line / Unknown 12/11/2024 3: 23 PM EDT 12/11/2024 3:26 PM EDT Narrative [facility] - 12/11/2024 3:48 PM EDT [...] Gonzalez DO LAB BLOOD ORDERABLES Final Result [facility]
[address] [place] [address], * ECG 12 Lead Chest Pain (12/11/2024 3:20 PM EDT) Only the most recent of2 resultswithin the time period is included. Pathologist [facility] QT Interval 428 ms ECG QTC Interval 437 ms ECG 12/11/2024 3:20 PM EDT 12/20/2024 6:01 PM EDT [facility] ECG - 12/20/2024 6:01 PM EDT [...] change was found Confirmed by Abhilash Gonzalez ([id number]) on 12/20/2024 6:01:12 PM Referred By: Confirmed [...] change was found Confirmed by Abhilash Gonzalez ([id number]) on 12/20/2024 6:01:12 PM Referred By: Confirmed [...] DO 12/11/2024 3:27 PM EDT Workstation ID: [id number] Narrative 12/11/2024 3:[address] ANGIOGRAM [...] DO 12/11/2024 3:27 PM EDT Workstation ID: [id number] Esteban Pantoja PA-C IMG CT ORDERABLES Final Resu lt * XR Chest 1 View (12/11/2024 2:38 PM EDT) Anatomical Region Laterality Modality Body N/A Radiographic Loretta ging 12/11/2024 3:17 PM EDT Impressions 12/11/2024 3:17 PM EDT Impression: No active disease. Electronically Signed: Seth Spivey MD 12/11/2024 3:17 PM EDT Workstation ID: [id number] Narrative 12/11/2024 3:17 PM EDT XR CHEST [...] MD 12/11/2024 3:17 PM EDT Workstation ID: [id number] Abhilash Gonzalez DO IMG DIAGNOSTIC IMAGING ORDE RABLES Final Result * Veras Top (12/11/2024 2:15 PM EDT) Extra Tube Hold for add-ons. 12/11/2024 2:31 PM EDT [facility] Comment:Auto resulted. Blood Venipuncture / Unknown 12/11/2024 2:15 PM EDT 12/11/2024 2:18 PM EDT Abhilash Stewardjordan DO LAB BLOOD ORDER ONLY Final Result [facility]
[address] [facility] [address] [place] [address], [place] * Gold Top - SST (12/11/2024 2:15 PM EDT) Extra Tube Hold for add-ons. 12/11/2024 2:31 PM EDT [facility] Comment:Auto resulted. Blood Venipuncture / Unknown 12/11/2024 2:15 PM EDT 12/11/2024 2:18 PM EDT Abhilash Stewardjordan DO LAB BLOOD ORDER ONLY Final Result Performing Organization Address City/[facility]/ZIP Co de Phone Number [facility]
[address] [place] [address], [place] * Green Top (Gel) (12/11/2024 2:15 PM EDT) Extra Tube Hold for add-ons. 12/11/2024 2:31 PM EDT [facility] Comment:Auto resulted. Blood Venipuncture / Unknown 12/11/2024 2:15 PM EDT 12/11/2024 2:18 PM EDT Abhilash Stewardseemablossom DO LAB BLOOD ORDER ONLY Final Result [facility]
[address] [facility] [address] [place] [address], [place] * (ABNORMAL) CBC Auto Differential (12/11/2024 2:15 PM EDT) WBC 6.22 3.40 - 10.80 10*3/mm3 12/11/2024 2:21 PM EDT [facility] RBC 4.80 3.77 - 5.28 10*6/mm3 12/11/2024 2:[facility] Hemoglobin 13.4 12.0 - 15.9 g/dL 12/11/2024 2:21 PM [facility] Hematocrit 39.7 34.0 - 46.6 % 12/11/2024 2:21 PM [facility] MCV 82.7 79.0 - 97.0 fL 12/11/2024 2:21 PM [facility] MCH 27.9 26.6 - 33.0 pg 12/11/2024 2:21 PM [facility] MCHC 33.8 31.5 - 35.7 g/dL 12/11/2024 2:21 PM [facility] RDW 12.5 12.3 - 15.4 % 12/11/2024 2:21 PM [facility] RDW-SD 38.1 37.0 - 54.0 fl 12/11/2024 2:21 PM [facility] MPV 9.8 6.0 - 12.0 fL 12/11/2024 2:21 PM [facility] Platelets 206 140 - 450 10*3/mm3 12/11/2024 2:21 PM [facility] Neutrophil % 66.8 42.7 - 76.0 % 12/11/2024 2:21 PM [facility] Lymphocyte % 24.8 19.6 - 45.3 % 12/11/2024 2:21 PM [facility] Monocyte % 4.7(L) 5.0 - 12.0 % 12/11/2024 2:21 PM [facility] Eosinophil % 2.9 0.3 - 6.2 % 12/11/2024 2:21 PM [facility] Basophil % 0.6 0.0 - 1.5 % 12/11/2024 2:21 PM [facility] Immature Grans % 0.2 0.0 - 0.5 % 12/11/2024 2:21 PM [facility] Neutrophils, Absolute 4.16 1.70 - 7.00 10*3/mm3 12/11/2024 2:21 PM EDT [facility] Lymphocytes, Absolute 1.54 0.70 - 3.10 10*3/mm3 12/11/2024 2:21 PM EDT [facility] Monocytes, Absolute 0.29 0.10 - 0.90 10*3/mm3 12/11/2024 2:21 PM EDT [facility] Eosinophils, Absolute 0.18 0.00 - 0.40 10*3/mm3 12/11/2024 2:21 PM EDT [facility] Basophils, Absolute 0.04 0.00 - 0.20 10*3/mm3 12/11/2024 2:21 PM EDT [facility] Immature Grans, Absolute 0.01 0.00 - 0.05 10*3/mm3 12/11/2024 2:21 PM EDT [facility] Blood Venipuncture / Unknown 12/11/2024 2:15 PM EDT 12/11/2024 2:18 PM EDT Abhilash Gonzalez DO LAB BLOOD ORDERABLES Final Result [facility]
[address] [place] [address], [place] * Lavender Top (12/11/2024 2:15 PM EDT) Extra Tube hold for add-on 12/11/2024 2:31 PM EDT [facility] Comment:Auto resulted Blood Venipuncture / Unknown 12/11/2024 2:15 PM EDT 12/11/2024 2:18 PM EDT Abhilash Gonzalez DO LAB BLOOD ORDER ONLY Final Result [facility]
[address] [facility] [place] [address], [place] * Light Blue Top (12/11/2024 2:15 PM EDT) Extra Tube Hold for add-ons. 12/11/2024 2:31 PM EDT [facility] Comment:Auto resulted Blood Venipuncture / Unknown 12/11/2024 2:15 PM EDT 12/11/2024 2:18 PM EDT Abhilash Gonzalez DO LAB BLOOD ORDER ONLY Final Result [facility]
[address] [place] [address], * High Sensitivity Troponin T (12/11/2024 2:15 PM EDT) [facility] HS Troponin T 9 <14 ng/L 12/11/2024 2:35 PM EDT [facility] Blood Venipuncture / Unknown 12/11/2024 2:15 PM EDT 12/11/2024 2:18 PM EDT Abhilash Gonzalez DO LAB BLOOD ORDERABLES Final Result [facility]
[address] [place] [address], * BNP (12/11/2024 2:15 PM EDT) Pathologist [facility] proBNP 136.0 0.0 - 900.0 pg/mL 12/11/2024 2:36 PM EDT [facility] Blood Venipuncture / Unknown 12/11/2024 2:15 PM EDT 12/11/2024 2:18 PM EDT Narrative [facility] - 12/11/2024 2:36 PM EDT [...] BLOOD ORDERABLES Final Result Performing Organization Address City/[facility]/ZIP Co de Phone Number [facility]
[address] [place] [address], * Lipase (12/11/2024 2:15 PM EDT) Pathologist [facility] Lipase 33 13 - 60 U/L 12/11/2024 2:38 PM EDT [facility] Blood Venipuncture / Unknown 12/11/2024 2:15 PM EDT 12/11/2024 2:18 PM EDT Abhilash Gonzalez LAB BLOOD ORDERABLES Final Result Performing Organization Address [facility]/ZIP Co de Phone Number [facility]
[address] [place] [address], * (ABNORMAL) Comprehensive Metabolic Panel (12/11/2024 2:15 PM EDT) Glucose 104(H) 65 - 99 mg/dL 12/11/2024 2:39 PM EDT [facility] BUN 25.6(H) 8.0 - 23.0 mg/dL 12/11/2024 2:39 PM EDT [facility] Creatinine 1.21(H) 0.57 - 1.00 mg/dL 12/11/2024 2:39 PM EDT [facility] Sodium 143 136 - 145 mmol/L 12/11/2024 2:39 PM EDT [facility] Potassium 3.8 3.5 - 5.2 mmol/L 12/11/2024 2:39 PM EDT [facility] Chloride 105 98 - 107 mmol/L 12/11/2024 2:39 PM EDT [facility] CO2 19.9(L) 22.0 - 29.0 mmol/L 12/11/2024 2:39 PM EDT [facility] Calcium 10.6(H) 8.6 - 10.5 mg/dL 12/11/2024 2:39 PM T [facility] Total Protein 7.3 6.0 - 8.5 g/dL 12/11/2024 2:39 PM EDT [facility] Albumin 4.4 3.5 - 5.2 g/dL 12/11/2024 2:39 PM EDT [facility] ALT (SGPT) 27 1 - 33 U/L 12/11/2024 2:39 PM T [facility] AST (SGOT) 24 1 - 32 U/L 12/11/2024 2:39 PM T [facility] Alkaline Phosphatase 92 39 - 117 U/L 12/11/2024 2:39 PM [facility] Total Bilirubin 0.3 0.0 - 1.2 mg/dL 12/11/2024 2:39 [facility] Globulin 2.9 gm/dL 12/11/2024 2:39 PM [facility] A/G Ratio 1.5 g/dL 12/11/2024 2:39 PM [facility] BUN/Creatinine Ratio 21.2 7.0 - 25.0 12/11/2024 2:39 PM [facility] Anion Gap 18.1(H) 5.0 - 15.0 mmol/L 12/11/2024 2:39 PM [facility] eGFR 51.1(L) >60.0 mL/min/1.7 3 12/11/2024 2:39 PM [facility] Blood Venipuncture / Unknown 12/11/2024 2:15 PM EDT 12/11/2024 2:18 PM EDT [facility] - 12/11/2024 2:39 PM EDT [...] Gonzalez DO LAB BLOOD ORDERABLES Final Result [facility]
[address] [place] [address], from Last 3 Months Insurance Care Teams Flexo Folder Gluer Operator Relationship Specialty Start Date End Date [place], [place] [address] PCP - General 12/11/24
--- OUTSIDE RECORDS SUMMARY | 2025-02-24 14:18 | XMS_ITS | Clinical Summary ---
Author Organization [facility] Address [address] [place] [address] Phone Care Team Providers Care Gaming Floor Supervisor Name Role Phone Lena Aguilera APRN Primary Care Physician [phone] Conditions or Problems Problem Name Problem Code [...] [BMI] 32.0-32.9, adult Urinary incontinenc e, mild 817531129 (SNOMED CT) 10/29 Active 10/29 Lena Aguilera APRN Urinary incontinence Body mass index (BMI) 32.0-32.9; adult Z68.32 (ICD-10-CM ) 10/29 Removed 10/29 Lena Joneswell DIGITAL MARKETING ANALYST Body mass index [BMI] 32.0-32.9, adult Body mass index (BMI) 33.0-33.9; adult Z68.33 (ICD-10-CM ) 07/31 Correction 07/31 Lena Joneswell DIGITAL MARKETING ANALYST Body mass index [BMI] 33.0-33.9, adult Sinusitis 33438144 (SNOMED CT) 10/29 Inactive 10/29 Lena Joneswell DIGITAL MARKETING ANALYST Sinusitis [facility] Lack of physical exercise Z72.3 [...] [BMI] 33.0-33.9, adult Followup of lab tests 998153770 (SNOMED CT) 07/31 Active 07/31 Lenajose JonesWillymike GAGNON Follow-up status Body mass index (BMI) 33.0-33.9; adult Z68.33 (ICD-10-CM ) 07/25 Removed 07/25 Lena Jonesmike GAGNON Body mass index [BMI] 33.0-33.9, adult Body mass index (BMI) 33.0-33.9; adult Z68.33 (ICD-10-CM ) Correction Lenajose JonesWillymike GAGNON Body mass index [BMI] 33.0-33.9, adult Prediabetes 199912215 (SNOMED CT) 2020 Active 07/25 Lena Aguilera APRN Prediabetes Joint pain 37112278 (SNOMED CT) 07/25 Active 07/25 Lena Aguilera DIGITAL MARKETING ANALYST Pain of joint Body mass index (BMI) 33.0-33.9; adult Z68.33 (ICD-10-CM ) Removed Bianka Vania DIGITAL MARKETING ANALYST Body mass index [BMI] 33.0-33.9, adult Influenza 3806207 (SNOMED CT) Active Bianka Vania DIGITAL MARKETING ANALYST Influenza Body mass index (BMI) 33.0-33.9; adult Z68.33 (ICD-10-CM ) 01/24 Correction 01/24 Bianka Vania DIGITAL MARKETING ANALYST Body mass index [BMI] 33.0-33.9, adult Body aches 15605527 (SNOMED CT) Active Binaka Vania DIGITAL MARKETING ANALYST Generalized aches and pains Body mass index (BMI) 33.0-33.9; adult Z68.33 (ICD-10-CM ) 01/24 Removed 01/24 Lena Aguilera DIGITAL MARKETING ANALYST Body mass index [BMI] 33.0-33.9, adult Body mass index (BMI) 34.0-34.9; adult Z68.34 (ICD-10-CM ) 07/10 Correction 07/10 Lena Aguilera DIGITAL MARKETING ANALYST Body mass index [BMI] 34.0-34.9, adult Body [...] index [BMI] 38.0-38.9, adult Colon cancer screening 322233609 (SNOMED CT) 10/27 Active 10/27 Gavin Plascencia MD Screening for malignant neoplasm of colon Mammographi c screening for breast cancer 64303286 (SNOMED CT) 10/27 Active 10/27 Gavin Plascencia MD Screening mammography Exposure to COVID-19 coronavirus 883332563 (SNOMED CT) 07/10 Active 07/10 Lena Aguilera [...] [BMI] 19.9 or less, adult Liver lesion 123810463 (SNOMED CT) 12/28 Active 12/28 Govind Dodson APRN Lesion of liver Abdominal pain, right upper quadrant 517938379 (SNOMED CT) 12/15 Active 12/15 Paola Fuller MA Right upper quadrant pain Diarrhea 39835712 (SNOMED CT) 12/15 Active 12/15 Paola Fuller MA Diarrhea Nausea and vomiting 20848920 (SNOMED CT) 12/15 Active 12/15 Paola Fuller MA Nausea and vomiting Body mass index (BMI) 19 or less; adult Z68.1 (ICD-10-CM ) 10/21 Removed 10/21 Govind Dodson DIGITAL MARKETING ANALYST Body mass index [BMI] 19.9 or less, adult Body mass index (BMI) 39.0-39.9; adult Z68.39 (ICD-10-CM ) 09/08 Correction 09/08 Govind Dodson DIGITAL MARKETING ANALYST Body mass index [BMI] 39.0-39.9, adult Vaginal lesion 737220222 (SNOMED CT) 10/21 Active 10/21 Govind Dodson DIGITAL MARKETING ANALYST Vaginal lesion Nausea and vomiting 83529181 (SNOMED CT) 10/21 Active 10/21 Govind Dodson DIGITAL MARKETING ANALYST Nausea and vomiting Cough 22542093 (SNOMED CT) 10/21 Active 10/21 Govind Dodson DIGITAL MARKETING ANALYST Cough Body mass index (BMI) 39.0-39.9; adult Z68.39 (ICD-10-CM ) 09/08 Removed 09/08 Govind Dodson DIGITAL MARKETING ANALYST Body mass index [BMI] 39.0-39.9, adult Body mass index (BMI) 40.0-44.9; adult Z68.41 (ICD-10-CM ) 02/25 Correction 02/25 Govind Dodson DIGITAL MARKETING ANALYST Body mass index [BMI] 40.0-44.9, adult Vitamin D deficiency 77602227 (SNOMED CT) 09/08 Active 09/08 Govind Dodson DIGITAL MARKETING ANALYST Vitamin D deficiency Gout 53681981 (SNOMED CT) 09/08 Active 09/08 Govind Dodson DIGITAL MARKETING ANALYST Gout Body mass index (BMI) 40.0-44.9; adult Z68.41 (ICD-10-CM ) 02/25 Removed 02/25 Govind Dodson APRN Body mass index [BMI] 40.0-44.9, adult Shoulder joint pain, right 585633742 (SNOMED CT) 02/25 Active 02/25 Govind Dodson DIGITAL MARKETING ANALYST Shoulder joint pain Counseling for nutrition Z71.3 (ICD-10-CM ) 02/25 Inactive 02/25 Govind Dodson APRN Dietary counseling and surveillance Body mass index (BMI) 39.0-39.9; adult Z68.39 (ICD-10-CM ) 11/12 Correction 11/12 Govind Dodson DIGITAL MARKETING ANALYST Body mass index [BMI] 39.0-39.9, adult Prediabetes 618894022 (SNOMED CT) 02/25 Active 02/25 Govind Dodson DIGITAL MARKETING ANALYST Prediabetes Body mass index (BMI) 39.0-39.9; adult Z68.39 (ICD-10-CM ) 11/12 Removed 11/12 Govind Dodson DIGITAL MARKETING ANALYST Body mass index [BMI] 39.0-39.9, adult Counseling for nutrition Z71.3 (ICD-10-CM ) 11/12 Inactive 11/12 Govind Dodson DIGITAL MARKETING ANALYST Dietary counseling and surveillance Body mass index (BMI) 39.0-39.9; adult Z68.39 (ICD-10-CM ) 08/21 Correction 08/21 Govind Dodson APRN Body mass index [BMI] 39.0-39.9, adult Enlarged lymph nodes 40246558 (SNOMED CT) 11/12 Active 11/12 Govind Dodson DIGITAL MARKETING ANALYST Lymphadenopath y Elevated liver enzymes 193359801 (SNOMED CT) 08/25 Active 08/25 Govind Dodson DIGITAL MARKETING ANALYST Liver enzymes outside reference range Hyperlipide dillon 04019225 (SNOMED CT) 08/25 Active 08/25 Govind Dodson DIGITAL MARKETING ANALYST Hyperlipidemia Hyperglycem ia 65455922 (SNOMED CT) 08/25 Active 08/25 Govind Dodson DIGITAL MARKETING ANALYST Hyperglycemia Body mass index (BMI) 39.0-39.9; adult Z68.39 (ICD-10-CM ) 08/21 Removed 08/21 Govind Dodson APRN Body mass index [BMI] 39.0-39.9, adult Breast exam 93851677 (SNOMED CT) 08/21 Active 08/21 Govind Dodson DIGITAL MARKETING ANALYST Examination of breast Foot joint pain, left 448203957 (SNOMED CT) 08/21 Active 08/21 Govind Dodson DIGITAL MARKETING ANALYST Pain of joint of foot Knee joint pain, right 38050587 (SNOMED CT) 08/21 Active 08/21 Govind Dodson DIGITAL MARKETING ANALYST Knee pain Dysuria 07090895 (SNOMED CT) 08/21 Active 08/21 Govind Dodson DIGITAL MARKETING ANALYST Dysuria Vaginal discharge 455945600 (SNOMED CT) 08/21 Active 08/21 Govind Dodson DIGITAL MARKETING ANALYST Vaginal discharge Establish care or get acquainted visit 969635429 (SNOMED CT) 08/21 Active 08/21 Govind Dodson APRN Procedure carried out on subject Hypothyroid 22630736 (SNOMED CT) 08/21 Active 08/21 Govind Dodson DIGITAL MARKETING ANALYST Hypothyroidism Hypertensio n, benign 14630423 (SNOMED CT) 08/21 Active 08/21 Govind Dodson DIGITAL MARKETING ANALYST Benign hypertension Hx of hysterectom y, total 938506903 (OMED CT) 08/21 Active 08/21 Govind Dodson DIGITAL MARKETING ANALYST Total hysterectomy Medications Medication Instructions Start Date Stop Date Generic Name ND Provider Diflucan 150 mg tablet Take 1 tablet by mouth single dose May repeat in 7 days 11/05 Diflucan 150 mg tablet Lena Willy DIGITAL MARKETING ANALYST NATURAL VITAMIN D-3 125 MCG (5000 UT) TABS Take 1 tablet by mouth once a day 11/05 cholecalciferol (vitamin d3) 72438102823 Lena Willymike JENKINSN AMOXICILLIN 500 MG CAPS Take 1 capsule by mouth twice a day for 10 days 10/29 amoxicillin 90303563673 Lena Willy DIGITAL MARKETING ANALYST GOODSENSE ASPIRIN 81 MG CHEW 08/07 aspirin 83848341677 Lena Willy DIGITAL MARKETING ANALYST FISH OIL 1000 MG CAPS Take 1 capsule by mouth twice a day 07/25 omega 0-qga-kpo-fish oil 78551526238 Lena Aguilera APRN GOODSENSE ASPIRIN 81 MG CHEW Take 1 tablet by mouth once a day 08/07 aspirin 83857942304 Lena Aguilera APRN LISINOPRIL-HYDROCHLO ROTHIAZIDE 20-12.5 MG TABS Take 1 tablet by mouth once a day 07/10 lisinopril-hydroch lorothiazide 46976679110 Lena Aguilera APRN FISH OIL 1000 MG CAPS Take 1 capsule by mouth twice a day 07/25 omega 6-hyq-qun-fish oil 84808111704 Lena Aguilera APRN LEVOTHYROXINE SODIUM 75 MCG TABS Take 1 tablet by mouth once a day 08/21 levothyroxine 53762949276 Lena Aguilera APRN LISINOPRIL-HYDROCHLO ROTHIAZIDE 20-12.5 MG TABS Take 1 tablet by mouth once a day 07/10 lisinopril-hydroch lorothiazide 36978951716 Marine Lawrence APRN LEVOTHYROXINE SODIUM 75 MCG TABS Take 1 tablet by mouth once a day 08/21 levothyroxine 35602344718 Marine Lawernce APRN FISH OIL 1000 MG CAPS Take 1 capsule by mouth twice a day 07/25 omega 1-wqu-dot-fish oil 05216904011 Lena Aguilera APRN TAMIFLU 75 MG CAPS Take 1 capsule by mouth twice a day FOR FIVE DAYS 07/25 oseltamivir 64772995113 Lena Aguilera APRN PREDNISONE 20 MG TABS Take 1 tablet by mouth twice a day for 5 days 07/25 prednisone 68076399433 Lena Aguilera APRN PRAVASTATIN SODIUM 20 MG TABS Take 1 tablet by mouth once a day 01/24 pravastatin 89656673860 Lena Aguilera APRN TAMIFLU 75 MG CAPS Take 1 capsule by mouth twice a day FOR FIVE DAYS oseltamivir 85789400734 Lena Aguilera APRN PREDNISONE 20 MG TABS Take 1 tablet by mouth twice a day for 5 days prednisone 08080893699 Lena Aguilera APRN PRAVASTATIN SODIUM 20 MG TABS Take 1 tablet by mouth once a day 01/24 pravastatin 62975299546 Lena Aguilera APRN PRAVASTATIN SODIUM 20 MG TABS Take 1 tablet by mouth once a day 01/24 pravastatin 92093247366 Rebecca Abhinav DIGITAL MARKETING ANALYST TAMIFLU 75 MG CAPS Take 1 capsule by mouth twice a day FOR FIVE DAYS oseltamivir 68632831186 Bianka Vania DIGITAL MARKETING ANALYST PREDNISONE 20 MG TABS Take 1 tablet by mouth twice a day for 5 days prednisone 08904901245 Bianka Vania KALIN GOODSENSE ASPIRIN 81 MG CHEW aspirin 63366617219 Lena Aguilera APRN METFORMIN HCL 500 MG TABS Take increase to 2 tablets in AM and 1 tablet in PM metformin 30381353912 Lena Aguilera APRN ALLOPURINOL 100 MG TABS TAKE 1 TABLET BY MOUTH ONCE DAILY 01/07 allopurinol 15371287980 Lena Aguilera APRN LEVOTHYROXINE SODIUM 75 MCG TABS Take 1 tablet by mouth once a day 08/21 levothyroxine 60825672080 Lena Aguilera APRN LISINOPRIL-HYDROCHLO ROTHIAZIDE 20-12.5 MG TABS Take 1 tablet by mouth once a day 07/10 lisinopril-hydroch lorothiazide 31983342963 Lena Aguilera APRN PRAVASTATIN SODIUM 20 MG TABS Take 1 tablet by mouth once a day 01/24 pravastatin 49582707508 Lena Aguilera APRN METFORMIN HCL 500 MG TABS Take increase to 2 tablets in AM and 1 tablet in PM metformin 87201508858 Gavin Plascencia MD PRAVASTATIN SODIUM 10 MG TABS Take 1 tablet by mouth every night 09/09 pravastatin 02656078939 Gavin Plascencia MD METHOCARBAMOL 750 MG TABS TAKE 1 TABLET BY MOUTH THREE TIMES DAILY as needed for muscle spasms. 07/10 methocarbamol 49614805289 Gavin Plascencia MD LEVOTHYROXINE SODIUM 75 MCG TABS Take 1 tablet by mouth once a day 08/21 levothyroxine 94477462210 Gavin Plascencia MD NAPROXEN 500 MG TABS Take 1 tablet by mouth twice a day as needed 08/21 naproxen 94234202043 Gavin Plascencia MD LISINOPRIL-HYDROCHLO ROTHIAZIDE 20-25 MG TABS Take 1 tablet by mouth once a day 07/10 lisinopril-hydroch lorothiazide 88415356103 Gavin Plascencia MD LISINOPRIL-HYDROCHLO ROTHIAZIDE 20-12.5 MG TABS Take 1 tablet by mouth once a day 07/10 lisinopril-hydroch lorothiazide 29323115232 Gavin Plascencia MD CYCLOBENZAPRINE HCL 10 MG TABS Take 1 tablet by mouth at bedtime 07/10 cyclobenzaprine 69497056010 Gavin Plascencia MD METFORMIN HCL 500 MG TABS Take increase to 2 tablets in AM and 1 tablet in PM metformin 75316162556 Holly Nolan APRN PRAVASTATIN SODIUM 10 MG TABS Take 1 tablet by mouth every night 09/09 pravastatin 63344991592 Holly Nolan APRN LISINOPRIL-HYDROCHLO ROTHIAZIDE 20-25 MG TABS Take 1 tablet by mouth once a day lisinopril-hydroch lorothiazide 96990400432 Holly Nolan APRN LEVOTHYROXINE SODIUM 75 MCG TABS Take 1 tablet by mouth once a day 08/21 levothyroxine 78639438858 Holly Blanchejulienne DIGITAL MARKETING ANALYST METHOCARBAMOL 750 MG TABS TAKE 1 TABLET BY MOUTH THREE TIMES DAILY as needed for muscle spasms. methocarbamol 31335061587 Holly Nolan APRN LEVOTHYROXINE SODIUM 75 MCG TABS Take 1 tablet by mouth once a day 08/21 levothyroxine 55770108666 Govind Dodson APRN PRAVASTATIN SODIUM 10 MG TABS Take 1 tablet by mouth every night 09/09 pravastatin 49717285273 Govind Dodson APRN METFORMIN HCL 500 MG TABS Take increase to 2 tablets in AM and 1 tablet in PM metformin 95262045470 Govind Dodson APRN METHOCARBAMOL 750 MG TABS TAKE 1 TABLET BY MOUTH THREE TIMES DAILY as needed for muscle spasms. methocarbamol 39986574208 Govind West JENKINSN HYDROCHLOROTHIAZIDE 25 MG TABS Take 1 tablet by mouth once a day TAKE ONE TABLET BY MOUTH DAILY 03/17 hydrochlorothiazid e 72432607772 Govind West GAGNON VITAMIN D3 1.25 MG (34059 UT) CAPS Take 1 capsule by mouth once a week 09/08 cholecalciferol (vitamin d3) 29775212859 Govind Dodson APRN LISINOPRIL-HYDROCHLO ROTHIAZIDE 20-25 MG TABS Take 1 tablet by mouth once a day lisinopril-hydroch lorothiazide 13778914370 Govind Dodson APRN METFORMIN HCL 500 MG TABS Take increase to 2 tablets in AM and 1 tablet in PM metformin 21277428175 Gavin Plascencia MD ALLOPURINOL 100 MG TABS TAKE 1 TABLET BY MOUTH ONCE DAILY 01/07 allopurinol 11315273329 Gavin Plascencia MD LEVOTHYROXINE SODIUM 75 MCG TABS Take 1 tablet by mouth once a day 08/21 levothyroxine 01308174169 Gavin Plascencia MD VITAMIN D3 1.25 MG (52700 UT) CAPS Take 1 capsule by mouth once a week 09/08 cholecalciferol (vitamin d3) 95835018818 Gavin Plascencia MD HYDROCHLOROTHIAZIDE 25 MG TABS Take 1 tablet by mouth once a day TAKE ONE TABLET BY MOUTH DAILY 03/17 hydrochlorothiazid e 76958225214 Gavin Plascencia MD PRAVASTATIN SODIUM 10 MG TABS Take 1 tablet by mouth every night 09/09 pravastatin 38519369675 Gavin Plascencia MD METFORMIN HCL 500 MG TABS Take 1 tablet by mouth twice a day increase to 2 tablets in AM and 1 tablet in PM 04/07 metformin 28025450954 Govind Dodson APRN METFORMIN HCL 500 MG TABS Take increase to 2 tablets in AM and 1 tablet in PM metformin 64517530331 Govind Dodson APRN LEVOTHYROXINE SODIUM 75 MCG TABS Take 1 tablet by mouth once a day 08/21 levothyroxine 36823972152 Govind Dodson APRN METFORMIN HCL 500 MG TABS Take 1 tablet by mouth twice a day 09/09 metformin 34786265023 Govind Dodson APRN HYDROCHLOROTHIAZIDE 25 MG TABS Take 1 tablet by mouth once a day TAKE ONE TABLET BY MOUTH DAILY 03/17 hydrochlorothiazid e 17953819684 Govind Dodson APRN METFORMIN HCL 500 MG TABS Take 1 tablet by mouth twice a day increase to 2 tablets in AM and 1 tablet in PM metformin 27859589610 Govind Dodson APRN LEVOTHYROXINE SODIUM 75 MCG TABS Take 1 tablet by mouth once a day 08/21 levothyroxine 53636460897 Joana Boudreaux APRN HYDROCHLOROTHIAZIDE 25 MG TABS Take 1 tablet by mouth once a day 08/21 hydrochlorothiazid e 62849754930 Paola Fuller MA HYDROCHLOROTHIAZIDE 25 MG TABS Take 1 tablet by mouth once a day TAKE ONE TABLET BY MOUTH DAILY 03/17 hydrochlorothiazid e 08587401608 Joana Boudreaux APRN ALLOPURINOL 100 MG TABS Take 1 tablet by mouth once a day 09/08 allopurinol 40766397420 Govind Dodson APRN ALLOPURINOL 100 MG TABS TAKE 1 TABLET BY MOUTH ONCE DAILY 01/07 allopurinol 26152185320 Govind Dodson APRN NAPROXEN 500 MG TABS Take 1 tablet by mouth twice a day as needed 08/21 naproxen 70459025616 Govind Dodson APRN VITAMIN D3 1.25 MG (55507 UT) CAPS Take 1 capsule by mouth once a week 09/08 cholecalciferol (vitamin d3) 55487224115 Govind Dodson APRN ALLOPURINOL 100 MG TABS Take 1 tablet by mouth once a day 09/08 allopurinol 60899521195 Govind Dodson APRN IMODIUM A-D 2 MG TABS TAKE 2 TABLETS BY MOUTH ONCE THEN TAKE 1 TABLET AFTER EACH LOOSE BOWEL MOVEMENT. MAX 4 TABLETS IN 24 HOURS 10/21 LOPERAMIDE HCL Govind Dodson KALIN LEVOTHYROXINE SODIUM 75 MCG TABS Take 1 tablet by mouth once a day 08/21 levothyroxine 48592879079 Govind Dodson APRN METFORMIN HCL 500 MG TABS Take 1 tablet by mouth twice a day 09/09 metformin 36459915763 Govind Dodson APRN PRAVASTATIN SODIUM 10 MG TABS Take 1 tablet by mouth every night 09/09 pravastatin 29510565257 Govindravi Dodson KALIN HYDROCHLOROTHIAZIDE 25 MG TABS Take 1 tablet by mouth once a day 08/21 hydrochlorothiazid e 32630349188 Paola Alina MA IMODIUM A-D 2 MG [...] as needed for nausea/vomiti ng 12/15 ondansetron 74334876926 Govindravi Dodson KALIN VALTREX 1 GM TABS TAKE 1 TABLET BY MOUTH 2 TIMES A DAY 10/21 VALACYCLOVIR HCL 48104550878 Govind Dodson KALIN IMODIUM A-D 2 MG TABS TAKE 2 TABLETS BY MOUTH ONCE THEN TAKE 1 TABLET AFTER EACH LOOSE BOWEL MOVEMENT. MAX 4 TABLETS IN 24 HOURS 10/21 LOPERAMIDE HCL 97578416217 Govind Dodson APRN ONDANSETRON HCL 8 MG TABS TAKE 1 TABLET BY MOUTH EVERY 8 HOURS NEEDED FOR NAUSEA/VOMTIN G 10/21 ONDANSETRON HCL 86501564062 Govind Dodson APRN METFORMIN HCL 500 MG TABS TAKE 1 TABLET BY MOUTH 2 TIMES A DAY 09/09 METFORMIN HCL 60243334790 Govind Dodson DIGITAL MARKETING ANALYST PRAVASTATIN SODIUM 10 MG TABS TAKE 1 TABLET BY MOUTH AT BEDTIME FOR CHOLESTEROL 09/09 PRAVASTATIN SODIUM 22091611850 Govind Dodson APRN VITAMIN D3 1.25 MG (62003 UT) CAPS TAKE 1 CAPSULE BY MOUTH ONCE PER WEEK 09/08 CHOLECALCIFEROL 97279972248 Govind Dodson APRN ALLOPURINOL 100 MG TABS TAKE 1 TABLET BY MOUTH ONCE A DAY 09/08 ALLOPURINOL 26638829917 Govind Dodson APRN PRAVASTATIN SODIUM 10 MG TABS TAKE 1 TABLET BY MOUTH AT BEDTIME FOR CHOLESTEROL 02/26 PRAVASTATIN SODIUM 76176665885 Govind Dodson APRN METFORMIN HCL 500 MG TABS TAKE 1 TABLET BY MOUTH 2 TIMES A DAY 02/26 METFORMIN HCL 16072973008 Govind Ddoson APRN METFORMIN HCL 500 MG TABS TAKE 1 TABLET BY MOUTH 2 TIMES A DAY 02/26 METFORMIN HCL 68412422994 Govind Dodson APRN PRAVASTATIN SODIUM 10 MG TABS TAKE 1 TABLET BY MOUTH AT BEDTIME FOR CHOLESTEROL 02/26 PRAVASTATIN SODIUM 87246017910 Govind Dodson APRN LEVOTHYROXINE SODIUM 75 MCG TABS TAKE 1 TABLET BY MOUTH ONCE A DAY 08/21 LEVOTHYROXINE SODIUM 05352835618 Govind Dodson APRN NAPROXEN 500 MG TABS TAKE 1 TABLET BY MOUTH 2 TIMES A DAY NEEDED 08/21 NAPROXEN 52976161022 Govind Dodson APRN HYDROCHLOROTHIAZIDE 25 MG TABS TAKE ONE TABLET BY MOUTH ONCE DAILY 08/21 HYDROCHLOROTHIAZID E 32917257301 Govind Dodson APRN LEVOTHYROXINE SODIUM 50 MCG TABS TAKE ONE TABLET BY MOUTH ONCE DAILY 08/21 LEVOTHYROXINE SODIUM 38495206680 Govind Dodson APRN Medications Administered No information available. Allergies, Adverse Reactions, Alerts Allergy Name Reaction Description Start Date Severity Statu s Provider BACTRIM RASH Mild Active Govind hastings DIGITAL MARKETING ANALYST Results Date Name Value Unit Range Flag [...] Office Visit: INFLUENZA LABS ORDERED Strep Screen 64895 Laboratory tests ordered RAPID STREP negative Streptoc [...] in Blood ABS NEUTROPH 3450 CELLS/UL 10*3/uL 8723-8415 N Neutrophils [#/volume] in Blood MPV 10.7 [...] Appointment 08:30 AM Lena Aguilera APRN, [address] , [place], [address], Referral [facility], [address], [place], [address] Referral [facility], [address], [place], [place] Referral Orthopedic Refer ral General Pending [...] COV ID-19 Pending order Urine Dip Manual [id number] Pending order T1 CMP Pending order T1 Lipid Panel Pending order T1 TSH reflex to free T4 Pending order Urine Dip Manual [id number] Pending Order exclud ed from report: Pending [...] Procedures Code Procedure Name Date Entry Date [facility]-[id number] Medication Reconciliation CPT-3075F Most recent systolic blood pressure 130-139 mm Hg CPT-3078F Most recent diastoli c blood pressure <80 mm Hg CPT-1159F Medication list docu mented in medical record CPT-1160F Review of all medica tions by a prescribing practitioner [facility] 6399 T1 CBC with diff [facility] 66322 T1 CMP [facility] 62139 T1 Lipid Panel [facility] 29599 T1 TSH reflex to free T4 11/03/07 [facility] 496 T1 HGBA1c SCT-[id number] Medication Reconciliation CPT-3074F Most recent systolic blood pressure <130 mm Hg CPT-3078F Most recent diastoli c blood pressure <80 mm Hg CPT-1159F Medication list docu mented in medical record CPT-1160F Review of all medica tions by a prescribing practitioner [facility] 395 T1 Urine Culture CPT-1159F Medication list docu mented in medical record CPT-1160F Review of all medica tions by a prescribing practitioner SCT-[id number] Lifestyle education regarding diet 08/07 [facility] 76379 T1 CMP [facility] 6399 T1 CBC with diff [facility] 78209 T1 Lipid Panel [facility] 49907 T1 TSH reflex to free T4 10/30/06 [facility] 496 T1 HGBA1c SCT-[id number] Medication Reconciliation Mammo LUCIEN Mammogram CPT-1159F Medication list docu mented in medical record SCT-[id number] Medication Reconciliation [facility] 85976 T1 CMP [facility] 6399 T1 CBC with diff [facility] 10404 T1 Lipid Panel [facility] 496 T1 HGBA1c [facility] 76620 T1 TSH reflex to free T4 10/06/00 CPT-3074F Most recent systolic blood pressure <130 mm Hg CPT-3078F Most recent diastoli c blood pressure <80 mm Hg SCT-[id number] Medication Reconciliation CPT-3074F Most recent systolic blood pressure <130 mm Hg CPT-3078F Most recent diastoli c blood pressure <80 mm Hg CPT-1159F Medication list docu mented in medical record CPT-1160F Review of all medica tions by a prescribing practitioner US URQ LUCIEN Ultrasound RUQ SCT-[id number] Lifestyle education regarding diet 07/25 [facility] 90916 T1 CMP [facility] 6399 T1 CBC with diff [facility] 496 T1 HGBA1c [facility] 73918 T1 Lipid Panel [facility] 08529 T1 TSH reflex to free T4 202 09/29/24 [facility] 4418 T2 Rheumatoid Factor Quant 2 [facility] 249 T2 BEN [facility] 809 T1 Sedimentation Rate RBC 20 24/07/24 [facility] 07489 T1 Acute Hepatits Panel 2023 [facility] 67129 T2 Vitamin D 25 Hydroxy 2023 [facility] CPT-50820 Strep Screen 05881 7 CPT-3074F Most recent systolic blood pressure <130 mm Hg CPT-3079F Most recent diastoli c blood pressure 80-89 mm Hg CPT-1159F Medication list docu mented in medical record SCT-[id number] Medication Reconciliation SCT-[id number] Never smoker CPT-1159F Medication list docu mented in medical record CPT-1160F Review of all medica tions by a prescribing practitioner [facility] 03079 T1 CMP [facility] 6399 T1 CBC with diff [facility] 496 T1 HGBA1c [facility] 46296 T1 Lipid Panel [facility] 24249 T1 TSH reflex to free T4 09/04/26 [facility] 85571 T2 Vitamin D 25 Hydroxy 2022 Mammo LUCIEN Mammogram SCT-[id number] Medication Reconciliation CPT-3074F Most recent systolic blood pressure <130 mm Hg CPT-3079F Most recent diastoli c blood pressure 80-89 mm Hg SCT-[id number] Medication Reconciliation [facility] 6399 T1 CBC with diff [facility] 78447 T1 CMP [facility] 496 T1 HGBA1c [facility] 37078 T1 Lipid Panel [facility] 52883 T1 TSH reflex to free T4 202 [...] Medication list docu mented in medical record SCT-[id number] Medication Reconciliation SCT-[id number] Giving encouragement to exercise SCT-984441458 Dietary management education/guidance/counseling SCT-596937252 Lifestyle education regarding diet 04/26 SCT-[id number] Prescribed activity/exercise education [facility] 70361 T1 CMP [facility] 496 T1 HGBA1c [facility] 80269 T1 Lipid Panel [facility] 61750 T1 TSH reflex to free T4 08/10/26 [facility] 65656 T2 Vitamin D 25 Hydroxy 2021 SCT-[id number] Medication Reconciliation Q968T,[id number] Lipid Profile T25560F,H319128 SGPT (ALT) P97165F,[id number] SGOT (AST) [facility] 6399 T1 CBC with diff [facility] 14659 T1 CMP [facility] 496 T1 HGBA1c [facility] 89712 T1 Lipid Panel [facility] 14715 T1 TSH reflex to free T4 08/04/28 [facility] 905 T1 Uric Acid Mammo LUCIEN Mammogram CPT-3077F Most recent systolic blood pressure >=140 mm Hg CPT-3079F Most recent diastolic blood pressure 80-8 9 mm Hg CPT 93071 [place] [address] SCT-[id number] Medication Reconciliation [facility] 71283 Patient Pay- COVID-19 07/10 SCT-[id number] Medication Reconciliation CPT-3074F Most recent systolic blood pressure <130 mm Hg CPT-3078F Most recent diastoli c blood pressure <80 mm Hg CPT-1159F Medication list docu mented in medical record CPT-1160F Review of all medica tions by a prescribing practitioner [facility] 99521 T1 CMP [facility] 6399 T1 CBC with diff [facility] 496 T1 HGBA1c [facility] 74697 T1 TSH reflex to free T4 202 07/10/06 CT ABD & PELV W&WO CT Abdomen and Pelvis w & w-out con trast CPT-1159F Medication list docu mented in medical record [id number] Medication Reconciliation CPT-1160F Review of all medica tions by a prescribing practitioner [id number] Giving encouragement to exercise SCT-[id number] Dietary management education/guidance/counseling SCT-[id number] Lifestyle education regarding diet 12/15 SCT-[id number] Prescribed activity/exercise education [facility] 243 T1 Amylase [facility] 6399 T1 CBC with diff [facility] 13736 T1 CMP [facility] 606 T1 Lipase [facility] 22766 Patient Pay- COVID-19 0 12/15 [place] [facility] Ultrasound Gall Bladder 2020 [id number] Medication Reconciliation [facility] 82997 Patient Pay- COVID-19 10/21 [id number] Medication Reconciliation CPT-3075F Most recent systolic blood pressure 130-139 mm Hg CPT-3078F Most recent diastoli c blood pressure <80 mm Hg CPT-51362 Urine Dip Manual 27259 09/08 CPT-1159F Medication list docu mented in medical record CPT-1160F Review of all medica tions by a prescribing practitioner [id number] Giving encouragement to exercise SCT-[id number] Dietary management education/guidance/counseling SCT-[id number] Lifestyle education regarding diet 09/08 SCT-[id number] Prescribed activity/exercise education 2 [facility] 31603 T1 CMP [facility] 00434 T1 Lipid Panel [facility] 81966 T1 TSH reflex to free T4 202 07/03/10 [id number] Medication Reconciliation CPT-3074F Most recent systolic blood pressure <130 mm Hg CPT-3079F Most recent diastoli c blood pressure 80-89 mm Hg CPT-1159F Medication list docu mented in medical record CPT-1160F Review of all medica tions by a prescribing practitioner X-Ray Shoulder Right X-Ray Shoulder Right [facility] 37379 T1 CMP [facility] 496 T1 HGBA1c [facility] 37819 T1 TSH reflex to free T4 202 [facility] 22028 T1 Lipid Panel [id number] Medication Reconciliation SCT-[id number] Medication Reconciliation Other Other CPT-3075F Most recent systolic blood pressure 130-139 mm Hg CPT-3079F Most recent diastoli c blood pressure 80-89 mm Hg ORTHO GEN Orthopedic Referral General X-Ray Knee Right X-Ray Knee Right [facility] 496 T1 HGBA1c [facility] 71945 T1 Acute Hepatits Panel 2019 MRI KNEE WO [facility] MRI Knee w-o contrast 202 SCT-[id number] Medication Reconciliation [facility] 6399 T1 CBC with diff [facility] 26501 T1 CMP [facility] 56422 T1 Lipid Panel [facility] 86168 T1 TSH reflex to free T4 202 CPT-3074F Most recent systolic blood pressure <130 mm Hg CPT-3079F Most recent diastoli c blood pressure 80-89 mm Hg [facility] 04392 T2 BV Yeast Trich Culture (Affirm) 08/21 X-Ray Foot Left X-Ray Foot Left 1 SCT-[id number] Giving encouragement to exercise SCT-252659843 Dietary management education/guidance/counseling SCT-168589458 Lifestyle education regarding diet 08/21 SCT-355222562 Prescribed activity/exercise education 2 CPT-78889 Urine Dip Auto 39386 Mammo [facility] Mammogram Vital Signs Date Name [...]
--- OUTSIDE RECORDS SUMMARY | 2025-02-24 14:19 | XMS_ITS | Encounter Summary ---
Author Organization [employer] ([place], [place], [place], [place]) Address [address] [place] [address] Care Team Providers Care Assayer Name Role Phone Nick Rasmussen PA-C Unavailable [phone] Lena Aguilera APRN Primary Care Provider Nimisha Nuñez PA-C Unavailable [phone] Reason for Referral * Mammography (Routine) - New Request Specialty Diagnoses / Procedures Referred By Kia robins Referred To Contact Radiology Diagnoses Screening mammogram for breast cancer Procedures MM digital mammo screen with phyllis bilateral Lena Aguilera APRN [address] [place] [address] Phone: tel: fax: [facility] [address] [place] [address] Phone: tel: fax: Referral ID Status Reason Start Date Expiration Date V isits Requested Visits Authorized [id number] New Request 08/12/2024 08/12/2025 1 1 Encounter Details Date Type Department Care Team (Late st Contact Info) Description 08/12/2024 Outside Orders [facility] Central Scheduling [address] [place] [address] Lena Aguilera APRN [address] [place] [address] Screening mammogram for breast cancer [...] Description 05/20/2025 8:30 AM EST Office Visit [facility] Orthopedics - [address] [place] [address] Nick Rasmussen PA-C [address] [place] [address] 08/19/2025 9:30 AM EST Appointment [facility] [address] [place] [address] documented as of this encounter [...] the next mammogram. At our facility, a kaibab marker is positioned over a visible skin [...] cancer documented in this encounter Care Teams Assayer Relationship Specialty Start Date End Date Lena Aguilera APRN [address] [place] [address] PCP - General Family Medicine 10/28/23 Nick Rasmussen PA-C [address] [place] [address] Orthopedic Surgery 08/07/23 Nimisha Nuñez PA-C [address] [place] [address] Physician Insurance Claim Representative Orthopedic Surgery 02/05/24 documented as of this encounter
--- OUTSIDE RECORDS SUMMARY | 2025-02-24 14:19 | XMS_ITS | Clinical Summary ---
Author Organization [employer] ([place], [place], [place], [place]) Address [address] [place] [address] Care Team Providers Care Stone Cutter Name Role Phone Nick Rasmussen PA-C Unavailable [phone] Lena Aguilera APRN Primary Care Provider Nimisha Nuñez PA-C Unavailable [phone] Allergies Active Allergy Reactions Criticality Noted Date [...] mouth 2 (two) times daily. 07/25/2023 Active isosorbide dinitrate (ISORDIL) 20 MG tablet Take 1 tablet (20 mg total) by mouth 3 (three) times daily. Active Hospital, Clinic, or Other Facility Administered Medication Ordered Dose Route Frequency Start Date End Date Status lidocaine (XYLOCAINE) injection 1%Indications:Primary osteoarthritis of left knee 1 mL OTHER Once 10/25/2022 Active methylPREDNISolone acetate (DEPO-MEDROL) injection 80 mgIndications:Primary osteoarthritis of left knee 80 mg IAtc Once 10/25/2022 Active lidocaine (XYLOCAINE) injection 1%Indications:Primary osteoarthritis of left knee 1 mL IAtc Once 02/11/2025 02/12/20 Ended methylPREDNISolone acetate (DEPO-MEDROL) injection 80 mgIndications:Primary osteoarthritis of left knee 80 mg IAtc Once 02/11/2025 02/12/20 Ended methylPREDNISolone acetate (DEPO-MEDROL) injection 80 mgIndications:Primary osteoarthritis of right knee 80 mg IAtc Once 02/11/2025 02/11/2025 Ended lidocaine (XYLOCAINE) injection 1%Indications:Primary osteoarthritis of right knee 1 mL IAtc Once 02/11/2025 02/11/2025 Ended Active Problems Problem Noted Date Diagnosed Date [...] Encounters Date Type Department Care Team Description 02/11/2025 10:00 AM EDT Office Visit [facility] Orthopedics - [address] [place] [address] Nick Rasmussen PA-C Primary osteoarthritis of left knee (Primary Dx); Primary osteoarthritis of right knee 12/23/2024 2:15 PM EDT Office Visit [facility] Orthopedics - [address] [place] [address] Nick Rasmussen PA-C Left carpal tunnel syndrome (Primary Dx) 12/18/2024 9:00 AM EDT Procedure Visit [facility] Neurology [facility] [address] [place] [address] Nick Rasmussen PA-C Everman, Nicole A, MD Numbness and tingling of both upper extremities 12/18/2024 Orders Only [facility] [address] [place] [address] Provider, MD Beena 12/18/2024 Travel 12/05/2024 10:57 AM EDT - 12/05/2024 2:53 PM EDT Emergency [facility] Emergency Department [address] [place] [address] Mayank Patrick MD Acute cystitis with hematuria (Primary Dx); Chest pain, unspecified type Discharge Disposition: Home or Self Care 12/05/2024 Travel from Last 3 Months Family History Medical [...] Date Vijay rded Speak language other than Swedish at home Not on file 07/19/2023 Want [...] Pulse 59 02/11/2025 9:16 AM EDT Temperature 36.8 C (98.3 F) 12/05/2024 11:06 AM EDT Respiratory Rate 18 02/11/2025 9:16 AM EDT Oxygen Saturation 97% 12/05/2024 11:06 AM EDT Inhaled Oxygen Concentration - - Weight 93 kg (205 lb) 02/11/2025 9:16 AM EDT Height 160 cm (5' 3 ) 02/11/2025 9:16 AM EDT Body Mass Index 36.31 02/11/2025 9:16 AM EDT Plan of Treatment Upcoming Encounters Date Type Department Care Team (Late st Contact Info) Description 05/20/2025 8:30 AM EST Office Visit [facility] Orthopedics - [address] [place] [address] Nick Rasmussen PA-C [address] [place] [address] 08/19/2025 9:30 AM EST Appointment [facility] [address] [facility] [address] [place] [address] Health Maintenance Due Date Last [...] 2025 Tobacco Cessation Counseling and Screening (12+) 02/11/2026 02/11/2025 Breast Cancer Screening 09/10/2026 09/10/2024, 08/13 Colonoscopy [...] FS_MODEL_IP_ECG 12-LEAD STAT 12/05/2024 11:03 AM EDT MM DIGITAL MAMMO DIAGNOSTIC WITH JJ LEFT Routine 09/10/2024 11:18 AM EDT Abnormal mammogram from Last 3 Months or Most Recently Relevant to Health Maintenance Results * EMG W/ NCS (12/18/2024 1:44 PM EDT) Anatomical Region Laterality Modality Other us Historical Provider MD NEUROLOGY ORDERABLES (MCT ) Final Result * High Sensitivity Troponin I (12/05/2024 1:20 PM EDT) Only the most recent of2 resultswithin the time period is included. Troponin I High Sensitivity (pg/mL) 5.9 3 - 58.8 pg/mL 12/05/2024 1:45 PM EDT [facility] Comment: Troponin Result (pg/mL) *Interpretation 3-58.8 [...] NP LAB BLOOD ORDERABLES Final Res ult [facility] [address] [phone] * (ABNORMAL) Urinalysis, Reflex Microscopic and Culture If Indicated (12/05/2024 12:45 PM EDT) Color, UA Yellow 12/05/2024 2:20 PM EDT [facility] Clarity, UA Turbid(A) Clear 12/05/2024 2:20 PM EDT [facility] Specific [place], UA 1.024 1.005 - 1.030 12/05/2024 2:20 PM EDT [facility] pH, UA 7.0 6.0 - 8.0 12/05/2024 2:20 PM EDT [facility] Leukocytes, UA 500 Evangelist/uL(A) Negative 12/05/2024 2:20 PM EDT [facility] Nitrite, UA Negative Negative 12/05/2024 2:20 PM EDT [facility] Protein, UA Trace(A) Negative 12/05/2024 2:20 PM EDT [facility] Glucose, UA Normal Normal 12/05/2024 2:20 PM EDT [facility] Ketones, UA Negative Negative 12/05/2024 2:20 PM EDT [facility] Bilirubin, UA Negative Negative 12/05/2024 2:20 PM EDT [facility] Blood, UA Negative Negative 12/05/2024 2:20 PM EDT [facility] Urobilinogen, UA Normal Normal 12/05/2024 2:20 PM EDT [facility] Specimen Source Urine, Clean Catch 12/05/2024 2:20 PM EDT [facility] Urine URINE SPECIMEN COLLECTION, CLEAN CATCH / Unknown 12/05/2024 12:45 PM EDT 12/05/2024 2:07 PM EDT Yamel Hurt NP URINE ORDERABLES Final Result [facility] [address] [place] [address] * (ABNORMAL) Urinalysis Microscopic Only (12/05/2024 12:45 PM EDT) WBC, UA 51-100(A) None Seen /HPF 12/05/2024 2:20 PM EDT [facility] RBC, UA 6-10(A) None Seen /HPF 12/05/2024 2:20 PM EDT [facility] Bacteria, UA 2+(A) Trace, None Seen 12/05/2024 2:20 PM EDT [facility] Mucus 1+(A) None Seen 12/05/2024 2:20 PM EDT [facility] SQUAMOUS EPITHELIAL 3-5(A) None Seen /HPF 12/05/2024 2:20 PM EDT [facility] TRANSITIONAL EPITHELIAL CELLS 0-2(A) None Seen /HPF 12/05/2024 2:20 PM EDT [facility] Non Squamous Epithelial Cells Present Absent 12/05/2024 2:20 PM EDT [facility] Urine URINE SPECIMEN COLLECTION, CLEAN CATCH / Unknown 12/05/2024 12:45 PM EDT 12/05/2024 2:07 PM EDT Yamel Hurt SURFACE WATER MANAGER URINE ORDERABLES Final Result Performing Organization Address [facility] Co de Phone Number [facility] [address] [place] [address], [facility] [phone] * Urine Culture (12/05/2024 12:45 PM EDT) Result Recollect Specimen - 3 or more organisms suggests contamination 12/07/2024 8:55 AM EDT [facility] Urine URINE SPECIMEN COLLECTION, CLEAN CATCH / Unknown 12/05/2024 12:45 PM EDT 12/05/2024 2:19 PM EDT Yamel Hurt NP MICROBIOLOGY - GENERAL ORDERAB LES Final Result Performing Organization Address [facility] Co de Phone Number [facility] [address] [phone] * XR chest 1 view portable / [...] 10.0 K/ L 12/05/2024 11:34 AM EDT [facility] RBC 4.85 3.93 - 6.08 M/ L 12/05/2024 11:34 AM EDT [facility] Hemoglobin 13.8 11.2 - 15.7 GM/DL 12/05/2024 11:34 AM EDT [facility] Hematocrit 41.5 34.1 - 44.9 % 12/05/2024 11:34 AM EDT [facility] MCV 86 79 - 95 fL 12/05/2024 11:34 AM EDT [facility] MCH 28.5 25.6 - 32.2 pg 12/05/2024 11:34 AM EDT [facility] MCHC 33.3 32.2 - 36.5 GM/DL 12/05/2024 11:34 AM EDT [facility] RDW 13.3 11.6 - 14.4 % 12/05/2024 11:34 AM EDT [facility] Platelets 195 163 - 369 K/CU MM 12/05/2024 11:34 AM EDT [facility] MPV 9.6 9.4 - 12.4 fL 12/05/2024 11:34 AM EDT [facility] % Neutros 70 34 - 71 % 12/05/2024 11:34 AM EDT [facility] % Lymphs 16(L) 19 - 53 % 12/05/2024 11:34 AM EDT [facility] % Monos 9 4 - 13 % 12/05/2024 11:34 AM EDT [facility] % Eos 5 1 - 7 % 12/05/2024 11:34 AM EDT [facility] % Baso 1 0 - 1 % 12/05/2024 11:34 AM EDT [facility] # Neutros 4.02 1.56 - 6.13 K/ L 12/05/2024 11:34 AM EDT [facility] # Lymphs 0.90(L) 1.18 - 3.74 K/ L 12/05/2024 11:34 AM EDT [facility] # Monos 0.52 0.24 - 0.82 K/ L 12/05/2024 11:34 AM EDT [facility] # Eos 0.27 0.04 - 0.54 K/ L 12/05/2024 11:34 AM EDT [facility] # Baso 0.05 0.01 - 0.08 K/ L 12/05/2024 11:34 AM EDT [facility] Immature Granulocytes-Re lative 0.30 0.00 - 0.60 % 12/05/2024 11:34 AM EDT [facility] # IG 0.02 0.00 - 0.05 K/uL 12/05/2024 11:34 AM EDT [facility] Blood Venipuncture / Unknown 12/05/2024 11:30 AM EDT 12/05/2024 11:30 AM EDT Narrative [facility] - 12/05/2024 11:34 AM EDT When [...] NP LAB BLOOD ORDERABLES Final Res ult [facility] [address] [phone] * aPTT (12/05/2024 11:30 AM EDT) [facility] aPTT 25.9 22.0 - 32.0 seconds 12/05/2024 11:48 AM EDT [facility] Blood Venipuncture / Unknown 12/05/2024 11:30 AM EDT 12/05/2024 11:30 AM EDT [facility] LAB BLOOD ORDERABLES Final Res ult Performing Organization Address [facility] Co de Phone Number [facility] [address] [phone] * Prothrombin time/INR (12/05/2024 11:30 AM EDT) Protime 10.4 9.0 - 12.0 seconds 12/05/2024 11:48 AM EDT [facility] INR 0.95 0.80 - 1.10 12/05/2024 11:48 AM EDT [facility] Comment: Recommended therapeutic ranges using International [...] ORDERABLES Final Res ult Performing Organization Address [facility] Co de Phone Number [facility] [address] [phone] * (ABNORMAL) Comprehensive metabolic panel (12/05/2024 11:30 AM EDT) Sodium 138 136 - 146 meq/L 12/05/2024 11:55 AM EDT [facility] Potassium 3.9 3.5 - 5.1 meq/L 12/05/2024 11:55 AM EDT [facility] Chloride 106 102 - 112 meq/L 12/05/2024 11:55 AM EDT [facility] CO2 26 21 - 32 meq/L 12/05/2024 11:55 AM [facility] Calcium 9.6 8.5 - 10.1 mg/dL 12/05/2024 11:55 AM [facility] Glucose 109(H) 74 - 106 mg/dL 12/05/2024 11:55 AM [facility] BUN 24(H) 7 - 22 mg/dL 12/05/2024 11:55 AM [facility] Creatinine 1.18(H) 0.55 - 1.02 mg/dL 12/05/2024 11:55 AM [facility] BUN/Creatinine 20 8 - 20 12/05/2024 11:55 AM [facility] Albumin 3.9 3.4 - 5.0 g/dL 12/05/2024 11:55 AM [facility] Alkaline Phosphatase 97 27 - 136 U/L 12/05/2024 11:55 AM [facility] ALT 32 12 - 78 U/L 12/05/2024 11:55 AM [facility] AST 24 5 - 37 U/L 12/05/2024 11:55 AM [facility] Total Bilirubin 0.5 0.2 - 1.3 mg/dL 12/05/2024 11:55 AM [facility] Protein, Total 7.6 6.4 - 8.2 gm/dL 12/05/2024 11:55 AM [facility] Anion Gap 10 9 - 20 12/05/2024 11:55 AM [facility] A/G Ratio 1.1 1.1 - 2.5 12/05/2024 11:55 AM [facility] Globulin 3.7 1.5 - 4.5 g/dL 12/05/2024 11:55 AM [facility] Osmolality Calc 280.3 mOsm/kg 11:55 AM [facility] eGFR (mL/min/1.73m2) 53(L) >=60 mL/min/1.7 3m2 12/05/2024 11:55 AM [facility] Comment:ESTIMATED GFR IS NOT ACCURATE CREATININE CLEARANCE IN PREDICTING GLOMERULAR FILTRATION RATE. ESTIMATED GFR IS NOT APPLICABLE FOR DIALYSIS PATIENTS. Blood Venipuncture / Unknown 12/05/2024 11:30 AM EDT 12/05/2024 11:30 AM EDT Yamel Hurt NP LAB BLOOD ORDERABLES Final Res ult Performing Organization Address [facility] Co de Phone Number [facility] [address] [phone] * ECG 12 lead (12/05/2024 11:03 AM EDT) SYSTOLIC BLOOD PRESSURE (MCT) 127 mmHg GE MUSE DIASTOLIC BLOOD PRESSURE (MCT) 77 mmHg GE MUSE VENTRICULAR RATE EKG/MIN 73 BPM GE MUSE ATRIAL RATE (MCT) 73 BPM GE MUSE SC Interval 142 ms GE MUSE QRS-INTERVAL (MSEC) 66 ms GE MUSE QT Interval 394 ms GE MUSE QTC Interval 434 ms GE MUSE P Trout 38 degrees GE MUSE R AXIS (MCT) 67 degrees GE MUSE T Wave Trout 55 degrees GE MUSE [place] Diagnosis Normal sinus rhythm Low voltage QRS Borderline ECG No previous ECGs available Confirmed by Bhumika URBANO SUZANNE ([id number]) on 12/09/2024 10:52:48 AM GE MUSE 12/05/2024 11:0 3 AM EDT 12/09/2024 10:52 AM EDT Yamel Hurt NP ECG ORDERABLES Final Result Performing Organization Address [facility] Co de Phone Number GE MUSE * (ABNORMAL) MM digital mammo diagnostic with [...] recommended imaging studies/procedures. At our facility, a um[place] tribe marker is positioned over a visible skin [...] history of breast cancer COMPARISON STUDY: [facility] 08/13/2024 FINDINGS: Craniocaudal and mediolateral oblique images [...] Most Recently Relevant to Health Maintenance Insurance [facility] Member Subscriber Plan / Payer (Ef fective 2023-Present) Name:Anisa Hernandes Relation to Subscriber:Self Name:Anisa Hernandes Payer ID:Not on file Type:Not on file Address: [facility] [id number] [place] [id number] Care Teams Stone Cutter Relationship Specialty Start Date End Date Lena Aguilera, MALARIOLOGIST [address] [place] [address] PCP - General Family Medicine 10/28/23 Nick Rasmussen PA-C [address] [place] [address] Orthopedic Surgery 08/07/23 Nimisha Nuñez PA-C [address] [place], [place] [id number] Physician Oil Burner Mechanic Orthopedic Surgery 02/05/24
--- OUTSIDE RECORDS SUMMARY | 2025-02-24 14:19 | XMS_ITS | Referral Summary ---
Author Organization [employer] ([place], [place], [place], [place]) Address [address] [place] [address] Care Team Providers Care Education Courses Sales Representative Name Role Phone Nick Rasmussen PA-C Unavailable [phone] Lena Aguilera APRN Primary Care Provider [phone] Nimisha Nuñez PA-C Unavailable [phone] Encounters Date Type Department Care Team Description 02/11/2025 10:00 AM EDT Office Visit [facility] Orthopedics [facility] [address] [place] [address] Nick Rasmussen PA-C Primary osteoarthritis of left knee (Primary Dx); Primary osteoarthritis of right knee 12/23/2024 2:15 PM EDT Office Visit [facility] Orthopedics [facility] [address] [place] [address] Nick Rasmussen PA-C Left carpal tunnel syndrome (Primary Dx) 12/18/2024 Orders Only [facility] Neurology - [facility] [address] [place] [address] ProviderBeena MD 12/18/2024 Travel 12/18/2024 9:00 AM EDT Procedure Visit [facility] Neurology - [facility] [address] [place] [address] Nick Rasmussen PA-C Everman, Nicole A, MD Numbness and tingling of both upper extremities 12/05/2024 Travel 12/05/2024 10:57 AM EDT - 12/05/2024 2:53 PM EDT Emergency [facility] Emergency Department [address] [place] [address] Mayank Patrick MD Acute cystitis with hematuria (Primary Dx); Chest pain, unspecified type Discharge Disposition: Home or Self Care from [...] knee 1 mL IAtc Once 02/11/2025 02/12/20 25 Ended methylPREDNISolone acetate (DEPO-MEDROL) injection 80 mgIndications:Primary [...] Date Vijay rded Speak language other than [place] at home Not on file 07/19/2023 [...] Description 05/20/2025 8:30 AM EST Office Visit [facility] Orthopedics - [address] [place] [address] Nick Rasmussen PA-C [address] [place] [address] 08/19/2025 9:30 AM EST Appointment [facility] Breast [facility] [address] [place] [address] Procedures Procedure Name Priority Date/Time [...] Final Res ult [facility] [address] [phone] * (ABNORMAL) Urinalysis, Reflex Microscopic and Culture If Indicated (12/05/2024 12:45 PM EDT) Color, UA Yellow 12/05/2024 2:20 PM EDT [facility] Clarity, UA Turbid(A) Clear 12/05/2024 2:20 PM EDT [facility] Specific Hardy, UA 1.024 1.005 - 1.030 12/05/2024 2:20 [...] ORDERABLES Final Result [facility] [address] [place] [address], [facility] [phone] * (ABNORMAL) Urinalysis Microscopic Only (12/05/2024 12:45 [...] URINE ORDERABLES Final Result Performing Organization Address [facility]/ZIP Co de Phone Number [facility] [address] [phone] * Urine Culture (12/05/2024 12:45 PM EDT) Result Recollect Specimen - 3 or more organisms suggests contamination 12/07/2024 8:55 AM EDT [facility] Urine URINE SPECIMEN COLLECTION, CLEAN CATCH / Unknown 12/05/2024 12:45 PM EDT 12/05/2024 2:19 PM EDT Yamel Hurt NP MICROBIOLOGY - GENERAL ORDERAB LES Final Result Performing Organization Address [facility]/ZIP Co de Phone Number [facility] [address] [phone] * XR chest 1 view portable / [...] noted Atypical Lymph flag noted Yamel Hurt ARTERIAL EMBALMER LAB BLOOD ORDERABLES Final Res ult Performing Organization Address [facility]/ZIP Co de Phone Number [facility] [address] [phone] * aPTT (12/05/2024 11:30 AM EDT) aPTT 25.9 22.0 - 32.0 seconds 12/05/2024 11:48 AM EDT [facility] Blood Venipuncture / Unknown 12/05/2024 11:30 AM EDT 12/05/2024 11:30 AM EDT Yamel Blu ARTERIAL EMBALMER LAB BLOOD ORDERABLES Final Res ult Performing Organization Address [facility] Co de Phone Number [facility] [address] [phone] * Prothrombin time/INR (12/05/2024 11:30 AM EDT) [...] Final Res ult [facility] [address] [place] [address], [facility] [phone] * (ABNORMAL) Comprehensive metabolic panel (12/05/2024 11:30 [...] - 106 mg/dL 12/05/2024 11:55 AM EDT [facility] BUN 24(H) 7 - 22 mg/dL 12/05/2024 11:55 AM EDT [facility] Creatinine 1.18(H) 0.55 - 1.02 mg/dL 12/05/2024 11:55 AM EDT [facility] BUN/Creatinine 20 8 - 20 12/05/2024 11:55 AM EDT [facility] Albumin 3.9 3.4 - 5.0 g/dL 12/05/2024 11:55 AM EDT [facility] Alkaline Phosphatase 97 27 - 136 U/L 12/05/2024 11:55 AM EDT [facility] ALT 32 12 - 78 U/L 12/05/2024 11:55 AM EDT [facility] AST 24 5 - 37 U/L 12/05/2024 11:55 AM EDT [facility] Total Bilirubin 0.5 0.2 - 1.3 mg/dL 12/05/2024 11:55 AM EDT [facility] Protein, Total 7.6 6.4 - 8.2 gm/dL 12/05/2024 11:55 AM EDT [facility] Anion Gap 10 9 - 20 12/05/2024 11:55 AM EDT [facility] A/G Ratio 1.1 1.1 - 2.5 12/05/2024 11:55 AM EDT [facility] Globulin 3.7 1.5 - 4.5 g/dL 12/05/2024 11:55 AM EDT [facility] Osmolality Calc 280.3 mOsm/kg 11:55 AM EDT [facility] eGFR (mL/min/1.73m2) 53(L) >=60 mL/min/1.7 3m2 12/05/2024 11:55 AM EDT [facility] Comment:ESTIMATED GFR IS NOT ACCURATE CREATININE CLEARANCE IN PREDICTING GLOMERULAR FILTRATION RATE. ESTIMATED GFR IS NOT APPLICABLE FOR DIALYSIS PATIENTS. Blood Venipuncture / Unknown 12/05/2024 11:30 AM EDT 12/05/2024 11:30 AM EDT us Yamel Hurt NP LAB BLOOD ORDERABLES Final Res ult [facility] [address] [place] [address] * ECG 12 lead (12/05/2024 11:03 AM EDT) SYSTOLIC BLOOD PRESSURE (MCT) 127 mmHg GE MUSE DIASTOLIC BLOOD PRESSURE (MCT) 77 mmHg GE MUSE VENTRICULAR RATE EKG/MIN 73 BPM GE MUSE ATRIAL RATE (MCT) 73 BPM GE MUSE IL Interval 142 ms GE MUSE QRS-INTERVAL (MSEC) 66 ms GE MUSE QT Interval 394 ms GE MUSE QTC Interval 434 ms GE MUSE P [place] 38 degrees GE MUSE R AXIS (MCT) 67 degrees GE MUSE T Wave [place] 55 degrees GE MUSE Soper Diagnosis Normal sinus rhythm Low voltage QRS Borderline ECG No previous ECGs available Confirmed by Bhumika URBANO SUZANNE ([id number]) on 12/09/2024 10:52:48 AM GE MUSE 12/05/2024 11:0 3 AM EDT 12/09/2024 10:52 AM EDT us Yamel Hurt NP ECG ORDERABLES Final Result GE MUSE * (ABNORMAL) MM digital mammo [...] recommended imaging studies/procedures. At our facility, a resighini marker is positioned over a visible skin [...] family history of breast cancer COMPARISON STUDY: [facility] 08/13/2024 FINDINGS: Craniocaudal and mediolateral oblique [...] Most Recently Relevant to Health Maintenance Insurance [facility] Care Teams Education Courses Sales Representative Relationship Specialty Start Date End Date Lena Aguilera APRN [address] [place] [address] PCP - General Family Medicine 10/28/23 Nick Rasmussen PA-C [address] [place] [address] Orthopedic Surgery 08/07/23 Nimisha Nuñez PA-C [address] [place] [address] Physician Hair Spinning Machine Operator Orthopedic Surgery 02/05/24
[2025-02-24 15:40] LABS: Hematocrit 37.9 % (37.0-47.0); Hemoglobin 12.2 g/dL (12.2-16.2); Immature Granulocytes % 0.4 %; Mean Corpuscular HGB Conc 32.2 g/dL (31.8-35.4); Mean Corpuscular Hemoglobin 27.3 pg (27.0-31.2); Mean Corpuscular Volume 84.8 fl (81-99); Nucleated Red Blood Cells % 0 %; Platelet Count 201 K/mm3 (142-424); Red Blood Count 4.47 M/mm3 (4.20-5.40); Red Cell Distribution Width-SD 39.4 fL; White Blood Count 9.3 K/mm3 (4.8-10.8)
[2025-02-24 16:51] LABS: D-Dimer 0.40 ug/mL (0.0-0.5)
[2025-02-24 17:59] LABS: Albumin Level 4.5 g/dl (3.5-5.0); Chloride 106 mmol/L (98-107); Potassium 3.8 mmoL/L (3.5-5.1); Sodium 141 mmol/L (136-145)
[2025-02-24 18:02] LABS: Alanine Aminotransferase 23 U/L (12-78); Albumin/Globulin Ratio 1.9 (1.1-1.8); Alkaline Phosphatase 90 U/L (38-126); Anion Gap 14.8 mEq/L (5-15); Aspartate Amino Transferase 28 U/L (14-36); Bilirubin,Total 0.6 mg/dl (0.2-1.3); Blood Urea Nitrogen 24 mg/dl (7-17); Calcium 10.2 mg/dl (8.4-10.2); Carbon Dioxide 24 mmol/L (22.0-30.0); Creatinine,Serum 1.00 mg/dl (0.52-1.04); Estimated Glomerular Filt Rate 56 ml/min (>60); GFR (African American) 68 ML/MIN (>60); Globulin 2.4 g/dL (1.3-3.2); Glucose 92 mg/dl (74-100); Lipase 123 U/L (23-300); Total Protein,Serum 6.9 g/dl (6.3-8.2)
[2025-02-24 18:12] LABS: NT Pro Brain Natriuretic Pep. 159 pg/mL (0-125)
== END 2025-02-24 23:59 | disposition home or self-care (01) ==
LOC: LAB 14:15
PROVIDERS: PCP Family Medicine; Visit Provider Family Medicine
DX: E03.9 Hypothyroidism, unspecified (principal); R60.9 Edema, unspecified; R73.03 Prediabetes; R55 Syncope and collapse; R42 Dizziness and giddiness; R06.02 Shortness of breath; R68.89 Other general symptoms and signs; R06.09 Other forms of dyspnea; R11.2 Nausea with vomiting, unspecified
CPT/HCPCS: 36415; 80053; 83690; 83880; 85025; 85378

== ENCOUNTER 2025-03-04 07:19 | Outpatient (CLI) | payer OTHER, SELFPAY ==
--- OUTSIDE RECORDS SUMMARY | 2025-02-11 10:00 | XMS_ITS | Encounter Summary ---
Author Organization [employer] ([place], [place], [place], [place]) Address [address] [place] [address] Care Team Providers Care Fingernail Former Name Role Phone Nick Rasmussen PA-C Unavailable [phone] Lena Aguilera APRN Primary Care Provider Nimisha Nuñez PA-C Unavailable [phone] Reason for Visit * Reason Comments Injections Bilateral knee Encounter Details Date Type Department Care Team (Late st Contact Info) Description 02/11/2025 10:00 AM EDT Office Visit [facility] Orthopedics - [address] [place] [address] Nick Rasmussen PA-C [address] [place] [address] Primary osteoarthritis of left knee [...] Date Vijay rded Speak language other than Tongan at home Not on file 07/19/2023 Want [...] 10:00 AM EDT NAME: Anisa Hernandes CSN: [id number] : 1965 PCP: Lena Aguilera APRN REASON [...] WITH POLYPECTOMY; Surgeon: Stephani Romero MD; Location: [facility]; Service: Gastroenterology; Laterality: N/A; HYSTERECTOMY KNEE SURGERY [place] COLON CA SCRN NOT HI RSK IND [...] Description 05/20/2025 8:30 AM EST Office Visit [facility] Orthopedics - [address] [place] [address] Ncik Rasmussen PA-C [address] [place], [place] [id number] 08/19/2025 9:30 AM EST Appointment [facility] 160 [facility] [address] [place] [address] Scheduled Orders Name Type Priority [...] mg documented in this encounter Care Teams Fingernail Former Relationship Specialty Start Date End Date Lena Aguilera, FINANCIAL SERVICES TECHNICIAN [address] [place] [address] PCP - General Family Medicine 10/28/23 Nick Rasmussen PA-C [address] [place] [address] Orthopedic Surgery 08/07/23 Nimisha Nuñez PA-C [address] [place] [address] Physician Paint Stock Clerk Orthopedic Surgery 02/05/24 documented as of this encounter
--- OUTSIDE RECORDS SUMMARY | 2025-03-04 07:21 | XMS_ITS | Clinical Summary ---
Author Organization [facility] Address [address] [place] [address] Phone Care Team Providers Care Software Build Engineer Name Role Phone Lena Aguilera APRN Primary Care Physician [phone] Conditions or Problems Problem Name Problem Code [...] [BMI] 32.0-32.9, adult Urinary incontinenc e, mild 826754016 (SNOMED CT) 10/29 Active 10/29 Lena Aguilera APRN Urinary incontinence Body mass index (BMI) 32.0-32.9; adult Z68.32 (ICD-10-CM ) 10/29 Removed 10/29 Lena Joneswell BODY PRESS OPERATOR Body mass index [BMI] 32.0-32.9, adult Body mass index (BMI) 33.0-33.9; adult Z68.33 (ICD-10-CM ) 07/31 Correction 07/31 Lena Joneswell BODY PRESS OPERATOR Body mass index [BMI] 33.0-33.9, adult Sinusitis 42478190 (SNOMED CT) 10/29 Inactive 10/29 Lena oJneswell BODY PRESS OPERATOR Sinusitis [facility] Lack of physical exercise Z72.3 [...] [BMI] 33.0-33.9, adult Followup of lab tests 679466044 (SNOMED CT) 07/31 Active 07/31 Lenajose JonesWillymike GAGNON Follow-up status Body mass index (BMI) 33.0-33.9; adult Z68.33 (ICD-10-CM ) 07/25 Removed 07/25 Lena Jonesmike GAGNON Body mass index [BMI] 33.0-33.9, adult Body mass index (BMI) 33.0-33.9; adult Z68.33 (ICD-10-CM ) Correction Lenajose JonesWillymike GAGNON Body mass index [BMI] 33.0-33.9, adult Prediabetes 475852767 (SNOMED CT) 2020 Active 07/25 Lena Aguilera APRN Prediabetes Joint pain 13151386 (SNOMED CT) 07/25 Active 07/25 Lena Aguilera BODY PRESS OPERATOR Pain of joint Body mass index (BMI) 33.0-33.9; adult Z68.33 (ICD-10-CM ) Removed Bianka Vania BODY PRESS OPERATOR Body mass index [BMI] 33.0-33.9, adult Influenza 7608657 (SNOMED CT) Active Bianka Vania BODY PRESS OPERATOR Influenza Body mass index (BMI) 33.0-33.9; adult Z68.33 (ICD-10-CM ) 01/24 Correction 01/24 Bianka Vania BODY PRESS OPERATOR Body mass index [BMI] 33.0-33.9, adult Body aches 43209190 (SNOMED CT) Active Bianka Vania BODY PRESS OPERATOR Generalized aches and pains Body mass index (BMI) 33.0-33.9; adult Z68.33 (ICD-10-CM ) 01/24 Removed 01/24 Lena Aguilera BODY PRESS OPERATOR Body mass index [BMI] 33.0-33.9, adult Body mass index (BMI) 34.0-34.9; adult Z68.34 (ICD-10-CM ) 07/10 Correction 07/10 Lena Aguilera BODY PRESS OPERATOR Body mass index [BMI] 34.0-34.9, adult Body [...] index [BMI] 38.0-38.9, adult Colon cancer screening 951453054 (SNOMED CT) 10/27 Active 10/27 Gavin Plascencia MD Screening for malignant neoplasm of colon Mammographi c screening for breast cancer 37857467 (SNOMED CT) 10/27 Active 10/27 Gavin Plascencia MD Screening mammography Exposure to COVID-19 coronavirus 149916011 (SNOMED CT) 07/10 Active 07/10 Lena Aguilera [...] [BMI] 19.9 or less, adult Liver lesion 499422271 (SNOMED CT) 12/28 Active 12/28 Govind Dodson APRN Lesion of liver Abdominal pain, right upper quadrant 788311557 (SNOMED CT) 12/15 Active 12/15 Paola Fuller MA Right upper quadrant pain Diarrhea 14253587 (SNOMED CT) 12/15 Active 12/15 aPola Fuller MA Diarrhea Nausea and vomiting 70768180 (SNOMED CT) 12/15 Active 12/15 Paola Fuller MA Nausea and vomiting Body mass index (BMI) 19 or less; adult Z68.1 (ICD-10-CM ) 10/21 Removed 10/21 Govind Dodson BODY PRESS OPERATOR Body mass index [BMI] 19.9 or less, adult Body mass index (BMI) 39.0-39.9; adult Z68.39 (ICD-10-CM ) 09/08 Correction 09/08 Govind Dodson BODY PRESS OPERATOR Body mass index [BMI] 39.0-39.9, adult Vaginal lesion 279908565 (SNOMED CT) 10/21 Active 10/21 Govind Dodson BODY PRESS OPERATOR Vaginal lesion Nausea and vomiting 64088034 (SNOMED CT) 10/21 Active 10/21 Govind Dodson BODY PRESS OPERATOR Nausea and vomiting Cough 45529575 (SNOMED CT) 10/21 Active 10/21 Govind Dodson BODY PRESS OPERATOR Cough Body mass index (BMI) 39.0-39.9; adult Z68.39 (ICD-10-CM ) 09/08 Removed 09/08 Govind Dodson BODY PRESS OPERATOR Body mass index [BMI] 39.0-39.9, adult Body mass index (BMI) 40.0-44.9; adult Z68.41 (ICD-10-CM ) 02/25 Correction 02/25 Govind Dodson BODY PRESS OPERATOR Body mass index [BMI] 40.0-44.9, adult Vitamin D deficiency 67090534 (SNOMED CT) 09/08 Active 09/08 Govind Dodson BODY PRESS OPERATOR Vitamin D deficiency Gout 61784902 (SNOMED CT) 09/08 Active 09/08 Govind Dodson BODY PRESS OPERATOR Gout Body mass index (BMI) 40.0-44.9; adult Z68.41 (ICD-10-CM ) 02/25 Removed 02/25 Govind Dodson APRN Body mass index [BMI] 40.0-44.9, adult Shoulder joint pain, right 876757448 (SNOMED CT) 02/25 Active 02/25 Govind Dodson BODY PRESS OPERATOR Shoulder joint pain Counseling for nutrition Z71.3 (ICD-10-CM ) 02/25 Inactive 02/25 Govind Dodson APRN Dietary counseling and surveillance Body mass index (BMI) 39.0-39.9; adult Z68.39 (ICD-10-CM ) 11/12 Correction 11/12 Govind Dodson BODY PRESS OPERATOR Body mass index [BMI] 39.0-39.9, adult Prediabetes 753772200 (SNOMED CT) 02/25 Active 02/25 Govind Dodson BODY PRESS OPERATOR Prediabetes Body mass index (BMI) 39.0-39.9; adult Z68.39 (ICD-10-CM ) 11/12 Removed 11/12 Govind Dodson BODY PRESS OPERATOR Body mass index [BMI] 39.0-39.9, adult Counseling for nutrition Z71.3 (ICD-10-CM ) 11/12 Inactive 11/12 Govind Dodson BODY PRESS OPERATOR Dietary counseling and surveillance Body mass index (BMI) 39.0-39.9; adult Z68.39 (ICD-10-CM ) 08/21 Correction 08/21 Govind Dodson APRN Body mass index [BMI] 39.0-39.9, adult Enlarged lymph nodes 41255348 (SNOMED CT) 11/12 Active 11/12 Govind Dodson BODY PRESS OPERATOR Lymphadenopath y Elevated liver enzymes 574073452 (SNOMED CT) 08/25 Active 08/25 Govind Dodson BODY PRESS OPERATOR Liver enzymes outside reference range Hyperlipide dillon 98884535 (SNOMED CT) 08/25 Active 08/25 Govind Dodson BODY PRESS OPERATOR Hyperlipidemia Hyperglycem ia 11407980 (SNOMED CT) 08/25 Active 08/25 Govind Dodson BODY PRESS OPERATOR Hyperglycemia Body mass index (BMI) 39.0-39.9; adult Z68.39 (ICD-10-CM ) 08/21 Removed 08/21 Govind Dodson APRN Body mass index [BMI] 39.0-39.9, adult Breast exam 07409214 (SNOMED CT) 08/21 Active 08/21 Govind Dodson BODY PRESS OPERATOR Examination of breast Foot joint pain, left 445313101 (SNOMED CT) 08/21 Active 08/21 Govind Dodson BODY PRESS OPERATOR Pain of joint of foot Knee joint pain, right 48195315 (SNOMED CT) 08/21 Active 08/21 Govind Dodson BODY PRESS OPERATOR Knee pain Dysuria 19239144 (SNOMED CT) 08/21 Active 08/21 Govind Dodson BODY PRESS OPERATOR Dysuria Vaginal discharge 130543167 (SNOMED CT) 08/21 Active 08/21 Govind Dodson BODY PRESS OPERATOR Vaginal discharge Establish care or get acquainted visit 280143190 (SNOMED CT) 08/21 Active 08/21 Govind Dodson APRN Procedure carried out on subject Hypothyroid 47582617 (SNOMED CT) 08/21 Active 08/21 Govind Dodson BODY PRESS OPERATOR Hypothyroidism Hypertensio n, benign 40665547 (SNOMED CT) 08/21 Active 08/21 Govind Dodson BODY PRESS OPERATOR Benign hypertension Hx of hysterectom y, total 203665967 (OMED CT) 08/21 Active 08/21 Goivnd Dodson BODY PRESS OPERATOR Total hysterectomy Medications Medication Instructions Start Date Stop Date Generic Name ND Provider Diflucan 150 mg tablet Take 1 tablet by mouth single dose May repeat in 7 days 11/05 Diflucan 150 mg tablet Lena Willy BODY PRESS OPERATOR NATURAL VITAMIN D-3 125 MCG (5000 UT) TABS Take 1 tablet by mouth once a day 11/05 cholecalciferol (vitamin d3) 42147804222 Lena Willymike JENKINSN AMOXICILLIN 500 MG CAPS Take 1 capsule by mouth twice a day for 10 days 10/29 amoxicillin 12994059727 Lena Willy BODY PRESS OPERATOR GOODSENSE ASPIRIN 81 MG CHEW 08/07 aspirin 79697398141 Lena Willy BODY PRESS OPERATOR FISH OIL 1000 MG CAPS Take 1 capsule by mouth twice a day 07/25 omega 8-fdo-bjt-fish oil 76409645374 Lena Aguilera APRN GOODSENSE ASPIRIN 81 MG CHEW Take 1 tablet by mouth once a day 08/07 aspirin 55151855608 Lena Aguilera APRN LISINOPRIL-HYDROCHLO ROTHIAZIDE 20-12.5 MG TABS Take 1 tablet by mouth once a day 07/10 lisinopril-hydroch lorothiazide 96327944627 Lena Aguilera APRN FISH OIL 1000 MG CAPS Take 1 capsule by mouth twice a day 07/25 omega 6-jgl-vnb-fish oil 17180417293 Lena Aguilera APRN LEVOTHYROXINE SODIUM 75 MCG TABS Take 1 tablet by mouth once a day 08/21 levothyroxine 17127140135 Lena Aguilera APRN LISINOPRIL-HYDROCHLO ROTHIAZIDE 20-12.5 MG TABS Take 1 tablet by mouth once a day 07/10 lisinopril-hydroch lorothiazide 60227209913 Marine Lawrence APRN LEVOTHYROXINE SODIUM 75 MCG TABS Take 1 tablet by mouth once a day 08/21 levothyroxine 71827056654 Marine Lawrence APRN FISH OIL 1000 MG CAPS Take 1 capsule by mouth twice a day 07/25 omega 2-ppf-reu-fish oil 47873202835 Lena Aguilera APRN TAMIFLU 75 MG CAPS Take 1 capsule by mouth twice a day FOR FIVE DAYS 07/25 oseltamivir 18778776121 Lena Aguilera APRN PREDNISONE 20 MG TABS Take 1 tablet by mouth twice a day for 5 days 07/25 prednisone 79989122465 Lena Aguilera APRN PRAVASTATIN SODIUM 20 MG TABS Take 1 tablet by mouth once a day 01/24 pravastatin 05680696325 Lena Aguilera APRN TAMIFLU 75 MG CAPS Take 1 capsule by mouth twice a day FOR FIVE DAYS oseltamivir 60220537809 Lena Aguilera APRN PREDNISONE 20 MG TABS Take 1 tablet by mouth twice a day for 5 days prednisone 07125684939 Lena Aguilera APRN PRAVASTATIN SODIUM 20 MG TABS Take 1 tablet by mouth once a day 01/24 pravastatin 89737164830 Lena Aguilera APRN PRAVASTATIN SODIUM 20 MG TABS Take 1 tablet by mouth once a day 01/24 pravastatin 89563979932 Rebecca Abhinav BODY PRESS OPERATOR TAMIFLU 75 MG CAPS Take 1 capsule by mouth twice a day FOR FIVE DAYS oseltamivir 22437195553 Bianka Vania BODY PRESS OPERATOR PREDNISONE 20 MG TABS Take 1 tablet by mouth twice a day for 5 days prednisone 40978718933 Bianka Vania KALIN GOODSENSE ASPIRIN 81 MG CHEW aspirin 62370480069 Lena Aguilera APRN METFORMIN HCL 500 MG TABS Take increase to 2 tablets in AM and 1 tablet in PM metformin 54357281196 Lena Aguilera APRN ALLOPURINOL 100 MG TABS TAKE 1 TABLET BY MOUTH ONCE DAILY 01/07 allopurinol 52936587058 Lena Aguilera APRN LEVOTHYROXINE SODIUM 75 MCG TABS Take 1 tablet by mouth once a day 08/21 levothyroxine 54120615850 Lena Aguilera APRN LISINOPRIL-HYDROCHLO ROTHIAZIDE 20-12.5 MG TABS Take 1 tablet by mouth once a day 07/10 lisinopril-hydroch lorothiazide 75467807299 Lena Aguilera APRN PRAVASTATIN SODIUM 20 MG TABS Take 1 tablet by mouth once a day 01/24 pravastatin 16386679994 Lena Aguilera APRN METFORMIN HCL 500 MG TABS Take increase to 2 tablets in AM and 1 tablet in PM metformin 92059595173 Gavin Plascencia MD PRAVASTATIN SODIUM 10 MG TABS Take 1 tablet by mouth every night 09/09 pravastatin 35250188787 Gavin Plascencia MD METHOCARBAMOL 750 MG TABS TAKE 1 TABLET BY MOUTH THREE TIMES DAILY as needed for muscle spasms. 07/10 methocarbamol 93218739443 Gavin Plascencia MD LEVOTHYROXINE SODIUM 75 MCG TABS Take 1 tablet by mouth once a day 08/21 levothyroxine 39528665288 Gavin Plascencia MD NAPROXEN 500 MG TABS Take 1 tablet by mouth twice a day as needed 08/21 naproxen 23265116797 Gavin Plascencia MD LISINOPRIL-HYDROCHLO ROTHIAZIDE 20-25 MG TABS Take 1 tablet by mouth once a day 07/10 lisinopril-hydroch lorothiazide 94370168861 Gavin Plascencia MD LISINOPRIL-HYDROCHLO ROTHIAZIDE 20-12.5 MG TABS Take 1 tablet by mouth once a day 07/10 lisinopril-hydroch lorothiazide 60918300545 Gavin Plascencia MD CYCLOBENZAPRINE HCL 10 MG TABS Take 1 tablet by mouth at bedtime 07/10 cyclobenzaprine 78160120494 Gavin Plascencia MD METFORMIN HCL 500 MG TABS Take increase to 2 tablets in AM and 1 tablet in PM metformin 71275170647 Holly Nolan APRN PRAVASTATIN SODIUM 10 MG TABS Take 1 tablet by mouth every night 09/09 pravastatin 50914278978 Holly Nolan APRN LISINOPRIL-HYDROCHLO ROTHIAZIDE 20-25 MG TABS Take 1 tablet by mouth once a day lisinopril-hydroch lorothiazide 51977067342 Holly Nolan APRN LEVOTHYROXINE SODIUM 75 MCG TABS Take 1 tablet by mouth once a day 08/21 levothyroxine 26194411297 Holly Blancheujlienne BODY PRESS OPERATOR METHOCARBAMOL 750 MG TABS TAKE 1 TABLET BY MOUTH THREE TIMES DAILY as needed for muscle spasms. methocarbamol 62346404497 Holly Nolan APRN LEVOTHYROXINE SODIUM 75 MCG TABS Take 1 tablet by mouth once a day 08/21 levothyroxine 56681680416 Govind Dodson APRN PRAVASTATIN SODIUM 10 MG TABS Take 1 tablet by mouth every night 09/09 pravastatin 73268059029 Govind Dodson APRN METFORMIN HCL 500 MG TABS Take increase to 2 tablets in AM and 1 tablet in PM metformin 33326436019 Govind Dodson APRN METHOCARBAMOL 750 MG TABS TAKE 1 TABLET BY MOUTH THREE TIMES DAILY as needed for muscle spasms. methocarbamol 16499551178 Govind West JENKINSN HYDROCHLOROTHIAZIDE 25 MG TABS Take 1 tablet by mouth once a day TAKE ONE TABLET BY MOUTH DAILY 03/17 hydrochlorothiazid e 15072390078 Govind West GAGNON VITAMIN D3 1.25 MG (41736 UT) CAPS Take 1 capsule by mouth once a week 09/08 cholecalciferol (vitamin d3) 42468399654 Govind Dodson APRN LISINOPRIL-HYDROCHLO ROTHIAZIDE 20-25 MG TABS Take 1 tablet by mouth once a day lisinopril-hydroch lorothiazide 06672255850 Govind Dodson APRN METFORMIN HCL 500 MG TABS Take increase to 2 tablets in AM and 1 tablet in PM metformin 84777675525 Gavin Plascencia MD ALLOPURINOL 100 MG TABS TAKE 1 TABLET BY MOUTH ONCE DAILY 01/07 allopurinol 19317493277 Gavin Plascencia MD LEVOTHYROXINE SODIUM 75 MCG TABS Take 1 tablet by mouth once a day 08/21 levothyroxine 43659155776 Gavin Plascencia MD VITAMIN D3 1.25 MG (60049 UT) CAPS Take 1 capsule by mouth once a week 09/08 cholecalciferol (vitamin d3) 30631190884 Gavin Plascencia MD HYDROCHLOROTHIAZIDE 25 MG TABS Take 1 tablet by mouth once a day TAKE ONE TABLET BY MOUTH DAILY 03/17 hydrochlorothiazid e 25454612223 Gavin Plascencia MD PRAVASTATIN SODIUM 10 MG TABS Take 1 tablet by mouth every night 09/09 pravastatin 95952124457 Gavin Plascencia MD METFORMIN HCL 500 MG TABS Take 1 tablet by mouth twice a day increase to 2 tablets in AM and 1 tablet in PM 04/07 metformin 44458860383 Govind Dodosn APRN METFORMIN HCL 500 MG TABS Take increase to 2 tablets in AM and 1 tablet in PM metformin 21298466238 Govind Dodson APRN LEVOTHYROXINE SODIUM 75 MCG TABS Take 1 tablet by mouth once a day 08/21 levothyroxine 32612289547 Govind Dodson APRN METFORMIN HCL 500 MG TABS Take 1 tablet by mouth twice a day 09/09 metformin 05376945113 Govind Dodson APRN HYDROCHLOROTHIAZIDE 25 MG TABS Take 1 tablet by mouth once a day TAKE ONE TABLET BY MOUTH DAILY 03/17 hydrochlorothiazid e 01770944669 Govind Dodson APRN METFORMIN HCL 500 MG TABS Take 1 tablet by mouth twice a day increase to 2 tablets in AM and 1 tablet in PM metformin 73590987947 Govind Dodson APRN LEVOTHYROXINE SODIUM 75 MCG TABS Take 1 tablet by mouth once a day 08/21 levothyroxine 47890942257 Joana Boudreaux APRN HYDROCHLOROTHIAZIDE 25 MG TABS Take 1 tablet by mouth once a day 08/21 hydrochlorothiazid e 89223550734 Paola Fuller MA HYDROCHLOROTHIAZIDE 25 MG TABS Take 1 tablet by mouth once a day TAKE ONE TABLET BY MOUTH DAILY 03/17 hydrochlorothiazid e 59128097398 Joana Boudreaux APRN ALLOPURINOL 100 MG TABS Take 1 tablet by mouth once a day 09/08 allopurinol 42936882612 Govind Dodson APRN ALLOPURINOL 100 MG TABS TAKE 1 TABLET BY MOUTH ONCE DAILY 01/07 allopurinol 97479847779 Govind Dodson APRN NAPROXEN 500 MG TABS Take 1 tablet by mouth twice a day as needed 08/21 naproxen 61571092279 Govind Dodson APRN VITAMIN D3 1.25 MG (22102 UT) CAPS Take 1 capsule by mouth once a week 09/08 cholecalciferol (vitamin d3) 73192587411 Govind Dodson APRN ALLOPURINOL 100 MG TABS Take 1 tablet by mouth once a day 09/08 allopurinol 63320040923 Govind Dodson APRN IMODIUM A-D 2 MG TABS TAKE 2 TABLETS BY MOUTH ONCE THEN TAKE 1 TABLET AFTER EACH LOOSE BOWEL MOVEMENT. MAX 4 TABLETS IN 24 HOURS 10/21 LOPERAMIDE HCL Govind Dodson KALIN LEVOTHYROXINE SODIUM 75 MCG TABS Take 1 tablet by mouth once a day 08/21 levothyroxine 21389507018 Govind Dodson APRN METFORMIN HCL 500 MG TABS Take 1 tablet by mouth twice a day 09/09 metformin 84035406755 Govind Dodson APRN PRAVASTATIN SODIUM 10 MG TABS Take 1 tablet by mouth every night 09/09 pravastatin 93929762808 Govindravi Dodson KALIN HYDROCHLOROTHIAZIDE 25 MG TABS Take 1 tablet by mouth once a day 08/21 hydrochlorothiazid e 96568725389 Paloa Alina MA IMODIUM A-D 2 MG TABS 1 tablet by mouth four times a day TAKE 2 TABLETS BY MOUTH ONCE THEN TAKE 1 TABLET AFTER EACH LOOSE BOWEL MOVEMENT. MAX 4 TABLETS IN 24 HOURS 12/15 LOPERAMIDE HCL Govind Dodson KALIN ONDANSETRON 8 MG TBDP Take 1 tablet by mouth every six to eight hours as needed for nausea/vomiti ng 12/15 ondansetron 51624312866 Govindravi Dodson KALIN VALTREX 1 GM TABS TAKE 1 TABLET BY MOUTH 2 TIMES A DAY 10/21 VALACYCLOVIR HCL 05365129464 Govind Dodson KALIN IMODIUM A-D 2 MG TABS TAKE 2 TABLETS BY MOUTH ONCE THEN TAKE 1 TABLET AFTER EACH LOOSE BOWEL MOVEMENT. MAX 4 TABLETS IN 24 HOURS 10/21 LOPERAMIDE HCL 23063024765 Govind Dodson APRN ONDANSETRON HCL 8 MG TABS TAKE 1 TABLET BY MOUTH EVERY 8 HOURS NEEDED FOR NAUSEA/VOMTIN G 10/21 ONDANSETRON HCL 40930720714 Govind Dodson APRN METFORMIN HCL 500 MG TABS TAKE 1 TABLET BY MOUTH 2 TIMES A DAY 09/09 METFORMIN HCL 31409882210 Govind Dodson BODY PRESS OPERATOR PRAVASTATIN SODIUM 10 MG TABS TAKE 1 TABLET BY MOUTH AT BEDTIME FOR CHOLESTEROL 09/09 PRAVASTATIN SODIUM 61296666189 Govind Dodson APRN VITAMIN D3 1.25 MG (29008 UT) CAPS TAKE 1 CAPSULE BY MOUTH ONCE PER WEEK 09/08 CHOLECALCIFEROL 97943620482 Govind Dodson APRN ALLOPURINOL 100 MG TABS TAKE 1 TABLET BY MOUTH ONCE A DAY 09/08 ALLOPURINOL 38593349503 Govind Dodson APRN PRAVASTATIN SODIUM 10 MG TABS TAKE 1 TABLET BY MOUTH AT BEDTIME FOR CHOLESTEROL 02/26 PRAVASTATIN SODIUM 28484196868 Govind Dodson APRN METFORMIN HCL 500 MG TABS TAKE 1 TABLET BY MOUTH 2 TIMES A DAY 02/26 METFORMIN HCL 21960698412 Govind Dodson APRN METFORMIN HCL 500 MG TABS TAKE 1 TABLET BY MOUTH 2 TIMES A DAY 02/26 METFORMIN HCL 90439564057 Govind Dodson APRN PRAVASTATIN SODIUM 10 MG TABS TAKE 1 TABLET BY MOUTH AT BEDTIME FOR CHOLESTEROL 02/26 PRAVASTATIN SODIUM 81313472774 Govind oDdson APRN LEVOTHYROXINE SODIUM 75 MCG TABS TAKE 1 TABLET BY MOUTH ONCE A DAY 08/21 LEVOTHYROXINE SODIUM 99995103342 Govind Dodson APRN NAPROXEN 500 MG TABS TAKE 1 TABLET BY MOUTH 2 TIMES A DAY NEEDED 08/21 NAPROXEN 39139858492 Govind Dodson APRN HYDROCHLOROTHIAZIDE 25 MG TABS TAKE ONE TABLET BY MOUTH ONCE DAILY 08/21 HYDROCHLOROTHIAZID E 70715871475 Govind Dodson APRN LEVOTHYROXINE SODIUM 50 MCG TABS TAKE ONE TABLET BY MOUTH ONCE DAILY 08/21 LEVOTHYROXINE SODIUM 58525146642 Govind Dodson APRN Medications Administered No information available. Allergies, Adverse Reactions, Alerts Allergy Name Reaction Description Start Date Severity Statu s Provider BACTRIM RASH Mild Active Govind hastings BODY PRESS OPERATOR Results Date Name Value Unit Range Flag [...] Office Visit: INFLUENZA LABS ORDERED Strep Screen 90525 Laboratory tests ordered RAPID STREP negative Streptoc [...] in Blood ABS NEUTROPH 3450 CELLS/UL 10*3/uL [phone] N Neutrophils [#/volume] in Blood MPV 10.7 [...] Appointment 08:30 AM Lena Aguilera APRN, [address] , [place], [address], Referral [facility] Therapy [facility], [address], [place], [address] Referral [facility], [address], [place], [place] Referral Orthopedic Refer ral General Pending [...] COV ID-19 Pending order Urine Dip Manual 14717 Pending order T1 CMP Pending order T1 Lipid Panel Pending order T1 TSH reflex to free T4 Pending order Urine Dip Manual 44376 Pending Order exclud ed from report: Pending [...] Procedures Code Procedure Name Date Entry Date [facility]-[id number] Medication Reconciliation CPT-3075F Most recent systolic blood pressure 130-139 mm Hg CPT-3078F Most recent diastoli c blood pressure <80 mm Hg CPT-1159F Medication list docu mented in medical record CPT-1160F Review of all medica tions by a prescribing practitioner [facility] 6399 T1 CBC with diff [facility] 28744 T1 CMP [facility] 84979 T1 Lipid Panel [facility] 43845 T1 TSH reflex to free T4 11/03/07 [facility] 496 T1 HGBA1c SCT-[id number] Medication Reconciliation CPT-3074F Most recent systolic blood pressure <130 mm Hg CPT-3078F Most recent diastoli c blood pressure <80 mm Hg CPT-1159F Medication list docu mented in medical record CPT-1160F Review of all medica tions by a prescribing practitioner [facility] 395 T1 Urine Culture CPT-1159F Medication list docu mented in medical record CPT-1160F Review of all medica tions by a prescribing practitioner SCT-[id number] Lifestyle education regarding diet 08/07 [facility] 79987 T1 CMP [facility] 6399 T1 CBC with diff [facility] 69854 T1 Lipid Panel [facility] 80589 T1 TSH reflex to free T4 10/30/06 [facility] 496 T1 HGBA1c SCT-[id number] Medication Reconciliation Mammo LUCIEN Mammogram CPT-1159F Medication list docu mented in medical record SCT-[id number] Medication Reconciliation [facility] 63903 T1 CMP [facility] 6399 T1 CBC with diff [facility] 19857 T1 Lipid Panel [facility] 496 T1 HGBA1c [facility] 39380 T1 TSH reflex to free T4 10/06/00 CPT-3074F Most recent systolic blood pressure <130 mm Hg CPT-3078F Most recent diastoli c blood pressure <80 mm Hg SCT-[id number] Medication Reconciliation CPT-3074F Most recent systolic blood pressure <130 mm Hg CPT-3078F Most recent diastoli c blood pressure <80 mm Hg CPT-1159F Medication list docu mented in medical record CPT-1160F Review of all medica tions by a prescribing practitioner US URQ LUCIEN Ultrasound RUQ SCT-[id number] Lifestyle education regarding diet 07/25 [facility] 62363 T1 CMP [facility] 6399 T1 CBC with diff [facility] 496 T1 HGBA1c [facility] 48828 T1 Lipid Panel [facility] 33053 T1 TSH reflex to free T4 202 09/29/24 [facility] 4418 T2 Rheumatoid Factor Quant 2 [facility] 249 T2 BEN [facility] 809 T1 Sedimentation Rate RBC 20 24/07/24 [facility] 56648 T1 Acute Hepatits Panel 2023 [facility] 27555 T2 Vitamin D 25 Hydroxy 2023 [facility] CPT-55760 Strep Screen 75274 7 CPT-3074F Most recent systolic blood pressure <130 mm Hg CPT-3079F Most recent diastoli c blood pressure 80-89 mm Hg CPT-1159F Medication list docu mented in medical record SCT-[id number] Medication Reconciliation SCT-[id number] Never smoker CPT-1159F Medication list docu mented in medical record CPT-1160F Review of all medica tions by a prescribing practitioner [facility] 89390 T1 CMP [facility] 6399 T1 CBC with diff [facility] 496 T1 HGBA1c [facility] 40663 T1 Lipid Panel [facility] 74532 T1 TSH reflex to free T4 09/04/26 [facility] 66311 T2 Vitamin D 25 Hydroxy 2022 Mammo LUCIEN Mammogram SCT-[id number] Medication Reconciliation CPT-3074F Most recent systolic blood pressure <130 mm Hg CPT-3079F Most recent diastoli c blood pressure 80-89 mm Hg SCT-[id number] Medication Reconciliation [facility] 6399 T1 CBC with diff [facility] 52709 T1 CMP [facility] 496 T1 HGBA1c [facility] 52561 T1 Lipid Panel [facility] 82042 T1 TSH reflex to free T4 202 [...] Medication list docu mented in medical record SCT-[id number] Medication Reconciliation SCT-836548737 Giving encouragement to exercise SCT-850153940 Dietary management education/guidance/counseling SCT-301995705 Lifestyle education regarding diet 04/26 SCT-623005884 Prescribed activity/exercise education [facility] 67585 T1 CMP [facility] 496 T1 HGBA1c [facility] 05079 T1 Lipid Panel [facility] 97728 T1 TSH reflex to free T4 08/10/26 [facility] 91289 T2 Vitamin D 25 Hydroxy 2021 SCT-[id number] Medication Reconciliation Q968T,[id number] Lipid Profile [id number] SGPT (ALT) [id number],[id number] SGOT (AST) [facility] 6399 T1 CBC with diff [facility] 35214 T1 CMP [facility] 496 T1 HGBA1c [facility] 52894 T1 Lipid Panel [facility] 91498 T1 TSH reflex to free T4 08/04/28 [facility] 905 T1 Uric Acid Mammo LUCIEN Mammogram CPT-3077F Most recent systolic blood pressure >=140 mm Hg CPT-3079F Most recent diastolic blood pressure 80-8 9 mm Hg CPT 68581 [place] [address] SCT-[id number] Medication Reconciliation [facility] 45759 Patient Pay- COVID-19 07/10 SCT-[id number] Medication Reconciliation CPT-3074F Most recent systolic blood pressure <130 mm Hg CPT-3078F Most recent diastoli c blood pressure <80 mm Hg CPT-1159F Medication list docu mented in medical record CPT-1160F Review of all medica tions by a prescribing practitioner [facility] 02795 T1 CMP [facility] 6399 T1 CBC with diff [facility] 496 T1 HGBA1c [facility] 43169 T1 TSH reflex to free T4 202 07/10/06 CT ABD & PELV W&WO CT Abdomen and Pelvis w & w-out con trast CPT-1159F Medication list docu mented in medical record [id number] Medication Reconciliation CPT-1160F Review of all medica tions by a prescribing practitioner SCT-283490568 Giving encouragement to exercise SCT-824203694 Dietary management education/guidance/counseling SCT-536117850 Lifestyle education regarding diet 12/15 SCT-947091148 Prescribed activity/exercise education [facility] 243 T1 Amylase [facility] 6399 T1 CBC with diff [facility] 30377 T1 CMP [facility] 606 T1 Lipase [facility] 63701 Patient Pay- COVID-19 0 12/15 US GB [facility] Ultrasound Gall Bladder 2020 SCT-[id number] Medication Reconciliation [facility] 88001 Patient Pay- COVID-19 10/21 SCT-[id number] Medication Reconciliation CPT-3075F Most recent systolic blood pressure 130-139 mm Hg CPT-3078F Most recent diastoli c blood pressure <80 mm Hg CPT-46721 Urine Dip Manual 95349 09/08 CPT-1159F Medication list docu mented in medical record CPT-1160F Review of all medica tions by a prescribing practitioner SCT-350191299 Giving encouragement to exercise SCT-052207993 Dietary management education/guidance/counseling SCT-313073201 Lifestyle education regarding diet 09/08 SCT-001545445 Prescribed activity/exercise education 2 [facility] 76360 T1 CMP [facility] 70464 T1 Lipid Panel [facility] 89228 T1 TSH reflex to free T4 202 07/03/10 SCT-[id number] Medication Reconciliation CPT-3074F Most recent systolic blood pressure <130 mm Hg CPT-3079F Most recent diastoli c blood pressure 80-89 mm Hg CPT-1159F Medication list docu mented in medical record CPT-1160F Review of all medica tions by a prescribing practitioner X-Ray Shoulder Right X-Ray Shoulder Right [facility] 60837 T1 CMP [facility] 496 T1 HGBA1c [facility] 29750 T1 TSH reflex to free T4 202 [facility] 24036 T1 Lipid Panel SCT-[id number] Medication Reconciliation SCT-[id number] Medication Reconciliation Other Other CPT-3075F Most recent systolic blood pressure 130-139 mm Hg CPT-3079F Most recent diastoli c blood pressure 80-89 mm Hg ORTHO GEN Orthopedic Referral General X-Ray Knee Right X-Ray Knee Right [facility] 496 T1 HGBA1c [facility] 87322 T1 Acute Hepatits Panel 2019 MRI KNEE WO SEH MRI Knee w-o contrast 202 SCT-[id number] Medication Reconciliation [facility] 6399 T1 CBC with diff [facility] 56762 T1 CMP [facility] 37123 T1 Lipid Panel [facility] 27190 T1 TSH reflex to free T4 202 CPT-3074F Most recent systolic blood pressure <130 mm Hg CPT-3079F Most recent diastoli c blood pressure 80-89 mm Hg [facility] 89137 T2 BV Yeast Trich Culture (Affirm) 08/21 X-Ray Foot Left X-Ray Foot Left 1 SCT-329242311 Giving encouragement to exercise SCT-352419108 Dietary management education/guidance/counseling SCT-734817089 Lifestyle education regarding diet 08/21 SCT-064079742 Prescribed activity/exercise education 2 CPT-05202 Urine Dip Auto 32509 Mammo LUCIEN Mammogram Vital Signs Date Name [...]
--- OUTSIDE RECORDS SUMMARY | 2025-03-04 07:22 | XMS_ITS | Encounter Summary ---
Author Organization [employer] ([place], [place], [place], [place]) Address [address] [place] [address] Care Team Providers Care Inspector Salvage Name Role Phone Krystyna Elliott [facility] Primary Care Provider Nick Rasmussen PA-C Unavailable Lena Aguilera APRN Primary Care Provider [phone] Nimisha Nuñez PA-C Unavailable [phone] Encounter Details Date Type Department Care Team (Late st Contact Info) Description 12/17/2019 Transcribed Document [facility] [address] [place] [address] Provider, Audra Hargrove MD Social [...] Conversion Note - [facility] Beena ProviderMD - 12/17/2019 10:36 AM EDT [facility] Main OR PACU Summary Primary Physician: DRAGAN FLAHERTY MD-ORT Finalized Date/Time: 12/17/19 10:50:47 Pt. Name: ANISA KATZISE /Sex: 1965 Female Med Rec #: [id number] Physician: DRAGAN FLAHERTY MD-ORT Financial #: [id number] Pt. Type: O Room/Bed: [facility]/4 Admit/Disch: 12/17/19 04:47:00 - [place] [facility] Case Times Entry 1 In PACU I 12/17/19 10:00:00 Ready for PACU 12/17/19 10:40:00 Discharge Discharge from PACU 12/17/19 10:40:00 I Last Modified By: Lena Méndez RN 12/17/19 10:50:36 Finalized By: eLna Méndez, RN Document Signatures Signed By: Lena Méndez RN 12/17/19 10:50 documented in this encounter Plan of Treatment Upcoming Encounters Date Type Department Care Team (Late st Contact Info) Description 05/20/2025 8:30 AM EST Office Visit [facility] Orthopedics - [facility] [address] [place] [address] Nick Rasmussen PA-C [address] [place] [address] 08/19/2025 9:30 AM EST Appointment [facility] [address] [address] documented as of this encounter Visit Diagnoses Not on filedocumented in this encounter Care Teams Inspector Salvage Relationship Specialty Start Date End Date [place] [facility] [address] [address] PCP - General 09/19/22 10/27/23 Lena Aguilera APRN [address] [place] [address] [place] [address] PCP - General Family Medicine 10/28/23 Nick Rasmussen PA-C [address] [place] [address] Orthopedic Surgery 08/07/23 Nimisha Nuñez PA-C [address] [place] [address] Physician Computer Engineering Technologist Orthopedic Surgery 02/05/24 documented as of this encounter
--- OUTSIDE RECORDS SUMMARY | 2025-03-04 07:22 | XMS_ITS | Clinical Summary ---
[facility] Address [address] [place] [address] Care Team Providers Care Marketing Compliance Manager Name Role Phone Provider, No Known Primary [...] EDT - 12/11/2024 5:42 PM EDT Emergency [facility] EMERGENCY DEPARTMENT [address] [place] [address] Abhilash Gonzalez, DO Atypical chest pain (Primary [...] VACCINE (1 of 2) 10/23/2013 COVID-19 Vaccine (1 - 2023-2 5 season) 2025 INFLUENZA VACCINE 03/31/2025 MAMMOGRAM 09/10/2026 09/10/2024, 0308/2024, [...] Troponin T 1Hr (12/11/2024 3:23 PM EDT) [facility] HS Troponin T 7 <14 ng/L 12/11/2024 3:48 PM EDT [facility] Troponin T Numeric Delta -2 Abnormal if >/=3 ng/L 12/11/2024 3:48 PM EDT [facility] Blood Line / Unknown 12/11/2024 3: 23 PM EDT 12/11/2024 3:26 PM EDT Narrative [facility] - 12/11/2024 3:48 PM EDT [...] Gonzalez DO LAB BLOOD ORDERABLES Final Result [facility]
[address] [place] [address], * ECG 12 Lead Chest Pain (12/11/2024 3:20 PM EDT) Only the most recent of2 resultswithin the time period is included. Pathologist [facility] QT Interval 428 ms ECG QTC Interval 437 ms ECG 12/11/2024 3:20 PM EDT 12/20/2024 6:01 PM EDT [facility] ECG - 12/20/2024 6:01 PM EDT Test [...] change was found Confirmed by Abhilash Gonzalez ([id number]) on 12/20/2024 6:01:12 PM Referred By: Confirmed [...] change was found Confirmed by Abhilash Gonzalez ([id number]) on 12/20/2024 6:01:12 PM Referred By: Confirmed [...] DO 12/11/2024 3:27 PM EDT Workstation ID: [id number] Narrative 12/11/2024 3:[address] ANGIOGRAM [...] DO 12/11/2024 3:27 PM EDT Workstation ID: [id number] Esteban Pantoja PA-C IMG CT ORDERABLES Final Resu lt * XR Chest 1 View (12/11/2024 2:38 PM EDT) Anatomical Region Laterality Modality Body N/A Radiographic Loretta ging 12/11/2024 3:17 PM EDT Impressions 12/11/2024 3:17 PM EDT Impression: No active disease. Electronically Signed: Seth Spivey MD 12/11/2024 3:17 PM EDT Workstation ID: [id number] Narrative 12/11/2024 3:17 PM EDT XR CHEST [...] MD 12/11/2024 3:17 PM EDT Workstation ID: [id number] Abhilash Gonzalez DO IMG DIAGNOSTIC IMAGING ORDE RABLES Final Result * Veras Top (12/11/2024 2:15 PM EDT) Extra Tube Hold for add-ons. 12/11/2024 2:31 PM EDT [facility] Comment:Auto resulted. Blood Venipuncture / Unknown 12/11/2024 2:15 PM EDT 12/11/2024 2:18 PM EDT Abhilash Stewardjordan DO LAB BLOOD ORDER ONLY Final Result [facility]
[address] [facility] [address] [place] [address], [place] * Gold Top - SST (12/11/2024 2:15 PM EDT) Extra Tube Hold for add-ons. 12/11/2024 2:31 PM EDT [facility] Comment:Auto resulted. Blood Venipuncture / Unknown 12/11/2024 2:15 PM EDT 12/11/2024 2:18 PM EDT Abhilash Stewardjordan DO LAB BLOOD ORDER ONLY Final Result Performing Organization Address City/[facility]/ZIP Co de Phone Number [facility]
[address] [place] [address], [place] * Green Top (Gel) (12/11/2024 2:15 PM EDT) Extra Tube Hold for add-ons. 12/11/2024 2:31 PM EDT [facility] Comment:Auto resulted. Blood Venipuncture / Unknown 12/11/2024 2:15 PM EDT 12/11/2024 2:18 PM EDT Abhilash Stewardseemablossom DO LAB BLOOD ORDER ONLY Final Result [facility]
[address] [facility] [address] [place] [address], [place] * (ABNORMAL) CBC Auto Differential (12/11/2024 2:15 PM EDT) WBC 6.22 3.40 - 10.80 10*3/mm3 12/11/2024 2:21 PM EDT [facility] RBC 4.80 3.77 - 5.28 10*6/mm3 12/11/2024 2:21 PM [facility] Hemoglobin 13.4 12.0 - 15.9 g/dL 12/11/2024 2:21 PM [facility] Hematocrit 39.7 34.0 - 46.6 % 12/11/2024 2:21 PM [facility] MCV 82.7 79.0 - 97.0 fL 12/11/2024 2:21 PM [facility] MCH 27.9 26.6 - 33.0 pg 12/11/2024 2:21 PM [facility] MCHC 33.8 31.5 - 35.7 g/dL 12/11/2024 2:21 PM [facility] RDW 12.5 12.3 - 15.4 % 12/11/2024 2:21 PM [facility] RDW-SD 38.1 37.0 - 54.0 fl 12/11/2024 2:21 PM [facility] MPV 9.8 6.0 - 12.0 fL 12/11/2024 2:21 PM [facility] Platelets 206 140 - 450 10*3/mm3 12/11/2024 2:21 PM [facility] Neutrophil % 66.8 42.7 - 76.0 % 12/11/2024 2:21 PM [facility] Lymphocyte % 24.8 19.6 - 45.3 % 12/11/2024 2:21 PM [facility] Monocyte % 4.7(L) 5.0 - 12.0 % 12/11/2024 2:21 PM [facility] Eosinophil % 2.9 0.3 - 6.2 % 12/11/2024 2:21 PM [facility] Basophil % 0.6 0.0 - 1.5 % 12/11/2024 2:21 PM [facility] Immature Grans % 0.2 0.0 - 0.5 % 12/11/2024 2:21 PM [facility] Neutrophils, Absolute 4.16 1.70 - 7.00 10*3/mm3 12/11/2024 2:21 PM EDT [facility] Lymphocytes, Absolute 1.54 0.70 - 3.10 10*3/mm3 12/11/2024 2:21 PM EDT [facility] Monocytes, Absolute 0.29 0.10 - 0.90 10*3/mm3 12/11/2024 2:21 PM EDT [facility] Eosinophils, Absolute 0.18 0.00 - 0.40 10*3/mm3 12/11/2024 2:21 PM EDT [facility] Basophils, Absolute 0.04 0.00 - 0.20 10*3/mm3 12/11/2024 2:21 PM EDT [facility] Immature Grans, Absolute 0.01 0.00 - 0.05 10*3/mm3 12/11/2024 2:21 PM EDT [facility] Blood Venipuncture / Unknown 12/11/2024 2:15 PM EDT 12/11/2024 2:18 PM EDT Abhilash Gonzalez DO LAB BLOOD ORDERABLES Final Result [facility]
[address] [place] [address], [place] * Lavender Top (12/11/2024 2:15 PM EDT) Extra Tube hold for add-on 12/11/2024 2:31 PM EDT [facility] Comment:Auto resulted Blood Venipuncture / Unknown 12/11/2024 2:15 PM EDT 12/11/2024 2:18 PM EDT Abhilash Gonzalez DO LAB BLOOD ORDER ONLY Final Result [facility]
[address] [facility] [place] [address], [place] * Light Blue Top (12/11/2024 2:15 PM EDT) Extra Tube Hold for add-ons. 12/11/2024 2:31 PM EDT [facility] Comment:Auto resulted Blood Venipuncture / Unknown 12/11/2024 2:15 PM EDT 12/11/2024 2:18 PM EDT Abhilash Gonzalez DO LAB BLOOD ORDER ONLY Final Result [facility]
[address] [place] [address], * High Sensitivity Troponin T (12/11/2024 2:15 PM EDT) [facility] HS Troponin T 9 <14 ng/L 12/11/2024 2:35 PM EDT [facility] Blood Venipuncture / Unknown 12/11/2024 2:15 PM EDT 12/11/2024 2:18 PM EDT Abhilash Gonzalez DO LAB BLOOD ORDERABLES Final Result [facility]
[address] [place] [address], * BNP (12/11/2024 2:15 PM EDT) Pathologist [facility] proBNP 136.0 0.0 - 900.0 pg/mL 12/11/2024 2:36 PM EDT [facility] Blood Venipuncture / Unknown 12/11/2024 2:15 PM EDT 12/11/2024 2:18 PM EDT Narrative [facility] - 12/11/2024 2:36 PM EDT [...] BLOOD ORDERABLES Final Result Performing Organization Address City/[facility]/ZIP Co de Phone Number [facility]
[address] [place] [address], * Lipase (12/11/2024 2:15 PM EDT) Pathologist [facility] Lipase 33 13 - 60 U/L 12/11/2024 2:38 PM EDT [facility] Blood Venipuncture / Unknown 12/11/2024 2:15 PM EDT 12/11/2024 2:18 PM EDT Abhilash Gonzalez LAB BLOOD ORDERABLES Final Result Performing Organization Address [facility]/ZIP Co de Phone Number [facility]
[address] [place] [address], * (ABNORMAL) Comprehensive Metabolic Panel (12/11/2024 2:15 PM EDT) Glucose 104(H) 65 - 99 mg/dL 12/11/2024 2:39 PM EDT [facility] BUN 25.6(H) 8.0 - 23.0 mg/dL 12/11/2024 2:39 PM EDT [facility] Creatinine 1.21(H) 0.57 - 1.00 mg/dL 12/11/2024 2:39 PM EDT [facility] Sodium 143 136 - 145 mmol/L 12/11/2024 2:39 PM EDT [facility] Potassium 3.8 3.5 - 5.2 mmol/L 12/11/2024 2:39 PM EDT [facility] Chloride 105 98 - 107 mmol/L 12/11/2024 2:39 PM EDT [facility] CO2 19.9(L) 22.0 - 29.0 mmol/L 12/11/2024 2:39 PM EDT [facility] Calcium 10.6(H) 8.6 - 10.5 mg/dL 12/11/2024 2:39 PM T [facility] Total Protein 7.3 6.0 - 8.5 g/dL 12/11/2024 2:39 PM EDT [facility] Albumin 4.4 3.5 - 5.2 g/dL 12/11/2024 2:39 PM EDT [facility] ALT (SGPT) 27 1 - 33 U/L 12/11/2024 2:39 PM T [facility] AST (SGOT) 24 1 - 32 U/L 12/11/2024 2:39 PM T [facility] Alkaline Phosphatase 92 39 - 117 U/L 12/11/2024 2:39 PM [facility] Total Bilirubin 0.3 0.0 - 1.2 mg/dL 12/11/2024 2:39 PM [facility] Globulin 2.9 gm/dL 12/11/2024 2:39 PM [facility] A/G Ratio 1.5 g/dL 12/11/2024 2:39 PM [facility] BUN/Creatinine Ratio 21.2 7.0 - 25.0 12/11/2024 2:39 PM [facility] Anion Gap 18.1(H) 5.0 - 15.0 mmol/L 12/11/2024 2:39 PM [facility] eGFR 51.1(L) >60.0 mL/min/1.7 3 12/11/2024 2:39 PM [facility] Blood Venipuncture / Unknown 12/11/2024 2:15 PM EDT 12/11/2024 2:18 PM EDT [facility] - 12/11/2024 2:39 PM [...] Gonzalez DO LAB BLOOD ORDERABLES Final Result [facility]
[address] [place] [address], from Last 3 Months Insurance Care Teams Marketing Compliance Manager Relationship Specialty Start Date End Date Provider, [place] [address] PCP - General 12/11/24
--- OUTSIDE RECORDS SUMMARY | 2025-03-04 07:22 | XMS_ITS | Encounter Summary ---
Author Organization [employer] ([place], [place], [place], [place]) Address [address] [place] [address] Care Team Providers Care Customer Contact Specialist Name Role Phone Krystyna Elliott [facility] Primary Care Provider Nick Rasmussen PA-C Unavailable [phone] Lena Aguilera APRN Primary Care Provider [phone] Nimisha Nuñez PA-C Unavailable [phone] Encounter Details Date Type Department Care Team (Late st Contact Info) Description 12/17/2019 Transcribed Document [address] [address] Provider, Audra Hargrove MD Social History Tobacco Use Types Packs/Day Years Used Date Smoking Tobacco: Never Assessed Comments Unknown Sex and Gender Information Value Date Recorded Sex Assigned at Not on file Legal Sex Female 6:57 PM CDT Gender Identity Not on file Sexual Orientation Not on file documented as of this encounter Miscellaneous Notes * Cerner Conversion Note - [facility] Beena ProviderMD - 12/17/2019 10:36 AM EDT [facility] Main OR PreOp Summary Primary Physician: DRAGAN FLAHERTY MD-ORT Finalized Date/Time: 12/17/19 10:46:48 Pt. Name: ANISA KATZISE /Sex: 1965 Female Med Rec #: [id number] Physician: DRAGAN FLAHERTY MD-ORT Financial #: [id number] Pt. Type: O Room/Bed: [facility]/4 Admit/Disch: 12/17/19 04:47:00 - Institution: [facility] PreOp Case Times Entry 1 In Preop 12/17/19 06:50:00 Ready for Holding n/a Room Patient Ready for 12/17/19 08:36:00 Surgery Patient Out of Preop 12/17/19 09:30:00 Patient Out of n/a Holding Room Last Modified By: ELIGIO SCALES 12/17/19 10:46:47 [facility] PreOp Case Times Audit 12/17/19 10:46:47 Reconditioner: [email or web address] Modifier: [email or web address] <+> 1 Patient Out of Preop 12/17/19 08:36:21 Reconditioner: [email or web address] Modifier: [email or web address] <+> 1 Patient Ready for Surgery Finalized By: ELIGIO SCALES Document Signatures Signed By: ELIGIO SCALES 12/17/19 10:46 [address] Ranjan [facility] Conversion Field Operations Manager Cerner at 11/21/2022 11:15 AM CDT documented in this encounter Plan of Treatment Upcoming Encounters Date Type Department Care Team (Late st Contact Info) Description 05/20/2025 8:30 AM EST Office Visit [facility] Orthopedics - [address] [place] [address] Nick Rasmussen PA-C [address] [place] [address] 08/19/2025 9:30 AM EST Appointment Psychiatric [facility] [address] [facility] [address] [place] [address] documented as of this encounter Visit Diagnoses Not on filedocumented in this encounter Care Teams Customer Contact Specialist Relationship Specialty Start Date End Date Krystyna Elliott [facility] At [address] [address] PCP - General 09/19/22 10/27/23 Lena Aguilera, KALIN [address] [place] [place] [address] PCP - General Family Medicine 10/28/23 Nick Rasmussen PA-C [address] [place], [place] [address] Orthopedic Surgery 08/07/23 Nimisha Nuñez PA-C [address] [place], [place] [id number] Physician Shoemaking Finisher Orthopedic Surgery 02/05/24 documented as of this encounter
--- OUTSIDE RECORDS SUMMARY | 2025-03-04 07:22 | XMS_ITS | Encounter Summary ---
Author Organization [employer] ([place], [place], [place], [place]) Address [address] [place] [address] Care Team Providers Care Angiography Technologist Name Role Phone Krystyna Elliott [facility] Primary Care Provider Nick Rasmussen PA-C Unavailable [phone] Lena Aguilera APRN Primary Care Provider [phone] Nimisha Nuñez PA-C Unavailable [phone] Encounter Details Date Type Department Care Team (Late st Contact Info) Description 12/17/2019 Transcribed Document [address] [address] Provider, Audra Hargrove MD Social [...] Note - [facility] Beena Ogden MD - 12/17/2019 11:28 [...] and water are not available, use hand literary agent. ? Change your dressing as told by [...] medicines you take. General instructions ??? Take lwtw-ysl-rynxvpo and prescription medicines only as told by [...] fried or sweet foods. ? Take an xtyn-tat-oiagomg or prescription medicines for constipation. ??? Do [...] 01/04/2006 Document Revised: 04/30/2018 Document Reviewed: 04/30/2018 [employer] Patient Education ? 2019 [place]. documented in this encounter Plan of Treatment Upcoming Encounters Date Type Department Care Team (Late st Contact Info) Description 05/20/2025 8:30 AM EST Office Visit [facility] Orthopedics - [address] [place] [address] Nick Rasmussen PA-C [address] [place], [place] [id number] 08/19/2025 9:30 AM EST Appointment [facility] [address] [facility] [address] [place] [address] documented as of this encounter Visit Diagnoses Not on filedocumented in this encounter Care Teams Angiography Technologist Relationship Specialty Start Date End Date Dona Anakiara [facility] [place] [address] PCP - General 09/19/22 10/27/23 Lena Aguilera, PAPER AND PULP MILL WORKER [address] [place] [address] PCP - General Family Medicine 10/28/23 Nick Rasmussen PA-C [address] [place] [address] Orthopedic Surgery 08/07/23 Nimisha Nuñez PA-C [address] [place] [address] Physician Automatic Quilling Machine Operator Orthopedic Surgery 02/05/24 documented as of this encounter
--- OUTSIDE RECORDS SUMMARY | 2025-03-04 07:22 | XMS_ITS | Encounter Summary ---
Author Organization [employer] ([place], [place], [place], [place]) Address [address] [place] [address] Care Team Providers Care Television Maintenance Worker Name Role Phone Krystyna Elliott [facility] Primary Care Provider Nick Rasmussen PA-C Unavailable [phone] Lena Aguilera APRN Primary Care Provider [phone] Nimisha Nuñez PA-C Unavailable [phone] Encounter Details Date Type Department Care Team (Late st Contact Info) Description 12/17/2019 Transcribed Document [facility] 1 [place] [address] Provider, Audra Hargrove MD Social [...] - [facility] Beena ProviderMD - 12/17/2019 10:36 AM EDT CAROLYN Main OR IntraOp Summary Primary Physician: DRAGAN FLAHERTY MD-ORT Finalized Date/Time: 12/17/19 11:02:35 Pt. Name: ANISA KATZISE /Sex: 1965 Female Med Rec #: [id number] Physician: DRAGAN FLAHERTY MD-ORT Financial #: [id number] Pt. Type: O Room/Bed: [facility]/4 Admit/Disch: 12/17/19 04:47:00 - Institution: [facility] IntraOp Case Attendance Entry 1 Entry 2 Entry 3 Case Attendee DRAGAN FLAHERTY WICKER, KAREN KIM, ASSISTANT OPERATIONS MANAGER Esteban Abbasi RN MD-ORT Role Performed Surgeon/Proceduralist, ASSISTANT OPERATIONS MANAGER/Nurse Grand Jury Deputy Sheriff Insurance Agency Sales Manager, First First Time In 12/17/19 09:22:00 12/17/19 [...] Kian Ornelas, Scrub Assist Tech Role Performed Insurance Agency Sales Manager, Second Hat Sizer, First Scrub, Second Time In 12/17/19 09:22:00 [...] [facility] IntraOp Case Attendance Audit 12/17/19 10:06:09 Development Director: [id number] Modifier: [id number] 1 <*> Procedure Knee Arthroscopy 2 <*> Procedure Knee Arthroscopy 3 <*> Procedure Knee Arthroscopy 4 <*> Procedure Knee Arthroscopy 5 <*> Procedure Knee Arthroscopy 6 <*> Procedure Knee Arthroscopy 7 <*> Procedure Knee Arthroscopy 8 <*> Procedure Knee Arthroscopy 12/17/19 10:05:50 Development Director: [id number] Modifier: [id number] 1 <+> Time Out 1 <*> Procedure [...] 8 <*> Procedure Knee Arthroscopy 12/17/19 09:38:00 Development Director: [id number] Modifier: [id number] 1 <*> Procedure Knee Arthroscopy 2 <*> [...] 8 <*> Procedure Knee Arthroscopy 12/17/19 09:37:09 Development Director: [id number] Modifier: [id number] 1 <+> Time In 1 <*> Procedure [...] [facility] IntraOp Case Times Audit 12/17/19 10:04:48 Development Director: [id number] Modifier: [id number] <+> 1 Out Room Time <+> 1 Stop Time <+> 1 Stop Time 12/17/19 09:37:54 Development Director: [id number] Modifier: [id number] <+> 1 Start Time [facility] IntraOp Communication [...] [facility] IntraOp Counts Verification Audit 12/17/19 10:06:10 Development Director: [id number] Modifier: [id number] 1 <*> Procedure Knee Arthroscopy, Knee Arthroscopy 12/17/19 10:05:53 Development Director: [id number] Modifier: [id number] 1 <*> Procedure Knee Arthroscopy S[facility] IntraOp [...] [facility] IntraOp Counts Final Audit 12/17/19 10:06:11 Development Director: [id number] Modifier: [id number] 1 <*> Procedure Knee Arthroscopy, Knee Arthroscopy 12/17/19 10:05:55 Development Director: [id number] Modifier: [id number] 1 <*> Procedure Knee Arthroscopy S[facility] IntraOp [...] RN 12/17/19 09:44:01 S[facility] IntraOp General Case Martial Arts Instructor 1 Case Information OR OR 10 SJE [...] 0.5% 30ml vial Xylocaine 0.5% w/ - [id number] epinephrine 1:200,000 50ml vial - [id number] Combo Med List 1 - Combo Med [...] Comments: ZOYA LEG OSBORN ON RIGHT LEG; [employer] LEG OSBORN ON LEFT SIDE S[facility] IntraOp Patient Positioning Audit 12/17/19 10:06:11 Development Director: [id number] Modifier: [id number] 1 <*> Procedure Knee Arthroscopy, Knee Arthroscopy 12/17/19 10:05:54 Development Director: [id number] Modifier: [id number] 1 <*> Procedure 1 <*> Procedure Knee [...] [facility] IntraOp Sign In Audit 12/17/19 09:52:16 Development Director: [id number] Modifier: [id number] <+> 1 Medication Checks Completed <+> 1 [...] Reviewed with Anesthesia Provider, Surgeon and RN Altham Patient Yes Management Concerns Reviewed with Anesthesia [...] [facility] IntraOp Skin Prep Audit 12/17/19 10:06:11 Development Director: [id number] Modifier: [id number] 1 <*> Procedure Knee Arthroscopy, Knee Arthroscopy 12/17/19 10:05:55 Development Director: [id number] Modifier: [id number] 1 <*> Procedure Knee Arthroscopy SJE IntraOp [...] SJE IntraOp Surgical Procedures Audit 12/17/19 10:06:46 Development Director: [id number] Modifier: [id number] 1 <*> Procedure Knee Arthroscopy 1 <*> Primary Procedure Yes 1 <*> Primary Surgeon DARGAN FLAHERTY MD-ORT 1 <*> Specialty 1 <*> [...] Padded Under Cuff Applied By Mary Valencia, Ob Gyn Removed By Mary Valencia, Ob Gyn Times Start Time 12/17/19 09:36:00 Stop Time 12/17/19 09:54:00 Last Modified By: Esteban Abbasi RN 12/17/19 10:08:40 Case Comments <None> Finalized By: Flor Tapia RN Document Signatures Signed By: Esteban Abbasi RN 12/17/19 10:09 Flor Tapia RN 12/17/19 11:02 Unfinalized History Date/Time Username Reason for Unfinalizing Freetext Reason for Unfinalizing 12/17/19 10:51 [id number] Correct Documentation documented in this encounter Plan of Treatment Upcoming Encounters Date Type Department Care Team (Late st Contact Info) Description 05/20/2025 8:30 AM EST Office Visit [facility] Orthopedics - [address] [place] [address] Nick Rasmussen PA-C [address] [place] [address] 08/19/2025 9:30 AM EST Appointment [facility] [address] [place] [address] documented as of this encounter Visit Diagnoses Not on filedocumented in this encounter Care Teams Television Maintenance Worker Relationship Specialty Start Date End Date [facility] [address] [address] PCP - General 09/19/22 10/27/23 Lena Aguilera, OPEN HEARTH DOOR LINER [address] [place] [address] PCP - General Family Medicine 10/28/23 Nick Rasmussen PA-C [address] [place] [address] Orthopedic Surgery 08/07/23 Nimisha Nuñez PA-C [address] [place] [address] Physician Hat Sizer Orthopedic Surgery 02/05/24 documented as of this encounter
--- OUTSIDE RECORDS SUMMARY | 2025-03-04 07:22 | XMS_ITS | Clinical Summary ---
Author Organization [employer] ([place], [place], [place], [place]) Address [address] [place] [address] Care Team Providers Care Civil Transportation Engineer Name Role Phone Nick Rasmussen PA-C Unavailable [phone] Lena Aguilera APRN Primary Care Provider [phone] Nimisha Nuñez PA-C Unavailable [phone] Allergies Active Allergy Reactions Criticality Noted [...] Description 02/11/2025 10:00 AM EDT Office Visit [facility] Orthopedics - [address] [place] [address] Nick Rasmussen PA-C Primary osteoarthritis of left knee (Primary Dx); Primary osteoarthritis of right knee 12/23/2024 2:15 PM EDT Office Visit [facility] Orthopedics - [address] [place] [address] Nick Rasmussen PA-C Left carpal tunnel syndrome (Primary Dx) 12/18/2024 9:00 AM EDT Procedure Visit [facility] Neurology [facility] [address] [place] [address] Nick Rasmussen PA-C Everman, Nicole A, MD Numbness and tingling of both upper extremities 12/18/2024 Orders Only [facility] [address] [place] [address] Provider, MD Beena 12/18/2024 Travel 12/05/2024 10:57 AM EDT - 12/05/2024 2:53 PM EDT Emergency [facility] Emergency Department [address] [place] [address] Mayank Patrick MD Acute cystitis [...] Date Vijay rded Speak language other than Emirati at home Not on file 07/19/2023 Want [...] Description 05/20/2025 8:30 AM EST Office Visit [facility] Orthopedics - [address] [place] [address] Nick Rasmussen PA-C [address] [place] [address] 08/19/2025 9:30 AM EST Appointment [facility] [address] [facility] [address] [place] [address] Health Maintenance Due Date Last [...] - 58.8 pg/mL 12/05/2024 1:45 PM EDT [facility] Comment: Troponin Result (pg/mL) *Interpretation 3-58.8 [...] NP LAB BLOOD ORDERABLES Final Res ult [facility] [address] [phone] * (ABNORMAL) Urinalysis, Reflex Microscopic and Culture If Indicated (12/05/2024 12:45 PM EDT) Color, UA Yellow 12/05/2024 2:20 PM EDT [facility] Clarity, UA Turbid(A) Clear 12/05/2024 2:20 PM EDT [facility] Specific [place], UA 1.024 1.005 - 1.030 12/05/2024 2:20 PM EDT [facility] pH, UA 7.0 6.0 - 8.0 12/05/2024 2:20 PM EDT [facility] Leukocytes, UA 500 Evangelist/uL(A) Negative 12/05/2024 2:20 PM EDT [facility] Nitrite, UA Negative Negative 12/05/2024 2:20 PM EDT [facility] Protein, UA Trace(A) Negative 12/05/2024 2:20 PM EDT [facility] Glucose, UA Normal Normal 12/05/2024 2:20 PM EDT [facility] Ketones, UA Negative Negative 12/05/2024 2:20 PM EDT [facility] Bilirubin, UA Negative Negative 12/05/2024 2:20 PM EDT [facility] Blood, UA Negative Negative 12/05/2024 2:20 PM EDT [facility] Urobilinogen, UA Normal Normal 12/05/2024 2:20 PM EDT [facility] Specimen Source Urine, Clean Catch 12/05/2024 2:20 PM EDT [facility] Urine URINE SPECIMEN COLLECTION, CLEAN CATCH / Unknown 12/05/2024 12:45 PM EDT 12/05/2024 2:07 PM EDT Yamel Hurt NP URINE ORDERABLES Final Result [facility] [address] [place] [address] * (ABNORMAL) Urinalysis Microscopic Only (12/05/2024 12:45 PM EDT) WBC, UA 51-100(A) None Seen /HPF 12/05/2024 2:20 PM EDT [facility] RBC, UA 6-10(A) None Seen /HPF 12/05/2024 2:20 PM EDT [facility] Bacteria, UA 2+(A) Trace, None Seen 12/05/2024 2:20 PM EDT [facility] Mucus 1+(A) None Seen 12/05/2024 2:20 PM EDT [facility] SQUAMOUS EPITHELIAL 3-5(A) None Seen /HPF 12/05/2024 2:20 PM EDT [facility] TRANSITIONAL EPITHELIAL CELLS 0-2(A) None Seen /HPF 12/05/2024 2:20 PM EDT [facility] Non Squamous Epithelial Cells Present Absent 12/05/2024 2:20 PM EDT [facility] Urine URINE SPECIMEN COLLECTION, CLEAN CATCH / Unknown 12/05/2024 12:45 PM EDT 12/05/2024 2:07 PM EDT Yamel Hurt LAUNDRY EQUIPMENT OPERATOR URINE ORDERABLES Final Result Performing Organization Address [facility] Co de Phone Number [facility] [address] [place] [address], [facility] [phone] * Urine Culture (12/05/2024 12:45 PM EDT) Result Recollect Specimen - 3 or more organisms suggests contamination 12/07/2024 8:[address] [facility] Urine URINE SPECIMEN COLLECTION, CLEAN CATCH / Unknown 12/05/2024 12:45 PM EDT 12/05/2024 2:19 PM EDT Yamel Hurt NP MICROBIOLOGY - GENERAL ORDERAB LES Final Result Performing Organization Address [facility] Co de Phone Number [facility] [address] [phone] * XR chest 1 view portable / [...] 10.0 K/ L 12/05/2024 11:34 AM EDT [facility] RBC 4.85 3.93 - 6.08 M/ L 12/05/2024 11:34 AM EDT [facility] Hemoglobin 13.8 11.2 - 15.7 GM/DL 12/05/2024 11:34 AM EDT [facility] Hematocrit 41.5 34.1 - 44.9 % 12/05/2024 11:34 AM EDT [facility] MCV 86 79 - 95 fL 12/05/2024 11:34 AM EDT [facility] MCH 28.5 25.6 - 32.2 pg 12/05/2024 11:34 AM EDT [facility] MCHC 33.3 32.2 - 36.5 GM/DL 12/05/2024 11:34 AM EDT [facility] RDW 13.3 11.6 - 14.4 % 12/05/2024 11:34 AM EDT [facility] Platelets 195 163 - 369 K/CU MM 12/05/2024 11:34 AM EDT [facility] MPV 9.6 9.4 - 12.4 fL 12/05/2024 11:34 AM EDT [facility] % Neutros 70 34 - 71 % 12/05/2024 11:34 AM EDT [facility] % Lymphs 16(L) 19 - 53 % 12/05/2024 11:34 AM EDT [facility] % Monos 9 4 - 13 % 12/05/2024 11:34 AM EDT [facility] % Eos 5 1 - 7 % 12/05/2024 11:34 AM EDT [facility] % Baso 1 0 - 1 % 12/05/2024 11:34 AM EDT [facility] # Neutros 4.02 1.56 - 6.13 K/ L 12/05/2024 11:34 AM EDT [facility] # Lymphs 0.90(L) 1.18 - 3.74 K/ L 12/05/2024 11:34 AM EDT [facility] # Monos 0.52 0.24 - 0.82 K/ L 12/05/2024 11:34 AM EDT [facility] # Eos 0.27 0.04 - 0.54 K/ L 12/05/2024 11:34 AM EDT [facility] # Baso 0.05 0.01 - 0.08 K/ L 12/05/2024 11:34 AM EDT [facility] Immature Granulocytes-Re lative 0.30 0.00 - 0.60 % 12/05/2024 11:34 AM EDT [facility] # IG 0.02 0.00 - 0.05 K/uL 12/05/2024 11:34 AM EDT [facility] Blood Venipuncture / Unknown 12/05/2024 11:30 AM EDT 12/05/2024 11:30 AM EDT Narrative [facility] - 12/05/2024 11:34 AM EDT When [...] NP LAB BLOOD ORDERABLES Final Res ult [facility] [address] [phone] * aPTT (12/05/2024 11:30 AM EDT) [facility] aPTT 25.9 22.0 - 32.0 seconds 12/05/2024 11:48 AM EDT [facility] Blood Venipuncture / Unknown 12/05/2024 11:30 AM EDT 12/05/2024 11:30 AM EDT [facility] LAB BLOOD ORDERABLES Final Res ult Performing Organization Address [facility] Co de Phone Number [facility] [address] [phone] * Prothrombin time/INR (12/05/2024 11:30 AM EDT) Protime 10.4 9.0 - 12.0 seconds 12/05/2024 11:48 AM EDT [facility] INR 0.95 0.80 - 1.10 12/05/2024 11:48 AM EDT [facility] Comment: Recommended therapeutic ranges using International [...] ORDERABLES Final Res ult Performing Organization Address City/[facility] Co de Phone Number [facility] [address] [phone] * (ABNORMAL) Comprehensive metabolic panel (12/05/2024 11:30 AM EDT) Sodium 138 136 - 146 meq/L 12/05/2024 11:55 AM EDT [facility] Potassium 3.9 3.5 - 5.1 meq/L 12/05/2024 11:55 AM EDT [facility] Chloride 106 102 - 112 meq/L 12/05/2024 11:55 AM EDT [facility] CO2 26 21 - 32 meq/L 12/05/2024 11:55 AM [facility] Calcium 9.6 8.5 - 10.1 mg/dL 12/05/2024 11:55 AM [facility] Glucose 109(H) 74 - 106 mg/dL 12/05/2024 11:55 AM [facility] BUN 24(H) 7 - 22 mg/dL 12/05/2024 11:55 AM [facility] Creatinine 1.18(H) 0.55 - 1.02 mg/dL 12/05/2024 11:55 AM [facility] BUN/Creatinine 20 8 - 20 12/05/2024 11:55 AM [facility] Albumin 3.9 3.4 - 5.0 g/dL 12/05/2024 11:55 AM [facility] Alkaline Phosphatase 97 27 - 136 U/L 12/05/2024 11:55 AM [facility] ALT 32 12 - 78 U/L 12/05/2024 11:55 AM [facility] AST 24 5 - 37 U/L 12/05/2024 11:55 AM [facility] Total Bilirubin 0.5 0.2 - 1.3 mg/dL 12/05/2024 11:55 AM [facility] Protein, Total 7.6 6.4 - 8.2 gm/dL 12/05/2024 11:55 AM [facility] Anion Gap 10 9 - 20 12/05/2024 11:55 AM [facility] A/G Ratio 1.1 1.1 - 2.5 12/05/2024 11:55 AM [facility] Globulin 3.7 1.5 - 4.5 g/dL 12/05/2024 11:55 AM [facility] Osmolality Calc 280.3 mOsm/kg 11:55 AM [facility] eGFR (mL/min/1.73m2) 53(L) >=60 mL/min/1.7 3m2 12/05/2024 11:55 AM [facility] Comment:ESTIMATED GFR IS NOT ACCURATE CREATININE CLEARANCE IN PREDICTING GLOMERULAR FILTRATION RATE. ESTIMATED GFR IS NOT APPLICABLE FOR DIALYSIS PATIENTS. Blood Venipuncture / Unknown 12/05/2024 11:30 AM EDT 12/05/2024 11:30 AM EDT Yamel Hurt NP LAB BLOOD ORDERABLES Final Res ult Performing Organization Address City/[facility] Co de Phone Number [facility] [address] [phone] * ECG 12 lead (12/05/2024 11:03 AM EDT) SYSTOLIC BLOOD PRESSURE (MCT) 127 mmHg GE MUSE DIASTOLIC BLOOD PRESSURE (MCT) 77 mmHg GE MUSE VENTRICULAR RATE EKG/MIN 73 BPM GE MUSE ATRIAL RATE (MCT) 73 BPM GE MUSE DC Interval 142 ms GE MUSE QRS-INTERVAL (MSEC) 66 ms GE MUSE QT Interval 394 ms GE MUSE QTC Interval 434 ms GE MUSE P [place] 38 degrees GE MUSE R AXIS (MCT) 67 degrees GE MUSE T Wave [place] 55 degrees GE MUSE [place] Diagnosis Normal sinus rhythm Low voltage QRS Borderline ECG No previous ECGs available Confirmed by Bhumika URBANO SUZANNE ([id number]) on 12/09/2024 10:52:48 AM GE MUSE 12/05/2024 11:0 3 AM EDT 12/09/2024 10:52 AM EDT Yamel Hurt NP ECG ORDERABLES Final Result Performing Organization Address [facility] Co de Phone Number GE MUSE * [...] recommended imaging studies/procedures. At our facility, a bishop paiute marker is positioned over a visible skin [...] family history of breast cancer COMPARISON STUDY: [facility] 08/13/2024 FINDINGS: Craniocaudal and mediolateral [...] Most Recently Relevant to Health Maintenance Insurance [facility] Member Subscriber Plan / Payer (Ef fective 2023-Present) Name:Anisa Hernandes Relation to Subscriber:Self Name:Anisa Hernandes Payer ID:Not on file Type:Not on file Address: [facility] [id number] [place] [id number] Care Teams Civil Transportation Engineer Relationship Specialty Start Date End Date Lena Aguilera, FOREIGN STUDENT ADVISER [address] [place] [address] PCP - General Family Medicine 10/28/23 Nick Rasmussen PA-C [address] [place] [address] Orthopedic Surgery 08/07/23 Nimisha Nuñez PA-C [address] [place], [place] [address] Physician Derrick Builder Orthopedic Surgery 02/05/24
--- OUTSIDE RECORDS SUMMARY | 2025-03-04 07:22 | XMS_ITS | Encounter Summary ---
Author Organization [employer] ([place], [place], [place], [place]) Address [address] [place] [address] Care Team Providers Care Indoor Plant Technician Name Role Phone Krystyna Elliott [facility] Primary Care Provider Nick Rasmussen PA-C Unavailable Lena Aguilera APRN Primary Care Provider [phone] Nimisha Nuñez PA-C Unavailable [phone] Encounter Details Date Type Department Care Team (Late st Contact Info) Description 12/17/2019 Transcribed Document [facility] [address] [place] [address] Provider, Audra Hargrove MD Social [...] [facility] Beena ProviderMD - 12/17/2019 9:10 AM EDT Pre Procedure Adult Entered On: 12/17/2019 8:16 EDT Performed On: 12/17/2019 8:10 EDT by Paola Lacy RN Height and Weight, Clinical Dosing Height Source : Stated Height Entry Format : Sullivan Height, Feet : 5 ft(Converted to: 152 cm, 60 Inch) Height, Inches : 3 Inch(Converted to: 0 ft 3 Inch, 7.62 cm) Clinical Height : 160.02 cm Weight Source : Standing scale Weight Entry Format : Sullivan Clinical Dosing Weight : 101.36 kg Weight, Pounds : 223 lb Body Surface Area (BSA) : 2.03 m2 Body Mass Index : 39.6 kg/m2 (HI) [place] Body Weight : 52 kg Paola Lacy [...] Where was the COVID-19 Testing completed? : [facility] Where are the test results? [...] Paola Lacy RN - 12/17/2019 8:10 EDT Lewis Suicide Severity Rating Scale (C-SSRS) CSSRS Past [...] Obtained From : Patient Primary Language : Uzbek Preferred Communication Mode : Verbal Communication Barrier [...] Scale Risk Level : 25-45 Medium Risk [place] Fall Interventions : Adequate lighting, Bed in [...] rendition version of the form. Cosme Coma Cosme Best Motor Response : Obey commands Cosme Best Verbal Response : Oriented Cosme Eye Opening Response : Spontaneous Cosme Coma Score : 15 Paola Lacy RN - 12/17/2019 8:10 EDT documented in this encounter Plan of Treatment Upcoming Encounters Date Type Department Care Team (Late st Contact Info) Description 05/20/2025 8:30 AM EST Office Visit [facility] Orthopedics - [address] [place] [address] Nick Rasmussen PA-C [address] [place] [address] 08/19/2025 9:30 AM EST Appointment [facility] [address] [place] [address] documented as of this encounter Visit Diagnoses Not on filedocumented in this encounter Care Teams Indoor Plant Technician Relationship Specialty Start Date End Date [facility] [place] [address] PCP - General 09/19/22 10/27/23 Lena Aguilera APRN [address] [place] [address] PCP - General Family Medicine 10/28/23 Nick Rasmussen PA-C [address] [place] [address] Orthopedic Surgery 08/07/23 Nimisha Nuñez PA-C [address] [place], [place] [id number] Physician System Auditor Orthopedic Surgery 02/05/24 documented as of this encounter
--- OUTSIDE RECORDS SUMMARY | 2025-03-04 07:22 | XMS_ITS | Encounter Summary ---
Author Organization [employer] ([place], [place], [place], [place]) Address [address] [place] [address] Care Team Providers Care Direct Service Worker Name Role Phone Krystyna Elliott [facility] Primary Care Provider Nick Rasmussen PA-C Unavailable [phone] Lena Aguilera APRN Primary Care Provider [phone] Nimisha Nuñez PA-C Unavailable [phone] Encounter Details Date Type Department Care Team (Late st Contact Info) Description 12/17/2019 Transcribed Document [address] [address] Provider, Audra Hargrove MD Social [...] * Cerner Conversion Note - [facility] Beena ProviderMD - 12/17/2019 12:22 PM EDT [facility] [address] [place] [address] ANISA KATZISE :1965 Visit Time:12/17/2019 What to do next Your Diagnosis Unilateral primary osteoarthritis, right knee, Unilateral primary osteoarthritis, right knee Instructions From Your Care Team You have a prescription for [place] 7.5mg 1 tablet every 6 hours as needed for pain, your next dose is due after 4:30pm refer to discharge orders/orthopedic procedures form for detailed instructions. Follow-Up Appointments Follow Up with DRAGAN FLAHERTY MD-ORT When 12/30/2019 02:15 PM EDT Comments Appointment has been made Where: [address] [place] [address]- Medications What How Much When Instructions Next [...] and water are not available, use hand band machine operator. ? Change your dressing as [...] medicines you take. General instructions ??? Take eboz-gyt-anukhoz and prescription medicines only as told by [...] fried or sweet foods. ? Take an pvfr-obr-wlwqjtq or prescription medicines for constipation. ??? Do [...] 01/04/2006 Document Revised: 04/30/2018 Document Reviewed: 04/30/2018 Appolicious Interactive Patient Education ?? 2020 CanoP. acetaminophen and hydrocodone (a SEET a MIN oh fen and imer drokiara KOE done) Hycet, Lorcet, [place], Verdrocet, Vicodin, Xodol, Zamicet What is the [...] may report side effects to FDA at 8-445-EGS-3087. What other drugs will affect acetaminophen and [...] affect acetaminophen and hydrocodone, including prescription and dctk-qcs-abgnxkd medicines, vitamins, and herbal products. Not all [...] to ensure that the information provided by VendAsta. ('Multum') is accurate, up-to-date, and complete, but no guarantee is made to that effect. Drug information contained herein may be time sensitive. eshtery information has been compiled for use by healthcare practitioners and consumers in the [place] and therefore eshtery does not warrant that uses outside of the [place] are appropriate, unless specifically indicated otherwise. eshtery's drug information does not endorse drugs, diagnose patients or recommend therapy. Therma Flites drug information is an informational resource designed [...] effective or appropriate for any given patient. eshtery does not assume any responsibility for any aspect of healthcare administered with the aid of information eshtery provides. The information contained herein is not intended to cover all possible uses, directions, precautions, warnings, drug interactions, allergic reactions, or adverse effects. If you have questions about the drugs you are taking, check with your doctor, nurse or pharmacist. Copyright 1118-2500 VendAsta. Version: 16.. Revision Date: 07/22/2019. acetaminophen and hydrocodone (a SEET a MIN oh fen and imer droe KOE done) Hycet, Lorcet, [place], Verdrocet, Vicodin, Xodol, Zamicet What is the [...] may report side effects to FDA at 4-438-GCN-2726. What other drugs will affect acetaminophen and [...] affect acetaminophen and hydrocodone, including prescription and dxtk-rxm-hqiwweq medicines, vitamins, and herbal products. Not all [...] to ensure that the information provided by [employer]sta. ('Multum') is accurate, up-to-date, and complete, but no guarantee is made to that effect. Drug information contained herein may be time sensitive. eshtery information has been compiled for use by healthcare practitioners and consumers in the [place] and therefore eshtery does not warrant that uses outside of the [place] are appropriate, unless specifically indicated otherwise. Therma Flites drug information does not endorse drugs, diagnose patients or recommend therapy. [employer] Love [employer]ive drug information is an informational resource designed [...] effective or appropriate for any given patient. eshtery does not assume any responsibility for any aspect of healthcare administered with the aid of information eshtery provides. The information contained herein is not intended to cover all possible uses, directions, precautions, warnings, drug interactions, allergic reactions, or adverse effects. If you have questions about the drugs you are taking, check with your doctor, nurse or pharmacist. Copyright 5043-4834 VendAsta. Version: 16.01. Revision Date: 07/22/2019. Emergency Awareness [...] Assistance with quitting is available by contacting 6-455-BQMX-NOW. This is a free resource providing counseling, [...] range between ( 1.0 and 7.0 ) Hays #: 0.41 K/uL -- Normal range between ( 0.24 and 0.82 ) Eos #: 0.25 K/uL -- Normal range between ( 0.04 and 0.54 ) [place] %: 7.5 % -- Normal range between [...] was given the opportunity to ask questions. Patient/Pearl Cutter Name: Patient/Pearl Cutter Signature: Relationship to Patient: Clinician/Hospital Pearl Cutter Signature: Date: Electronically signed by Audra Woodruff Conversion Sole Rounding Machine Operator Cerner at 11/21/2022 11:16 AM CDT documented in this encounter Plan of Treatment Upcoming Encounters Date Type Department Care Team (Late st Contact Info) Description 05/20/2025 8:30 AM EST Office Visit [facility] Orthopedics - [address] [place] [address] Nick Rasmussen PA-C [address] [place] [address] 08/19/2025 9:30 AM EST Appointment [facility] [address] [facility] [address] [place] [address] documented as of this encounter Visit Diagnoses Not on filedocumented in this encounter Care Teams Direct Service Worker Relationship Specialty Start Date End Date [facility] [place] [address] PCP - General 09/19/22 10/27/23 Lena Aguilera APRN [address] [place] [address] PCP - General Family Medicine 10/28/23 Nick Rasmussen PA-C [address] [place] [address] Orthopedic Surgery 08/07/23 Nimisha Nuñez PA-C [address] [place] [address] Physician Verification Engineer Orthopedic Surgery 02/05/24 documented as of this encounter
--- OUTSIDE RECORDS SUMMARY | 2025-03-04 07:22 | XMS_ITS | Encounter Summary ---
Author Organization [employer] ([place], [place], [place], [place]) Address [address] [place] [address] Care Team Providers Care Construction Electrician Name Role Phone Krystyna Elliott [facility] Primary Care Provider Nick Rasmussen PA-C Unavailable [phone] Lena Aguilera APRN Primary Care Provider [phone] Nimisha Nuñez PA-C Unavailable [phone] Encounter Details Date Type Department Care Team (Late st Contact Info) Description 12/17/2019 Transcribed Document [address] [address] Provider, Audra Hargrove MD Social History Tobacco Use Types Packs/Day Years Used Date Smoking Tobacco: Never Assessed Comments Unknown Sex and Gender Information Value Date Recorded Sex Assigned at Not on file Legal Sex Female 6:57 PM CDT Gender Identity Not on file Sexual Orientation Not on file documented as of this encounter Miscellaneous Notes * Cerner Conversion Note - [facility] Beena ProviderMD - 12/17/2019 12:37 PM EDT [facility] [address] [place] [address] ANISA KATZISE :1965 Visit Time:12/17/2019 What to do next Your Diagnosis Unilateral primary osteoarthritis, right knee, Unilateral primary osteoarthritis, right knee Instructions From Your Care Team You have a prescription for [place] 7.5mg 1 tablet every 6 hours as needed for pain, your next dose is due after 4:30pm refer to discharge orders/orthopedic procedures form for detailed instructions. Follow-Up Appointments Follow Up with DRAGAN FLAHERTY MD-ORT When 12/30/2019 02:15 PM EDT Comments Appointment has been made Where: [place] [address]- Medications What How Much When Instructions Next [...] and water are not available, use hand pilling machine operator. ? Change your dressing as [...] medicines you take. General instructions ??? Take wzed-tok-kcpmqrg and prescription medicines only as told by [...] fried or sweet foods. ? Take an kybc-fxk-xizdeox or prescription medicines for constipation. ??? Do [...] 01/04/2006 Document Revised: 04/30/2018 Document Reviewed: 04/30/2018 RSP Tooling Interactive Patient Education ?? 2020 Hype Innovation. acetaminophen and hydrocodone (a SEET a MIN oh fen and imer drokiara KOE done) Hycet, Lorcet, [place], Verdrocet, Vicodin, Xodol, Zamicet What is the [...] may report side effects to FDA at 8-155-DTT-7434. What other drugs will affect acetaminophen and [...] affect acetaminophen and hydrocodone, including prescription and bipy-ngz-ylkzqvh medicines, vitamins, and herbal products. Not all [...] to ensure that the information provided by [employer]. ('Multum') is accurate, up-to-date, and complete, but no guarantee is made to that effect. Drug information contained herein may be time sensitive. Whiteout Networks information has been compiled for use by healthcare practitioners and consumers in the [place] and therefore Whiteout Networks does not warrant that uses outside of the [place] are appropriate, unless specifically indicated otherwise. Whiteout Networks's drug information does not endorse drugs, diagnose patients or recommend therapy. APImetricss drug information is an informational resource designed [...] effective or appropriate for any given patient. [employer] does not assume any responsibility for any aspect of healthcare administered with the aid of information Whiteout Networks provides. The information contained herein is not intended to cover all possible uses, directions, precautions, warnings, drug interactions, allergic reactions, or adverse effects. If you have questions about the drugs you are taking, check with your doctor, nurse or pharmacist. Copyright 6359-2770 [employer]. Version: 16.. Revision Date: 07/22/2019. acetaminophen and hydrocodone (a SEET a MIN oh fen and imer droe KOE done) Hycet, Lorcet, [place], Verdrocet, Vicodin, Xodol, Zamicet What is the [...] may report side effects to FDA at 6-244-AAD-7478. What other drugs will affect acetaminophen and [...] affect acetaminophen and hydrocodone, including prescription and gcxg-awp-jyhwsmc medicines, vitamins, and herbal products. Not all [...] to ensure that the information provided by [employer]. ('Multum') is accurate, up-to-date, and complete, but no guarantee is made to that effect. Drug information contained herein may be time sensitive. Whiteout Networks information has been compiled for use by healthcare practitioners and consumers in the [place] and therefore [employer] does not warrant that uses outside of the [place] are appropriate, unless specifically indicated otherwise. APImetricss drug information does not endorse drugs, diagnose patients or recommend therapy. Med[employer] Technologies drug information is an informational resource designed [...] effective or appropriate for any given patient. [employer] does not assume any responsibility for any aspect of healthcare administered with the aid of information Whiteout Networks provides. The information contained herein is not intended to cover all possible uses, directions, precautions, warnings, drug interactions, allergic reactions, or adverse effects. If you have questions about the drugs you are taking, check with your doctor, nurse or pharmacist. Copyright 1150-1368 [employer]. Version: 16.01. Revision Date: 07/22/2019. Emergency Awareness [...] Assistance with quitting is available by contacting 3-561-VRTN-NOW. This is a free resource providing counseling, [...] range between ( 1.0 and 7.0 ) Pershing #: 0.41 K/uL -- Normal range between ( 0.24 and 0.82 ) Eos #: 0.25 K/uL -- Normal range between ( 0.04 and 0.54 ) Pershing %: 7.5 % -- Normal range between [...] given the opportunity to ask questions. Patient/Manager Contracting Name: Patient/Manager Contracting Signature: Relationship to Patient: Clinician/Hospital Manager Contracting Signature: Date: documented in this encounter Plan of Treatment Upcoming Encounters Date Type Department Care Team (Late st Contact Info) Description 05/20/2025 8:30 AM EST Office Visit [facility] Orthopedics - [address] [place] [address] Nick Rasmussen PA-C [address] [place] [address] 08/19/2025 9:30 AM EST Appointment [facility] [address] [facility] [address] [place] [address] documented as of this encounter Visit Diagnoses Not on filedocumented in this encounter Care Teams Construction Electrician Relationship Specialty Start Date End Date [facility] [place] [address] PCP - General 09/19/22 10/27/23 Lena Aguilera APRN [address] [place] [address] PCP - General Family Medicine 10/28/23 Nick Rasmussen PA-C [address] [place] [address] Orthopedic Surgery 08/07/23 Nimisha Nuñez PA-C [address] [place] [address] Physician Chlorinator Orthopedic Surgery 02/05/24 documented as of this encounter
--- OUTSIDE RECORDS SUMMARY | 2025-03-04 07:22 | XMS_ITS | Encounter Summary ---
Author Organization [employer] ([place], [place], [place], [place]) Address [address] [place] [address] Care Team Providers Care Priming Machine Operator Name Role Phone Krystyna Elliott [facility] Primary Care Provider Nick Rasmussen PA-C Unavailable [phone] Lena Aguilera APRN Primary Care Provider [phone] Nimisha Nuñez PA-C Unavailable [phone] Encounter Details Date Type Department Care Team (Late st Contact Info) Description 12/03/2019 Transcribed Document [facility] Radiology [address] [place] [address] Provider, Audra Hargrove MD Social [...] Note - [facility] Beena ProviderMD - 12/03/2019 9:36 AM [...] Source : Stated Height Entry Format : Harold Height, Feet : 5 ft(Converted to: 152 cm, 60 Inch) Height, Inches : 3 Inch(Converted to: 0 ft 3 Inch, 7.62 cm) Clinical Height : 160.02 cm Weight Source : Standing scale Weight Entry Format : Harold Clinical Dosing Weight : 100.91 kg Weight, Pounds : 222 lb Body Surface Area (BSA) : 2.02 m2 Body Mass Index : 39.4 kg/m2 ([place]) [place] Body Weight : 52 kg ROSALINE MCKEON [...] ROSALINE MCKEON RN - 12/03/2019 8:36 EDT [place] Suicide Severity Rating Scale (C-SSRS) CSSRS Past [...] #2 Relationship : - Primary Language : Polish Communication Barrier : None ROSALINE MCKEON RN [...] Visit [facility] Orthopedics - [address] [place] [address] Nick Rasmussen PA-C [address] [place] [address] 08/19/2025 9:30 AM EST Appointment [facility] [address] [facility] [address] [place] [address] documented as of this encounter Visit Diagnoses Not on filedocumented in this encounter Care Teams Priming Machine Operator Relationship Specialty Start Date End Date Krystyna Elliott [facility] [place] [address] PCP - General 09/19/22 10/27/23 Lena Aguilera APRN [address] [place] [address] PCP - General Family Medicine 10/28/23 Nick Rasmussen PA-C [address] [email or web address] [address] Orthopedic Surgery 08/07/23 Nimisha Nuñez PA-C [address] [email or web address] [address] Physician Meat Smoker Orthopedic Surgery 02/05/24 documented as of this encounter
--- OUTSIDE RECORDS SUMMARY | 2025-03-04 07:22 | XMS_ITS | Encounter Summary ---
Author Organization [employer] ([place], [place], [place], [place]) Address [address] [place] [address] Care Team Providers Care Sawsmith Name Role Phone Krystyna Elliott [facility] Primary Care Provider Nick Rasmussen PA-C Unavailable [phone] Lena Aguilera APRN Primary Care Provider [phone] Nimisha Nuñez PA-C Unavailable [phone] Encounter Details Date Type Department Care Team (Late st Contact Info) Description 12/03/2019 Transcribed Document [facility] Radiology [address] [place] [address] Provider, Audra Hargrove MD Social [...] * Cerner Conversion Note - [facility] Beena ProviderMD - 12/03/2019 9:50 AM EDT Patient: ANISA KATZ Age: 54 Years Sex: Female : 1965 Chief Complaint Right Knee Pain Primary Care Provider NEYDA JOINER (REF), PATIENT CARRIER-FAM History of Present Illness This patient is [...] # 1.08 K/uL (Low) 12/03/2019 08:43 EDT [place] % 7.5 % 12/03/2019 08:43 EDT [place] # 0.41 K/uL 12/03/2019 08:43 EDT Eos [...] Description 05/20/2025 8:30 AM EST Office Visit [facility] Orthopedics - [address] [place] [address] Nick Rasmussen PA-C [address] [place] [address] 08/19/2025 9:30 AM EST [facility]ointment [facility] [address] [facility] [address] [place] [address] documented as of this encounter Visit Diagnoses Not on filedocumented in this encounter Care Teams Sawsmith Relationship Specialty Start Date End Date [facility] [address] [address] PCP - General 09/19/22 10/27/23 Lena Aguilera, OPERATOR CONTROL ROOM [address] [place] [address] PCP - General Family Medicine 10/28/23 Nick Rasmussen PA-C [address] [place] [address] Orthopedic Surgery 08/07/23 Nimisha Nuñez PA-C [address] [place] [address] Physician Dam Operator Orthopedic Surgery 02/05/24 documented as of this encounter
--- OUTSIDE RECORDS SUMMARY | 2025-03-04 07:22 | XMS_ITS | Encounter Summary ---
Author Organization [employer] ([place], [place], [place], [place]) Address [address] [place] [address] Care Team Providers Care Event Attendant Name Role Phone Krystyna Elliott [facility] Primary Care Provider Nick Rasmussen PA-C Unavailable [phone] Lena Aguilera APRN Primary Care Provider [phone] Nimisha Nuñez PA-C Unavailable [phone] Encounter Details Date Type Department Care Team (Late st Contact Info) Description 12/17/2019 Transcribed Document [facility] [address] [place] [address] Provider, Audra Hargrove MD Social History Tobacco Use Types Packs/Day Years Used Date Smoking Tobacco: Never Assessed Comments Unknown Sex and Gender Information Value Date Recorded Sex Assigned at Not on file Legal Sex Female 6:57 PM CDT Gender Identity Not on file Sexual Orientation Not on file documented as of this encounter Miscellaneous Notes * Cerner Conversion Note - [facility] Beena ProviderMD - 12/17/2019 10:36 AM EDT [facility] Main OR PostOp Summary Primary Physician: DRAGAN FLAHERTY MD-ORT Finalized Date/Time: 12/17/19 11:48:29 Pt. Name: ANISA KATZISE /Sex: 1965 Female Med Rec #: [id number] Physician: DRAGAN FLAHERTY MD-ORT Financial #: [id number] Pt. Type: O Room/Bed: [facility]/4 Admit/Disch: 12/17/19 04:47:00 - Institution: [facility] Main OR PostOp Case Times Entry 1 In PACU II 12/17/19 10:40:00 Ready for PACU II 12/17/19 11:48:00 Discharge Discharge from PACU 12/17/19 11:48:00 II Last Modified By: Erin Orta RN 12/17/19 11:48:22 [facility] Main OR PostOp Case Times Audit 12/17/19 11:48:22 Script Editor: SXPOWERS Modifier: HELFEP 1 <+> Ready for PACU II Discharge 1 <*> In PACU II 12/17/19 10:00:00 1 <+> Discharge from PACU II Finalized By: Erin Orta RN Document Signatures Signed By: Erin Orta RN 12/17/19 11:48 Electronically signed by Audra Woodrfuf Conversion Territory Service Representative Cerner at 11/21/2022 11:16 AM CDT documented in this encounter Plan of Treatment Upcoming Encounters Date Type Department Care Team (Late st Contact Info) Description 05/20/2025 8:30 AM EST Office Visit [facility] Orthopedics - [address] [place] [address] Nick Rasmussen PA-C [address] [place] [address] 08/19/2025 9:30 AM EST Appointment [facility] [address] [facility] [address] [place] [address] documented as of this encounter Visit Diagnoses Not on filedocumented in this encounter Care Teams Event Attendant Relationship Specialty Start Date End Date Krystyna Elliott [facility] At [address] [address] PCP - General 09/19/22 10/27/23 Lena Aguilera, KALIN [address] [place] [address] [place] [address] PCP - General Family Medicine 10/28/23 Nick Rasmussen PA-C [address] [place] [address] Orthopedic Surgery 08/07/23 Nimisha Nuñez PA-C [address] [place] [address] Physician Mergers And Acquisitions Associate Orthopedic Surgery 02/05/24 documented as of this encounter
--- OUTSIDE RECORDS SUMMARY | 2025-03-04 07:22 | XMS_ITS | Encounter Summary ---
Author Organization [employer] ([place], [place], [place], [place]) Address [address] [place] [address] Care Team Providers Care Field Training Agent Name Role Phone Krystyna Elliott [facility] Primary Care Provider Nick Rasmussen PA-C Unavailable [phone] Lena Aguilera APRN Primary Care Provider Nimisha Nuñez PA-C Unavailable [phone] Encounter Details Date Type Department Care Team (Late st Contact Info) Description 12/17/2019 Transcribed Document [facility] [address] [place] [address] Provider, Audra Hargrove MD Social History Tobacco Use Types Packs/Day Years Used Date Smoking Tobacco: Never Assessed Comments Unknown Sex and Gender Information Value Date Recorded Sex Assigned at Not on file Legal Sex Female 6:57 PM CDT Gender Identity Not on file Sexual Orientation Not on file documented as of this encounter Miscellaneous Notes * Cerner Conversion Note - [facility] Beena Ogden MD - 12/17/2019 10:59 AM EDT DATE OF PROCEDURE: 12/17/2019 SURGEON: Rell Del Cid MD PREOPERATIVE DIAGNOSIS: Right knee medial meniscus 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 POSTOPERATIVE DIAGNOSIS: Right knee medial meniscus 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 PROCEDURE PERFORMED: Right knee diagnostic arthroscopy with partial medial meniscectomy. MOTOR COACH DRIVER: Mary Valencia CFA ANESTHESIA: General. ESTIMATED BLOOD [...] tolerated the procedure well without any complications. /[id number] Rell Sylvain Del Cid MD ASC/AQ / ASC / MODL /[id number] documented in this encounter Plan of Treatment Upcoming Encounters Date Type Department Care Team (Late st Contact Info) Description 05/20/2025 8:30 AM EST Office Visit [facility] Orthopedics - [address] [place] [address] Nick Rasmussen PA-C [address] [place] [address] 08/19/2025 9:30 AM EST Appointment [facility] [address] [facility] [address] [place] [address] documented as of this encounter Visit Diagnoses Not on filedocumented in this encounter Care Teams Field Training Agent Relationship Specialty Start Date End Date [employer] [address] [place] [address] PCP - General 09/19/22 10/27/23 Lena Aguilera APRN [address] [place] [address] PCP - General Family Medicine 10/28/23 Nick Rasmussen PA-C [address] [place] [address] Orthopedic Surgery 08/07/23 Nimisha Nuñez PA-C [address] [place] [address] Physician Injection Molding Technician Orthopedic Surgery 02/05/24 documented as of this encounter
--- OUTSIDE RECORDS SUMMARY | 2025-03-04 07:23 | XMS_ITS | Referral Summary ---
Author Organization [employer] ([place], [place], [place], [place]) Address [address] [place] [address] Care Team Providers Care Nursing Secretary Name Role Phone Nick Rasmussen PA-C Unavailable [phone] Lena Aguilera APRN Primary Care Provider [phone] Nimisha Nuñez PA-C Unavailable [phone] Encounters Date Type Department Care Team Description 02/11/2025 10:00 AM EDT Office Visit [facility] Orthopedics [facility] [address] [place] [address] Nick Rasmussen PA-C Primary osteoarthritis of left knee (Primary Dx); Primary osteoarthritis of right knee 12/23/2024 2:15 PM EDT Office Visit [facility] Orthopedics [facility] [address] [place] [address] Nick Rasmussen PA-C Left carpal tunnel syndrome (Primary Dx) 12/18/2024 Orders Only [facility] Neurology - [facility] [address] [place] [address] ProviderBeena MD 12/18/2024 Travel 12/18/2024 9:00 AM EDT Procedure Visit [facility] Neurology - [facility] [address] [place] [address] Nick Rasmussen PA-C Everman, Nicole A, MD Numbness and tingling of both upper extremities 12/05/2024 Travel 12/05/2024 10:57 AM EDT - 12/05/2024 2:53 PM EDT Emergency [facility] Emergency Department [address] [place] [address] Mayank Patrick MD Acute cystitis with [...] Date Vijay rded Speak language other than Hungarian at home Not on file 07/19/2023 Want [...] Description 05/20/2025 8:30 AM EST Office Visit [facility] Orthopedics - [address] [place] [address] Nick Rasmussen PA-C [address] [place] [address] 08/19/2025 9:30 AM EST Appointment [facility] [address] [facility] [address] [place] [address] Procedures Procedure Name Priority Date/Time [...] - 58.8 pg/mL 12/05/2024 1:45 PM EDT [facility] Comment: Troponin Result (pg/mL) *Interpretation [...] NP LAB BLOOD ORDERABLES Final Res ult [facility] [address] [phone] * (ABNORMAL) Urinalysis, Reflex Microscopic and Culture If Indicated (12/05/2024 12:45 PM EDT) Color, UA Yellow 12/05/2024 2:20 PM EDT [facility] Clarity, UA Turbid(A) Clear 12/05/2024 2:20 PM EDT [facility] Specific [place], UA 1.024 1.005 - 1.030 12/05/2024 2:20 PM EDT [facility] pH, UA 7.0 6.0 - 8.0 12/05/2024 2:20 PM EDT [facility] Leukocytes, UA 500 Evangelist/uL(A) Negative 12/05/2024 2:20 PM EDT [facility] Nitrite, UA Negative Negative 12/05/2024 2:20 PM EDT [facility] Protein, UA Trace(A) Negative 12/05/2024 2:20 PM EDT [facility] Glucose, UA Normal Normal 12/05/2024 2:20 PM EDT [facility] Ketones, UA Negative Negative 12/05/2024 2:20 PM EDT [facility] Bilirubin, UA Negative Negative 12/05/2024 2:20 PM EDT [facility] Blood, UA Negative Negative 12/05/2024 2:20 PM EDT [facility] Urobilinogen, UA Normal Normal 12/05/2024 2:20 PM EDT [facility] Specimen Source Urine, Clean Catch 12/05/2024 2:20 PM EDT [facility] Urine URINE SPECIMEN COLLECTION, CLEAN CATCH / Unknown 12/05/2024 12:45 PM EDT 12/05/2024 2:07 PM EDT Yamel Hurt NP URINE ORDERABLES Final Result [facility] [address] [place] [address], [facility] [phone] * (ABNORMAL) Urinalysis Microscopic Only (12/05/2024 12:45 PM EDT) WBC, UA 51-100(A) None Seen /HPF 12/05/2024 2:20 PM EDT [facility] RBC, UA 6-10(A) None Seen /HPF 12/05/2024 2:20 PM EDT [facility] Bacteria, UA 2+(A) Trace, None Seen 12/05/2024 2:20 PM EDT [facility] Mucus 1+(A) None Seen 12/05/2024 2:20 PM EDT [facility] SQUAMOUS EPITHELIAL 3-5(A) None Seen /HPF 12/05/2024 2:20 PM EDT [facility] TRANSITIONAL EPITHELIAL CELLS 0-2(A) None Seen /HPF 12/05/2024 2:20 PM EDT [facility] Non Squamous Epithelial Cells Present Absent 12/05/2024 2:20 PM EDT [facility] Urine URINE SPECIMEN COLLECTION, CLEAN CATCH / Unknown 12/05/2024 12:45 PM EDT 12/05/2024 2:07 PM EDT Yamel Hurt NP URINE ORDERABLES Final Result Performing Organization Address [facility]/ZIP Co de Phone Number [facility] [address] [phone] * Urine Culture (12/05/2024 12:45 PM EDT) Result Recollect Specimen - 3 or more organisms suggests contamination 12/07/2024 8:55 AM EDT [facility] Urine URINE SPECIMEN COLLECTION, CLEAN CATCH / Unknown 12/05/2024 12:45 PM EDT 12/05/2024 2:19 PM EDT Yamel Hurt NP MICROBIOLOGY - GENERAL ORDERAB LES Final Result Performing Organization Address [facility]/ZIP Co de Phone Number [facility] [address] [phone] * XR chest 1 view portable / [...] 10.0 K/ L 12/05/2024 11:34 AM EDT [facility] RBC 4.85 3.93 - 6.08 M/ L 12/05/2024 11:34 AM EDT [facility] Hemoglobin 13.8 11.2 - 15.7 GM/DL 12/05/2024 11:34 AM EDT [facility] Hematocrit 41.5 34.1 - 44.9 % 12/05/2024 11:34 AM EDT [facility] MCV 86 79 - 95 fL 12/05/2024 11:34 AM EDT [facility] MCH 28.5 25.6 - 32.2 pg 12/05/2024 11:34 AM EDT [facility] MCHC 33.3 32.2 - 36.5 GM/DL 12/05/2024 11:34 AM EDT [facility] RDW 13.3 11.6 - 14.4 % 12/05/2024 11:34 AM EDT [facility] Platelets 195 163 - 369 K/CU MM 12/05/2024 11:34 AM EDT [facility] MPV 9.6 9.4 - 12.4 fL 12/05/2024 11:34 AM EDT [facility] % Neutros 70 34 - 71 % 12/05/2024 11:34 AM EDT [facility] % Lymphs 16(L) 19 - 53 % 12/05/2024 11:34 AM EDT [facility] % Monos 9 4 - 13 % 12/05/2024 11:34 AM EDT [facility] % Eos 5 1 - 7 % 12/05/2024 11:34 AM EDT [facility] % Baso 1 0 - 1 % 12/05/2024 11:34 AM EDT [facility] # Neutros 4.02 1.56 - 6.13 K/ L 12/05/2024 11:34 AM EDT [facility] # Lymphs 0.90(L) 1.18 - 3.74 K/ L 12/05/2024 11:34 AM EDT [facility] # Monos 0.52 0.24 - 0.82 K/ L 12/05/2024 11:34 AM EDT [facility] # Eos 0.27 0.04 - 0.54 K/ L 12/05/2024 11:34 AM EDT [facility] # Baso 0.05 0.01 - 0.08 K/ L 12/05/2024 11:34 AM EDT [facility] Immature Granulocytes-Re lative 0.30 0.00 - 0.60 % 12/05/2024 11:34 AM EDT [facility] # IG 0.02 0.00 - 0.05 K/uL 12/05/2024 11:34 AM EDT [facility] Blood Venipuncture / Unknown 12/05/2024 11:30 AM EDT 12/05/2024 11:30 AM EDT Narrative [facility] - 12/05/2024 11:34 AM EDT [...] noted Atypical Lymph flag noted Yamel Hurt DIRECTOR DATA MANAGEMENT LAB BLOOD ORDERABLES Final Res ult Performing Organization Address [facility]/ZIP Co de Phone Number [facility] [address] [phone] * aPTT (12/05/2024 11:30 AM EDT) aPTT 25.9 22.0 - 32.0 seconds 12/05/2024 11:48 AM EDT [facility] Blood Venipuncture / Unknown 12/05/2024 11:30 AM EDT 12/05/2024 11:30 AM EDT Yamel Blu DIRECTOR DATA MANAGEMENT LAB BLOOD ORDERABLES Final Res ult Performing Organization Address [facility] Co de Phone Number [facility] [address] [phone] * Prothrombin time/INR (12/05/2024 11:30 AM EDT) Protime 10.4 9.0 - 12.0 seconds 12/05/2024 11:48 AM EDT [facility] INR 0.95 0.80 - 1.10 12/05/2024 11:48 AM EDT [facility] Comment: Recommended therapeutic ranges using [...] NP LAB BLOOD ORDERABLES Final Res ult [facility] [address] [place] [address], [facility] [phone] * (ABNORMAL) Comprehensive metabolic panel (12/05/2024 11:30 AM EDT) Sodium 138 136 - 146 meq/L 12/05/2024 11:55 AM EDT [facility] Potassium 3.9 3.5 - 5.1 meq/L 12/05/2024 11:55 AM EDT [facility] Chloride 106 102 - 112 meq/L 12/05/2024 11:55 AM EDT [facility] CO2 26 21 - 32 meq/L 12/05/2024 11:55 AM EDT [facility] Calcium 9.6 8.5 - 10.1 mg/dL 12/05/2024 11:55 AM EDT [facility] Glucose 109(H) 74 - 106 mg/dL 12/05/2024 11:55 AM EDT [facility] BUN 24(H) 7 - 22 mg/dL 12/05/2024 11:55 AM EDT [facility] Creatinine 1.18(H) 0.55 - 1.02 mg/dL 12/05/2024 11:55 AM EDT [facility] BUN/Creatinine 20 8 - 20 12/05/2024 11:55 AM EDT [facility] Albumin 3.9 3.4 - 5.0 g/dL 12/05/2024 11:55 AM EDT [facility] Alkaline Phosphatase 97 27 - 136 U/L 12/05/2024 11:55 AM EDT [facility] ALT 32 12 - 78 U/L 12/05/2024 11:55 AM EDT [facility] AST 24 5 - 37 U/L 12/05/2024 11:55 AM EDT [facility] Total Bilirubin 0.5 0.2 - 1.3 mg/dL 12/05/2024 11:55 AM EDT [facility] Protein, Total 7.6 6.4 - 8.2 gm/dL 12/05/2024 11:55 AM EDT [facility] Anion Gap 10 9 - 20 12/05/2024 11:55 AM EDT [facility] A/G Ratio 1.1 1.1 - 2.5 12/05/2024 11:55 AM EDT [facility] Globulin 3.7 1.5 - 4.5 g/dL 12/05/2024 11:55 AM EDT [facility] Osmolality Calc 280.3 mOsm/kg 11:55 AM EDT [facility] eGFR (mL/min/1.73m2) 53(L) >=60 mL/min/1.7 3m2 12/05/2024 11:55 AM EDT [facility] Comment:ESTIMATED GFR IS NOT ACCURATE CREATININE CLEARANCE IN PREDICTING GLOMERULAR FILTRATION RATE. ESTIMATED GFR IS NOT APPLICABLE FOR DIALYSIS PATIENTS. Blood Venipuncture / Unknown 12/05/2024 11:30 AM EDT 12/05/2024 11:30 AM EDT us Yamel Hurt NP LAB BLOOD ORDERABLES Final Res ult [facility] [address] [place] [address] * ECG 12 lead (12/05/2024 11:03 AM EDT) SYSTOLIC BLOOD PRESSURE (MCT) 127 mmHg GE MUSE DIASTOLIC BLOOD PRESSURE (MCT) 77 mmHg GE MUSE VENTRICULAR RATE EKG/MIN 73 BPM GE MUSE ATRIAL RATE (MCT) 73 BPM GE MUSE UT Interval 142 ms GE MUSE QRS-INTERVAL (MSEC) 66 ms GE MUSE QT Interval 394 ms GE MUSE QTC Interval 434 ms GE MUSE P [place] 38 degrees GE MUSE R AXIS (MCT) 67 degrees GE MUSE T Wave [place] 55 degrees GE MUSE [place] Diagnosis Normal sinus rhythm Low voltage QRS [...] recommended imaging studies/procedures. At our facility, a [place] marker is positioned over a visible skin [...] family history of breast cancer COMPARISON STUDY: [facility] 08/13/2024 FINDINGS: Craniocaudal and mediolateral oblique [...] Most Recently Relevant to Health Maintenance Insurance [facility] Care Teams Nursing Secretary Relationship Specialty Start Date End Date Lena Aguilera APRN [address] [place] [address] PCP - General Family Medicine 10/28/23 Nick Rasmussen PA-C [address] [place] [address] Orthopedic Surgery 08/07/23 Nimisha Nuñez PA-C [address] [place] [address] Physician Loom Setter Orthopedic Surgery 02/05/24
--- OUTSIDE RECORDS SUMMARY | 2025-03-04 07:23 | XMS_ITS | Encounter Summary ---
Author Organization [employer] ([place], [place], [place], [place]) Address [address] [place] [address] Care Team Providers Care Compliance Professional Name Role Phone Nick Rasmussen PA-C Unavailable [phone] Lena Aguilera APRN Primary Care Provider [phone] Nimisha Nuñez PA-C Unavailable [phone] Reason for Referral * Mammography (Routine) - New Request Specialty Diagnoses / Procedures Referred By Kai robins Referred To Contact Radiology Diagnoses Screening mammogram for breast cancer Procedures MM digital mammo screen with phyllis bilateral Lena Aguilera APRN [address] [place] [address] Phone: tel: fax: [facility] Breast Imaging [address] [place] [address] Phone: tel: fax: Referral ID Status Reason Start Date Expiration Date V isits Requested Visits Authorized [id number] New Request 08/12/2024 08/12/2025 1 1 Encounter Details Date Type Department Care Team (Late st Contact Info) Description 08/12/2024 Outside Orders [facility] Central Scheduling [address] [place] [address] Lena Aguilera APRN [address] [place] [address] Screening mammogram for breast cancer [...] Date Vijay rded Speak language other than Lebanese at home Not on file 07/19/2023 Want [...] Description 05/20/2025 8:30 AM EST Office Visit [facility] Orthopedics - [address] [place] [address] Nick Rasmussen PA-C [address] [place] [address] 08/19/2025 9:30 AM EST Appointment [facility] Breast Care [address] [facility] [address] [place] [address] documented as of this encounter [...] the next mammogram. At our facility, a [place] marker is positioned over a visible skin [...] cancer documented in this encounter Care Teams Compliance Professional Relationship Specialty Start Date End Date Lena Aguilera APRN [address] [place] [address] PCP - General Family Medicine 10/28/23 Nick Rasmussen PA-C [address] [place] [address] Orthopedic Surgery 08/07/23 Nimisha Nuñez PA-C [address] [place] [address] Physician Bobcat Operator Orthopedic Surgery 02/05/24 documented as of this encounter
--- NOTE | 2025-03-04 07:30 | US_ITS ---
FINAL REPORT CLINICAL HISTORY: abd pain FINDINGS: RIGHT UPPER QUADRANT ULTRASOUND Technique: Ultrasound images of the right upper quadrant were obtained. Limited images of the liver parenchyma is normal in echogenicity. The gallbladder is contracted. Multiple echogenic shadowing foci are seen consistent with stones. Common duct is normal. The right kidney is unremarkable. IMPRESSION: Contracted stone filled gallbladder. Reviewed, Interpreted and Dictated by Antoni Yarbrough MD Transcribed by Kelly Saez Authenticated and [facility]
== END 2025-03-04 23:59 | disposition home or self-care (01) ==
LOC: RAD 07:19
PROVIDERS: PCP Family Medicine; Visit Provider Family Medicine
DX: K80.20 Calculus of gallbladder without cholecystitis without obstruction (principal)
CPT/HCPCS: 76705

== ENCOUNTER 2025-03-16 13:03 | Outpatient (CLI) | payer OTHER, SELFPAY ==
--- OUTSIDE RECORDS SUMMARY | 2025-03-16 13:10 | XMS_ITS | Clinical Summary ---
[facility] Organization [facility] Address [address] [place] [address] Phone Care Team Providers Care Spanish Interpreter Name Role Phone Lena Aguilera APRN Primary Care Physician [phone] Conditions or Problems Problem Name Problem Code [...] [BMI] 32.0-32.9, adult Urinary incontinenc e, mild 714950535 (SNOMED CT) 10/29 Active 10/29 Lena Aguilera APRN Urinary incontinence Body mass index (BMI) 32.0-32.9; adult Z68.32 (ICD-10-CM ) 10/29 Removed 10/29 Lena Joneswell HOSPITAL MANAGER Body mass index [BMI] 32.0-32.9, adult Body mass index (BMI) 33.0-33.9; adult Z68.33 (ICD-10-CM ) 07/31 Correction 07/31 Lena Joneswell HOSPITAL MANAGER Body mass index [BMI] 33.0-33.9, adult Sinusitis 06996912 (SNOMED CT) 10/29 Inactive 10/29 Lena Joneswell HOSPITAL MANAGER Sinusitis [facility] Lack of physical exercise Z72.3 [...] [BMI] 33.0-33.9, adult Followup of lab tests 063843663 (SNOMED CT) 07/31 Active 07/31 Lenajose JonesWillymike GAGNON Follow-up status Body mass index (BMI) 33.0-33.9; adult Z68.33 (ICD-10-CM ) 07/25 Removed 07/25 Lena Jonesmike GAGNON Body mass index [BMI] 33.0-33.9, adult Body mass index (BMI) 33.0-33.9; adult Z68.33 (ICD-10-CM ) Correction Lenajose JonesWillymike GAGNON Body mass index [BMI] 33.0-33.9, adult Prediabetes 982804062 (SNOMED CT) 2020 Active 07/25 Lena Aguilera APRN Prediabetes Joint pain 93012733 (SNOMED CT) 07/25 Active 07/25 Lena Aguilera HOSPITAL MANAGER Pain of joint Body mass index (BMI) 33.0-33.9; adult Z68.33 (ICD-10-CM ) Removed Bianka Vania HOSPITAL MANAGER Body mass index [BMI] 33.0-33.9, adult Influenza 0486194 (SNOMED CT) Active Bianka Vania HOSPITAL MANAGER Influenza Body mass index (BMI) 33.0-33.9; adult Z68.33 (ICD-10-CM ) 01/24 Correction 01/24 Bianka Vania HOSPITAL MANAGER Body mass index [BMI] 33.0-33.9, adult Body aches 36770320 (SNOMED CT) Active Bianka Vania HOSPITAL MANAGER Generalized aches and pains Body mass index (BMI) 33.0-33.9; adult Z68.33 (ICD-10-CM ) 01/24 Removed 01/24 Lena Aguilera HOSPITAL MANAGER Body mass index [BMI] 33.0-33.9, adult Body mass index (BMI) 34.0-34.9; adult Z68.34 (ICD-10-CM ) 07/10 Correction 07/10 Lena Aguilera HOSPITAL MANAGER Body mass index [BMI] 34.0-34.9, adult Body [...] index [BMI] 38.0-38.9, adult Colon cancer screening 972925530 (SNOMED CT) 10/27 Active 10/27 Gavin Plascencia MD Screening for malignant neoplasm of colon Mammographi c screening for breast cancer 02918357 (SNOMED CT) 10/27 Active 10/27 Gavin Plascencia MD Screening mammography Exposure to COVID-19 coronavirus 775100102 (SNOMED CT) 07/10 Active 07/10 Lena Aguilera [...] [BMI] 19.9 or less, adult Liver lesion 975182926 (SNOMED CT) 12/28 Active 12/28 Govind Dodson APRN Lesion of liver Abdominal pain, right upper quadrant 092867635 (SNOMED CT) 12/15 Active 12/15 Paola Fuller MA Right upper quadrant pain Diarrhea 48486957 (SNOMED CT) 12/15 Active 12/15 Paola Fuller MA Diarrhea Nausea and vomiting 43062170 (SNOMED CT) 12/15 Active 12/15 Paola Fuller MA Nausea and vomiting Body mass index (BMI) 19 or less; adult Z68.1 (ICD-10-CM ) 10/21 Removed 10/21 Govind Dodson HOSPITAL MANAGER Body mass index [BMI] 19.9 or less, adult Body mass index (BMI) 39.0-39.9; adult Z68.39 (ICD-10-CM ) 09/08 Correction 09/08 Govind Dodson HOSPITAL MANAGER Body mass index [BMI] 39.0-39.9, adult Vaginal lesion 030676897 (SNOMED CT) 10/21 Active 10/21 Govind Dodson HOSPITAL MANAGER Vaginal lesion Nausea and vomiting 62511146 (SNOMED CT) 10/21 Active 10/21 Govind Dodson HOSPITAL MANAGER Nausea and vomiting Cough 28584095 (SNOMED CT) 10/21 Active 10/21 Govind Dodson HOSPITAL MANAGER Cough Body mass index (BMI) 39.0-39.9; adult Z68.39 (ICD-10-CM ) 09/08 Removed 09/08 Govind Dodson HOSPITAL MANAGER Body mass index [BMI] 39.0-39.9, adult Body mass index (BMI) 40.0-44.9; adult Z68.41 (ICD-10-CM ) 02/25 Correction 02/25 Govind Dodson HOSPITAL MANAGER Body mass index [BMI] 40.0-44.9, adult Vitamin D deficiency 80253119 (SNOMED CT) 09/08 Active 09/08 Govind Dodson HOSPITAL MANAGER Vitamin D deficiency Gout 45711042 (SNOMED CT) 09/08 Active 09/08 Govind Dodson HOSPITAL MANAGER Gout Body mass index (BMI) 40.0-44.9; adult Z68.41 (ICD-10-CM ) 02/25 Removed 02/25 Govind Dodson APRN Body mass index [BMI] 40.0-44.9, adult Shoulder joint pain, right 023263374 (SNOMED CT) 02/25 Active 02/25 Govind Dodson HOSPITAL MANAGER Shoulder joint pain Counseling for nutrition Z71.3 (ICD-10-CM ) 02/25 Inactive 02/25 Govind Dodson APRN Dietary counseling and surveillance Body mass index (BMI) 39.0-39.9; adult Z68.39 (ICD-10-CM ) 11/12 Correction 11/12 Govind Dodson HOSPITAL MANAGER Body mass index [BMI] 39.0-39.9, adult Prediabetes 468441843 (SNOMED CT) 02/25 Active 02/25 Govind Dodson HOSPITAL MANAGER Prediabetes Body mass index (BMI) 39.0-39.9; adult Z68.39 (ICD-10-CM ) 11/12 Removed 11/12 Govind Dodson HOSPITAL MANAGER Body mass index [BMI] 39.0-39.9, adult Counseling for nutrition Z71.3 (ICD-10-CM ) 11/12 Inactive 11/12 Govind Dodson HOSPITAL MANAGER Dietary counseling and surveillance Body mass index (BMI) 39.0-39.9; adult Z68.39 (ICD-10-CM ) 08/21 Correction 08/21 Govind Dodson APRN Body mass index [BMI] 39.0-39.9, adult Enlarged lymph nodes 38082776 (SNOMED CT) 11/12 Active 11/12 Govind Dodson HOSPITAL MANAGER Lymphadenopath y Elevated liver enzymes 974288117 (SNOMED CT) 08/25 Active 08/25 Govind Dodson HOSPITAL MANAGER Liver enzymes outside reference range Hyperlipide dillon 24368787 (SNOMED CT) 08/25 Active 08/25 Govind Dodson HOSPITAL MANAGER Hyperlipidemia Hyperglycem ia 23396121 (SNOMED CT) 08/25 Active 08/25 Govind Dodson HOSPITAL MANAGER Hyperglycemia Body mass index (BMI) 39.0-39.9; adult Z68.39 (ICD-10-CM ) 08/21 Removed 08/21 Govind Dodson APRN Body mass index [BMI] 39.0-39.9, adult Breast exam 90317471 (SNOMED CT) 08/21 Active 08/21 Govind Dodson HOSPITAL MANAGER Examination of breast Foot joint pain, left 716358099 (SNOMED CT) 08/21 Active 08/21 Govind Dodson HOSPITAL MANAGER Pain of joint of foot Knee joint pain, right 28554610 (SNOMED CT) 08/21 Active 08/21 Govind Dodson HOSPITAL MANAGER Knee pain Dysuria 28536928 (SNOMED CT) 08/21 Active 08/21 Govind Dodson HOSPITAL MANAGER Dysuria Vaginal discharge 772257201 (SNOMED CT) 08/21 Active 08/21 Govind Dodson HOSPITAL MANAGER Vaginal discharge Establish care or get acquainted visit 029378750 (SNOMED CT) 08/21 Active 08/21 Govind Dodson APRN Procedure carried out on subject Hypothyroid 54063254 (SNOMED CT) 08/21 Active 08/21 Govind Dodson HOSPITAL MANAGER Hypothyroidism Hypertensio n, benign 17739909 (SNOMED CT) 08/21 Active 08/21 Govind Dodson HOSPITAL MANAGER Benign hypertension Hx of hysterectom y, total 899421644 (OMED CT) 08/21 Active 08/21 Govind Dodson HOSPITAL MANAGER Total hysterectomy Medications Medication Instructions Start Date Stop Date Generic Name ND Provider Diflucan 150 mg tablet Take 1 tablet by mouth single dose May repeat in 7 days 11/05 Diflucan 150 mg tablet Lena Willy HOSPITAL MANAGER NATURAL VITAMIN D-3 125 MCG (5000 UT) TABS Take 1 tablet by mouth once a day 11/05 cholecalciferol (vitamin d3) 82489462284 Lena Willymike JENKINSN AMOXICILLIN 500 MG CAPS Take 1 capsule by mouth twice a day for 10 days 10/29 amoxicillin 12038607658 Lena Willy HOSPITAL MANAGER GOODSENSE ASPIRIN 81 MG CHEW 08/07 aspirin 08423860478 Lena Willy HOSPITAL MANAGER FISH OIL 1000 MG CAPS Take 1 capsule by mouth twice a day 07/25 omega 3-bis-brt-fish oil 47993574749 Lena Aguilera APRN GOODSENSE ASPIRIN 81 MG CHEW Take 1 tablet by mouth once a day 08/07 aspirin 04716503505 Lena Aguilera APRN LISINOPRIL-HYDROCHLO ROTHIAZIDE 20-12.5 MG TABS Take 1 tablet by mouth once a day 07/10 lisinopril-hydroch lorothiazide 77913939075 Lena Aguilera APRN FISH OIL 1000 MG CAPS Take 1 capsule by mouth twice a day 07/25 omega 7-jrm-wbq-fish oil 17340829028 Lena Aguilera APRN LEVOTHYROXINE SODIUM 75 MCG TABS Take 1 tablet by mouth once a day 08/21 levothyroxine 57757574221 Lena Aguilera APRN LISINOPRIL-HYDROCHLO ROTHIAZIDE 20-12.5 MG TABS Take 1 tablet by mouth once a day 07/10 lisinopril-hydroch lorothiazide 97711290294 Marine Lawrence APRN LEVOTHYROXINE SODIUM 75 MCG TABS Take 1 tablet by mouth once a day 08/21 levothyroxine 37556657386 Marine Lawrence APRN FISH OIL 1000 MG CAPS Take 1 capsule by mouth twice a day 07/25 omega 0-gwv-aas-fish oil 84683513082 Lena Aguilera APRN TAMIFLU 75 MG CAPS Take 1 capsule by mouth twice a day FOR FIVE DAYS 07/25 oseltamivir 03276544996 Lena Aguilera APRN PREDNISONE 20 MG TABS Take 1 tablet by mouth twice a day for 5 days 07/25 prednisone 25739139468 Lena Aguilera APRN PRAVASTATIN SODIUM 20 MG TABS Take 1 tablet by mouth once a day 01/24 pravastatin 11306580623 Lena Aguilera APRN TAMIFLU 75 MG CAPS Take 1 capsule by mouth twice a day FOR FIVE DAYS oseltamivir 38808400642 Lena Aguilera APRN PREDNISONE 20 MG TABS Take 1 tablet by mouth twice a day for 5 days prednisone 00093752034 Lena Aguilera APRN PRAVASTATIN SODIUM 20 MG TABS Take 1 tablet by mouth once a day 01/24 pravastatin 79765723726 Lena Aguilera APRN PRAVASTATIN SODIUM 20 MG TABS Take 1 tablet by mouth once a day 01/24 pravastatin 44901380570 Rebecca Abhinav HOSPITAL MANAGER TAMIFLU 75 MG CAPS Take 1 capsule by mouth twice a day FOR FIVE DAYS oseltamivir 54726836513 Bianka Vania HOSPITAL MANAGER PREDNISONE 20 MG TABS Take 1 tablet by mouth twice a day for 5 days prednisone 50078775923 Bianka Vania KALIN GOODSENSE ASPIRIN 81 MG CHEW aspirin 43549384483 Lena Aguilera APRN METFORMIN HCL 500 MG TABS Take increase to 2 tablets in AM and 1 tablet in PM metformin 77920091622 Lena Aguilera APRN ALLOPURINOL 100 MG TABS TAKE 1 TABLET BY MOUTH ONCE DAILY 01/07 allopurinol 99372016847 Lena Aguilera APRN LEVOTHYROXINE SODIUM 75 MCG TABS Take 1 tablet by mouth once a day 08/21 levothyroxine 61408140181 Lena Aguilera APRN LISINOPRIL-HYDROCHLO ROTHIAZIDE 20-12.5 MG TABS Take 1 tablet by mouth once a day 07/10 lisinopril-hydroch lorothiazide 10653888162 Lena Aguilera APRN PRAVASTATIN SODIUM 20 MG TABS Take 1 tablet by mouth once a day 01/24 pravastatin 49045495071 Lena Aguilera APRN METFORMIN HCL 500 MG TABS Take increase to 2 tablets in AM and 1 tablet in PM metformin 90717128270 Gavin Plascencia MD PRAVASTATIN SODIUM 10 MG TABS Take 1 tablet by mouth every night 09/09 pravastatin 53931906105 Gavin Plascencia MD METHOCARBAMOL 750 MG TABS TAKE 1 TABLET BY MOUTH THREE TIMES DAILY as needed for muscle spasms. 07/10 methocarbamol 72543733603 Gavin Plascencia MD LEVOTHYROXINE SODIUM 75 MCG TABS Take 1 tablet by mouth once a day 08/21 levothyroxine 03839450323 Gavin Plascencia MD NAPROXEN 500 MG TABS Take 1 tablet by mouth twice a day as needed 08/21 naproxen 81913367573 Gavin Plascencia MD LISINOPRIL-HYDROCHLO ROTHIAZIDE 20-25 MG TABS Take 1 tablet by mouth once a day 07/10 lisinopril-hydroch lorothiazide 66298923791 Gavin Plascencia MD LISINOPRIL-HYDROCHLO ROTHIAZIDE 20-12.5 MG TABS Take 1 tablet by mouth once a day 07/10 lisinopril-hydroch lorothiazide 90856559586 Gavin Plascencia MD CYCLOBENZAPRINE HCL 10 MG TABS Take 1 tablet by mouth at bedtime 07/10 cyclobenzaprine 48810424581 Gavin Plascencia MD METFORMIN HCL 500 MG TABS Take increase to 2 tablets in AM and 1 tablet in PM metformin 68435569658 Holly Nolan APRN PRAVASTATIN SODIUM 10 MG TABS Take 1 tablet by mouth every night 09/09 pravastatin 58069794109 Holly Nolan APRN LISINOPRIL-HYDROCHLO ROTHIAZIDE 20-25 MG TABS Take 1 tablet by mouth once a day lisinopril-hydroch lorothiazide 85554437614 Holly Nolan APRN LEVOTHYROXINE SODIUM 75 MCG TABS Take 1 tablet by mouth once a day 08/21 levothyroxine 58969670970 Holly Blanchejulienne HOSPITAL MANAGER METHOCARBAMOL 750 MG TABS TAKE 1 TABLET BY MOUTH THREE TIMES DAILY as needed for muscle spasms. methocarbamol 58974541661 Holly Nolan APRN LEVOTHYROXINE SODIUM 75 MCG TABS Take 1 tablet by mouth once a day 08/21 levothyroxine 31349902005 Govind Dodson APRN PRAVASTATIN SODIUM 10 MG TABS Take 1 tablet by mouth every night 09/09 pravastatin 56906338171 Govind Dodson APRN METFORMIN HCL 500 MG TABS Take increase to 2 tablets in AM and 1 tablet in PM metformin 66830122434 Govind Dodson APRN METHOCARBAMOL 750 MG TABS TAKE 1 TABLET BY MOUTH THREE TIMES DAILY as needed for muscle spasms. methocarbamol 46167149661 Govind West JENKINSN HYDROCHLOROTHIAZIDE 25 MG TABS Take 1 tablet by mouth once a day TAKE ONE TABLET BY MOUTH DAILY 03/17 hydrochlorothiazid e 92444448638 Govind West GAGNON VITAMIN D3 1.25 MG (21086 UT) CAPS Take 1 capsule by mouth once a week 09/08 cholecalciferol (vitamin d3) 18800341607 Govind Dodson APRN LISINOPRIL-HYDROCHLO ROTHIAZIDE 20-25 MG TABS Take 1 tablet by mouth once a day lisinopril-hydroch lorothiazide 07616204150 Govind Dodson APRN METFORMIN HCL 500 MG TABS Take increase to 2 tablets in AM and 1 tablet in PM metformin 03263177429 Gavin Plascencia MD ALLOPURINOL 100 MG TABS TAKE 1 TABLET BY MOUTH ONCE DAILY 01/07 allopurinol 15293455432 Gavin Plascencia MD LEVOTHYROXINE SODIUM 75 MCG TABS Take 1 tablet by mouth once a day 08/21 levothyroxine 55247603969 Gavin Plascencia MD VITAMIN D3 1.25 MG (90483 UT) CAPS Take 1 capsule by mouth once a week 09/08 cholecalciferol (vitamin d3) 40126023129 Gavin Plascencia MD HYDROCHLOROTHIAZIDE 25 MG TABS Take 1 tablet by mouth once a day TAKE ONE TABLET BY MOUTH DAILY 03/17 hydrochlorothiazid e 46141576070 Gavin Plascencia MD PRAVASTATIN SODIUM 10 MG TABS Take 1 tablet by mouth every night 09/09 pravastatin 26356792452 Gavin Plascencia MD METFORMIN HCL 500 MG TABS Take 1 tablet by mouth twice a day increase to 2 tablets in AM and 1 tablet in PM 04/07 metformin 93927960644 Govind Dodson APRN METFORMIN HCL 500 MG TABS Take increase to 2 tablets in AM and 1 tablet in PM metformin 87623408494 Govind Dodson APRN LEVOTHYROXINE SODIUM 75 MCG TABS Take 1 tablet by mouth once a day 08/21 levothyroxine 34473109607 Govind Dodson APRN METFORMIN HCL 500 MG TABS Take 1 tablet by mouth twice a day 09/09 metformin 81053927413 Govind Dodson APRN HYDROCHLOROTHIAZIDE 25 MG TABS Take 1 tablet by mouth once a day TAKE ONE TABLET BY MOUTH DAILY 03/17 hydrochlorothiazid e 84431757923 Govind Dodson APRN METFORMIN HCL 500 MG TABS Take 1 tablet by mouth twice a day increase to 2 tablets in AM and 1 tablet in PM metformin 88345845856 Govind Dodson APRN LEVOTHYROXINE SODIUM 75 MCG TABS Take 1 tablet by mouth once a day 08/21 levothyroxine 14849894516 Joana Boudreaux APRN HYDROCHLOROTHIAZIDE 25 MG TABS Take 1 tablet by mouth once a day 08/21 hydrochlorothiazid e 78414501478 Paola Fuller MA HYDROCHLOROTHIAZIDE 25 MG TABS Take 1 tablet by mouth once a day TAKE ONE TABLET BY MOUTH DAILY 03/17 hydrochlorothiazid e 40461568272 Joana Boudreaux APRN ALLOPURINOL 100 MG TABS Take 1 tablet by mouth once a day 09/08 allopurinol 93075008318 Govind Dodson APRN ALLOPURINOL 100 MG TABS TAKE 1 TABLET BY MOUTH ONCE DAILY 01/07 allopurinol 76841622875 Govind Dodson APRN NAPROXEN 500 MG TABS Take 1 tablet by mouth twice a day as needed 08/21 naproxen 61871630200 Govind Dodson APRN VITAMIN D3 1.25 MG (11518 UT) CAPS Take 1 capsule by mouth once a week 09/08 cholecalciferol (vitamin d3) 26371482077 Govind Dodson APRN ALLOPURINOL 100 MG TABS Take 1 tablet by mouth once a day 09/08 allopurinol 61078946907 Govind Dodson APRN IMODIUM A-D 2 MG TABS TAKE 2 TABLETS BY MOUTH ONCE THEN TAKE 1 TABLET AFTER EACH LOOSE BOWEL MOVEMENT. MAX 4 TABLETS IN 24 HOURS 10/21 LOPERAMIDE HCL Govind Dodson KALIN LEVOTHYROXINE SODIUM 75 MCG TABS Take 1 tablet by mouth once a day 08/21 levothyroxine 00037475082 Govind Dodson APRN METFORMIN HCL 500 MG TABS Take 1 tablet by mouth twice a day 09/09 metformin 71323152566 Govind Dodson APRN PRAVASTATIN SODIUM 10 MG TABS Take 1 tablet by mouth every night 09/09 pravastatin 50763417417 Govindravi Dodson KALIN HYDROCHLOROTHIAZIDE 25 MG TABS Take 1 tablet by mouth once a day 08/21 hydrochlorothiazid e 30735814445 Paola Alina MA IMODIUM A-D 2 MG [...] as needed for nausea/vomiti ng 12/15 ondansetron 35081212360 Govindravi Dodson KALIN VALTREX 1 GM TABS TAKE 1 TABLET BY MOUTH 2 TIMES A DAY 10/21 VALACYCLOVIR HCL 68682951809 Govind Dodson KALIN IMODIUM A-D 2 MG TABS TAKE 2 TABLETS BY MOUTH ONCE THEN TAKE 1 TABLET AFTER EACH LOOSE BOWEL MOVEMENT. MAX 4 TABLETS IN 24 HOURS 10/21 LOPERAMIDE HCL 83053563256 Govind Dodson APRN ONDANSETRON HCL 8 MG TABS TAKE 1 TABLET BY MOUTH EVERY 8 HOURS NEEDED FOR NAUSEA/VOMTIN G 10/21 ONDANSETRON HCL 04018995481 Govind Dodson APRN METFORMIN HCL 500 MG TABS TAKE 1 TABLET BY MOUTH 2 TIMES A DAY 09/09 METFORMIN HCL 98933117467 Govind Dodson HOSPITAL MANAGER PRAVASTATIN SODIUM 10 MG TABS TAKE 1 TABLET BY MOUTH AT BEDTIME FOR CHOLESTEROL 09/09 PRAVASTATIN SODIUM 82379953034 Govind Dodson APRN VITAMIN D3 1.25 MG (06005 UT) CAPS TAKE 1 CAPSULE BY MOUTH ONCE PER WEEK 09/08 CHOLECALCIFEROL 68200412318 Govind Dodson APRN ALLOPURINOL 100 MG TABS TAKE 1 TABLET BY MOUTH ONCE A DAY 09/08 ALLOPURINOL 69691271501 Govind Dodson APRN PRAVASTATIN SODIUM 10 MG TABS TAKE 1 TABLET BY MOUTH AT BEDTIME FOR CHOLESTEROL 02/26 PRAVASTATIN SODIUM 39023573429 Govind Dodson APRN METFORMIN HCL 500 MG TABS TAKE 1 TABLET BY MOUTH 2 TIMES A DAY 02/26 METFORMIN HCL 27951145506 Govind Dodson APRN METFORMIN HCL 500 MG TABS TAKE 1 TABLET BY MOUTH 2 TIMES A DAY 02/26 METFORMIN HCL 77215905591 Govind Dodson APRN PRAVASTATIN SODIUM 10 MG TABS TAKE 1 TABLET BY MOUTH AT BEDTIME FOR CHOLESTEROL 02/26 PRAVASTATIN SODIUM 07829785231 Govind Dodson APRN LEVOTHYROXINE SODIUM 75 MCG TABS TAKE 1 TABLET BY MOUTH ONCE A DAY 08/21 LEVOTHYROXINE SODIUM 55456116547 Govind Dodson APRN NAPROXEN 500 MG TABS TAKE 1 TABLET BY MOUTH 2 TIMES A DAY NEEDED 08/21 NAPROXEN 25483585636 Govind Dodson APRN HYDROCHLOROTHIAZIDE 25 MG TABS TAKE ONE TABLET BY MOUTH ONCE DAILY 08/21 HYDROCHLOROTHIAZID E 09538743281 Govind Dodson APRN LEVOTHYROXINE SODIUM 50 MCG TABS TAKE ONE TABLET BY MOUTH ONCE DAILY 08/21 LEVOTHYROXINE SODIUM 15159687633 Govind Dodson APRN Medications Administered No information available. Allergies, Adverse Reactions, Alerts Allergy Name Reaction Description Start Date Severity Statu s Provider BACTRIM RASH Mild Active Govind hastings HOSPITAL MANAGER Results Date Name Value Unit Range Flag [...] Office Visit: INFLUENZA LABS ORDERED Strep Screen 00546 Laboratory tests ordered RAPID STREP negative Streptoc [...] in Blood ABS NEUTROPH 3450 CELLS/UL 10*3/uL 1563-1225 N Neutrophils [#/volume] in Blood MPV 10.7 [...] Appointment 08:30 AM Lena Aguilera APRN, [address] , [place], [address], Referral [facility], [address], [place], [address] Referral [facility], [address], [place], [place] Referral Orthopedic Refer ral General Pending [...] COV ID-19 Pending order Urine Dip Manual [id number] Pending order T1 CMP Pending order T1 Lipid Panel Pending order T1 TSH reflex to free T4 Pending order Urine Dip Manual [id number] Pending Order exclud ed from report: Pending [...] Procedures Code Procedure Name Date Entry Date [id number] Medication Reconciliation CPT-3075F Most recent systolic blood pressure 130-139 mm Hg CPT-3078F Most recent diastoli c blood pressure <80 mm Hg CPT-1159F Medication list docu mented in medical record CPT-1160F Review of all medica tions by a prescribing practitioner [facility] 6399 T1 CBC with diff [facility] 12596 T1 CMP [facility] 33716 T1 Lipid Panel [facility] 76477 T1 TSH reflex to free T4 11/03/07 [facility] 496 T1 HGBA1c SCT-[id number] Medication Reconciliation CPT-3074F Most recent systolic blood pressure <130 mm Hg CPT-3078F Most recent diastoli c blood pressure <80 mm Hg CPT-1159F Medication list docu mented in medical record CPT-1160F Review of all medica tions by a prescribing practitioner [facility] 395 T1 Urine Culture CPT-1159F Medication list docu mented in medical record CPT-1160F Review of all medica tions by a prescribing practitioner SCT-[id number] Lifestyle education regarding diet 08/07 [facility] 62413 T1 CMP [facility] 6399 T1 CBC with diff [facility] 45499 T1 Lipid Panel [facility] 50856 T1 TSH reflex to free T4 10/30/06 [facility] 496 T1 HGBA1c SCT-[id number] Medication Reconciliation Mammo LUCIEN Mammogram CPT-1159F Medication list docu mented in medical record SCT-[id number] Medication Reconciliation [facility] 02344 T1 CMP [facility] 6399 T1 CBC with diff [facility] 87635 T1 Lipid Panel [facility] 496 T1 HGBA1c [facility] 24037 T1 TSH reflex to free T4 10/06/00 CPT-3074F Most recent systolic blood pressure <130 mm Hg CPT-3078F Most recent diastoli c blood pressure <80 mm Hg SCT-[id number] Medication Reconciliation CPT-3074F Most recent systolic blood pressure <130 mm Hg CPT-3078F Most recent diastoli c blood pressure <80 mm Hg CPT-1159F Medication list docu mented in medical record CPT-1160F Review of all medica tions by a prescribing practitioner US URQ LUCIEN Ultrasound RUQ SCT-[id number] Lifestyle education regarding diet 07/25 [facility] 02892 T1 CMP [facility] 6399 T1 CBC with diff [facility] 496 T1 HGBA1c [facility] 93432 T1 Lipid Panel [facility] 79352 T1 TSH reflex to free T4 202 09/29/24 [facility] 4418 T2 Rheumatoid Factor Quant 2 [facility] 249 T2 BEN [facility] 809 T1 Sedimentation Rate RBC 20 24/07/24 [facility] 07407 T1 Acute Hepatits Panel 2023 [facility] 16422 T2 Vitamin D 25 Hydroxy 2023 [facility] CPT-42863 Strep Screen 51656 7 CPT-3074F Most recent systolic blood pressure <130 mm Hg CPT-3079F Most recent diastoli c blood pressure 80-89 mm Hg CPT-1159F Medication list docu mented in medical record SCT-[id number] Medication Reconciliation SCT-[id number] Never smoker CPT-1159F Medication list docu mented in medical record CPT-1160F Review of all medica tions by a prescribing practitioner [facility] 63013 T1 CMP [facility] 6399 T1 CBC with diff [facility] 496 T1 HGBA1c [facility] 31218 T1 Lipid Panel [facility] 79706 T1 TSH reflex to free T4 09/04/26 [facility] 54600 T2 Vitamin D 25 Hydroxy 2022 Mammo LUCIEN Mammogram SCT-[id number] Medication Reconciliation CPT-3074F Most recent systolic blood pressure <130 mm Hg CPT-3079F Most recent diastoli c blood pressure 80-89 mm Hg SCT-[id number] Medication Reconciliation [facility] 6399 T1 CBC with diff [facility] 06078 T1 CMP [facility] 496 T1 HGBA1c [facility] 99774 T1 Lipid Panel [facility] 51808 T1 TSH reflex to free T4 202 [...] Medication list docu mented in medical record SCT-[id number] Medication Reconciliation SCT-[id number] Giving encouragement to exercise SCT-[id number] Dietary management education/guidance/counseling SCT-984275118 Lifestyle education regarding diet 04/26 SCT-300703959 Prescribed activity/exercise education [facility] 98149 T1 CMP [facility] 496 T1 HGBA1c [facility] 34521 T1 Lipid Panel [facility] 67068 T1 TSH reflex to free T4 08/10/26 [facility] 87285 T2 Vitamin D 25 Hydroxy 2021 SCT-[id number] Medication Reconciliation [id number] Lipid Profile [id number] SGPT (ALT) [id number],[id number] SGOT (AST) [facility] 6399 T1 CBC with diff [facility] 68639 T1 CMP [facility] 496 T1 HGBA1c [facility] 04541 T1 Lipid Panel [facility] 42568 T1 TSH reflex to free T4 08/04/28 [facility] 905 T1 Uric Acid Mammo LUCIEN Mammogram CPT-3077F Most recent systolic blood pressure >=140 mm Hg CPT-3079F Most recent diastolic blood pressure 80-8 9 mm Hg CPT 145[address] [place] [address] SCT-[id number] Medication Reconciliation [facility] 42836 Patient Pay- COVID-19 07/10 SCT-[id number] Medication Reconciliation CPT-3074F Most recent systolic blood pressure <130 mm Hg CPT-3078F Most recent diastoli c blood pressure <80 mm Hg CPT-1159F Medication list docu mented in medical record CPT-1160F Review of all medica tions by a prescribing practitioner [facility] 36952 T1 CMP [facility] 6399 T1 CBC with diff [facility] 496 T1 HGBA1c [facility] 32403 T1 TSH reflex to free T4 202 07/10/06 CT ABD & PELV W&WO CT Abdomen and Pelvis w & w-out con trast CPT-1159F Medication list docu mented in medical record SCT-[id number] Medication Reconciliation CPT-1160F Review of all medica tions by a prescribing practitioner SCT-520327110 Giving encouragement to exercise [id number] Dietary management education/guidance/counseling SCT-[id number] Lifestyle education regarding diet 12/15 SCT-[id number] Prescribed activity/exercise education [facility] 243 T1 Amylase [facility] 6399 T1 CBC with diff [facility] 00522 T1 CMP [facility] 606 T1 Lipase [facility] 53075 Patient Pay- COVID-19 0 12/15 [place] [facility] Ultrasound Gall Bladder 2020 [id number] Medication Reconciliation [facility] 12939 Patient Pay- COVID-19 10/21 SCT-[id number] Medication Reconciliation CPT-3075F Most recent systolic blood pressure 130-139 mm Hg CPT-3078F Most recent diastoli c blood pressure <80 mm Hg CPT-94577 Urine Dip Manual 69814 09/08 CPT-1159F Medication list docu mented in medical record CPT-1160F Review of all medica tions by a prescribing practitioner SCT-[id number] Giving encouragement to exercise SCT-646300845 Dietary management education/guidance/counseling SCT-167751330 Lifestyle education regarding diet 09/08 SCT-789666429 Prescribed activity/exercise education 2 [facility] 55525 T1 CMP [facility] 95773 T1 Lipid Panel [facility] 27876 T1 TSH reflex to free T4 202 07/03/10 SCT-[id number] Medication Reconciliation CPT-3074F Most recent systolic blood pressure <130 mm Hg CPT-3079F Most recent diastoli c blood pressure 80-89 mm Hg CPT-1159F Medication list docu mented in medical record CPT-1160F Review of all medica tions by a prescribing practitioner X-Ray Shoulder Right X-Ray Shoulder Right [facility] 94405 T1 CMP Quest 496 T1 HGBA1c Quest 66544 T1 TSH reflex to free T4 202 [facility] 06701 T1 Lipid Panel [id number] Medication Reconciliation SCT-[id number] Medication Reconciliation Other Other CPT-3075F Most recent systolic blood pressure 130-139 mm Hg CPT-3079F Most recent diastoli c blood pressure 80-89 mm Hg ORTHO GEN Orthopedic Referral General X-Ray Knee Right X-Ray Knee Right Quest 496 T1 HGBA1c Quest 94595 T1 Acute Hepatits Panel 2019 MRI KNEE WO [facility] MRI Knee w-o contrast 202 SCT-[id number] Medication Reconciliation [facility] 6399 T1 CBC with diff [facility] 22812 T1 CMP [facility] 78802 T1 Lipid Panel [facility] 82122 T1 TSH reflex to free T4 202 CPT-3074F Most recent systolic blood pressure <130 mm Hg CPT-3079F Most recent diastoli c blood pressure 80-89 mm Hg [facility] 28124 T2 BV Yeast Trich Culture (Affirm) 08/21 X-Ray Foot Left X-Ray Foot Left 1 SCT-101438433 Giving encouragement to exercise SCT-173486786 Dietary management education/guidance/counseling SCT-351836883 Lifestyle education regarding diet 08/21 SCT-446351112 Prescribed activity/exercise education 2 CPT-06935 Urine Dip Auto 88550 Mammo LUCIEN Mammogram Vital Signs Date Name [...]
--- OUTSIDE RECORDS SUMMARY | 2025-03-16 13:11 | XMS_ITS | Clinical Summary ---
Author Organization [facility] Address [address] [place] [address] Care Team Providers Care Architectural Project Manager Name Role Phone Provider, No Known Primary Care Provider Unavail able Allergies No known active allergies Medications azithromycin (Zithromax Z-Seamus) 250 MG tablet Take 2 tablets by mouth on day 1, then 1 tablet daily on days 2-5 6 tablet 12/11/2024 Active diclofenac (VOLTAREN) 75 MG EC tablet Take 1 tablet by mouth 2 (Two) Times a Day. 12 tablet 12/11/2024 Active Social History Tobacco Use Types Packs/Day Years [...] 2025 INFLUENZA VACCINE 03/31/2025 MAMMOGRAM 09/10/2026 09/10/2024, 08/29, 08/13/2024, Additional history exists Insurance Care Teams Architectural Project Manager Relationship Specialty Start Date End Date [place], [place] [address] PCP - General 12/11/24
[2025-03-16 13:46] LABS: Chloride 103 mmol/L (98-107); Sodium 141 mmol/L (136-145)
[2025-03-16 13:47] LABS: Hematocrit 39.0 % (37.0-47.0); Hemoglobin 12.4 g/dL (12.2-16.2); Immature Granulocytes % 0.3 %; Mean Corpuscular HGB Conc 31.8 g/dL (31.8-35.4); Mean Corpuscular Hemoglobin 27.0 pg (27.0-31.2); Mean Corpuscular Volume 84.8 fl (81-99); Nucleated Red Blood Cells % 0 %; Platelet Count 192 K/mm3 (142-424); Potassium 3.2 mmoL/L (3.5-5.1); Red Blood Count 4.60 M/mm3 (4.20-5.40); Red Cell Distribution Width-SD 39.7 fL; White Blood Count 6.2 K/mm3 (4.8-10.8)
[2025-03-16 13:49] LABS: Alanine Aminotransferase 32 U/L (12-78); Aspartate Amino Transferase 35 U/L (14-36); Blood Urea Nitrogen 26 mg/dl (7-17); Creatinine,Serum 1.10 mg/dl (0.52-1.04); Estimated Glomerular Filt Rate 50 ml/min (>60); GFR (African American) 61 ML/MIN (>60)
[2025-03-16 13:50] LABS: Alkaline Phosphatase 94 U/L (38-126); Bilirubin,Total 0.6 mg/dl (0.2-1.3); Calcium 10.2 mg/dl (8.4-10.2); Glucose 109 mg/dl (74-100); Total Protein,Serum 7.7 g/dl (6.3-8.2)
[2025-03-16 16:09] LABS: Albumin Level 4.7 g/dl (3.5-5.0); Albumin/Globulin Ratio 1.6 (1.1-1.8); Anion Gap 14.2 mEq/L (5-15); Carbon Dioxide 27 mmol/L (22.0-30.0); Globulin 3.0 g/dL (1.3-3.2)
[2025-03-17 12:22] VITALS: BMI 35.9
== END 2025-03-16 23:59 | disposition home or self-care (01) ==
LOC: PREOP 13:04
PROVIDERS: PCP Family Medicine; Visit Provider Surgery
DX: Z01.812 Encounter for preprocedural laboratory examination (principal)
CPT/HCPCS: 80053; 85025

== ENCOUNTER 2025-03-22 08:17 | Day surgery (SDC) | payer OTHER, SELFPAY ==
[2025-03-17 12:20] VITALS: BMI 35.9
[2025-03-22] VITALS (12 sets, daily range): BP systolic 118–136; BP diastolic 61–77; PULSE 54–73; RESP 15–18; TEMP 36.1–38; O2SAT 93–100
--- NOTE | 2025-03-22 08:57 | EXP.ANES.CKL ---
[facility] Disclaimer: The information contained in this section may have been updated after the patient was seen, as this information can be updated by other users. Medical History CAD (coronary artery disease) Tricuspid regurgitation Mitral regurgitation Daytime somnolence Snoring Edema SOB (shortness of breath) Abnormal findings on diagnostic imaging of heart and coronary circulation Pre-syncope Hypothyroid Pre-diabetes Gout Surgical History H/O: hysterectomy Family History Mother Cancer Kidney disease Hypertension Thyroid disorder Father Cancer Hypertension Social History Smoking Status: Never smoker alcohol intake: current substance use type: denies use current occupational status: employed Travel in the last 8 weeks?: None marital status: number of children: 2 Have you lived/traveled outside US in past 30 days?: No Contact w/someone who lives/traveled outside US past 30 days?: No Exposure to someone with infectious disease in past 14 days?: No Do you have a fever (greater than 100.4 F or 38 C)?: No Have you tested positive for COVID-19?: No Exposed to someone with COVID-19 in past 14 days?: No Do you have a sore throat?: No Do you have a cough?: No Do you have any weakness?: No Do you have any diarrhea?: No Are you experiencing any unusual bleeding?: No Do you have any muscle aches/pain?: No Do you have any abdominal pain?: No Are you experiencing loss of taste or smell?: No [facility] Anesthesia Checklist Patient Identification Patient Identification: Arm Band and Verbal (Name & ) Structural Data Admitted From: Home Planned Operative Procedure/s: lap madyson Consent for Planned Operative Procedure(s) Verified: Yes Verified Documents: Surgical Consent and History and Physical NPO Status Verified Time NPO: 00:00 Additional verifications Anesthesia Reactions: No Hx Blood Transfusions: No Blood Transfusion Reaction: No Airway Assessment Mallampati Score:: Class II Dentition: Good Dentition Neurological Assessment Level of Consciousness: Awake, Alert and Appropriate Hx Seizures: No Numbness or tingling in extremities: No Anesthesia Plan Anesthesia Risk discussed: Yes Anesthesia Plan: Verified ASA Class: III Anesthesia Type: General
[2025-03-22] MEDS: SODIUM CHLORIDE IRRIG SOLUTION 3,000 ML 200 ML IR (09:48)
[2025-03-22] MEDS: LIDOCAINE 1% 20ML MDV 20 ML (09:48)
--- NOTE | 2025-03-22 10:34 | P.OP_ITS ---
Date of procedure: 03/22/25 Pre-op Diagnosis:: Symptomatic gallstones, chronic calculous cholecystitis Post-op Diagnosis:: Same Procedure performed:: Laparoscopic cholecystectomy Surgeon:: Ben Alvarado MD QUARRY MANAGER:: Rashad Gutiérrez Anesthesia: GETLuis Antonio Estimated blood loss (mL): 20 Operative findings:: She had a distended somewhat thickened gallbladder with multiple moderately large stones. Operative note:: Consent was obtained and patient was taken the operating room. She was positioned in a supine position. General anesthesia was induced via endotracheal tube. Abdomen was prepped and draped in the standard surgical f ashion. Infraumbilical skin incision was made and while performing abdominal wall lift Veress needle was inserted. CO2 pneumoperitoneum was achieved to 15 mmHg. 5 mm trocar was inserted. Some omental adhesions were encountered at the umbilicus. Working around these visualization was achieved of the upper abdomen. Apparently she has had a previous hysterectomy. She was positioned in reverse Trendelenburg and left side down. A couple of 5 mm trocars were inserted in the right upper abdomen. 11 mm trocar was inserted in the epigastrium. Gallbladder was grasped retracted anteriorly and superiorly over the dome of the liver. Infundibulum/Denise's pouch of the gallbladder was retracted anterior laterally. Blunt dissection was carried out the neck of the gallbladder bluntly incising the visceral peritoneum. Careful dissection was carried out ultimately identifying cystic duct and cystic artery and the critical view of safety. Cystic duct was isolated, multiple clipped, and erica ply divided. Cystic artery was carefully coagulated with HERNAN ultrasonic harmonic justin and divided. Gallbladder was dissected free from the liver in a retrograde fashion using ultrasonic harmonic justin. Gallbladder was placed within an Endo Catch retrieval device. It was removed from the peritoneal cavity via the epigastric trocar site which required extension of the fascial and skin incisions for delivery of the distended gallbladder with large stones. Gallbladder fossa and perihepatic space were inspected for hemostasis which was assured. Trocars were then removed as CO2 pneumoperitoneum was evacuated. Anterior fascia at the epigastric site was closed with multiple interrupted 0 Ethibond sutures. Local anesthetic was infiltrated. Skin incisions were closed with 4-0 Monocryl in a subcuticular fashion. Steri-Strips and dressings were applied. Condition: stable Disposition: PACU Complications:: None immediately apparent
--- NOTE | 2025-03-22 10:44 | P.PNANES_ITS ---
[facility] Anesthesia Record Part I Anesthesia Record I Intake, IV Amount: 1,000 Hydration: Adequate Estimated blood loss (mL): 10 Urine output (mL): 0 Blood Products used (#): none Blood Pressure: 123/68 SaO2: 93 Pulse Rate: 73 Airway Patency: Patent Respiratory Rate: 16 Temperature: 99.6 F Patient is:: Drowsy and Stable Stable to PACU at:: 10:40
[2025-03-22] MEDS: LACTATED RINGERS 1000ML 1,000 ML 25 ML IV (10:57)
[2025-03-22] MEDS: MORPHINE 2MG/ML SYRINGE 2 MG IV (11:00)
--- NOTE | 2025-03-22 14:57 | EXP.ANES.II ---
[facility] Anesthesia Record Part II Anesthesia Record Part II Discharge Time: 11:54 Destination: Surgical Day Care (OP Surgery) PACU nurse assessment reviewed?: Yes Patient Condition:: Good Anesthesia Complications:: None Swallowing reflex intact?: Yes Airway Patency: Patent Cyanosis?: No Blood Pressure: 129/74 SaO2: 96 Respiratory Rate: 18 Pulse Rate: 61 Temperature: 97.0 F Mental Status: Alert & Oriented Pain level:: 0 Nausea and/or vomitting:: None Intake, IV Amount: 0 Hydration: Adequate
== END 2025-03-22 12:29 | disposition home or self-care (01) ==
PROVIDERS: PCP Family Medicine; Visit Provider Surgery
PROC: 0FT44ZZ Resection of Gallbladder, Percutaneous Endoscopic Approach (ICD-10-PCS; CPT 47562; principal; 2025-03-22 09:45)
DX: K80.10 Calculus of gallbladder with chronic cholecystitis without obstruction (principal); I25.10 Atherosclerotic heart disease of native coronary artery without angina pectoris; E03.9 Hypothyroidism, unspecified; M10.9 Gout, unspecified; Z88.2 Allergy status to sulfonamides; Z88.1 Allergy status to other antibiotic agents; Z79.82 Long term (current) use of aspirin; Z79.890 Hormone replacement therapy; Z79.899 Other long term (current) drug therapy
CPT/HCPCS: 47562; 80053; 85025; 96374; J0690; J1100; J1885; J2003; J2250; J2270; J2405; J2704; J2795; J3010; J7120

== ENCOUNTER 2025-04-15 19:09 | Emergency (ER) | payer OTHER, SELFPAY ==
[2025-04-15 19:18] VITALS: BP 166/75; PULSE 66; RESP 16; TEMP 36.8; O2SAT 98; BMI 36.6
[2025-04-15 19:21] VITALS: BP 145/73; PULSE 66; RESP 16; TEMP 36.7; O2SAT 98
--- OUTSIDE RECORDS SUMMARY | 2025-04-15 19:27 | XMS_ITS | Encounter Summary ---
Author Organization [employer] ([place], [place], [place], [place]) Address [address] [place] [address] Care Team Providers Care Negotiator Name Role Phone Krystyna Elliott [facility] Primary Care Provider Nick Rasmussen PA-C Unavailable [phone] Lena Aguilera APRN Primary Care Provider [phone] Nimisha Ty PA-C Unavailable [phone] Encounter Details Date Type Department Care Team (Late st Contact Info) Description 12/17/2019 Transcribed Document [facility] [address] [place] [address] Provider, Audra Hargrove MD Social History Tobacco Use Types Packs/Day Years Used Date Smoking Tobacco: Never Assessed Comments Unknown Sex and Gender Information Value Date Recorded Sex Assigned at Not on file Legal Sex Female 6:57 PM CDT Gender Identity Not on file Sexual Orientation Not on file documented as of this encounter Miscellaneous Notes * Cerner Conversion Note - [facility] Beena Ogden MD - 12/17/2019 11:28 AM [...] and water are not available, use hand glass smoother. ? Change your dressing as told by [...] medicines you take. General instructions ??? Take fcab-vml-gvbajyr and prescription medicines only as told by [...] fried or sweet foods. ? Take an udnf-zir-imiosay or prescription medicines for constipation. ??? Do [...] 01/04/2006 Document Revised: 04/30/2018 Document Reviewed: 04/30/2018 [employer] Interactive Patient Education ? 2019 [employer]. Electronically signed by Audra Woodruff Conversion Coding Specialist Home Health Cerner at 11/21/2022 11:16 AM CDT documented in this encounter Plan of Treatment Upcoming Encounters Date Type Department Care Team (Late st Contact Info) Description 05/20/2025 8:30 AM EST Office Visit [facility] Orthopedics - [address] [place] [address] Nick Rasmussen PA-C [address] [place], [place] [id number] 08/19/2025 9:30 AM EST Appointment [facility] [address] [place] [address] documented as of this encounter Visit Diagnoses Not on filedocumented in this encounter Care Teams Negotiator Relationship Specialty Start Date End Date [facility] [place] [address] PCP - General 09/19/22 10/27/23 Lena Aguilera, COMB MACHINE OPERATOR [address] [place] [address] PCP - General Family Medicine 10/28/23 Nick Rasmussen PA-C [address] [place] [address] Orthopedic Surgery 08/07/23 Nimisha Ty PA-C [address] [place] [address] Physician Research Lab Assistant Orthopedic Surgery 02/05/24 documented as of this encounter
--- OUTSIDE RECORDS SUMMARY | 2025-04-15 19:27 | XMS_ITS | Encounter Summary ---
Author Organization [employer] ([place], [place], [place], [place]) Address [address] [place] [address] Care Team Providers Care Refinery Operator Helper Crude Unit Name Role Phone Krystyna Elliott [facility] Primary Care Provider Nick Rasmussen PA-C Unavailable [phone] Lena Aguilera APRN Primary Care Provider [phone] Nimisha Ty PA-C Unavailable [phone] Encounter Details Date Type Department Care Team (Late st Contact Info) Description 12/03/2019 Transcribed Document [facility] [address] [place] [address] Provider, Audra Hargrove MD Social History Tobacco Use Types Packs/Day Years Used Date Smoking Tobacco: Never Assessed Comments Unknown Sex and Gender Information Value Date Recorded Sex Assigned at Not on file Legal Sex Female 6:57 PM CDT Gender Identity Not on file Sexual Orientation Not on file documented as of this encounter Miscellaneous Notes * Cerner Conversion Note - [facility] Beena ProviderMD - 12/03/2019 9:36 [...] Source : Stated Height Entry Format : [place] Height, Feet : 5 ft(Converted to: 152 cm, 60 Inch) Height, Inches : 3 Inch(Converted to: 0 ft 3 Inch, 7.62 cm) Clinical Height : 160.02 cm Weight Source : Standing scale Weight Entry Format : [place] Clinical Dosing Weight : 100.91 kg Weight, Pounds : 222 lb Body Surface Area (BSA) : 2.02 m2 Body Mass Index : 39.4 kg/m2 (NC) [place] Body Weight : 52 kg ROSALINE MCKEON [...] ROSALINE MCKEON RN - 12/03/2019 8:36 EDT [place] Suicide Severity Rating Scale (C-SSRS) CSSRS Past [...] #2 Relationship : - Primary Language : Brazilian Communication Barrier : None ROSALINE MCKEON RN [...] Description 05/20/2025 8:30 AM EST Office Visit [facility] Orthopedics - [address] [place] [address] Nick Rasmussen PA-C [address] [place] [address] 08/19/2025 9:30 AM EST Appointment [facility] [address] [place] [address] documented as of this encounter Visit Diagnoses Not on filedocumented in this encounter Care Teams Refinery Operator Helper Crude Unit Relationship Specialty Start Date End Date Lexi [facility] [place] [address] PCP - General 09/19/22 10/27/23 Lena Aguilera APRN [address] [address] PCP - General Family Medicine 10/28/23 Nick Rasmussen PA-C [address] [place], [place] [id number] Orthopedic Surgery 08/07/23 Nimisha Ty PA-C [address] [place] [address] Physician District Home Economics Agent Orthopedic Surgery 02/05/24 documented as of this encounter
--- OUTSIDE RECORDS SUMMARY | 2025-04-15 19:27 | XMS_ITS | Encounter Summary ---
Author Organization [employer] ([place], [place], [place], [place]) Address [address] [place] [address] Care Team Providers Care Test Borer Name Role Phone Krystyna Elliott [facility] Primary Care Provider Nick Rasmussen PA-C Unavailable [phone] Lena Aguilera APRN Primary Care Provider [phone] Nimisha Ty PA-C Unavailable [phone] Encounter Details Date Type Department Care Team (Late st Contact Info) Description 12/03/2019 Transcribed Document [facility] [address] [place] [address] Provider, Audra Hargrove MD Social [...] [facility] Beena ProviderMD - 12/03/2019 9:50 AM EDT Patient: ANISA KATZ Age: 54 Years Sex: Female : 1965 Chief Complaint Right Knee Pain Primary Care Provider NEYDA JOINER (REF), GAS COMPRESSOR TURBINE OPERATOR-FAM History of Present Illness This patient [...] # 1.08 K/uL (Low) 12/03/2019 08:43 EDT [place] % 7.5 % 12/03/2019 08:43 EDT [place] # 0.41 K/uL 12/03/2019 08:43 EDT Eos % 4.6 % 12/03/2019 08:43 EDT Eos # 0.25 K/uL 12/03/2019 08:43 EDT Baso % 0.7 % 12/03/2019 08:43 EDT Baso # 0.04 K/uL 12/03/2019 08:43 EDT Slide Review No 12/03/2019 08:43 EDT IG# 0 x10(3)/uL 12/03/2019 08:43 EDT IG% 0 % 12/03/2019 08:43 EDT Electronically signed by Ranjan [facility] Conversion Housing Inspectors Cerner at 11/21/2022 11:15 AM CDT documented in this encounter Plan of Treatment Upcoming Encounters Date Type Department Care Team (Late st Contact Info) Description 05/20/2025 8:30 AM EST Office Visit [facility] Orthopedics - [address] [place] [address] Nick Rasmussen PA-C [address] [place] [address] 08/19/2025 9:30 AM EST Appointment [facility] [address] [place] [address] documented as of this encounter Visit Diagnoses Not on filedocumented in this encounter Care Teams Test Borer Relationship Specialty Start Date End Date [facility] [address] [address] PCP - General 09/19/22 10/27/23 Lena Aguilera, VISITOR SERVICES ASSISTANT [address] [place] [address] PCP - General Family Medicine 10/28/23 Nick Rasmussen PA-C [address] [place] [address] Orthopedic Surgery 08/07/23 Nimisha Ty PA-C [address] [place] [address] Physician Nca Certified Concierge Orthopedic Surgery 02/05/24 documented as of this encounter
--- OUTSIDE RECORDS SUMMARY | 2025-04-15 19:27 | XMS_ITS | Encounter Summary ---
Author Organization [employer] ([place], [place], [place], [place]) Address [address] [place] [address] Care Team Providers Care Resaw Operator Name Role Phone Nick Rasmussen PA-C Unavailable [phone] Lena Aguilera APRN Primary Care Provider [phone] Nimisha Ty PA-C Unavailable [phone] Reason for Referral * Mammography (Routine) - New Request Specialty Diagnoses / Procedures Referred By Kai robins Referred To Contact Radiology Diagnoses Screening mammogram for breast cancer Procedures MM digital mammo screen with phyllis bilateral Lena Aguilera APRN [address] [place] [address] Phone: tel: fax: [facility] [address] [place] [address] Phone: tel: fax: Referral ID Status Reason Start Date Expiration Date V isits Requested Visits Authorized [id number] New Request 08/12/2024 08/12/2025 1 1 Encounter Details Date Type Department Care Team (Late st Contact Info) Description 08/12/2024 Outside Orders [facility] Scheduling [address] [place] [address] Lena Aguilera APRN [address] [place] [address] Screening mammogram for breast cancer [...] Date Vijay rded Speak language other than Ecuadorean at home Not on file 07/19/2023 Want [...] Description 05/20/2025 8:30 AM EST Office Visit [facility] Orthopedics - [address] [place] [address] Nick Rasmussen PA-C [address] [place] [address] 08/19/2025 9:30 AM EST Appointment [facility] [address] [facility] [address] [place] [address] documented as of this encounter [...] the next mammogram. At our facility, a nisqually marker is positioned over a visible skin [...] cancer documented in this encounter Care Teams Resaw Operator Relationship Specialty Start Date End Date Lena Aguilera APRN [address] [place] [address] PCP - General Family Medicine 4/29/24 Nick Rasmussen PA-C [address] [place] [address] Orthopedic Surgery 08/07/23 Nimisha Ty PA-C [address] [place] [address] Physician Cna Instructor Orthopedic Surgery 02/05/24 documented as of this encounter
--- OUTSIDE RECORDS SUMMARY | 2025-04-15 19:27 | XMS_ITS | Encounter Summary ---
Author Organization [employer] ([place], [place], [place], [place]) Address [address] [place] [address] Care Team Providers Care Informaticist Name Role Phone Krystyna Elliott [facility] Primary Care Provider Nick Rasmussen PA-C Unavailable [phone] Lena Aguilera APRN Primary Care Provider [phone] Nimisha Ty PA-C Unavailable [phone] Encounter Details Date Type Department Care Team (Late st Contact Info) Description 12/17/2019 Transcribed Document [facility] 1 [place] [address] Provider, Audra Hargrove MD Social History Tobacco Use Types Packs/Day Years Used Date Smoking Tobacco: Never Assessed Comments Unknown Sex and Gender Information Value Date Recorded Sex Assigned at Not on file Legal Sex Female 6:57 PM CDT Gender Identity Not on file Sexual Orientation Not on file documented as of this encounter Miscellaneous Notes * Cerner Conversion Note - [facility] Beena ProviderMD - 12/17/2019 12:37 PM EDT [facility] [address] [place] [address] ANISA KATZ :1965 Visit Time:12/17/2019 What to do next Your Diagnosis Unilateral primary osteoarthritis, right knee, Unilateral primary osteoarthritis, right knee Instructions From Your Care Team You have a prescription for [place] 7.5mg 1 tablet every 6 hours as needed for pain, your next dose is due after 4:30pm refer to discharge orders/orthopedic procedures form for detailed instructions. Follow-Up Appointments Follow Up with DRAGAN FLAHERTY MD-ORT When 12/30/2019 02:15 PM EDT Comments Appointment has been made Where: [address] [place] [address]- Medications What How Much When Instructions Next [...] and water are not available, use hand software clerk. ? Change your dressing as told by [...] medicines you take. General instructions ??? Take fsxp-aem-okrdwuk and prescription medicines only as told by [...] fried or sweet foods. ? Take an hpvf-iyd-dkauqsw or prescription medicines for constipation. ??? Do [...] 01/04/2006 Document Revised: 04/30/2018 Document Reviewed: 04/30/2018 Keenko Interactive Patient Education ?? 2020 Swivel. acetaminophen and hydrocodone (a SEET a MIN oh fen and imer benton KOJoel done) Hycet, Lorcet, [place], Verdrocet, Vicodin, Xodol, Zamicet What is the [...] may report side effects to FDA at 0-934-JOT-3462. What other drugs will affect acetaminophen and [...] affect acetaminophen and hydrocodone, including prescription and emzt-oof-leqhpzd medicines, vitamins, and herbal products. Not all [...] to ensure that the information provided by ALOHA. ('Multum') is accurate, up-to-date, and complete, but no guarantee is made to that effect. Drug information contained herein may be time sensitive. Stipple information has been compiled for use by healthcare practitioners and consumers in the [place] and therefore Stipple does not warrant that uses outside of the [place] are appropriate, unless specifically indicated otherwise. Nexthinks drug information does not endorse drugs, diagnose patients or recommend therapy. Nexthinks drug information is an informational resource designed [...] effective or appropriate for any given patient. Stipple does not assume any responsibility for any aspect of healthcare administered with the aid of information Stipple provides. The information contained herein is not intended to cover all possible uses, directions, precautions, warnings, drug interactions, allergic reactions, or adverse effects. If you have questions about the drugs you are taking, check with your doctor, nurse or pharmacist. Copyright 6188-9237 ALOHA. Version: 16.. Revision Date: 07/22/2019. acetaminophen and hydrocodone (a SEET a MIN oh fen and imer droe KOE done) Hycet, Lorcet, Indian[place], Verdrocet, Vicodin, Xodol, Zamicet What is the [...] may report side effects to FDA at 0-791-ZXY-8734. What other drugs will affect acetaminophen and [...] affect acetaminophen and hydrocodone, including prescription and mehu-dwj-rquofvq medicines, vitamins, and herbal products. Not all [...] to ensure that the information provided by ALOHA. ('Multum') is accurate, up-to-date, and complete, but no guarantee is made to that effect. Drug information contained herein may be time sensitive. Stipple information has been compiled for use by healthcare practitioners and consumers in the [place] and therefore Stipple does not warrant that uses outside of the [place] are appropriate, unless specifically indicated otherwise. Nexthinks drug information does not endorse drugs, diagnose patients or recommend therapy. Medsurant Monitoring drug information is an informational resource designed [...] effective or appropriate for any given patient. Stipple does not assume any responsibility for any aspect of healthcare administered with the aid of information Stipple provides. The information contained herein is not intended to cover all possible uses, directions, precautions, warnings, drug interactions, allergic reactions, or adverse effects. If you have questions about the drugs you are taking, check with your doctor, nurse or pharmacist. Copyright 8650-0758 ALOHA. Version: 16.01. Revision Date: 07/22/2019. Emergency Awareness [...] Assistance with quitting is available by contacting 1-203-NBBG-NOW. This is a free resource providing counseling, [...] range between ( 1.0 and 7.0 ) Bent #: 0.41 K/uL -- Normal range between ( 0.24 and 0.82 ) Eos #: 0.25 K/uL -- Normal range between ( 0.04 and 0.54 ) Bent %: 7.5 % -- Normal range between [...] was given the opportunity to ask questions. Patient/Legal Stenographer Name: Patient/Legal Stenographer Signature: Relationship to Patient: Clinician/Hospital Legal Stenographer Signature: Date: documented in this encounter Plan of Treatment Upcoming Encounters Date Type Department Care Team (Late st Contact Info) Description 05/20/2025 8:30 AM EST Office Visit [facility] Orthopedics - [address] [place] [address] Nick Rasmussen PA-C [address] [place] [address] 08/19/2025 9:30 AM EST Appointment [facility] [address] [address] [place] [address] documented as of this encounter Visit Diagnoses Not on filedocumented in this encounter Care Teams Informaticist Relationship Specialty Start Date End Date [facility] [place] [address] PCP - General 09/19/22 10/27/23 Lena Aguilera APRN [address] [place] [address] PCP - General Family Medicine 10/28/23 Nick Rasmussen PA-C [address] [place] [address] Orthopedic Surgery 08/07/23 Nimisha Ty PA-C [address] [place] [address] Physician Systems Lead Orthopedic Surgery 02/05/24 documented as of this encounter
--- OUTSIDE RECORDS SUMMARY | 2025-04-15 19:27 | XMS_ITS | Clinical Summary ---
Author Organization [employer] ([place], [place], [place], [place]) Address [address] [place] [address] Care Team Providers Care Electronic Prepress System Operator Name Role Phone Nick Rasmussen PA-C Unavailable [phone] Lena Aguilera APRN Primary Care Provider Nimisha Ty PA-C Unavailable [phone] Allergies Active Allergy Reactions Criticality Noted Date [...] Description 02/11/2025 10:00 AM EDT Office Visit [facility] Orthopedics - [facility] [address] [place] [address] Nick Rasmussen PA-C Primary osteoarthritis of left knee (Primary Dx); Primary osteoarthritis of right knee from Last 3 Months Family History Medical [...] Date Vijay rded Speak language other than Rwandan at home Not on file 07/19/2023 Want [...] Description 05/20/2025 8:30 AM EST Office Visit [facility] Orthopedics - [address] [place] [address] Nick Rasmussen PA-C [address] [place] [address] 08/19/2025 9:30 AM EST Appointment [facility] [address] [facility] [address] [place] [address] Health Maintenance Due Date Last [...] series) 2023 COVID-19 VACCINE (1 - season) 2025 Influenza Vaccine (#1) 2025 Tobacco Cessation Counseling and Screening (12+) 02/11/2026 02/11/2025 Breast Cancer Screening 09/10/2026 09/10/2024, 08/13 Colonoscopy 10/27/2028 10/28/2023 Colorectal Cancer Screening 10/27/2028 Procedures Procedure Name Priority Date/Time Associated Diagnosis Comments MM DIGITAL MAMMO DIAGNOSTIC WITH JJ LEFT Routine 09/10/2024 11:18 AM EDT Abnormal mammogram from Last 3 Months or Most Recently Relevant to Health Maintenance Results * (ABNORMAL) MM digital mammo diagnostic with [...] recommended imaging studies/procedures. At our facility, a kivalina marker is positioned over a visible skin [...] of breast cancer COMPARISON STUDY: [facility] 08/13/2024 FINDINGS: Craniocaudal and mediolateral oblique images [...] Most Recently Relevant to Health Maintenance Insurance [facility] Care Teams Electronic Prepress System Operator Relationship Specialty Start Date End Date Lena Aguilera APRN [address] [place] [address] PCP - General Family Medicine 10/28/23 Nick Rasmussen PA-C [address] [place] [address] Orthopedic Surgery 08/07/23 Nimisha Ty PA-C [address] [place] [address] Physician Warehouse Laborer Orthopedic Surgery 02/05/24
--- OUTSIDE RECORDS SUMMARY | 2025-04-15 19:27 | XMS_ITS | Encounter Summary ---
Author Organization [employer] ([place], [place], [place], [place]) Address [address] [place] [address] Care Team Providers Care Windshield Wiper Repairer Name Role Phone Krystyna Elliott [facility] Primary Care Provider Nick Rasmussen PA-C Unavailable Lena Aguilera APRN Primary Care Provider [phone] Nimisha Ty PA-C Unavailable [phone] Encounter Details Date Type Department Care Team (Late st Contact Info) Description 12/17/2019 Transcribed Document [facility] 1 [place] [address] Provider, Audra Hargrove MD Social History Tobacco Use Types Packs/Day Years Used Date Smoking Tobacco: Never Assessed Comments Unknown Sex and Gender Information Value Date Recorded Sex Assigned at Not on file Legal Sex Female 6:57 PM CDT Gender Identity Not on file Sexual Orientation Not on file documented as of this encounter Miscellaneous Notes * Cerner Conversion Note - [facility] Beena ProviderMD - 12/17/2019 10:36 AM EDT [facility] Main OR PostOp Summary Primary Physician: DRAGAN FLAHERTY MD-ORT Finalized Date/Time: 12/17/19 11:48:29 Pt. Name: ANISA KATZISE /Sex: 1965 Female Med Rec #: [id number] Physician: DRAGAN FLAHERTY MD-ORT Financial #: [id number] Pt. Type: O Room/Bed: [facility]/4 Admit/Disch: 12/17/19 04:47:00 - Institution: [facility] Main OR PostOp Case Times Entry 1 In PACU II 12/17/19 10:40:00 Ready for PACU II 12/17/19 11:48:00 Discharge Discharge from PACU 12/17/19 11:48:00 II Last Modified By: Erin Orta RN 12/17/19 11:48:22 [facility] Main OR PostOp Case Times Audit 12/17/19 11:48:22 Rag Grader: [email or web address] Modifier: HELFEP 1 <+> Ready for PACU II Discharge 1 <*> In PACU II 12/17/19 10:00:00 1 <+> Discharge from PACU II Finalized By: Erin Orta RN Document Signatures Signed By: Erin Orta RN 12/17/19 11:48 documented in this encounter Plan of Treatment Upcoming Encounters Date Type Department Care Team (Late st Contact Info) Description 05/20/2025 8:30 AM EST Office Visit [facility] Orthopedics - [address] [place] [address] Nick Rasmussen PA-C [address] [place] [address] 08/19/2025 9:30 AM EST Appointment [facility] Breast [facility] [address] [facility] [address] [place] [address] documented as of this encounter Visit Diagnoses Not on filedocumented in this encounter Care Teams Windshield Wiper Repairer Relationship Specialty Start Date End Date Krystyna Elliott [facility] [address] [address] PCP - General 09/19/22 10/27/23 Lena Aguilera, KALIN [address] [place] [address] PCP - General Family Medicine 10/28/23 Nick Rasmussen PA-C [address] [place] [address] Orthopedic Surgery 08/07/23 Nimisha Ty PA-C [address] [place] [address] Physician Plate Glass Installer Orthopedic Surgery 02/05/24 documented as of this encounter
--- OUTSIDE RECORDS SUMMARY | 2025-04-15 19:27 | XMS_ITS | Encounter Summary ---
Author Organization [employer] ([place], [place], [place], [place]) Address [address] [place] [address] Care Team Providers Care Chief Console Operator Name Role Phone Krystyna Elliott [facility] Primary Care Provider Nick Rasmussen PA-C Unavailable [phone] Lena Aguilera APRN Primary Care Provider [phone] Nimisha Ty PA-C Unavailable Encounter Details Date Type Department Care Team (Late st Contact Info) Description 12/17/2019 Transcribed Document [facility] [address] [place] [address] Provider, Audra Hargrove MD Social History Tobacco Use Types Packs/Day Years Used Date Smoking Tobacco: Never Assessed Comments Unknown Sex and Gender Information Value Date Recorded Sex Assigned at Not on file Legal Sex Female 6:57 PM CDT Gender Identity Not on file Sexual Orientation Not on file documented as of this encounter Miscellaneous Notes * Cerner Conversion Note - [facility] Beena Ogden MD - 12/17/2019 10:59 AM EDT DATE OF PROCEDURE: 12/17/2019 SURGEON: Rell Del Cid MD PREOPERATIVE DIAGNOSIS: Right knee medial meniscus 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 POSTOPERATIVE DIAGNOSIS: Right knee medial meniscus 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 PROCEDURE PERFORMED: Right knee diagnostic arthroscopy with partial medial meniscectomy. CASINO FLOOR WALKER: Mary Valencia CFA ANESTHESIA: General. ESTIMATED BLOOD [...] tolerated the procedure well without any complications. /[id number] Rell Sylvain Del Cid MD ASC/AQ / ASC / MODL /[id number] documented in this encounter Plan of Treatment Upcoming Encounters Date Type Department Care Team (Late st Contact Info) Description 05/20/2025 8:30 AM EST Office Visit [facility] Orthopedics - [address] [place] [address] Nick Rasmussen PA-C [address] [place] [address] 08/19/2025 9:30 AM EST Appointment [facility] Breast [facility] [address] [facility] [address] [place] [address] documented as of this encounter Visit Diagnoses Not on filedocumented in this encounter Care Teams Chief Console Operator Relationship Specialty Start Date End Date [facility] [address] [place] [address] PCP - General 09/19/22 10/27/23 Lena Aguilera APRN [address] [place] [address] PCP - General Family Medicine 10/28/23 Nick Rasmussen PA-C [address] [place] [address] Orthopedic Surgery 08/07/23 Nimisha Ty PA-C [address] [place] [address] Physician Ground Crewman Aircraft Support Orthopedic Surgery 02/05/24 documented as of this encounter
--- OUTSIDE RECORDS SUMMARY | 2025-04-15 19:27 | XMS_ITS | Encounter Summary ---
Author Organization [employer] ([place], [place], [place], [place]) Address [address] [place] [address] Care Team Providers Care Asset Protection Associate Name Role Phone Krystyna Elliott [facility] Primary Care Provider Nick Rasmussen PA-C Unavailable [phone] Lena Aguilera APRN Primary Care Provider [phone] Nimisha Ty PA-C Unavailable [phone] Encounter Details Date Type Department Care Team (Late st Contact Info) Description 12/17/2019 Transcribed Document [facility] [address] [place] [address] Provider, Audra Hargrove MD Social [...] WALLISE /Sex: 1965 Female Med Rec #: [id number] Physician: DRAGAN FLAHERTY MD-ORT Financial #: [id number] Pt. Type: O Room/Bed: [facility]/4 Admit/Disch: 12/17/19 04:47:00 - Institution[facility] [place] PACU Case Times Entry 1 [...] Description 05/20/2025 8:30 AM EST Office Visit [facility] Orthopedics - [facility] [address] [place] [address] Nick Rasmussen PA-C [address] [place] [address] 08/19/2025 9:30 AM EST Appointment [facility] [address] [facility] [address] [place] [address] documented as of this encounter Visit Diagnoses Not on filedocumented in this encounter Care Teams Asset Protection Associate Relationship Specialty Start Date End Date [facility] [address] [address] PCP - General 09/19/22 10/27/23 Lena Aguilera APRN [address] [place] [address] [place] [address] PCP - General Family Medicine 10/28/23 Nick Rasmussen PA-C [address] [place] [address] Orthopedic Surgery 08/07/23 Nimisha Ty PA-C [address] [place] [address] Physician Archeologist Orthopedic Surgery 02/05/24 documented as of this encounter
--- OUTSIDE RECORDS SUMMARY | 2025-04-15 19:27 | XMS_ITS | Encounter Summary ---
Author Organization [employer] ([place], [place], [place], [place]) Address [address] [place] [address] Care Team Providers Care Development Specialist Name Role Phone Krystyna Elliott [facility] Primary Care Provider Nick Rasmussen PA-C Unavailable [phone] Lena Aguilera APRN Primary Care Provider [phone] Nimisha Ty PA-C Unavailable [phone] Encounter Details Date Type Department Care Team (Late st Contact Info) Description 12/17/2019 Transcribed Document [facility] 1 [place] [address] Provider, Audra Hargrove MD Social History Tobacco Use Types Packs/Day Years Used Date Smoking Tobacco: Never Assessed Comments Unknown Sex and Gender Information Value Date Recorded Sex Assigned at Not on file Legal Sex Female 6:57 PM CDT Gender Identity Not on file Sexual Orientation Not on file documented as of this encounter Miscellaneous Notes * Cerner Conversion Note - [facility] Beena ProviderMD - 12/17/2019 12:22 PM EDT [facility] [address] [place] [address] ANISA KATZ :1965 Visit Time:12/17/2019 What to do next Your Diagnosis Unilateral primary osteoarthritis, right knee, Unilateral primary osteoarthritis, right knee Instructions From Your Care Team You have a prescription for [place] 7.5mg 1 tablet every 6 hours as needed for pain, your next dose is due after 4:30pm refer to discharge orders/orthopedic procedures form for detailed instructions. Follow-Up Appointments Follow Up with DRAGAN FLAHERTY MD-ORT When 12/30/2019 02:15 PM EDT Comments Appointment has been made Where: [address] [place] [address]- Medications What How Much When Instructions Next [...] and water are not available, use hand manager trading. ? Change your dressing as told by [...] medicines you take. General instructions ??? Take kdhy-tix-ayrjwis and prescription medicines only as told by [...] fried or sweet foods. ? Take an oxst-mro-tvqipvh or prescription medicines for constipation. ??? Do [...] 01/04/2006 Document Revised: 04/30/2018 Document Reviewed: 04/30/2018 CloudSwitch Interactive Patient Education ?? 2020 [employer] Technologies. acetaminophen and hydrocodone (a SEET a MIN oh fen and imer benton KOJoel done) Hycet, Lorcet, [place], Verdrocet, Vicodin, Xodol, Zamicet What is the [...] may report side effects to FDA at 5-210-YFC-4555. What other drugs will affect acetaminophen and [...] affect acetaminophen and hydrocodone, including prescription and vdbe-vdh-xdnmxuh medicines, vitamins, and herbal products. Not all [...] to ensure that the information provided by Soleil [employer]ulation. ('Multum') is accurate, up-to-date, and complete, but no guarantee is made to that effect. Drug information contained herein may be time sensitive. Instilling Values information has been compiled for use by healthcare practitioners and consumers in the [place] and therefore Instilling Values does not warrant that uses outside of the [place] are appropriate, unless specifically indicated otherwise. Repairogens drug information does not endorse drugs, diagnose patients or recommend therapy. Repairogens drug information is an informational resource designed [...] effective or appropriate for any given patient. Instilling Values does not assume any responsibility for any aspect of healthcare administered with the aid of information Instilling Values provides. The information contained herein is not intended to cover all possible uses, directions, precautions, warnings, drug interactions, allergic reactions, or adverse effects. If you have questions about the drugs you are taking, check with your doctor, nurse or pharmacist. Copyright 3106-1627 Soleil Insulation. Version: 16.. Revision Date: 07/22/2019. acetaminophen and hydrocodone (a SEET a MIN oh fen and imer droe KOE done) Hycet, Lorcet, [place], Verdrocet, Vicodin, Xodol, Zamicet What is the [...] may report side effects to FDA at 1-936-DCZ-2286. What other drugs will affect acetaminophen and [...] affect acetaminophen and hydrocodone, including prescription and aefn-tju-kieprol medicines, vitamins, and herbal products. Not all [...] to ensure that the information provided by S[employer]il Ins[employer]. ('Multum') is accurate, up-to-date, and complete, but no guarantee is made to that effect. Drug information contained herein may be time sensitive. Instilling Values information has been compiled for use by healthcare practitioners and consumers in the [place] and therefore Instilling Values does not warrant that uses outside of the [place] are appropriate, unless specifically indicated otherwise. Repairogens drug information does not endorse drugs, diagnose patients or recommend therapy. Greenhouse Apps drug information is an informational resource designed [...] effective or appropriate for any given patient. Instilling Values does not assume any responsibility for any aspect of healthcare administered with the aid of information Instilling Values provides. The information contained herein is not intended to cover all possible uses, directions, precautions, warnings, drug interactions, allergic reactions, or adverse effects. If you have questions about the drugs you are taking, check with your doctor, nurse or pharmacist. Copyright 8750-1337 Soleil Insulation. Version: 16.01. Revision Date: 07/22/2019. Emergency Awareness [...] Assistance with quitting is available by contacting 8-438-RFYF-NOW. This is a free resource providing counseling, [...] range between ( 1.0 and 7.0 ) Lamoure #: 0.41 K/uL -- Normal range between ( 0.24 and 0.82 ) Eos #: 0.25 K/uL -- Normal range between ( 0.04 and 0.54 ) Lamoure %: 7.5 % -- Normal range between [...] was given the opportunity to ask questions. Patient/Marine Service Station Attendant Name: Patient/Marine Service Station Attendant Signature: Relationship to Patient: Clinician/Hospital Marine Service Station Attendant Signature: Date: documented in this encounter Plan of Treatment Upcoming Encounters Date Type Department Care Team (Late st Contact Info) Description 05/20/2025 8:30 AM EST Office Visit [facility] Orthopedics - [address] [place] [address] Nick Rasmussen PA-C [address] [place] [address] 08/19/2025 9:30 AM EST Appointment [facility] [address] [facility] [address] [place] [address] documented as of this encounter Visit Diagnoses Not on filedocumented in this encounter Care Teams Development Specialist Relationship Specialty Start Date End [place] [address] PCP - General 09/19/22 10/27/23 Lena Aguilera APRN [address] [place] [address] PCP - General Family Medicine 10/28/23 Nick Rasmussen PA-C [address] [place] [address] Orthopedic Surgery 08/07/23 Nimisha Ty PA-C [address] [place] [address] Physician Medicinal Plant Picker Orthopedic Surgery 02/05/24 documented as of this encounter
--- OUTSIDE RECORDS SUMMARY | 2025-04-15 19:27 | XMS_ITS | Encounter Summary ---
Author Organization [email or web address] ([place], [place], [place], [place]) Address [address] [place] [address] Care Team Providers Care Outreach Rep Name Role Phone Krystyna Elliott [facility] Primary Care Provider Nick Rasmussen PA-C Unavailable [phone] Lena Aguilera APRN Primary Care Provider [phone] Nimisha Ty PA-C Unavailable [phone] Encounter Details Date Type Department Care Team (Late st Contact Info) Description 12/17/2019 Transcribed Document [facility] [address] [place] [address] Provider, Audra Hargrove MD Social [...] KATZISE /Sex: 1965 Female Med Rec #: [id number] Physician: DRAGAN FLAHERTY MD-ORT Financial #: [id number] Pt. Type: O Room/Bed: [facility]/4 Admit/Disch: 12/17/19 04:47:00 - Institution: [facility] PreOp Case Times Entry 1 In Preop 12/17/19 06:50:00 Ready for Holding n/a Room Patient Ready for 12/17/19 08:36:00 Surgery Patient Out of Preop 12/17/19 09:30:00 Patient Out of n/a Holding Room Last Modified By: ELIGIO SCALES 12/17/19 10:46:47 [facility] PreOp Case Times Audit 12/17/19 10:46:47 Back Hand: SHALINI Modifier: [email or web address] <+> 1 Patient Out of Preop 12/17/19 08:36:21 Back Hand: SHALINI Modifier: [email or web address] <+> 1 Patient Ready for Surgery Finalized By: ELIGIO SCALES Document Signatures Signed By: ELIGIO SCALES 12/17/19 10:46 Electronically signed by Ran[facility] Conversion Pattern Technician Cerner at 11/21/2022 11:15 AM CDT documented in this encounter Plan of Treatment Upcoming Encounters Date Type Department Care Team (Late st Contact Info) Description 05/20/2025 8:30 AM EST Office Visit [facility] Orthopedics - [address] [place] [address] Nick Rasmussen PA-C [address] [place] [address] 08/19/2025 9:30 AM EST Appointment [facility] Breast [facility] [address] [facility] [address] [place] [address] documented as of this encounter Visit Diagnoses Not on filedocumented in this encounter Care Teams Outreach Rep Relationship Specialty Start Date End Date Krystyna Elliott [facility] [address] [address] PCP - General 09/19/22 10/27/23 Lena Aguilera APRN [address] [place] [address] [place] [address] PCP - General Family Medicine 10/28/23 Nick Rasmussen PA-C [address] [place], [place] [id number] Orthopedic Surgery 08/07/23 Nimisha Ty PA-C [address] [place] [address] Physician Newspaper Photo Editor Orthopedic Surgery 02/05/24 documented as of this encounter
--- OUTSIDE RECORDS SUMMARY | 2025-04-15 19:27 | XMS_ITS | Clinical Summary ---
[facility] Organization [facility] Address [address] [place] [address] Care Team Providers Care Mat Roller Name Role Phone Provider, No Known Primary [...] 10/23/2013 ZOSTER VACCINE (1 of 2) 10/23/2013 INFLUENZA VACCINE 01/29/2025 MAMMOGRAM 09/10/2026 09/10/2024, 08/29, 08/13/2024, Additional history exists [place] [address] [place] [address] Care Teams Mat Roller Relationship Specialty Start Date End Date Provider, [place] [address] PCP - General 12/11/24
--- OUTSIDE RECORDS SUMMARY | 2025-04-15 19:27 | XMS_ITS | Referral Summary ---
Author Organization [employer] ([place], [place], [place], [place]) Address [address] [place] [address] Care Team Providers Care Health Care Facility Administrator Name Role Phone Nick Rasmussen PA-C Unavailable [phone] Lena Aguilera APRN Primary Care Provider [phone] Nimisha Ty PA-C Unavailable [phone] Encounters Date Type Department Care Team Description 02/11/2025 10:00 AM EDT Office Visit [facility] Orthopedics - [address] [place] [address] Nick Rasmussen PA-C Primary osteoarthritis of left knee (Primary Dx); Primary osteoarthritis of right knee from Last 3 Months Allergies Active Allergy [...] Date Vijay rded Speak language other than Puerto Rican at home Not on file 07/19/2023 Want [...] Description 05/20/2025 8:30 AM EST Office Visit [facility] Orthopedics - [address] [place] [address] Nick Rasmussen PA-C [address] [place], [place] [id number] 08/19/2025 9:30 AM EST Appointment [facility] [address] [facility] [address] [place] [address] Procedures Procedure Name Priority Date/Time [...] recommended imaging studies/procedures. At our facility, a [place] marker is positioned over a visible skin [...] family history of breast cancer COMPARISON STUDY: [facility] 08/13/2024 FINDINGS: Craniocaudal and mediolateral [...] computer aided detection (CAD). Krissy Boss MD IM MAMMOGRAPHY ORDERABLES Final Result from Last 3 Months or Most Recently Relevant to Health Maintenance Insurance [facility] Care Teams Health Care Facility Administrator Relationship Specialty Start Date End Date Lena Aguilera APRN [address] [place] [address] PCP - General Family Medicine 10/28/23 Nick Rasmussen PA-C [address] [place] [address] Orthopedic Surgery 08/07/23 Nimisha Ty PA-C [address] [place] [address] Physician Batchmaker Orthopedic Surgery 02/05/24
--- OUTSIDE RECORDS SUMMARY | 2025-04-15 19:27 | XMS_ITS | Encounter Summary ---
Author Organization [employer] ([place], [place], [place], [place]) Address [address] [place] [address] Care Team Providers Care Educational/Development Assistant Name Role Phone Krystyna Elliott [facility] Primary Care Provider Nick Rasmussen PA-C Unavailable [phone] Lena Aguilera APRN Primary Care Provider [phone] Nimisha Ty PA-C Unavailable [phone] Encounter Details Date Type Department Care Team (Late st Contact Info) Description 12/17/2019 Transcribed Document [facility] [address] [place] [address] Provider, Audra Hargrove MD [...] Notes * Cerner Conversion Note - [facility] ProviderMD - 12/17/2019 9:10 AM EDT Pre Procedure Adult Entered On: 12/17/2019 8:16 EDT Performed On: 12/17/2019 8:10 EDT by Paola Lacy RN Height and Weight, Clinical Dosing Height Source : Stated Height Entry Format : [place] Height, Feet : 5 ft(Converted to: 152 cm, 60 Inch) Height, Inches : 3 Inch(Converted to: 0 ft 3 Inch, 7.62 cm) Clinical Height : 160.02 cm Weight Source : Standing scale Weight Entry Format : [place]ill Clinical Dosing Weight : 101.36 kg Weight, Pounds : 223 lb Body Surface Area (BSA) : 2.03 m2 Body Mass Index : 39.6 kg/m2 (HI) [place] Body Weight : 52 kg Paola Lacy RN - 12/17/2019 8:10 EDT Health Histories Smoking Status : Never (less than 100 in lifetime; none in last 30 days) Smokeless Tobacco Status : Never Paola Lacy RN - 12/17/2019 8:10 EDT Social History (As Of: 12/17/2019 08:16:21 EDT) Tobacco: Smoking Status Never smoker. (Last Updated: 12/17/2016 16:52:07 EDT by Lena Vaelncia RN) Never (less than 100 in lifetime) [...] Where was the COVID-19 Testing completed? : [facility] Where are the test results? : [...] Paola Lacy RN - 12/17/2019 8:10 EDT [place] Suicide Severity Rating Scale (C-SSRS) CSSRS Past [...] Obtained From : Patient Primary Language : Zambian Preferred Communication Mode : Verbal Communication Barrier [...] Scale Risk Level : 25-45 Medium Risk [place] Fall Interventions : Adequate lighting, Bed in [...] Description 05/20/2025 8:30 AM EST Office Visit [facility] Orthopedics - [address] [place] [place] [address] Nick Rasmussen PA-C [address] [place] [address] 08/19/2025 9:30 AM EST Appointment [facility] [address] [facility] [address] [place] [address] documented as of this encounter Visit Diagnoses Not on filedocumented in this encounter Care Teams Educational/Development Assistant Relationship Specialty Start Date End Date [facility] [place] [address] PCP - General 09/19/22 10/27/23 Lena Aguilera, KALIN [address] [place] [address] PCP - General Family Medicine 10/28/23 Nick Rasmussen PA-C [address] [place] [address] Orthopedic Surgery 08/07/23 Nimisha Ty PA-C [address] [place], [place] [id number] Physician Director Of Community Center Orthopedic Surgery 02/05/24 documented as of this encounter
--- OUTSIDE RECORDS SUMMARY | 2025-04-15 19:27 | XMS_ITS | Encounter Summary ---
Author Organization [employer] ([place], [place], [place], [place]) Address [address] [place] [address] Care Team Providers Care Roving Sizer Name Role Phone Krystyna Elliott [facility] Primary Care Provider Nick Rasmussen PA-C Unavailable Lena Aguilera APRN Primary Care Provider [phone] Nimisha Ty PA-C Unavailable [phone] Encounter Details Date Type Department Care Team (Late st Contact Info) Description 12/17/2019 Transcribed Document [facility] 1 [place] [address] Provider, Audra Hargrove MD Social History Tobacco Use Types Packs/Day Years Used Date Smoking Tobacco: Never Assessed Comments Unknown Sex and Gender Information Value Date Recorded Sex Assigned at Not on file Legal Sex Female 6:57 PM CDT Gender Identity Not on file Sexual Orientation Not on file documented as of this encounter Miscellaneous Notes * Cerner Conversion Note - [facility] ProviderMD - 12/17/2019 10:36 AM EDT [facility] Main OR IntraOp Summary Primary Physician: DRAGAN FLAHERTY MD-ORT Finalized Date/Time: 12/17/19 11:02:35 Pt. Name: ANISA KATZISE /Sex: 1965 Female Med Rec #: [id number] Physician: DRAGAN FLAHERTY MD-ORT Financial #: [id number] Pt. Type: O Room/Bed: [facility]/4 Admit/Disch: 12/17/19 04:47:00 - Institution: [facility] IntraOp Case Attendance Entry 1 Entry 2 Entry 3 Case Attendee DRAGAN FLAHERTY WICKER, KAREN KIM, BUSINESS PLANNING MANAGER Esteban Abbasi RN MD-ORT Role Performed Surgeon/Proceduralist, BUSINESS PLANNING MANAGER/Nurse Instrument Lens Generator Lead Infrastructure Architect, First First Time In 12/17/19 09:22:00 12/17/19 [...] Kian Ornelas, Scrub Assist Tech Role Performed Lead Infrastructure Architect, Second Judge, First Scrub, Second Time In 12/17/19 09:22:00 [...] Esteban Tejada RN 12/17/19 10:06:09 12/17/19 10:06:09 [facility] IntraOp Case Attendance Audit 12/17/19 10:06:09 Community Development Planner: [id number] Modifier: [id number] 1 <*> Procedure Knee Arthroscopy 2 <*> Procedure Knee Arthroscopy 3 <*> Procedure Knee Arthroscopy 4 <*> Procedure Knee Arthroscopy 5 <*> Procedure Knee Arthroscopy 6 <*> Procedure Knee Arthroscopy 7 <*> Procedure Knee Arthroscopy 8 <*> Procedure Knee Arthroscopy 12/17/19 10:05:50 Community Development Planner: [id number] Modifier: [id number] 1 <+> Time Out 1 <*> Procedure [...] 8 <*> Procedure Knee Arthroscopy 12/17/19 09:38:00 Community Development Planner: [id number] Modifier: [id number] 1 <*> Procedure Knee Arthroscopy 2 <*> [...] 8 <*> Procedure Knee Arthroscopy 12/17/19 09:37:09 Community Development Planner: [id number] Modifier: [id number] 1 <+> Time In 1 <*> Procedure [...] [facility] IntraOp Case Times Audit 12/17/19 10:04:48 Community Development Planner: [id number] Modifier: [id number] <+> 1 Out Room Time <+> 1 Stop Time <+> 1 Stop Time 12/17/19 09:37:54 Community Development Planner: [id number] Modifier: [id number] <+> 1 Start Time [facility] IntraOp Communication Entry 1 Communication To Family/Significant other Comment SURGERY START Communication By Esteban Abbasi RN Date and Time 12/17/19 09:40:00 Last Modified [...] [facility] IntraOp Counts Verification Audit 12/17/19 10:06:10 Community Development Planner: [id number] Modifier: [id number] 1 <*> Procedure Knee Arthroscopy, Knee Arthroscopy 12/17/19 10:05:53 Community Development Planner: [id number] Modifier: [id number] 1 <*> Procedure Knee Arthroscopy [facility] IntraOp Counts Final Entry 1 Procedure Knee Arthroscopy Final Count Info Count Type Sponge, Sharps Counts Verification Skin Closure/end of Sequence procedure Count Results Correct, surgeon notified Counts Performed By Count Performed By Kian Elliott, Elisabetub (Scrub) Tech Count Performed By Estebna Abbasi RN (RN) Last Modified By: Esteban Abbasi RN 12/17/19 10:06:11 [facility] IntraOp Counts Final Audit 12/17/19 10:06:11 Community Development Planner: [id number] Modifier: [id number] 1 <*> Procedure Knee Arthroscopy, Knee Arthroscopy 12/17/19 10:05:55 Community Development Planner: [id number] Modifier: [id number] 1 <*> Procedure Knee Arthroscopy [facility] IntraOp [...] RN 12/17/19 09:44:01 [facility] IntraOp General Case Gas Flow Regulator 1 Case Information OR OR 10 [facility] [...] 0.5% 30ml vial Xylocaine 0.5% w/ - [id number] epinephrine 1:200,000 50ml vial - [id number] Combo Med List 1 - Combo Med [...] Comments: ZOYA LEG OSBORN ON RIGHT LEG; Pijon LEG OSBORN ON LEFT SIDE [facility] IntraOp Patient Positioning Audit 12/17/19 10:06:11 Community Development Planner: [id number] Modifier: [id number] 1 <*> Procedure Knee Arthroscopy, Knee Arthroscopy 12/17/19 10:05:54 Community Development Planner: [id number] Modifier: [id number] 1 <*> Procedure 1 <*> Procedure Knee [...] [facility] IntraOp Sign In Audit 12/17/19 09:52:16 Community Development Planner: [id number] Modifier: [id number] <+> 1 Medication Checks Completed <+> 1 [...] Yes Elements Complete? RN Sign Out Esteban Abbasi RN Signature RN Sign Out 12/17/19 09:53:00 Signature [...] [facility] IntraOp Skin Prep Audit 12/17/19 10:06:11 Community Development Planner: [id number] Modifier: [id number] 1 <*> Procedure Knee Arthroscopy, Knee Arthroscopy 12/17/19 10:05:55 Community Development Planner: [id number] Modifier: [id number] 1 <*> Procedure Knee Arthroscopy [facility] IntraOp [...] [facility] IntraOp Surgical Procedures Audit 12/17/19 10:06:46 Community Development Planner: [id number] Modifier: [id number] 1 <*> Procedure Knee Arthroscopy 1 <*> [...] Padded Under Cuff Applied By Mary Valencia, Service Writer Advisor Removed By Mary Valencia, Service Writer Advisor Times Start Time 12/17/19 09:36:00 Stop Time 12/17/19 09:54:00 Last Modified By: Esteban Abbasi RN 12/17/19 10:08:40 Case Comments <None> Finalized By: Flor Tapia RN Document Signatures Signed By: Esteban Abbasi RN 12/17/19 10:09 Flor Tapia RN 12/17/19 11:02 Unfinalized History Date/Time Username Reason for Unfinalizing Freetext Reason for Unfinalizing 12/17/19 10:51 [id number] Correct Documentation documented in this encounter Plan of Treatment Upcoming Encounters Date Type Department Care Team (Late st Contact Info) Description 05/20/2025 8:30 AM EST Office Visit [facility] Orthopedics - [address] [place] [address] Nick Rasmussen PA-C [address] [place] [address] 08/19/2025 9:30 AM EST Appointment [facility] Breast [facility] [address] [facility] [address] [place] [address] documented as of this encounter Visit Diagnoses Not on filedocumented in this encounter Care Teams Roving Sizer Relationship Specialty Start Date End Date [facility] [address] [address] PCP - General 09/19/22 10/27/23 Lena Aguilera, STATISTICAL METHODS TEACHER [address] [place] [address] PCP - General Family Medicine 10/28/23 Nick Rasmussen PA-C [address] [place] [address] Orthopedic Surgery 08/07/23 Nimisha Ty PA-C [address] [place] [address] Physician Judge Orthopedic Surgery 02/05/24 documented as of this encounter
--- NOTE | 2025-04-15 19:59 | HMH.EDGENADL ---
Discharge Plan Disposition Patient Disposition: Home, Self-Care Condition: Good Prescriptions Prescriptions: No Action rosuvastatin [Crestor] 40 mg tablet 40 mg PO DAILY Qty: 30 2RF lisinopril-hydrochlorothiazide 20-25 mg tablet 1 tab PO DAILY Qty: 60 4RF aspirin 81 mg tablet,chewable 1 tab PO DAILY isosorbide mononitrate 30 mg tablet extended release 24 hr 30 mg PO DAILY Qty: 30 2RF levothyroxine 75 mcg tablet 75 mcg PO DAILY Qty: 30 3RF allopurinol 100 mg tablet 100 mg PO DAILY Referrals Follow up/Referrals: Mariel Sky APRN [Primary Care Provider, Family Practice] - See instructions Activity Restrictions/Add. Instructions Additional Instructions/Restrictions: You can bear weight as tolerated, and wear the boot for comfort. Follow-up with your orthopedic doctor if you continue to have pain over the next week. You can use crutches as needed. Return to the emergency department for any acute or worsening symptoms. You may need follow-up with a CT scan of your right leg to further evaluate for a soft tissue lesion that was noted, which can be done with your primary care provider. Clinical Impressions Clinical Impression: Avulsion fracture Print Language Print Language: Thai Discharge ED Provider: Deisy Ruvalcaba General Adult HPI General Chief complaint: PAIN Stated complaint: AO 04/15 1820, fell, inj legs, headache Time Seen by Provider: 04/15/25 19:55 Mode of Arrival: Ambulatory Source of Information: Patient and Relative Description of Symptoms (Recalled from ER Triage Doc. by RN): compa presents after a fall at a volleyball game. myriam fell from standing after taking a step wrong and twisting her right ankle and landed on both knees and hands but has more pain in the right knee. History of Present Illness HPI narrative: Patient is a 59-year-old female who presented to the emergency department with bilateral knee pain and right wrist pain. Patient states that she was at a volleyball game this evening when she missed a step outside fell and landed onto both of her knees as well as her right wrist. Did not hit her head did not lose consciousness. Patient required her daughters to help her up with assistance after the fall. Patient has been able to ambulate but with a limp. Patient reports that she recently had her gallbladder removed but no other recent surgeries. Patient did not have any chest pain or shortness of breath or other associated symptoms prior to the fall. Related Data Home Medications ?Medication ?Instructions ?Recorded ?Confirmed aspirin 81 mg chewable tablet 1 tab PO DAILY 12/17/24 04/15/25 allopurinol 100 mg tablet 100 mg PO DAILY 03/16/25 04/15/25 Previous Rx's ?Medication ?Instructions ?Recorded rosuvastatin 40 mg tablet (Crestor) 40 mg PO DAILY #30 tabs 01/19/25 lisinopril 20 1 tab PO DAILY #60 tabs 02/02/25 mg-hydrochlorothiazide 25 mg tablet isosorbide mononitrate 30 mg 30 mg PO DAILY #30 tabs 02/08/25 tablet,extended release 24 hr levothyroxine 75 mcg tablet 75 mcg PO DAILY #30 tabs 03/29/25 Allergies Allergy/AdvReac Type Severity Reaction Status Date / Time sulfamethoxazole (From Allergy Mild Rash Verified 04/15/25 13:18 Bactrim) trimethoprim (From Bactrim) Allergy Mild Rash Verified 04/15/25 13:18 [facility] Disclaimer: The information contained in this section may have been updated after the patient was seen, as this information can be updated by other users. Medical History (Updated 04/15/25 @ 23:27 by Deisy Ruvalcaba DO) CAD (coronary artery disease) Tricuspid regurgitation Mitral regurgitation Daytime somnolence Snoring Edema SOB (shortness of breath) Abnormal findings on diagnostic imaging of heart and coronary circulation Pre-syncope Hypothyroid Pre-diabetes Gout Surgical History (Updated 04/15/25 @ 13:20 by SAMAN Adams) History of laparoscopic cholecystectomy H/O: hysterectomy Family History Mother Cancer Kidney disease Hypertension Thyroid disorder Father Cancer Hypertension Social History Smoking Status: Never smoker alcohol intake: current substance use type: denies use current occupational status: employed Travel in the last 8 weeks?: None marital status: number of children: 2 Have you lived/traveled outside US in past 30 days?: No Contact w/someone who lives/traveled outside US past 30 days?: No Exposure to someone with infectious disease in past 14 days?: No Do you have a fever (greater than 100.4 F or 38 C)?: No Have you tested positive for COVID-19?: No Exposed to someone with COVID-19 in past 14 days?: No Do you have a sore throat?: No Do you have a cough?: No Do you have any weakness?: No Do you have any diarrhea?: No Are you experiencing any unusual bleeding?: No Do you have any muscle aches/pain?: No Do you have any abdominal pain?: No Are you experiencing loss of taste or smell?: No ROS Obtained: Yes All systems reviewed & no additional complaints except as documented and Yes Systems reviewed as appropriate & no additional complaints except as documented Physical Exam General General appearance: alert and in no apparent distress Head Head exam: atraumatic, normocephalic and normal inspection Eye Eye exam: Present normal appearance, PERRL and EOMI; Absent scleral icterus ENT ENT exam: Present normal exam and normal external ear exam Neck Neck exam: Present normal inspection and full ROM Chest Chest inspection: Present normal inspection and symmetric chest wall rise Respiratory Respiratory exam: Present normal lung sounds bilaterally; Absent respiratory distress or wheezes Cardiovascular Cardiovascular exam: Present regular rate, normal rhythm and normal heart sounds Abdominal Exam Abdominal exam: Present soft and distention; Absent tenderness, guarding or rebound Extremities Exam Extremities exam: Present normal inspection, full ROM and other (tenderness to bilateral knees and right wrist, mild swelling right knee, no laxity, negative mendoza bilaterally) Back Exam Back exam: Present normal inspection and full ROM Neurological Exam Neurological exam: Present alert and oriented X3 Psychiatric Psychiatric exam: Present normal affect and normal mood Skin Skin exam: Present warm and dry Medical Decision Making Medical Records Medical records reviewed: Yes I reviewed the patient's medical records. Screening: Per USPSTF and CDC recommendations, given the prevalence of disease in our region, it is our hospital?s policy to screen for HIV and viral Hepatitis for all patients aged 18 and over and those with ongoing risk factors. [place] Inquiry Pt receiving controlled substance: No Vital Signs: 04/15/25 19:18 04/15/25 19:21 04/15/25 23:54 Temperature 98.2 F 98.1 F 98.1 F Temperature Source Oral Oral Oral Pulse Rate 66 61 Pulse Rate [Right Radial] 66 Respiratory Rate 16 16 16 Blood Pressure 145/73 H 133/57 L Blood Pressure [Right Arm] 166/75 H Blood Pressure Mean [Right Arm] 105 Blood Pressure Source Automatic Cuff Blood Pressure Source [Right Arm] Automatic Cuff Blood Pressure Position Sitting Sitting Blood Pressure Position [Right Arm] Sitting 02 Sat by Pulse Oximetry 98 98 Oxygen Delivery Method Room Air Room Air Room Air Orders (Tests/Meds): ED MEDICATIONS Discontinued Medications Generic Name Dose Route Start Last Admin Trade Name Clayton PRN Reason Stop Dose Admin Acetaminophen 1,000 mg 04/15/25 20:10 04/15/25 20:17 Acetaminophen 500mg Tab PO 04/15/25 20:11 1,000 mg ONCE ONE Administration Ibuprofen 800 mg 04/15/25 20:11 04/15/25 20:20 Ibuprofen 800 Mg Tablet PO 04/15/25 20:12 Not Given ONCE ONE Oxycodone HCl 5 mg 04/15/25 20:10 04/15/25 20:18 Oxycodone 5mg Immediate Release Tablet PO 04/15/25 20:11 5 mg ONCE ONE Administration ORDERS Category Date Time Status Ankle XR -Right minimum 3 Views [XR ankle RT min 3V] Exams 04/15/25 20:19 Completed Stat Femur XR right 2 views [XR femur RT 2V] Stat Exams 04/15/25 20:13 Completed Fibula/tibia XR right 2 views [XR tibia fibula RT 2V] Exams 04/15/25 20:13 Completed Stat Hand XR right minimum 3 views [XR hand RT min 3V] Stat Exams 04/15/25 20:09 Completed Knee XR left 3 views [XR knee LT 3V] Stat Exams 04/15/25 20:09 Completed Knee XR right 3 views [XR knee RT 3V] Stat Exams 04/15/25 20:09 Completed Wrist XR right minimum 3 views [XR wrist RT min 3V] Exams 04/15/25 20:09 Completed Stat Medical Decision Narrative: Patient is a 59-year-old female who presented to the emergency department after mechanical fall. On arrival, patient was hemodynamically stable with unremarkable vital signs. Differential includes but not limited to: Fracture, dislocation, sprain, strain, amongst others. X-rays were ordered of the bilateral lower extremities as well as the right upper extremity. Patient was given pain medications. X-rays were reviewed and interpreted by myself: X-rays of the right lower extremity showed a possible avulsion fracture of the right medial malleolus. X-rays were otherwise negative. Patient was given a cam boot and patient was discharged home with outpatient orthopedic follow-up. Return precautions were discussed and patient was discharged home in stable condition. Critical Care Critical Care Time Critical Care Time: No
--- NOTE | 2025-04-15 20:03 | PC.NURSE ---
Pt took fall from small curb landing on both knees and wrists, pain is mostly in right knee and right wrist, ice packs applied to both. Pt is 2weeks s/p madyson, some abdominal discomfort, had post op follow up today everything ok, surgical sites intact, no bruising, Pt denies any LOC, takes baby ASA daily, 8/10 pain.
--- NOTE | 2025-04-15 20:09 | XR_ITS ---
PROCEDURE INFORMATION: Exam: XR Right Knee Exam date and time: 04/15/2025 8:21 PM Age: 59 years old Clinical indication: Injury or trauma; Fall; Blunt trauma; Knee and lower leg; Right; Additional info: Tenderness S/P fall TECHNIQUE: Imaging protocol: Radiologic exam of the right knee. Views: 3 views. COMPARISON: CR XR FEMUR RT 2V 04/15/2025 8:19 PM FINDINGS: Bones/joints: Degenerative changes most pronounced in the medial compartment. No acute abnormality. Soft tissues: Normal. IMPRESSION: No acute fracture.
--- NOTE | 2025-04-15 20:09 | XR_ITS ---
PROCEDURE INFORMATION: Exam: XR Right Hand Exam date and time: 04/15/2025 8:10 PM Age: 59 years old Clinical indication: Injury or trauma; Fall; Blunt trauma (contusions or hematomas); Wrist and hand; Right; Additional info: Tenderness S/P fall TECHNIQUE: Imaging protocol: Radiologic exam of the right hand. Views: 3 or more views. COMPARISON: No relevant prior studies available. FINDINGS: Bones/joints: Normal. No acute fracture identified. Soft tissues: Normal. IMPRESSION: No acute findings.
--- NOTE | 2025-04-15 20:09 | XR_ITS ---
PROCEDURE INFORMATION: Exam: XR Right Wrist Exam date and time: 04/15/2025 8:13 PM Age: 59 years old Clinical indication: Injury or trauma; Fall; Blunt trauma (contusions or hematomas); Wrist and hand; Right; Additional info: Tenderness S/P fall TECHNIQUE: Imaging protocol: Radiologic exam of the right wrist. Views: 3 or more views. COMPARISON: CR XR HAND RT MIN 3V 04/15/2025 8:10 PM FINDINGS: Bones/joints: Normal. No acute fracture identified. Soft tissues: Normal. IMPRESSION: No acute findings.
--- NOTE | 2025-04-15 20:09 | XR_ITS ---
PROCEDURE INFORMATION: Exam: XR Left Knee Exam date and time: 04/15/2025 8:25 PM Age: 59 years old Clinical indication: Injury or trauma; Fall; Blunt trauma; Knee; Left; Additional info: Tenderness S/P fall TECHNIQUE: Imaging protocol: Radiologic exam of the left knee. Views: 3 views. COMPARISON: No relevant prior studies available. FINDINGS: Bones/joints: No fracture evident. Mild degenerative changes of the medial and patellofemoral compartments. Soft tissues: Normal. IMPRESSION: No acute findings.
--- NOTE | 2025-04-15 20:13 | XR_ITS ---
PROCEDURE INFORMATION: Exam: XR Right Tibia and Fibula Exam date and time: 04/15/2025 8:23 PM Age: 59 years old Clinical indication: Injury or trauma; Fall; Blunt trauma; Knee and lower leg and ankle; Right; Additional info: Tenderness S/P fall TECHNIQUE: Imaging protocol: Radiologic exam of the right tibia and fibula. Views: 2 views. COMPARISON: CR XR KNEE RT 3V 04/15/2025 8:21 PM FINDINGS: Bones/joints: Normal. No acute fracture identified. Soft tissues: Ovoid 6.6 x 3.1 cm low-density lesion in the mid calf muscles posterior to the fibula only seen on the lateral views. IMPRESSION: 1. No acute fracture. 2. Ovoid 6.6 x 3.1 cm low-density lesion in the mid calf muscles posterior to the fibula. This might be soft tissue air if injury consistent with laceration or penetrating injury in this region. If no evident laceration or penetrating injury to this area then finding may reflect a lipoma or possibly developing air collection due to infection. Further assessment with CT scan should be considered if no obvious clinical explanation for this finding.
--- NOTE | 2025-04-15 20:13 | XR_ITS ---
PROCEDURE INFORMATION: Exam: XR Right Femur Exam date and time: 04/15/2025 8:19 PM Age: 59 years old Clinical indication: Injury or trauma; Fall; Blunt trauma; Knee and lower leg and ankle; Right; Additional info: Tenderness S/P fall TECHNIQUE: Imaging protocol: Radiologic exam of the right femur. Views: 2 views. COMPARISON: No relevant prior studies available. FINDINGS: Bones/joints: Unremarkable. No acute fracture. Soft tissues: Unremarkable. IMPRESSION: No acute findings.
[2025-04-15] MEDS: ACETAMINOPHEN 500MG TAB 1000 MG PO (20:17)
[2025-04-15] MEDS: OXYCODONE 5MG IMMEDIATE RELEASE TABLET 5 MG PO (20:18)
--- NOTE | 2025-04-15 20:19 | XR_ITS ---
PROCEDURE INFORMATION: Exam: XR Right Ankle Exam date and time: 04/15/2025 8:35 PM Age: 59 years old Clinical indication: Injury or trauma; Fall; Blunt trauma; Knee and lower leg and ankle; Right; Additional info: Tenderness TECHNIQUE: Imaging protocol: Radiologic exam of the right ankle. Views: 3 or more views. COMPARISON: CR XR TIBIA FIBULA RT 2V 04/15/2025 8:23 PM FINDINGS: Bones/joints: Small avulsion fracture adjacent to the tip of the medial malleolus. No other fracture identified. Soft tissues: Soft tissue swelling medially. IMPRESSION: Soft tissue swelling medially with associated avulsion fracture.
--- NOTE | 2025-04-15 20:22 | PC.NURSE ---
pt refuses Ibuprofen states she cannot take it due to heart.
--- NOTE | 2025-04-15 20:23 | PC.NURSE ---
Pt transported to XR by wheelchair, XR of right ankle added
--- NOTE | 2025-04-15 22:30 | PC.NURSE ---
Walking boot applied to pt right foot, complains of increased neck pain and headache.
[2025-04-15 23:54] VITALS: BP 133/57; PULSE 61; RESP 16; TEMP 36.7; O2SAT 96
== END 2025-04-15 23:55 | disposition home or self-care (01) ==
PROVIDERS: Emergency Provider Student in an Organized Health Care Education/Training Program; PCP Family Medicine
DX: S82.51XA Displaced fracture of medial malleolus of right tibia, initial encounter for closed fracture (principal); M25.531 Pain in right wrist; M25.561 Pain in right knee; M25.562 Pain in left knee; W19.XXXA Unspecified fall, initial encounter
CPT/HCPCS: 73110; 73130; 73552; 73562; 73590; 73610; 99283; 99284

== ENCOUNTER 2025-04-21 13:53 | Outpatient (CLI) | payer OTHER, SELFPAY ==
--- OUTSIDE RECORDS SUMMARY | 2025-04-19 13:45 | XMS_ITS | Encounter Summary ---
Author Organization [employer] ([place], [place], [place], [place]) Address [address] [place] [address] Care Team Providers Care Wet Room Supervisor Name Role Phone Nick Rasmussen PA-C Unavailable [phone] Lena Aguilera APRN Primary Care Provider Nimisha Ty PA-C Unavailable [phone] Reason for Visit * Reason Comments Foot Pain New Complaint: Right foot fracture Encounter Details Date Type Department Care Team (Late st Contact Info) Description 04/19/2025 1:45 PM EDT Office Visit [facility] Orthopedics - [address] [place] [address] Nick Campos PA-C [address] [place], [place] [id number] Avulsion fracture of right ankle (Primary Dx); [...] Date Vijay rded Speak language other than Burundian at home Not on file 07/19/2023 Want [...] were not included. NAME: Anisa Hernandes CSN: [id number] : 1965 PCP: KALIN Mccann CONSENT The [...] not fractured. 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 Patient instructed to not drive while [...] this document/medical record have been dictated via Epic! speech recognition software, which may cause errors in spelling or accurate dictation. Attempts have been madeto proofread and correct all errors. Please contact me with any questions. documented in this encounter Plan of Treatment Upcoming Encounters Date Type Department Care Team (Late st Contact Info) Description 05/20/2025 8:30 AM EST Office Visit [facility] Orth[facility] - [address] [place] [address] Nick Rasmussen PA-C [address] [place] [address] 08/19/2025 9:30 AM EST Appointment [facility] [address] [facility] [address] [place] [address] documented as of this encounter Visit Diagnoses Diagnosis Avulsion fracture of right ankle- Primary Contusion of right knee, initial encounter documented in this encounter Care Teams Wet Room Supervisor Relationship Specialty Start Date End Date Lena Aguilera APRN [address] [place] [address] PCP - General Family Medicine 10/28/23 Nick Rasmussen PA-C [address] [place] [address] Orthopedic Surgery 08/07/23 Nimisha Ty PA-C [address] [place] [address] Physician Fibrous Plasterer Orthopedic Surgery 02/05/24 documented as of this encounter
--- OUTSIDE RECORDS SUMMARY | 2025-04-21 14:38 | XMS_ITS | Encounter Summary ---
Author Organization [employer] ([place], [place], [place], [place]) Address [address] [place] [address] Care Team Providers Care Mental Health Aides Teacher Name Role Phone Krystyna Elliott [facility] Primary Care Provider Nick Rasmussen PA-C Unavailable [phone] Lena Aguilera APRN Primary Care Provider [phone] Nimisha Ty PA-C Unavailable [phone] Encounter Details Date Type Department Care Team (Late st Contact Info) Description 12/17/2019 Transcribed Document [facility] 1 [place] [address] Provider, Audra Hargrove MD Social [...] Note - [facility] Beena ProviderMD - 12/17/2019 12:37 PM EDT [facility] [address] [place] [address] ANISA KATZ :1965 Visit Time:12/17/2019 What to do next Your Diagnosis Unilateral primary osteoarthritis, right knee, Unilateral primary osteoarthritis, right knee Instructions From Your Care Team You have a prescription for [place] 7.5mg 1 tablet every 6 hours as needed for pain, your next dose is due after 4:30pm refer to discharge orders/orthopedic procedures form for detailed instructions. Follow-Up Appointments Follow Up with DRAGAN FLAHERTY MD-ORT When 12/30/2019 02:15 PM EDT Comments Appointment has been made Where: [address] [place] [address]- Medications What How Much When Instructions Next [...] and water are not available, use hand city routeman. ? Change your dressing as told by [...] medicines you take. General instructions ??? Take ffdz-xqj-tjvzbrj and prescription medicines only as told by [...] fried or sweet foods. ? Take an tkxp-dfu-pdkmcii or prescription medicines for constipation. ??? Do [...] 01/04/2006 Document Revised: 04/30/2018 Document Reviewed: 04/30/2018 Ruckus Interactive Patient Education ?? 2020 Chimeros. acetaminophen and hydrocodone (a SEET a MIN oh fen and imer benton KOJoel done) Hycet, Lorcet, [place], Verdrocet, Vicodin, Xodol, Zamicet What is the [...] may report side effects to FDA at 5-135-JGC-9117. What other drugs will affect acetaminophen and [...] affect acetaminophen and hydrocodone, including prescription and ivfm-vih-krzcjzw medicines, vitamins, and herbal products. Not all [...] to ensure that the information provided by Master Route. ('Multum') is accurate, up-to-date, and complete, but no guarantee is made to that effect. Drug information contained herein may be time sensitive. Exercise.com information has been compiled for use by healthcare practitioners and consumers in the [place] and therefore Exercise.com does not warrant that uses outside of the [place] are appropriate, unless specifically indicated otherwise. [employer] drug information does not endorse drugs, diagnose patients or recommend therapy. [employer] drug information is an informational resource designed [...] effective or appropriate for any given patient. Exercise.com does not assume any responsibility for any aspect of healthcare administered with the aid of information Exercise.com provides. The information contained herein is not intended to cover all possible uses, directions, precautions, warnings, drug interactions, allergic reactions, or adverse effects. If you have questions about the drugs you are taking, check with your doctor, nurse or pharmacist. Copyright 4637-9247 Master Route. Version: 16.. Revision Date: 07/22/2019. acetaminophen and hydrocodone (a SEET a MIN oh fen and imer droe KOE done) Hycet, Lorcet, [place], Verdrocet, Vicodin, Xodol, Zamicet What is the [...] may report side effects to FDA at 7-278-APN-7347. What other drugs will affect acetaminophen and [...] affect acetaminophen and hydrocodone, including prescription and xzhs-ero-szeuygl medicines, vitamins, and herbal products. Not all [...] to ensure that the information provided by Master Route. ('Multum') is accurate, up-to-date, and complete, but no guarantee is made to that effect. Drug information contained herein may be time sensitive. Exercise.com information has been compiled for use by healthcare practitioners and consumers in the [place] and therefore Exercise.com does not warrant that uses outside of the [place] are appropriate, unless specifically indicated otherwise. [employer] drug information does not endorse drugs, diagnose patients or recommend therapy. AppSheet drug information is an informational resource designed [...] effective or appropriate for any given patient. [employer].com does not assume any responsibility for any aspect of healthcare administered with the aid of information Exercise.com provides. The information contained herein is not intended to cover all possible uses, directions, precautions, warnings, drug interactions, allergic reactions, or adverse effects. If you have questions about the drugs you are taking, check with your doctor, nurse or pharmacist. Copyright 5858-9095 Master Route. Version: 16.01. Revision Date: 07/22/2019. Emergency Awareness [...] Assistance with quitting is available by contacting 8-349-WRNA-NOW. This is a free resource providing counseling, [...] range between ( 1.0 and 7.0 ) Marshall #: 0.41 K/uL -- Normal range between ( 0.24 and 0.82 ) Eos #: 0.25 K/uL -- Normal range between ( 0.04 and 0.54 ) Marshall %: 7.5 % -- Normal range between [...] was given the opportunity to ask questions. Patient/Procurement Coordinator Name: Patient/Procurement Coordinator Signature: Relationship to Patient: Clinician/Hospital Procurement Coordinator Signature: Date: Electronically signed by Audra Woodruff Conversion Workforce Development Specialist Cerner at 11/21/2022 11:16 AM CDT documented in this encounter Plan of Treatment Upcoming Encounters Date Type Department Care Team (Late st Contact Info) Description 05/20/2025 8:30 AM EST Office Visit [facility] Orthopedics - [address] [place] [address] Nick Rasmussen PA-C [address] [place] [address] 08/19/2025 9:30 AM EST Appointment [facility] [address] [facility] [address] [place] [address] documented as of this encounter Visit Diagnoses Not on filedocumented in this encounter Care Teams Mental Health Aides Teacher Relationship Specialty Start Date End [place] [address] PCP - General 09/19/22 10/27/23 Lena Aguilera APRN [address] [place] [address] PCP - General Family Medicine 10/28/23 Nick Rasmussen PA-C [address] [place] [address] Orthopedic Surgery 08/07/23 Nimisha Ty PA-C [address] [place] [address] Physician Manager Mobile Orthopedic Surgery 02/05/24 documented as of this encounter
--- OUTSIDE RECORDS SUMMARY | 2025-04-21 14:38 | XMS_ITS | Clinical Summary ---
[facility] Address [address] [place] [address] Care Team Providers Care Hostel Parent Name Role Phone Provider, No Known Primary [...] 09/10/2024, 08/29, 08/13/2024, Additional history exists [place] [address] [address] Care Teams Hostel Parent Relationship Specialty Start Date End Date [place], [place] [address] PCP - General 12/11/24
--- OUTSIDE RECORDS SUMMARY | 2025-04-21 14:38 | XMS_ITS | Encounter Summary ---
Author Organization [employer] ([place], [place], [place], [place]) Address [address] [place] [address] Care Team Providers Care Specimen Technician Name Role Phone Krystyna Elliott [facility] Primary Care Provider Nick Rasmussen PA-C Unavailable [phone] Lena Aguilera APRN Primary Care Provider Nimisha Ty PA-C Unavailable [phone] Encounter Details Date Type Department Care Team (Late st Contact Info) Description 12/17/2019 Transcribed Document [facility] 1 [place] [address] Provider, Audra Hargrove MD Social History Tobacco Use Types Packs/Day Years Used Date Smoking Tobacco: Never Assessed Comments Unknown Sex and Gender Information Value Date Recorded Sex Assigned at Not on file Legal Sex Female 6:57 PM CDT Gender Identity Not on file Sexual Orientation Not on file documented as of this encounter Miscellaneous Notes * Cerner Conversion Note - [facility] Beena ProviderMD - 12/17/2019 10:36 AM EDT [facility] Main OR PACU Summary Primary Physician: DRAGAN FLAHERTY MD-ORT Finalized Date/Time: 12/17/19 10:50:47 Pt. Name: MAGALYANISA WALLISE /Sex: 1965 Female Med Rec #: [id number] Physician: DRAGAN FLAHERTY MD-ORT Financial #: [id number] Pt. Type: O Room/Bed: [facility]/4 Admit/Disch: 12/17/19 04:47:00 - Institution: [facility] [place] PACU Case Times Entry 1 [...] Description 05/20/2025 8:30 AM EST Office Visit [facility] Orthoped[facility] - [facility] [address] [place] [address] Nick Rasmussen PA-C [address] [place] [address] 08/19/2025 9:30 AM EST Appointment [facility] [address] [facility] [address] [place] [address] documented as of this encounter Visit Diagnoses Not on filedocumented in this encounter Care Teams Specimen Technician Relationship Specialty Start Date End Date [facility] [address] [address] PCP - General 09/19/22 10/27/23 Lena Aguilera APRN [address] [place] [address] [place] [address] PCP - General Family Medicine 10/28/23 Nick Rasmussen PA-C [address] [place] [address] Orthopedic Surgery 08/07/23 Nimisha Ty PA-C [address] [place] [address] Physician Chainsaw Mechanic Orthopedic Surgery 02/05/24 documented as of this encounter
--- OUTSIDE RECORDS SUMMARY | 2025-04-21 14:38 | XMS_ITS | Encounter Summary ---
Author Organization [employer] ([place], [place], [place], [place]) Address [address] [place] [address] Care Team Providers Care Graphics Intern Name Role Phone Krystyna Elliott [facility] Primary Care Provider Nick Rasmussen PA-C Unavailable [phone] Lena Aguilera APRN Primary Care Provider [phone] Nimisha Ty PA-C Unavailable [phone] Encounter Details Date Type Department Care Team (Late st Contact Info) Description 12/17/2019 Transcribed Document [facility] 1 [place] [address] Provider, Audra Hargrove MD Social History Tobacco Use Types Packs/Day Years Used Date Smoking Tobacco: Never Assessed Comments Unknown Sex and Gender Information Value Date Recorded Sex Assigned at Not on file Legal Sex Female 6:57 PM CDT Gender Identity Not on file Sexual Orientation Not on file documented as of this encounter Miscellaneous Notes * Cerner Conversion Note - [facility] Beena ProviderMD - 12/17/2019 12:22 PM EDT [facility] [address] [place] [address] ANISA KATZ :1965 Visit Time:12/17/2019 What to do next Your Diagnosis Unilateral primary osteoarthritis, right knee, Unilateral primary osteoarthritis, right knee Instructions From Your Care Team You have a prescription for [place] 7.5mg 1 tablet every 6 hours as needed for pain, your next dose is due after 4:30pm refer to discharge orders/orthopedic procedures form for detailed instructions. Follow-Up Appointments Follow Up with DRAGAN FLAHERTY MD-ORT When 12/30/2019 02:15 PM EDT Comments Appointment has been made Where: [address] [place] [address]- Medications What How Much When Instructions Next [...] and water are not available, use hand senior information systems architect. ? Change your dressing as told by [...] medicines you take. General instructions ??? Take htru-dsc-rvmusxf and prescription medicines only as told by [...] fried or sweet foods. ? Take an oiea-vud-drpsnbt or prescription medicines for constipation. ??? Do [...] 01/04/2006 Document Revised: 04/30/2018 Document Reviewed: 04/30/2018 [employer] Interactive Patient Education ?? 2020 [employer]. acetaminophen and hydrocodone (a SEET a MIN oh fen and imer benton KOJoel done) Hycet, Lorcet, [place], Verdrocet, Vicodin, Xodol, Zamicet What is the [...] may report side effects to FDA at 7-130-WTS-8947. What other drugs will affect acetaminophen and [...] affect acetaminophen and hydrocodone, including prescription and pdxo-xhz-dvsnagd medicines, vitamins, and herbal products. Not all [...] to ensure that the information provided by 8bit. ('Multum') is accurate, up-to-date, and complete, but no guarantee is made to that effect. Drug information contained herein may be time sensitive. Gridium information has been compiled for use by healthcare practitioners and consumers in the [place] and therefore Gridium does not warrant that uses outside of the [place] are appropriate, unless specifically indicated otherwise. C[employer] drug information does not endorse drugs, diagnose patients or recommend therapy. [employer] drug information is an informational resource designed [...] effective or appropriate for any given patient. [employer] does not assume any responsibility for any aspect of healthcare administered with the aid of information Gridium provides. The information contained herein is not intended to cover all possible uses, directions, precautions, warnings, drug interactions, allergic reactions, or adverse effects. If you have questions about the drugs you are taking, check with your doctor, nurse or pharmacist. Copyright 9392-4575 8bit. Version: 16.. Revision Date: 07/22/2019. acetaminophen and hydrocodone (a SEET a MIN oh fen and imer droe KOE done) Hycet, Lorcet, [place], Verdrocet, Vicodin, Xodol, Zamicet What is the [...] may report side effects to FDA at 0-349-NEH-7395. What other drugs will affect acetaminophen and [...] affect acetaminophen and hydrocodone, including prescription and dunp-klv-yebztaz medicines, vitamins, and herbal products. Not all [...] to ensure that the information provided by 8bit. ('Multum') is accurate, up-to-date, and complete, but no guarantee is made to that effect. Drug information contained herein may be time sensitive. Gridium information has been compiled for use by healthcare practitioners and consumers in the [place] and therefore [employer]ium does not warrant that uses outside of the [place] are appropriate, unless specifically indicated otherwise. [employer] drug information does not endorse drugs, diagnose patients or recommend therapy. b-datum drug information is an informational resource designed [...] effective or appropriate for any given patient. [employer] does not assume any responsibility for any aspect of healthcare administered with the aid of information Gridium provides. The information contained herein is not intended to cover all possible uses, directions, precautions, warnings, drug interactions, allergic reactions, or adverse effects. If you have questions about the drugs you are taking, check with your doctor, nurse or pharmacist. Copyright 2836-7413 8bit. Version: 16.01. Revision Date: 07/22/2019. Emergency Awareness [...] Assistance with quitting is available by contacting 3-790-AEGQ-NOW. This is a free resource providing counseling, [...] range between ( 1.0 and 7.0 ) Graham #: 0.41 K/uL -- Normal range between ( 0.24 and 0.82 ) Eos #: 0.25 K/uL -- Normal range between ( 0.04 and 0.54 ) Graham %: 7.5 % -- Normal range between [...] given the opportunity to ask questions. Patient/Dry Kiln Worker Name: Patient/Dry Kiln Worker Signature: Relationship to Patient: Clinician/Hospital Dry Kiln Worker Signature: Date: Electronically signed by Audra Woodruff Conversion Air Conditioning Mechanic Industrial Cerner at 11/21/2022 11:16 AM CDT documented in this encounter Plan of Treatment Upcoming Encounters Date Type Department Care Team (Late st Contact Info) Description 05/20/2025 8:30 AM EST Office Visit [facility] Orthopedics - [address] [place] [address] Nick Rasmussen PA-C [address] [place] [address] 08/19/2025 9:30 AM EST Appointment [facility] [address] [facility] [address] [place] [address] documented as of this encounter Visit Diagnoses Not on filedocumented in this encounter Care Teams Graphics Intern Relationship Specialty Start Date End Date [facility] [place] [address] PCP - General 09/19/22 10/27/23 Lena Aguilera APRN [address] [place] [address] PCP - General Family Medicine 10/28/23 Nick Rasmussen PA-C [address] [place] [address] Orthopedic Surgery 08/07/23 Nimisha Ty PA-C [address] [place] [address] Physician Heavy Equipment Plumbing Supervisor Orthopedic Surgery 02/05/24 documented as of this encounter
--- OUTSIDE RECORDS SUMMARY | 2025-04-21 14:38 | XMS_ITS | Encounter Summary ---
Author Organization [employer] ([place], [place], [place], [place]) Address [address] [place] [address] Care Team Providers Care Scale Installer Name Role Phone Krystyna Elliott [facility] Primary Care Provider Nick Rasmussen PA-C Unavailable Lena Aguilera APRN Primary Care Provider [phone] Nimisha Ty PA-C Unavailable [phone] Encounter Details Date Type Department Care Team (Late st Contact Info) Description 12/17/2019 Transcribed Document [facility] [address] [place] [address] Provider, Audra Hargrove MD Social History Tobacco Use Types Packs/Day Years Used Date Smoking Tobacco: Never Assessed Comments Unknown Sex and Gender Information Value Date Recorded Sex Assigned at Not on file Legal Sex Female 6:57 PM CDT Gender Identity Not on file Sexual Orientation Not on file documented as of this encounter Miscellaneous Notes * Cerner Conversion Note - [facility] Beena ProviderMD - 12/17/2019 10:36 AM EDT [facility] Main OR PreOp Summary Primary Physician: DRAGAN FLAHERTY MD-ORT Finalized Date/Time: 12/17/19 10:46:48 Pt. Name: ANISA KATZISE /Sex: 1965 Female Med Rec #: [id number] Physician: DRAGAN FLAHERTY MD-ORT Financial #: [id number] Pt. Type: O Room/Bed: [facility]/4 Admit/Disch: 12/17/19 04:47:00 - Institution: [facility] PreOp Case Times Entry 1 In Preop 12/17/19 06:50:00 Ready for Holding n/a Room Patient Ready for 12/17/19 08:36:00 Surgery Patient Out of Preop 12/17/19 09:30:00 Patient Out of n/a Holding Room Last Modified By: ELIGIO SCALES 12/17/19 10:46:47 [facility] PreOp Case Times Audit 12/17/19 10:46:47 Director Of Food And Beverage Services: SHALINI Modifier: CATLETDD <+> 1 Patient Out of Preop 12/17/19 08:36:21 Director Of Food And Beverage Services: SHALINI Modifier: JOLIELEYAR <+> 1 Patient Ready for Surgery Finalized By: ELIGIO SCALES Document Signatures Signed By: ELIGIO SCALES 12/17/19 10:46 Electronically signed by Ranjan [facility] Conversion Roller Skate Assembler Cerner at 11/21/2022 11:15 AM CDT documented in this encounter Plan of Treatment Upcoming Encounters Date Type Department Care Team (Late st Contact Info) Description 05/20/2025 8:30 AM EST Office Visit [facility] Orthopedics - [address] [place] [address] Nick Rasmussen PA-C [address] [place] [address] 08/19/2025 9:30 AM EST Appointment [facility] [place] [facility] [address] [facility] [address] [place] [address] documented as of this encounter Visit Diagnoses Not on filedocumented in this encounter Care Teams Scale Installer Relationship Specialty Start Date End Date Krystyna Elliott [facility] [address] [address] PCP - General 09/19/22 10/27/23 Lena Aguilera APRN [address] [place] [address] [place] [address] PCP - General Family Medicine 10/28/23 Nick Rasmussen PA-C [address] [place], [place] [id number] Orthopedic Surgery 08/07/23 Nimisha Ty PA-C [address] [place] [address] Physician Design Engineering Manager Orthopedic Surgery 02/05/24 documented as of this encounter
--- OUTSIDE RECORDS SUMMARY | 2025-04-21 14:38 | XMS_ITS | Encounter Summary ---
Author Organization [employer] ([place], [place], [place], [place]) Address [address] [place] [address] Care Team Providers Care Fibreglass Laminator Name Role Phone Krystyna Elliott [facility] Primary Care Provider Nick Rasmussen PA-C Unavailable [phone] Lena Aguilera APRN Primary Care Provider [phone] Nimisha Ty PA-C Unavailable [phone] Encounter Details Date Type Department Care Team (Late st Contact Info) Description 12/03/2019 Transcribed Document [facility] 1 [place] [address] Provider, Audra Hargrove MD Social History Tobacco Use Types Packs/Day Years Used Date Smoking Tobacco: Never Assessed Comments Unknown Sex and Gender Information Value Date Recorded Sex Assigned at Not on file Legal Sex Female 6:57 PM CDT Gender Identity Not on file Sexual Orientation Not on file documented as of this encounter Miscellaneous Notes * Cerner Conversion Note - [facility] Beena ProviderMD - 12/03/2019 9:36 AM [...] Source : Stated Height Entry Format : [place] Height, Feet : 5 ft(Converted to: 152 cm, 60 Inch) Height, Inches : 3 Inch(Converted to: 0 ft 3 Inch, 7.62 cm) Clinical Height : 160.02 cm Weight Source : Standing scale Weight Entry Format : [place] Clinical Dosing Weight : 100.91 kg Weight, Pounds : 222 lb Body Surface Area (BSA) : 2.02 m2 Body Mass Index : 39.4 kg/m2 ([place]) [place] Body Weight : 52 kg ROSALINE MCKEON [...] ROSALINE MCKEON RN - 12/03/2019 8:36 EDT [place] Suicide Severity Rating Scale (C-SSRS) CSSRS Past [...] #2 Relationship : - Primary Language : Afghan Communication Barrier : None ROSALINE MCKEON RN [...] Description 05/20/2025 8:30 AM EST Office Visit [facility] Orthopedics - [address] [place] [address] Nick Rasmussen PA-C [address] [place] [address] 08/19/2025 9:30 AM EST Appointment [facility] [address] [facility] [address] [place] [address] documented as of this encounter Visit Diagnoses Not on filedocumented in this encounter Care Teams Fibreglass Laminator Relationship Specialty Start Date End Date Lexi [facility] [address] PCP - General 09/19/22 10/27/23 Lena Aguilera APRN [address] [place] [address] PCP - General Family Medicine 10/28/23 Nick Rasmussen PA-C [address] [place], [place] [id number] Orthopedic Surgery 08/07/23 Nimisha Ty PA-C [address] [place] [address] Physician Meat Boner And Slicer Orthopedic Surgery 02/05/24 documented as of this encounter
--- OUTSIDE RECORDS SUMMARY | 2025-04-21 14:38 | XMS_ITS | Encounter Summary ---
Author Organization [employer] ([place], [place], [place], [place]) Address [address] [place] [address] Care Team Providers Care Harbor Boat Pilot Name Role Phone Krystyna Elliott [facility] Primary Care Provider Nick Rasmussen PA-C Unavailable [phone] Lena Aguilera APRN Primary Care Provider [phone] Nimisha Ty PA-C Unavailable [phone] Encounter Details Date Type Department Care Team (Late st Contact Info) Description 12/17/2019 Transcribed Document [facility] 1 [place] [address] Provider, Audra Hargrove MD Social History Tobacco Use Types Packs/Day Years Used Date Smoking Tobacco: Never Assessed Comments Unknown Sex and Gender Information Value Date Recorded Sex Assigned at Not on file Legal Sex Female 6:57 PM CDT Gender Identity Not on file Sexual Orientation Not on file documented as of this encounter Miscellaneous Notes * Cerner Conversion Note - [facility] Beena ProviderMD - 12/17/2019 10:36 AM EDT [facility] Main OR IntraOp Summary Primary Physician: DRAGAN FLAHERTY MD-ORT Finalized Date/Time: 12/17/19 11:02:35 Pt. Name: ANISA KATZISE /Sex: 1965 Female Med Rec #: [id number] Physician: DRAGAN FLAHERTY MD-ORT Financial #: [id number] Pt. Type: O Room/Bed: [facility]/4 Admit/Disch: 12/17/19 04:47:00 - Institution: [facility] IntraOp Case Attendance Entry 1 Entry 2 Entry 3 Case Attendee DRAGAN FLAHERTY WICKER, KAREN KIM, ASSISTANT COUNSEL Esteban Abbasi RN MD-ORT Role Performed Surgeon/Proceduralist, ASSISTANT COUNSEL/Nurse Runway Model Drop Wire Aligner, First First Time In 12/17/19 09:22:00 12/17/19 [...] Kian Ornelas, Scrub Assist Tech Role Performed Drop Wire Aligner, Second Rerolling Machine Operator, First Scrub, Second Time In 12/17/19 [...] [facility] IntraOp Case Attendance Audit 12/17/19 10:06:09 Marriage Counselor: [id number] Modifier: [id number] 1 <*> Procedure Knee Arthroscopy 2 <*> Procedure Knee Arthroscopy 3 <*> Procedure Knee Arthroscopy 4 <*> Procedure Knee Arthroscopy 5 <*> Procedure Knee Arthroscopy 6 <*> Procedure Knee Arthroscopy 7 <*> Procedure Knee Arthroscopy 8 <*> Procedure Knee Arthroscopy 12/17/19 10:05:50 Marriage Counselor: [id number] Modifier: [id number] <+> Time Out 1 <*> Procedure [...] 8 <*> Procedure Knee Arthroscopy 12/17/19 09:38:00 Marriage Counselor: [id number] Modifier: [id number] 1 <*> Procedure Knee Arthroscopy 2 <*> [...] 8 <*> Procedure Knee Arthroscopy 12/17/19 09:37:09 Marriage Counselor: [id number] Modifier: [id number] 1 <+> Time In 1 <*> Procedure [...] Stop Time 12/17/19 09:57:00 Last Modified By: Esteabn Abbasi RN 12/17/19 10:04:48 [facility] IntraOp Case Times Audit 12/17/19 10:04:48 Marriage Counselor: [id number] Modifier: [id number] <+> 1 Out Room Time <+> 1 Stop Time <+> 1 Stop Time 12/17/19 09:37:54 Marriage Counselor: [id number] Modifier: [id number] <+> 1 Start Time [facility] IntraOp Communication [...] [facility] IntraOp Counts Verification Audit 12/17/19 10:06:10 Marriage Counselor: [id number] Modifier: [id number] 1 <*> Procedure Knee Arthroscopy, Knee Arthroscopy 12/17/19 10:05:53 Marriage Counselor: [id number] Modifier: [id number] 1 <*> Procedure Knee Arthroscopy [facility] IntraOp [...] [facility] IntraOp Counts Final Audit 12/17/19 10:06:11 Marriage Counselor: [id number] Modifier: [id number] 1 <*> Procedure Knee Arthroscopy, Knee Arthroscopy 12/17/19 10:05:55 Marriage Counselor: [id number] Modifier: [id number] 1 <*> Procedure Knee Arthroscopy [facility] IntraOp [...] RN 12/17/19 09:44:01 [facility] IntraOp General Case Reconsignment Clerk 1 Case Information OR OR 10 [facility] [...] 0.5% 30ml vial Xylocaine 0.5% w/ - [id number] epinephrine 1:200,000 50ml vial - [id number] Combo Med List 1 - Combo Med [...] Comments: ZOYA LEG OSBORN ON RIGHT LEG; AllPeers LEG OSBORN ON LEFT SIDE [facility] IntraOp Patient Positioning Audit 12/17/19 10:06:11 Marriage Counselor: [id number] Modifier: [id number] 1 <*> Procedure Knee Arthroscopy, Knee Arthroscopy 12/17/19 10:05:54 Marriage Counselor: [id number] Modifier: [id number] 1 <*> Procedure 1 <*> Procedure Knee [...] [facility] IntraOp Sign In Audit 12/17/19 09:52:16 Marriage Counselor: [id number] Modifier: [id number] <+> 1 Medication Checks Completed <+> 1 [...] [facility] IntraOp Skin Prep Audit 12/17/19 10:06:11 Marriage Counselor: [id number] Modifier: [id number] 1 <*> Procedure Knee Arthroscopy, Knee Arthroscopy 12/17/19 10:05:55 Marriage Counselor: [id number] Modifier: [id number] 1 <*> Procedure Knee Arthroscopy [facility] IntraOp [...] [facility] IntraOp Surgical Procedures Audit 12/17/19 10:06:46 Marriage Counselor: [id number] Modifier: [id number] 1 <*> Procedure Knee Arthroscopy 1 <*> [...] - Yes Padded Under Cuff Applied By Mayr Valencia, Biomedical Engineering Professor Removed By Mary Valencia, Biomedical Engineering Professor Times Start Time 12/17/19 09:36:00 Stop Time 12/17/19 09:54:00 Last Modified By: Esteban Abbasi RN 12/17/19 10:08:40 Case Comments <None> Finalized By: Flor Tapia RN Document Signatures Signed By: Esteban Abbasi RN 12/17/19 10:09 Flor Tapia RN 12/17/19 11:02 Unfinalized History Date/Time Username Reason for Unfinalizing Freetext Reason for Unfinalizing 12/17/19 10:51 [id number] Correct Documentation documented in this encounter Plan of Treatment Upcoming Encounters Date Type Department Care Team (Late st Contact Info) Description 05/20/2025 8:30 AM EST Office Visit [facility] Orthopedics - [address] [place] [address] Nick Rasmussen PA-C [address] [place] [address] 08/19/2025 9:30 AM EST Appointment [facility] Breast [facility] [address] [facility] [address] [place] [address] documented as of this encounter Visit Diagnoses Not on filedocumented in this encounter Care Teams Harbor Boat Pilot Relationship Specialty Start Date End Date [facility] [address] [address] PCP - General 09/19/22 10/27/23 Lena Aguilera, IRRIGATOR SPRINKLING SYSTEM [address] [place] [address] PCP - General Family Medicine 10/28/23 Nick Rasmussen PA-C [address] [place] [address] Orthopedic Surgery 08/07/23 Nimisha Ty PA-C [address] [place] [address] Physician Rerolling Machine Operator Orthopedic Surgery 02/05/24 documented as of this encounter
--- OUTSIDE RECORDS SUMMARY | 2025-04-21 14:38 | XMS_ITS | Encounter Summary ---
Author Organization [employer] ([place], [place], [place], [place]) Address [address] [place] [address] Care Team Providers Care Gas Dispenser Name Role Phone Krystyna Elliott [facility] Primary Care Provider Nick Rasmussen PA-C Unavailable [phone] Lena Aguilera APRN Primary Care Provider [phone] Nimisha Ty PA-C Unavailable [phone] Encounter Details Date Type Department Care Team (Late st Contact Info) Description 12/03/2019 Transcribed Document [facility] 1 [place] [address] Provider, Audra Hargrove MD Social [...] [facility]ena ProviderMD - 12/03/2019 9:50 AM EDT Patient: ANISA KATZ Age: 54 Years Sex: Female : 1965 Chief Complaint Right Knee Pain Primary Care Provider NEYDA JOINER (REF), CLEANING CUSTODIAN-FAM History of Present Illness This patient is [...] # 1.08 K/uL (Low) 12/03/2019 08:43 EDT Rankin % 7.5 % 12/03/2019 08:43 EDT Rankin # 0.41 K/uL 12/03/2019 08:43 EDT Eos % 4.6 % 12/03/2019 08:43 EDT Eos # 0.25 K/uL 12/03/2019 08:43 EDT Baso % 0.7 % 12/03/2019 08:43 EDT Baso # 0.04 K/uL 12/03/2019 08:43 EDT Slide Review No 12/03/2019 08:43 EDT IG# 0 x10(3)/uL 12/03/2019 08:43 EDT IG% 0 % 12/03/2019 08:43 EDT Electronically signed by Ranjan [facility] Conversion Sample Examiner Cerner at 11/21/2022 11:15 AM CDT documented in this encounter Plan of Treatment Upcoming Encounters Date Type Department Care Team (Late st Contact Info) Description 05/20/2025 8:30 AM EST Office Visit [facility] Orthopedics - [address] [place] [address] Nick Rasmussen PA-C [address] [place] [address] 08/19/2025 9:30 AM EST Appointment [facility] Breast [facility] [address] [facility] [address] [place] [address] documented as of this encounter Visit Diagnoses Not on filedocumented in this encounter Care Teams Gas Dispenser Relationship Specialty Start Date End Date [facility] At [address] [address] PCP - General 09/19/22 10/27/23 Lena Aguilera, BOTTLING SUPERVISOR [address] [place] [address] PCP - General Family Medicine 10/28/23 Nick Rasmussen PA-C [address] [place] [address] Orthopedic Surgery 08/07/23 Nimisha Ty PA-C [address] [place] [address] Physician Manager Manufacturing Orthopedic Surgery 02/05/24 documented as of this encounter
--- OUTSIDE RECORDS SUMMARY | 2025-04-21 14:39 | XMS_ITS | Encounter Summary ---
Author Organization [employer] ([place], [place], [place], [place]) Address [address] [place] [address] Care Team Providers Care Musical Instrument Mechanic Name Role Phone Krystyna Elliott [facility] Primary Care Provider Nick Rasmussen PA-C Unavailable [phone] Lena Aguilera APRN Primary Care Provider [phone] Nimisha Ty PA-C Unavailable [phone] Encounter Details Date Type Department Care Team (Late st Contact Info) Description 12/17/2019 Transcribed Document [facility] 1 [place] [address] Provider, Audra Hargrove MD Social [...] Cerner Conversion Note - [facility] Beena ProviderMD - 12/17/2019 10:36 AM EDT [facility] Main OR PostOp Summary Primary Physician: DRAGAN FLAHERTY MD-ORT Finalized Date/Time: 12/17/19 11:48:29 Pt. Name: ANISA KATZISE /Sex: 1965 Female Med Rec #: [id number] Physician: DRAGAN FLAHERTY MD-ORT Financial #: [id number] Pt. Type: O Room/Bed: [facility]/4 Admit/Disch: 12/17/19 04:47:00 - Institution: [facility] Main OR PostOp Case Times Entry 1 In PACU II 12/17/19 10:40:00 Ready for PACU II 12/17/19 11:48:00 Discharge Discharge from PACU 12/17/19 11:48:00 II Last Modified By: Erin Orta RN 12/17/19 11:48:22 [facility] Main OR PostOp Case Times Audit 12/17/19 11:48:22 Shipping/Receiving Manager: [email or web address] Modifier: [email or web address] <+> Ready for [...] Office Visit [facility] Orthopedics - [address] [place] [address] Nick Rasmussen PA-C [address] [place] [address] 08/19/2025 9:30 AM EST Appointment [facility] Breast [facility] [address] [facility] [address] [place] [address] documented as of this encounter Visit Diagnoses Not on filedocumented in this encounter Care Teams Musical Instrument Mechanic Relationship Specialty Start Date End Date Krystyna Elliott [facility] [address] [address] PCP - General 09/19/22 10/27/23 Lena Aguilera, KALIN [address] [place] [address] PCP - General Family Medicine 10/28/23 Nick Rasmussen PA-C [address] [place] [address] Orthopedic Surgery 08/07/23 Nimisha Ty PA-C [address] [place] [address] Physician Assistant Foreman Orthopedic Surgery 02/05/24 documented as of this encounter
--- OUTSIDE RECORDS SUMMARY | 2025-04-21 14:39 | XMS_ITS | Encounter Summary ---
Author Organization [employer] ([place], [place], [place], [place]) Address [address] [place] [address] Care Team Providers Care Lath Hand Name Role Phone Krystyna Elliott [facility] Primary Care Provider Nick Rasmussen PA-C Unavailable [phone] Lena Aguilera APRN Primary Care Provider Nimisha Ty PA-C Unavailable [phone] Encounter Details Date Type Department Care Team (Late st Contact Info) Description 12/17/2019 Transcribed Document [facility] 1 [place] [address] Provider, Audra Hargrove MD Social [...] Conversion Note - [facility] Beena Ogden MD - 12/17/2019 11:28 AM [...] and water are not available, use hand electrical checkout mechanic. ? Change your dressing as told by [...] medicines you take. General instructions ??? Take supg-ubu-vsthstk and prescription medicines only as told by [...] fried or sweet foods. ? Take an hrsu-dpb-kocooxg or prescription medicines for constipation. ??? Do [...] 01/04/2006 Document Revised: 04/30/2018 Document Reviewed: 04/30/2018 [employer] Patient Education ? 2019 [employer]. documented in this encounter Plan of Treatment Upcoming Encounters Date Type Department Care Team (Late st Contact Info) Description 05/20/2025 8:30 AM EST Office Visit [facility] Orthopedics - [address] [place] [address] Nick Rasmussen PA-C [address] [place], [place] [id number] 08/19/2025 9:30 AM EST Appointment [facility] [address] [facility] [address] [place] [address] documented as of this encounter Visit Diagnoses Not on filedocumented in this encounter Care Teams Lath Hand Relationship Specialty Start Date End Date [address] [facility] [place] [address] PCP - General 09/19/22 10/27/23 Lena Aguilera, HR SPECIALIST [address] [place] [address] PCP - General Family Medicine 10/28/23 Nick Rasmussen PA-C [address] [place] [address] Orthopedic Surgery 08/07/23 Nimisha Ty PA-C [address] [place] [address] Physician Spindle Carver Orthopedic Surgery 02/05/24 documented as of this encounter
--- OUTSIDE RECORDS SUMMARY | 2025-04-21 14:39 | XMS_ITS | Encounter Summary ---
Author Organization [employer] ([place], [place], [place], [place]) Address [address] [place] [address] Care Team Providers Care Stereo Operator Name Role Phone Krystyna Elliott [facility] Primary Care Provider Nick Rasmussen PA-C Unavailable [phone] Lena Aguilera APRN Primary Care Provider [phone] Nimisha Ty PA-C Unavailable Encounter Details Date Type Department Care Team (Late st Contact Info) Description 12/17/2019 Transcribed Document [facility] 1 [place] [address] Provider, Audra Hargrove MD Social History Tobacco Use Types Packs/Day Years Used Date Smoking Tobacco: Never Assessed Comments Unknown Sex and Gender Information Value Date Recorded Sex Assigned at Not on file Legal Sex Female 6:57 PM CDT Gender Identity Not on file Sexual Orientation Not on file documented as of this encounter Miscellaneous Notes * Cerner Conversion Note - [facility] Beena ProviderMD - 12/17/2019 9:10 AM EDT Pre Procedure Adult Entered On: 12/17/2019 8:16 EDT Performed On: 12/17/2019 8:10 EDT by Paola Lacy RN Height and Weight, Clinical Dosing Height Source : Stated Height Entry Format : [place] Height, Feet : 5 ft(Converted to: 152 cm, 60 Inch) Height, Inches : 3 Inch(Converted to: 0 ft 3 Inch, 7.62 cm) Clinical Height : 160.02 cm Weight Source : Standing scale Weight Entry Format : [place] Clinical Dosing Weight : 101.36 kg Weight, Pounds : 223 lb Body Surface Area (BSA) : 2.03 m2 Body Mass Index : 39.6 kg/m2 ([place]) [place] Body Weight : 52 kg Paola Lacy [...] Paola Lacy RN - 12/17/2019 8:10 EDT [place] Suicide Severity Rating Scale (C-SSRS) CSSRS Past [...] Obtained From : Patient Primary Language : Bulgarian Preferred Communication Mode : Verbal Communication Barrier [...] Scale Risk Level : 25-45 Medium Risk Kenn[place] Fall Interventions : Adequate lighting, Bed in [...] Spontaneous Cosme Coma Score : 15 Paola Layc RN - 12/17/2019 8:10 EDT documented in this encounter Plan of Treatment Upcoming Encounters Date Type Department Care Team (Late st Contact Info) Description 05/20/2025 8:30 AM EST Office Visit [facility] Orthopedics - [address] [place] [address] Nick Rasmussen PA-C [address] [place] [address] 08/19/2025 9:30 AM EST Appointment [facility] [address] [facility] [address] [place] [address] documented as of this encounter Visit Diagnoses Not on filedocumented in this encounter Care Teams Stereo Operator Relationship Specialty Start Date End [place] [address] PCP - General 09/19/22 10/27/23 Lena Aguilera, KALIN [address] [place] [address] PCP - General Family Medicine 10/28/23 Nick Rasmussen PA-C [address] [place] [address] Orthopedic Surgery 08/07/23 Nimisha Ty PA-C [address] [place], [place] [address] Physician Rail Splitter Orthopedic Surgery 02/05/24 documented as of this encounter
--- OUTSIDE RECORDS SUMMARY | 2025-04-21 14:39 | XMS_ITS | Encounter Summary ---
Author Organization [employer] ([place], [place], [place], [place]) Address [address] [place] [address] Care Team Providers Care Hardware Engineer Name Role Phone Krystyna Elliott [facility] Primary Care Provider Nick Rasmussen PA-C Unavailable [phone] Lena Aguilera APRN Primary Care Provider [phone] Nimisha Ty PA-C Unavailable [phone] Encounter Details Date Type Department Care Team (Late st Contact Info) Description 12/17/2019 Transcribed Document [facility] 1 [place] [address] Provider, Audra Hargrove MD [...] Conversion Note - [facility] Beena Ogden MD - 12/17/2019 10:59 AM EDT DATE OF PROCEDURE: 12/17/2019 SURGEON: Rell Del Cid MD PREOPERATIVE DIAGNOSIS: Right knee medial meniscus 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 POSTOPERATIVE DIAGNOSIS: Right knee medial meniscus 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 PROCEDURE PERFORMED: Right knee diagnostic arthroscopy with partial medial meniscectomy. CLINICAL APPLICATION MANAGER: Mary Valencia CFA ANESTHESIA: General. ESTIMATED BLOOD [...] tolerated the procedure well without any complications. /[id number] Rell Sylvain Del Cid MD ASC/AQ / ASC / MODL /[id number] documented in this encounter Plan of Treatment Upcoming Encounters Date Type Department Care Team (Late st Contact Info) Description 05/20/2025 8:30 AM EST Office Visit [facility] Orthopedics - [address] [place] [address] Nick Rasmussen PA-C [address] [place] [address] 08/19/2025 9:30 AM EST Appointment [facility] Breast [facility] [address] [facility] [address] [place] [address] documented as of this encounter Visit Diagnoses Not on filedocumented in this encounter Care Teams Hardware Engineer Relationship Specialty Start Date End Date [place] [facility] At [address] [place] [address] PCP - General 09/19/22 10/27/23 Lena Aguilera APRN [address] [place] [address] PCP - General Family Medicine 10/28/23 Nick Rasmussen PA-C 211 [place] [address] Orthopedic Surgery 08/07/23 Nimisha Ty PA-C [address] [place] [address] Physician Technician Test Systems Orthopedic Surgery 02/05/24 documented as of this encounter
--- OUTSIDE RECORDS SUMMARY | 2025-04-21 14:39 | XMS_ITS | Encounter Summary ---
Author Organization [employer] ([place], [place], [place], [place]) Address [address] [place] [address] Care Team Providers Care Galley Boy Name Role Phone Nick Rasmussen PA-C Unavailable [phone] Lena Aguilera APRN Primary Care Provider [phone] Nimisha Ty PA-C Unavailable [phone] Reason for Referral * Mammography (Routine) - New Request Specialty Diagnoses / Procedures Referred By Kai robins Referred To Contact Radiology Diagnoses Screening mammogram for breast cancer Procedures MM digital mammo screen with phyllis bilateral Lena Aguilera APRN [address] [place] [address] Phone: tel: fax: [facility] [address] [place] [address] Phone: tel: fax: Referral ID Status Reason Start Date Expiration Date V isits Requested Visits Authorized [id number] New Request 08/12/2024 08/12/2025 1 1 Encounter Details Date Type Department Care Team (Late st Contact Info) Description 08/12/2024 Outside Orders [facility] Central Scheduling 1 [place] [address] Lena Aguilera APRN [address] [place] [address] Screening mammogram for breast cancer [...] Date Vijay rded Speak language other than Mauritanian at home Not on file 07/19/2023 Want [...] Description 05/20/2025 8:30 AM EST Office Visit [facility] Orthopedics - [address] [place] [address] Nick Rasmussen PA-C [address] [place] [address] 08/19/2025 9:30 AM EST Appointment [facility] Breast Care [address] [facility] [address] [place] [address] documented as of this encounter [...] the next mammogram. At our facility, a nondalton marker is positioned over a visible skin [...] cancer documented in this encounter Care Teams Galley Boy Relationship Specialty Start Date End Date Lena Aguilera APRN [address] [place] [address] PCP - General Family Medicine 4/29/24 Nick Rasmussen PA-C [address] [place] [address] Orthopedic Surgery 08/07/23 Nimisha Ty PA-C [address] [place] [address] Physician National Sales Trainer Orthopedic Surgery 02/05/24 documented as of this encounter
--- OUTSIDE RECORDS SUMMARY | 2025-04-21 14:39 | XMS_ITS | Referral Summary ---
Author Organization [employer] ([place], [place], [place], [place]) Address [address] [place] [address] Care Team Providers Care Archives Technician Name Role Phone Nick Rasmussen PA-C Unavailable [phone] Lena Aguilera APRN Primary Care Provider [phone] Nimisha Ty PA-C Unavailable [phone] Encounters Date Type Department Care Team Description 04/19/2025 1:45 PM EDT Office Visit [facility] Orthopedics [address] [address] Nick Campos PA-C Avulsion fracture of right ankle (Primary Dx); Contusion of right knee, initial encounter 02/11/2025 10:00 AM EDT Office Visit [facility] [address] [address] Nick Rasmussen PA-C Primary osteoarthritis of [...] Date Vijay rded Speak language other than Equatorial Guinean at home Not on file 07/19/2023 Want [...] Pulse 74 04/19/2025 1:35 PM EDT Temperature 36.8 C (98.3 F) 12/05/2024 11:06 AM EDT Respiratory Rate 18 02/11/2025 9:16 AM EDT Oxygen Saturation 97% 12/05/2024 11:06 AM EDT Inhaled Oxygen Concentration - - Weight 88.5 kg (195 lb) 04/19/2025 1:35 PM EDT Height 160 cm (5' 3 ) 04/19/2025 1:35 PM EDT Body Mass Index 34.54 04/19/2025 1:35 PM EDT Plan of Treatment Upcoming Encounters Date Type Department Care Team (Late st Contact Info) Description 05/20/2025 8:30 AM EST Office Visit [facility] Orthopedics - [address] [place] [address] Nick Rasmussen PA-C [address] [place], [place] [id number] 08/19/2025 9:30 AM EST Appointment [facility] [address] [place] [address] Procedures Procedure Name Priority Date/Time [...] recommended imaging studies/procedures. At our facility, a shagel[place] marker is positioned over a visible skin [...] family history of breast cancer COMPARISON STUDY: [facility] 08/13/2024 FINDINGS: Craniocaudal and mediolateral [...] Recently Relevant to Health Maintenance Insurance [employer] Care Teams Archives Technician Relationship Specialty Start Date End Date Lena Aguilera, RESIDENTIAL CARPET INSTALLER [address] [facility] [place] [address] PCP - General Family Medicine 10/28/23 Nick Rasmussen PA-C [address] [place] [address] Orthopedic Surgery 08/07/23 Nimisha Ty PA-C [address] [place] [address] Physician Cognos Analyst Orthopedic Surgery 02/05/24
--- OUTSIDE RECORDS SUMMARY | 2025-04-21 14:39 | XMS_ITS | Clinical Summary ---
Author Organization [employer] ([place], [place], [place], [place]) Address [address] [place] [address] Care Team Providers Care Therapy Teacher Name Role Phone Nick Rasmussen PA-C Unavailable Lena Aguilera APRN Primary Care Provider [phone] Nimisha Ty PA-C Unavailable [phone] Allergies Active Allergy Reactions Criticality Noted Date [...] Description 04/19/2025 1:45 PM EDT Office Visit [facility] [address] [address] Nick Campos PA-C Avulsion fracture of right ankle (Primary Dx); Contusion of right knee, initial encounter 02/11/2025 10:00 AM EDT Office Visit [facility] [address] [address] Nick Rasmussen PA-C Primary osteoarthritis of left [...] Date Vijay rded Speak language other than Nicaraguan at home Not on file 07/19/2023 Want [...] Description 05/20/2025 8:30 AM EST Office Visit [facility] Orthopedics - [address] [place] [address] Nick Rasmussen PA-C [address] [place] [address] 08/19/2025 9:30 AM EST Appointment [address] [place] [address] Health Maintenance Due Date Last [...] recommended imaging studies/procedures. At our facility, a moapa marker is positioned over a visible skin [...] family history of breast cancer COMPARISON STUDY: [facility] 08/13/2024 FINDINGS: Craniocaudal and mediolateral oblique [...] Most Recently Relevant to Health Maintenance Insurance [facility] Care Teams Therapy Teacher Relationship Specialty Start Date End Date Lena Aguilera, KALIN [address] [facility] [place] [address] PCP - General Family Medicine 10/28/23 Nick Rasmussen PA-C [address] [place] [address] Orthopedic Surgery 08/07/23 Nimisha Ty PA-C [address] [place], [place] [id number] Physician Cardiology Associate Orthopedic Surgery 02/05/24
[2025-04-21 15:41] LABS: Hematocrit 38.7 % (37.0-47.0); Hemoglobin 12.9 g/dL (12.2-16.2); Immature Granulocytes % 0.3 %; Mean Corpuscular HGB Conc 33.3 g/dL (31.8-35.4); Mean Corpuscular Hemoglobin 28.1 pg (27.0-31.2); Mean Corpuscular Volume 84.3 fl (81-99); Nucleated Red Blood Cells % 0 %; Platelet Count 180 K/mm3 (142-424); Red Blood Count 4.59 M/mm3 (4.20-5.40); Red Cell Distribution Width-SD 40.0 fL; White Blood Count 6.6 K/mm3 (4.8-10.8)
[2025-04-21 16:08] LABS: Alanine Aminotransferase 33 U/L (12-78); Albumin Level 3.9 g/dl (3.5-5.0); Albumin/Globulin Ratio 1.6 (1.1-1.8); Alkaline Phosphatase 114 U/L (38-126); Anion Gap 15.0 mEq/L (5-15); Aspartate Amino Transferase 28 U/L (14-36); Bilirubin,Total 0.6 mg/dl (0.2-1.3); Blood Urea Nitrogen 22 mg/dl (7-17); Calcium 9.8 mg/dl (8.4-10.2); Carbon Dioxide 27 mmol/L (22.0-30.0); Chloride 102 mmol/L (98-107); Creatinine,Serum 1.00 mg/dl (0.52-1.04); Estimated Glomerular Filt Rate 56 ml/min (>60); GFR (African American) 68 ML/MIN (>60); Globulin 2.5 g/dL (1.3-3.2); Glucose 135 mg/dl (74-100); Potassium 4.0 mmoL/L (3.5-5.1); Sodium 140 mmol/L (136-145); Total Protein,Serum 6.4 g/dl (6.3-8.2)
== END 2025-04-21 23:59 | disposition home or self-care (01) ==
LOC: LAB.DROPOF 13:53
PROVIDERS: PCP Family Medicine; Visit Provider Family Medicine
DX: N89.8 Other specified noninflammatory disorders of vagina (principal); R30.9 Painful micturition, unspecified; R51.9 Headache, unspecified; R39.9 Unspecified symptoms and signs involving the genitourinary system
CPT/HCPCS: 80053; 85025; 87086; 87088; 87210

== ENCOUNTER 2025-05-06 18:54 | Outpatient (CLI) | payer OTHER, SELFPAY ==
--- OUTSIDE RECORDS SUMMARY | 2025-04-19 12:45 | XMS_ITS | Encounter Summary ---
Author Organization [employer] ([place], [place], [place], [place], [place]) Address [address] [place] [address] Care Team Providers Care Casting And Locker Room Servicer Name Role Phone Nick Rasmussen PA-C Unavailable [phone] Lena Aguilera APRN Primary Care Provider [phone] Nimisha Ty PA-C Unavailable [phone] Reason for Visit * Reason Comments Foot Pain New Complaint: Right foot fracture Encounter Details Date Type Department Care Team (Late st Contact Info) Description 04/19/2025 1:45 PM EDT Office Visit [facility] Orthoped[facility] - [address] [place] [address] Nick Campos PA-C [address] [place], [place] [id number] Avulsion fracture of right ankle (Primary Dx); Contusion of right knee, initial encounter Social History Tobacco Use Types Packs/Day Years [...] Sign Reading Time Taken Comments Blood Pressure 131/88 04/19/2025 1:35 PM EDT Pulse 74 04/19/2025 1:35 PM EDT Temperature - - Respiratory Rate - - Oxygen Saturation - - Inhaled Oxygen Concentration - - Weight 88.5 kg (195 lb) 04/19/2025 1:35 PM EDT Height 160 cm (5' 3 ) 04/19/2025 1:35 PM EDT Body Mass Index 34.54 04/19/2025 1:35 PM EDT documented in this encounter Progress Notes * Nick Campos PA-C - 04/19/2025 1:45 PM EDT Images from the original note were not included. NAME: Anisa Hernandes CSN: [id number] : 1965 PCP: KALIN Mccann CONSENT The following consent language was reviewed verbally with the patient in full: Key, I am using a tool to help me do my notes. It is recording our conversation and creates my notes automatically and I can focus on our discussion instead of typing in the room. Is that okay with you? The patient demonstrated understanding and verbally agreed to the above consent language. All questions were addressed, and the patient provided informed consent to proceed. REASON FOR VISIT Foot Pain (New Complaint: Right foot fracture/) HPI History of Present Illness Anisa Hernandes is a 59 year old female who presents with an ankle fracture after a fall. She sustained a fall resulting in a small avulsion fracture in her ankle on 04/15/2025. Despite thefracture, she does not experience any pain in the ankle and has been wearing a boot since the injury. She walked to the bathroom three times before the boot was applied. She takes six pills a day, including a daily baby aspirin. She has been using Aleve for headaches. She has not been using ice on her knee, which is swollen and bruised from the fall. She reports difficulty walking comfortably and has been using a brace for her hand, which is bruised but not fractured. 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 She is up every two hours at night to use the bathroom, which complicates wearing the boot during sleep. She has a history of gallbladder surgery and is scheduled to return to work next week. She also hasa history of knee issues and is seeing another provider for knee injections next month. CURRENT MEDICATIONS Current Outpatient Medications Medication Instructions [...] WITH POLYPECTOMY; Surgeon: Stephani Romero MD; Location: [facility]; Service: Gastroenterology; Laterality: N/A; HYSTERECTOMY KNEE SURGERY CT COLON CA SCRN NOT HI RSK IND 10/28/2023 SOCIAL HISTORY Social History Substance and Sexual Activity Alcohol Use Never Social History Substance and Sexual Activity Drug Use Never Tobacco Use History and Evaluation: Anisa Hernandes is a 59 y.o. female who is being counseled for smoking/tobacco cessation. Social History Tobacco Use Smoking Status Never Smokeless Tobacco Never FAMILY HISTORY Family History Problem Relation Name Age of Onset Heart disease Other High blood pressure Other Gout Other Kidney disease Other Cancer Other REVIEW OF SYSTEMS ROS Systemic: Not feeling tired. No fever and no chills. Head: No headache and no sinus pain. Otolaryngeal: No new hearing loss and no nasal passage blockage (stuffiness) within the last 24 hours. Cardiovascular: No chest pain or discomfort and no palpitations. Pulmonary: No dyspnea, wheezing or new cough within the last 24 hours. Gastrointestinal: No heartburn. No nausea. Genitourinary: No urinary loss of control. Endocrine: No temperature intolerance and no new muscle weakness. Musculoskeletal: Musculoskeletal symptoms See HPI. Neurological: No tremor. Psychological: No new anxiety and no recent insomnia. Skin: No localized skin discoloration and no rash. OBJECTIVE Vitals: 04/19/25 1335 BP: 131/88 Pulse: 74 Weight: 88.5 kg (195 lb) Height: 1.6 m (5' 3 ) Body mass index is 34.54 kg/m??. BMI Plan: High BMI-Exercise counseling provided Ortho Exam Physical Exam right ankle: - Inspection: No edema, no ecchymosis, skin intact - Palpation: Anterior ankle joint: non-tender Medial malleolus: non-tender Lateral malleolus: tender Navicular: non-tender Medial calcaneal tubercle: non-tender Base of 5th metatarsal: non-tender Peroneal tendons: non-tender Tibialis anterior: non-tender Achilles Tendon: non-tender ATFL: non-tender CFL: tender PTFL: tender deltoid ligament: non-tender - Sensation: Intact along all dermatomes of foot IMAGING/OUTSIDE REPORTS Personally reviewed Results ASSESSMENT Diagnoses and all orders for this visit: Avulsion fracture of right ankle PLAN Assessment & Plan Right ankle avulsion fracture Small bone chip fracture with no significant pain. No surgery needed. - Advise wearing a boot for protection while ambulating. - Recommend Tylenol for pain. - Advise against anti-inflammatory medications like ibuprofen or Aleve due to potential for delayedbone healing. - Provide work note for boot use and sitting as needed. - Patient concerned about driving. Advised testing driving with regular shoe. If painful then patient will need a medical driver. Patient instructed to not drive while wearing boot. - Schedule follow-up in one month with repeat x-rays. Right knee contusion and swelling Contusion with significant swelling and bruising. Scheduled for further evaluation next month with Nick Rasmussen PA-C for repeat right knee injection.. - Advise icing to reduce swelling and bruising. - Continue with planned knee injections if needed after reassessment. Right hand contusion Contusion with bruising. Brace provided from the ER. - Advise using brace for support when active. - Recommend icing to reduce swelling and bruising. - Rest the extremity - Heating pad for 20 minutes 2-3 times a day - Return to clinic if condition worsens or new symptoms arise Return in about 4 weeks (around 05/17/2025) for right foot fx with xrays. I, Nick Campos PA-C, personally performed the services described in this documentation, as scribed by Seda Cruz CMA in my presence, and is both accurate and complete. Electronically Signed, Nick Campos PA-C 04/19/2025 9:07 AM Parts of this document/medical record have been dictated via [employer] speech recognition software, which may cause errors in spelling or accurate dictation. Attempts have been madeto proofread and correct all errors. Please contact me with any questions. documented in this encounter Plan of Treatment Upcoming Encounters Date Type Department Care Team (Late st Contact Info) Description 05/20/2025 8:30 AM EST Office Visit [facility] Orthoped[facility] - [address] [place] [address] Nick Rasmussen PA-C [address] [place] [id number] 08/19/2025 9:30 AM EST Appointment [facility] [address] [place] [address] documented as of this encounter Visit Diagnoses Diagnosis Avulsion fracture of right ankle- Primary Contusion of right knee, initial encounter documented in this encounter Care Teams Casting And Locker Room Servicer Relationship Specialty Start Date End Date Lena Aguilera APRN [address] [place] [address] PCP - General Family Medicine 10/28/23 Nick Rasmussen PA-C [address] [place] [address] Orthopedic Surgery 08/07/23 Nimisha Ty PA-C [address] [place] [id number] Physician Cash Posting Clerk Orthopedic Surgery 02/05/24 documented as of this encounter
--- OUTSIDE RECORDS SUMMARY | 2025-05-06 18:57 | XMS_ITS | Encounter Summary ---
Author Organization [employer] ([place], [place], [place], [place], [place]) Address [address] [place] [address] Care Team Providers Care Veneer Trimmer Name Role Phone Krystyna Elliott [facility] Primary Care Provider Nick Rasmussen PA-C Unavailable [phone] Lena Aguilera APRN Primary Care Provider [phone] Nimisha Ty PA-C Unavailable [phone] Encounter Details Date Type Department Care Team (Late st Contact Info) Description 12/17/2019 Transcribed Document [address] [address] Provider, Audra Hargrove MD Social History Tobacco Use Types Packs/Day Years Used Date Smoking Tobacco: Never Assessed Comments Unknown Sex and Gender Information Value Date Recorded Sex Assigned at Not on file Legal Sex Female 6:57 PM CDT Gender Identity Not on file Sexual Orientation Not on file documented as of this encounter Miscellaneous Notes * Cerner Conversion Note - [facility] Beena ProviderMD - 12/17/2019 10:36 AM EDT [facility] Main OR PACU Summary Primary Physician: DRAGAN FLAHERTY MD-ORT Finalized Date/Time: 12/17/19 10:50:47 Pt. Name: ANISA KATZISE /Sex: 1965 Female Med Rec #: [id number] Physician: DRAGAN FLAHERTY MD-ORT Financial #: [id number] Pt. Type: O Room/Bed: [facility]/4 Admit/Disch: 12/17/19 04:47:00 - Institution: [facility] [place] PACU Case Times Entry 1 [...] Office Visit [facility] Orthopedics - [facility] [address] [place] [address] Nick Rasmussen PA-C [address] [place] [address] 08/19/2025 9:30 AM EST Appointment [facility] [address] [facility] [address] [place] [address] documented as of this encounter Visit Diagnoses Not on filedocumented in this encounter Care Teams Veneer Trimmer Relationship Specialty Start Date End Date Aieakiara [place] [address] PCP - General 09/19/22 10/27/23 Lena Aguilera, KALIN [address] [place] [address] PCP - General Family Medicine 10/28/23 Nick Rasmussen PA-C [address] [place] [address] Orthopedic Surgery 2/7/24 Nimisha Ty PA-C [address] [place] [address] Physician Rn Cardiac Rehab Orthopedic Surgery 02/05/24 documented as of this encounter
--- OUTSIDE RECORDS SUMMARY | 2025-05-06 18:57 | XMS_ITS | Clinical Summary ---
[facility] Address [address] [place] [address] Care Team Providers Care Branch Services Manager Name Role Phone Provider, No Known [...] 09/10/2024, 08/29, 08/13/2024, Additional history exists Insurance [place] [address] Care Teams Branch Services Manager Relationship Specialty Start Date End Date Provider, [place] [address] PCP - General 12/11/24
--- OUTSIDE RECORDS SUMMARY | 2025-05-06 18:57 | XMS_ITS | Encounter Summary ---
Author Organization [employer] ([place], [place], [place], [place], [place]) Address [address] [place] [address] Care Team Providers Care Online Content Editor Name Role Phone Krystyna Elliott [facility] Primary Care Provider Nick Rasmussen PA-C Unavailable [phone] Lena Aguilera APRN Primary Care Provider [phone] Nimisha Ty PA-C Unavailable [phone] Encounter Details Date Type Department Care Team (Late st Contact Info) Description 12/17/2019 Transcribed Document [address] [address] Provider, Audra Hargrove MD Social [...] Cerner Conversion Note - [facility] Beena ProviderMD - 12/17/2019 12:22 PM EDT [facility] [address] [place] [address] ANISA KATZ :1965 Visit Time:12/17/2019 What to do next Your Diagnosis Unilateral primary osteoarthritis, right knee, Unilateral primary osteoarthritis, right knee Instructions From Your Care Team You have a prescription for Mcclellan 7.5mg 1 tablet every 6 hours as needed for pain, your next dose is due after 4:30pm refer to discharge orders/orthopedic procedures form for detailed instructions. Follow-Up Appointments Follow Up with DRAGAN FLAHERTY MD-ORT When 12/30/2019 02:15 PM EDT Comments Appointment has been made Where: [place] [address]- Medications What How Much When Instructions Next [...] and water are not available, use hand storm sash maker. ? Change your dressing as told by [...] medicines you take. General instructions ??? Take wkhf-xaf-rsarmer and prescription medicines only as told by [...] fried or sweet foods. ? Take an kekf-oxw-fequkca or prescription medicines for constipation. ??? Do [...] 01/04/2006 Document Revised: 04/30/2018 Document Reviewed: 04/30/2018 [employer] Patient Education ?? 2020 KOALA.CH. acetaminophen and hydrocodone (a SEET a MIN oh fen and imer drokiara KOE done) Hycet, Lorcet, Mcclellan, Verdrocet, Vicodin, Xodol, Zamicet What is the [...] may report side effects to FDA at 4-491-XOI-6126. What other drugs will affect acetaminophen and [...] affect acetaminophen and hydrocodone, including prescription and vlja-mzn-tjourmi medicines, vitamins, and herbal products. Not all [...] to ensure that the information provided by [employer]. ('Multum') is accurate, up-to-date, and complete, but no guarantee is made to that effect. Drug information contained herein may be time sensitive. [employer] information has been compiled for use by healthcare practitioners and consumers in the [place] and therefore [employer] does not warrant that uses outside of the [place] are appropriate, unless specifically indicated otherwise. [employer]us drug information does not endorse drugs, diagnose patients or recommend therapy. [employer] drug information is an informational resource designed [...] effective or appropriate for any given patient. [employer] does not assume any responsibility for any aspect of healthcare administered with the aid of information [employer] provides. The information contained herein is not intended to cover all possible uses, directions, precautions, warnings, drug interactions, allergic reactions, or adverse effects. If you have questions about the drugs you are taking, check with your doctor, nurse or pharmacist. Copyright 4812-7134 [employer]. Version: 16.01. Revision Date: 07/22/2019. acetaminophen and hydrocodone (a SEET a MIN oh fen and imer droe KOE done) Hycet, Lorcet, Mcclellan, Verdrocet, Vicodin, Xodol, Zamicet What is the [...] may report side effects to FDA at 1-685-QZM-2564. What other drugs will affect acetaminophen and [...] affect acetaminophen and hydrocodone, including prescription and sran-sso-jiopimd medicines, vitamins, and herbal products. Not all [...] to ensure that the information provided by [employer]. ('Multum') is accurate, up-to-date, and complete, but no guarantee is made to that effect. Drug information contained herein may be time sensitive. [employer] information has been compiled for use by healthcare practitioners and consumers in the [place] and therefore [employer] does not warrant that uses outside of the [place] are appropriate, unless specifically indicated otherwise. [employer] drug information does not endorse drugs, diagnose patients or recommend therapy. [employer] drug information is an informational resource designed [...] effective or appropriate for any given patient. [employer] does not assume any responsibility for any aspect of healthcare administered with the aid of information [employer] provides. The information contained herein is not intended to cover all possible uses, directions, precautions, warnings, drug interactions, allergic reactions, or adverse effects. If you have questions about the drugs you are taking, check with your doctor, nurse or pharmacist. Copyright 1912-6176 [employer]. Version: 16.01. Revision Date: 07/22/2019. Emergency Awareness [...] Assistance with quitting is available by contacting 9-231-GYMR-NOW. This is a free resource providing counseling, [...] range between ( 1.0 and 7.0 ) [place] #: 0.41 K/uL -- Normal range between ( 0.24 and 0.82 ) Eos #: 0.25 K/uL -- Normal range between ( 0.04 and 0.54 ) [place] %: 7.5 % -- Normal range between [...] was given the opportunity to ask questions. Patient/Enterprise Solutions Architect Name: Patient/Enterprise Solutions Architect Signature: Relationship to Patient: Clinician/Hospital Enterprise Solutions Architect Signature: Date: documented in this encounter Plan of Treatment Upcoming Encounters Date Type Department Care Team (Late st Contact Info) Description 05/20/2025 8:30 AM EST Office Visit [facility] Orthopedics - [address] [place] [address] Nick Rasmussen PA-C [address] [place] [address] 08/19/2025 9:30 AM EST Appointment [facility] [address] [place] [address] documented as of this encounter Visit Diagnoses Not on filedocumented in this encounter Care Teams Online Content Editor Relationship Specialty Start Date End Date [facility] [place] [address] PCP - General 09/19/22 10/27/23 Lena Aguilera APRN [address] [place] [address] PCP - General Family Medicine 10/28/23 Nick Rasmussen PA-C [address] [place] [address] Orthopedic Surgery 08/07/23 Nimisha Ty PA-C [address] [place] [address] Physician Lehr Tender Orthopedic Surgery 02/05/24 documented as of this encounter
--- OUTSIDE RECORDS SUMMARY | 2025-05-06 18:57 | XMS_ITS | Encounter Summary ---
Author Organization [employer] ([place], [place], [place], [place], [place]) Address [address] [place] [address] Care Team Providers Care Construction Area Manager Name Role Phone Krystyna Elliott [facility] Primary Care Provider Nick Rasmussen PA-C Unavailable [phone] Lena Aguilera APRN Primary Care Provider [phone] Nimisha Ty PA-C Unavailable [phone] Encounter Details Date Type Department Care Team (Late st Contact Info) Description 12/17/2019 Transcribed Document [facility] [address] [place] [address] Provider, Audra Hargrove MD [...] * Cerner Conversion Note - [facility] Beena Ogden MD - 12/17/2019 10:59 AM EDT DATE OF PROCEDURE: 12/17/2019 SURGEON: Rell Del Cid MD PREOPERATIVE DIAGNOSIS: Right knee medial meniscus 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 POSTOPERATIVE DIAGNOSIS: Right knee medial meniscus 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 PROCEDURE PERFORMED: Right knee diagnostic arthroscopy with partial medial meniscectomy. SEISMIC PROSPECTING OBSERVER HELPER: Mary Valencia CFA ANESTHESIA: General. ESTIMATED BLOOD [...] tolerated the procedure well without any complications. /[id number] Rell Sylvain Del Cid MD ASC/AQ / ASC / MODL /[id number] documented in this encounter Plan of Treatment Upcoming Encounters Date Type Department Care Team (Late st Contact Info) Description 05/20/2025 8:30 AM EST Office Visit [facility] Orthopedics - [address] [place] [address] Nick Rasmussen PA-C [address] [place] [address] 08/19/2025 9:30 AM EST Appointment [facility] [address] [facility] [address] [place] [address] documented as of this encounter Visit Diagnoses Not on filedocumented in this encounter Care Teams Construction Area Manager Relationship Specialty Start Date End Date Th[facility]kiara [facility] [address] [place] [address] PCP - General 09/19/22 10/27/23 Lena Aguilera APRN [address] [place] [address] PCP - General Family Medicine 10/28/23 Nick Rasmussen PA-C [address] [place] [address] Orthopedic Surgery 08/07/23 Nimisha Ty PA-C [address] [place] [address] Physician Surgical Physician Assistant Orthopedic Surgery 02/05/24 documented as of this encounter
--- OUTSIDE RECORDS SUMMARY | 2025-05-06 18:57 | XMS_ITS | Encounter Summary ---
Author Organization [employer] ([place], [place], [place], [place], [place]) Address [address] [place] [address] Care Team Providers Care Chemical Engineering Professor Name Role Phone Krystyna Elliott [facility] Primary Care Provider Nick Rasmussen PA-C Unavailable [phone] Lena Aguilera APRN Primary Care Provider [phone] Nimisha Ty PA-C Unavailable [phone] Encounter Details Date Type Department Care Team (Late st Contact Info) Description 12/17/2019 Transcribed Document [address] [address] Provider, Audra Hargrove MD Social [...] Beena ProviderMD - 12/17/2019 12:37 PM EDT [facility] [address] [place] [address] ANISA KATZ :1965 Visit Time:12/17/2019 What to do next Your Diagnosis Unilateral primary osteoarthritis, right knee, Unilateral primary osteoarthritis, right knee Instructions From Your Care Team You have a prescription for Bend 7.5mg 1 tablet every 6 hours as needed for pain, your next dose is due after 4:30pm refer to discharge orders/orthopedic procedures form for detailed instructions. Follow-Up Appointments Follow Up with DRAGAN FLAHERTY MD-ORT When 12/30/2019 02:15 PM EDT Comments Appointment has been made Where: [address] [place] [address]- Medications What How Much When Instructions Next [...] and water are not available, use hand pediatric occupational therapist. ? Change your dressing as told by [...] medicines you take. General instructions ??? Take fgwd-zdr-unpqfki and prescription medicines only as told by [...] fried or sweet foods. ? Take an ufex-qas-vjbnezi or prescription medicines for constipation. ??? Do [...] 01/04/2006 Document Revised: 04/30/2018 Document Reviewed: 04/30/2018 [employer] Interactive Patient Education ?? 2020 Zafgen. acetaminophen and hydrocodone (a SEET a MIN oh fen and imer drokiara KOE done) Hycet, Lorcet, Bend, Verdrocet, Vicodin, Xodol, Zamicet What is the [...] may report side effects to FDA at 2-626-SNX-8775. What other drugs will affect acetaminophen and [...] affect acetaminophen and hydrocodone, including prescription and jfir-eqg-kkunrny medicines, vitamins, and herbal products. Not all [...] to ensure that the information provided by [employer] ('Multum') is accurate, up-to-date, and complete, but no guarantee is made to that effect. Drug information contained herein may be time sensitive. [employer] information has been compiled for use by healthcare practitioners and consumers in the [place] and therefore [employer] does not warrant that uses outside of the [place] are appropriate, unless specifically indicated otherwise. [employer] drug information does not endorse drugs, diagnose patients or recommend therapy. [employer] drug information is an informational resource designed [...] effective or appropriate for any given patient. [employer] does not assume any responsibility for any aspect of healthcare administered with the aid of information [employer] provides. The information contained herein is not intended to cover all possible uses, directions, precautions, warnings, drug interactions, allergic reactions, or adverse effects. If you have questions about the drugs you are taking, check with your doctor, nurse or pharmacist. Copyright 5617-9711 [employer] Version: 16.01. Revision Date: 07/22/2019. acetaminophen and hydrocodone (a SEET a MIN oh fen and imer droe KOE done) Hycet, Lorcet, Bend, Verdrocet, Vicodin, Xodol, Zamicet What is the [...] may report side effects to FDA at 7-290-XLY-1745. What other drugs will affect acetaminophen and [...] affect acetaminophen and hydrocodone, including prescription and jszt-izc-imanjjy medicines, vitamins, and herbal products. Not all [...] to ensure that the information provided by [employer] ('Multum') is accurate, up-to-date, and complete, but no guarantee is made to that effect. Drug information contained herein may be time sensitive. [employer] information has been compiled for use by healthcare practitioners and consumers in the [place] and therefore [employer] does not warrant that uses outside of the [place] are appropriate, unless specifically indicated otherwise. [employer] drug information does not endorse drugs, diagnose patients or recommend therapy. [place] drug information is an informational resource designed [...] effective or appropriate for any given patient. [employer] does not assume any responsibility for any aspect of healthcare administered with the aid of information [employer] provides. The information contained herein is not intended to cover all possible uses, directions, precautions, warnings, drug interactions, allergic reactions, or adverse effects. If you have questions about the drugs you are taking, check with your doctor, nurse or pharmacist. Copyright 9237-0514 [employer] Version: 16.01. Revision Date: 07/22/2019. Emergency Awareness [...] Assistance with quitting is available by contacting 1-903-NOMC-NOW. This is a free resource providing counseling, [...] range between ( 1.0 and 7.0 ) [place] #: 0.41 K/uL -- Normal range between ( 0.24 and 0.82 ) Eos #: 0.25 K/uL -- Normal range between ( 0.04 and 0.54 ) [place] %: 7.5 % -- Normal range between [...] was given the opportunity to ask questions. Patient/Cloth Winder Name: Patient/Cloth Winder Signature: Relationship to Patient: Clinician/Hospital Cloth Winder Signature: Date: documented in this encounter Plan of Treatment Upcoming Encounters Date Type Department Care Team (Late st Contact Info) Description 05/20/2025 8:30 AM EST Office Visit [facility] Orthopedics - [address] [place] [address] Nick Rasmussen PA-C [address] [place] [address] 08/19/2025 9:30 AM EST Appointment [facility] [address] [facility] [address] [place] [address] documented as of this encounter Visit Diagnoses Not on filedocumented in this encounter Care Teams Chemical Engineering Professor Relationship Specialty Start Date End Date [place] [address] PCP - General 09/19/22 10/27/23 Lena Aguilera APRN [address] [place] [address] PCP - General Family Medicine 10/28/23 Nick Rasmussen PA-C [address] [place] [address] Orthopedic Surgery 08/07/23 Nimisha Ty PA-C [address] [place] [address] Physician Hydrodynamics Teacher Orthopedic Surgery 02/05/24 documented as of this encounter
--- OUTSIDE RECORDS SUMMARY | 2025-05-06 18:57 | XMS_ITS | Encounter Summary ---
Author Organization [employer] ([place], [place], [place], [place], [place]) Address [address] [place] [address] Care Team Providers Care Senior Peoplesoft Developer Name Role Phone Krystyna Elliott [facility] Primary Care Provider Nick Rasmussen PA-C Unavailable [phone] Lena Aguilera APRN Primary Care Provider [phone] Nimisha Ty PA-C Unavailable [phone] Encounter Details Date Type Department Care Team (Late st Contact Info) Description 12/03/2019 Transcribed Document [facility] Radiology [address] [place] [address] Provider, Audra Hargrove MD Social History Tobacco Use Types Packs/Day Years Used Date Smoking Tobacco: Never Assessed Comments Unknown Sex and Gender Information Value Date Recorded Sex Assigned at Not on file Legal Sex Female 6:57 PM CDT Gender Identity Not on file Sexual Orientation Not on file documented as of this encounter Miscellaneous Notes * Cerner Conversion Note - [facility] Beena ProviderMD - 12/03/2019 9:36 AM [...] % Oxygen Therapy Mode : Room air RSOALINE MCKEON RN - 12/03/2019 8:36 EDT Height and Weight, Clinical Dosing Height Source : Stated Height Entry Format : [place] Height, Feet : 5 ft(Converted to: 152 cm, 60 Inch) Height, Inches : 3 Inch(Converted to: 0 ft 3 Inch, 7.62 cm) Clinical Height : 160.02 cm Weight Source : Standing scale Weight Entry Format : [place] Clinical Dosing Weight : 100.91 kg Weight, Pounds : 222 lb Body Surface Area (BSA) : 2.02 m2 Body Mass Index : 39.4 kg/m2 (DE) [place] Body Weight : 52 kg ROSALINE MCKEON [...] ROSALINE MCKEON RN - 12/03/2019 8:36 EDT Reading Suicide Severity Rating Scale (C-SSRS) CSSRS Past [...] #2 Relationship : - Primary Language : Burmese Communication Barrier : None ROSALINE MCKEON RN [...] EDT Electronically signed by Audra Woodruff Conversion Research Computing Specialist Cerner at 11/21/2022 11:15 AM CDT documented in this encounter Plan of Treatment Upcoming Encounters Date Type Department Care Team (Late st Contact Info) Description 05/20/2025 8:30 AM EST Office Visit [facility] Orthopedics - [address] [place] [address] Nick Rasmussen PA-C [address] [place] [address] 08/19/2025 9:30 AM EST Appointment [facility] [address] [facility] [address] [place] [address] documented as of this encounter Visit Diagnoses Not on filedocumented in this encounter Care Teams Senior Peoplesoft Developer Relationship Specialty Start Date End Date Krystyna Elliott [place] [id number] PCP - General 09/19/22 10/27/23 eLna Aguilera, KALIN [address] [place] [address] PCP - General Family Medicine 10/28/23 Nick Rasmussen PA-C [address] [place] [address] Orthopedic Surgery 08/07/23 Nimisha Ty PA-C [address] [place] [address] [address] Vending Machine Servicer Orthopedic Surgery 02/05/24 documented as of this encounter
--- OUTSIDE RECORDS SUMMARY | 2025-05-06 18:57 | XMS_ITS | Referral Summary ---
Author Organization [employer] ([place], [place], [place], [place], [place]) Address [address] [place] [address] Care Team Providers Care Hub Inventory Specialist Name Role Phone Nick Rasmussen PA-C Unavailable [phone] Lena Aguilera APRN Primary Care Provider [phone] Nimisha Ty PA-C Unavailable [phone] Encounters Date Type Department Care Team Description 04/19/2025 1:45 PM EDT Office Visit [facility] Orthopedics [address] [address] Nick Campos PA-C Avulsion fracture of right ankle (Primary Dx); Contusion of right knee, initial encounter 02/11/2025 10:00 AM EDT Office Visit [address] [address] Nick Rasmussen PA-C Primary osteoarthritis [...] Date Vijay rded Speak language other than Japanese at home Not on file 07/19/2023 Want [...] Description 05/20/2025 8:30 AM EST Office Visit [facility] Orthopedics - [address] [place] [address] Nick Rasmussen PA-C [address] [place] [address] 08/19/2025 9:30 AM EST Appointment [facility] [address] [facility] [address] [place] [address] Procedures Procedure Name Priority Date/Time [...] recommended imaging studies/procedures. At our facility, a the [place] marker is positioned over a visible skin [...] Most Recently Relevant to Health Maintenance Insurance [facility] Care Teams Hub Inventory Specialist Relationship Specialty Start Date End Date Lena Aguilera, NETWORK DEVELOPER [address] [place] [address] PCP - General Family Medicine 10/28/23 Nick Rasmussen PA-C [address] [place] [address] Orthopedic Surgery 08/07/23 Nimisha Ty PA-C [address] [place] [address] Physician Batter Scaler Orthopedic Surgery 02/05/24
--- OUTSIDE RECORDS SUMMARY | 2025-05-06 18:57 | XMS_ITS | Encounter Summary ---
Author Organization [employer] ([place], [place], [place], [place], [place]) Address [address] [place] [address] Care Team Providers Care Carpet Cleaner Name Role Phone Krystyna Elliott [facility] Primary Care Provider Nick Rasmussen PA-C Unavailable [phone] Lena Aguilera APRN Primary Care Provider [phone] Nimisha yT PA-C Unavailable [phone] Encounter Details Date Type Department Care Team (Late st Contact Info) Description 12/17/2019 Transcribed Document [address] [address] Provider, Audra Hargrove MD Social History Tobacco Use Types Packs/Day Years Used Date Smoking Tobacco: Never Assessed Comments Unknown Sex and Gender Information Value Date Recorded Sex Assigned at Not on file Legal Sex Female 6:57 PM CDT Gender Identity Not on file Sexual Orientation Not on file documented as of this encounter Miscellaneous Notes * Cerner Conversion Note - [facility] Beena ProviderMD - 12/17/2019 10:36 AM EDT CAROLYN Main OR PreOp Summary Primary Physician: DRAGAN FLAHERTY MD-ORT Finalized Date/Time: 12/17/19 10:46:48 Pt. Name: ANISA KATZ /Sex: 1965 Female Med Rec #: [id number] Physician: DRAGAN FLAHERTY MD-ORT Financial #: [id number] Pt. Type: O Room/Bed: [facility]/4 Admit/Disch: 12/17/19 04:47:00 - Institution: [facility] PreOp Case Times Entry 1 In Preop 12/17/19 06:50:00 Ready for Holding n/a Room Patient Ready for 12/17/19 08:36:00 Surgery Patient Out of Preop 12/17/19 09:30:00 Patient Out of n/a Holding Room Last Modified By: ELIGIO SCALES 12/17/19 10:46:47 Kiara PreOp Case Times Audit 12/17/19 10:46:47 Slide Machine Tender: SHALINI Modifier: STACIA <+> 1 Patient Out of Preop 12/17/19 08:36:21 Slide Machine Tender: SHALINI Modifier: [email or web address] <+> 1 Patient Ready for Surgery Finalized By: ELIGIO SCALES Document Signatures Signed By: ELIGIO SCALES 12/17/19 10:46 Electronically signed by Ranjan [facility] Conversion Fountain Worker Cerner at 11/21/2022 11:15 AM CDT documented in this encounter Plan of Treatment Upcoming Encounters Date Type Department Care Team (Late st Contact Info) Description 05/20/2025 8:30 AM EST Office Visit [facility] Orthopedics - [address] [place] [address] Nick Rasmussen PA-C [address] [place] [address] 08/19/2025 9:30 AM EST Appointment [facility] Breast [facility] [address] [facility] [address] [place] [address] documented as of this encounter Visit Diagnoses Not on filedocumented in this encounter Care Teams Carpet Cleaner Relationship Specialty Start Date End Date Krystyna Elliott [facility] At [address] [address] PCP - General 09/19/22 10/27/23 Lena Aguilera, KALIN [address] [place] [address] PCP - General Family Medicine 10/28/23 Nick Rasmussen PA-C [address] [place], [place] [id number] Orthopedic Surgery 08/07/23 Nimisha Ty PA-C [address] [place], [place] [id number] Physician Solution Manager Orthopedic Surgery 02/05/24 documented as of this encounter
--- OUTSIDE RECORDS SUMMARY | 2025-05-06 18:57 | XMS_ITS | Encounter Summary ---
Author Organization [employer] ([place], [place], [place], [place], [place]) Address [address] [place] [address] Care Team Providers Care Conference Director Name Role Phone Krystyna Elliott [facility] Primary Care Provider Nick Rasmussen PA-C Unavailable [phone] Lena Aguilera APRN Primary Care Provider [phone] Nimisha Ty PA-C Unavailable [phone] Encounter Details Date Type Department Care Team (Late st Contact Info) Description 12/17/2019 Transcribed Document [facility] 1 [place] [address] Provider, Audra Hargrove MD Social History Tobacco Use Types Packs/Day Years Used Date Smoking Tobacco: Never Assessed Comments Unknown Sex and Gender Information Value Date Recorded Sex Assigned at Not on file Legal Sex Female 6:57 PM CDT Gender Identity Not on file Sexual Orientation Not on file documented as of this encounter Miscellaneous Notes * Cerner Conversion Note - [facility] Beena ProviderMD - 12/17/2019 10:36 AM EDT CAROLYN Main OR IntraOp Summary Primary Physician: DRAGAN FLAHERTY MD-ORT Finalized Date/Time: 12/17/19 11:02:35 Pt. Name: ANISA KATZ /Sex: 1965 Female Med Rec #: [id number] Physician: DRAGAN FLAHERTY MD-ORT Financial #: [id number] Pt. Type: O Room/Bed: [facility]/4 Admit/Disch: 12/17/19 04:47:00 - Institution: [facility] IntraOp Case Attendance Entry 1 Entry 2 Entry 3 Case Attendee DRAGAN FLAHERTY WICKER, KAREN KIM, FIBREGLASS GUN HAND Esteban Abbasi RN MD-ORT Role Performed Surgeon/Proceduralist, FIBREGLASS GUN HAND/Nurse Cra Officer Fabrication Technician, First First Time In 12/17/19 09:22:00 12/17/19 [...] Kian Ornelas, Scrub Assist Tech Role Performed Fabrication Technician, Second Client Care Specialist, First Scrub, Second Time In 12/17/19 09:22:00 [...] Procedure Knee Arthroscopy Knee Arthroscopy Other Attendee JULIOLucio FAM Superficial Wound Closed By: Last Modified By: Esteban Abbasi, Esteban Tejada RN 12/17/19 10:06:09 12/17/19 10:06:09 [facility] IntraOp Case Attendance Audit 12/17/19 10:06:09 Global Manager: [id number] Modifier: [id number] 1 <*> Procedure Knee Arthroscopy 2 <*> Procedure Knee Arthroscopy 3 <*> Procedure Knee Arthroscopy 4 <*> Procedure Knee Arthroscopy 5 <*> Procedure Knee Arthroscopy 6 <*> Procedure Knee Arthroscopy 7 <*> Procedure Knee Arthroscopy 8 <*> Procedure Knee Arthroscopy 12/17/19 10:05:50 Global Manager: [id number] Modifier: [id number] <+> Time Out 1 <*> Procedure [...] 8 <*> Procedure Knee Arthroscopy 12/17/19 09:38:00 Global Manager: [id number] Modifier: [id number] <*> Procedure Knee Arthroscopy 2 <*> [...] 8 <*> Procedure Knee Arthroscopy 12/17/19 09:37:09 Global Manager: [id number] Modifier: [id number] 1 <+> Time In 1 <*> Procedure [...] [facility] IntraOp Case Times Audit 12/17/19 10:04:48 Global Manager: [id number] Modifier: [id number] <+> 1 Out Room Time <+> 1 Stop Time <+> 1 Stop Time 12/17/19 09:37:54 Global Manager: [id number] Modifier: [id number] <+> 1 Start Time [facility] IntraOp Communication [...] [facility] IntraOp Counts Verification Audit 12/17/19 10:06:10 Global Manager: [id number] Modifier: [id number] 1 <*> Procedure Knee Arthroscopy, Knee Arthroscopy 12/17/19 10:05:53 Global Manager: [id number] Modifier: [id number] <*> Procedure Knee Arthroscopy [facility] IntraOp [...] [facility] IntraOp Counts Final Audit 12/17/19 10:06:11 Global Manager: [id number] Modifier: [id number] <*> Procedure Knee Arthroscopy, Knee Arthroscopy 12/17/19 10:05:55 Global Manager: [id number] Modifier: [id number] 1 <*> Procedure Knee Arthroscopy [facility] IntraOp [...] RN 12/17/19 09:44:01 [facility] IntraOp General Case Associate Creative Director 1 Case Information OR OR 10 [facility] [...] 0.5% 30ml vial Xylocaine 0.5% w/ - [id number] epinephrine 1:200,000 50ml vial - [id number] Combo Med List 1 - Combo Med [...] Comments: ZOYA LEG OSBORN ON RIGHT LEG; LABOMAR LEG OSBORN ON LEFT SIDE [facility] IntraOp Patient Positioning Audit 12/17/19 10:06:11 Global Manager: [id number] Modifier: [id number] 1 <*> Procedure Knee Arthroscopy, Knee Arthroscopy 12/17/19 10:05:54 Global Manager: [id number] Modifier: [id number] 1 <*> Procedure 1 <*> Procedure Knee [...] [facility] IntraOp Sign In Audit 12/17/19 09:52:16 Global Manager: [id number] Modifier: [id number] <+> 1 Medication Checks Completed <+> 1 [...] [facility] IntraOp Skin Prep Audit 12/17/19 10:06:11 Global Manager: [id number] Modifier: [id number] 1 <*> Procedure Knee Arthroscopy, Knee Arthroscopy 12/17/19 10:05:55 Global Manager: [id number] Modifier: [id number] 1 <*> Procedure Knee Arthroscopy [facility] IntraOp [...] [facility] IntraOp Surgical Procedures Audit 12/17/19 10:06:46 Global Manager: [id number] Modifier: [id number] 1 <*> Procedure Knee Arthroscopy 1 <*> [...] Padded Under Cuff Applied By Mary Valencia, Maintenance Supervisor 2Nd Shift Removed By Mary Valencia, Maintenance Supervisor 2Nd Shift Times Start Time 12/17/19 09:36:00 Stop Time 12/17/19 09:54:00 Last Modified By: Esteban Abbasi RN 12/17/19 10:08:40 Case Comments <None> Finalized By: Flor Tapia RN Document Signatures Signed By: Esteban Abbasi RN 12/17/19 10:09 Flor Tapia RN 12/17/19 11:02 Unfinalized History Date/Time Username Reason for Unfinalizing Freetext Reason for Unfinalizing 12/17/19 10:51 [id number] Correct Documentation documented in this encounter Plan of Treatment Upcoming Encounters Date Type Department Care Team (Late st Contact Info) Description 05/20/2025 8:30 AM EST Office Visit [facility] Orthopedics - [address] [place] [address] Nick Rasmussen PA-C [address] [place] [address] 08/19/2025 9:30 AM EST Appointment Psychiatric [address] [facility] [address] [place] [address] documented as of this encounter Visit Diagnoses Not on filedocumented in this encounter Care Teams Conference Director Relationship Specialty Start Date End Date [facility] At [address] [address] PCP - General 09/19/22 10/27/23 Lena Aguilera, LEADERSHIP DEVELOPMENT MANAGER [address] [place] [address] PCP - General Family Medicine 10/28/23 Nick Rasmussen PA-C [address] [place] [address] Orthopedic Surgery 08/07/23 Nimisha Ty PA-C [address] [place] [address] Physician Client Care Specialist Orthopedic Surgery 02/05/24 documented as of this encounter
--- OUTSIDE RECORDS SUMMARY | 2025-05-06 18:57 | XMS_ITS | Encounter Summary ---
Author Organization [employer] ([place], [place], [place], [place], [place]) Address [address] [place] [address] Care Team Providers Care Stretcher Helper Name Role Phone Krystyna Elliott [facility] Primary Care Provider Nick Rasmussen PA-C Unavailable [phone] Lena Aguilera APRN Primary Care Provider [phone] Nimisha Ty PA-C Unavailable [phone] Encounter Details Date Type Department Care Team (Late st Contact Info) Description 12/03/2019 Transcribed Document [facility] Radiology 1 [place] [address] Provider, Audra Hargrove MD Social History Tobacco Use Types Packs/Day Years Used Date Smoking Tobacco: Never Assessed Comments Unknown Sex and Gender Information Value Date Recorded Sex Assigned at Not on file Legal Sex Female 6:57 PM CDT Gender Identity Not on file Sexual Orientation Not on file documented as of this encounter Miscellaneous Notes * Cerner Conversion Note - [facility] Beena ProviderMD - 12/03/2019 9:50 AM EDT Patient: ANISA KATZ Age: 54 Years Sex: Female : 1965 Chief Complaint Right Knee Pain Primary Care Provider NEYDA JOINER (REF), IMPLEMENTATION CONSULTANT-FAM History of Present Illness This patient is [...] # 1.08 K/uL (Low) 12/03/2019 08:43 EDT Early % 7.5 % 12/03/2019 08:43 EDT Early # 0.41 K/uL 12/03/2019 08:43 EDT Eos % 4.6 % 12/03/2019 08:43 EDT Eos # 0.25 K/uL 12/03/2019 08:43 EDT Baso % 0.7 % 12/03/2019 08:43 EDT Baso # 0.04 K/uL 12/03/2019 08:43 EDT Slide Review No 12/03/2019 08:43 EDT IG# 0 x10(3)/uL 12/03/2019 08:43 EDT IG% 0 % 12/03/2019 08:43 EDT Electronically signed by Ranjan [facility] Conversion Customs Verifier Cerner at 11/21/2022 11:15 AM CDT documented in this encounter Plan of Treatment Upcoming Encounters Date Type Department Care Team (Late st Contact Info) Description 05/20/2025 8:30 AM EST Office Visit [facility] Orthopedics - [address] [place] [address] Nick Rasmussen PA-C [address] [place] [address] 08/19/2025 9:30 AM EST Appointment [facility] Breast [facility] [address] [facility] [address] [place] [address] documented as of this encounter Visit Diagnoses Not on filedocumented in this encounter Care Teams Stretcher Helper Relationship Specialty Start Date End Date [facility] At [address] [id number] PCP - General 09/19/22 10/27/23 Lena Aguilera, SNUFF GRINDER AND SCREENER [address] [place] [address] PCP - General Family Medicine 10/28/23 Nick Rasmussen PA-C [address] [place] [address] Orthopedic Surgery 08/07/23 Nimisha Ty PA-C [address] [place] [address] Physician Machine Skiver Orthopedic Surgery 02/05/24 documented as of this encounter
--- OUTSIDE RECORDS SUMMARY | 2025-05-06 18:57 | XMS_ITS | Clinical Summary ---
Author Organization [employer] ([place], [place], [place], [place], [place]) Address [address] [place] [address] Care Team Providers Care Mid Level Practitioner Name Role Phone Nick Rasmussen PA-C Unavailable [phone] Lena Aguilera APRN Primary Care Provider [phone] Nimisha Ty PA-C Unavailable [phone] Allergies Active Allergy Reactions Criticality Noted Date [...] Description 04/19/2025 1:45 PM EDT Office Visit [facility] Orthopedics [address] [address] Nick Campos PA-C Avulsion fracture of right ankle (Primary Dx); Contusion of right knee, initial encounter 02/11/2025 10:00 AM EDT Office Visit [facility] Orthopedics [address] [address] Nick Rasmussen PA-C Primary osteoarthritis of left [...] Date Vijay rded Speak language other than Tuvaluan at home Not on file 07/19/2023 Want [...] Description 05/20/2025 8:30 AM EST Office Visit [facility] Orthopedics - [address] [place] [address] Nick Rasmussen PA-C [address] [place] [address] 08/19/2025 9:30 AM EST Appointment [facility] Breast [address] [place] [address] Health Maintenance Due Date Last Done [...] recommended imaging studies/procedures. At our facility, a [place] marker is positioned over a visible skin [...] family history of breast cancer COMPARISON STUDY: [facility] 08/13/2024 FINDINGS: Craniocaudal and mediolateral oblique images [...] Most Recently Relevant to Health Maintenance Insurance [facility] Care Teams Mid Level Practitioner Relationship Specialty Start Date End Date Lena Aguilera APRN [address] [facility] [address] PCP - General Family Medicine 10/28/23 Nick Rasmussen PA-C [address] [place], [place] [id number] Orthopedic Surgery 08/07/23 Nimisha Ty PA-C [address] [place] [address] Physician Spinning Bath Person Orthopedic Surgery 02/05/24
--- OUTSIDE RECORDS SUMMARY | 2025-05-06 18:57 | XMS_ITS | Clinical Summary ---
[facility] Address [address] [place] [address] Phone Care Team Providers Care Advertising Statistical Clerk Name Role Phone Lena Aguilera APRN Primary Care Physician [phone] Conditions or Problems Problem Name Problem Code [...] [BMI] 32.0-32.9, adult Urinary incontinenc e, mild 694940104 (SNOMED CT) 10/29 Active 10/29 Lena Aguilera APRN Urinary incontinence Body mass index (BMI) 32.0-32.9; adult Z68.32 (ICD-10-CM ) 10/29 Removed 10/29 Lena Joneswell VIDEO EDITOR Body mass index [BMI] 32.0-32.9, adult Body mass index (BMI) 33.0-33.9; adult Z68.33 (ICD-10-CM ) 07/31 Correction 07/31 Lena Joneswell VIDEO EDITOR Body mass index [BMI] 33.0-33.9, adult Sinusitis 44937900 (SNOMED CT) 10/29 Inactive 10/29 Lena Joneswell VIDEO EDITOR Sinusitis [facility] Lack of physical exercise Z72.3 [...] [BMI] 33.0-33.9, adult Followup of lab tests 188220250 (SNOMED CT) 07/31 Active 07/31 Lenajose JonesWillymike GAGNON Follow-up status Body mass index (BMI) 33.0-33.9; adult Z68.33 (ICD-10-CM ) 07/25 Removed 07/25 Lena Jonesmike GAGNON Body mass index [BMI] 33.0-33.9, adult Body mass index (BMI) 33.0-33.9; adult Z68.33 (ICD-10-CM ) Correction Lenajose JonesWillymike GAGNON Body mass index [BMI] 33.0-33.9, adult Prediabetes 281902522 (SNOMED CT) 2020 Active 07/25 Lena Aguilera APRN Prediabetes Joint pain 92677099 (SNOMED CT) 07/25 Active 07/25 Lena Aguilera VIDEO EDITOR Pain of joint Body mass index (BMI) 33.0-33.9; adult Z68.33 (ICD-10-CM ) Removed Bianka Vania VIDEO EDITOR Body mass index [BMI] 33.0-33.9, adult Influenza 3245228 (SNOMED CT) Active Bianka Vania VIDEO EDITOR Influenza Body mass index (BMI) 33.0-33.9; adult Z68.33 (ICD-10-CM ) 01/24 Correction 01/24 Bianka Vania VIDEO EDITOR Body mass index [BMI] 33.0-33.9, adult Body aches 38980393 (SNOMED CT) Active Bianka Vania VIDEO EDITOR Generalized aches and pains Body mass index (BMI) 33.0-33.9; adult Z68.33 (ICD-10-CM ) 01/24 Removed 01/24 Lena Aguilera VIDEO EDITOR Body mass index [BMI] 33.0-33.9, adult Body mass index (BMI) 34.0-34.9; adult Z68.34 (ICD-10-CM ) 07/10 Correction 07/10 Lena Aguilera VIDEO EDITOR Body mass index [BMI] 34.0-34.9, adult Body [...] index [BMI] 38.0-38.9, adult Colon cancer screening 917881931 (SNOMED CT) 10/27 Active 10/27 Gavin Plascencia MD Screening for malignant neoplasm of colon Mammographi c screening for breast cancer 14072092 (SNOMED CT) 10/27 Active 10/27 Gavin Plascencia MD Screening mammography Exposure to COVID-19 coronavirus 480854615 (SNOMED CT) 07/10 Active 07/10 Lena Aguilera [...] [BMI] 19.9 or less, adult Liver lesion 953382820 (SNOMED CT) 12/28 Active 12/28 Govind Dodson APRN Lesion of liver Abdominal pain, right upper quadrant 980759330 (SNOMED CT) 12/15 Active 12/15 Paola Fuller MA Right upper quadrant pain Diarrhea 19458757 (SNOMED CT) 12/15 Active 12/15 Paola Fuller MA Diarrhea Nausea and vomiting 40113090 (SNOMED CT) 12/15 Active 12/15 Paola Fuller MA Nausea and vomiting Body mass index (BMI) 19 or less; adult Z68.1 (ICD-10-CM ) 10/21 Removed 10/21 Govind Dodson VIDEO EDITOR Body mass index [BMI] 19.9 or less, adult Body mass index (BMI) 39.0-39.9; adult Z68.39 (ICD-10-CM ) 09/08 Correction 09/08 Govind Dodson VIDEO EDITOR Body mass index [BMI] 39.0-39.9, adult Vaginal lesion 665445903 (SNOMED CT) 10/21 Active 10/21 Govind Dodson VIDEO EDITOR Vaginal lesion Nausea and vomiting 10622545 (SNOMED CT) 10/21 Active 10/21 Govind Dodson VIDEO EDITOR Nausea and vomiting Cough 79633086 (SNOMED CT) 10/21 Active 10/21 Govind Dodson VIDEO EDITOR Cough Body mass index (BMI) 39.0-39.9; adult Z68.39 (ICD-10-CM ) 09/08 Removed 09/08 Govind Dodson VIDEO EDITOR Body mass index [BMI] 39.0-39.9, adult Body mass index (BMI) 40.0-44.9; adult Z68.41 (ICD-10-CM ) 02/25 Correction 02/25 Govind Dodson VIDEO EDITOR Body mass index [BMI] 40.0-44.9, adult Vitamin D deficiency 55599059 (SNOMED CT) 09/08 Active 09/08 Govind Dodson VIDEO EDITOR Vitamin D deficiency Gout 20092836 (SNOMED CT) 09/08 Active 09/08 Govind Dodson VIDEO EDITOR Gout Body mass index (BMI) 40.0-44.9; adult Z68.41 (ICD-10-CM ) 02/25 Removed 02/25 Govind Dodson APRN Body mass index [BMI] 40.0-44.9, adult Shoulder joint pain, right 966059565 (SNOMED CT) 02/25 Active 02/25 Govind Dodson VIDEO EDITOR Shoulder joint pain Counseling for nutrition Z71.3 (ICD-10-CM ) 02/25 Inactive 02/25 Govind Dodson APRN Dietary counseling and surveillance Body mass index (BMI) 39.0-39.9; adult Z68.39 (ICD-10-CM ) 11/12 Correction 11/12 Govind Dodson VIDEO EDITOR Body mass index [BMI] 39.0-39.9, adult Prediabetes 300929949 (SNOMED CT) 02/25 Active 02/25 Govind Dodson VIDEO EDITOR Prediabetes Body mass index (BMI) 39.0-39.9; adult Z68.39 (ICD-10-CM ) 11/12 Removed 11/12 Govind Dodson VIDEO EDITOR Body mass index [BMI] 39.0-39.9, adult Counseling for nutrition Z71.3 (ICD-10-CM ) 11/12 Inactive 11/12 Govind Dodson VIDEO EDITOR Dietary counseling and surveillance Body mass index (BMI) 39.0-39.9; adult Z68.39 (ICD-10-CM ) 08/21 Correction 08/21 Govind Dodson APRN Body mass index [BMI] 39.0-39.9, adult Enlarged lymph nodes 10988994 (SNOMED CT) 11/12 Active 11/12 Govind Dodson VIDEO EDITOR Lymphadenopath y Elevated liver enzymes 089521744 (SNOMED CT) 08/25 Active 08/25 Govind Dodson VIDEO EDITOR Liver enzymes outside reference range Hyperlipide dillon 43304406 (SNOMED CT) 08/25 Active 08/25 Govind Dodson VIDEO EDITOR Hyperlipidemia Hyperglycem ia 07146291 (SNOMED CT) 08/25 Active 08/25 Govind Dodson VIDEO EDITOR Hyperglycemia Body mass index (BMI) 39.0-39.9; adult Z68.39 (ICD-10-CM ) 08/21 Removed 08/21 Govind Dodson APRN Body mass index [BMI] 39.0-39.9, adult Breast exam 43554355 (SNOMED CT) 08/21 Active 08/21 Govind Dodson VIDEO EDITOR Examination of breast Foot joint pain, left 364319086 (SNOMED CT) 08/21 Active 08/21 Govind Dodson VIDEO EDITOR Pain of joint of foot Knee joint pain, right 11881937 (SNOMED CT) 08/21 Active 08/21 Govind Dodson VIDEO EDITOR Knee pain Dysuria 24101892 (SNOMED CT) 08/21 Active 08/21 Govind Dodson VIDEO EDITOR Dysuria Vaginal discharge 911995759 (SNOMED CT) 08/21 Active 08/21 Govind Dodson VIDEO EDITOR Vaginal discharge Establish care or get acquainted visit 336164854 (SNOMED CT) 08/21 Active 08/21 Govind Dodson APRN Procedure carried out on subject Hypothyroid 72451952 (SNOMED CT) 08/21 Active 08/21 Govind Dodson VIDEO EDITOR Hypothyroidism Hypertensio n, benign 91958355 (SNOMED CT) 08/21 Active 08/21 Govind Dodson VIDEO EDITOR Benign hypertension Hx of hysterectom y, total 284064455 (OMED CT) 08/21 Active 08/21 Govind Dodson VIDEO EDITOR Total hysterectomy Medications Medication Instructions Start Date Stop Date Generic Name ND Provider Diflucan 150 mg tablet Take 1 tablet by mouth single dose May repeat in 7 days 11/05 Diflucan 150 mg tablet Lena Willy VIDEO EDITOR NATURAL VITAMIN D-3 125 MCG (5000 UT) TABS Take 1 tablet by mouth once a day 11/05 cholecalciferol (vitamin d3) 24994211192 Lena Willymike JENKINSN AMOXICILLIN 500 MG CAPS Take 1 capsule by mouth twice a day for 10 days 10/29 amoxicillin 20378561303 Lena Willy VIDEO EDITOR GOODSENSE ASPIRIN 81 MG CHEW 08/07 aspirin 03991623495 Lena Willy VIDEO EDITOR FISH OIL 1000 MG CAPS Take 1 capsule by mouth twice a day 07/25 omega 0-rsl-sdo-fish oil 87747040103 Lena Aguilera APRN GOODSENSE ASPIRIN 81 MG CHEW Take 1 tablet by mouth once a day 08/07 aspirin 07043786438 Lena Aguilera APRN LISINOPRIL-HYDROCHLO ROTHIAZIDE 20-12.5 MG TABS Take 1 tablet by mouth once a day 07/10 lisinopril-hydroch lorothiazide 02459930136 Lena Aguilera APRN FISH OIL 1000 MG CAPS Take 1 capsule by mouth twice a day 07/25 omega 6-jkr-ooe-fish oil 68052353883 Lena Aguilera APRN LEVOTHYROXINE SODIUM 75 MCG TABS Take 1 tablet by mouth once a day 08/21 levothyroxine 93932337997 Lena Aguilera APRN LISINOPRIL-HYDROCHLO ROTHIAZIDE 20-12.5 MG TABS Take 1 tablet by mouth once a day 07/10 lisinopril-hydroch lorothiazide 61049684740 Marine Lawrence APRN LEVOTHYROXINE SODIUM 75 MCG TABS Take 1 tablet by mouth once a day 08/21 levothyroxine 56698720036 Marine Lawrence APRN FISH OIL 1000 MG CAPS Take 1 capsule by mouth twice a day 07/25 omega 9-gbg-tus-fish oil 85570242181 Lena Aguilera APRN TAMIFLU 75 MG CAPS Take 1 capsule by mouth twice a day FOR FIVE DAYS 07/25 oseltamivir 69406896181 Lena Aguilera APRN PREDNISONE 20 MG TABS Take 1 tablet by mouth twice a day for 5 days 07/25 prednisone 41743428323 Lena Aguilera APRN PRAVASTATIN SODIUM 20 MG TABS Take 1 tablet by mouth once a day 01/24 pravastatin 19524636496 Lena Aguilera APRN TAMIFLU 75 MG CAPS Take 1 capsule by mouth twice a day FOR FIVE DAYS oseltamivir 08977129382 Lena Aguilera APRN PREDNISONE 20 MG TABS Take 1 tablet by mouth twice a day for 5 days prednisone 17077885400 Lena Aguilera APRN PRAVASTATIN SODIUM 20 MG TABS Take 1 tablet by mouth once a day 01/24 pravastatin 90154971218 Lena Aguilera APRN PRAVASTATIN SODIUM 20 MG TABS Take 1 tablet by mouth once a day 01/24 pravastatin 70154180813 Rebecca Abhinav VIDEO EDITOR TAMIFLU 75 MG CAPS Take 1 capsule by mouth twice a day FOR FIVE DAYS oseltamivir 63687948680 Bianka Vania VIDEO EDITOR PREDNISONE 20 MG TABS Take 1 tablet by mouth twice a day for 5 days prednisone 47905054997 Bianka Vania KALIN GOODSENSE ASPIRIN 81 MG CHEW aspirin 72389096702 Lena Aguilera APRN METFORMIN HCL 500 MG TABS Take increase to 2 tablets in AM and 1 tablet in PM metformin 32656880262 Lena Aguilera APRN ALLOPURINOL 100 MG TABS TAKE 1 TABLET BY MOUTH ONCE DAILY 01/07 allopurinol 44567763174 Lena Aguilera APRN LEVOTHYROXINE SODIUM 75 MCG TABS Take 1 tablet by mouth once a day 08/21 levothyroxine 57385236916 Lena Aguilera APRN LISINOPRIL-HYDROCHLO ROTHIAZIDE 20-12.5 MG TABS Take 1 tablet by mouth once a day 07/10 lisinopril-hydroch lorothiazide 94045484201 Lena Aguilera APRN PRAVASTATIN SODIUM 20 MG TABS Take 1 tablet by mouth once a day 01/24 pravastatin 52596985357 Lena Aguilera APRN METFORMIN HCL 500 MG TABS Take increase to 2 tablets in AM and 1 tablet in PM metformin 94958213662 Gavin Plascencia MD PRAVASTATIN SODIUM 10 MG TABS Take 1 tablet by mouth every night 09/09 pravastatin 13815218802 Gavin Plascencia MD METHOCARBAMOL 750 MG TABS TAKE 1 TABLET BY MOUTH THREE TIMES DAILY as needed for muscle spasms. 07/10 methocarbamol 45291279135 Gavin Plascencia MD LEVOTHYROXINE SODIUM 75 MCG TABS Take 1 tablet by mouth once a day 08/21 levothyroxine 32639465060 Gavin Plascencia MD NAPROXEN 500 MG TABS Take 1 tablet by mouth twice a day as needed 08/21 naproxen 66718857780 Gavin Plascencia MD LISINOPRIL-HYDROCHLO ROTHIAZIDE 20-25 MG TABS Take 1 tablet by mouth once a day 07/10 lisinopril-hydroch lorothiazide 27936086147 Gavin Plascencia MD LISINOPRIL-HYDROCHLO ROTHIAZIDE 20-12.5 MG TABS Take 1 tablet by mouth once a day 07/10 lisinopril-hydroch lorothiazide 17357075518 Gavin Plascencia MD CYCLOBENZAPRINE HCL 10 MG TABS Take 1 tablet by mouth at bedtime 07/10 cyclobenzaprine 10090474872 Gavin Plascencia MD METFORMIN HCL 500 MG TABS Take increase to 2 tablets in AM and 1 tablet in PM metformin 74906944607 Holly Nolan APRN PRAVASTATIN SODIUM 10 MG TABS Take 1 tablet by mouth every night 09/09 pravastatin 35712654111 Holly Nolan APRN LISINOPRIL-HYDROCHLO ROTHIAZIDE 20-25 MG TABS Take 1 tablet by mouth once a day lisinopril-hydroch lorothiazide 86093634632 Holly Nolan APRN LEVOTHYROXINE SODIUM 75 MCG TABS Take 1 tablet by mouth once a day 08/21 levothyroxine 23059366433 Holly Blanchejulienne VIDEO EDITOR METHOCARBAMOL 750 MG TABS TAKE 1 TABLET BY MOUTH THREE TIMES DAILY as needed for muscle spasms. methocarbamol 32584104416 Holly Nolan APRN LEVOTHYROXINE SODIUM 75 MCG TABS Take 1 tablet by mouth once a day 08/21 levothyroxine 97655928964 Govind Dodson APRN PRAVASTATIN SODIUM 10 MG TABS Take 1 tablet by mouth every night 09/09 pravastatin 31302626613 Govind Dodson APRN METFORMIN HCL 500 MG TABS Take increase to 2 tablets in AM and 1 tablet in PM metformin 90505377463 Govind Dodson APRN METHOCARBAMOL 750 MG TABS TAKE 1 TABLET BY MOUTH THREE TIMES DAILY as needed for muscle spasms. methocarbamol 66218139660 Govind West JENKINSN HYDROCHLOROTHIAZIDE 25 MG TABS Take 1 tablet by mouth once a day TAKE ONE TABLET BY MOUTH DAILY 03/17 hydrochlorothiazid e 49627380098 Govind West GAGNON VITAMIN D3 1.25 MG (73874 UT) CAPS Take 1 capsule by mouth once a week 09/08 cholecalciferol (vitamin d3) 31646502215 Govind Dodson APRN LISINOPRIL-HYDROCHLO ROTHIAZIDE 20-25 MG TABS Take 1 tablet by mouth once a day lisinopril-hydroch lorothiazide 18520617525 Govind Dodson APRN METFORMIN HCL 500 MG TABS Take increase to 2 tablets in AM and 1 tablet in PM metformin 98585202564 Gavin Plascencia MD ALLOPURINOL 100 MG TABS TAKE 1 TABLET BY MOUTH ONCE DAILY 01/07 allopurinol 54134168791 Gavin Plascencia MD LEVOTHYROXINE SODIUM 75 MCG TABS Take 1 tablet by mouth once a day 08/21 levothyroxine 54021854982 Gavin Plascencia MD VITAMIN D3 1.25 MG (98382 UT) CAPS Take 1 capsule by mouth once a week 09/08 cholecalciferol (vitamin d3) 61804866548 Gavin Plascencia MD HYDROCHLOROTHIAZIDE 25 MG TABS Take 1 tablet by mouth once a day TAKE ONE TABLET BY MOUTH DAILY 03/17 hydrochlorothiazid e 49140754508 Gavin Plascencia MD PRAVASTATIN SODIUM 10 MG TABS Take 1 tablet by mouth every night 09/09 pravastatin 42053401584 Gavin Plascencia MD METFORMIN HCL 500 MG TABS Take 1 tablet by mouth twice a day increase to 2 tablets in AM and 1 tablet in PM 04/07 metformin 71278363077 Govind Dodson APRN METFORMIN HCL 500 MG TABS Take increase to 2 tablets in AM and 1 tablet in PM metformin 39947719264 Govind Dodson APRN LEVOTHYROXINE SODIUM 75 MCG TABS Take 1 tablet by mouth once a day 08/21 levothyroxine 82421422639 Govind Dodson APRN METFORMIN HCL 500 MG TABS Take 1 tablet by mouth twice a day 09/09 metformin 58915450095 Govind Dodson APRN HYDROCHLOROTHIAZIDE 25 MG TABS Take 1 tablet by mouth once a day TAKE ONE TABLET BY MOUTH DAILY 03/17 hydrochlorothiazid e 65837999932 Govind Dodson APRN METFORMIN HCL 500 MG TABS Take 1 tablet by mouth twice a day increase to 2 tablets in AM and 1 tablet in PM metformin 70959228998 Govind Dodson APRN LEVOTHYROXINE SODIUM 75 MCG TABS Take 1 tablet by mouth once a day 08/21 levothyroxine 11892068628 Joana Boudreaux APRN HYDROCHLOROTHIAZIDE 25 MG TABS Take 1 tablet by mouth once a day 08/21 hydrochlorothiazid e 64136404434 Paola Fuller MA HYDROCHLOROTHIAZIDE 25 MG TABS Take 1 tablet by mouth once a day TAKE ONE TABLET BY MOUTH DAILY 03/17 hydrochlorothiazid e 08991552443 Joana Boudreaux APRN ALLOPURINOL 100 MG TABS Take 1 tablet by mouth once a day 09/08 allopurinol 35920147237 Govind Dodson APRN ALLOPURINOL 100 MG TABS TAKE 1 TABLET BY MOUTH ONCE DAILY 01/07 allopurinol 38118201830 Govind Dodson APRN NAPROXEN 500 MG TABS Take 1 tablet by mouth twice a day as needed 08/21 naproxen 19860176566 Govind Dodson APRN VITAMIN D3 1.25 MG (19806 UT) CAPS Take 1 capsule by mouth once a week 09/08 cholecalciferol (vitamin d3) 41338103582 Govind Dodson APRN ALLOPURINOL 100 MG TABS Take 1 tablet by mouth once a day 09/08 allopurinol 27313990982 Govind Dodson APRN IMODIUM A-D 2 MG TABS TAKE 2 TABLETS BY MOUTH ONCE THEN TAKE 1 TABLET AFTER EACH LOOSE BOWEL MOVEMENT. MAX 4 TABLETS IN 24 HOURS 10/21 LOPERAMIDE HCL Govind Dodson KALIN LEVOTHYROXINE SODIUM 75 MCG TABS Take 1 tablet by mouth once a day 08/21 levothyroxine 08188938115 Govind Dodson APRN METFORMIN HCL 500 MG TABS Take 1 tablet by mouth twice a day 09/09 metformin 12044010138 Govind Dodson APRN PRAVASTATIN SODIUM 10 MG TABS Take 1 tablet by mouth every night 09/09 pravastatin 66667118187 Govindravi Dodson KALIN HYDROCHLOROTHIAZIDE 25 MG TABS Take 1 tablet by mouth once a day 08/21 hydrochlorothiazid e 91514213432 Paola Alina MA IMODIUM A-D 2 MG [...] as needed for nausea/vomiti ng 12/15 ondansetron 47497237800 Govindravi Dodson KALIN VALTREX 1 GM TABS TAKE 1 TABLET BY MOUTH 2 TIMES A DAY 10/21 VALACYCLOVIR HCL 53092368989 Govind Dodson KALIN IMODIUM A-D 2 MG TABS TAKE 2 TABLETS BY MOUTH ONCE THEN TAKE 1 TABLET AFTER EACH LOOSE BOWEL MOVEMENT. MAX 4 TABLETS IN 24 HOURS 10/21 LOPERAMIDE HCL 92228801134 Govind Dodson APRN ONDANSETRON HCL 8 MG TABS TAKE 1 TABLET BY MOUTH EVERY 8 HOURS NEEDED FOR NAUSEA/VOMTIN G 10/21 ONDANSETRON HCL 39075395495 Govind Dodson APRN METFORMIN HCL 500 MG TABS TAKE 1 TABLET BY MOUTH 2 TIMES A DAY 09/09 METFORMIN HCL 56488111835 Govind Dodson VIDEO EDITOR PRAVASTATIN SODIUM 10 MG TABS TAKE 1 TABLET BY MOUTH AT BEDTIME FOR CHOLESTEROL 09/09 PRAVASTATIN SODIUM 24022678536 Govind Dodson APRN VITAMIN D3 1.25 MG (94668 UT) CAPS TAKE 1 CAPSULE BY MOUTH ONCE PER WEEK 09/08 CHOLECALCIFEROL 56064774272 Govind Dodson APRN ALLOPURINOL 100 MG TABS TAKE 1 TABLET BY MOUTH ONCE A DAY 09/08 ALLOPURINOL 48068824243 Govind Dodson APRN PRAVASTATIN SODIUM 10 MG TABS TAKE 1 TABLET BY MOUTH AT BEDTIME FOR CHOLESTEROL 02/26 PRAVASTATIN SODIUM 22958531430 Govind Dodson APRN METFORMIN HCL 500 MG TABS TAKE 1 TABLET BY MOUTH 2 TIMES A DAY 02/26 METFORMIN HCL 38230510242 Govind Dodson APRN METFORMIN HCL 500 MG TABS TAKE 1 TABLET BY MOUTH 2 TIMES A DAY 02/26 METFORMIN HCL 82970909200 Govind Dodson APRN PRAVASTATIN SODIUM 10 MG TABS TAKE 1 TABLET BY MOUTH AT BEDTIME FOR CHOLESTEROL 02/26 PRAVASTATIN SODIUM 69292467365 Govind Dodson APRN LEVOTHYROXINE SODIUM 75 MCG TABS TAKE 1 TABLET BY MOUTH ONCE A DAY 08/21 LEVOTHYROXINE SODIUM 96790629700 Govind Dodson APRN NAPROXEN 500 MG TABS TAKE 1 TABLET BY MOUTH 2 TIMES A DAY NEEDED 08/21 NAPROXEN 33118515782 Govind Dodson APRN HYDROCHLOROTHIAZIDE 25 MG TABS TAKE ONE TABLET BY MOUTH ONCE DAILY 08/21 HYDROCHLOROTHIAZID E 62653149870 Govind Dodson APRN LEVOTHYROXINE SODIUM 50 MCG TABS TAKE ONE TABLET BY MOUTH ONCE DAILY 08/21 LEVOTHYROXINE SODIUM 27129081560 Govind Dodson APRN Medications Administered No information available. Allergies, Adverse Reactions, Alerts Allergy Name Reaction Description Start Date Severity Statu s Provider BACTRIM RASH Mild Active Govind hastings VIDEO EDITOR Results Date Name Value Unit Range Flag [...] Office Visit: INFLUENZA LABS ORDERED Strep Screen 66756 Laboratory tests ordered RAPID STREP negative Streptoc [...] in Blood ABS NEUTROPH 3450 CELLS/UL 10*3/uL 4181-7693 N Neutrophils [#/volume] in Blood MPV 10.7 [...] mg/dL Plan of Care Type Date Detail Referral [facility] Phy Therapy [facility], [address] [place] [address], [address] Referral [facility]Gastro[facility], [address], [place] Referral Orthopedic Refer ral General Pending [...] COV ID-19 Pending order Urine Dip Manual [id number] Pending order T1 CMP Pending order T1 Lipid Panel Pending order T1 TSH reflex to free T4 Pending order Urine Dip Manual [id number] Pending Order exclud ed from report: Pending [...] Entry Date [facility]-[id number] Medication Reconciliation CPT-3075F Most recent systolic blood pressure 130-139 mm Hg CPT-3078F Most recent diastoli c blood pressure <80 mm Hg CPT-1159F Medication list docu mented in medical record CPT-1160F Review of all medica tions by a prescribing practitioner [facility] 6399 T1 CBC with diff [facility] 45170 T1 CMP [facility] 79441 T1 Lipid Panel [facility] 11735 T1 TSH reflex to free T4 202 11/03/07 [facility] 496 T1 HGBA1c SCT-[id number] Medication Reconciliation CPT-3074F Most recent systolic blood pressure <130 mm Hg CPT-3078F Most recent diastoli c blood pressure <80 mm Hg CPT-1159F Medication list docu mented in medical record CPT-1160F Review of all medica tions by a prescribing practitioner [facility] 395 T1 Urine Culture CPT-1159F Medication list docu mented in medical record CPT-1160F Review of all medica tions by a prescribing practitioner SCT-[id number] Lifestyle education regarding diet 08/07 [facility] 81218 T1 CMP [facility] 6399 T1 CBC with diff [facility] 73532 T1 Lipid Panel [facility] 09231 T1 TSH reflex to free T4 202 10/30/06 [facility] 496 T1 HGBA1c SCT-[id number] Medication Reconciliation Mammo LUCIEN Mammogram CPT-1159F Medication list docu mented in medical record SCT-[id number] Medication Reconciliation [facility] 04514 T1 CMP [facility] 6399 T1 CBC with diff [facility] 87483 T1 Lipid Panel [facility] 496 T1 HGBA1c [facility] 44097 T1 TSH reflex to free T4 202 10/06/00 CPT-3074F Most recent systolic blood pressure <130 mm Hg CPT-3078F Most recent diastoli c blood pressure <80 mm Hg SCT-[id number] Medication Reconciliation CPT-3074F Most recent systolic blood pressure <130 mm Hg CPT-3078F Most recent diastoli c blood pressure <80 mm Hg CPT-1159F Medication list docu mented in medical record CPT-1160F Review of all medica tions by a prescribing practitioner US URQ LUCIEN Ultrasound RUQ SCT-[id number] Lifestyle education regarding diet 07/25 [facility] 22289 T1 CMP [facility] 6399 T1 CBC with diff [facility] 496 T1 HGBA1c [facility] 37795 T1 Lipid Panel [facility] 66359 T1 TSH reflex to free T4 09/29/24 [facility] 4418 T2 Rheumatoid Factor Quant 2 [facility] 249 T2 BEN [facility] 809 T1 Sedimentation Rate RBC 20 24/07/24 [facility] 38542 T1 Acute Hepatits Panel 2023 [facility] 12263 T2 Vitamin D 25 Hydroxy 2023 [facility] CPT-37171 Strep Screen 53900 7 CPT-3074F Most recent systolic blood pressure <130 mm Hg CPT-3079F Most recent diastoli c blood pressure 80-89 mm Hg CPT-1159F Medication list docu mented in medical record SCT-[id number] Medication Reconciliation SCT-[id number] Never smoker CPT-1159F Medication list docu mented in medical record CPT-1160F Review of all medica tions by a prescribing practitioner [facility] 37824 T1 CMP [facility] 6399 T1 CBC with diff [facility] 496 T1 HGBA1c [facility] 21067 T1 Lipid Panel [facility] 50230 T1 TSH reflex to free T4 09/04/26 [facility] 39539 T2 Vitamin D 25 Hydroxy 2022 Mammo LUCIEN Mammogram SCT-[id number] Medication Reconciliation CPT-3074F Most recent systolic blood pressure <130 mm Hg CPT-3079F Most recent diastoli c blood pressure 80-89 mm Hg SCT-[id number] Medication Reconciliation [facility] 6399 T1 CBC with diff [facility] 47701 T1 CMP [facility] 496 T1 HGBA1c [facility] 23899 T1 Lipid Panel [facility] 32038 T1 TSH reflex to free T4 202 [...] Medication list docu mented in medical record SCT-[id number] Medication Reconciliation SCT-632836985 Giving encouragement to exercise SCT-966528471 Dietary management education/guidance/counseling SCT-529912731 Lifestyle education regarding diet 04/26 SCT-018438599 Prescribed activity/exercise education [facility] 91256 T1 CMP [facility] 496 T1 HGBA1c [facility] 63399 T1 Lipid Panel [facility] 50422 T1 TSH reflex to free T4 08/10/26 [facility] 61515 T2 Vitamin D 25 Hydroxy 2021 SCT-[id number] Medication Reconciliation [id number],[id number] Lipid Profile [id number] SGPT (ALT) [id number] SGOT (AST) [facility] 6399 T1 CBC with diff [facility] 70743 T1 CMP [facility] 496 T1 HGBA1c [facility] 01085 T1 Lipid Panel [facility] 99193 T1 TSH reflex to free T4 08/04/28 [facility] 905 T1 Uric Acid Mammo LUCIEN Mammogram CPT-3077F Most recent systolic blood pressure >=140 mm Hg CPT-3079F Most recent diastolic blood pressure 80-8 9 mm Hg CPT 765[address] [place] [address] SCT-[id number] Medication Reconciliation [facility] 25586 Patient Pay- COVID-19 07/10 SCT-[id number] Medication Reconciliation CPT-3074F Most recent systolic blood pressure <130 mm Hg CPT-3078F Most recent diastoli c blood pressure <80 mm Hg CPT-1159F Medication list docu mented in medical record CPT-1160F Review of all medica tions by a prescribing practitioner [facility] 16077 T1 CMP [facility] 6399 T1 CBC with diff [facility] 496 T1 HGBA1c [facility] 61757 T1 TSH reflex to free T4 07/10/06 CT ABD & PELV W&WO CT Abdomen and Pelvis w & w-out con trast CPT-1159F Medication list docu mented in medical record SCT-[id number] Medication Reconciliation CPT-1160F Review of all medica tions by a prescribing practitioner SCT-385741614 Giving encouragement to exercise SCT-458660262 Dietary management education/guidance/counseling SCT-773469751 Lifestyle education regarding diet 12/15 SCT-488114534 Prescribed activity/exercise education 2 [facility] 243 T1 Amylase [facility] 6399 T1 CBC with diff [facility] 80966 T1 CMP [facility] 606 T1 Lipase [facility] 27379 Patient Pay- COVID-19 12/15 [place] [facility] Ultrasound Gall Bladder 2020 [id number] Medication Reconciliation [facility] 80617 Patient Pay- COVID-19 10/21 [id number] Medication Reconciliation CPT-3075F Most recent systolic blood pressure 130-139 mm Hg CPT-3078F Most recent diastoli c blood pressure <80 mm Hg CPT-85565 Urine Dip Manual 00126 09/08 CPT-1159F Medication list docu mented in medical record CPT-1160F Review of all medica tions by a prescribing practitioner [id number] Giving encouragement to exercise SCT-[id number] Dietary management education/guidance/counseling SCT-780406666 Lifestyle education regarding diet 09/08 SCT-[id number] Prescribed activity/exercise education 2 [facility] 59908 T1 CMP [facility] 23725 T1 Lipid Panel [facility] 04574 T1 TSH reflex to free T4 202 07/03/10 SCT-[id number] Medication Reconciliation CPT-3074F Most recent systolic blood pressure <130 mm Hg CPT-3079F Most recent diastoli c blood pressure 80-89 mm Hg CPT-1159F Medication list docu mented in medical record CPT-1160F Review of all medica tions by a prescribing practitioner X-Ray Shoulder Right X-Ray Shoulder Right [facility] 06278 T1 CMP [facility] 496 T1 HGBA1c [facility] 87455 T1 TSH reflex to free T4 202 [facility] 40191 T1 Lipid Panel [id number] Medication Reconciliation SCT-[id number] Medication Reconciliation Other Other CPT-3075F Most recent systolic blood pressure 130-139 mm Hg CPT-3079F Most recent diastoli c blood pressure 80-89 mm Hg ORTHO GEN Orthopedic Referral General X-Ray Knee Right X-Ray Knee Right [facility] 496 T1 HGBA1c [facility] 78656 T1 Acute Hepatits Panel 2019 MRI KNEE WO [facility] MRI Knee w-o contrast 202 SCT-[id number] Medication Reconciliation [facility] 6399 T1 CBC with diff [facility] 03678 T1 CMP [facility] 16439 T1 Lipid Panel [facility] 64623 T1 TSH reflex to free T4 202 CPT-3074F Most recent systolic blood pressure <130 mm Hg CPT-3079F Most recent diastoli c blood pressure 80-89 mm Hg [facility] 06567 T2 BV Yeast Trich Culture (Affirm) 08/21 X-Ray Foot Left X-Ray Foot Left 1 SCT-[id number] Giving encouragement to exercise SCT-488139109 Dietary management education/guidance/counseling SCT-535986034 Lifestyle education regarding diet 08/21 SCT-967419861 Prescribed activity/exercise education 2 CPT-29677 Urine Dip Auto 83669 Mammo LUCIEN Mammogram Vital Signs Date Name [...]
--- OUTSIDE RECORDS SUMMARY | 2025-05-06 18:57 | XMS_ITS | Encounter Summary ---
Author Organization [employer] ([place], [place], [place], [place], [place]) Address [address] [place] [address] Care Team Providers Care Industrial Safety And Health Specialist Name Role Phone Krystyna Elliott [facility] Primary Care Provider Nick Rasmussen PA-C Unavailable [phone] Lena Aguilera APRN Primary Care Provider [phone] Nimisha Ty PA-C Unavailable [phone] Encounter Details Date Type Department Care Team (Late st Contact Info) Description 12/17/2019 Transcribed Document [address] [address] Provider, Audra Hargrove MD Social [...] - [facility] ProviderMD - 12/17/2019 10:36 AM EDT [facility] Main OR PostOp Summary Primary Physician: DRAGAN FLAHERTY MD-ORT Finalized Date/Time: 12/17/19 11:48:29 Pt. Name: ANISA KATZ /Sex: 1965 Female Med Rec #: [id number] Physician: DRAGAN FLAHERTY MD-ORT Financial #: [id number] Pt. Type: O Room/Bed: [facility]/4 Admit/Disch: 12/17/19 04:47:00 - Institution: [facility] Main OR PostOp Case Times Entry 1 In PACU II 12/17/19 10:40:00 Ready for PACU II 12/17/19 11:48:00 Discharge Discharge from PACU 12/17/19 11:48:00 II Last Modified By: Erin Orta RN 12/17/19 11:48:22 [facility] Main OR PostOp Case Times Audit 12/17/19 11:48:22 Airborne Weapons Technical Manager: SXPOWERS Modifier: HELFEP 1 <+> Ready [...] Visit [facility] Orthopedics - [address] [place] [address] Nick Rasmussen PA-C [address] [place] [address] 08/19/2025 9:30 AM EST Appointment [facility] Breast [facility] [address] [place] [address] documented as of this encounter Visit Diagnoses Not on filedocumented in this encounter Care Teams Industrial Safety And Health Specialist Relationship Specialty Start Date End Date Krystyna Elliott [facility] [address] [address] PCP - General 09/19/22 10/27/23 Lena Aguilera, KALIN [address] [place] [address] PCP - General Family Medicine 10/28/23 Nick Rasmussen PA-C [address] [place] [address] Orthopedic Surgery 08/07/23 Nimisha yT PA-C [address] [place] [address] Physician Chainstitch Sewing Machine Operator Orthopedic Surgery 02/05/24 documented as of this encounter
--- OUTSIDE RECORDS SUMMARY | 2025-05-06 18:57 | XMS_ITS | Encounter Summary ---
Author Organization [employer] ([place], [place], [place], [place], [place]) Address [address] [place] [address] Care Team Providers Care Cloth Shader Name Role Phone Krystyna Elliott [facility] Primary Care Provider Nick Rasmussen PA-C Unavailable [phone] Lena Aguilera APRN Primary Care Provider [phone] Nimisha Ty PA-C Unavailable [phone] Encounter Details Date Type Department Care Team (Late st Contact Info) Description 12/17/2019 Transcribed Document [facility] [address] [place] [address] Provider, Audra Hargrove MD Social History Tobacco Use Types Packs/Day Years Used Date Smoking Tobacco: Never Assessed Comments Unknown Sex and Gender Information Value Date Recorded Sex Assigned at Not on file Legal Sex Female 6:57 PM CDT Gender Identity Not on file Sexual Orientation Not on file documented as of this encounter Miscellaneous Notes * Cerner Conversion Note - [facility] ProviderMD - 12/17/2019 9:10 AM EDT Pre Procedure Adult Entered On: 12/17/2019 8:16 EDT Performed On: 12/17/2019 8:10 EDT by Paola Lacy RN Height and Weight, Clinical Dosing Height Source : Stated Height Entry Format : [place] Height, Feet : 5 ft(Converted to: 152 cm, 60 Inch) Height, Inches : 3 Inch(Converted to: 0 ft 3 Inch, 7.62 cm) Clinical Height : 160.02 cm Weight Source : Standing scale Weight Entry Format : [place] Clinical [facility] Weight : 101.36 kg Weight, Pounds : 223 lb Body Surface Area (BSA) : 2.03 m2 Body Mass Index : 39.6 kg/m2 (HI) [place] Body Weight : 52 kg Paola Lacy [...] Where was the COVID-19 Testing completed? : [facility] Where are the test results? : In [...] Paola Lacy RN - 12/17/2019 8:10 EDT [place] Suicide Severity Rating Scale (C-SSRS) CSSRS Past [...] Obtained From : Patient Primary Language : Faroese Preferred Communication Mode : Verbal Communication Barrier [...] Scale Risk Level : 25-45 Medium Risk [place] Fall Interventions : Adequate lighting, Bed in [...] rendition version of the form. Cosme Coma Pettus Best Motor Response : Obey commands Cosme Best Verbal Response : Oriented Cosme Eye Opening Response : Spontaneous Pettus Coma Score : 15 Paola Lacy RN - 12/17/2019 8:10 EDT documented in this encounter Plan of Treatment Upcoming Encounters Date Type Department Care Team (Late st Contact Info) Description 05/20/2025 8:30 AM EST Office Visit [facility] Orthopedics - [address] [place] [address] Nick Rasmussen PA-C [address] [place] [address] 08/19/2025 9:30 AM EST Appointment [facility] Breast [facility] [address] [place] [address] documented as of this encounter Visit Diagnoses Not on filedocumented in this encounter Care Teams Cloth Shader Relationship Specialty Start Date End Date [facility] [place] [address] PCP - General 09/19/22 10/27/23 Lena Aguilera APRN [address] [place] [address] PCP - General Family Medicine 10/28/23 Nick Rasmussen PA-C [address] [place] [address] Orthopedic Surgery 08/07/23 Nimisha Ty PA-C [address] [place], [place] [id number] Physician Grain Mixer Orthopedic Surgery 02/05/24 documented as of this encounter
--- OUTSIDE RECORDS SUMMARY | 2025-05-06 18:57 | XMS_ITS | Encounter Summary ---
Author Organization [employer] ([place], [place], [place], [place], [place]) Address [address] [place] [address] Care Team Providers Care Art Educator Name Role Phone Krystyna Elliott [facility] Primary Care Provider Nick Rasmussen PA-C Unavailable [phone] Lena Aguilera APRN Primary Care Provider [phone] Nimisha Ty PA-C Unavailable Encounter Details Date Type Department Care Team (Late st Contact Info) Description 12/17/2019 Transcribed Document [facility] [address] [place] [address] Provider, Audra Hargrove MD Social [...] * Cerner Conversion Note - [facility] [place] [facility]ena Ogden MD - 12/17/2019 11:28 AM [...] and water are not available, use hand food safety coordinator. ? Change your dressing as told by [...] medicines you take. General instructions ??? Take glsi-fyo-dymyrvq and prescription medicines only as told by [...] fried or sweet foods. ? Take an kkeh-qzz-srwmkfp or prescription medicines for constipation. ??? Do [...] 01/04/2006 Document Revised: 04/30/2018 Document Reviewed: 04/30/2018 [employer] Interactive Patient Education ? 2019 [employer]. documented in this encounter Plan of Treatment Upcoming Encounters Date Type Department Care Team (Late st Contact Info) Description 05/20/2025 8:30 AM EST Office Visit [facility] Orthopedics - [address] [place] [address] Nick Rasmussen PA-C [address] [place] [address] 08/19/2025 9:30 AM EST Appointment [facility] [address] [place] [address] documented as of this encounter Visit Diagnoses Not on filedocumented in this encounter Care Teams Art Educator Relationship Specialty Start Date End Date [facility] [place] [address] PCP - General 09/19/22 10/27/23 Lena Aguilera APRN [address] [place] [address] PCP - General Family Medicine 10/28/23 Nick Rasmussen PA-C [address] [place] [address] Orthopedic Surgery 08/07/23 Nimisha Ty PA-C [address] [place] [address] Physician Snuff Grinder And Screener Orthopedic Surgery 02/05/24 documented as of this encounter
== END 2025-05-06 23:59 | disposition home or self-care (01) ==
LOC: LAB.DROPOF 18:55
PROVIDERS: PCP Student in an Organized Health Care Education/Training Program; Visit Provider Family Medicine
DX: N39.0 Urinary tract infection, site not specified (principal)
CPT/HCPCS: 87086; 87088